=== PATIENT | male | born 1955 | race Caucasian/White ===

== ENCOUNTER 2018-12-04 01:06 | Inpatient (IN) | payer BC, MEDICARE, OTHER ==
[~2018-12-04] VITALS: Ht 180.3 cm; Wt 157.1 kg
[~2018-12-04 01:06] MED LIST: ASPI-587 PO; ATOR20TA66 PO; CEPH500C PO; CLIN-81 PO; GABA-488 PO; HYDR-3583 PO; HYDR-3714 PO; INSU100I14 SQ; INSU100I29 SQ; ISOS30TA3 PO; LEVE1U SQ; LIRA0.6P3 SQ; LISI10TA2 PO; LOVA10TA PO; METF-380 PO; METF-399 PO; METO-352 PO; MTP25TSR PO; NITR0.4T SL; NOVLOG SC; OMEG-160 PO; VITAMIN PACK PO; [UNRECOGNIZED DRUG - OTHER] PO
[2018-12-04 01:25] LABS: BASOPHILS % (AUTO) 0 % (0-10); EOSINOPHILS % (AUTO) 0 % (0-10); HEMATOCRIT 38 % (40-54); HEMOGLOBIN 12.8 G/DL (13.3-17.7); LYMPHOCYTES # (AUTO) 0.6 X 10^3 (1.0-4.0); LYMPHOCYTES % (AUTO) 3 % (12-44); MEAN CORPUSCULAR HEMOGLOBIN 30 PG (25-34); MEAN CORPUSCULAR HGB CONC 33 G/DL (32-36); MEAN CORPUSCULAR VOLUME 90 FL (80-99); MEAN PLATELET VOLUME 9.9 FL (7.4-10.4); MONOCYTES # (AUTO) 0.8 X 10^3 (0.0-1.0); MONOCYTES % (AUTO) 5 % (0-12); NEUTROPHILS # (AUTO) 15.8 X 10^3 (1.8-7.8); NEUTROPHILS % (AUTO) 92 % (42-75); PLATELET COUNT 222 10^3/uL (130-400); RED CELL DISTRIBUTION WIDTH 14.2 % (10.0-14.5); WHITE BLOOD COUNT 17.1 10^3/uL (4.3-11.0)
[2018-12-04] MEDS ORDERED: IBUPROFEN 800 MG (MOTRIN) TAB PO ONE (01:30)
[2018-12-04] MEDS ORDERED: ACETAMINOPHEN 500 MG TAB (TYLENOL) PO ONE (01:30)
[2018-12-04 01:34] LABS: INR 1.1 (0.8-1.4); PROTHROMBIN TIME PATIENT 14.9 SEC (12.2-14.7)
[2018-12-04 01:41] LABS: ALBUMIN 4.1 GM/DL (3.2-4.5); BILIRUBIN,TOTAL 0.6 MG/DL (0.1-1.0); CALCIUM 9.1 MG/DL (8.5-10.1); CREATININE SERUM 1.89 MG/DL (0.60-1.30); TOTAL PROTEIN 7.8 GM/DL (6.4-8.2)
[2018-12-04 01:52] LABS: BAND NEUTROPHILS 15 %; LYMPHOCYTES % (MANUAL) 5 %; MONOCYTES % (MANUAL) 7 %; NEUTROPHILS % (MANUAL) 72 %; RBC MORPH NORMAL; TOXIC GRANULATION/VACUOLAZATIO 1+
--- NOTE | 2018-12-04 02:07 | ED General ---
General Chief Complaint: Fever-Adult/Adol Stated Complaint: COUGH,FEVER Nursing Triage Note: fever, dry cough, intermittant abdominal/chest wall pain with coughing x2 weeks. left leg swelling x3 weeks Nursing Sepsis Screen: Possible Sepsis Risk Source of Information: Patient (LIMITED HISTORIAN), EMS History of Present Illness Date Seen by Provider: Dec 04, 2018 Time Seen by Provider: 01:05 Initial Comments PT ARRIVES VIA EMS EMS WAS CALLED BY PT'S . PT WAS IN THE CAR, AND WAS PICKING UP HIS FROM WORK, AND REPORTED TO EMS THAT HE WAS NOT ACTING LIKE HIMSELF EMS NOTED THAT PT HAD TEMP OF 102.9 AT THE SCENE--NO MEDICATIONS GIVEN FOR FEVER. PT WAS UNAWARE THAT HE HAD FEVER PT STATES HE HAS HAD AN NON-PRODUCTIVE COUGH FOR "A COUPLE OF WEEKS" STATES COUGHING MAKES HIS CHEST AND HIS ABDOMEN HURT. + NAUSEA, NO VOMITING IS SHORT OF BREATH WITH MINIMAL EXERTION, NOTED BY EMS. O2 SAT 90-91% ON ROOM AIR, UP TO 97-98% ON O2 AT 2L/NC, PER EMS ACCUCHECK 161 BY EMS PT HAS HAD LEFT LEG SWELLING AND REDNESS FOR 3 WEEKS ON ARRIVAL, PT IS NOT WEARING ANY PANTS OR UNDERWEAR--IS ONLY WEARING A SLEEVELESS T-SHIRT, AND SHOES/BOOTS AND SOCKS. 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 PT STATES HE SAW DR. ALEXIS 'A COUPLE OF WEEKS AGO" --FOR ROUTINE EXAM, AND MEDICATION REFILLS, BUT DID NOT ADDRESS PT'S CURRENT COMPLAINTS. PT STATES THAT HE DID HAVE A FEVER WHEN HE WAS IN THE OFFICE, BUT DOES NOT KNOW WHAT THE READING WAS. PT STATES HE HAS NOT CHECKED HIS TEMP AT HOME, AND HAS NOT TAKEN ANYTHING FOR SYMPTOMS PCP: DR. ALEXIS, [facility] Allergies and Home Medications Allergies Coded Allergies: JORGEANo Known Allergies (Verified Allergy, Unknown, 05/15/05) Home Medications Aspirin 81 Mg Tablet., 81 MG PO DAILY, (Reported) Gabapentin 300 Mg Capsule, 300 MG PO BID Prescribed by: ROME RAINEY on 08/18/15 0631 Insulin Aspart 300 Units/3 Ml Solution, 20 UNITS SQ AC, (Reported) WILL ADJUST BY 1 TO 2 UNITS BASED ON WHAT HE IS EATING Insulin Detemir 100 Unit/1 Ml Insuln.pen, 58 UNITS SQ HS, (Reported) Isosorbide Mononitrate 30 Mg Tab.er.24h, 30 MG PO DAILY, (Reported) Liraglutide 0.6 Mg/0.1 Ml Pen.injctr, 1.8 MG SQ HS, (Reported) Lisinopril 10 Mg Tablet, 10 MG PO HS, (Reported) Lovastatin 10 Mg Tablet, 10 MG PO DAILY, (Reported) Metformin HCl 1,000 Mg Tablet, 1,000 MG PO BID, (Reported) Metoprolol Succinate 50 Mg Tab.er.24h, 50 MG PO DAILY, (Reported) Nitroglycerin 0.4 Mg Tab.subl, 0.4 MG SL Q5M PRN for CHEST PAIN Prescribed by: JOHN MOHAN on 06/11/15 1147 [place]-3/Dha/Epa/Fish Oil 1 Each Capsule, 1,000 MG PO DAILY, (Reported) [Vitamin Pack] , 1 PACKET PO DAILY, (Reported) Patient Home Medication List Home Medication List Reviewed: Yes Review of Systems Review of Systems Constitutional: fever Respiratory: cough; No short of breath, No wheezing Cardiovascular: see HPI, chest pain Gastrointestinal: see HPI, abdominal pain, nausea; No vomiting Genitourinary: no symptoms reported Musculoskeletal: see HPI Skin: see HPI Psychiatric/Neurological: See HPI; Denies Headache, Denies Numbness, Denies Paresthesia Hematologic/Lymphatic: No Symptoms Reported Immunological/Allergic: no symptoms reported Past Dqzevwt-Qcpudo-Gdjbib Hx Past Med/Social Hx: Reviewed and Corrections made Patient Social History Alcohol Use: Occasionally Uses (HISTORY OF ABUSE--STATES HE USED TO DRINK 3 GALLONS OF WHISKEY / MONTH--OVER 20 YEARS AGO, CLAIMS NOW HE ONLY OCCASIONALLY DRINKS. ) Recreational Drug Use: No Smoking Status: Former Smoker (3 PPD, QUIT 2004 OR 2005) Former Smoker, Quit: Aug 15, 2005 Recent Foreign Travel: No Contact w/Someone Who Travel: No Recent Infectious Disease Expo: No Recent Hopitalizations: No Physical Abuse: No Sexual Abuse: No Mistreated: No Fear: No Immunizations Up To Date Tetanus Booster (TDap): More than 5yrs Seasonal Allergies Seasonal Allergies: No Past Medical History Surgeries: Yes (UMBILICAL/VENTRAL HERNIA REPAIR, THEN INCISIONAL HERNIA REPAIR; CARDIAC CATH--NO INTERVENTION) Abdominal, Cardiac Respiratory: No (FORMER SMOKER 3 PPD, QUIT 2004 OR 2005) Currently Using CPAP: No Currently Using BIPAP: No Cardiac: Yes (CARDIAC CATH--NO INTERVENTION) Chronic Edema/Swelling, High Cholesterol, Hypertension Neurological: Yes Neuropathy Reproductive Disorders: No Sexually Transmitted Disease: No Genitourinary: No Gastrointestinal: Yes Abdominal Hernia Musculoskeletal: No Endocrine: Yes (MORBID OBESITY) Diabetes, Insulin dep HEENT: No Loss of Vision: Denies Hearing Impairment: Denies Cancer: No Psychosocial: No Integumentary: No Blood Disorders: No Family Medical History Diabetes mellitus 19 FATHER G8 BROTHER Hypertension G8 BROTHER Myocardial infarction 19 FATHER, Onset:50's - 60 Physical Exam Vital Signs Vital Signs - First Documented 12/04/18 01:08 Temp 40.3 Pulse 124 Resp 22 B/P (MAP) 178/104 (128) Pulse Ox 97 O2 Delivery Nasal Cannula O2 Flow Rate 2.00 Capillary Refill : Less Than 3 Seconds Height, Weight, BMI Height: 5'11" Weight: 260lbs. 0.0oz. 117.787740zl; 36.00 BMI Method:Stated General Appearance: Mild Distress (MILDLY DYSPNEIC ON ARRIVAL), Obese (MORBID), Other (DIRTY, MALODOROUS) HEENT: PERRL/EOMI, Other (POOR DENTITION WITH EXTENSIVE DECAY TO FEW REMAINING TEETH. ) Neck: Normal Inspection Respiratory: Decreased Breath Sounds; No Rales; Respiratory Distress (MILD); No Rhonci, No Wheezing; Other (TACHYPNEIC, LUNG SOUNDS DIMINISHED IN BASES) Cardiovascular: Tachycardia (130'S) Gastrointestinal: Non Tender, Soft Extremity: Normal Capillary Refill, Other (4+ EDEMA ON LEFT LOWER LEG, WITH DIFFUSE ERYTHEMA AND WARMTH TO LEFT LOWER LEG. HAS MULTIPLE SUPERFICIAL SCRATCHES TO LOWER LEGS, BUT NO SPECIFIC WOUND APPEARS TO BE THE SOURCE OF INFECTION. NO DRAINAGE. NO STREAKS. NO AREAS OF FLUCTUANCE. RIGHT LEG WITH 3+ EDEMA. STRONG PEDAL PULSES BILATERALLY. MOTOR/SENSORY INTACT. ) Neurologic/Psychiatric: Alert, Oriented x3 (BUT SLIGHTLY SLOW MENTATION ?), No Motor/Sensory Deficits, Normal Mood/Affect, figure model II-XII Norm as Tested Skin: Normal Color, Warm/Dry, Other ( ABOVE) Focused Exam Sepsis Stage: Sepsis Possible Source: Pulmonary Lactate Level 12/04/18 01:12: Lactic Acid Level 1.46 Time of Focused Exam: 02:30 Respiratory: Normal Breath Sounds, No Accessory Muscle Use, No Respiratory Distress Cardiovascular: Regular Rate, Rhythm, No Murmur, Normal Peripheral Pulses Skin: normal color, warm/dry Lactic Acid Level Within 3hrs of presentation: Admin fluids, Admin ABX, Blood cultures prior to ABX's, Focus exam, Lactate level Progress/Results/Core Measures Suspected Sepsis Recent Fever Within 48 Hours: Yes Infection Criteria Present: Suspected New Infection New/Unexplained Altered Menta: No Sepsis Screen: Possible Sepsis Risk SIRS Temperature: Pulse: 123 Respiratory Rate: 22 Laboratory Tests 12/04/18 01:12: White Blood Count 17.1H 12/04/18 05:17: White Blood Count 17.4H Blood Pressure 168 /113 Mean: 131 12/04/18 01:12: Lactic Acid Level 1.46 Laboratory Tests 12/04/18 01:12: Creatinine 1.89H, INR Comment 1.1, Platelet Count 222, Total Bilirubin 0.6 12/04/18 05:17: Creatinine 1.93H, Platelet Count 203, Total Bilirubin 0.7 Results/Orders Lab Results Laboratory Tests Test 12/04/18 01:12 12/04/18 02:27 12/04/18 05:17 Range/Units White Blood Count 17.1 H 17.4 H 4.3-11.0 10^3/uL Red Blood Count 4.25 L 3.84 L 4.35-5.85 10^6/uL Hemoglobin 12.8 L 11.6 L 13.3-17.7 G/DL Hematocrit 38 L 35 L 40-54 % Mean Corpuscular Volume 90 91 80-99 FL Mean Corpuscular Hemoglobin 30 30 25-34 PG Mean Corpuscular Hemoglobin Concent 33 33 32-36 G/DL Red Cell Distribution Width 14.2 14.3 10.0-14.5 % Platelet Count 222 203 130-400 10^3/uL Mean Platelet Volume 9.9 10.1 7.4-10.4 FL Neutrophils (%) (Auto) 92 H 89 H 42-75 % Lymphocytes (%) (Auto) 3 L 4 L 12-44 % Monocytes (%) (Auto) 5 7 0-12 % Eosinophils (%) (Auto) 0 0 0-10 % Basophils (%) (Auto) 0 0 0-10 % Neutrophils # (Auto) 15.8 H 15.6 H 1.8-7.8 X 10^3 Lymphocytes # (Auto) 0.6 L 0.6 L 1.0-4.0 X 10^3 Monocytes # (Auto) 0.8 1.2 H 0.0-1.0 X 10^3 Eosinophils # (Auto) 0.0 0.0 0.0-0.3 10^3/uL Basophils # (Auto) 0.0 0.0 0.0-0.1 10^3/uL Neutrophils % (Manual) 72 % Lymphocytes % (Manual) 5 % Monocytes % (Manual) 7 % Band Neutrophils 15 % Toxic Granulation 1+ Blood Morphology Comment NORMAL Prothrombin Time 14.9 H 12.2-14.7 SEC INR Comment 1.1 0.8-1.4 Activated Partial Thromboplast Time 30 24-35 SEC Sodium Level 139 139 135-145 MMOL/L Potassium Level 5.0 4.6 3.6-5.0 MMOL/L Chloride Level 104 107 98-107 MMOL/L Carbon Dioxide Level 21 20 L 21-32 MMOL/L Anion Gap 14 12 5-14 MMOL/L Blood Urea Nitrogen 32 H 33 H 7-18 MG/DL Creatinine 1.89 H 1.93 H 0.60-1.30 MG/DL Estimat Glomerular Filtration Rate 36 35 BUN/Creatinine Ratio 17 17 Glucose Level 146 H 156 H 70-105 MG/DL Lactic Acid Level 1.46 0.50-2.00 MMOL/L Calcium Level 9.1 8.2 L 8.5-10.1 MG/DL Corrected Calcium 9.0 8.5 8.5-10.1 MG/DL Magnesium Level 1.8 1.6-2.4 MG/DL Total Bilirubin 0.6 0.7 0.1-1.0 MG/DL Aspartate Amino Transf (AST/SGOT) 22 17 5-34 U/L Alanine Aminotransferase (ALT/SGPT) 26 22 0-55 U/L Alkaline Phosphatase 61 51 40-136 U/L Troponin I < 0.028 <0.028 NG/ML B-Type Natriuretic Peptide 313.4 H <100.0 PG/ML Total Protein 7.8 6.6 6.4-8.2 GM/DL Albumin 4.1 3.6 3.2-4.5 GM/DL Amylase Level 44 25-125 U/L Lipase 16 8-78 U/L TSH [place] Testing 1.31 0.35-4.94 UIU/ML Urine Color YELLOW Urine Clarity CLEAR Urine pH 6 5-9 Urine Specific [place] 1.015 L 1.016-1.022 Urine Protein 4+ NEGATIVE Urine Glucose (UA) 4+ H NEGATIVE Urine Ketones 1+ H NEGATIVE Urine Nitrite NEGATIVE NEGATIVE Urine Bilirubin NEGATIVE NEGATIVE Urine Urobilinogen NORMAL NORMAL MG/DL Urine Leukocyte Esterase NEGATIVE NEGATIVE Urine RBC (Auto) 4+ H NEGATIVE Urine RBC 50-100 H /HPF Urine WBC RARE /HPF Urine Squamous Epithelial Cells 0-2 /HPF Urine Crystals NONE /LPF Urine Bacteria FEW H /HPF Urine Casts NONE /LPF Urine Mucus NEGATIVE /LPF Urine Culture Indicated CULTURE PENDING Micro Results Microbiology 12/04/18 Influenza Types A,B Antigen (TISHA) - Final, Complete My Orders Orders - HEAVENLY RIVERA DO Cbc With Automated Diff (12/04/18 01:07) Comprehensive Metabolic Panel (12/04/18 01:07) Blood Culture (12/04/18 01:07) Sputum Culture (12/04/18 01:07) Urinalysis (12/04/18 01:07) Urine Culture (12/04/18 01:07) Protime With Inr (12/04/18 01:07) Partial Thromboplastin Time (12/04/18 01:07) Chest 1 View, Ap/Pa Only (12/04/18 01:07) Ed Iv/Invasive Line Start (12/04/18 01:07) Ed Iv/Invasive Line Start (12/04/18 01:07) Vital Signs Adult Sepsis Patie Q15M (12/04/18 01:07) O2 (12/04/18 01:07) Remove Rings In Anticipation O (12/04/18 01:07) Lactic Acid Analyzer (12/04/18 01:07) Influenza A And B Antigens (12/04/18 01:07) Acetaminophen Tablet (Tylenol Tablet) (12/04/18 01:30) Ibuprofen Tablet (Motrin Tablet) (12/04/18 01:30) Manual Differential (12/04/18 01:12) BNP (12/04/18 02:15) Magnesium (12/04/18 02:15) Thyroid Analyzer (12/04/18 02:15) Ed Iv/Invasive Line Start (12/04/18 02:15) Ns Iv 1000 Ml (Sodium Chloride 0.9%) (12/04/18 02:15) Troponin I (12/04/18 02:18) Piperacillin Sodium/Tazobactam (Zosyn Vi (12/04/18 02:30) Vancomycin Injection (Vancomycin Injecti (12/04/18 02:30) Ns (Ivpb) (Sodium Chloride 0.9% Ivpb Bag (12/04/18 02:15) Piperacillin Sodium/Tazobactam (Zosyn Vi (12/04/18 02:15) Vancomycin Injection (Vancomycin Injecti (12/04/18 02:15) Ns (Ivpb) (Sodium Chloride 0.9%) (12/04/18 02:15) Amylase (12/04/18 02:26) Lipase (12/04/18 02:26) Enoxaparin Injection (Lovenox Injection) (12/04/18 02:45) Medications Given in ED Current Medications Medications Dose Ordered Sig/Mayra Route Start Time Stop Time Status Last Admin Dose Admin Acetaminophen 1,000 mg ONCE ONCE PO 12/04/18 01:30 12/04/18 01:31 DC 12/04/18 01:23 1,000 MG Enoxaparin Sodium 120 mg ONCE ONCE SC 12/04/18 02:45 12/04/18 02:46 DC 12/04/18 02:50 120 MG Ibuprofen 800 mg ONCE ONCE PO 12/04/18 01:30 12/04/18 01:31 DC 12/04/18 01:23 800 MG Piperacillin Sod/ Tazobactam Sod 4.5 gm/Sodium Chloride 100 ml @ 200 mls/hr ONCE ONCE IV 12/04/18 02:30 12/04/18 02:59 DC 12/04/18 02:31 200 MLS/HR Vancomycin HCl 1000 mg/Sodium Chloride 250 ml @ 250 mls/hr ONCE ONCE IV 12/04/18 02:30 12/04/18 03:29 DC 12/04/18 03:06 250 MLS/HR Vital Signs/I&O 12/04/18 12/04/18 12/04/18 12/04/18 01:08 01:20 01:23 01:23 Temp 40.3 40.3 40.3 Pulse 124 Resp 22 B/P (MAP) 178/104 (128) Pulse Ox 97 97 O2 Delivery Nasal Cannula Nasal Cannula O2 Flow Rate 2.00 2.00 12/04/18 12/04/18 12/04/18 12/04/18 01:41 02:55 04:05 05:12 Temp 40.3 39.2 37.5 37.5 Pulse 123 116 84 84 Resp 22 16 20 B/P (MAP) 168/113 144/77 (131) 127/69 Pulse Ox 95 95 95 95 O2 Delivery Nasal Cannula Nasal Cannula Nasal Cannula O2 Flow Rate 2.00 2.00 4.00 12/04/18 12/04/18 05:15 05:39 Pulse 78 Pulse Ox 95 O2 Delivery Nasal Cannula O2 Flow Rate 4.00 Capillary Refill : Less Than 3 Seconds Blood Pressure Mean: 131 Progress Note : Progress Note O2 SATS 90-91% ON ROOM AIR--UP TO 98% ON 2L/NC TEMP 104 ON ARRIVAL HEART RATE IN 130'S ON ARRIVAL BP 170'S / 110'S ON ARRIVAL RESPIRATORY RATE IN 30'S ON ARRIVAL NO DETERIORATION IN PT'S CONDITION DURING ER STAY TEMP DOWN, HEART RATE DOWN, RESPIRATORY RATE DOWN, AND BP DOWN AT TIME OF ADMIT-NOW CLOSER TO NORMAL RANGE. ECG Initial ECG Impression Date: Dec 04, 2018 Initial ECG Impression Time: 01:24 Initial ECG Rate: 120 Initial ECG Impression: Nonspecific Changes Comment JUNCTIONAL TACHYCARDIA Diagnostic Imaging Comments CXR--CARDIOMEGALY, BIBASILAR INFILTRATES/ATELECTASIS, MILD VASCULAR CONGESTION. PENDING RADIOLOGIST REVIEW Reviewed: Reviewed by Me Departure Communication (Admissions) [id number]--SPOKE WITH DR. BUI, HOSPITALIST SUPERINTENDENT [employer] FOR [facility] [place]. ACCEPTS PT FOR ADMIT. WOULD LIKE DR. SMITH AND DR. MILAN CONSULTED. Impression Primary Impression: Sepsis Additional Impressions: Cellulitis of left lower leg Pneumonia IDDM (insulin dependent diabetes mellitus) Chronic renal failure HTN (hypertension) Disposition: ADMITTED INPATIENT Condition: Stable Admissions Decision to Admit Reason: Admit from ER (General) Decision to Admit/Date: Dec 04, 2018 Time/Decision to Admit Time: 02:50 Departure-Patient Inst. Referrals: EB ALEXIS MD (PCP/Family) Primary Care Physician HEAVENLY RIVERA DO Dec 04, 2018 02:07
[2018-12-04] MEDS ORDERED: NS (IVPB) 100 ML ONE (02:15)
[2018-12-04] MEDS ORDERED: NS (IVPB) 250 ML ONE (02:15)
[2018-12-04] MEDS ORDERED: NS IV 1000 ML 1,000 ML IV SCH (02:15)
[2018-12-04] MEDS ORDERED: VANCOMYCIN 1000 MG/VIAL ONE (02:15)
[2018-12-04] MEDS ORDERED: PIPERACILLIN/TAZO 4.5 GM VIAL (ZOSYN) IV ONE (02:15)
[2018-12-04] MEDS ORDERED: PIPERACILLIN SODIUM/TAZOBACTAM 4.5 GM in NS (IVPB) 100 ML IV ONE (02:30)
[2018-12-04] MEDS ORDERED: VANCOMYCIN INJECTION 1,000 MG in NS (IVPB) 250 ML IV ONE (02:30)
[2018-12-04 02:33] LABS: MAGNESIUM 1.8 MG/DL (1.6-2.4)
[2018-12-04 02:38] LABS: BILIRUBIN,URINE NEGATIVE (NEGATIVE); CLARITY,URINE CLEAR; COLOR,URINE YELLOW; GLUCOSE, URINE (UA) 4+ (NEGATIVE); KETONES,URINE 1+ (NEGATIVE); LEUKOCYTE ESTERASE ,URINE NEGATIVE (NEGATIVE); NITRITE,URINE NEGATIVE (NEGATIVE); PH,URINE 6 (5-9); PROTEIN,URINE 4+ (NEGATIVE); UROBILINOGEN,URINE NORMAL (NORMAL)
[2018-12-04 02:44] LABS: AMYLASE 44 U/L (25-125); LIPASE 16 U/L (8-78)
[2018-12-04] MEDS ORDERED: ENOXAPARIN 60 MG/0.6 ML (LOVENOX) SYR SC ONE (02:45)
[2018-12-04 02:47] LABS: RBC,URINE 50-100 /HPF
[2018-12-04 02:48] LABS: BACTERIA,URINE FEW /HPF; SQUAMOUS EPITHELIAL CELL,UR 0-2 /HPF; WBC,URINE RARE /HPF
[2018-12-04 02:54] LABS: TSH (THYROID ANALYZER) 1.31 UIU/ML (0.35-4.94)
[2018-12-04 04:05] VITALS: BP 127/69
[2018-12-04] MEDS: NS IV 1000 ML 1,000 ML IV SCH ×4 (05:00→22:14)
[2018-12-04 05:12] VITALS: BP 127/69
[2018-12-04] MEDS ORDERED: RT-ALBUTEROL/IPRATROPIUM 3 ML (DUONEB) VIAL INH PRN (05:30)
[2018-12-04 06:00] LABS: BASOPHILS % (AUTO) 0 % (0-10); EOSINOPHILS % (AUTO) 0 % (0-10); HEMATOCRIT 35 % (40-54); HEMOGLOBIN 11.6 G/DL (13.3-17.7); LYMPHOCYTES # (AUTO) 0.6 X 10^3 (1.0-4.0); LYMPHOCYTES % (AUTO) 4 % (12-44); MEAN CORPUSCULAR HEMOGLOBIN 30 PG (25-34); MEAN CORPUSCULAR HGB CONC 33 G/DL (32-36); MEAN CORPUSCULAR VOLUME 91 FL (80-99); MEAN PLATELET VOLUME 10.1 FL (7.4-10.4); MONOCYTES # (AUTO) 1.2 X 10^3 (0.0-1.0); MONOCYTES % (AUTO) 7 % (0-12); NEUTROPHILS # (AUTO) 15.6 X 10^3 (1.8-7.8); NEUTROPHILS % (AUTO) 89 % (42-75); PLATELET COUNT 203 10^3/uL (130-400); RED CELL DISTRIBUTION WIDTH 14.3 % (10.0-14.5); WHITE BLOOD COUNT 17.4 10^3/uL (4.3-11.0)
[2018-12-04] MEDS ORDERED: IBUPROFEN 800 MG (MOTRIN) TAB PO PRN (06:00)
[2018-12-04 06:18] LABS: ALBUMIN 3.6 GM/DL (3.2-4.5); BILIRUBIN,TOTAL 0.7 MG/DL (0.1-1.0); CALCIUM 8.2 MG/DL (8.5-10.1); CREATININE SERUM 1.93 MG/DL (0.60-1.30); POTASSIUM 4.6 MMOL/L (3.6-5.0); TOTAL PROTEIN 6.6 GM/DL (6.4-8.2)
[2018-12-04] MEDS: inSUlin ASPART (NovoLOG) 1 UNIT/0.01 ML (CHARGE PER UNIT) SC SCH ×5 (06:58→21:14)
--- NOTE | 2018-12-04 07:30 | CONSULTATION REPORT ---
DATE OF SERVICE: 12/04/2018 ADMITTING PHYSICIAN: Dr. Villagomez. ATTENDING/PRIMARY CARE PHYSICIAN: Dr. Degroot. HISTORY OF PRESENT ILLNESS: The patient is a 63-year-old male who presented to the Emergency Department with a 2-week history of a cough and sputum production as well as fevers at home. His had noted that he was somewhat confused as well. He also did report increased shortness of breath as well. It was also noted to have swelling and redness of the left lower extremity; however, he states that this has been an issue for the past six months. Upon examination, there is redness, swelling and mild erythema consistent with a cellulitis. There is no fluctuance to indicate any abscess. He does have chronic venous insufficiency changes of bilateral lower extremities, which is considerably worse on the left side. Upon further evaluation, was found to have pneumonia as well. PAST MEDICAL HISTORY: Insulin-dependent diabetes, hypertension, hypercholesterolemia, chronic lower extremity venous insufficiency, neuropathy, morbid obesity. PAST SURGICAL HISTORY: Ventral abdominal hernia repair. ALLERGIES: No known drug allergies. MEDICATIONS: Aspirin 81 mg daily, gabapentin 300 mg b.i.d., insulin 20 units q.a.c, detemir insulin 60 units each day at bedtime, isosorbide mononitrate 30 mg daily, liraglutide 1.8 mg subcutaneous at bedtime, lisinopril 10 mg daily, lovastatin 10 mg daily, metformin 1000 mg b.i.d., metoprolol 50 mg daily, nitroglycerin p.r.n. SOCIAL HISTORY: Previous smoker, negative alcohol. FAMILY HISTORY: Father of myocardial infarction in his 50s. Father and brother, diabetes. Brother hypertension. VITAL SIGNS: Temperature 37.5, pulse 78, blood pressure 127/69, pulse oximetry 95% on 4 liters nasal cannula. REVIEW OF SYSTEMS: Well-nourished male currently in no acute distress. He is not experiencing any shortness of breath or difficulty breathing. No chest pain, palpitations, diaphoresis. No nausea or vomiting, no diarrhea or constipation. He has had a cough and sputum production as well as fevers at home. No recent inadvertent weight loss. All other review of systems negative. PHYSICAL EXAMINATION: CHEST: A few scattered rales and rhonchi bilaterally. HEART: Regular, no murmurs. EXTREMITIES: Bilateral lower extremity edema with the left worse than the right with signs of chronic venous insufficiency as well as lymphedema and cellulitis on the anterior evans with no abscess. HEENT: No scleral icterus. NECK: No cervical lymphadenopathy. ABDOMEN: Soft, nontender, nondistended. SKIN: Warm, dry. LABORATORY DATA: WBC 17.4, hemoglobin 11.6, hematocrit 35, platelets 203. BUN 33, creatinine 1.93. ASSESSMENT AND PLAN: A 63-year-old male with bilateral lower extremity edema and chronic venous insufficiency as well as cellulitis along the anterior left evans. We will recommend a conservative management with compression with a 4-inch Amari wrap from the mid foot to the upper evans and a 6-inch Amari wrap from the mid evans to the mid-thigh as well as elevation at all times. We will also continue with antibiotics. care home, he will need to have compression stockings on at all times. Job ID: [id number] DocumentID: [id number] Dictated Date: 12/04/2018 07:04:47 Spray Machine Tender Date: 12/04/2018 07:29:39 Dictated By: LOTTIE MILAN MD MTDD
[2018-12-04] MEDS: RT-ALBUTEROL/IPRATROPIUM 3 ML (DUONEB) VIAL INH SCH ×3 (07:42→20:34)
[2018-12-04 08:00] VITALS: BP 150/70
--- NOTE | 2018-12-04 08:13 | NUR ---
DR SMITH NOTIFIED OF CONSULT, DR MILAN HERE, LEFT LOWER LEG WRAPPED WITH BRANDEN WRAP ORDERED, LEG ELEVATED ON 2 PILLOWS, LEFT LOWER LEG 3+ EDEMA. CALL LIGHT WITHIN REACH
--- NOTE | 2018-12-04 08:21 | Diagnostic Imaging Report ---
EXAMINATION: Chest radiograph, portable AP view. DATE: December 04, 2018 at 0217 hours. INDICATION: 63-year-old male, cough. COMPARISON: August 16, 2015. FINDINGS: Stable overall appearance of the cardiomediastinal silhouette. There is no identified pneumothorax. There is some blunting of the left lateral costophrenic angle. Lung volumes are somewhat low. There is no clear interval focal airspace consolidation. There are technical limitations of the exam relating to patient body habitus and difficulties with exposure. IMPRESSION: 1. Blunting of the left lateral costophrenic angle which could relate to soft tissue overlap, atelectasis, infiltrate, and/or small effusion. 2. Without otherwise noted potential focal airspace consolidation. Dictated by: Dictated on workstation # [id number]
[2018-12-04] MEDS: PIPERACILLIN/TAZOBACTAM (BULK) 4.5 GM in NS (IVPB) 100 ML IV SCH ×3 (08:43→23:25)
--- NOTE | 2018-12-04 09:00 | NUR ---
UNABLE TO GET VENOUS ULTRASOUND OF LOWER LEG UNTIL THURSDAY, DOCTOR NOTIFIED
--- NOTE | 2018-12-04 09:04 | Pulmonary Consultation ---
History of Present Illness History of Present Illness Date of Consultation 12/04/18 09:01 Date of Admission Allergies and Home Medications Allergies Coded Allergies: JORGEANo Known Allergies (Verified Allergy, Unknown, 05/15/05) Home Medications Aspirin 81 Mg Tablet.dr, 81 MG PO DAILY, (Reported) Gabapentin 300 Mg Capsule, 300 MG PO BID Prescribed by: ROME RAINEY on 08/18/15 0631 Insulin Aspart 300 Units/3 Ml Solution, 20 UNITS SQ AC, (Reported) WILL ADJUST BY 1 TO 2 UNITS BASED ON WHAT HE IS EATING Insulin Detemir 100 Unit/1 Ml Insuln.pen, 58 UNITS SQ HS, (Reported) Isosorbide Mononitrate 30 Mg Tab.er.24h, 30 MG PO DAILY, (Reported) Liraglutide 0.6 Mg/0.1 Ml Pen.injctr, 1.8 MG SQ HS, (Reported) Lisinopril 10 Mg Tablet, 10 MG PO HS, (Reported) Lovastatin 10 Mg Tablet, 10 MG PO DAILY, (Reported) Metformin HCl 1,000 Mg Tablet, 1,000 MG PO BID, (Reported) Metoprolol Succinate 50 Mg Tab.er.24h, 50 MG PO DAILY, (Reported) Nitroglycerin 0.4 Mg Tab.subl, 0.4 MG SL Q5M PRN for CHEST PAIN Prescribed by: JOHN MOHAN on 06/11/15 1617 [place]-3/Dha/Epa/Fish Oil 1 Each Capsule, 1,000 MG PO DAILY, (Reported) [Vitamin Pack] , 1 PACKET PO DAILY, (Reported) Past Brjohgj-Kerrcb-Gcjmsm Hx Past Med/Social Hx: Reviewed and Corrections made Patient Social History Alcohol Use: Occasionally Uses (HISTORY OF ABUSE--STATES HE USED TO DRINK 3 GALLONS OF WHISKEY / MONTH--OVER 20 YEARS AGO, CLAIMS NOW HE ONLY OCCASIONALLY DRINKS. ) Recreational Drug Use: No Smoking Status: Former Smoker (3 PPD, QUIT 2004 OR 2005) Former Smoker, Quit: Aug 15, 2005 Recent Foreign Travel: No Contact w/Someone Who Travel: No Recent Infectious Disease Expo: No Recent Hopitalizations: No Physical Abuse: No Sexual Abuse: No Mistreated: No Fear: No Immunizations Up To Date Tetanus Booster (TDap): More than 5yrs Seasonal Allergies Seasonal Allergies: No Past Medical History Surgeries: Yes (UMBILICAL/VENTRAL HERNIA REPAIR, THEN INCISIONAL HERNIA REPAIR; CARDIAC CATH--NO INTERVENTION) Abdominal, Cardiac Respiratory: No (FORMER SMOKER 3 PPD, QUIT 2004 OR 2005) Currently Using CPAP: No Currently Using BIPAP: No Cardiac: Yes (CARDIAC CATH--NO INTERVENTION) Chronic Edema/Swelling, High Cholesterol, Hypertension Neurological: Yes Neuropathy Reproductive Disorders: No Sexually Transmitted Disease: No Genitourinary: No Gastrointestinal: Yes Abdominal Hernia Musculoskeletal: No Endocrine: Yes (MORBID OBESITY) Diabetes, Insulin dep HEENT: No Loss of Vision: Denies Hearing Impairment: Denies Cancer: No Psychosocial: No Integumentary: No Blood Disorders: No Family Medical History Diabetes mellitus 19 FATHER G8 BROTHER Hypertension G8 BROTHER Myocardial infarction 19 FATHER, Onset:50's - 60 Sepsis Event Evaluation Height, Weight, BMI Height: 5'11" Weight: 260lbs. 0.0oz. 117.252094ul; 48.32 BMI Method:Stated Exam Exam Vital Signs Date Time Temp Pulse Resp B/P (MAP) Pulse Ox O2 Delivery O2 Flow Rate FiO2 12/04/18 08:00 37.9 74 32 150/70 (96) 97 Room Air 12/04/18 07:45 95 Nasal Cannula 5.00 12/04/18 07:00 72 12/04/18 05:39 78 12/04/18 05:15 95 Nasal Cannula 4.00 12/04/18 05:12 37.5 84 95 12/04/18 04:05 37.5 84 20 127/69 95 Nasal Cannula 4.00 12/04/18 02:55 39.2 116 16 144/77 (131) 95 Nasal Cannula 2.00 12/04/18 01:41 40.3 123 22 168/113 95 Nasal Cannula 2.00 12/04/18 01:23 40.3 12/04/18 01:23 40.3 12/04/18 01:20 97 Nasal Cannula 2.00 12/04/18 01:08 40.3 124 22 178/104 (128) 97 Nasal Cannula 2.00 I & O 12/04/18 07:00 Intake Total 1600 ml Output Total 200 ml Balance 1400 ml Height & Weight Height: 5'11" Weight: 260lbs. 0.0oz. 117.876307iy; 48.32 BMI Method:Stated General Appearance: Mild Distress (MILDLY DYSPNEIC ON ARRIVAL), Obese (MORBID), Other (DIRTY, MALODOROUS) HEENT: PERRL/EOMI, Other (POOR DENTITION WITH EXTENSIVE DECAY TO FEW REMAINING TEETH. ) Neck: Normal Inspection Respiratory: Normal Breath Sounds, No Accessory Muscle Use, No Respiratory Distress Cardiovascular: Regular Rate, Rhythm, No Murmur, Normal Peripheral Pulses Capillary Refill: Less Than 3 Seconds Extremity: Normal Capillary Refill, Other (4+ EDEMA ON LEFT LOWER LEG, WITH DIFFUSE ERYTHEMA AND WARMTH TO LEFT LOWER LEG. HAS MULTIPLE SUPERFICIAL SCRATCHES TO LOWER LEGS, BUT NO SPECIFIC WOUND APPEARS TO BE THE SOURCE OF INFEC TION. NO DRAINAGE. NO STREAKS. NO AREAS OF FLUCTUANCE. RIGHT LEG WITH 3+ EDEMA. STRONG PEDAL PULSES BILATERALLY. MOTOR/SENSORY INTACT. 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
[2018-12-04] MEDS: ACETAMINOPHEN 500 MG TAB (TYLENOL) PO PRN ×2 (10:01→21:13)
[2018-12-04] MEDS: ENOXAPARIN 60 MG/0.6 ML (LOVENOX) SYR SC SCH ×2 (10:02→20:10)
--- NOTE | 2018-12-04 11:19 | History & Physical-Hospitalist ---
History of Present Illness HPI/Chief Complaint Chief complaint: Left leg cellulitis with pneumonia History of present illness: This is a 63-year-old white male chronically debilitated who presented to the ER with left leg cellulitis along with pneumonia and sepsis. He has a long-standing history of insulin-dependent diabetes along with CAD and patient was found to be in need of aggressive medical treatment supportive care to prevent decompensation. Dr. Florez has been consulted for the cellulitis. He has been placed on empiric antibiotics for the pneumonia and cellulitis. We'll restart home medications once reconciled. Source: patient, old records Exam Limitations: no limitations Date Seen 12/04/18 Time Seen by a Provider: 10:00 Attending Physician Sandra Bui DO PCP Neymar Degroot MD Referring Physician Date of Admission Dec 04, 2018 at 02:50 Home Medications & Allergies Home Medications Reviewed patient Home Medication Reconciliation performed by pharmacy medication reconciliations internetworking technician and/or nursing. Patients Allergies have been reviewed. Allergies Allergies Coded Allergies NKANo Known Allergies (Verified Allergy, Unknown, 05/15/05) Past [id number]-Oyawyz Hx Past Med/Social Hx: Reviewed Nursing Past Med/Soc Hx, Reviewed and Corrections made Patient Social History Marrital Status: Employed/Student: retired Alcohol Use: Occasionally Uses (HISTORY OF ABUSE--STATES HE USED TO DRINK 3 GALLONS OF WHISKEY / MONTH--OVER 20 YEARS AGO, CLAIMS NOW HE ONLY OCCASIONALLY DRINKS. ) Recreational Drug Use: No Smoking Status: Former Smoker (3 PPD, QUIT 2004 OR 2005) Former Smoker, Quit: Aug 15, 2005 Recent Foreign Travel: No Contact w/other who traveled: No Recent Hopitalizations: No Recent Infectious Disease Expo: No Immunizations Up To Date Tetanus Booster (TDap): More than 5yrs Seasonal Allergies Seasonal Allergies: No Past Medical History Surgeries: Abdominal, Cardiac Currently Using CPAP: No Currently Using BIPAP: No Cardiac: Chronic Edema/Swelling, High Cholesterol, Hypertension Neurological: Neuropathy Reproductive: No Sexually Transmitted Disease: No Gastrointestinal: Abdominal Hernia Endocrine: Diabetes, Insulin dep Loss of Vision: Denies Hearing Impairment: Denies History of Blood Disorders: No Family History Diabetes mellitus 19 FATHER G8 BROTHER Hypertension G8 BROTHER Myocardial infarction 19 FATHER, Onset:50's - 60 Review of Systems Constitutional: see HPI EENTM: no symptoms reported Respiratory: cough, dyspnea on exertion Cardiovascular: no symptoms reported Gastrointestinal: no symptoms reported Genitourinary: no symptoms reported Musculoskeletal: no symptoms reported Skin: see HPI Psychiatric/Neurological: No Symptoms Reported Physical Exam Physical Exam Vital Signs Vital Signs - First Documented 12/04/18 01:08 Temp 40.3 Pulse 124 Resp 22 B/P (MAP) 178/104 (128) Pulse Ox 97 O2 Delivery Nasal Cannula O2 Flow Rate 2.00 Capillary Refill : Less Than 3 Seconds Height, Weight, BMI Height: 5'11" Weight: 260lbs. 0.0oz. 117.099237nw; 48.32 BMI Method:Stated General Appearance: No Apparent Distress, WD/WN, Obese Eyes: Right Eye Normal Inspection, Right Eye PERRL HEENT: PERRL/EOMI, TMs Normal, Normal ENT Inspection, Pharynx Normal, Moist Mucous Membranes Neck: Full Range of Motion, Normal Inspection, Non Tender Respiratory: Chest Non Tender, No Accessory Muscle Use, No Respiratory Distress, Decreased Breath Sounds Cardiovascular: Regular Rate, Rhythm, No Edema, No Gallop, No JVD, No Murmur, Normal Peripheral Pulses Gastrointestinal: Normal Bowel Sounds, No Organomegaly, No Pulsatile Mass, Non Tender, Soft Back: Normal Inspection, No CVA Tenderness, No Vertebral Tenderness Extremity: Normal Capillary Refill, Normal Inspection, Normal Range of Motion, Non Tender, No Calf Tenderness, No Pedal Edema Neurologic/Psychiatric: Alert, Oriented x3, No Motor/Sensory Deficits, Normal Mood/Affect Skin: Normal Color, Warm/Dry, Other (left leg in evelina wrap) Lymphatic: No Adenopathy Results Results/Procedures Labs Laboratory Tests 12/04/18 01:12 12/04/18 05:17 Patient resulted labs reviewed. Assessment/Plan Admission Diagnosis Assessment: Left leg cellulitis Pneumonia CAD Diabetes mellitus insulin-dependent Morbid obesity BMI 48 Sepsis Plan: Home meds Dr. Gutiérrez consultation and Dr. Contreras consultation was appreciated along with Dr. Florez Monitor closely Admission Status: Inpatient Order (span 2 midnights) Reason for Inpatient Admission: Pneumonia and sepsis will require at least 3 days Diagnosis/Problems Diagnosis/Problems (1) Sepsis Status: Acute Qualifiers: Sepsis type: sepsis due to unspecified organism Sepsis acute organ dysfunction status: without acute organ dysfunction Qualified Codes: A41.9 - Sepsis, unspecified organism (2) Cellulitis of left lower leg Status: Acute (3) Pneumonia Status: Acute Qualifiers: Pneumonia type: due to unspecified organism Laterality: unspecified laterality Lung location: unspecified part of lung Qualified Codes: J18.9 - Pneumonia, unspecified organism (4) HTN (hypertension) Status: Acute Qualifiers: Hypertension type: essential hypertension Qualified Codes: I10 - Essential (primary) hypertension (5) Chronic renal failure Status: Chronic Qualifiers: Chronic kidney disease stage: stage 3 (moderate) Qualified Codes: N18.3 - Chronic kidney disease, stage 3 (moderate) (6) IDDM (insulin dependent diabetes mellitus) Status: Chronic (7) Hypoxia Status: Acute Clinical Quality Measures DVT/VTE Risk/Contraindication: Risk Factor Score Per Nursin RFS Level Per Nursing on Admit: 4+=Very High SANDRA BUI DO Dec 04, 2018 11:19
[2018-12-04 12:00] VITALS: BP 145/85
[2018-12-04] MEDS ORDERED: DICL75TA2 PO (12:59)
[2018-12-04] MEDS ORDERED: CANA100T PO (12:59)
[2018-12-04 15:50] VITALS: BP 116/65
[2018-12-04] MEDS: metFORMIN 500 MG (GLUCOPHAGE) TAB PO SCH (16:24)
[2018-12-04] MEDS: OMEGA 3 (FISH OIL) 1000 MG CAP PO SCH (20:08)
[2018-12-04] MEDS: SIMvastatin 10 MG (ZOCOR) TAB PO SCH (20:08)
[2018-12-04] MEDS: ETODOLAC 300 MG (LODINE) CAP PO SCH (20:08)
[2018-12-04 20:35] VITALS: BP 151/74
--- NOTE | 2018-12-04 21:55 | NUR ---
ADMIN 1000 MG TYLENOL FOR FEVER OF 38.8 C. RECHECKED AND STILL 38.1 C. WILL CONTINUE TO MONITOR.
[2018-12-05] VITALS (10 sets, daily range): BP systolic 108–177; BP diastolic 54–117
[2018-12-05] MEDS ORDERED: VANCOMYCIN 2000 MG/NS 500 ML IVPB IV SCH ×2 (02:00)
[2018-12-05 04:52] LABS: BASOPHILS % (AUTO) 0 % (0-10); EOSINOPHILS # (AUTO) 0.2 10^3/uL (0.0-0.3); EOSINOPHILS % (AUTO) 2 % (0-10); HEMATOCRIT 36 % (40-54); HEMOGLOBIN 11.3 G/DL (13.3-17.7); LYMPHOCYTES # (AUTO) 1.4 X 10^3 (1.0-4.0); LYMPHOCYTES % (AUTO) 13 % (12-44); MEAN CORPUSCULAR HEMOGLOBIN 30 PG (25-34); MEAN CORPUSCULAR HGB CONC 32 G/DL (32-36); MEAN CORPUSCULAR VOLUME 94 FL (80-99); MEAN PLATELET VOLUME 9.7 FL (7.4-10.4); MONOCYTES # (AUTO) 1.3 X 10^3 (0.0-1.0); MONOCYTES % (AUTO) 12 % (0-12); NEUTROPHILS # (AUTO) 8.1 X 10^3 (1.8-7.8); NEUTROPHILS % (AUTO) 73 % (42-75); PLATELET COUNT 183 10^3/uL (130-400); RED CELL DISTRIBUTION WIDTH 14.9 % (10.0-14.5); WHITE BLOOD COUNT 11.1 10^3/uL (4.3-11.0)
--- NOTE | 2018-12-05 05:00 | NUR ---
PT WOKE UP WITH A PANIC AND HAVING A DIFFICULT TIME BREATHING. RT CONTACTED AND THEY PROVIDED DUONEB TX. PT O2 SATS 92-95 ON 4 L. PT INSTRUCTED TO BREATHE THROUGH NOSE AND OUT THROUGH MOUTH. PT SITTING ON SIDE OF BED. HE STATES IT IS A LITTLE BETTER. DIMINISHED BLL CONTINUES. PT STATES THIS HAPPENS AT HOME TOO AND HAS TAKEN ALBUTEROL IN THE PAST.
[2018-12-05 05:20] LABS: ALBUMIN 3.4 GM/DL (3.2-4.5); BILIRUBIN,TOTAL 0.6 MG/DL (0.1-1.0); CALCIUM 8.2 MG/DL (8.5-10.1); CREATININE SERUM 1.9 MG/DL (0.60-1.30); POTASSIUM 4.5 MMOL/L (3.6-5.0); TOTAL PROTEIN 6.8 GM/DL (6.4-8.2)
[2018-12-05] MEDS: RT-ALBUTEROL/IPRATROPIUM 3 ML (DUONEB) VIAL INH SCH ×4 (05:20→19:16)
[2018-12-05] MEDS: inSUlin ASPART (NovoLOG) 1 UNIT/0.01 ML (CHARGE PER UNIT) SC SCH ×3 (05:40→16:47)
--- NOTE | 2018-12-05 07:00 | NUR ---
NOTIFIED DR. BUI AND DR. SMITH OF PT STATUS.
--- NOTE | 2018-12-05 07:35 | NUR ---
GOT DR SMITH'S ORDERS IN -- DR SMITH ON FLOOR AND SAW PT STOPPED IVFS -- AND WILL GIVE 40 ML OF LASIX AFTER LABS DRAWN -- PT REMAINS SOA AND UNABLE TO LAY DOWN IN BED --
[2018-12-05 07:36] LABS: ABG BASE EXCESS -3.4 MMOL/L (-2.5-2.5); ABG OXYGEN SATURATION 93 % (94-100); ABG PCO2 39 MMHG (35-45); ABG PH 7.35 (7.37-7.43); ABG PO2 68 MMHG (79-93); ABG TCO2 22.7 MMOL/L (21.0-31.0)
[2018-12-05 07:37] LABS: ALLENS TEST YES-POS
[2018-12-05 07:38] LABS: INSPIRED O2 5; PATIENT TEMP 35.7; VENTILATOR NO
--- NOTE | 2018-12-05 07:44 | Pulmonary Progress Note ---
Subjective Time Seen by a Provider: 07:43 Subjective/Events-last exam Complains of worsening SOB nonproductive cough Sepsis Event Evaluation Height, Weight, BMI Height: 5'11" Weight: 260lbs. 0.0oz. 117.815660xe; 48.32 BMI Method:Stated Focused Exam Lactate Level 12/04/18 01:12: Lactic Acid Level 1.46 Time of Focused Exam: 02:30 Exam Exam Vital Signs Date Time Temp Pulse Resp B/P (MAP) Pulse Ox O2 Delivery O2 Flow Rate FiO2 12/05/18 07:00 135 12/05/18 05:20 93 Nasal Cannula 4.50 12/05/18 04:06 36.8 72 18 156/66 (96) 99 Nasal Cannula 4.00 12/05/18 01:00 72 12/05/18 00:50 36.8 72 18 133/70 (91) 97 Nasal Cannula 4.00 12/04/18 21:53 38.1 12/04/18 21:13 38.8 12/04/18 20:55 38.8 12/04/18 20:35 38.5 86 20 151/74 (99) 94 Nasal Cannula 4.00 12/04/18 20:34 93 Nasal Cannula 4.50 12/04/18 20:00 Nasal Cannula 4.00 12/04/18 19:00 96 12/04/18 15:50 37.6 114 20 116/65 (82) 100 Nasal Cannula 4.00 12/04/18 14:41 97 Nasal Cannula 5.00 12/04/18 12:22 78 12/04/18 12:00 37.3 82 30 145/85 (105) 97 Room Air 12/04/18 08:00 Nasal Cannula 4.00 12/04/18 08:00 37.9 74 32 150/70 (96) 97 Room Air 12/04/18 07:45 95 Nasal Cannula 5.00 I & O 12/05/18 07:00 Intake Total 4200 ml Output Total 3250 ml Balance 950 ml Height & Weight Height: 5'11" Weight: 260lbs. 0.0oz. 117.878037um; 48.32 BMI Method:Stated General Appearance: WD/WN, Anxious, Mild Distress, Obese HEENT: PERRL/EOMI, TMs Normal, Normal ENT Inspection, Pharynx Normal, Moist Mucous Membranes Neck: Full Range of Motion, Normal Inspection, Non Tender Respiratory: Chest Non Tender, Crackles, Decreased Breath Sounds Cardiovascular: Regular Rate, Rhythm, Normal Peripheral Pulses Capillary Refill: Less Than 3 Seconds Extremity: Normal Capillary Refill, Normal Inspection, Normal Range of Motion, Non Tender, Pedal Edema Neurologic/Psychiatric: Alert, Oriented x3, No Motor/Sensory Deficits, Normal Mood/Affect Skin: Normal Color, Warm/Dry, Other (left leg in evelina wrap) Lymphatic: No Adenopathy Results Lab Laboratory Tests 12/04/18 01:12 12/04/18 05:17 12/05/18 04:30 Assessment/Plan Assessment/Plan Pneumonia with sepsis -Rojas culture -Abx - Vanco/Zosyn -repeat labs/CXR and ABG pending LLL cellulitis - IDDM Chronic anemia DEJA SMITH DO Dec 05, 2018 07:44
[2018-12-05 07:54] LABS: HEMOGLOBIN 11.4 G/DL (13.3-17.7); MEAN PLATELET VOLUME 9.3 FL (7.4-10.4); RED CELL DISTRIBUTION WIDTH 14.8 % (10.0-14.5); WHITE BLOOD COUNT 11.9 10^3/uL (4.3-11.0)
[2018-12-05] MEDS ORDERED: CATHETER FLUSH 10 ML SYR IV PRN (08:00)
[2018-12-05 08:13] LABS: BUN/CREATININE RATIO 17; CALCIUM 8.3 MG/DL (8.5-10.1); CARBON DIOXIDE 21 MMOL/L (21-32); CHLORIDE 106 MMOL/L (98-107); CREATININE SERUM 1.74 MG/DL (0.60-1.30); GFR ESTIMATED 40; GLUCOSE 184 MG/DL (70-105); PHOSPHORUS 2.9 MG/DL (2.3-4.7); POTASSIUM 4.6 MMOL/L (3.6-5.0); SODIUM 138 MMOL/L (135-145)
--- NOTE | 2018-12-05 08:38 | NUR ---
Vancomycin - Dosing and schedule adjusted to 1500mg every 12 hours. Trough scheduled for 12/06 @ 1300.
[2018-12-05] MEDS ORDERED: FUROSEMIDE 40 MG/4 ML INJ (LASIX) IVP ONE (08:45)
[2018-12-05] MEDS: metFORMIN 500 MG (GLUCOPHAGE) TAB PO SCH ×2 (08:50→16:47)
[2018-12-05] MEDS: PIPERACILLIN/TAZOBACTAM (BULK) 4.5 GM in NS (IVPB) 100 ML IV SCH ×2 (08:50→16:47)
[2018-12-05] MEDS: meTOproloL SUCCINATE 50 MG (TOPROL XL) TAB PO SCH (08:51)
[2018-12-05] MEDS: ETODOLAC 300 MG (LODINE) CAP PO SCH ×2 (08:51→22:51)
[2018-12-05] MEDS: OMEGA 3 (FISH OIL) 1000 MG CAP PO SCH ×2 (08:51→22:51)
[2018-12-05] MEDS: ASPIRIN 81 MG CHEW (CHILDREN'S ASA) PO SCH (08:51)
[2018-12-05] MEDS: ENOXAPARIN 60 MG/0.6 ML (LOVENOX) SYR SC SCH ×3 (08:59→23:03)
[2018-12-05] MEDS ORDERED: VITAMIN PACK PO SCH (09:00)
[2018-12-05] MEDS ORDERED: CANAGLIFLOZIN 100 MG PO SCH (09:00)
--- NOTE | 2018-12-05 10:14 | Consultation-Cardiology ---
HPI-Cardiology Cardiology Consultation Date of Consultation 12/05/18 Date of Admission Time Seen by Provider: 10:10 Indication: Coronary artery disease HPI 63 years old gentleman with history of coronary artery disease moderate disease, hypertension, hyperlipidemia, has been having increasing swelling in his lower extremities, admitted for cellulitis and pneumonia and being treated. He denied any chest pain, denied any palpitation, no syncope or near syncopal episodes. Home Medications & Allergies Allergies: Coded Allergies: NKANo Known Allergies (Verified Allergy, Unknown, 05/15/05) Home Medication List Reviewed: Yes [id number] Hx Patient Social History Marital Status: Employed/Student: retired Alcohol Use: Occasionally Uses (HISTORY OF ABUSE--STATES HE USED TO DRINK 3 GALLONS OF WHISKEY / MONTH--OVER 20 YEARS AGO, CLAIMS NOW HE ONLY OCCASIONALLY DRINKS. ) Recreational Drug Use: No Smoking Status: Former Smoker (3 PPD, QUIT 2004 OR 2005) Former smoker/When Quit: Mar 16, 2004 Recent Foreign Travel: No Recent Infectious Disease Expo: No Recent Hopitalizations: No Immunizations Up To Date Tetanus Booster (TDap): More than 5yrs Past Medical History Discussed below Family Medical History Family History: Diabetes mellitus 19 FATHER G8 BROTHER Hypertension G8 BROTHER Myocardial infarction 19 FATHER, Onset:50's - 60 Review of Systems-General Review of Systems Constitutional: see HPI, fever, malaise, weakness EENTM: no symptoms reported Respiratory: see HPI, cough, dyspnea on exertion Cardiovascular: see HPI; No chest pain; edema; No Hx of Intervention, No palpitations, No syncope, No vascular heart diseas, No other Gastrointestinal: no symptoms reported, see HPI Genitourinary: no symptoms reported, see HPI Musculoskeletal: no symptoms reported, see HPI Skin: see HPI Psychiatric/Neurological: No Symptoms Reported, See HPI Reviewed Test Results Reviewed Test Results Lab Laboratory Tests Test 12/04/18 11:18 12/04/18 15:51 12/04/18 20:39 12/05/18 04:30 Range/Units Glucometer 197 H 297 H 326 H 70-110 MG/DL White Blood Count 11.1 H 4.3-11.0 10^3/uL Red Blood Count 3.79 L 4.35-5.85 10^6/uL Hemoglobin 11.3 L 13.3-17.7 G/DL Hematocrit 36 L 40-54 % Mean Corpuscular Volume 94 80-99 FL Mean Corpuscular Hemoglobin 30 25-34 PG Mean Corpuscular Hemoglobin Concent 32 32-36 G/DL Red Cell Distribution Width 14.9 H 10.0-14.5 % Platelet Count 183 130-400 10^3/uL Mean Platelet Volume 9.7 7.4-10.4 FL Neutrophils (%) (Auto) 73 42-75 % Lymphocytes (%) (Auto) 13 12-44 % Monocytes (%) (Auto) 12 0-12 % Eosinophils (%) (Auto) 2 0-10 % Basophils (%) (Auto) 0 0-10 % Neutrophils # (Auto) 8.1 H 1.8-7.8 X 10^3 Lymphocytes # (Auto) 1.4 1.0-4.0 X 10^3 Monocytes # (Auto) 1.3 H 0.0-1.0 X 10^3 Eosinophils # (Auto) 0.2 0.0-0.3 10^3/uL Basophils # (Auto) 0.0 0.0-0.1 10^3/uL Sodium Level 140 135-145 MMOL/L Potassium Level 4.5 3.6-5.0 MMOL/L Chloride Level 107 98-107 MMOL/L Carbon Dioxide Level 23 21-32 MMOL/L Anion Gap 10 5-14 MMOL/L Blood Urea Nitrogen 29 H 7-18 MG/DL Creatinine 1.90 H 0.60-1.30 MG/DL Estimat Glomerular Filtration Rate 36 BUN/Creatinine Ratio 15 Glucose Level 151 H 70-105 MG/DL Calcium Level 8.2 L 8.5-10.1 MG/DL Corrected Calcium 8.7 8.5-10.1 MG/DL Total Bilirubin 0.6 0.1-1.0 MG/DL Aspartate Amino Transf (AST/SGOT) 20 5-34 U/L Alanine Aminotransferase (ALT/SGPT) 19 0-55 U/L Alkaline Phosphatase 52 40-136 U/L Total Protein 6.8 6.4-8.2 GM/DL Albumin 3.4 3.2-4.5 GM/DL Test 12/05/18 05:33 12/05/18 07:30 12/05/18 07:45 Range/Units Glucometer 164 H 70-110 MG/DL Blood Gas Puncture Site R RADIAL Blood Gas Patient Temperature 35.7 Arterial Blood pH 7.35 L 7.37-7.43 Arterial Blood Partial Pressure CO2 39 35-45 MMHG Arterial Blood Partial Pressure O2 68 L 79-93 MMHG Arterial Blood HCO3 22 L 23-27 MMOL/L Arterial Blood Total CO2 22.7 21.0-31.0 MMOL/L Arterial Blood Oxygen Saturation 93 L 94-100 % Arterial Blood Base Excess -3.4 L -2.5-2.5 MMOL/L Gurwinder Test YES-POS Blood Gas Ventilator Setting NO Blood Gas Inspired Oxygen 5 White Blood Count 11.9 H 4.3-11.0 10^3/uL Red Blood Count 3.82 L 4.35-5.85 10^6/uL Hemoglobin 11.4 L 13.3-17.7 G/DL Hematocrit 36 L 40-54 % Mean Corpuscular Volume 94 80-99 FL Mean Corpuscular Hemoglobin 30 25-34 PG Mean Corpuscular Hemoglobin Concent 32 32-36 G/DL Red Cell Distribution Width 14.8 H 10.0-14.5 % Platelet Count 196 130-400 10^3/uL Mean Platelet Volume 9.3 7.4-10.4 FL Sodium Level 138 135-145 MMOL/L Potassium Level 4.6 3.6-5.0 MMOL/L Chloride Level 106 98-107 MMOL/L Carbon Dioxide Level 21 21-32 MMOL/L Anion Gap 11 5-14 MMOL/L Blood Urea Nitrogen 29 H 7-18 MG/DL Creatinine 1.74 H 0.60-1.30 MG/DL Estimat Glomerular Filtration Rate 40 BUN/Creatinine Ratio 17 Glucose Level 184 H 70-105 MG/DL Lactic Acid Level 1.29 0.50-2.00 MMOL/L Calcium Level 8.3 L 8.5-10.1 MG/DL Phosphorus Level 2.9 2.3-4.7 MG/DL Magnesium Level 2.0 1.6-2.4 MG/DL Troponin I < 0.028 <0.028 NG/ML B-Type Natriuretic Peptide 648.5 H <100.0 PG/ML Physical Exam Physical Exam Vital Signs Vital Signs - First Documented 12/04/18 01:08 Temp 40.3 Pulse 124 Resp 22 B/P (MAP) 178/104 (128) Pulse Ox 97 O2 Delivery Nasal Cannula O2 Flow Rate 2.00 Capillary Refill : Less Than 3 Seconds Height, Weight, BMI Height: 5'11" Weight: 260lbs. 0.0oz. 117.084327fg; 48.32 BMI Method:Stated General Appearance: No Apparent Distress, WD/WN, Obese Eyes: Right Eye Normal Inspection, Right Eye PERRL HEENT: PERRL/EOMI, TMs Normal, Normal ENT Inspection, Pharynx Normal, Moist Mucous Membranes Neck: Full Range of Motion, Normal Inspection, Non Tender Respiratory: Chest Non Tender, No Accessory Muscle Use, No Respiratory Distress, Decreased Breath Sounds Cardiovascular: Regular Rate, Rhythm, No Edema, No Gallop, No JVD, No Murmur, Normal Peripheral Pulses Gastrointestinal: Normal Bowel Sounds, No Organomegaly, No Pulsatile Mass, Non Tender, Soft Back: Normal Inspection, No CVA Tenderness, No Vertebral Tenderness Extremity: Normal Capillary Refill, Normal Inspection, Normal Range of Motion, Non Tender, No Calf Tenderness, Pedal Edema (+2 right lower extremity edema, +3 left lower extremity edema) Neurologic/Psychiatric: Alert, Oriented x3, No Motor/Sensory Deficits, Normal Mood/Affect Skin: Normal Color, Warm/Dry, Other (left leg in evelina wrap) Lymphatic: No Adenopathy A/P-Cardiology Admission Diagnosis Pneumonia Sepsis Coronary artery disease Hypertension Assessment/Plan Pneumonia with sepsis, receiving antibiotics, managed by primary care team Cellulitis, managed by primary care team receiving antibiotics Peripheral edema, chronic, last workup was done in 2014, I'll repeat 2-D echocardiogram Coronary artery disease, history of cardiac catheterization done in 2015 showing coronary ectasia with slow flow, no significant obstructive disease. Conse rvative management Hypertension, restart medication monitor blood pressure Hyperlipidemia, monitor lipids Diabetes mellitus, followed and managed by primary care physician Morbid obesity, BMI 48. Clinical Quality Measures DVT/VTE Risk/Contraindication: Risk Factor Score Per Nursin RFS Level Per Nursing on Admit: 4+=Very High AMI SANTACRUZ MD Dec 05, 2018 10:14
--- NOTE | 2018-12-05 11:18 | Progress Note - Hospitalist ---
Subjective HPI/CC On Admission Date Seen by Provider: Dec 05, 2018 Time Seen by Provider: 10:00 Chief complaint: Left leg cellulitis with pneumonia History of present illness: This is a 63-year-old white male chronically debilitated who presented to the ER with left leg cellulitis along with pneumonia and sepsis. He has a long-standing history of insulin-dependent diabetes along with CAD and patient was found to be in need of aggressive medical treatment supportive care to prevent decompensation. Dr. Florez has been consulted for the cellulitis. He has been placed on empiric antibiotics for the pneumonia and cellulitis. We'll restart home medications once reconciled. Subjective/Events-last exam Had what appears to have been a panic attack earlier this morning White count 11.9 hemoglobin 11.[address] Florez service think the left leg cellulitis is improved and we are wrapping it with an Amari wrap Patient placed on telemetry and Dr. Dhaliwal and Dr. Contreras are both on board and consultations Patient feels a little better now Tolerating antibiotics Review of Systems General: Fatigue Pulmonary: Dyspnea Focused Exam Lactate Level 12/04/18 01:12: Lactic Acid Level 1.46 12/05/18 07:45: Lactic Acid Level 1.29 Time of Focused Exam: 02:30 Lactic Acid Level Objective Exam Vital Signs Vital Signs Date Time Temp Pulse Resp B/P (MAP) Pulse Ox O2 Delivery O2 Flow Rate FiO2 12/05/18 16:00 37.2 116 20 174/85 (114) 98 Nasal Cannula 3.00 Capillary Refill : Less Than 3 Seconds General Appearance: No Apparent Distress, WD/WN, Chronically ill, Obese Neck: Full Range of Motion, Normal Inspection, Non Tender, Supple, Carotid Bruit Respiratory: Chest Non Tender, Lungs Clear, Normal Breath Sounds, No Accessory Muscle Use, No Respiratory Distress Cardiovascular: Regular Rate, Rhythm, No Edema, No Gallop, No JVD, No Murmur, Normal Peripheral Pulses Neurologic/Psychiatric: Alert, Oriented x3, No Motor/Sensory Deficits, Normal Mood/Affect Results/Procedures Lab Laboratory Tests 12/05/18 04:30 12/05/18 07:45 Patient resulted labs reviewed. Assessment/Plan Assessment and Plan Assess & Plan/Chief Complaint Assessment: Left leg cellulitis Pneumonia CAD Diabetes mellitus insulin-dependent Morbid obesity BMI 48 Sepsis Panic attack? Plan: Home meds Dr. Gutiérrez consultation and Dr. Contreras consultation was appreciated along with Dr. Florez Monitor closely Diagnosis/Problems Diagnosis/Problems (1) Sepsis Status: Acute Qualifiers: Sepsis type: sepsis due to unspecified organism Sepsis acute organ dysfunction status: without acute organ dysfunction Qualified Codes: A41.9 - Sepsis, unspecified organism (2) Cellulitis of left lower leg Status: Acute (3) Pneumonia Status: Acute Qualifiers: Pneumonia type: due to unspecified organism Laterality: unspecified laterality Lung location: unspecified part of lung Qualified Codes: J18.9 - Pneumonia, unspecified organism (4) HTN (hypertension) Status: Acute Qualifiers: Hypertension type: essential hypertension Qualified Codes: I10 - Essential (primary) hypertension (5) Chronic renal failure Status: Chronic Qualifiers: Chronic kidney disease stage: stage 3 (moderate) Qualified Codes: N18.3 - Chronic kidney disease, stage 3 (moderate) (6) IDDM (insulin dependent diabetes mellitus) Status: Chronic (7) Hypoxia Status: Acute Clinical Quality Measures DVT/VTE Risk/Contraindication: Risk Factor Score Per Nursin RFS Level Per Nursing on Admit: 4+=Very High YARIEL BUI DO Dec 05, 2018 11:18
--- NOTE | 2018-12-05 11:25 | Progress Note ---
Subjective Date Seen by a Provider: Dec 05, 2018 Time Seen by a Provider: 10:45 Subjective/Events-last exam Patient seen with Dr. Florez. Patient reports doing well. Having some left leg discomfort but is improving. No fever/chills. No N/V. Tolerating diet and ambulating. Patient reports that the left lower leg redness is improving. Focused Exam Lactate Level 12/04/18 01:12: Lactic Acid Level 1.46 12/05/18 07:45: Lactic Acid Level 1.29 Time of Focused Exam: 02:30 Lactic Acid Level Laboratory Tests Test 12/05/18 07:45 Lactic Acid Level 1.29 MMOL/L (0.50-2.00) Objective Exam Vital Signs Date Time Temp Pulse Resp B/P (MAP) Pulse Ox O2 Delivery O2 Flow Rate FiO2 12/05/18 09:23 95 Nasal Cannula 5.00 12/05/18 09:15 37.2 12/05/18 09:15 37.2 12/05/18 08:00 37.2 148 24 174/94 (120) 94 Nasal Cannula 4.00 12/05/18 08:00 Nasal Cannula 4.00 12/05/18 07:00 135 12/05/18 05:20 93 Nasal Cannula 4.50 12/05/18 04:06 36.8 72 18 156/66 (96) 99 Nasal Cannula 4.00 12/05/18 01:00 72 12/05/18 00:50 36.8 72 18 133/70 (91) 97 Nasal Cannula 4.00 12/04/18 21:53 38.1 12/04/18 21:13 38.8 12/04/18 20:55 38.8 12/04/18 20:35 38.5 86 20 151/74 (99) 94 Nasal Cannula 4.00 12/04/18 20:34 93 Nasal Cannula 4.50 12/04/18 20:00 Nasal Cannula 4.00 12/04/18 19:00 96 12/04/18 15:50 37.6 114 20 116/65 (82) 100 Nasal Cannula 4.00 12/04/18 14:41 97 Nasal Cannula 5.00 12/04/18 12:22 78 12/04/18 12:00 37.3 82 30 145/85 (105) 97 Room Air I & O 12/05/18 07:00 Intake Total 4200 ml Output Total 3250 ml Balance 950 ml Capillary Refill : Less Than 3 Seconds General Appearance: No Apparent Distress, WD/WN Neck: Normal Inspection, Supple Respiratory: Normal Breath Sounds, No Accessory Muscle Use, No Respiratory Distress Cardiovascular: Regular Rate, Rhythm, No Murmur Gastrointestinal: normal bowel sounds, non tender, soft Extremity: Normal Capillary Refill, Normal Range of Motion, Swelling Neurologic/Psychiatric: Alert, Oriented x3 Skin: Warm/Dry, Other (mild redness of the left lower extremity.) Results Lab Laboratory Tests 12/04/18 15:51: Glucometer 297H 12/04/18 20:39: Glucometer 326H 12/05/18 04:30: White Blood Count 11.1H, Red Blood Count 3.79L, Hemoglobin 11.3L, Hematocrit 36L , Mean Corpuscular Volume 94, Mean Corpuscular Hemoglobin 30, Mean Corpuscular Hemoglobin Concent 32, Red Cell Distribution Width 14.9H, Platelet Count 183, Mean Platelet Volume 9.7, Neutrophils (%) (Auto) 73, Lymphocytes (%) (Auto) 13, Monocytes (%) (Auto) 12, Eosinophils (%) (Auto) 2, Basophils (%) (Auto) 0, Neutrophils # (Auto) 8.1H, Lymphocytes # (Auto) 1.4, Monocytes # (Auto) 1.3H, Eosinophils # (Auto) 0.2, Basophils # (Auto) 0.0, Sodium Level 140, Potassium Level 4.5, Chloride Level 107, Carbon Dioxide Level 23, Anion Gap 10, Blood Urea Nitrogen 29H, Creatinine 1.90H, Estimat Glomerular Filtration Rate 36, BUN/Creatinine Ratio 15, Glucose Level 151H, Calcium Level 8.2L, Corrected Calcium 8.7, Total Bilirubin 0.6, Aspartate Amino Transf (AST/SGOT) 20, Alanine Aminotransferase (ALT/SGPT) 19, Alkaline Phosphatase 52, Total Protein 6.8, Albumin 3.4 12/05/18 05:33: Glucometer 164H 12/05/18 07:30: Blood Gas Puncture Site R RADIAL, Blood Gas Patient Temperature 35.7, Arterial Blood pH 7.35L, Arterial Blood Partial Pressure CO2 39, Arterial Blood Partial Pressure O2 68L, Arterial Blood HCO3 22L, Arterial Blood Total CO2 22.7, Arterial Blood Oxygen Saturation 93L, Arterial Blood Base Excess -3.4L, Gurwinder Test YES-POS, Blood Gas Ventilator Setting NO, Blood Gas Inspired Oxygen 5 12/05/18 07:45: White Blood Count 11.9H, Red Blood Count 3.82L, Hemoglobin 11.4L, Hematocrit 36L , Mean Corpuscular Volume 94, Mean Corpuscular Hemoglobin 30, Mean Corpuscular Hemoglobin Concent 32, Red Cell Distribution Width 14.8H, Platelet Count 196, Mean Platelet Volume 9.3, Sodium Level 138, Potassium Level 4.6, Chloride Level 106, Carbon Dioxide Level 21, Anion Gap 11, Blood Urea Nitrogen 29H, Creatinine 1.74H, Estimat Glomerular Filtration Rate 40, BUN/Creatinine Ratio 17, Glucose Level 184H, Lactic Acid Level 1.29, Calcium Level 8.3L, Phosphorus Level 2.9, Magnesium Level 2.0, Troponin I < 0.028, B-Type Natriuretic Peptide 648.5H 12/05/18 10:30: Glucometer 275H Microbiology 12/04/18 Blood Culture - Preliminary, Resulted Strep, Beta Hemolytic Group B 12/04/18 Influenza Types A,B Antigen (TISHA) - Final, Complete 12/04/18 Urine Culture - Final, Complete 3 or more isolates Assessment/Plan Assessment/Plan Assess & Plan/Chief Complaint A 63-year-old male with bilateral lower extremity edema and chronic venous insufficiency as well as cellulitis along the anterior left evans. WBC improving. Continue with Abx and conservative management with Amari wrap and elevation. Clinical Quality Measures DVT/VTE Risk/Contraindication: Risk Factor Score Per Nursin RFS Level Per Nursing on Admit: 4+=Very High JW MOREJON DIETETIC AIDE Dec 05, 2018 11:25
--- NOTE | 2018-12-05 12:47 | Diagnostic Imaging Report ---
INDICATION: Shortness of air. TECHNIQUE: Two view chest 09:38 a.m. CORRELATION STUDY: 12/04/2018. FINDINGS: There is a bibasilar infiltrate or atelectasis, left greater than right along with small effusions. Findings are likely relatively stable given difference in technique. Heart size is enlarged. Vascular is slightly prominent. Accentuated degenerative change about the thoracic spine. IMPRESSION: 1. Bibasilar infiltrates and/or atelectasis along with small effusions, left greater than right, persisting, stable to approximately minimally increased. Vascular also appears to be slightly increased. Dictated by: Dictated on workstation # [id number]
[2018-12-05] MEDS: VANCOMYCIN 1500 MG/NS 500 ML IVPB IV SCH ×2 (15:09)
[2018-12-05] MEDS: CATHETER FLUSH 10 ML SYR IV SCH ×2 (15:10→22:37)
--- NOTE | 2018-12-05 20:00 | NUR ---
THIS NURSE RECEIVED CALL FROM ICU HSPT TUTOR AROUND 194, AND WAS TOLD PTS HEART RATE SUSTAINING AT 140S-160S SINCE THIS MORNING, WITH A NEW CHANGE IN HEART RHYTHM. THIS NURSE ASSESSED PT, PCT OBTAINED PT VITALS. B/P 173/108, TEMP 101.8. PATIENT REPORTS 4/10 CHEST PAIN AT THIS TIME, HE REPORTS IT STARTED AROUND 1700 AFTER HIS SHOWER AND HAS GOTTEN WORSE SINCE. PT APPEARS DIAPHORETIC, BREATHING FAST AND SHALLOW. EKG WAS PERFORMED BY PCT, AFIB NOTED ON EKG. DR. SANTACRUZ CALLED AT 1950 REGARDING PT CONDITION, ORDERED TO TRANSFER PT TO ICU.
[2018-12-05] MEDS ORDERED: NS (IVPB) 100 ML ONE (20:10)
[2018-12-05] MEDS ORDERED: DILTIAZEM 25 MG/5 ML INJ (CARDIZEM) VIAL ONE (20:10)
[2018-12-05] MEDS ORDERED: DILTIAZEM 125 MG/25 ML IV (CARDIZEM) IV ONE (20:11)
[2018-12-05] MEDS: ACETAMINOPHEN 500 MG TAB (TYLENOL) PO PRN (20:29)
[2018-12-05] MEDS ORDERED: DILTIAZEM 25 MG/5 ML INJ (CARDIZEM) VIAL IVP ONE (20:30)
[2018-12-05] MEDS: DILTIAZEM IV FOR DRIP 125 MG in NS (IVPB) 100 ML IV SCH (20:31)
--- NOTE | 2018-12-05 21:44 | NUR ---
Inquired about pt's Drinking history. Pt stated that he drinks 2-3 16o beers a week. He stated "I used to drink that much over 20years ago." Notified [facility] of the patient's new drinking habits, and that patient does not drink 3 gallons of whiskey a month at this time. Addendum: 12/06/18 at 0306 by KIRAN BLACKWOOD RN [facility] called back to report that the doctor approved the AL protocol. No further orders.
[2018-12-05] MEDS ORDERED: D5 1/2 NS W/KCL 20 MEQ/L 1,000 ML IV SCH (22:28)
[2018-12-05] MEDS ORDERED: 1/2 NS IV SOLUTION 1,000 ML IV PRN (22:28)
[2018-12-05] MEDS ORDERED: ONDANSETRON 4 MG/2 ML (SDV) Z0FRAN IV PRN (22:30)
[2018-12-05] MEDS ORDERED: ONDANSETRON 4 MG (ZOFRAN) ORAL DISSOLVE TAB SL PRN (22:30)
[2018-12-05] MEDS ORDERED: LORazepam INJ 2 MG/ML (ATIVAN) VIAL IM/IV PRN (22:30)
[2018-12-05] MEDS ORDERED: D5 1/2 NS 1000 ML IV SOLUTION 1,000 ML IV PRN (22:30)
[2018-12-05] MEDS ORDERED: LORazepam INJ 2 MG/ML (ATIVAN) VIAL IV PRN (22:30)
[2018-12-05] MEDS ORDERED: ANTACID SUSP 30 ML UDC (MYLANTA) PO PRN (22:30)
[2018-12-05] MEDS ORDERED: SENNA W/DOCUSATE (SENOKOT S) TABLET PO PRN (22:30)
[2018-12-05] MEDS ORDERED: LORazepam 1 MG (ATIVAN) TAB PO PRN (22:30)
[2018-12-05] MEDS: SIMvastatin 10 MG (ZOCOR) TAB PO SCH (22:47)
[2018-12-05] MEDS: inSUlin ASPART (NovoLOG) 1 UNIT/0.01 ML (CHARGE PER UNIT) SQ SCH (22:50)
[2018-12-06] VITALS (24 sets, daily range): BP systolic 103–172; BP diastolic 41–113
[2018-12-06] MEDS: PIPERACILLIN/TAZOBACTAM (BULK) 4.5 GM in NS (IVPB) 100 ML IV SCH ×3 (01:03→16:57)
[2018-12-06] MEDS: VANCOMYCIN 1500 MG/NS 500 ML IVPB IV SCH ×2 (01:03)
[2018-12-06] MEDS: inSUlin ASPART (NovoLOG) 1 UNIT/0.01 ML (CHARGE PER UNIT) SQ SCH ×4 (01:20→18:44)
--- NOTE | 2018-12-06 02:16 | NUR ---
1999: Pt arrived at the unit. Temp: 101.6 HR in the 170s-180s. Notified Dr. Gutiérrez that patient was in the unit, Updated with vitals and notified DR. Gutiérrez that patient's temp was 101.6 and pt was still having chest pain and symptomatic. See Order history. 2038: Called EICU to let them know about pt's temperature that was still elevated, HR elevated after Cardizem bolus, pt symptomatic and worried about a new infection forming. Inquired about lactic or troponin could be drawn. EICU stated they would relay that information to the doctor. The EICU RN stated "Have you checked his Blood Sugar? Since he is diaphoretic and symptomatic, that could mean his blood sugar is too low." This RN stated "the last blood glucose check was before his supper and it was 260." EICU RN stated "Well check his blood sugar levels to see if anything has changed. And I will forward this information to the MD." This RN stated understanding.
[2018-12-06] MEDS: RT-ALBUTEROL/IPRATROPIUM 3 ML (DUONEB) VIAL INH SCH ×3 (03:21→20:37)
[2018-12-06 03:28] LABS: BASOPHILS % (AUTO) 0 % (0-10); EOSINOPHILS # (AUTO) 0.3 10^3/uL (0.0-0.3); EOSINOPHILS % (AUTO) 3 % (0-10); HEMATOCRIT 33 % (40-54); HEMOGLOBIN 10.6 G/DL (13.3-17.7); LYMPHOCYTES # (AUTO) 1.6 X 10^3 (1.0-4.0); LYMPHOCYTES % (AUTO) 17 % (12-44); MEAN CORPUSCULAR HEMOGLOBIN 30 PG (25-34); MEAN CORPUSCULAR HGB CONC 32 G/DL (32-36); MEAN CORPUSCULAR VOLUME 93 FL (80-99); MEAN PLATELET VOLUME 9.8 FL (7.4-10.4); MONOCYTES # (AUTO) 1.4 X 10^3 (0.0-1.0); MONOCYTES % (AUTO) 15 % (0-12); NEUTROPHILS # (AUTO) 5.9 X 10^3 (1.8-7.8); NEUTROPHILS % (AUTO) 65 % (42-75); PLATELET COUNT 173 10^3/uL (130-400); RED CELL DISTRIBUTION WIDTH 14.3 % (10.0-14.5); WHITE BLOOD COUNT 9.2 10^3/uL (4.3-11.0)
[2018-12-06 03:54] LABS: CALCIUM 8.3 MG/DL (8.5-10.1); CREATININE SERUM 1.78 MG/DL (0.60-1.30); MAGNESIUM 2.2 MG/DL (1.6-2.4); PHOSPHORUS 3.4 MG/DL (2.3-4.7); POTASSIUM 4.1 MMOL/L (3.6-5.0)
--- NOTE | 2018-12-06 05:17 | Pulmonary Progress Note ---
Subjective Time Seen by a Provider: 07:13 Subjective/Events-last exam Pt transferred to ICU secondary to Afib RVR last night. Sepsis Event Evaluation Height, Weight, BMI Height: 5'11" Weight: 260lbs. 0.0oz. 117.782763td; 48.32 BMI Method:Stated Focused Exam Lactate Level 12/04/18 01:12: Lactic Acid Level 1.46 12/05/18 07:45: Lactic Acid Level 1.29 12/06/18 03:10: Lactic Acid Level 0.69 Time of Focused Exam: 02:30 Lactic Acid Level Laboratory Tests Test 12/06/18 03:10 Lactic Acid Level 0.69 MMOL/L (0.50-2.00) Exam Exam Vital Signs Date Time Temp Pulse Resp B/P (MAP) Pulse Ox O2 Delivery O2 Flow Rate FiO2 12/06/18 05:00 76 16 153/83 (106) 96 Nasal Cannula 3.00 12/06/18 04:21 36.0 12/06/18 04:00 88 22 139/79 (99) 90 Nasal Cannula 3.00 12/06/18 03:00 76 24 103/61 (75) 98 Nasal Cannula 3.00 12/06/18 02:00 80 27 113/61 (78) 94 Nasal Cannula 3.00 12/06/18 01:00 87 12/06/18 01:00 87 24 135/86 (102) 95 Nasal Cannula 3.00 12/06/18 00:00 87 25 111/68 (82) 95 Nasal Cannula 3.00 12/06/18 00:00 Nasal Cannula 3.00 12/05/18 23:00 95 23 116/54 (74) 93 Nasal Cannula 3.00 12/05/18 22:00 128 13 177/87 (117) 94 Nasal Cannula 3.00 12/05/18 21:04 130 25 126/75 (92) 95 Nasal Cannula 3.00 12/05/18 20:31 38.80053 154 18 130/117 94 Nasal Cannula 3.00 12/05/18 20:29 38.6 12/05/18 20:10 38.6 154 18 130/117 (121) 94 Nasal Cannula 3.00 12/05/18 20:06 160 12/05/18 20:00 38.8 134 22 173/108 (129) 96 Nasal Cannula 3.00 12/05/18 19:40 Nasal Cannula 3.00 12/05/18 19:16 94 Nasal Cannula 3.00 12/05/18 19:00 142 12/05/18 16:00 37.2 116 20 174/85 (114) 98 Nasal Cannula 3.00 12/05/18 15:02 97 Nasal Cannula 5.00 12/05/18 12:25 146 12/05/18 12:00 36.6 125 22 108/77 (87) 99 Nasal Cannula 4.00 12/05/18 09:23 95 Nasal Cannula 5.00 12/05/18 09:15 37.2 12/05/18 09:15 37.2 12/05/18 08:00 37.2 148 24 174/94 (120) 94 Nasal Cannula 4.00 12/05/18 08:00 Nasal Cannula 4.00 12/05/18 07:00 135 12/05/18 05:20 93 Nasal Cannula 4.50 I & O 12/06/18 07:00 Intake Total 4360 ml Output Total 2125 ml Balance 2235 ml Height & Weight Height: 5'11" Weight: 260lbs. 0.0oz. 117.944634bb; 48.32 BMI Method:Stated General Appearance: WD/WN, Anxious, Chronically ill, Mild Distress, Obese HEENT: PERRL/EOMI, TMs Normal, Normal ENT Inspection, Pharynx Normal, Moist Mucous Membranes Neck: Full Range of Motion, Normal Inspection, Non Tender, Supple, Carotid Bruit Respiratory: Chest Non Tender, Crackles, Decreased Breath Sounds Cardiovascular: Regular Rate, Rhythm, No Edema, No Gallop, No JVD, No Murmur, Normal Peripheral Pulses Capillary Refill: Less Than 3 Seconds Gastrointestinal: normal bowel sounds, non tender, soft Extremity: Normal Capillary Refill, Normal Range of Motion, Pedal Edema, Swelling Neurologic/Psychiatric: Alert, Oriented x3, No Motor/Sensory Deficits, Normal Mood/Affect Skin: Warm/Dry, Other (mild redness of the left lower extremity.) Lymphatic: No Adenopathy Results Lab Laboratory Tests 12/05/18 04:30 12/05/18 07:45 12/06/18 03:10 Assessment/Plan Assessment/Plan Pneumonia with sepsis -Rojas culture -Abx - Vanco/Zosyn Afib RVR -Cardiology following -cardizem gtt LLL cellulitis - IDDM Chronic anemia DEJA SMITH DO Dec 06, 2018 05:17
[2018-12-06] MEDS: CATHETER FLUSH 10 ML SYR IV SCH ×3 (06:00→22:21)
[2018-12-06] MEDS ORDERED: THIAMINE 100 MG (VITAMIN B-1) TAB PO SCH (07:00)
[2018-12-06] MEDS ORDERED: MULTIVIT W/MINERALS TAB (THERAGRAN M) PO SCH (07:00)
--- NOTE | 2018-12-06 08:09 | Diagnostic Imaging Report ---
INDICATION: Sepsis, atrial fibrillation. FINDINGS: Heart is enlarged. There is questionable developing infiltrate in the left lung base. The right lung clear. IMPRESSION: Cardiomegaly with suspicion for infiltrate versus atelectasis developing in the left lung base. Dictated by: Dictated on workstation # [id number]
[2018-12-06] MEDS: DILTIAZEM IV FOR DRIP 125 MG in NS (IVPB) 100 ML IV SCH ×2 (08:37→22:48)
--- NOTE | 2018-12-06 08:51 | Cardiology Progress Note ---
Subjective Date Seen by Provider: Dec 06, 2018 Time Seen by Provider: 08:48 Subjective/Events-last exam Patient is laying down in bed, had new-onset atrial fibrillation yesterday and I transferred him to ICU. Heart rate is still borderline tachycardic, having shortness of breath and cough Review of Systems General: No Chills, No Night Sweats; Fatigue; No Malaise, No Appetite, No Other HEENT: No Head Aches, No Visual Changes, No Eye Pain, No Ear Pain, No Dysphasia , No Sinus Congestion, No Post Nasal Drip, No Sore Throat, No Other Pulmonary: Dyspnea, Cough; No Pleuritic Chest Pain, No Other Cardiovascular: Edema; No: Chest Pain, Palpitations, Orthopnea, Paroxysmal Noc. Dyspnea, Lt Headedness, Other Focused Exam Lactate Level 12/04/18 01:12: Lactic Acid Level 1.46 12/05/18 07:45: Lactic Acid Level 1.29 12/06/18 03:10: Lactic Acid Level 0.69 Time of Focused Exam: 02:30 Objective-Cardiology Exam Last Set of Vital Signs Vital Signs 12/06/18 12/06/18 12/06/18 12/06/18 06:45 07:00 07:55 08:37 Temp 37.1 Pulse 103 Resp 33 B/P (MAP) 145/86 Pulse Ox 96 O2 Delivery Nasal Cannula O2 Flow Rate 3.00 Capillary Refill : Less Than 3 Seconds I&O Intake and Output 12/06/18 00:00 Intake Total 4960 ml Output Total 3725 ml Balance 1235 ml Intake Oral 2700 ml IV Total 2260 ml Output Urine Total 3725 ml # Bowel Movements 1 General: Alert, Oriented X3, Cooperative HEENT: Atraumatic, PERRLA Neck: Supple, No JVD, No Thyromegaly Lungs: Normal Air Movement, Other (bilateral rhonchi) Heart: Normal S1, Normal S2, No Murmurs, Other (atrial fibrillation) Abdomen: Normal Bowel Sounds, Soft, No Tenderness, No Hepatosplenomegaly, No Masses Extremities: No Clubbing, No Cyanosis, Normal Pulses, Other (peripheral edema) Skin: No Rashes, No Breakdown, Other (and cellulitis) Neuro: Normal Speech, Normal Tone, Sensation Intact Psych/Mental Status: Mental Status NL, Mood NL Results Lab Laboratory Tests 12/06/18 03:10 A/P-Cardiology Admission Diagnosis Pneumonia Sepsis Coronary artery disease Hypertension Assessment/Plan Pneumonia with sepsis, receiving antibiotics, managed by primary care team Cellulitis, managed by primary care team receiving antibiotics New-onset atrial fibrillation, tachycardia, started on Cardizem drip, continue on Lovenox and will initiate amiodarone and evaluate tolerance and response Morbid obesity, obesity hypoventilation syndrome and acute respiratory failure. Managed by Dr. Contreras Peripheral edema, chronic, last workup was done in 2014, I'll repeat 2-D echocardiogram Coronary artery disease, history of cardiac catheterization done in 2014 showing coronary ectasia with slow flow, no significant obstructive disease. Conservative management Hypertension, monitor blood pressure while on Cardizem Hyperlipidemia, monitor lipids Diabetes mellitus, followed and managed by primary care physician Clinical Quality Measures DVT/VTE Risk/Contraindication: Risk Factor Score Per Nursin RFS Level Per Nursing on Admit: 4+=Very High AMI SANTACRUZ MD Dec 06, 2018 08:51
[2018-12-06] MEDS ORDERED: AMIODARONE FOR BOLUS 150 MG in D5W 100 ML IVPB 100 ML IV NR (09:00)
[2018-12-06] MEDS ORDERED: THIAMINE INJECTION 100 MG, FOLIC ACID INJECTION 1 MG, MAGNESIUM SULFATE 2 GM, VITAMIN M... IV SCH ×5 (09:00)
[2018-12-06] MEDS ORDERED: FOLIC ACID 1 MG TAB PO SCH (09:00)
[2018-12-06] MEDS: OMEGA 3 (FISH OIL) 1000 MG CAP PO SCH ×2 (09:28→20:06)
[2018-12-06] MEDS: metFORMIN 500 MG (GLUCOPHAGE) TAB PO SCH ×2 (09:28→18:43)
[2018-12-06] MEDS: meTOproloL SUCCINATE 50 MG (TOPROL XL) TAB PO SCH (09:28)
[2018-12-06] MEDS: ASPIRIN 81 MG CHEW (CHILDREN'S ASA) PO SCH (09:28)
[2018-12-06] MEDS: ETODOLAC 300 MG (LODINE) CAP PO SCH ×2 (09:39→20:07)
[2018-12-06] MEDS: AMIODARONE INJECTION 450 MG in D5W IV SOLUTION (EXCEL) 250 ML IV SCH ×2 (09:46→18:51)
--- NOTE | 2018-12-06 10:01 | Progress Note - Hospitalist ---
Subjective HPI/CC On Admission Date Seen by Provider: Dec 06, 2018 Time Seen by Provider: 09:00 Chief complaint: Left leg cellulitis with pneumonia History of present illness: This is a 63-year-old white male chronically debilitated who presented to the ER with left leg cellulitis along with pneumonia and sepsis. He has a long-standing history of insulin-dependent diabetes along with CAD and patient was found to be in need of aggressive medical treatment supportive care to prevent decompensation. Dr. Florez has been consulted for the cellulitis. He has been placed on empiric antibiotics for the pneumonia and cellulitis. We'll restart home medications once reconciled. Subjective/Events-last exam Pt required transfer to the ICU due to AF with RVR This transfer occurred about 430 am Reports feeling a little bit better but heart rate is still 120 Tolerating antibiotics Monitoring closely Focused Exam Lactate Level 12/04/18 01:12: Lactic Acid Level 1.46 12/05/18 07:45: Lactic Acid Level 1.29 12/06/18 03:10: Lactic Acid Level 0.69 Time of Focused Exam: 02:30 Objective Exam Vital Signs Vital Signs Date Time Temp Pulse Resp B/P (MAP) Pulse Ox O2 Delivery O2 Flow Rate FiO2 12/06/18 19:00 36.7 113 18 172/95 (120) 93 Nasal Cannula 3.00 Capillary Refill : Less Than 3 Seconds General Appearance: No Apparent Distress, WD/WN, Chronically ill, Obese Respiratory: No Accessory Muscle Use, No Respiratory Distress, Crackles, Decreased Breath Sounds Cardiovascular: No Edema, No Gallop, No JVD, No Murmur, Normal Peripheral Pulses, Irregularly Irregular, Tachycardia Extremity: Pedal Edema (left leg) Neurologic/Psychiatric: Alert, Oriented x3, No Motor/Sensory Deficits, Normal Mood/Affect Results/Procedures Lab Laboratory Tests 12/06/18 03:10 Patient resulted labs reviewed. Assessment/Plan Assessment and Plan Assess & Plan/Chief Complaint Assessment: AF w/RVR new onset Cardiology managing Left leg cellulitis Pneumonia CAD Diabetes mellitus insulin-dependent Morbid obesity BMI 48 Sepsis Panic attack? Plan: Home meds Dr. Gutiérrez consultation and Dr. Contreras consultation was appreciated along with Dr. Florez Monitor closely OAC Rate control Diagnosis/Problems Diagnosis/Problems (1) Atrial fibrillation with rapid ventricular response Status: Acute (2) Sepsis Status: Acute Qualifiers: Sepsis type: sepsis due to unspecified organism Sepsis acute organ dysfunction status: without acute organ dysfunction Qualified Codes: A41.9 - Sepsis, unspecified organism (3) Cellulitis of left lower leg Status: Acute (4) Pneumonia Status: Acute Qualifiers: Pneumonia type: due to unspecified organism Laterality: unspecified laterality Lung location: unspecified part of lung Qualified Codes: J18.9 - Pneumonia, unspecified organism (5) HTN (hypertension) Status: Acute Qualifiers: Hypertension type: essential hypertension Qualified Codes: I10 - Essential (primary) hypertension (6) Chronic renal failure Status: Chronic Qualifiers: Chronic kidney disease stage: stage 3 (moderate) Qualified Codes: N18.3 - Chronic kidney disease, stage 3 (moderate) (7) IDDM (insulin dependent diabetes mellitus) Status: Chronic (8) Hypoxia Status: Acute Clinical Quality Measures DVT/VTE Risk/Contraindication: Risk Factor Score Per Nursin RFS Level Per Nursing on Admit: 4+=Very High YARIEL BUI DO Dec 06, 2018 10:01
[2018-12-06] MEDS: ENOXAPARIN 300 MG/3 ML (LOVENOX) MULTI-DOSE VIAL SQ SCH ×2 (10:42→22:25)
[2018-12-06] MEDS ORDERED: ASPI-983 PO (10:49)
[2018-12-06] MEDS ORDERED: ATOR80TA76 PO (10:49)
--- NOTE | 2018-12-06 10:51 | NUR ---
SPOKE WITH THE PATIENT ABOUT HIS MEDICATIONS. I CALLED [facility] FOR A LIST OF RECENTLY FILLED MEDS AND WENT OVER IT WITH THE PATIENT. [facility] FILLED: 11-10-18 METFORMIN 1000MG BID #180 11-10-18 METOPROLOL ER 50MG DAILY #30 11-10-18 INVOKANA 100MG DAILY #30 11-08-18 DICLOFENAC ER 75MG BID #60 11-01-18 LIPITOR 80MG DAILY #30 PALS: 05-19-18 VICOTZA #4 (REPORTS HE USES 1.8 AT BEDTIME) 05-19-18 NOVOLOG PEN #15 (REPORTS HE USES 60 UNITS ONCE DAILY AT NOON) 05-19-18 LEVEMIR FLEXTOUCH#12 (REPORTS HE USES 80 UNITS BID) (PHARMACY WAS NOT SURE IF THIS WAS # OF PENS OR BOXES BUT ASSUMED # OF BOXES- THEY CAN NOT SEE DIRECTIONS EITHER) OTC MEDS: ASPIRIN 81MG DAILY FISH OIL 2 DAILY VITAMIN PACK DAILY
--- NOTE | 2018-12-06 11:35 | NUR ---
Pastoral care visit.
[2018-12-06] MEDS ORDERED: TROUGH ORDER-PHARMACY XX NR (13:00)
[2018-12-06] MEDS: SIMvastatin 10 MG (ZOCOR) TAB PO SCH (20:07)
[2018-12-06] MEDS ORDERED: DILTIAZEM 125 MG/25 ML IV (CARDIZEM) IV ONE (22:36)
[2018-12-06] MEDS ORDERED: NS (IVPB) 100 ML ONE (22:36)
[2018-12-07] VITALS (22 sets, daily range): BP systolic 122–159; BP diastolic 69–102
[2018-12-07] MEDS: inSUlin ASPART (NovoLOG) 1 UNIT/0.01 ML (CHARGE PER UNIT) SQ SCH ×5 (00:33→23:10)
[2018-12-07] MEDS: PIPERACILLIN/TAZOBACTAM (BULK) 4.5 GM in NS (IVPB) 100 ML IV SCH ×3 (00:33→16:42)
[2018-12-07] MEDS: RT-ALBUTEROL/IPRATROPIUM 3 ML (DUONEB) VIAL INH SCH ×5 (03:16→22:23)
[2018-12-07 03:50] LABS: BASOPHILS % (AUTO) 0 % (0-10); EOSINOPHILS # (AUTO) 0.5 10^3/uL (0.0-0.3); EOSINOPHILS % (AUTO) 5 % (0-10); HEMATOCRIT 34 % (40-54); HEMOGLOBIN 10.6 G/DL (13.3-17.7); LYMPHOCYTES # (AUTO) 1.8 X 10^3 (1.0-4.0); LYMPHOCYTES % (AUTO) 20 % (12-44); MEAN CORPUSCULAR HEMOGLOBIN 29 PG (25-34); MEAN CORPUSCULAR HGB CONC 32 G/DL (32-36); MEAN CORPUSCULAR VOLUME 93 FL (80-99); MONOCYTES # (AUTO) 1.3 X 10^3 (0.0-1.0); MONOCYTES % (AUTO) 14 % (0-12); NEUTROPHILS # (AUTO) 5.5 X 10^3 (1.8-7.8); NEUTROPHILS % (AUTO) 60 % (42-75); PLATELET COUNT 205 10^3/uL (130-400); RED CELL DISTRIBUTION WIDTH 14.1 % (10.0-14.5); WHITE BLOOD COUNT 9.1 10^3/uL (4.3-11.0)
[2018-12-07 04:00] LABS: CALCIUM 8.9 MG/DL (8.5-10.1); CREATININE SERUM 1.74 MG/DL (0.60-1.30); MAGNESIUM 2.3 MG/DL (1.6-2.4); PHOSPHORUS 3.2 MG/DL (2.3-4.7); POTASSIUM 4.4 MMOL/L (3.6-5.0)
[2018-12-07] MEDS: KCL 20 MEQ TAB (K-DUR) PO SCH (04:29)
[2018-12-07] MEDS: POTASSIUM CL 10MEQ/50ML IVPB 50 ML IV SCH (04:29)
[2018-12-07] MEDS: MAGNESIUM 1 GM/100 ML IVPB 100 ML IV SCH (04:29)
[2018-12-07] MEDS: CATHETER FLUSH 10 ML SYR IV SCH ×3 (04:47→21:08)
--- NOTE | 2018-12-07 05:32 | Pulmonary Progress Note ---
Subjective Time Seen by a Provider: 09:16 Subjective/Events-last exam Pt appears to be doing better. Sepsis Event Evaluation Height, Weight, BMI Height: 5'11" Weight: 260lbs. 0.0oz. 117.006320gb; 48.32 BMI Method:Stated Focused Exam Lactate Level 12/05/18 07:45: Lactic Acid Level 1.29 12/06/18 03:10: Lactic Acid Level 0.69 Time of Focused Exam: 02:30 Exam Exam Vital Signs Date Time Temp Pulse Resp B/P (MAP) Pulse Ox O2 Delivery O2 Flow Rate FiO2 12/07/18 05:00 75 136/102 (113) 95 Nasal Cannula 3.00 12/07/18 04:00 78 128/83 (98) 98 Nasal Cannula 3.00 12/07/18 04:00 36.3 12/07/18 03:39 Nasal Cannula 3.00 12/07/18 03:16 96 Nasal Cannula 3.00 12/07/18 03:00 73 122/78 (93) 97 Nasal Cannula 3.00 12/07/18 02:00 83 125/79 (94) 96 Nasal Cannula 3.00 12/07/18 01:00 91 135/77 (96) 94 Nasal Cannula 3.00 12/07/18 01:00 91 12/07/18 00:10 103 153/78 (103) 94 Nasal Cannula 3.00 12/07/18 00:00 Nasal Cannula 3.00 12/07/18 00:00 35.7 12/06/18 23:10 90 158/78 (104) 95 Nasal Cannula 3.00 12/06/18 22:48 141/96 12/06/18 22:10 88 141/75 (97) 96 Nasal Cannula 3.00 12/06/18 21:25 92 150/85 (106) 93 Nasal Cannula 3.00 12/06/18 20:37 94 Nasal Cannula 3.00 12/06/18 20:10 105 139/95 (110) 93 Nasal Cannula 3.00 12/06/18 20:00 Nasal Cannula 3.00 12/06/18 19:00 121 12/06/18 19:00 36.7 113 18 172/95 (120) 93 Nasal Cannula 3.00 12/06/18 17:00 105 40 128/113 (118) 91 Nasal Cannula 3.00 12/06/18 16:00 106 29 149/80 (103) 90 Nasal Cannula 3.00 12/06/18 15:00 102 147/87 (107) 94 Nasal Cannula 3.00 12/06/18 14:00 98 36 146/70 (95) 95 Nasal Cannula 3.00 12/06/18 13:00 101 32 135/74 (94) 95 Nasal Cannula 3.00 12/06/18 13:00 94 12/06/18 12:00 97 32 118/66 (83) 94 Nasal Cannula 3.00 12/06/18 11:00 111 12 126/80 (95) 95 Nasal Cannula 3.00 12/06/18 10:00 112 9 146/95 (112) 96 Nasal Cannula 3.00 12/06/18 10:00 95 Nasal Cannula 3.00 12/06/18 09:00 121 14 145/83 (103) 94 Nasal Cannula 3.00 12/06/18 08:37 103 145/86 12/06/18 08:00 120 40 134/41 (72) 95 Nasal Cannula 3.00 12/06/18 07:55 Nasal Cannula 3.00 12/06/18 07:00 37.1 12/06/18 07:00 80 12/06/18 07:00 93 29 148/73 (98) 94 Nasal Cannula 3.00 12/06/18 06:45 96 33 134/79 (97) 96 Nasal Cannula 3.00 12/06/18 06:00 86 28 143/101 (115) 93 Nasal Cannula 3.00 I & O 12/07/18 07:00 Intake Total 2327 ml Output Total 2350 ml Balance -23 ml Height & Weight Height: 5'11" Weight: 260lbs. 0.0oz. 117.242912or; 48.32 BMI Method:Stated General Appearance: No Apparent Distress, WD/WN, Chronically ill, Obese HEENT: PERRL/EOMI, TMs Normal, Normal ENT Inspection, Pharynx Normal, Moist Mucous Membranes Neck: Full Range of Motion, Normal Inspection, Non Tender Respiratory: No Accessory Muscle Use, No Respiratory Distress, Crackles, Decreased Breath Sounds Cardiovascular: No Edema, No Gallop, No JVD, No Murmur, Normal Peripheral Pulses, Irregularly Irregular, Tachycardia Capillary Refill: Less Than 3 Seconds Gastrointestinal: normal bowel sounds, non tender, soft Extremity: Pedal Edema (left leg) Neurologic/Psychiatric: Alert, Oriented x3, No Motor/Sensory Deficits, Normal Mood/Affect Skin: Normal Color, Warm/Dry, Other (left leg in evelina wrap) Lymphatic: No Adenopathy Results Lab Laboratory Tests 12/05/18 07:45 12/06/18 03:10 12/07/18 03:35 Assessment/Plan Assessment/Plan Pneumonia with sepsis -Rojas culture -Abx - Vanco/Zosyn Afib RVR -Cardiology following -cardizem gtt LLL cellulitis - IDDM Chronic anemia DEJA SMITH DO Dec 07, 2018 05:32
[2018-12-07] MEDS: NS IV 1000 ML 1,000 ML IV SCH ×2 (06:38→16:42)
--- NOTE | 2018-12-07 07:40 | Cardiology Progress Note ---
Subjective Date Seen by Provider: Dec 07, 2018 Time Seen by Provider: 07:38 Subjective/Events-last exam Patient is sitting in a chair, feeling better, still in atrial fibrillation with controlled rate. Still short of breath Review of Systems General: No Chills, No Night Sweats; Fatigue, Malaise; No Appetite, No Other HEENT: No Head Aches, No Visual Changes, No Eye Pain, No Ear Pain, No Dysphasia, No Sinus Congestion, No Post Nasal Drip, No Sore Throat, No Other Pulmonary: Dyspnea, Cough; No Pleuritic Chest Pain, No Other Cardiovascular: Edema; No: Chest Pain, Palpitations, Orthopnea, Paroxysmal Noc. Dyspnea, Lt Headedness, Other Focused Exam Lactate Level 12/05/18 07:45: Lactic Acid Level 1.29 12/06/18 03:10: Lactic Acid Level 0.69 Time of Focused Exam: 02:30 Objective-Cardiology Exam Last Set of Vital Signs Vital Signs 12/06/18 12/07/18 12/07/18 12/07/18 19:00 06:00 06:45 07:35 Temp 37.5 Pulse 89 Resp 18 B/P (MAP) 139/90 (106) Pulse Ox 97 O2 Delivery Nasal Cannula O2 Flow Rate 3.00 Capillary Refill : Less Than 3 Seconds I&O Intake and Output 12/07/18 00:00 Intake Total 3012 ml Output Total 2050 ml Balance 962 ml Intake Oral 1290 ml IV Total 1722 ml Output Urine Total 2050 ml General: Alert, Oriented X3, Cooperative HEENT: Atraumatic, PERRLA Neck: Supple, No JVD, No Thyromegaly Lungs: Normal Air Movement, Other (bilateral rhonchi) Heart: Normal S1, Normal S2, No Murmurs, Other (atrial fibrillation) Abdomen: Normal Bowel Sounds, Soft, No Tenderness, No Hepatosplenomegaly, No Masses Extremities: No Clubbing, No Cyanosis, Normal Pulses, Other (peripheral edema) Skin: No Rashes, No Breakdown, Other (and cellulitis) Neuro: Normal Speech, Normal Tone, Sensation Intact Psych/Mental Status: Mental Status NL, Mood NL Results Lab Laboratory Tests 12/07/18 03:35 A/P-Cardiology Admission Diagnosis Pneumonia Sepsis Coronary artery disease Hypertension Assessment/Plan Pneumonia with sepsis, receiving antibiotics, managed by primary care team Cellulitis, managed by primary care team receiving antibiotics New-onset atrial fibrillation, tachycardia, currently on Cardizem and amiodarone in addition to Lovenox. Continue on current medication, planning to do TYSON with electrical cardioversion when his respiratory status is more stable. Morbid obesity, obesity hypoventilation syndrome and acute respiratory failure. Managed by Dr. Contreras Peripheral edema, chronic, echocardiogram showed normal left ventricular size and function with ejection fraction 55-60 percent, left atrial dilatation measuring 6.1 cm, mild mitral regurgitation, pulmonary hypertension with PA pressure 40-50 mmHg. Continue to monitor Coronary artery disease, history of cardiac catheterization done in 2014 showing coronary ectasia with slow flow, no significant obstructive disease. Conservative management Hypertension, monitor blood pressure while on Cardizem Hyperlipidemia, monitor lipids Diabetes mellitus, followed and managed by primary care physician Clinical Quality Measures DVT/VTE Risk/Contraindication: Risk Factor Score Per Nursin RFS Level Per Nursing on Admit: 4+=Very High AMI SANTACRUZ MD Dec 07, 2018 07:40
[2018-12-07] MEDS: meTOproloL SUCCINATE 50 MG (TOPROL XL) TAB PO SCH (08:07)
[2018-12-07] MEDS: OMEGA 3 (FISH OIL) 1000 MG CAP PO SCH ×2 (08:07→21:03)
[2018-12-07] MEDS: ASPIRIN 81 MG CHEW (CHILDREN'S ASA) PO SCH (08:07)
[2018-12-07] MEDS: metFORMIN 500 MG (GLUCOPHAGE) TAB PO SCH ×2 (08:07→16:49)
[2018-12-07] MEDS: AMIODARONE 200 MG (CORDARONE) TAB PO SCH ×2 (08:07→21:04)
[2018-12-07] MEDS: ETODOLAC 300 MG (LODINE) CAP PO SCH ×2 (08:07→21:07)
[2018-12-07] MEDS: ENOXAPARIN 300 MG/3 ML (LOVENOX) MULTI-DOSE VIAL SQ SCH ×2 (08:07→21:08)
--- NOTE | 2018-12-07 09:04 | Diagnostic Imaging Report ---
INDICATION: Sepsis. Comparison made with prior examination 12/06/2018. FINDINGS: There is cardiomegaly. There is mild venous congestion. There is no pleural effusion or pneumothorax. Mediastinum is unremarkable. IMPRESSION: Cardiomegaly and mild central pulmonary venous congestion. Dictated by: Dictated on workstation # [id number]
--- NOTE | 2018-12-07 09:59 | Progress Note - Hospitalist ---
Subjective HPI/CC On Admission Date Seen by Provider: Dec 07, 2018 Time Seen by Provider: 09:00 Chief complaint: Left leg cellulitis with pneumonia History of present illness: This is a 63-year-old white male chronically debilitated who presented to the ER with left leg cellulitis along with pneumonia and sepsis. He has a long-standing history of insulin-dependent diabetes along with CAD and patient was found to be in need of aggressive medical treatment supportive care to prevent decompensation. Dr. Florez has been consulted for the cellulitis. He has been placed on empiric antibiotics for the pneumonia and cellulitis. We'll restart home medications once reconciled. Subjective/Events-last exam Pt sleeping in the chair soundly. Atrial fibrillation remains but rate controlled of 84. Will monitor closely due to the significant comorbidities. No pain is reported. Conferred with the RN. Review of Systems General: Fatigue Pulmonary: Dyspnea Focused Exam Lactate Level 12/05/18 07:45: Lactic Acid Level 1.29 12/06/18 03:10: Lactic Acid Level 0.69 Time of Focused Exam: 02:30 Objective Exam Vital Signs Vital Signs Date Time Temp Pulse Resp B/P (MAP) Pulse Ox O2 Delivery O2 Flow Rate FiO2 12/07/18 20:02 36.8 70 24 155/75 (101) 96 Nasal Cannula 3.00 12/07/18 15:34 32 Capillary Refill : Less Than 3 Seconds General Appearance: No Apparent Distress, WD/WN, Chronically ill, Obese Respiratory: Chest Non Tender, Lungs Clear, Normal Breath Sounds, No Accessory Muscle Use, No Respiratory Distress Cardiovascular: No Edema, No Gallop, No JVD, No Murmur, Normal Peripheral Pulses, Irregularly Irregular Results/Procedures Lab Laboratory Tests 12/07/18 03:35 Patient resulted labs reviewed. Assessment/Plan Assessment and Plan Assess & Plan/Chief Complaint Assessment: AF w/RVR new onset Cardiology managing Left leg cellulitis Pneumonia CAD Diabetes mellitus insulin-dependent Morbid obesity BMI 48 Sepsis Panic attack? Plan: Home meds Dr. Gutiérrez consultation and Dr. Contreras consultation was appreciated along with Dr. Florez Monitor closely OAC Rate control Diagnosis/Problems Diagnosis/Problems (1) Atrial fibrillation with rapid ventricular response Status: Acute (2) Sepsis Status: Acute Qualifiers: Sepsis type: sepsis due to unspecified organism Sepsis acute organ dysfunction status: without acute organ dysfunction Qualified Codes: A41.9 - Sepsis, unspecified organism (3) Cellulitis of left lower leg Status: Acute (4) Pneumonia Status: Acute Qualifiers: Pneumonia type: due to unspecified organism Laterality: unspecified laterality Lung location: unspecified part of lung Qualified Codes: J18.9 - Pneumonia, unspecified organism (5) HTN (hypertension) Status: Acute Qualifiers: Hypertension type: essential hypertension Qualified Codes: I10 - Essential (primary) hypertension (6) Chronic renal failure Status: Chronic Qualifiers: Chronic kidney disease stage: stage 3 (moderate) Qualified Codes: N18.3 - Chronic kidney disease, stage 3 (moderate) (7) IDDM (insulin dependent diabetes mellitus) Status: Chronic (8) Hypoxia Status: Acute Clinical Quality Measures DVT/VTE Risk/Contraindication: Risk Factor Score Per Nursin RFS Level Per Nursing on Admit: 4+=Very High YARIEL BUI DO Dec 07, 2018 09:59
--- NOTE | 2018-12-07 12:03 | Diagnostic Imaging Report ---
PROCEDURE: US Venous Lower Ext Aashish. TECHNIQUE: Multiple real-time grayscale images were obtained over the lower extremities in various projections, bilaterally. Additional duplex Doppler and color Doppler images were also obtained. INDICATION: Bilateral lower extremity edema. There is no evidence of right or left lower extremity DVT. Both lower extremity deep venous systems demonstrate normal compressibility with normal response to augmentation and Valsalva. No fluid collection or mass is seen. IMPRESSION: No evidence of right or left lower extremity DVT. Dictated by: Dictated on workstation # [id number]
[2018-12-07] MEDS: DILTIAZEM 60 MG (CARDIZEM) TAB PO SCH ×2 (13:03→16:49)
--- NOTE | 2018-12-07 17:40 | NUR ---
Pt to room 423. Report received from KORY Sin.
[2018-12-07] MEDS: SIMvastatin 10 MG (ZOCOR) TAB PO SCH (21:04)
[2018-12-08] MEDS: DILTIAZEM 60 MG (CARDIZEM) TAB PO SCH ×5 (00:18→23:59)
[2018-12-08] MEDS: PIPERACILLIN/TAZOBACTAM (BULK) 4.5 GM in NS (IVPB) 100 ML IV SCH ×4 (00:20→23:59)
[2018-12-08] MEDS: NS IV 1000 ML 1,000 ML IV SCH ×2 (01:04→09:11)
[2018-12-08] MEDS: RT-ALBUTEROL/IPRATROPIUM 3 ML (DUONEB) VIAL INH SCH ×6 (01:54→22:26)
[2018-12-08 04:15] VITALS: BP 145/77
[2018-12-08] MEDS: CATHETER FLUSH 10 ML SYR IV SCH ×3 (06:26→22:00)
[2018-12-08] MEDS: metFORMIN 500 MG (GLUCOPHAGE) TAB PO SCH (06:34)
[2018-12-08] MEDS: inSUlin ASPART (NovoLOG) 1 UNIT/0.01 ML (CHARGE PER UNIT) SQ SCH ×4 (06:35→22:30)
[2018-12-08 06:53] LABS: BASOPHILS # (AUTO) 0.1 10^3/uL (0.0-0.1); BASOPHILS % (AUTO) 1 % (0-10); EOSINOPHILS # (AUTO) 0.6 10^3/uL (0.0-0.3); EOSINOPHILS % (AUTO) 7 % (0-10); HEMATOCRIT 30 % (40-54); HEMOGLOBIN 9.7 G/DL (13.3-17.7); LYMPHOCYTES # (AUTO) 1.4 X 10^3 (1.0-4.0); LYMPHOCYTES % (AUTO) 17 % (12-44); MEAN CORPUSCULAR HEMOGLOBIN 30 PG (25-34); MEAN CORPUSCULAR HGB CONC 32 G/DL (32-36); MEAN CORPUSCULAR VOLUME 94 FL (80-99); MEAN PLATELET VOLUME 10.5 FL (7.4-10.4); MONOCYTES # (AUTO) 1.1 X 10^3 (0.0-1.0); MONOCYTES % (AUTO) 14 % (0-12); NEUTROPHILS # (AUTO) 4.8 X 10^3 (1.8-7.8); NEUTROPHILS % (AUTO) 61 % (42-75); PLATELET COUNT 200 10^3/uL (130-400); RED CELL DISTRIBUTION WIDTH 14.1 % (10.0-14.5); WHITE BLOOD COUNT 7.8 10^3/uL (4.3-11.0)
[2018-12-08 07:18] LABS: CALCIUM 8.4 MG/DL (8.5-10.1); CREATININE SERUM 1.94 MG/DL (0.60-1.30); MAGNESIUM 2.3 MG/DL (1.6-2.4); PHOSPHORUS 4.1 MG/DL (2.3-4.7); POTASSIUM 4.4 MMOL/L (3.6-5.0)
[2018-12-08] MEDS: MAGNESIUM 1 GM/100 ML IVPB 100 ML IV SCH (07:29)
[2018-12-08] MEDS: POTASSIUM CL 10MEQ/50ML IVPB 50 ML IV SCH (07:29)
[2018-12-08] MEDS: KCL 20 MEQ TAB (K-DUR) PO SCH (07:30)
--- NOTE | 2018-12-08 07:59 | Diagnostic Imaging Report ---
INDICATION: Atrial fib. Sepsis. Comparison with 12/07/2018. FINDINGS: There are no infiltrates. There is cardiomegaly. There is no pulmonary edema. No pneumothorax or pleural effusion. IMPRESSION: Cardiomegaly without acute change. Dictated by: Dictated on workstation # [id number]
[2018-12-08 08:00] VITALS: BP 151/77
[2018-12-08] MEDS: meTOproloL SUCCINATE 50 MG (TOPROL XL) TAB PO SCH (09:07)
[2018-12-08] MEDS: ETODOLAC 300 MG (LODINE) CAP PO SCH ×2 (09:07→20:29)
[2018-12-08] MEDS: ASPIRIN 81 MG CHEW (CHILDREN'S ASA) PO SCH (09:07)
[2018-12-08] MEDS: AMIODARONE 200 MG (CORDARONE) TAB PO SCH ×2 (09:07→20:30)
[2018-12-08] MEDS: OMEGA 3 (FISH OIL) 1000 MG CAP PO SCH ×2 (09:07→20:29)
[2018-12-08] MEDS: ENOXAPARIN 300 MG/3 ML (LOVENOX) MULTI-DOSE VIAL SQ SCH ×2 (09:10→22:30)
--- NOTE | 2018-12-08 09:18 | Pulmonary Progress Note ---
Subjective Time Seen by a Provider: 09:18 Sepsis Event Evaluation Height, Weight, BMI Height: 5'11" Weight: 260lbs. 0.0oz. [id number]; 48.32 BMI Method:Stated Focused Exam Lactate Level 12/06/18 03:10: Lactic Acid Level 0.69 Time of Focused Exam: 02:30 Exam Exam Vital Signs Date Time Temp Pulse Resp B/P (MAP) Pulse Ox O2 Delivery O2 Flow Rate FiO2 12/08/18 08:00 Nasal Cannula 2.00 12/08/18 08:00 37.0 75 18 151/77 (101) 93 Nasal Cannula 2.00 12/08/18 07:30 72 12/08/18 06:10 91 Nasal Cannula 2.00 12/08/18 04:15 37.0 72 21 145/77 (99) 93 Nasal Cannula 2.00 12/08/18 01:54 93 Nasal Cannula 2.00 12/08/18 01:00 83 12/07/18 23:00 37.7 77 23 143/69 (93) 92 Nasal Cannula 2.00 12/07/18 22:24 96 Nasal Cannula 3.00 12/07/18 20:02 36.8 70 24 155/75 (101) 96 Nasal Cannula 3.00 12/07/18 20:00 Nasal Cannula 2.00 12/07/18 19:00 72 12/07/18 18:55 97 Nasal Cannula 3.00 12/07/18 18:00 Nasal Cannula 2.00 12/07/18 16:00 68 143/70 (94) 94 Nasal Cannula 3.00 12/07/18 15:34 37.5 65 97 32 12/07/18 15:30 97 Nasal Cannula 3.00 12/07/18 15:00 65 141/85 (103) 99 Nasal Cannula 3.00 12/07/18 14:00 66 130/80 (97) 97 Nasal Cannula 3.00 12/07/18 13:00 64 133/70 (91) 96 Nasal Cannula 3.00 12/07/18 13:00 64 12/07/18 12:00 99 139/101 (114) 87 Nasal Cannula 3.00 12/07/18 12:00 Nasal Cannula 3.00 12/07/18 11:00 86 127/76 (93) 95 Nasal Cannula 3.00 12/07/18 10:00 73 147/85 (105) 95 Nasal Cannula 3.00 12/07/18 09:59 96 Nasal Cannula 3.00 I & O 12/08/18 07:00 Intake Total 1520 ml Output Total 750 ml Balance 770 ml Height & Weight Height: 5'11" Weight: 260lbs. 0.0oz. [id number]; 48.32 BMI Method:Stated General Appearance: No Apparent Distress, WD/WN, Chronically ill, Obese HEENT: PERRL/EOMI, TMs Normal, Normal ENT Inspection, Pharynx Normal, Moist Mucous Membranes Neck: Full Range of Motion, Normal Inspection, Non Tender Respiratory: No Accessory Muscle Use, No Respiratory Distress, Crackles, Decreased Breath Sounds Cardiovascular: No Edema, No Gallop, No JVD, No Murmur, Normal Peripheral Pulses, Irregularly Irregular, Tachycardia Capillary Refill: Less Than 3 Seconds Gastrointestinal: normal bowel sounds, non tender, soft Extremity: Pedal Edema (left leg) Neurologic/Psychiatric: Alert, Oriented x3, No Motor/Sensory Deficits, Normal Mood/Affect Skin: Normal Color, Warm/Dry, Other (left leg in evelina wrap) Lymphatic: No Adenopathy Results Lab Laboratory Tests 12/07/18 03:35 12/08/18 05:35 Assessment/Plan Assessment/Plan Pneumonia with sepsis -Rojas culture -Zosyn Bacteremia with strep -Zosyn Afib RVR -Cardiology following LLL cellulitis - IDDM Chronic anemia DEJA SMITH DO Dec 08, 2018 09:18
--- NOTE | 2018-12-08 10:17 | Progress Note - Hospitalist ---
Subjective HPI/CC On Admission Date Seen by Provider: Dec 08, 2018 Time Seen by Provider: 09:30 Chief complaint: Left leg cellulitis with pneumonia History of present illness: This is a 63-year-old white male chronically debilitated who presented to the ER with left leg cellulitis along with pneumonia and sepsis. He has a long-standing history of insulin-dependent diabetes along with CAD and patient was found to be in need of aggressive medical treatment supportive care to prevent decompensation. Dr. Florez has been consulted for the cellulitis. He has been placed on empiric antibiotics for the pneumonia and cellulitis. We'll restart home medications once reconciled. Subjective/Events-last exam Creatine stable at 1.94 PT and OT will evaluate him Pt seems to be a good candidate for inpatient rehab due to the multiple changes of status since he has been in the hospital including the new onset of AF and continued dyspnea on exertion and overall complexity due to comorbidities Bowels are moving Pt is eating and drinking well Review of Systems General: Fatigue Pulmonary: Dyspnea Focused Exam Lactate Level 12/06/18 03:10: Lactic Acid Level 0.69 Time of Focused Exam: 02:30 Objective Exam Vital Signs Vital Signs Date Time Temp Pulse Resp B/P (MAP) Pulse Ox O2 Delivery O2 Flow Rate FiO2 12/08/18 20:00 36.8 72 24 164/77 (106) 91 Nasal Cannula 2.00 12/07/18 15:34 32 Capillary Refill : Less Than 3 Seconds General Appearance: No Apparent Distress, WD/WN, Chronically ill Respiratory: Chest Non Tender, Lungs Clear, Normal Breath Sounds, No Accessory Muscle Use, No Respiratory Distress Cardiovascular: Regular Rate, Rhythm, No Edema, No Gallop, No JVD, No Murmur, Normal Peripheral Pulses Neurologic/Psychiatric: Alert, Oriented x3, No Motor/Sensory Deficits, Normal Mood/Affect Results/Procedures Lab Laboratory Tests 12/08/18 05:35 Patient resulted labs reviewed. Assessment/Plan Assessment and Plan Assess & Plan/Chief Complaint Assessment: AF w/RVR new onset Cardiology managing Left leg cellulitis Pneumonia CAD Diabetes mellitus insulin-dependent Morbid obesity BMI 48 Sepsis Panic attack Plan: Home meds Dr. Gutiérrez consultation and Dr. Contreras consultation was appreciated along with Dr. Florez Monitor closely OAC Rate control PT/OT IRF? Diagnosis/Problems Diagnosis/Problems (1) Atrial fibrillation with rapid ventricular response Status: Acute (2) Sepsis Status: Acute Qualifiers: Sepsis type: sepsis due to unspecified organism Sepsis acute organ dysfunction status: without acute organ dysfunction Qualified Codes: A41.9 - Sepsis, unspecified organism (3) Cellulitis of left lower leg Status: Acute (4) Pneumonia Status: Acute Qualifiers: Pneumonia type: due to unspecified organism Laterality: unspecified laterality Lung location: unspecified part of lung Qualified Codes: J18.9 - Pneumonia, unspecified organism (5) HTN (hypertension) Status: Acute Qualifiers: Hypertension type: essential hypertension Qualified Codes: I10 - Essential (primary) hypertension (6) Chronic renal failure Status: Chronic Qualifiers: Chronic kidney disease stage: stage 3 (moderate) Qualified Codes: N18.3 - Chronic kidney disease, stage 3 (moderate) (7) IDDM (insulin dependent diabetes mellitus) Status: Chronic (8) Hypoxia Status: Acute Clinical Quality Measures DVT/VTE Risk/Contraindication: Risk Factor Score Per Nursin RFS Level Per Nursing on Admit: 4+=Very High YARIEL BUI DO Dec 08, 2018 10:17
--- NOTE | 2018-12-08 10:35 | Cardiology Progress Note ---
Subjective Date Seen by Provider: Dec 08, 2018 Time Seen by Provider: 10:00 Subjective/Events-last exam Patient in bed, no new complaints. Denies any chest pain or palpitations. Focused Exam Lactate Level 12/06/18 03:10: Lactic Acid Level 0.69 Time of Focused Exam: 02:30 Objective-Cardiology Exam Last Set of Vital Signs Vital Signs 12/07/18 12/08/18 12/08/18 15:34 08:00 11:25 Pulse 75 Resp 18 B/P (MAP) 151/77 (101) Pulse Ox 91 O2 Delivery Nasal Cannula O2 Flow Rate 2.00 FiO2 32 Capillary Refill : Less Than 3 Seconds I&O Intake and Output 12/08/18 00:00 Intake Total 1400 ml Output Total 1050 ml Balance 350 ml Intake Oral 1300 ml IV Total 100 ml Output Urine Total 1050 ml # Voids 1 # Bowel Movements 1 General: Alert, Oriented X3, Cooperative HEENT: Atraumatic, PERRLA Neck: Supple, No JVD, No Thyromegaly Lungs: Normal Air Movement, Other (bilateral rhonchi) Heart: Regular Rate, Normal S1, Normal S2, No Murmurs Abdomen: Normal Bowel Sounds, Soft, No Tenderness, No Hepatosplenomegaly, No Masses Extremities: No Clubbing, No Cyanosis, Normal Pulses, Other (peripheral edema) Skin: No Rashes, No Breakdown, Other (and cellulitis) Neuro: Normal Speech, Normal Tone, Sensation Intact Psych/Mental Status: Mental Status NL, Mood NL Results Lab Laboratory Tests 12/08/18 05:35 A/P-Cardiology Admission Diagnosis Pneumonia Sepsis Coronary artery disease Hypertension Assessment/Plan Pneumonia with sepsis, receiving antibiotics, managed by primary care team Cellulitis, managed by primary care team receiving antibiotics next Acute on chronic renal failure, worsening renal function, stop metformin for now, we'll discuss with primary care physician New-onset atrial fibrillation, tachycardia, currently on Cardizem, Toprol XL and amiodarone in addition to Lovenox. Continue on current medication. Telemetry reveals SR this morning. Continue to monitor. Morbid obesity, obesity hypoventilation syndrome and acute respiratory failure. Managed by Dr. Contreras Peripheral edema, chronic, echocardiogram showed normal left ventricular size and function with ejection fraction 55-60 percent, left atrial dilatation measuring 6.1 cm, mild mitral regurgitation, pulmonary hypertension with PA pressure 40-50 mmHg. Continue to monitor Coronary artery disease, history of cardiac catheterization done in 2014 showing coronary ectasia with slow flow, no significant obstructive disease. Conservative management Hypertension, monitor blood pressure while on Cardizem Hyperlipidemia, monitor lipids Diabetes mellitus, followed and managed by primary care physician Patient was seen and evaluated with Charu, he is sitting in a chair, feeling better, breathing better, currently in sinus rhythm, heart is regular rate and rhythm. Patient has worsening renal function, I held his metformin at this time, we discussed with primary care physician regarding adjusting his diabetic medications. Monitor blood pressure Clinical Quality Measures DVT/VTE Risk/Contraindication: Risk Factor Score Per Nursin RFS Level Per Nursing on Admit: 4+=Very High Supervisory-Addendum Brief Supervisory Addendum Participated in pt care: history, MDM, physical Personally performed: exam, history, MDM Care discussed with: CHARU COOK Dec 08, 2018 10:35 AMI SANTACRUZ MD Dec 08, 2018 12:30
[2018-12-08 12:00] VITALS: BP 158/77
--- NOTE | 2018-12-08 12:55 | Occupational Therapy Eval ---
OT Evaluation-General/PLF Medical Diagnosis Admission Date Dec 04, 2018 at 02:50 Medical Diagnosis: L leg cellulitis, pneumonia, sepsis Onset Date: Dec 08, 2018 Therapy Diagnosis Therapy Diagnosis: weakness/ SOB, decreased functional mobility, decreased ADL abilties Height/Weight Height (Feet): 5 Height (Inches): 11 Weight (Pounds): 260 Weight (Ounces): 0.0 Precautions Precautions/Isolations: Standard Precautions Safety Interventions: None Weight Bear Status Weight Bearing Restriction: Weight Bearing/Tolerated Referral Physician: Dr Sandra Villagomez Referral Reason: Activity Tolerance, Self Care, Evaluation/Treatment, Strengthening/ROM Medical History Pertinent Medical History: CAD, DM, HTN, Neuropathy Current History Per H&P: "History of present illness: This is a 63-year-old white male chronically debilitated who presented to the ER with left leg cellulitis along with pneumonia and sepsis. He has a long-standing history of insulin-dependent diabetes along with CAD and patient was found to be in need of aggressive medical treatment supportive care to prevent decompensation. Dr. Florez has been consulted for the cellulitis. He has been placed on empiric antibiotics for the pneumonia and cellulitis. We'll restart home medications once reconciled." Reviewed History: Yes Social History Home: Single Level Current Living Status: Spouse Entry Into Home: Stairs With Railing Steps Into Home: 3 Steps Inside Home: 0 ADL-Prior Level of Function Therapy Code Descriptions/Definitions Functional [place] Measure: 0=Not Assessed/NA 4=Minimal Assistance 1=Total Assistance 5=Supervision or Setup 2=Maximal Assistance 6=Modified [place] 3=Moderate Assistance 7=Complete [place] Therapy Quality Codes: 6 Independent with activity with or without an assistive device 5 Patient requires set up or clean up by helper. Patient completes activity by themselves 4 Supervision or touching assist (CGA). [place] provide cues , steadying assist 3 The helper provides less than half the effort to complete the activity 2 The helper provides more than half the effort to complete the activity 1 Dependent. The helper does all the effort to complete an activity 7 Patient refused to complete or attempt activity 9 The patient did not perform the activity before the current illness or injury 88 Not attempted due to Medical conditions or safety concerns Functional Abilities and Goals: Independent: Patient completed the activities by him/herself, with or without an assistive device, with no assistance from a helper. Needed Some Help: Patient needed partial assistance from another person to complete activities. Dependent: A helper completed the activities for the patient. Unknown: Not Applicable: Self Care: Independent Functional Cognition: Independent DME/Equipment Comments Pt was IND without use of AE Drive Self: Yes OT Current Status Subjective Pt alert in recliner chair, states he has been SOB when ambulating. Pt states no desire to get out of chair as he just went to the bathroom. Pt states 0/10 pain. Mental Status/Objective Patient Orientation: Person, Place, Time, Situation, Normal For Age Attachments: IV, Oxygen (2 L) Current Glasses/Contacts: Yes Hearing Aids: No Dentures/Partials: No Hand Dominance: Right Upper Extremity ROM WFL Upper Extremity Coordination WFL Upper Extremity Sensation WFL UE Pt reports neuropathy in Bilateral feet. Pt states no falls due to neuropathy Upper Extremity Strength WFL 4+/5 BUE Edema: Nonpitting L LE, redness noted, LE wrapped ADL-Treatment Therapy Code Descriptions/Definitions Functional [place] Measure: 0=Not Assessed/NA 4=Minimal Assistance 1=Total Assistance 5=Supervision or Setup 2=Maximal Assistance 6=Modified [place] 3=Moderate Assistance 7=Complete [place] Therapy Quality Codes: 6 Independent with activity with or without an assistive device 5 Patient requires set up or clean up by helper. Patient completes activity by themselves 4 Supervision or touching assist (CGA). [place] provide cues , steadying assist 3 The helper provides less than half the effort to complete the activity 2 The helper provides more than half the effort to complete the activity 1 Dependent. The helper does all the effort to complete an activity 7 Patient refused to complete or attempt activity 9 The patient did not perform the activity before the current illness or injury 88 Not attempted due to Medical conditions or safety concerns Eating (FIM): 7 Grooming (FIM): 6 (Seated in chair.) Lower Body Dressing (FIM): 3 (Mod assist with socks) Other Treatments Pt good historian, states recent SOB experiences while standing/ performing functional mobility. Pt educated of acute OT role. Pt states his has walker and cane at home if needed; pt does not use 02 at home. Pt left with call light in reach, all needs met. Education OT Patient Education: Modified ADL techniques, Purpose of tx/functional activities, Rehab process, Safety issues Teaching Recipient: Patient Teaching Methods: Demonstration, Discussion Response to Teaching: Verbalize Understanding, Return Demonstration OT Short Term Goals Short Term Goals Upper Body Dressing(FIM): 6 Lower Body Dressing(FIM): 6 Transfers (B,C,W/C) (FIM): 6 1=Demonstrate adherence to instructed precautions during ADL tasks. 2=Patient will verbalize/demonstrate understanding of assistive devices/modifications for ADL. 3=Patient will improve strength/tolerance for activity to enable patient to perform ADL's. OT Hand Sole Sewer Goals Nursing Home Goals Eating (FIM): 7 Grooming(FIM): 6 Bathing(FIM): 6 Upper Body Dressing(FIM): 7 Lower Body Dressing(FIM): 6 Toileting(FIM): 6 Transfers (B,C,W/C) (FIM): 6 Toilet/Commode Transfer(FIM): 6 Tub Transfer(FIM): 6 Shower Transfer(FIM): 6 Additional Goals: 1-Demonstrate ADL Tasks, 2-Verbalize Understanding, 3- ImproveStrength/Johanna 1=Demonstrate adherence to instructed precautions during ADL tasks. 2=Patient will verbalize/demonstrate understanding of assistive devices/modif ications for ADL. 3=Patient will improve strength/tolerance for activity to enable patient to perform ADL's. OT Education/Plan Problem List/Assessment Assessment: Decreased Activ Tolerance, Edema, Impaired I ADL's, Impaired Self- Care Skills Discharge Recommendations Plan/Recommendations: Continue POC Patient/Family Goals Pt wishes to decrease SOB during tasks and increase endurance. Treatment Plan/Plan of Care Treatment,Training & Education: Yes Patient would benefit from OT for education, treatment and training to promote independence in ADL's, mobility, safety and/or upper extremity function for ADL's. Frequency: 5 times per week Estimated Hrs Per Day: .25 hour per day Agreement: Yes Rehab Potential: Fair Time/GCodes Start Time: 10:25 Stop Time: 10:36 Total Time Billed (hr/min): 11 Billed Treatment Time 1 EVM 11 CHRIS DELGADILLO OTR Dec 08, 2018 12:55
--- NOTE | 2018-12-08 13:20 | NUR ---
RD ASSESSMENT Pt was awake and pleasant during nutrition assessment. Pt states current appetite is pretty good and has been for the past several weeks. Pt states no issues with n/v/d/c at this time, and states last BM was this AM. Pt states unsure of recent wt changes. Note unable to determine recent wt hx, per chart review. Pt states current DM management is "pretty good." Note unable to determine recent HbA1c, per chart review. Note altered blood glucose level of 237 this AM. Abnormal Lab Values: BUN 30 (H); cr 1.94 (H); glu 237 (H); Hgb 9.7 (L); Hct 30 (L) Ht: 180 cm; Wt: 157.1 kg; BMI 48.3 Est. kcal needs: 1703-4574 kcal (15-18 kcal/kg) Est. Pro needs: 125-150 g Pro (0.8-1.0 g Pro/kg) PES Statement Altered nutrition-related lab values related to poor DM control as evidenced by blood glucose level of 237 mg/dL INTERVENTION: Continue with current diet order of CHO60g/m 3snack. Offered education and reinforcement of DM education, pt declined. Will attempt again before discharge. MONITOR/EVALUATE: PO Intake Weight Status Hydration Status Lab Values, including HbA1c Carmel Pizarro, , RD
--- NOTE | 2018-12-08 14:39 | Physical Therapy Evaluation ---
PT Evaluation-General Medical Diagnosis Admission Date Dec 04, 2018 at 02:50 Medical Diagnosis: L leg cellulitis, pneumonia, sepsis Onset Date: Dec 08, 2018 Therapy Diagnosis Therapy Diagnosis: impaired mobility, strength, endurance Height/Weight Height (Feet): 5 Height (Inches): 11 Weight (Pounds): 260 Weight (Ounces): 0.0 Precautions Precautions/Isolations: Standard Precautions Referral Physician: Dr Sandra Villagomez Reason for Referral: Evaluation/Treatment Medical History Pertinent Medical History: CAD, DM, HTN, Neuropathy Additional Medical History Past Medical History Surgeries: Abdominal, Cardiac Currently Using CPAP: No Currently Using BIPAP: No Cardiac: Chronic Edema/Swelling, High Cholesterol, Hypertension Neurological: Neuropathy Reproductive: No Sexually Transmitted Disease: No Gastrointestinal: Abdominal Hernia Endocrine: Diabetes, Insulin dep Loss of Vision: Denies Hearing Impairment: Denies History of Blood Disorders: No Reviewed History: Yes Social History Home: Single Level Current Living Status: Spouse Entry Into Home: Stairs With Railing PT Steps Into Home: 3 PT Steps Inside Home: 0 Prior/Core FIM Prior Level of Function Therapy Code Descriptions/Definitions Functional [place] Measure: 0=Not Assessed/NA 4=Minimal Assistance 1=Total Assistance 5=Supervision or Setup 2=Maximal Assistance 6=Modified [place] 3=Moderate Assistance 7=Complete [place] Therapy Quality Codes: 6 Independent with activity with or without an assistive device 5 Patient requires set up or clean up by helper. Patient completes activity by themselves 4 Supervision or touching assist (CGA). [place] provide cues , steadying assist 3 The helper provides less than half the effort to complete the activity 2 The helper provides more than half the effort to complete the activity 1 Dependent. The helper does all the effort to complete an activity 7 Patient refused to complete or attempt activity 9 The patient did not perform the activity before the current illness or inj ury 88 Not attempted due to Medical conditions or safety concerns Functional Abilities and Goals: Independent: Patient completed the activities by him/herself, with or without an assistive device, with no assistance from a helper. Needed Some Help: Patient needed partial assistance from another person to complete activities. Dependent: A helper completed the activities for the patient. Unknown: Not Applicable: Bed Mobility: 7 Transfers (B,C,W/C) (FIM): 7 Gait: 7 Stairs: 7 Indoor Mobility (Ambulation): Independent Stairs: Independent PT Evaluation-Current Subjective Patient in recliner pre tx, agrees to PT, has no complaints of pain. Pt/Family Goals to improve his shortness of breath Objective Patient Orientation: Person, Place, Situation Attachments: Oxygen, IV ROM/Strength Strength Lower Extremities 4+/5 gross BLE, LLE only tested hip flexion due to cellulitis Sensory Vision: Wears Glasses Hearing: Functional Hand Dominance: Right Sensation Right Lower Extremit: Impaired Sensation Left Lower Extremity: Impaired Transfers Therapy Code Descriptions/Definitions Functional [place] Measure: 0=Not Assessed/NA 4=Minimal Assistance 1=Total Assistance 5=Supervision or Setup 2=Maximal Assistance 6=Modified [place] 3=Moderate Assistance 7=Complete [place] Transfers (B, C, W/C) (FIM): 6 Sit to/from Stand: 6 Gait Mode of Locomotion: Walk Anticipated Mode of Locomotion: Walk Gait (FIM): 2 Distance: 40' Gait Level of Assist: 5 Gait Persons Needed: 1 Gait Assistive Device: None Comments/Gait Description slow but steady ambulation, patient SOB after ambulation Balance Sitting Static: Normal Sitting Dynamic: Normal Standing Static: Good Standing Dynamic: Good Treatment BLE seated exercises x15 (AP, LAQ, hip flexion) Assessment/Needs Patient has impaired mobility, strength, endurance. Patient gets SOB with activity. Rehab Potential: Fair PT Short Term Goals Short Term Goals Time Frame: Dec 15, 2018 Transfers (B,C,W/C) (FIM): 7 Gait (FIM): 7 Gait Distance Comment: 150' Gait Level of Assist: 7 Gait Assistive Device: None PT Plan Problem List Problem List: Activity Tolerance, Functional Strength, Safety, Balance, Gait, Transfer Treatment/Plan Treatment Plan: Continue Plan of Care Treatment Plan: Education, Functional Activity Johanna, Functional Strength, Gait, Safety, Therapeutic Exercise, Transfers Treatment Duration: Dec 15, 2018 Frequency: 6 times per week Estimated Hrs Per Day: .25 hour per day Patient and/or Family Agrees t: Yes Safety Risks/Education Patient Education: Gait Training, Transfer Techniques, Correct Positioning, Safety Issues Teaching Recipient: Patient Teaching Methods: Demonstration, Discussion Response to Teaching: Reinforcement Needed Discharge Recommendations Plan Patient will perform bed mobility and transfer training, balance and endurance training, functional strengthening, stair training, gait training, and education, to improve functional mobility and independence at home. Therapy Discharge Recommendati: Other, See Comments (home with family) Time/GCodes Time In: 1421 Time Out: 1434 Total Billed Treatment Time: 13 Total Billed Treatment 1 visit EVL 13' MARINO VEGA PT Dec 08, 2018 14:39
[2018-12-08 16:00] VITALS: BP 153/72
[2018-12-08 20:00] VITALS: BP 164/77
[2018-12-08] MEDS: SIMvastatin 10 MG (ZOCOR) TAB PO SCH (20:30)
[2018-12-09] VITALS: BP 177/77
--- NOTE | 2018-12-09 02:52 | NUR ---
PT BP TRENDING UPWARD, DR BUI NOTIFIED, NO NEW ORDERS AT THIS TIME
[2018-12-09] MEDS: RT-ALBUTEROL/IPRATROPIUM 3 ML (DUONEB) VIAL INH SCH ×3 (02:56→08:59)
[2018-12-09] MEDS: NS IV 1000 ML 1,000 ML IV SCH ×2 (03:09→10:55)
[2018-12-09 04:00] VITALS: BP 155/76
[2018-12-09 06:40] LABS: BASOPHILS % (AUTO) 0 % (0-10); EOSINOPHILS # (AUTO) 0.6 10^3/uL (0.0-0.3); EOSINOPHILS % (AUTO) 6 % (0-10); HEMATOCRIT 31 % (40-54); HEMOGLOBIN 9.9 G/DL (13.3-17.7); LYMPHOCYTES # (AUTO) 1.6 X 10^3 (1.0-4.0); LYMPHOCYTES % (AUTO) 17 % (12-44); MEAN CORPUSCULAR HGB CONC 32 G/DL (32-36); MEAN CORPUSCULAR VOLUME 93 FL (80-99); MONOCYTES # (AUTO) 0.9 X 10^3 (0.0-1.0); MONOCYTES % (AUTO) 10 % (0-12); NEUTROPHILS # (AUTO) 6.2 X 10^3 (1.8-7.8); NEUTROPHILS % (AUTO) 67 % (42-75); PLATELET COUNT 238 10^3/uL (130-400); RED CELL DISTRIBUTION WIDTH 14.1 % (10.0-14.5); WHITE BLOOD COUNT 9.4 10^3/uL (4.3-11.0)
[2018-12-09] MEDS: DILTIAZEM 60 MG (CARDIZEM) TAB PO SCH ×2 (06:41→09:08)
[2018-12-09] MEDS: inSUlin ASPART (NovoLOG) 1 UNIT/0.01 ML (CHARGE PER UNIT) SQ SCH ×2 (06:41→10:54)
[2018-12-09 06:42] LABS: MEAN CORPUSCULAR HEMOGLOBIN 29 PG (25-34)
[2018-12-09] MEDS: CATHETER FLUSH 10 ML SYR IV SCH (06:43)
[2018-12-09 07:03] LABS: CALCIUM 8.4 MG/DL (8.5-10.1); CREATININE SERUM 1.86 MG/DL (0.60-1.30); MAGNESIUM 2.3 MG/DL (1.6-2.4); PHOSPHORUS 3.7 MG/DL (2.3-4.7); POTASSIUM 4.7 MMOL/L (3.6-5.0)
--- NOTE | 2018-12-09 07:27 | Diagnostic Imaging Report ---
Indication: Sepsis. Portable chest 4:24 AM There is cardiomegaly with pulmonary vascular congestion. Lungs are clear. Impression: Cardiomegaly with pulmonary venous hypertension. No change from previous day. Dictated by: Dictated on workstation # [id number]
[2018-12-09] MEDS: MAGNESIUM 1 GM/100 ML IVPB 100 ML IV SCH (07:32)
[2018-12-09] MEDS: KCL 20 MEQ TAB (K-DUR) PO SCH (07:32)
[2018-12-09] MEDS: POTASSIUM CL 10MEQ/50ML IVPB 50 ML IV SCH (07:32)
[2018-12-09 08:00] VITALS: BP 166/78
--- NOTE | 2018-12-09 08:51 | Pulmonary Progress Note ---
Sepsis Event Evaluation Height, Weight, BMI Height: 5'11" Weight: 260lbs. 0.0oz. 117.893882dq; 48.32 BMI Method:Stated Focused Exam Time of Focused Exam: 02:30 Exam Exam Vital Signs Date Time Temp Pulse Resp B/P (MAP) Pulse Ox O2 Delivery O2 Flow Rate FiO2 12/09/18 07:00 75 12/09/18 06:44 95 Nasal Cannula 3.00 12/09/18 04:00 36.5 66 21 155/76 (102) 94 Nasal Cannula 2.00 12/09/18 01:32 76 12/09/18 00:00 36.9 75 22 177/77 (110) 95 Nasal Cannula 2.00 12/08/18 22:27 94 Nasal Cannula 2.00 12/08/18 20:30 Nasal Cannula 2.00 12/08/18 20:00 36.8 72 24 164/77 (106) 91 Nasal Cannula 2.00 12/08/18 19:00 71 12/08/18 18:02 91 Nasal Cannula 2.00 12/08/18 16:00 36.6 65 24 153/72 (99) 93 Nasal Cannula 2.00 12/08/18 14:00 90 Nasal Cannula 2.00 12/08/18 13:00 66 12/08/18 12:00 38.0 74 20 158/77 (104) 92 Nasal Cannula 2.00 12/08/18 11:25 91 Nasal Cannula 2.00 12/08/18 09:40 37.0 12/08/18 09:40 37.0 I & O 12/09/18 07:00 Intake Total 5570 ml Balance 5570 ml Height & Weight Height: 5'11" Weight: 260lbs. 0.0oz. 117.698622hs; 48.32 BMI Method:Stated General Appearance: No Apparent Distress, WD/WN, Chronically ill HEENT: PERRL/EOMI, TMs Normal, Normal ENT Inspection, Pharynx Normal, Moist Mucous Membranes Neck: Full Range of Motion, Normal Inspection, Non Tender Respiratory: Chest Non Tender, Lungs Clear, Normal Breath Sounds, No Accessory Muscle Use, No Respiratory Distress Cardiovascular: Regular Rate, Rhythm, No Edema, No Gallop, No JVD, No Murmur, Normal Peripheral Pulses Capillary Refill: Less Than 3 Seconds Gastrointestinal: normal bowel sounds, non tender, soft Extremity: Pedal Edema (left leg) Neurologic/Psychiatric: Alert, Oriented x3, No Motor/Sensory Deficits, Normal Mood/Affect Skin: Normal Color, Warm/Dry, Other (left leg in evelina wrap) Lymphatic: No Adenopathy Results Lab Laboratory Tests 12/08/18 05:35 12/09/18 05:47 Assessment/Plan Assessment/Plan Pneumonia with sepsis -Rojas culture -Zosyn Bacteremia with strep -Zosyn Afib RVR -Cardiology following LLL cellulitis - IDDM Chronic anemia DEJA SMITH DO Dec 09, 2018 08:51
[2018-12-09] MEDS ORDERED: APIXABAN 5 MG (ELIQUIS) TABLET PO SCH (09:00)
[2018-12-09] MEDS: meTOproloL SUCCINATE 50 MG (TOPROL XL) TAB PO SCH (09:08)
[2018-12-09] MEDS: OMEGA 3 (FISH OIL) 1000 MG CAP PO SCH (09:08)
[2018-12-09] MEDS: PIPERACILLIN/TAZOBACTAM (BULK) 4.5 GM in NS (IVPB) 100 ML IV SCH (09:08)
[2018-12-09] MEDS: ASPIRIN 81 MG CHEW (CHILDREN'S ASA) PO SCH (09:08)
[2018-12-09] MEDS: AMIODARONE 200 MG (CORDARONE) TAB PO SCH (09:13)
[2018-12-09] MEDS: ETODOLAC 300 MG (LODINE) CAP PO SCH (09:14)
--- NOTE | 2018-12-09 10:12 | Cardiology Progress Note ---
Subjective Date Seen by Provider: Dec 09, 2018 Time Seen by Provider: 10:11 Subjective/Events-last exam patient is laying down in bed, having some increasing dyspnea today. Denied any chest pain. No palpitation. Review of Systems General: No Chills, No Night Sweats, No Fatigue, No Malaise, No Appetite, No Other HEENT: No Head Aches, No Visual Changes, No Eye Pain, No Ear Pain, No Dysphasia, No Sinus Congestion, No Post Nasal Drip, No Sore Throat, No Other Pulmonary: Dyspnea; No Cough, No Pleuritic Chest Pain, No Other Cardiovascular: No: Chest Pain, Palpitations, Orthopnea, Paroxysmal Noc. Dyspnea, Edema, Lt Headedness, Other Focused Exam Time of Focused Exam: 02:30 Objective-Cardiology Exam Last Set of Vital Signs Vital Signs 12/07/18 12/09/18 12/09/18 15:34 08:00 09:00 Temp 36.6 Pulse 74 Resp 18 B/P (MAP) 166/78 (107) Pulse Ox 91 O2 Delivery Nasal Cannula O2 Flow Rate 3.00 FiO2 32 Capillary Refill : Less Than 3 Seconds I&O Intake and Output 12/09/18 00:00 Intake Total 4570 ml Balance 4570 ml Intake Oral 3450 ml IV Total 1120 ml # Voids 5 # Bowel Movements 3 General: Alert, Oriented X3, Cooperative HEENT: Atraumatic, PERRLA Neck: Supple, No JVD, No Thyromegaly Lungs: Normal Air Movement, Other (bilateral rhonchi) Heart: Regular Rate, Normal S1, Normal S2, No Murmurs Abdomen: Normal Bowel Sounds, Soft, No Tenderness, No Hepatosplenomegaly, No Masses Extremities: No Clubbing, No Cyanosis, Normal Pulses, Other (peripheral edema) Skin: No Rashes, No Breakdown, Other (and cellulitis) Neuro: Normal Speech, Normal Tone, Sensation Intact Psych/Mental Status: Mental Status NL, Mood NL Results Lab Laboratory Tests 12/09/18 05:47 A/P-Cardiology Admission Diagnosis Pneumonia Sepsis Coronary artery disease Hypertension Assessment/Plan Pneumonia with sepsis, improving, maintained on antibiotic and managed by primary care team Cellulitis, and improving, receiving antibiotic and managed by primary care team Acute on chronic renal failure, slightly better renal function today. Continue to monitor Shortness of breath, worsening today. Will give additional bronchodilator treatment. New-onset atrial fibrillation, back to sinus rhythm, continue on Toprol and amiodarone start Eliquis Morbid obesity, obesity hypoventilation syndrome and acute respiratory failure. Managed by Dr. Contreras Peripheral edema, chronic, echocardiogram showed normal left ventricular size and function with ejection fraction 55-60 percent, left atrial dilatation nanci uring 6.1 cm, mild mitral regurgitation, pulmonary hypertension with PA pressure 40-50 mmHg. Continue to monitor Coronary artery disease, history of cardiac catheterization done in 2014 showing coronary ectasia with slow flow, no significant obstructive disease. Conservative management Hypertension, monitor blood pressure while on Cardizem Hyperlipidemia, monitor lipids Diabetes mellitus, followed and managed by primary care physician Clinical Quality Measures DVT/VTE Risk/Contraindication: Risk Factor Score Per Nursin RFS Level Per Nursing on Admit: 4+=Very High AMI SANTACRUZ MD Dec 09, 2018 10:12
--- NOTE | 2018-12-09 10:33 | Discharge Summary ---
Discharge Summary Hospital Course Problems/Dx: (1) Atrial fibrillation with rapid ventricular response Status: Acute (2) Sepsis Status: Acute Qualifiers: Qualified Codes: A41.9 - Sepsis, unspecified organism (3) Cellulitis of left lower leg Status: Acute (4) Pneumonia Status: Acute Qualifiers: Qualified Codes: J18.9 - Pneumonia, unspecified organism (5) HTN (hypertension) Status: Acute Qualifiers: Qualified Codes: I10 - Essential (primary) hypertension (6) Chronic renal failure Status: Chronic Qualifiers: Qualified Codes: N18.3 - Chronic kidney disease, stage 3 (moderate) (7) IDDM (insulin dependent diabetes mellitus) Status: Chronic (8) Hypoxia Status: Acute Hospital Course Date of Admission: Dec 04, 2018 at 02:50 Admission Diagnosis : Family Physician/Provider: Neymar Degroot MD Date of Discharge: 12/09/18 Discharge Diagnosis: PNA, Left leg cellulitis, New onset AF w/RVR Hospital Course: Hospital course: Pt had a complicated hospital course for six days when he was admitted for pneumonia and left leg cellulitis, placed on empiric antibiotics and supportive care and treatment of sepsis with Dr. Contreras consultation and cardiology management. He did have new onset AF with RVR prompting ICU admission and antiarrhythmics for rate control, placed on oral anti-coagulation and pt was transferred back to fourth floor. He still continued to have issues with SOB and weakness and unable to be safe to go home so he was admitted to inpatient rehab for further evaluation and strengthening prior to going home to be successful and to decrease the chance of readmission.He was transferred to inpatient rehab without event. Labs and Pending Lab Test: Laboratory Tests 12/08/18 11:13: Glucometer 255H 12/08/18 16:09: Glucometer 299H 12/08/18 21:02: Glucometer 298H 12/09/18 05:47: White Blood Count 9.4, Red Blood Count 3.36L, Hemoglobin 9.9L, Hematocrit 31L, Mean Corpuscular Volume 93, Mean Corpuscular Hemoglobin 29, Mean Corpuscular Hemoglobin Concent 32, Red Cell Distribution Width 14.1, Platelet Count 238, Mean Platelet Volume 10.0, Neutrophils (%) (Auto) 67, Lymphocytes (%) (Auto) 17, Monocytes (%) (Auto) 10, Eosinophils (%) (Auto) 6, Basophils (%) (Auto) 0, Neutrophils # (Auto) 6.2, Lymphocytes # (Auto) 1.6, Monocytes # (Auto) 0.9, Eosinophils # (Auto) 0.6H, Basophils # (Auto) 0.0, Sodium Level 138, Potassium Level 4.7, Chloride Level 107, Carbon Dioxide Level 23, Anion Gap 8, Blood Urea Nitrogen 26H, Creatinine 1.86H, Estimat Glomerular Filtration Rate 37, BUN/Creatinine Ratio 14, Glucose Level 204H, Calcium Level 8.4L, Phosphorus Level 3.7, Magnesium Level 2.3 12/09/18 06:27: Glucometer 188H Microbiology 12/04/18 Blood Culture - Final, Complete Strep agalactiae Group B 12/06/18 MRSA Screen - Final, Complete MRSA not isolated 12/04/18 Urine Culture - Final, Complete 3 or more isolates Home Meds Active Reported Atorvastatin Calcium 80 Mg Tablet 80 Mg PO DAILY Aspirin EC (Aspirin) 81 Mg Tablet.dr 81 Mg PO DAILY Invokana (Canagliflozin) 100 Mg Tablet 100 Mg PO DAILY Diclofenac Sodium 75 Mg Tablet.dr 75 Mg PO BID Metformin HCl 1,000 Mg Tablet 1,000 Mg PO BID Toprol Xl (Metoprolol Succinate) 50 Mg Tab.er.24h 50 Mg PO DAILY Fish Oil 1,000 mg Softgel (Ruth-3/Dha/Epa/Fish Oil) 1 Each Capsule 2,000 Mg PO DAILY [Vitamin Pack] 1 Packet PO DAILY Levemir Flextouch (Insulin Detemir) 100 Unit/1 Ml Insuln.pen 80 Units SQ BID Victoza 3-Jason (Liraglutide) 0.6 Mg/0.1 Ml Pen.injctr 1.8 Mg SQ HS Novolog Flexpen (Insulin Aspart) 300 Units/3 Ml Solution 60 Units SQ 1200 Assessment/Pt Instructions IRF Discharge Planning: <30 minutes discharge planning Discharge Instructions Discharge Diet: ADA Diet, Cardiac Diet Activity as Tolerated: Yes Discharge Physical Examination Vital Signs Vital Signs Date Time Temp Pulse Resp B/P (MAP) Pulse Ox O2 Delivery O2 Flow Rate FiO2 12/09/18 09:00 91 Nasal Cannula 3.00 12/09/18 08:00 36.6 74 18 166/78 (107) 12/07/18 15:34 32 General Appearance: No Apparent Distress, WD/WN Respiratory: Chest Non Tender, Lungs Clear, Normal Breath Sounds, No Accessory Muscle Use, No Respiratory Distress Cardiovascular: Regular Rate, Rhythm, No Edema, No Gallop, No JVD, No Murmur, Normal Peripheral Pulses Neurologic/Psychiatric: Alert, Oriented x3, No Motor/Sensory Deficits, Normal Mood/Affect Allergies: Coded Allergies: NKANo Known Allergies (Verified Allergy, Unknown, 05/15/05) Discharge Summary Date of Admission Dec 04, 2018 at 02:50 Date of Discharge Discharge Date: Dec 09, 2018 Admission Diagnosis Assessment: Left leg cellulitis Pneumonia CAD Diabetes mellitus insulin-dependent Morbid obesity BMI 48 Sepsis Plan: Home meds Dr. Gutiérrez consultation and Dr. Contreras consultation was appreciated along with Dr. Vikki Huang closely Discharge Diagnosis Assessment: AF w/RVR new onset Cardiology managing Left leg cellulitis Pneumonia CAD Diabetes mellitus insulin-dependent Morbid obesity BMI 48 Sepsis Panic attack Plan: Home meds Dr. Gutiérrez consultation and Dr. Contreras consultation was appreciated along with Dr. Vikki Huang closely OAC Rate control PT/OT IRF? (1) Atrial fibrillation with rapid ventricular response Status: Acute (2) Sepsis Status: Acute Qualifiers: Qualified Codes: A41.9 - Sepsis, unspecified organism (3) Cellulitis of left lower leg Status: Acute (4) Pneumonia Status: Acute Qualifiers: Qualified Codes: J18.9 - Pneumonia, unspecified organism (5) HTN (hypertension) Status: Acute Qualifiers: Qualified Codes: I10 - Essential (primary) hypertension (6) Chronic renal failure Status: Chronic Qualifiers: Qualified Codes: N18.3 - Chronic kidney disease, stage 3 (moderate) (7) IDDM (insulin dependent diabetes mellitus) Status: Chronic (8) Hypoxia Status: Acute Clinical Quality Measures DVT/VTE Risk/Contraindication: Risk Factor Score Per Nursin RFS Level Per Nursing on Admit: 4+=Very High YARIEL BUI DO Dec 09, 2018 10:33
[2018-12-09 11:05] VITALS: BP 166/78
--- NOTE | 2018-12-09 11:05 | NUR ---
PATIENT TO GO TO INHOUSE REHAB. REPORT WAS CALLED TO KORY BARRY ON THAT FLOOR. PATIENT WAS TAKEN BY WHEELCHAIR WITH PORTABLE OXYGEN BY REHAB PERSONNEL.
== END 2018-12-09 11:05 | DRG 871 ==
LOC: EDUNIT# 01:06 → ER 01:08 → 4TH 02:50 → ICU 12-05 20:00 → 4TH 12-07 17:39
PROVIDERS: ADMIT Internal Medicine; ATTEND Internal Medicine
DX: A41.9 Sepsis, unspecified organism (principal); J18.9 Pneumonia, unspecified organism; L03.116 Cellulitis of left lower limb; R09.02 Hypoxemia; N17.9 Acute kidney failure, unspecified; I12.9 Hypertensive chronic kidney disease with stage 1 through stage 4 chronic kidney disease, or unspecified chronic kidney disease; N18.9 Chronic kidney disease, unspecified; E11.40 Type 2 diabetes mellitus with diabetic neuropathy, unspecified; Z68.42 Body mass index [BMI] 45.0-49.9, adult; E66.01 Morbid (severe) obesity due to excess calories; I48.91 Unspecified atrial fibrillation; I87.2 Venous insufficiency (chronic) (peripheral); I25.10 Atherosclerotic heart disease of native coronary artery without angina pectoris; F41.0 Panic disorder [episodic paroxysmal anxiety]; E78.5 Hyperlipidemia, unspecified; Z79.84 Long term (current) use of oral hypoglycemic drugs; Z87.891 Personal history of nicotine dependence
CPT/HCPCS: 36415; 36600; 71045; 71046; 80048; 80053; 80061; 80202; 81000; 82150; 82805; 82962; 83605; 83690; 83735; 83880; 84100; 84443; 84484; 85007; 85025; 85027; 85610; 85730; 87040; 87081; 87088; 87804; 93005; 93306; 93970; 94640; 94760; 96365; 96372; 96375

== ENCOUNTER 2018-12-09 09:48 | Inpatient (IN) | payer MEDICARE ==
[~2018-12-09] VITALS: Ht 213 cm; Wt 157.1 kg
[~2018-12-09 09:48] MED LIST changes: +ASPI-983 PO; +ATOR80TA76 PO; +CANA100T PO; +DICL75TA2 PO
--- NOTE | 2018-12-09 10:54 | NUR ---
REVIEWED MED REC IT WAS REPORTED UPON ADMISSION TO ICU. NO CHANGES WERE MADE WHEN THE PATIENT DISCHARGED TO REHAB.
--- NOTE | 2018-12-09 11:10 | NUR ---
FUAD CARSON admitted to room 228-1, with an admitting diagnosis of pneumonia, on 12/09/18 from via wheelchair, accompanied by staff.FUAD CARSON introduced to surroundings, call light, bed controls, phone, TV, temperature control, lights, meal times, smoking policy, visitor policy, side rail policy, bathrooms and showers. Patient Rights given to patient in the handbook. FUAD CARSON verbalizes understanding that [facility] is not responsible for the loss or damage to any personal effects or valuables that are kept in the patients posession during their hospitalization. The following Patient Care Plans were discussed with the pt: Discharge Planning. FUAD CARSON verbalizes understanding of Interdisciplinary Patient Education. Patient and/or family were informed about the Rapid Response Team and its purpose.
--- NOTE | 2018-12-09 11:39 | Physical Therapy Evaluation ---
PT Evaluation-General Medical Diagnosis Admission Date Dec 09, 2018 at 11:00 Medical Diagnosis: L leg cellulitis, pneumonia, sepsis Onset Date: Dec 04, 2018 Therapy Diagnosis Therapy Diagnosis: impaired mobility, strength, endurance Height/Weight Height (Feet): 5 Height (Inches): 11 Weight (Pounds): 260 Weight (Ounces): 0.0 Referral Physician: Sandra Villagomez DO Reason for Referral: Evaluation/Treatment Medical History Pertinent Medical History: CAD, DM, HTN, Neuropathy Additional Medical History Past Medical History Surgeries: Abdominal, Cardiac Currently Using CPAP: No Currently Using BIPAP: No Cardiac: Chronic Edema/Swelling, High Cholesterol, Hypertension Neurological: Neuropathy Reproductive: No Sexually Transmitted Disease: No Gastrointestinal: Abdominal Hernia Endocrine: Diabetes, Insulin dep Loss of Vision: Denies Hearing Impairment: Denies History of Blood Disorders: No Reviewed History: Yes Reviewed History: Yes Social History Home: Single Level Current Living Status: Spouse Entry Into Home: Stairs With Railing PT Steps Into Home: 3 Prior/Core FIM Prior Level of Function Therapy Code Descriptions/Definitions Functional [place] Measure: 0=Not Assessed/NA 4=Minimal Assistance 1=Total Assistance 5=Supervision or Setup 2=Maximal Assistance 6=Modified [place] 3=Moderate Assistance 7=Complete [place] Therapy Quality Codes: 6 Independent with activity with or without an assistive device 5 Patient requires set up or clean up by helper. Patient completes activity by themselves 4 Supervision or touching assist (CGA). [place] provide cues , steadying assist 3 The helper provides less than half the effort to complete the activity 2 The helper provides more than half the effort to complete the activity 1 Dependent. The helper does all the effort to complete an activity 7 Patient refused to complete or attempt activity 9 The patient did not perform the activity before the current illness or injury 88 Not attempted due to Medical conditions or safety concerns Functional Abilities and Goals: Independent: Patient completed the activities by him/herself, with or without an assistive device, with no assistance from a helper. Needed Some Help: Patient needed partial assistance from another person to complete activities. Dependent: A helper completed the activities for the patient. Unknown: Not Applicable: Bed Mobility: 7 Transfers (B,C,W/C) (FIM): 7 Gait: 7 Stairs: 7 Indoor Mobility (Ambulation): Independent Stairs: Independent PT Evaluation-Current Subjective Patient in recliner pre tx, agrees to PT, has no complaints of pain. Patient states that he is walking good he just cant' go very far because he gets SOB. Pt/Family Goals "to be able to breathe better" Objective Patient Orientation: Person, Place, Situation Attachments: Oxygen, IV ROM/Strength ROM Lower Extremities limited due to obesity and LE edema Strenght Lower Extremities 4+/5 gross BLE, LLE only tested hip flexion due to cellulitis Sensory Vision: Wears Glasses Hearing: Functional Sensation Right Lower Extremit: Impaired Sensation Left Lower Extremity: Impaired Transfers Therapy Code Descriptions/Definitions Functional [place] Measure: 0=Not Assessed/NA 4=Minimal Assistance 1=Total Assistance 5=Supervision or Setup 2=Maximal Assistance 6=Modified [place] 3=Moderate Assistance 7=Complete [place] Therapy Quality Codes: 6 Independent with activity with or without an assistive device 5 Patient requires set up or clean up by helper. Patient completes activity by themselves 4 Supervision or touching assist (CGA). [place] provide cues , steadying assist 3 The helper provides less than half the effort to complete the activity 2 The helper provides more than half the effort to complete the activity 1 Dependent. The helper does all the effort to complete an activity 7 Patient refused to complete or attempt activity 9 The patient did not perform the activity before the current illness or injury 88 Not attempted due to Medical conditions or safety concerns Transfers (B, C, W/C) (FIM): 6 Scootin Rollin Roll Left to Right (QC): 6 Supine to/from Sit: 6 Sit to/from Stand: 6 Sit to Lying (QC): 6 Lying to Sitting/Side of Bed(Q: 6 Sit to Stand (QC): 6 Chair/Xeb-ev-Mdbtw Xfer(QC): 6 Car Transfer (QC): 6 Patient performs bed mobility with mod I, supine <-> sit mod I, sit <-> stand mod I, transfers mod I, car transfer mod I. Gait Does the Patient Walk?: Yes Mode of Locomotion: Walk Anticipated Mode of Locomotion: Walk Gait (FIM): 5 (household exception) Walk 10 feet (QC): 4 Walk 50 ft with 2 Turns(QC): 4 Walking 10ft/uneven surface-QC: 4 Distance: 70'x4 Gait Level of Assist: 5 Gait Persons Needed: 1 Gait Assistive Device: None Comments/Gait Description Patient can ambulate 70' without an assistive device with SBA (including 50' with at least 2 turns of 90 degrees and 10' over an uneven surface). Patient had no LOB but gets very SOB with activity. Stairs Stairs (FIM): 2 #of Steps: 4 Level of Assist: 5 1 Step (curb) (QC): 4 4 Steps (QC): 4 Patient can go up and down 4 steps using 2 handrails with SBA. Balance Sitting Static: Normal Sitting Dynamic: Normal Standing Static: Normal Standing Dynamic: Good Treatment seated BLE exercises x20 (AP, LAQ, hip flexion) Assessment/Needs Patient has impaired mobility, strength, endurance. He gets very SOB with activity and can only ambulate short distances at this time because of that. Rehab Potential: Fair PT Short Term Goals Short Term Goals Time Frame: Dec 16, 2018 Transfers (B,C,W/C) (FIM): 6 Gait (FIM): 2 Gait Distance Comment: 100' Gait Level of Assist: 5 Gait Assistive Device: None PT Correctional Officer Goals Halfway Goals PT Halfway Goals Time Frame: Dec 30, 2018 Transfers (B,C,W/C) (FIM): 7 Sit to Lying (QC): 6 Lying-Sitting on Side/Bed(QC): 6 Sit to Stand (QC): 6 Rollin Roll Left to Right (QC): 6 Chair/Hyr-ny-Bhvlt Xfer(QC): 6 Car Transfer (QC): 6 Gait (FIM): 7 Distance: 150' Walk 10 feet (QC): 6 Walk 10ft-Uneven Surface(QC): 6 Walk 50ft with 2 Turns (QC): 6 Walk 150 ft (QC): 6 Gait Level of Assist: 7 Gait Assistive Device: None Stairs (FIM): 2 # of Steps: 4 1 Step (curb) (QC): 6 4 Steps (QC): 6 12 Steps (QC): 6 Stairs Level Of Assist: 6 PT Plan Problem List Problem List: Activity Tolerance, Functional Strength, Safety, Balance, Gait, Transfer, Bed Mobility Treatment/Plan Treatment Plan: Continue Plan of Care Treatment Plan: Bed Mobility, Education, Functional Activity Johanna, Functional Strength, Group Therapy, Gait, Safety, Therapeutic Exercise, Transfers Treatment Duration: Dec 30, 2018 Frequency: At least 5 of 7 days/Wk (IRF) Estimated Hrs Per Day: 1.5 hours per day Patient and/or Family Agrees t: Yes Safety Risks/Education Patient Education: Gait Training, Transfer Techniques, Steps, Correct Positioning, Safety Issues Teaching Recipient: Patient Teaching Methods: Demonstration, Discussion Response to Teaching: Reinforcement Needed Discharge Recommendations Plan Patient will perform bed mobility and transfer training, balance and endurance training, functional strengthening, stair training, gait training, and education, to improve functional mobility and independence at home. Therapy Discharge Recommendati: Other, See Comments (home with family) Time/GCodes Time In: 1040 Time Out: 1130 Total Billed Treatment Time: 50 Total Billed Treatment 1 visit EVM 30' FA 20' MARINO VEGA PT Dec 09, 2018 11:39
[2018-12-09] MEDS ORDERED: ACETAMINOPHEN 500 MG TAB (TYLENOL) PO PRN (11:45)
[2018-12-09 11:47] VITALS: BP 153/95
--- NOTE | 2018-12-09 12:05 | Occupational Therapy Eval ---
OT Evaluation-General/PLF Medical Diagnosis Admission Date Dec 09, 2018 at 11:00 Medical Diagnosis: L leg cellulitis, pneumonia, sepsis Onset Date: Dec 04, 2018 Therapy Diagnosis Therapy Diagnosis: decreased ADL and functional mobility Height/Weight Height (Feet): 5 Height (Inches): 11 Weight (Pounds): 260 Weight (Ounces): 0.0 Precautions Precautions/Isolations: Standard Precautions Safety Interventions: None Weight Bear Status Weight Bearing Restriction: Weight Bearing/Tolerated Referral Physician: Sandra Villagomez DO Referral Reason: Activity Tolerance, Self Care, Evaluation/Treatment, Strengthening/ROM Medical History Pertinent Medical History: CAD, DM, HTN, Neuropathy Additional Medical History CAD, DM, HTN, neuropathy BLE Current History Pt transferred from acute to [facility] on 12/09/18 due to weakness and SOB during activities. Reviewed History: Yes Social History Home: Single Level Current Living Status: Spouse Entry Into Home: Stairs With Railing Steps Into Home: 3 Steps Inside Home: 0 Pt states works outside the home 5 days a week. Pt states has one child who is local, 3 of his own children around the [facility]. ADL-Prior Level of Function Therapy Code Descriptions/Definitions Functional [place] Measure: 0=Not Assessed/NA 4=Minimal Assistance 1=Total Assistance 5=Supervision or Setup 2=Maximal Assistance 6=Modified [place] 3=Moderate Assistance 7=Complete [place] Therapy Quality Codes: 6 Independent with activity with or without an assistive device 5 Patient requires set up or clean up by helper. Patient completes activity by themselves 4 Supervision or touching assist (CGA). [place] provide cues , steadying assist 3 The helper provides less than half the effort to complete the activity 2 The helper provides more than half the effort to complete the activity 1 Dependent. The helper does all the effort to complete an activity 7 Patient refused to complete or attempt activity 9 The patient did not perform the activity before the current illness or injury 88 Not attempted due to Medical conditions or safety concerns Functional Abilities and Goals: Independent: Patient completed the activities by him/herself, with or without an assistive device, with no assistance from a helper. Needed Some Help: Patient needed partial assistance from another person to complete activities. Dependent: A helper completed the activities for the patient. Unknown: Not Applicable: Self Care: Independent Functional Cognition: Independent DME/Equipment: Bath Chair, Grab Bars DME/Equipment Comments Pt utilizes built in shower chair, grab bars on outside and one inside walk in shower, grab bars near toilet, utilizes commode for arm rest support. Pt states IND within I/ADLs without use of AE. Occupation: disabled Drive Self: Yes Leisure Interests: "playing with my dogs" OT Current Status Subjective Pt seen in recliner chair, no pain noted, stated, "Just been short of breath." Pt agreeable to OT evaluation. Pain Numeric Pain Scale: 0-No Pain Appearance L LE wrapped, swelling noted. Mental Status/Objective Patient Orientation: Person, Place, Time, Situation, Normal For Age Attachments: IV, Oxygen (2 L) Current Glasses/Contacts: Yes Hearing Aids: No Dentures/Partials: No Hand Dominance: Right Upper Extremity ROM WFL BUE Upper Extremity Coordination WFL BUE Upper Extremity Sensation WFL BUE neuropathy/ impairment BLE Upper Extremity Strength WFL BUE Edema: L LE, non pitting ADL-Treatment Grooming (FIM): 6 (Seated in chair.) Other Treatments Pt seen in recliner chair. Pt states he does not think he will have difficulty completing ADLs but has difficulty with functional mobility and endurance activities. Pt stands for 3 minutes, no SOB noted but states would like to sit. Pt educated on rehab process, pt given commode chair and shower chair for safety and home simulation. No questions noted. Pt left with call light in reach, all needs met. Education OT Patient Education: Progress toward Goal/Update tx plan, Purpose of tx/functional activities, Rehab process Teaching Recipient: Patient Teaching Methods: Demonstration, Discussion Response to Teaching: Verbalize Understanding, Return Demonstration OT Short Term Goals Short Term Goals Bathing(FIM): 5 Upper Body Dressing(FIM): 5 Lower Body Dressing(FIM): 5 Transfers (B,C,W/C) (FIM): 6 Toilet/Commode Transfer(FIM): 5 Additional Short Term Goals: 1-Demonstrate ADL Tasks, 2-Verbalize Understanding, 3-ImproveStrength/Johanna 1=Demonstrate adherence to instructed precautions during ADL tasks. 2=Patient will verbalize/demonstrate understanding of assistive devices/modifications for ADL. 3=Patient will improve strength/tolerance for activity to enable patient to perform ADL's. OT Director Of Event Management Goals Nursing Home Goals Eating (FIM): 7 Eating (QC): 6 Groomin Oral Hygiene (QC): 7 Bathing(FIM): 6 Shower/Bathe Self (QC): 6 Upper Body Dressing(FIM): 7 Upper Body Dressing (QC): 6 Lower Body Dressing(FIM): 6 Lower Body Dressing (QC): 6 On/Off Footwear (QC): 6 Toileting(FIM): 6 Toileting Hygiene (QC): 7 Transfers (B,C,W/C) (FIM): 7 Toilet/Commode Transfer(FIM): 7 Toilet/Commode Transfer (QC): 6 Tub Transfer(FIM): 6 Shower Transfer(FIM): 6 Additional Goals: 1-Demonstrate ADL Tasks, 2-Verbalize Understanding, 3-Imp roveStrength/Johanna 1=Demonstrate adherence to instructed precautions during ADL tasks. 2=Patient will verbalize/demonstrate understanding of assistive devices/modifications for ADL. 3=Patient will improve strength/tolerance for activity to enable patient to perform ADL's. OT Education/Plan Problem List/Assessment Assessment: Decreased Activ Tolerance, Edema, Impaired I ADL's, Impaired Self- Care Skills Discharge Recommendations Plan/Recommendations: Continue POC Therapy Discharge Recommendati: Other, See Comments (Home with family support) Comment TBD Patient/Family Goals Complete activities with greater energy/ less SOB Treatment Plan/Plan of Care Treatment,Training & Education: Yes Patient would benefit from OT for education, treatment and training to promote independence in ADL's, mobility, safety and/or upper extremity function for ADL's. Treatment Duration: Dec 23, 2018 Frequency: 5 times per week Estimated Hrs Per Day: 1 hour per day Agreement: Yes Rehab Potential: Fair Time/GCodes Start Time: 11:30 Stop Time: 11:55 Total Time Billed (hr/min): 25 Billed Treatment Time 1 KYLAH (25) CHRIS DELGADILLO OTR Dec 09, 2018 12:05
[2018-12-09] MEDS: DILTIAZEM 60 MG (CARDIZEM) TAB PO SCH ×2 (12:28→17:27)
[2018-12-09] MEDS: CATHETER FLUSH 10 ML SYR IV SCH ×2 (13:54→20:20)
--- NOTE | 2018-12-09 14:15 | Occupational Ther Daily Note ---
OT Current Status-Daily Note Subjective Pt alert, sitting in recliner. Pt agrees to therapy. No c/o pain. SOA noted during therapy with pt taking multiple recovery breaks. Mental Status/Objective Patient Orientation: Person, Place, Time, Situation Therapy Code Descriptions/Definitions Functional [place] Measure: 0=Not Assessed/NA 4=Minimal Assistance 1=Total Assistance 5=Supervision or Setup 2=Maximal Assistance 6=Modified [place] 3=Moderate Assistance 7=Complete [place] Attachments: IV, Oxygen (2L) ADL-Treatment Pt stated that he had just used the toilet right before BATES came into room by self. Pt is up ad rhonda in room without any AE, is able to manipulate O2 tubing and IV (when attached). Pt ambulated to the bathroom and transferred into shower using grabbars with supervision. Pt completed bathing, rinsing and drying self with supervision. Pt completed grooming sitting in shower. Pt stood to dry feet using wall and grabbar for stability, no LOB noted. After set up, pt able to complete donning clothing by self. Assist to doff socks. Pt able to don socks sitting EOB and pulling feet up onto bed. AE for lower body dressing was introduced to pt for energy conservation techniques. Pt demonstrated understanding of sock aide. Pt took increased time to complete ADL tasks due to decreased activity tolerance requiring multiple recovery breaks. Multiple cracks at proximal crease of toes of B feet noted and one dark spot on L bottom ball of foot, nrsg notified. L lower leg wrapped with 3 wraps to decreased edema. After therapy, pt sitting in recliner with call light/phone in reach. All needs met in room. Therapy Code Descriptions/Definitions Functional [place] Measure: 0=Not Assessed/NA 4=Minimal Assistance 1=Total Assistance 5=Supervision or Setup 2=Maximal Assistance 6=Modified [place] 3=Moderate Assistance 7=Complete [place] Therapy Quality Codes: 6 Independent with activity with or without an assistive device 5 Patient requires set up or clean up by helper. Patient completes activity by themselves 4 Supervision or touching assist (CGA). [place] provide cues , steadying assist 3 The helper provides less than half the effort to complete the activity 2 The helper provides more than half the effort to complete the activity 1 Dependent. The helper does all the effort to complete an activity 7 Patient refused to complete or attempt activity 9 The patient did not perform the activity before the current illness or injury 88 Not attempted due to Medical conditions or safety concerns Grooming (FIM): 6 Oral Hygiene (QC): 6 Bathing (FIM): 5 Bathing Location: L Arm, R Arm, L Upper Leg, R Upper Leg, L Lower Leg (including foot), R Lower Leg (including foot), Chest, Abdomen, Buttocks, Perineal Area Shower/Bathe Self (QC): 4 Upper Body (FIM): 5 Upper Body Dressing (QC): 5 Lower Body Dressing (FIM): 4 Lower Body Dressing (QC): 3 On/Off Footwear (QC): 3 Toileting (FIM): 6 (grabbars and BSC) Toileting Hygiene (QC): 6 Transfers (B, C, W/C) (FIM): 7 Toilet/Commode Transfer (FIM): 6 (grabbars and BSC) Toilet Transfer (QC): 6 Shower Transfer(FIM): 5 Pt stated that he has walk-in shower with seat, bench in kitchen to rest on when cooking. OT Short Term Goals Short Term Goals Bathing(FIM): 5 Upper Body Dressing(FIM): 5 Lower Body Dressing(FIM): 4 Transfers (B,C,W/C) (FIM): 6 Toilet/Commode Transfer(FIM): 5 Additional Short Term Goals: 1-Demonstrate ADL Tasks, 2-Verbalize Understanding, 3-ImproveStrength/Johanna 1=Demonstrate adherence to instructed precautions during ADL tasks. 2=Patient will verbalize/demonstrate understanding of assistive devices/mo difications for ADL. 3=Patient will improve strength/tolerance for activity to enable patient to perform ADL's. OT Dredge Mechanic Goals Jail Goals Eating (FIM): 7 Eating (QC): 6 Groomin Oral Hygiene (QC): 6 Bathing(FIM): 6 Shower/Bathe Self (QC): 6 Upper Body Dressing(FIM): 6 Upper Body Dressing (QC): 6 Lower Body Dressing(FIM): 6 Lower Body Dressing (QC): 6 On/Off Footwear (QC): 6 Toileting(FIM): 6 Toileting Hygiene (QC): 6 Transfers (B,C,W/C) (FIM): 7 Toilet/Commode Transfer(FIM): 6 Toilet/Commode Transfer (QC): 6 Tub Transfer(FIM): 6 Shower Transfer(FIM): 6 Additional Goals: 1-Demonstrate ADL Tasks, 2-Verbalize Understanding, 3- ImproveStrength/Johanna 1=Demonstrate adherence to instructed precautions during ADL tasks. 2=Patient will verbalize/demonstrate understanding of assistive devices/modifications for ADL. 3=Patient will improve strength/tolerance for activity to enable patient to perform ADL's. OT Education/Plan Problem List/Assessment Assessment: Decreased Activ Tolerance, Impaired Self-Care Skills Discharge Recommendations Plan/Recommendations: Continue POC Treatment Plan/Plan of Care Patient would benefit from OT for education, treatment and training to promote independence in ADL's, mobility, safety and/or upper extremity function for ADL's. Treatment Duration: Dec 23, 2018 Frequency: 5 times per week Estimated Hrs Per Day: 1 hour per day Agreement: Yes Rehab Potential: Fair Time/GCodes Start Time: 12:50 Stop Time: 13:55 Total Time Billed (hr/min): 65 Billed Treatment Time 1 visit-ADL 4 (65 min) TERRA SHAW Dec 09, 2018 14:15
[2018-12-09] MEDS: RT-ALBUTEROL/IPRATROPIUM 3 ML (DUONEB) VIAL INH SCH ×3 (14:44→21:40)
--- NOTE | 2018-12-09 15:04 | Physical Therapy Daily Note ---
PT Daily Note-Current Subjective Agrees to PT. Reports his primary limitation is SOA and feeling like his air does not go past his head. Reports increased discomfort on the Nu step and unable to ride it. Transfers Therapy Code Descriptions/Definitions Functional [place] Measure: 0=Not Assessed/NA 4=Minimal Assistance 1=Total Assistance 5=Supervision or Setup 2=Maximal Assistance 6=Modified [place] 3=Moderate Assistance 7=Complete [place] Therapy Quality Codes: 6 Independent with activity with or without an assistive device 5 Patient requires set up or clean up by helper. Patient completes activity by themselves 4 Supervision or touching assist (CGA). English provide cues , steadying assist 3 The helper provides less than half the effort to complete the activity 2 The helper provides more than half the effort to complete the activity 1 Dependent. The helper does all the effort to complete an activity 7 Patient refused to complete or attempt activity 9 The patient did not perform the activity before the current illness or injury 88 Not attempted due to Medical conditions or safety concerns Treatments Pt walked 125 ft x 3 reps with FWW with SBA. Attempted Nu Step but the position placed too much pressure on his abdomen and limited his abiolity to breathe. Up/down 4 steps x 2. Pt requires frequent rest breaks due to SOA. Education on breathing techniques provided. Assessment Pt's strength and balance are functional; limited by SoA and decreased functional activity tolerance. PT Short Term Goals Short Term Goals Time Frame: Dec 16, 2018 Transfers (B,C,W/C) (FIM): 6 Gait (FIM): 2 Gait Distance Comment: 100' Gait Level of Assist: 5 Gait Assistive Device: None PT Edge Worker Goals Mcfp Goals PT Mcfp Goals Time Frame: Dec 30, 2018 Transfers (B,C,W/C) (FIM): 7 Sit to Lying (QC): 6 Lying-Sitting on Side/Bed(QC): 6 Sit to Stand (QC): 6 Rollin Roll Left to Right (QC): 6 Chair/Tck-hj-Xmmmu Xfer(QC): 6 Car Transfer (QC): 6 Gait (FIM): 7 Distance: 150' Walk 10 feet (QC): 6 Walk 10ft-Uneven Surface(QC): 6 Walk 50ft with 2 Turns (QC): 6 Walk 150 ft (QC): 6 Gait Level of Assist: 7 Gait Assistive Device: None Stairs (FIM): 2 # of Steps: 4 1 Step (curb) (QC): 6 4 Steps (QC): 6 12 Steps (QC): 6 Stairs Level Of Assist: 6 PT Plan Problem List Problem List: Activity Tolerance, Functional Strength, Safety Treatment/Plan Treatment Plan: Continue Plan of Care Treatment Plan: Bed Mobility, Education, Functional Activity Johanna, Functional Strength, Group Therapy, Gait, Safety, Therapeutic Exercise, Transfers Treatment Duration: Dec 30, 2018 Frequency: At least 5 of 7 days/Wk (IRF) Estimated Hrs Per Day: 1.5 hours per day Patient and/or Family Agrees t: Yes Time/GCodes Time In: 1400 Time Out: 1440 Total Billed Treatment Time: 40 Total Billed Treatment visit FA 40 TERRA IWTT PT Dec 09, 2018 15:04
[2018-12-09 17:03] VITALS: BP 173/69
[2018-12-09] MEDS: OMEGA 3 (FISH OIL) 1000 MG CAP PO SCH (17:27)
[2018-12-09] MEDS: inSUlin ASPART (NovoLOG) 1 UNIT/0.01 ML (CHARGE PER UNIT) SQ SCH ×2 (17:28→20:17)
[2018-12-09] MEDS: APIXABAN 5 MG (ELIQUIS) TABLET PO SCH (20:16)
[2018-12-09] MEDS: ETODOLAC 300 MG (LODINE) CAP PO SCH (20:16)
[2018-12-09] MEDS: AMIODARONE 200 MG (CORDARONE) TAB PO SCH (20:17)
[2018-12-09] MEDS ORDERED: SIMvastatin 10 MG (ZOCOR) TAB PO SCH (21:00)
[2018-12-10] MEDS: DILTIAZEM 60 MG (CARDIZEM) TAB PO SCH ×2 (00:55→05:50)
[2018-12-10 02:10] VITALS: BP 228/108
--- NOTE | 2018-12-10 02:10 | NUR ---
BP in right arm 228/108, BP left arm 213/123. Dr. Villagomez notified and no new orders as of yet. Cont to monitor.
[2018-12-10] MEDS ORDERED: meTOproloL SUCCINATE 50 MG (TOPROL XL) TAB PO ONE (02:28)
[2018-12-10 02:32] VITALS: BP 213/123
--- NOTE | 2018-12-10 02:32 | NUR ---
BP 223/91. AM Toprol XL 50mg PO given. Dr. Villagomez notified.
[2018-12-10] MEDS: RT-ALBUTEROL/IPRATROPIUM 3 ML (DUONEB) VIAL INH SCH ×3 (02:36→10:03)
--- NOTE | 2018-12-10 03:23 | NUR ---
BP 183/77 HR 73. Cont to monitor
[2018-12-10 03:26] VITALS: BP 183/77
[2018-12-10] MEDS ORDERED: cloNIDine 0.1 MG (CATAPRES) TAB PO PRN (04:15)
[2018-12-10 04:20] VITALS: BP 219/74
[2018-12-10 05:25] VITALS: BP 195/79
[2018-12-10] MEDS: OMEGA 3 (FISH OIL) 1000 MG CAP PO SCH (05:50)
[2018-12-10] MEDS: inSUlin ASPART (NovoLOG) 1 UNIT/0.01 ML (CHARGE PER UNIT) SQ SCH (05:50)
[2018-12-10] MEDS: CATHETER FLUSH 10 ML SYR IV SCH (05:50)
[2018-12-10] MEDS ORDERED: MULTIVIT W/MINERALS TAB (THERAGRAN M) PO SCH (07:00)
--- NOTE | 2018-12-10 08:03 | PM&R H&P / Post Admit Assess ---
History of Present Illness HPI/Chief Complaint Chief complaint: Debility from myopathy HPI: This is a 63yoWM that had a long hospital course for seven days on acute med-surg, that included an atrial fibrillation new onset with rapid ventricular response requiring ICU admission, in addition to cardiology and pulmonology management, along with general surgery for the left leg cellulitis. Pt completed antibiotics but had severe weakness and high risk for re-admission so was placed in inpatient rehab to regain strength to finalize medications to complete all the treatment plan from cardiology and pulmonology while being closely monitored on telemetry. His prior level of functioning was independent at home with his . Last night he had very elevated blood pressure and clonidine was given when necessary. Lower extremity edema continues to be a problem so we'll place wide Amari wraps. Patient still complaining of dyspnea which she's never had a sleep study and never had any lung or heart problems that he knew was before admitted. Patient appears to be very very debilitated and decompensated although stable. Source: patient, RN/MD, old records Exam Limitations: no limitations Date Seen 12/10/18 Time Seen by a Provider: 08:30 Attending Physician Sandra Villagomez DO PCP Neymar Degroot MD Referring Physician Date of Admission Dec 09, 2018 at 11:00 Home Medications & Allergies Home Medications Reviewed patient Home Medication Reconciliation performed by pharmacy medication reconciliations graphics edit technician and/or nursing. Patients Allergies have been reviewed. Allergies Allergies Coded Allergies NKANo Known Allergies (Verified Allergy, Unknown, 05/15/05) Past Dfyyxfz-Wpqril-Hsmeyr Hx Past Med/Social Hx: Reviewed Nursing Past Med/Soc Hx, Reviewed and Corrections made Patient Social History Marrital Status: Employed/Student: unemployed Alcohol Use: Denies Use Recreational Drug Use: No Smoking Status: Former Smoker Former Smoker, Quit: Aug 15, 2005 Physical Abuse Screen: No Sexual Abuse: No Recent Foreign Travel: No Contact w/other who traveled: No Recent Hopitalizations: No Recent Infectious Disease Expo: No Immunizations Up To Date Tetanus Booster (TDap): More than 5yrs Seasonal Allergies Seasonal Allergies: No Past Medical History Surgeries: Abdominal, Cardiac Respiratory: Pneumonia Currently Using CPAP: No Currently Using BIPAP: No Cardiac: Atrial Fibrillation (12/02), Chronic Edema/Swelling, High Cholesterol, Hypertension Neurological: Neuropathy Reproductive: No Sexually Transmitted Disease: No Gastrointestinal: Abdominal Hernia Endocrine: Diabetes, Insulin dep Loss of Vision: Denies Hearing Impairment: Denies History of Blood Disorders: No Family History Diabetes mellitus 19 FATHER G8 BROTHER Hypertension G8 BROTHER Myocardial infarction 19 FATHER, Onset:50's - 60 Review of Systems Constitutional: see HPI, malaise, weakness EENTM: no symptoms reported Respiratory: dyspnea on exertion Cardiovascular: edema, palpitations Gastrointestinal: no symptoms reported Genitourinary: no symptoms reported Musculoskeletal: see HPI Skin: see HPI Psychiatric/Neurological: Anxiety, Depressed All Other Systems Reviewed Negative Unless Noted: Yes Physical Exam Exam Vital Signs Vital Signs Date Time Temp Pulse Resp B/P (MAP) Pulse Ox O2 Delivery O2 Flow Rate FiO2 12/10/18 08:25 67 167/79 (108) 12/10/18 06:32 85 Nasal Cannula 4.00 12/10/18 03:26 36.2 21 12/09/18 14:55 92 Capillary Refill : General Appearance: No Apparent Distress, WD/WN, Anxious, Chronically ill, Obese HEENT: PERRL/EOMI, Normal ENT Inspection, Pharynx Normal, Moist Mucous Membranes Neck: Full Range of Motion, Normal Inspection, Non Tender, Supple Respiratory: Chest Non Tender, Lungs Clear, No Accessory Muscle Use, No Respiratory Distress, Decreased Breath Sounds Cardiovascular: Regular Rate, Rhythm, No Gallop, No JVD, No Murmur Gastrointestinal: Normal Bowel Sounds, No Organomegaly, No Pulsatile Mass, Non Tender, Soft Back: Normal Inspection, No CVA Tenderness, No Vertebral Tenderness Extremity: Normal Capillary Refill, Normal Inspection, Normal Range of Motion, Non Tender, No Calf Tenderness, Pedal Edema Neurologic/Psychiatric: Alert, Oriented x3, No Motor/Sensory Deficits, Normal Mood/Affect, Motor Weakness (generalized weakness all extremities) Skin: Normal Color, Warm/Dry Lymphatic: No Adenopathy Results Results/Procedures Labs Laboratory Tests 12/10/18 08:55 Patient resulted labs reviewed. Assessment/Plan Assessment and Plan Assess & Plan/Chief Complaint Assessment: Acute on chronic dyspnea with debility for myopathy New onset atrial fibrillation with rapid ventricular response appreciate c ardiology consultation Suspicion for obesity hypoventilation syndrome consult and Dr. Contreras Lower extremity edema applying Amari wraps Plan: Wide Amari wraps Check ABG Monitor pain (1) Myopathy (2) Diabetes mellitus with hyperglycemia Status: Acute (3) Cellulitis of left lower extremity Status: Acute (4) Dehydration Status: Acute (5) Hyperkalemia Status: Acute (6) Acute renal failure Status: Acute (7) Back pain Status: Acute (8) Abdominal pain Status: Acute (9) Chest pain Status: Acute (10) Diabetes (11) Hypoxia Status: Acute (12) Atrial fibrillation with rapid ventricular response Status: Acute Post Admission Physician Asses Date seen by provider: Dec 10, 2018 Time seen by provider: 08:30 Admisison Dx: (1) Myopathy The preadmission screen agrees with the post admission assessment that the patient is a good candidate for inpatient rehabilitation. The patient will have a comprehensive program of inpatient rehabilitation with a goal of maximizing level of functional independence prior to discharge home with family. The patient will have PT/OT ninety minutes per day, each discipline, five days a week for gait, strengthening, conditioning, balance, ADLs, any p atient/family/caregiver training as necessary. Speech therapy to do cognitive assessment and treat as indicated. Rehabilitation nursing to assist with bowel, bladder, skin, wound care, medication administration, pain management. Monitor And Storage Bin Tender to assist with discharge planning, community reentry. SCD's for DVT prophylaxis. He appears to be well motivated to participate in three hours of therapy a day. He should be able to tolerate three hours of therapy a day from a medical standpoint. He should benefit from the three hours of therapy a day. He has a reasonable discharge plan, reasonable discharge rehabilitation goals and a supportive family. He has various comorbidities that need to be closely monitored with medications and treatments adjusted on a daily basis as needed. These include: see list Barriers to discharge for this patient who had been independent prior to this are for him to be modified independent to supervision for ADLs and mobility skills prior to discharge home with family, so as to lessen the burden of the caregivers. Risks for this patient include: 1. Fall 2. Fracture 3. DVT 4. Pulmonary embolism 5. Wound infection 6. Skin breakdown 7. Contractures 8. Poorly controlled pain 9. Urinary retention 10. UTI 11. Respiratory infection 12. Aspiration Estimated Length of Stay: 10 days Prognosis: Rehab prognosis appears good for goal of discharge home with family modified independent to supervision for ADLs and mobility skills. SANDRA VILLAGOMEZ DO Dec 10, 2018 08:03
[2018-12-10 08:25] VITALS: BP 167/79
[2018-12-10] MEDS: APIXABAN 5 MG (ELIQUIS) TABLET PO SCH (08:26)
[2018-12-10] MEDS: ETODOLAC 300 MG (LODINE) CAP PO SCH (08:26)
[2018-12-10] MEDS: AMIODARONE 200 MG (CORDARONE) TAB PO SCH (08:26)
--- NOTE | 2018-12-10 08:43 | Pulmonary Progress Note ---
Sepsis Event Evaluation Height, Weight, BMI Height: 5'11" Weight: 260lbs. 0.0oz. [id number]; 34.62 BMI Method:Stated Exam Exam Vital Signs Date Time Temp Pulse Resp B/P (MAP) Pulse Ox O2 Delivery O2 Flow Rate FiO2 12/10/18 08:25 67 167/79 (108) 12/10/18 07:00 66 12/10/18 06:32 85 Nasal Cannula 4.00 12/10/18 05:25 72 195/79 (117) 12/10/18 04:20 74 219/74 (122) 12/10/18 03:26 36.2 73 21 183/77 (112) 91 Nasal Cannula 3.00 12/10/18 02:32 77 213/123 (153) 12/10/18 02:10 77 228/108 (148) 12/10/18 00:58 73 12/09/18 21:40 94 Nasal Cannula 4.00 12/09/18 20:23 Nasal Cannula 3.00 12/09/18 19:00 68 12/09/18 18:59 91 Nasal Cannula 3.00 12/09/18 17:03 36.0 65 16 173/69 (103) 92 Nasal Cannula 3.00 12/09/18 14:55 Nasal Cannula 3.00 92 12/09/18 14:44 89 Nasal Cannula 2.00 12/09/18 12:27 65 12/09/18 11:47 37.4 69 20 153/95 90 Nasal Cannula 2.00 I & O 12/10/18 07:00 Intake Total 1190 ml Balance 1190 ml Height & Weight Height: 5'11" Weight: 260lbs. 0.0oz. 117.706004oy; 34.62 BMI Method:Stated Assessment/Plan Assessment/Plan Worsening SOB with hypoxia -Check labs -Check CXR -SVN -start prednisone 40mg daily s/p Pneumonia with sepsis Bacteremia with strep -s/p Zosyn Afib LLL cellulitis - IDDM Chronic anemia DEJA SMITH DO Dec 10, 2018 08:43
--- NOTE | 2018-12-10 08:54 | ST Cognitive Linguistic Eval ---
Speech Evaluation-General Medical Diagnosis L leg cellulitis, pneumonia, sepsis Onset Date: Dec 04, 2018 Therapy Diagnosis Therapy Diagnosis: Cognitive-communication Precautions Precautions: Fall Precautions/Isolations: Standard Precautions Referral Referring Physician: Dr. Villagomez Reason for Referral: Evaluation/Treatment Medical History Pertinent Medical History: CAD, DM, HTN, Neuropathy CAD, DM, HTN, Neuropathy Current History L leg cellulitis, pneumonia, sepsis Reviewed History: Yes Social History Home: Single Level Current Living Status: Spouse Speech PLF-Current Status Prior Level of Function Patient lived in the home with his . He was independent for most of his daily needs. Subjective Patient was pleasant and cooperative with the cognitive assessment. Language Eval: Auditory Comprehends Simple Yes/No Ques: Functional Indent/Objects Multiple [place]: Functional Ident/Pics in Multiple [place]: Functional Follows 1-Step Commands: Functional Follows Complex Directions: Functional Follows General Conversations: Functional Language Eval: Verbal Language Completes Spontaneous Greeting: Functional Produces Auto, Serial Info: Functional Imitates Simple Words/Phrases: Functional Word Finding: Functional Requests Basic Needs: Functional States Basic Personal Info: Functional Expresses Complex Ideas: Functional Objective Cognitive Domain Attention: WNL Memory: Mild Problem Solving: Functional Executive Functions: WNL Visuospatial Skills: WNL Composite Severity Rating: WNL Clock Drawing Severity Rating: WNL Objective Formal/Standardized Tests [facility] Mental Status ([facility]) Results 27/30 which is within normal range of function Oral Motor/Speech Production Within Functional Limits Impression Patient is a pleasant 63 year old man who was admitted to the ARU for strengthening prior to returning home. He was given the SLUMS with a score of 27/30. His score is within the normal range. At this time he does not require skilled ST services. Communication/Social Cognition Comprehension: 7 Expression: 7 Social Interaction: 7 Problem Solvin Memory: 6 Speech Patient Assess Expression of Ideas/Wants: Expression (4) Understanding Verbal Content: Understands (4) Brief Interview-Mental Status: Yes Repetition of Three Words: Three (3) Temporal Orientation: Year: Correct (3) Temporal Orientation: Month: Accurate within 5 days(2) Temporal Orientation: Day: Correct (1) Recall : Wear to say "Sock": Yes, no cue required (2) Recall : Color: Yes, after cueing (1) Recall : Bed: No, could not recall (0) Memory/Recall Ability: Current season, Location of own room, That he or she is in a hsp/hsp unit Speech-Plan Patient/Family Goals Patient/Family Goals: Patient plans on returning home post rehab. Treatment Plan Speech Therapy Treatment Plan: Discontinue ST Patient does not require skilled ST at this time. Treatment Duration: Dec 10, 2018 Frequency: 1 time per week Estimated Hrs Per Day: .25 hour per day Rehab Potential: Fair Barriers to Learning: None identified Pt/Family Agrees to Plan: Yes Safety Risks/Education Teaching Recipient: Patient Teaching Methods: Discussion Response to Teaching: Verbalize Understanding Education Topics Provided: Safety within his room Time Speech Therapy Time In: 08:30 Speech Therapy Time Out: 08:45 Total Billed Time: 15 Billed Treatment Time 1, GEOVANNY Le Dec 10, 2018 08:54
[2018-12-10] MEDS ORDERED: FUROSEMIDE 40 MG/4 ML INJ (LASIX) IVP ONE (09:00)
[2018-12-10] MEDS ORDERED: meTOproloL SUCCINATE 50 MG (TOPROL XL) TAB PO SCH (09:00)
[2018-12-10] MEDS ORDERED: CANAGLIFLOZIN 100 MG PO SCH (09:00)
[2018-12-10] MEDS ORDERED: ASPIRIN 81 MG CHEW (CHILDREN'S ASA) PO SCH (09:00)
--- NOTE | 2018-12-10 09:03 | Diagnostic Imaging Report ---
Indication: Shortness of air. Time of exam: 8:51 AM Correlation is made with prior chest from one day earlier. The heart is enlarged. Central congestive changes persist. There is no effusion or pneumothorax identified. Impression: No change in congestive changes when compared to examination one day earlier. Dictated by: Dictated on workstation # [id number]
[2018-12-10 09:04] LABS: BASOPHILS # (AUTO) 0.1 10^3/uL (0.0-0.1); BASOPHILS % (AUTO) 0 % (0-10); EOSINOPHILS # (AUTO) 0.3 10^3/uL (0.0-0.3); EOSINOPHILS % (AUTO) 3 % (0-10); HEMATOCRIT 32 % (40-54); HEMOGLOBIN 10.2 G/DL (13.3-17.7); LYMPHOCYTES # (AUTO) 0.9 X 10^3 (1.0-4.0); LYMPHOCYTES % (AUTO) 8 % (12-44); MEAN CORPUSCULAR HEMOGLOBIN 30 PG (25-34); MEAN CORPUSCULAR HGB CONC 32 G/DL (32-36); MEAN CORPUSCULAR VOLUME 94 FL (80-99); MONOCYTES % (AUTO) 8 % (0-12); NEUTROPHILS # (AUTO) 9.4 X 10^3 (1.8-7.8); NEUTROPHILS % (AUTO) 81 % (42-75); PLATELET COUNT 252 10^3/uL (130-400); RED CELL DISTRIBUTION WIDTH 14.2 % (10.0-14.5); WHITE BLOOD COUNT 11.5 10^3/uL (4.3-11.0)
[2018-12-10 09:24] LABS: ALBUMIN 3.5 GM/DL (3.2-4.5); BILIRUBIN,TOTAL 0.4 MG/DL (0.1-1.0); CALCIUM 8.7 MG/DL (8.5-10.1); CREATININE SERUM 1.64 MG/DL (0.60-1.30); MAGNESIUM 2.4 MG/DL (1.6-2.4); PHOSPHORUS 3.9 MG/DL (2.3-4.7); POTASSIUM 5.5 MMOL/L (3.6-5.0); TOTAL PROTEIN 7.2 GM/DL (6.4-8.2)
--- NOTE | 2018-12-10 09:55 | Physical Therapy Daily Note ---
PT Daily Note-Current Subjective Patient in recliner pre tx, agrees to PT reluctantly, no complaints of pain. Patient states that he is very tired because he had trouble sleeping last night. Appearance Patient in recliner post tx with nurse call, phone, tray, all needs met. Mental Status Patient Orientation: Person, Place, Situation Attachments: Oxygen Transfers Therapy Code Descriptions/Definitions Functional White Measure: 0=Not Assessed/NA 4=Minimal Assistance 1=Total Assistance 5=Supervision or Setup 2=Maximal Assistance 6=Modified [place] 3=Moderate Assistance 7=Complete [place] Therapy Quality Codes: 6 Independent with activity with or without an assistive device 5 Patient requires set up or clean up by helper. Patient completes activity by themselves 4 Supervision or touching assist (CGA). [place] provide cues , steadying assist 3 The helper provides less than half the effort to complete the activity 2 The helper provides more than half the effort to complete the activity 1 Dependent. The helper does all the effort to complete an activity 7 Patient refused to complete or attempt activity 9 The patient did not perform the activity before the current illness or injury 88 Not attempted due to Medical conditions or safety concerns Transfers (B, C, W/C) (FIM): 6 Sit to/from Stand: 6 Bed to/from Chair: 6 Gait Training Gait (FIM): 5 Distance: 75'x4 Gait Level of Assist: 5 Gait Persons Needed: 1 Gait Assistive Device: None slow but steady ambulation, fatigues quickly, SOB Exercises Seated Therapy Exercises: Ankle pumps, Hip flexion Seated Reps: 20 Standing: Hamstring curls, Heel/toe raises, 3 way Ex=Flex, Abd, Ext (not extension), Marching, Mini squats Standing Reps: 15 LAQ alternating for 5 min Treatments LE exercise, patient was toileted once with SBA, ambulation, transfers Assessment Current Status: Poor Progress No change in mobility, patient fatigues very easily and gets SOB, needs frequ ent, significant rest breaks. PT Short Term Goals Short Term Goals Time Frame: Dec 16, 2018 Transfers (B,C,W/C) (FIM): 6 Gait (FIM): 2 Gait Distance Comment: 100' Gait Level of Assist: 5 Gait Assistive Device: None PT Casing Grader Goals Intermediate Goals PT Casing Grader Goals Time Frame: Dec 30, 2018 Transfers (B,C,W/C) (FIM): 7 Sit to Lying (QC): 6 Lying-Sitting on Side/Bed(QC): 6 Sit to Stand (QC): 6 Rollin Roll Left to Right (QC): 6 Chair/Icc-iy-Ismhj Xfer(QC): 6 Car Transfer (QC): 6 Gait (FIM): 7 Distance: 150' Walk 10 feet (QC): 6 Walk 10ft-Uneven Surface(QC): 6 Walk 50ft with 2 Turns (QC): 6 Walk 150 ft (QC): 6 Gait Level of Assist: 7 Gait Assistive Device: None Stairs (FIM): 2 # of Steps: 4 1 Step (curb) (QC): 6 4 Steps (QC): 6 12 Steps (QC): 6 Stairs Level Of Assist: 6 PT Plan Problem List Problem List: Activity Tolerance, Functional Strength, Safety, Balance, Gait, Transfer, Bed Mobility Treatment/Plan Treatment Plan: Continue Plan of Care Treatment Plan: Bed Mobility, Education, Functional Activity Johanna, Functional Strength, Group Therapy, Gait, Safety, Therapeutic Exercise, Transfers Treatment Duration: Dec 30, 2018 Frequency: At least 5 of 7 days/Wk (IRF) Estimated Hrs Per Day: 1.5 hours per day Patient and/or Family Agrees t: Yes Safety Risks/Education Patient Education: Gait Training, Transfer Techniques, Correct Positioning, Safety Issues Teaching Recipient: Patient Teaching Methods: Demonstration, Discussion Response to Teaching: Reinforcement Needed Time/GCodes Time In: 0900 Time Out: 1000 Total Billed Treatment Time: 60 Total Billed Treatment 1 visit EX 30' GT 20' FA 10' MARINO VEGA PT Dec 10, 2018 09:55
[2018-12-10 10:11] LABS: ABG BASE EXCESS -0.1 MMOL/L (-2.5-2.5); ABG OXYGEN SATURATION 93 % (94-100); ABG PCO2 68 MMHG (35-45); ABG PO2 71 MMHG (79-93); ABG TCO2 28.9 MMOL/L (21.0-31.0)
[2018-12-10 10:12] LABS: ALLENS TEST YES-POS
[2018-12-10 10:13] LABS: INSPIRED O2 5L; PATIENT TEMP 37.1; VENTILATOR NO
[2018-12-10 10:14] LABS: ABG PH 7.22 (7.37-7.43)
[2018-12-10] MEDS ORDERED: methylPREDNISolone 40 MG/ML (Solu-MEDROL) VIAL IV SCH (10:30)
--- NOTE | 2018-12-10 10:38 | Cardiology Progress Note ---
Subjective Date Seen by Provider: Dec 10, 2018 Time Seen by Provider: 10:35 Subjective/Events-last exam Patient is sitting in a chair, being fitted for C Pap, and respiratory failure, having dyspnea Review of Systems General: No Chills, No Night Sweats; Fatigue, Malaise; No Appetite, No Other HEENT: No Head Aches, No Visual Changes, No Eye Pain, No Ear Pain, No Dysp hasia, No Sinus Congestion, No Post Nasal Drip, No Sore Throat, No Other Pulmonary: Dyspnea; No Cough, No Pleuritic Chest Pain, No Other Cardiovascular: Paroxysmal Noc. Dyspnea; No: Chest Pain, Palpitations, Orthopnea, Edema, Lt Headedness, Other Objective-Cardiology Exam Last Set of Vital Signs Vital Signs 12/09/18 12/10/18 12/10/18 12/10/18 14:55 03:26 08:25 10:03 Temp 36.2 Pulse 67 Resp 21 B/P (MAP) 167/79 (108) Pulse Ox 92 O2 Delivery Nasal Cannula O2 Flow Rate 5.00 FiO2 92 Capillary Refill : I&O Intake and Output 12/10/18 00:00 Intake Total 440 ml Balance 440 ml Intake Oral 440 ml # Voids 2 Daily Weight Change No General: Alert, Oriented X3 HEENT: Atraumatic Neck: Supple Lungs: Other (bilateral rhonchi) Heart: Normal S1, Normal S2 Abdomen: Normal Bowel Sounds Extremities: No Clubbing Neuro: Normal Speech Results Lab Laboratory Tests 12/10/18 08:55 A/P-Cardiology Assessment/Plan Acute respiratory failure, acute exacerbation of COPD, managed by Dr. Contreras, currently on Cipro Pneumonia recovering, managed by primary care team Cellulitis, receiving antibiotics. Acute on chronic renal failure, continue to monitor renal function New-onset atrial fibrillation, back to sinus rhythm, change Cardizem to long- acting and monitor tolerance and response Morbid obesity, obesity hypoventilation syndrome and acute respiratory failure. Managed by Dr. Contreras Peripheral edema, chronic, echocardiogram showed normal left ventricular size and function with ejection fraction 55-60 percent, left atrial dilatation measuring 6.1 cm, mild mitral regurgitation, pulmonary hypertension with PA pressure 40-50 mmHg. Continue to monitor Coronary artery disease, history of cardiac catheterization done in 2014 showing coronary ectasia with slow flow, no significant obstructive disease. Conservative management Hypertension, elevated blood pressure, currently in respiratory failure, continue to monitor blood pressure Hyperlipidemia, monitor lipids Diabetes mellitus, followed and managed by primary care physician Clinical Quality Measures DVT/VTE Risk/Contraindication: Risk Factor Score Per Nursin RFS Level Per Nursing on Admit: 4+=Very High AMI SANTACRUZ MD Dec 10, 2018 10:38 am
[2018-12-10] MEDS ORDERED: DILTIAZEM 240 MG (CARDIZEM CD) CAP PO SCH (10:45)
--- NOTE | 2018-12-10 11:00 | Individualized Plan of Care ---
Individualized Plan of Care Rehab Nursing IPOC Order Admission Date Dec 09, 2018 at 11:00 Current Orders Orders Admission Order(Inpt,Obs,Sdc) (12/09/18 10:34) Vital Signs: Per Unit Policy ( 08,16,00 (12/09/18 10:34) Resource Technician-Inpt Rehab Con (12/09/18 10:34) Rehab Nursing Orders-Ipoc (12/09/18 10:34) Physical Therapy Rehab Orders (12/09/18 10:34) Occupational Therapy Rehab Ord (12/09/18 10:34) Speech Therapy Rehab Orders (12/09/18 10:34) Intake & Output 06,14,22 (12/09/18 10:34) Precautions (Aru) (12/09/18 10:34) Weekly Weight WEEK (12/09/18 10:34) Rehab-Intensity Of Therapy (12/09/18 10:34) Initiate Admission Nursing Pro .admission (12/09/18 10:34) Initiate Admission Nursing Pro .admission (12/09/18 10:34) Heart Healthy (12/09/18 Lunch) Code/Resuscitation (12/09/18 11:33) Oxygen-Administer (12/09/18 11:33) Telemetry (12/09/18 11:33) Therapeutic Multivitamin Tab (Vitamins, (12/10/18 07:00) Acetaminophen Tablet (Tylenol Tablet) (12/09/18 11:45) Albuterol/Ipra Inhalation Soln (Duoneb I (12/09/18 14:00) Amiodarone Tablet (Cordarone Tablet) (12/09/18 21:00) Apixaban Tablet (Eliquis Tablet) (12/09/18 21:00) Aspirin Chewable Tablet (Baby Aspirin Ch (12/10/18 09:00) Canagliflozin (Non-Formulary) (Invokana (12/10/18 09:00) Diltiazem Tablet (Cardizem Tablet) (12/09/18 12:00) Etodolac Capsule/Tablet (Lodine Capsule/ (12/09/18 21:00) Raymond 3 Capsule (Fish Oil Capsule) (12/09/18 17:00) Simvastatin Tablet (Zocor Tablet) (12/09/18 21:00) Sodium Chloride Flush (Catheter Flush Sy (12/09/18 14:00) Insulin Determir (Per Unit) (Levemir (Pe (12/09/18 21:00) Metoprolol Succinate (Xl) Tab (Toprol Xl (12/10/18 09:00) Consult Cardiology (12/09/18 11:33) Consult Physician (12/09/18 11:33) Mat Initiate Protocol (12/09/18 11:33) Oxygen Delivery Set Up (12/09/18 11:33) Svn Small Volume Nebulizer (12/09/18 11:33) Insulin Aspart (Novolog) (Novolog (Charg (12/09/18 16:00) Telemetry Nursing Assessment ( (12/09/18 11:33) Svn Small Volume Nebulizer (12/09/18 11:33) Cho 60g/M 3snack (16-2000 Bob) (12/09/18 Lunch) Patient Visit (12/09/18 ) Pt Eval Moderate Complexity (12/09/18 ) Functional Activities, Ea 15 (12/09/18 ) Ambulate 08,12,20 (12/09/18 12:14) Sequential Compression Device Q4H (12/09/18 12:14) Dvt/Vte Risk - Notifiy Physici Q4H (12/09/18 12:14) Patient Visit (12/09/18 ) Functional Activities, Ea 15 (12/09/18 ) Metoprolol Succinate (Xl) Tab (Toprol Xl (12/10/18 02:28) Clonidine Tablet (Catapres Tablet) (12/10/18 04:15) Chest 1 View, Ap/Pa Only (12/10/18 08:38) BNP (12/10/18 08:38) Comprehensive Metabolic Panel (12/10/18 08:38) Cbc With Automated Diff (12/10/18 08:38) Cbc With Automated Diff (12/11/18 05:00) Magnesium (12/10/18 08:38) Phosphorus (12/10/18 08:38) Prednisone Tablet (Deltasone Tablet) (12/11/18 07:00) Furosemide Injection (Lasix Injection) (12/10/18 09:00) Arterial Blood Gas (12/10/18 10:02) Arterial Blood Draw (12/10/18 ) Arterial Blood Gas (12/10/18 15:00) Lactic Acid Analyzer (12/11/18 06:00) Methylprednisolone Sod Succ (Solu-Medrol (12/10/18 10:30) Bipap (Bilevel) Set Up (12/10/18 10:35) Diltiazem Cd 24 Hr Capsule (Cardizem Cd (12/10/18 10:45) Consult Wound Care Physician (12/10/18 11:04) Patient Visit (12/10/18 ) Speech Sound Lang Comp (12/10/18 ) Transfer To Intensive Care Uni (12/10/18 11:19) Patient Visit (12/10/18 ) Exercise Therap, Ea 15 Min (12/10/18 ) Gait Training, Ea 15 Min (12/10/18 ) Functional Activities, Ea 15 (12/10/18 ) Rehab Nursing Orders: Ongoing Assess. of Function Status Intensity of Therapy to be met Patient to be seen: Min.3h per day/5 of 7d PT IPOC Problem List: Activity Tolerance, Functional Strength, Safety, Balance, Gait, Transfer, Bed Mobility Bed Mobility, Education, Functional Activity Johanna, Functional Strength, Group Therapy, Gait, Safety, Therapeutic Exercise, Transfers Treatment Duration: Dec 30, 2018 Frequency: At least 5 of 7 days/Wk (IRF) Estimated Hrs Per Day: 1.5 hours per day OT IPOC Problems: Decreased Activ Tolerance, Impaired Self-Care Skills OT Treatment, Training and Edu: Yes Treatment Duration: Dec 23, 2018 Frequency: 5 times per week Estimated Hrs Per Day: [address] IPOC Speech Therapy Treatment Plan: Discontinue ST Treatment Duration: Dec 10, 2018 Frequency: 1 time per week Estimated Hrs Per Day: .25 hour per day Resource Technician/Case Mgmt Resource Technician/Case Managemen: Discharge Planning Dietitian/Community Health Advisor Dietitian/Community Health Advisor to monitor nutritional status and make changes and/or recommendations as needed and work with speech pathology on dietary upgrades as the occur. Physician IPOC Medical Issues being managed closely and that require the 24 hour availability of a physician: Brief Synthesis of Preadmission Screen, Post-Admission Evaluation, and Therapy Evaluations: YARIEL BUI DO Dec 10, 2018 11:00
--- NOTE | 2018-12-10 11:30 | NUR ---
Transferred patient to ICU for respiratory distress per Physician orders. Patient had a critical pH of 7.22, which was reported to Dr. Simon. New orders obtained, including order for BiPap. Patient tolerated BiPap well. Report called to KORY Paredes and patient transferred with aide of Respitory Therapy, Landscape Drafter, and student nurse.
--- NOTE | 2018-12-10 12:02 | Occupational Ther Daily Note ---
OT Current Status-Daily Note Subjective Pt seen in recliner chair, RT present. Pt states no pain on this date, states "Short of breath." Pt agreeable to OT tx session. Pt placed on BiPAP at start of session, pt to complete therapeutic activities while in room. Mental Status/Objective Patient Orientation: Person, Place, Time, Situation, Normal For Age Therapy Code Descriptions/Definitions Functional [place] Measure: 0=Not Assessed/NA 4=Minimal Assistance 1=Total Assistance 5=Supervision or Setup 2=Maximal Assistance 6=Modified [place] 3=Moderate Assistance 7=Complete [place] Attachments: Oxygen (5L) ADL-Treatment Therapy Code Descriptions/Definitions Functional [place] Measure: 0=Not Assessed/NA 4=Minimal Assistance 1=Total Assistance 5=Supervision or Setup 2=Maximal Assistance 6=Modified [place] 3=Moderate Assistance 7=Complete [place] Therapy Quality Codes: 6 Independent with activity with or without an assistive device 5 Patient requires set up or clean up by helper. Patient completes activity by themselves 4 Supervision or touching assist (CGA). [place] provide cues , steadying assist 3 The helper provides less than half the effort to complete the activity 2 The helper provides more than half the effort to complete the activity 1 Dependent. The helper does all the effort to complete an activity 7 Patient refused to complete or attempt activity 9 The patient did not perform the activity before the current illness or injury 88 Not attempted due to Medical conditions or safety concerns Eating (FIM): 7 (Pt completes eating prior to BiPAP, pt able to complete all feeding activities with IND.) Eating (QC): 6 Grooming (FIM): 6 (Pt wipes face in chair.) Lower Body Dressing (FIM): 6 (Pt utilizes sock aide for bilateral sock donning with increased time for in-hand manipulation. ) Lower Body Dressing (QC): 6 On/Off Footwear (QC): 6 (Use of sock aide.) Transfers (B, C, W/C) (FIM): 5 (SBA during sit to stand. ) Other Treatment Pt seen in room. Pt completes ADL tasks in chair. Pt not able to wear glasses during activities due to BiPAP mask. Pt completes cognitive task while seated, has difficulty with color discrimination due to not wearing glasses, pt moves black metal checker piece onto separate black pieces. Self-corrects upon sensation of other piece. Pt completes standing activity for 8 minutes before request for break. Pt educated on pursed lip breathing, as pt seen breathing through mouth continuously with short breaths. Pt cognitively asserts pursed lip breathing, unable to maintain when reinitiating checkers game. Pt requests to sit after 8 minutes, pt stands an additional 10 minutes to complete game. Pt demonstrates good fine motor and cognitive abilities. Pt does not complain of SOB during activities. Pt's nurse states moving to ICU to medically monitor. Pt agreeable, no signs of anxiety, denies need to call . Pt sits in recliner chair, call light in reach, all needs met. Education OT Patient Education: Correct positioning, Exercise program, Modified ADL techniques, Purpose of tx/functional activities, Reviewed precautions, Rehab process, Safety issues, Use of adapted equipment Teaching Recipient: Patient Teaching Methods: Demonstration, Discussion Response to Teaching: Verbalize Understanding, Return Demonstration OT Short Term Goals Short Term Goals Bathing(FIM): 5 Upper Body Dressing(FIM): 5 Lower Body Dressing(FIM): 5 Transfers (B,C,W/C) (FIM): 6 Toilet/Commode Transfer(FIM): 5 Additional Short Term Goals: 1-Demonstrate ADL Tasks, 2-Verbalize Understanding, 3-ImproveStrength/Johanna 1=Demonstrate adherence to instructed precautions during ADL tasks. 2=Patient will verbalize/demonstrate understanding of assistive devices/ modifications for ADL. 3=Patient will improve strength/tolerance for activity to enable patient to perform ADL's. OT Orchard Worker Goals Orchard Worker Goals Eating (FIM): 7 Eating (QC): 6 Groomin Oral Hygiene (QC): 7 Bathing(FIM): 6 Shower/Bathe Self (QC): 6 Upper Body Dressing(FIM): 7 Upper Body Dressing (QC): 6 Lower Body Dressing(FIM): 6 Lower Body Dressing (QC): 6 On/Off Footwear (QC): 6 Toileting(FIM): 6 Toileting Hygiene (QC): 7 Transfers (B,C,W/C) (FIM): 7 Toilet/Commode Transfer(FIM): 7 Toilet/Commode Transfer (QC): 6 Tub Transfer(FIM): 6 Shower Transfer(FIM): 6 Additional Goals: 1-Demonstrate ADL Tasks, 2-Verbalize Understanding, 3- ImproveStrength/Johanna 1=Demonstrate adherence to instructed precautions during ADL tasks. 2=Patient will verbalize/demonstrate understanding of assistive devices/modifications for ADL. 3=Patient will improve strength/tolerance for activity to enable patient to perform ADL's. OT Education/Plan Problem List/Assessment Assessment: Decreased Activ Tolerance, Edema, Impaired I ADL's, Impaired Self- Care Skills Discharge Recommendations Plan/Recommendations: Continue POC Treatment Plan/Plan of Care Treatment,Training & Education: Yes Patient would benefit from OT for education, treatment and training to promote independence in ADL's, mobility, safety and/or upper extremity function for ADL's. Treatment Duration: Dec 23, 2018 Frequency: 5 times per week Estimated Hrs Per Day: 1 hour per day Agreement: Yes Rehab Potential: Fair Time/GCodes Start Time: 10:20 Stop Time: 11:15 Total Time Billed (hr/min): 55 Billed Treatment Time 1 FAx4 (55) CHRIS DELGADILLO OTR Dec 10, 2018 12:02
--- NOTE | 2018-12-10 13:26 | NUR ---
Attempted to meet with patient to complete initial assessment; however, this was impossible as patient was transferred to ICU for respiratory distress. Will attempt to re-assess, as appropriate.
[2018-12-11 02:50] LABS: BASOPHILS % (AUTO) 0 % (0-10); EOSINOPHILS % (AUTO) 0 % (0-10); HEMATOCRIT 30 % (40-54); HEMOGLOBIN 9.6 G/DL (13.3-17.7); LYMPHOCYTES # (AUTO) 0.6 X 10^3 (1.0-4.0); LYMPHOCYTES % (AUTO) 7 % (12-44); MEAN CORPUSCULAR HEMOGLOBIN 30 PG (25-34); MEAN CORPUSCULAR HGB CONC 32 G/DL (32-36); MEAN CORPUSCULAR VOLUME 93 FL (80-99); MEAN PLATELET VOLUME 9.5 FL (7.4-10.4); MONOCYTES # (AUTO) 0.6 X 10^3 (0.0-1.0); MONOCYTES % (AUTO) 6 % (0-12); NEUTROPHILS # (AUTO) 7.7 X 10^3 (1.8-7.8); NEUTROPHILS % (AUTO) 87 % (42-75); PLATELET COUNT 282 10^3/uL (130-400); WHITE BLOOD COUNT 8.9 10^3/uL (4.3-11.0)
[2018-12-11] MEDS ORDERED: predniSONE 20 MG TAB PO SCH (07:00)
--- NOTE | 2018-12-13 10:07 | Discharge Summary ---
Diagnosis/Chief Complaint Date of Admission Dec 09, 2018 at 11:00 Date of Discharge 12/10/18 Discharge Diagnosis Assessment: Acute on chronic dyspnea with debility for myopathy New onset atrial fibrillation with rapid ventricular response appreciate cardiology consultation Suspicion for obesity hypoventilation syndrome consult and Dr. Contreras Lower extremity edema applying Amari wraps Plan: Wide Amari wraps Check ABG Monitor pain (1) Myopathy (2) Diabetes mellitus with hyperglycemia Status: Acute (3) Cellulitis of left lower extremity Status: Acute (4) Dehydration Status: Acute (5) Hyperkalemia Status: Acute (6) Acute renal failure Status: Acute (7) Back pain Status: Acute (8) Abdominal pain Status: Acute (9) Chest pain Status: Acute (10) Diabetes (11) Hypoxia Status: Acute (12) Atrial fibrillation with rapid ventricular response Status: Acute Discharge Summary Discharge Physical Examination Allergies: Coded Allergies: NKANo Known Allergies (Verified Allergy, Unknown, 05/15/05) Vitals & I&Os Vital Signs Date Time Temp Pulse Resp B/P (MAP) Pulse Ox O2 Delivery O2 Flow Rate FiO2 12/10/18 10:33 69 38 98 50.00 12/10/18 10:03 Nasal Cannula 12/10/18 08:25 167/79 (108) 12/10/18 03:26 36.2 12/09/18 14:55 92 Hospital Course Was the Problem List Reviewed?: Yes Hospital course: Patient had a brief hospital course after he was moved from inpatient rehabilitation after 1 day due to respiratory insufficiency and hypercapnia. Patient was placed in the ICU maintained on BiPAP with close monitoring from cardiology and pulmonology. Dr. Miner continue to monitor lymphedema. Patient dramatically improved with the use of BiPAP and Vapotherm and then nasal cannula and did very well at night on the BiPAP. Overall he did well was able to go back to inpatient rehabilitation for final stabilization of his medical problems along with his breathing machinery in preparation of discharge. Labs (last 24 hrs) Laboratory Tests 12/09/18 16:33: Glucometer 204H 12/09/18 20:05: Glucometer 285H 12/10/18 05:22: Glucometer 201H 12/10/18 08:55: White Blood Count 11.5H, Red Blood Count 3.42L, Hemoglobin 10.2L, Hematocrit 32L , Mean Corpuscular Volume 94, Mean Corpuscular Hemoglobin 30, Mean Corpuscular Hemoglobin Concent 32, Red Cell Distribution Width 14.2, Platelet Count 252, Mean Platelet Volume 9.0, Neutrophils (%) (Auto) 81H, Lymphocytes (%) (Auto) 8L, Monocytes (%) (Auto) 8, Eosinophils (%) (Auto) 3, Basophils (%) (Auto) 0, Neutrophils # (Auto) 9.4H, Lymphocytes # (Auto) 0.9L, Monocytes # (Auto) 1.0, Eosinophils # (Auto) 0.3, Basophils # (Auto) 0.1, Sodium Level 139, Potassium Level 5.5H, Chloride Level 106, Carbon Dioxide Level 27, Anion Gap 6, Blood Urea Nitrogen 27H, Creatinine 1.64H, Estimat Glomerular Filtration Rate 43, BUN/Creatinine Ratio 16, Glucose Level 182H, Calcium Level 8.7, Corrected Calcium 9.1, Phosphorus Level 3.9, Magnesium Level 2.4, Total Bilirubin 0.4, Aspartate Amino Transf (AST/SGOT) 26, Alanine Aminotransferase (ALT/SGPT) 56H, Alkaline Phosphatase 60, B-Type Natriuretic Peptide 228.9H, Total Protein 7.2, Albumin 3.5 12/10/18 10:02: Blood Gas Puncture Site L RAD, Blood Gas Patient Temperature 37.1, Arterial Blood pH 7.22*L, Arterial Blood Partial Pressure CO2 68H, Arterial Blood Partial Pressure O2 71L, Arterial Blood HCO3 27, Arterial Blood Total CO2 28.9, Arterial Blood Oxygen Saturation 93L, Arterial Blood Base Excess -0.1, Gurwinder Test YES- POS, Blood Gas Ventilator Setting NO, Blood Gas Inspired Oxygen 5L 12/10/18 16:50: Glucometer 257H 12/11/18 02:43: White Blood Count 8.9, Red Blood Count 3.22L, Hemoglobin 9.6L, Hematocrit 30L, Mean Corpuscular Volume 93, Mean Corpuscular Hemoglobin 30, Mean Corpuscular Hemoglobin Concent 32, Red Cell Distribution Width 14.0, Platelet Count 282, Mean Platelet Volume 9.5, Neutrophils (%) (Auto) 87H, Lymphocytes (%) (Auto) 7L, Monocytes (%) (Auto) 6, Eosinophils (%) (Auto) 0, Basophils (%) (Auto) 0, Neutrophils # (Auto) 7.7, Lymphocytes # (Auto) 0.6L, Monocytes # (Auto) 0.6, Eosinophils # (Auto) 0.0, Basophils # (Auto) 0.0, Lactic Acid Level 0.76 Pending Labs Laboratory Tests 12/09/18 16:33: Glucometer 204 12/09/18 20:05: Glucometer 285 12/10/18 05:22: Glucometer 201 12/10/18 08:55: White Blood Count 11.5, Red Blood Count 3.42, Hemoglobin 10.2, Hematocrit 32, Mean Corpuscular Volume 94, Mean Corpuscular Hemoglobin 30, Mean Corpuscular Hemoglobin Concent 32, Red Cell Distribution Width 14.2, Platelet Count 252, Mean Platelet Volume 9.0, Neutrophils (%) (Auto) 81, Lymphocytes (%) (Auto) 8, Monocytes (%) (Auto) 8, Eosinophils (%) (Auto) 3, Basophils (%) (Auto) 0, Neutrophils # (Auto) 9.4, Lymphocytes # (Auto) 0.9, Monocytes # (Auto) 1.0, Eosinophils # (Auto) 0.3, Basophils # (Auto) 0.1, Sodium Level 139, Potassium Level 5.5, Chloride Level 106, Carbon Dioxide Level 27, Anion Gap 6, Blood Urea Nitrogen 27, Creatinine 1.64, Estimat Glomerular Filtration Rate 43, BUN/Creatinine Ratio 16, Glucose Level 182, Calcium Level 8.7, Corrected Calcium 9.1, Phosphorus Level 3.9, Magnesium Level 2.4, Total Bilirubin 0.4, Aspartate Amino Transf (AST/SGOT) 26, Alanine Aminotransferase (ALT/SGPT) 56, Alkaline Phosphatase 60, B-Type Natriuretic Peptide 228.9, Total Protein 7.2, Albumin 3.5 12/10/18 10:02: Blood Gas Puncture Site L RAD, Blood Gas Patient Temperature 37.1, Arterial Blood pH 7.22, Arterial Blood Partial Pressure CO2 68, Arterial Blood Partial Pressure O2 71, Arterial Blood HCO3 27, Arterial Blood Total CO2 28.9, Arterial Blood Oxygen Saturation 93, Arterial Blood Base Excess -0.1, Gurwinder Test YES-POS, Blood Gas Ventilator Setting NO, Blood Gas Inspired Oxygen 5L 12/10/18 16:50: Glucometer 257 12/11/18 02:43: White Blood Count 8.9, Red Blood Count 3.22, Hemoglobin 9.6, Hematocrit 30, Mean Corpuscular Volume 93, Mean Corpuscular Hemoglobin 30, Mean Corpuscular Hemoglobin Concent 32, Red Cell Distribution Width 14.0, Platelet Count 282, Mean Platelet Volume 9.5, Neutrophils (%) (Auto) 87, Lymphocytes (%) (Auto) 7, Monocytes (%) (Auto) 6, Eosinophils (%) (Auto) 0, Basophils (%) (Auto) 0, Neutrophils # (Auto) 7.7, Lymphocytes # (Auto) 0.6, Monocytes # (Auto) 0.6, Eosinophils # (Auto) 0.0, Basophils # (Auto) 0.0, Lactic Acid Level 0.76 Discharge Home Medications: Active Scripts Active Reported Atorvastatin Calcium 80 Mg Tablet 80 Mg PO DAILY Aspirin EC (Aspirin) 81 Mg Tablet.dr 81 Mg PO DAILY Invokana (Canagliflozin) 100 Mg Tablet 100 Mg PO DAILY Diclofenac Sodium 75 Mg Tablet.dr 75 Mg PO BID Metformin HCl 1,000 Mg Tablet 1,000 Mg PO BID Toprol Xl (Metoprolol Succinate) 50 Mg Tab.er.24h 50 Mg PO DAILY Fish Oil 1,000 mg Softgel (Lindsay-3/Dha/Epa/Fish Oil) 1 Each Capsule 2,000 Mg PO DAILY [Vitamin Pack] 1 Packet PO DAILY Levemir Flextouch (Insulin Detemir) 100 Unit/1 Ml Insuln.pen 80 Units SQ BID Victoza 3-Jason (Liraglutide) 0.6 Mg/0.1 Ml Pen.injctr 1.8 Mg SQ HS Novolog Flexpen (Insulin Aspart) 300 Units/3 Ml Solution 60 Units SQ 1200 Instructions to patient/family Please see electronic discharge instructions given to patient. Diagnosis/Problems Diagnosis/Problems (1) Myopathy Status: Acute Clinical Quality Measures DVT/VTE Risk/Contraindication: Risk Factor Score Per Nursin RFS Level Per Nursing on Admit: 4+=Very High YARIEL BUI DO Dec 13, 2018 10:07
--- NOTE | 2018-12-13 11:05 | Therapy Team Discharge Summary ---
Therapy Discharge Summary Discharge Recommendations Date of Discharge Dec 10, 2018 at 11:30 Physical Therapy this patient was admitted to ARU post acute hospital stay due to respiratory complications. Prior to his hospital stay, he was indep with all mobility and self care, living with his . Upon admit to ARU, he was mod indep with transfers and sBA with gait, able to go up/down a step with SBA. Treatment had focused on functional strength and mobility; however, his mobility remained unchanged due to short stay and transfer back to ICU> No goals met. DC PT due to transferred off the unit due to medical complications. Occupational Therapy Decreased Activ Tolerance, Edema, Impaired I ADL's, Impaired Self-Care Skills PT Skilled Nursing Goals Cutter Brake Lining Goals PT Cutter Brake Lining Goals Time Frame: Dec 30, 2018 Transfers (B,C,W/C) (FIM): 7 Roll Left to Right (QC): 6 Sit to Lying (QC): 6 Lying-Sitting on Side/Bed(QC): 6 Sit to Stand (QC): 6 Chair/Sgz-dg-Owuaz Xfer(QC): 6 Car Transfer (QC): 6 Gait (FIM): 7 Distance: 150' Walk 10 feet (QC): 6 Walk 10ft-Uneven Surface(QC): 6 Walk 50ft with 2 Turns (QC): 6 Walk 150 ft (QC): 6 Gait Level of Assist: 7 Gait Assistive Device: None Stairs (FIM): 2 # of Steps: 4 1 Step (curb) (QC): 6 4 Steps (QC): 6 12 Steps (QC): 6 Stairs Level Of Assist: 6 no goals met at this time; pt transferred to ICU due to change in medical status OT Cutter Brake Lining Goals Cutter Brake Lining Goals Eating (FIM): 7 Eating (QC): 6 Oral Hygiene (QC): 7 Grooming(FIM): 7 Bathing(FIM): 6 Shower/Bathe Self (QC): 6 Upper Body Dressing(FIM): 7 Upper Body Dressing (QC): 6 Lower Body Dressing(FIM): 6 Lower Body Dressing (QC): 6 On/Off Footwear (QC): 6 Toileting(FIM): 6 Toileting Hygiene (QC): 7 Transfers (B,C,W/C) (FIM): 7 Toilet/Commode Transfer(FIM): 7 Toilet/Commode Transfer (QC): 6 Tub Transfer(FIM): 6 Shower Transfer(FIM): 6 Additional Goals: 1-Demonstrate ADL Tasks, 2-Verbalize Understanding, 3- ImproveStrength/Johanna 1=Demonstrate adherence to instructed precautions during ADL tasks. 2=Patient will verbalize/demonstrate understanding of assistive devices/modifications for ADL. 3=Patient will improve strength/tolerance for activity to enable patient to perform ADL's. TERRA WITT PT Dec 13, 2018 11:05
--- NOTE | 2018-12-13 15:50 | Therapy Team Discharge Summary ---
Therapy Discharge Summary Discharge Recommendations Date of Discharge Dec 10, 2018 at 11:30 Occupational Therapy Pt was admitted to ARU post acute hospital stay due to SOB exasperations. Prior to hospital admission, pt IND with all ADL/ IADLs with use of grab bars in shower, shower chair, and commode. Pt admit FIMs: grooming 6, bathing 5, UB dress 5, LB dress 4, Toileting 6, Transfers 7, Toilet transfers 6, Shower transfer 5. Pt's plan of treatment focused on I/ADL activities, strengthening and endurance of UE, and functional mobility. Pt present in ARU 1 treatment day and increased LB dressing to FIM 6 with use of sock aide. Pt transferred to ICU due to medical complications. D/c OT services. Decreased Activ Tolerance, Edema, Impaired I ADL's, Impaired Self-Care Skills PT Manager [place] Goals Fpc Goals PT Fpc Goals Time Frame: Dec 30, 2018 Transfers (B,C,W/C) (FIM): 7 Roll Left to Right (QC): 6 Sit to Lying (QC): 6 Lying-Sitting on Side/Bed(QC): 6 Sit to Stand (QC): 6 Chair/Ymm-sb-Uyexq Xfer(QC): 6 Car Transfer (QC): 6 Gait (FIM): 7 Distance: 150' Walk 10 feet (QC): 6 Walk 10ft-Uneven Surface(QC): 6 Walk 50ft with 2 Turns (QC): 6 Walk 150 ft (QC): 6 Gait Level of Assist: 7 Gait Assistive Device: None Stairs (FIM): 2 # of Steps: 4 1 Step (curb) (QC): 6 4 Steps (QC): 6 12 Steps (QC): 6 Stairs Level Of Assist: 6 OT Manager [place] Goals Manager [place] Goals Eating (FIM): 7 Eating (QC): 6 Oral Hygiene (QC): 7 Grooming(FIM): 7 Bathing(FIM): 6 Shower/Bathe Self (QC): 6 Upper Body Dressing(FIM): 7 Upper Body Dressing (QC): 6 Lower Body Dressing(FIM): 6 Lower Body Dressing (QC): 6 On/Off Footwear (QC): 6 Toileting(FIM): 6 Toileting Hygiene (QC): 7 Transfers (B,C,W/C) (FIM): 7 Toilet/Commode Transfer(FIM): 7 Toilet/Commode Transfer (QC): 6 Tub Transfer(FIM): 6 Shower Transfer(FIM): 6 Additional Goals: 1-Demonstrate ADL Tasks, 2-Verbalize Understanding, 3- ImproveStrength/Johanna 1=Demonstrate adherence to instructed precautions during ADL tasks. 2=Patient will verbalize/demonstrate understanding of assistive devices/modifications for ADL. 3=Patient will improve strength/tolerance for activity to enable patient to perform ADL's. CHRIS DELGADILLO OTR Dec 13, 2018 15:50
== END 2018-12-10 11:30 | disposition short-term general hospital (02) | DRG 91 ==
LOC: UNDOLOA 12-10 11:30
PROVIDERS: ADMIT Internal Medicine; ATTEND Internal Medicine
DX: G72.9 Myopathy, unspecified (principal); J96.02 Acute respiratory failure with hypercapnia; J44.1 Chronic obstructive pulmonary disease with (acute) exacerbation; I48.91 Unspecified atrial fibrillation; R60.0 Localized edema; I12.9 Hypertensive chronic kidney disease with stage 1 through stage 4 chronic kidney disease, or unspecified chronic kidney disease; N18.9 Chronic kidney disease, unspecified; E66.2 Morbid (severe) obesity with alveolar hypoventilation; E11.65 Type 2 diabetes mellitus with hyperglycemia; E11.40 Type 2 diabetes mellitus with diabetic neuropathy, unspecified; I27.20 Pulmonary hypertension, unspecified; I25.10 Atherosclerotic heart disease of native coronary artery without angina pectoris; E78.5 Hyperlipidemia, unspecified; D64.9 Anemia, unspecified; I34.0 Nonrheumatic mitral (valve) insufficiency; Z68.34 Body mass index [BMI] 34.0-34.9, adult; Z79.4 Long term (current) use of insulin
CPT/HCPCS: 36415; 36600; 71045; 80053; 82805; 82962; 83605; 83735; 83880; 84100; 85025; 94640; 94660; 94760

== ENCOUNTER 2018-12-10 11:14 | Inpatient (IN) | payer MEDICARE ==
[2018-12-10] VITALS (13 sets, daily range): BP systolic 98–164; BP diastolic 45–98
[~2018-12-10] VITALS: Ht 213 cm; Wt 157.1 kg
[2018-12-10] MEDS ORDERED: PIPERACILLIN/TAZOBACTAM (BULK) 4.5 GM in NS (IVPB) 100 ML IV SCH (12:00)
[2018-12-10] MEDS ORDERED: ACETAMINOPHEN 500 MG TAB (TYLENOL) PO PRN (12:00)
[2018-12-10] MEDS ORDERED: CATHETER FLUSH 10 ML SYR IV PRN (12:30)
[2018-12-10] MEDS: DILTIAZEM 60 MG (CARDIZEM) TAB PO SCH ×2 (14:06→17:05)
[2018-12-10] MEDS: CATHETER FLUSH 10 ML SYR IV SCH ×2 (14:06→22:30)
[2018-12-10] MEDS: RT-ALBUTEROL/IPRATROPIUM 3 ML (DUONEB) VIAL INH SCH ×3 (14:09→21:53)
--- NOTE | 2018-12-10 14:34 | Occupational Therapy Eval ---
OT Evaluation-General/PLF Medical Diagnosis Admission Date Dec 10, 2018 at 11:14 Medical Diagnosis: L leg cellulitis, pneumonia, sepsis Onset Date: Dec 10, 2018 Therapy Diagnosis Therapy Diagnosis: decreased functional mobility, decreased ADL function Height/Weight Height (Feet): 5 Height (Inches): 11 Weight (Pounds): 260 Weight (Ounces): 0.0 Precautions Precautions/Isolations: Standard Precautions Safety Interventions: None Weight Bear Status Weight Bearing Restriction: Weight Bearing/Tolerated Referral Physician: Sandra Villagomez DO Referral Reason: Activity Tolerance, Self Care, Evaluation/Treatment, Strengthening/ROM Medical History Pertinent Medical History: CAD, DM, HTN, Neuropathy Additional Medical History CAD, DM, HTN, Neuropathy Current History Pt transferred to ICU from ARU. Per H&P during acute visit: "History of present illness: This is a 63-year-old white male chronically debilitated who presented to the ER with left leg cellulitis along with pneumonia and sepsis. He has a long-standing history of insulin-dependent diabetes along with CAD and patient was found to be in need of aggressive medical treatment supportive care to prevent decompensation. Dr. Florez has been consulted for the cellulitis. He has been placed on empiric antibiotics for the pneumonia and cellulitis. We'll restart home medications once reconciled." Reviewed History: Yes Social History Home: Single Level Current Living Status: Spouse Entry Into Home: Stairs With Railing Steps Into Home: 3 Steps Inside Home: 0 ADL-Prior Level of Function Therapy Code Descriptions/Definitions Functional [place] Measure: 0=Not Assessed/NA 4=Minimal Assistance 1=Total Assistance 5=Supervision or Setup 2=Maximal Assistance 6=Modified [place] 3=Moderate Assistance 7=Complete [place] Therapy Quality Codes: 6 Independent with activity with or without an assistive device 5 Patient requires set up or clean up by helper. Patient completes activity by themselves 4 Supervision or touching assist (CGA). [place] provide cues , steadying assist 3 The helper provides less than half the effort to complete the activity 2 The helper provides more than half the effort to complete the activity 1 Dependent. The helper does all the effort to complete an activity 7 Patient refused to complete or attempt activity 9 The patient did not perform the activity before the current illness or injury 88 Not attempted due to Medical conditions or safety concerns Functional Abilities and Goals: Independent: Patient completed the activities by him/herself, with or without an assistive device, with no assistance from a helper. Needed Some Help: Patient needed partial assistance from another person to complete activities. Dependent: A helper completed the activities for the patient. Unknown: Not Applicable: Self Care: Independent Functional Cognition: Independent DME/Equipment: Tall Toilet DME/Equipment Comments Pt IND without use of AE. Pt has commode placed over toilet, used for grab bars bilaterally. pt's states she can place commode in walk-in shower if needed. Grab bars within walk in shower. Occupation: retired. Drive Self: Yes OT Current Status Subjective Pt seen in recliner chair, pt on BiPAP machine. Pt states no pain. Pt's present, agreeable to OT evaluation. Pain Numeric Pain Scale: 0-No Pain Mental Status/Objective Patient Orientation: Person, Place, Time, Normal For Age Attachments: Other-See Comments (BiPAP) Current Glasses/Contacts: Yes Hearing Aids: No Dentures/Partials: No Hand Dominance: Right Upper Extremity ROM WFL all planes Upper Extremity Coordination WFL Upper Extremity Sensation UE WFL neuropathy BLE Upper Extremity Strength BUE WFL Edema: swelling noted in LE ADL-Treatment Therapy Code Descriptions/Definitions Functional [place] Measure: 0=Not Assessed/NA 4=Minimal Assistance 1=Total Assistance 5=Supervision or Setup 2=Maximal Assistance 6=Modified [place] 3=Moderate Assistance 7=Complete [place] Therapy Quality Codes: 6 Independent with activity with or without an assistive device 5 Patient requires set up or clean up by helper. Patient completes activity by themselves 4 Supervision or touching assist (CGA). [place] provide cues , steadying assi st 3 The helper provides less than half the effort to complete the activity 2 The helper provides more than half the effort to complete the activity 1 Dependent. The helper does all the effort to complete an activity 7 Patient refused to complete or attempt activity 9 The patient did not perform the activity before the current illness or injury 88 Not attempted due to Medical conditions or safety concerns Grooming (FIM): 6 (Pt able to wipe face while seated) Other Treatments Pt's present, concerned with ICU placement. Pt's educated of therapy process within ICU unit. 02 Sats at 100%, HR at 60 BPM. Pt educated on diaphoramic breathing techniques with visual- paper placed on stomach, pt able to move paper up/ down with fair accuracy. Pt demonstrated back pursed lip breathing, completes during activity, returns to mouth/shallow breathing during other activities. Pt states goals are to return home and reduce SOB. Pt left with all needs met, call light in reach, present. Education OT Patient Education: Correct positioning, Exercise program, Home exercise program, Instructions to caregiver, Purpose of tx/functional activities, Rehab process, Safety issues Teaching Recipient: Patient, Family Teaching Methods: Demonstration, Discussion Response to Teaching: Verbalize Understanding, Return Demonstration OT Short Term Goals Short Term Goals Eating(FIM): 7 Grooming(FIM): 6 Transfers (B,C,W/C) (FIM): 6 Toilet/Commode Transfer(FIM): 6 1=Demonstrate adherence to instructed precautions during ADL tasks. 2=Patient will verbalize/demonstrate understanding of assistive devices/modifications for ADL. 3=Patient will improve strength/tolerance for activity to enable patient to perform ADL's. OT [employer] Cleaner Goals [employer] Cleaner Goals Eating (FIM): 7 Grooming(FIM): 7 Bathing(FIM): 6 Upper Body Dressing(FIM): 6 Lower Body Dressing(FIM): 6 Toileting(FIM): 6 Transfers (B,C,W/C) (FIM): 7 Toilet/Commode Transfer(FIM): 6 Tub Transfer(FIM): 6 Shower Transfer(FIM): 6 Additional Goals: 1-Demonstrate ADL Tasks, 2-Verbalize Understanding, 3- ImproveStrength/Johanna 1=Demonstrate adherence to instructed precautions during ADL tasks. 2=Patient will verbalize/demonstrate understanding of assistive devices/modifications for ADL. 3=Patient will improve strength/tolerance for activity to enable patient to perform ADL's. OT Education/Plan Problem List/Assessment Assessment: Decreased Activ Tolerance, Edema, Impaired I ADL's, Impaired Self- Care Skills Discharge Recommendations Plan/Recommendations: Continue POC Treatment Plan/Plan of Care Treatment,Training & Education: Yes Patient would benefit from OT for education, treatment and training to promote independence in ADL's, mobility, safety and/or upper extremity function for ADL's. Plan of Care: ADL Retraining, Caregiver Training, Functional Mobility, UE Funct Exercise/Act Treatment Duration: Dec 17, 2018 Frequency: 5 times per week Estimated Hrs Per Day: .25 hour per day Agreement: Yes Rehab Potential: Fair Time/GCodes Start Time: 13:52 Stop Time: 14:02 Total Time Billed (hr/min): 10 Billed Treatment Time 1 EVM (10) CHRIS DELGADILLO OTR Dec 10, 2018 14:34
--- NOTE | 2018-12-10 14:38 | Physical Therapy Evaluation ---
PT Evaluation-General Medical Diagnosis Admission Date Dec 10, 2018 at 11:14 Medical Diagnosis: respiratory failure/sepsis/pneumonia/left LE cellulitis Onset Date: Dec 10, 2018 Therapy Diagnosis Therapy Diagnosis: debility/decreased pulmonary function Height/Weight Height (Feet): 5 Height (Inches): 11 Weight (Pounds): 260 Weight (Ounces): 0.0 Precautions Precautions/Isolations: Standard Precautions Referral Physician: Hernando Reason for Referral: Evaluation/Treatment Medical History Pertinent Medical History: CAD, DM, HTN, Neuropathy Current History Transfer to ICU from ARU Reviewed History: Yes Prior/Core FIM Prior Level of Function Therapy Code Descriptions/Definitions Functional [place] Measure: 0=Not Assessed/NA 4=Minimal Assistance 1=Total Assistance 5=Supervision or Setup 2=Maximal Assistance 6=Modified [place] 3=Moderate Assistance 7=Complete [place] Therapy Quality Codes: 6 Independent with activity with or without an assistive device 5 Patient requires set up or clean up by helper. Patient completes activity by themselves 4 Supervision or touching assist (CGA). [place] provide cues , steadying assist 3 The helper provides less than half the effort to complete the activity 2 The helper provides more than half the effort to complete the activity 1 Dependent. The helper does all the effort to complete an activity 7 Patient refused to complete or attempt activity 9 The patient did not perform the activity before the current illness or injury 88 Not attempted due to Medical conditions or safety concerns Functional Abilities and Goals: Independent: Patient completed the activities by him/herself, with or without an assistive device, with no assistance from a helper. Needed Some Help: Patient needed partial assistance from another person to complete activities. Dependent: A helper completed the activities for the patient. Unknown: Not Applicable: Bed Mobility: 7 Transfers (B,C,W/C) (FIM): 7 Gait: 7 Stairs: 7 Indoor Mobility (Ambulation): Independent Stairs: Independent Prior Devices Use: None PT Evaluation-Current Subjective Patient agrees to PT. No c/o. Objective Patient Orientation: Normal For Age Problem Solving: Good Attachments: Oxygen (Bipap) ROM/Strength ROM Lower Extremities bilateral LE limited due to edema Strength Lower Extremities 4/5 grossly bilateral LE Integumentary/Posture Integumentary refer to nursing notes Bowel Incontinence: No Bladder Incontinence: No Posture WFL Neuromuscular (Tone, Coordination, Reflexes) grossly intact Sensory Vision: Functional Hearing: Functional Sensation Right Lower Extremit: Impaired Sensation Left Lower Extremity: Impaired Transfers Therapy Code Descriptions/Definitions Functional [place] Measure: 0=Not Assessed/NA 4=Minimal Assistance 1=Total Assistance 5=Supervision or Setup 2=Maximal Assistance 6=Modified [place] 3=Moderate Assistance 7=Complete [place] Transfers (B, C, W/C) (FIM): 6 Scootin Sit to/from Stand: 6 Gait Mode of Locomotion: Walk Anticipated Mode of Locomotion: Walk Gait (FIM): 1 Distance (FIM): 1=up to 49 ft Distance: 10' Gait Level of Assist: 6 Gait Assistive Device: FWW Comments/Gait Description functional gait sequence (limited by Bipap and decrease in SAO2 with activity to 85%) Balance Sitting Static: Normal Sitting Dynamic: Normal Standing Static: Normal Assessment/Needs Patient limited by decreased pulmonary function with activity. Patient is modified independent with transfers and bed mobility. He transferred to ICU from ARU due to respiratory distress. Rehab Potential: Poor PT Short Term Goals Short Term Goals Time Frame: Dec 15, 2018 Transfers (B,C,W/C) (FIM): 6 Gait (FIM): 6 Distance (FIM): 3=150 ft Gait Distance Comment: 150' Gait Level of Assist: 6 Gait Assistive Device: FWW PT Plan Problem List Problem List: Activity Tolerance Treatment/Plan Treatment Plan: Continue Plan of Care Treatment Plan: Education, Functional Activity Johanna, Functional Strength, Gait, Safety, Therapeutic Exercise Treatment Duration: Dec 15, 2018 Frequency: 6 times per week Estimated Hrs Per Day: .25 hour per day Patient and/or Family Agrees t: Yes Time/GCodes Time In: 1400 Time Out: 1416 Total Billed Treatment Time: 16 Total Billed Treatment 1 visit EVLowC 16 min DANIELLE CONTRERAS PT Dec 10, 2018 14:38
--- NOTE | 2018-12-10 14:54 | Wound Care Assessment ---
Wound Care Assessment Date Seen by Provider: Dec 10, 2018 Time Seen by Provider: 14:20 Chief Complaint Bilateral foot ulcers. HPI The patient is a 63 year old male diabetic, former smoker, readmitted for respiratory failure, noted to have bilateral foot ulcers and bilateral calf swelling. The webspace ulcers are consistent with tinea pedis, and are treated with Nystatin and silver alginate. Exam Vital Signs Date Time Temp Pulse Resp B/P (MAP) Pulse Ox O2 Delivery O2 Flow Rate FiO2 12/10/18 14:40 NIV Bilevel 40 12/10/18 14:10 87 30 97 40.00 12/10/18 14:00 136/98 (111) Capillary Refill : DAVID AYOUB MD Dec 10, 2018 14:54
[2018-12-10 15:44] LABS: ABG BASE EXCESS -0.8 MMOL/L (-2.5-2.5); ABG OXYGEN SATURATION 96 % (94-100); ABG PCO2 56 MMHG (35-45); ABG PO2 85 MMHG (79-93); ABG TCO2 27.1 MMOL/L (21.0-31.0)
[2018-12-10 15:45] LABS: ALLENS TEST YES-POS; INSPIRED O2 40%; PATIENT TEMP 36.5; VENTILATOR NO
[2018-12-10 15:46] LABS: ABG PH 7.27 (7.37-7.43)
[2018-12-10] MEDS: metFORMIN 500 MG (GLUCOPHAGE) TAB PO SCH (17:04)
[2018-12-10] MEDS: ETODOLAC 300 MG (LODINE) CAP PO SCH (17:05)
[2018-12-10] MEDS: inSUlin ASPART (NovoLOG) 1 UNIT/0.01 ML (CHARGE PER UNIT) SQ SCH ×2 (17:05→22:56)
[2018-12-10 18:33] LABS: ABG BASE EXCESS -1.2 MMOL/L (-2.5-2.5); ABG OXYGEN SATURATION 99 % (94-100); ABG PCO2 48 MMHG (35-45); ABG PO2 150 MMHG (79-93); ABG TCO2 25.6 MMOL/L (21.0-31.0)
[2018-12-10 18:34] LABS: ALLENS TEST YES-POS; INSPIRED O2 40%; VENTILATOR NO
[2018-12-10 18:35] LABS: ABG PH 7.32 (7.37-7.43); PATIENT TEMP 36.5
[2018-12-10] MEDS: AMIODARONE 200 MG (CORDARONE) TAB PO SCH (20:34)
[2018-12-10] MEDS: OMEGA 3 (FISH OIL) 1000 MG CAP PO SCH (20:34)
[2018-12-10] MEDS: APIXABAN 5 MG (ELIQUIS) TABLET PO SCH (20:34)
[2018-12-10] MEDS: SIMvastatin 10 MG (ZOCOR) TAB PO SCH (20:35)
--- NOTE | 2018-12-10 21:59 | Progress Note ---
Progress Note Chief complaint: Respiratory insufficiency with hypercapnia HPI: This is a 63yoWM who presented with respiratory insufficiency and hypercapnia due altered mental status requiring BiPAP while in inpatient rehab but needed close monitoring from cardiology and pulmonology standpoint after he was moved down to rehab yesterday. He has never had a sleep study and doesn't wear oxygen at night so he definitely has obesity hypoventilation syndrome from ABG findings consistent with approval for vent mask at discharge and will aggressively treat him and go back to inpatient rehab when able. YARIEL BUI DO Dec 10, 2018 21:59
[2018-12-11] VITALS (16 sets, daily range): BP systolic 112–162; BP diastolic 52–82
[2018-12-11] MEDS: DILTIAZEM 60 MG (CARDIZEM) TAB PO SCH ×4 (00:38→18:06)
[2018-12-11] MEDS: RT-ALBUTEROL/IPRATROPIUM 3 ML (DUONEB) VIAL INH SCH ×6 (01:54→22:34)
[2018-12-11 03:07] LABS: CALCIUM 8.5 MG/DL (8.5-10.1); CREATININE SERUM 1.8 MG/DL (0.60-1.30); MAGNESIUM 2.3 MG/DL (1.6-2.4); PHOSPHORUS 4.1 MG/DL (2.3-4.7); POTASSIUM 5.5 MMOL/L (3.6-5.0)
[2018-12-11 04:38] LABS: ABG BASE EXCESS -0.6 MMOL/L (-2.5-2.5); ABG OXYGEN SATURATION 98 % (94-100); ABG PCO2 48 MMHG (35-45); ABG PO2 99 MMHG (79-93); ABG TCO2 26.4 MMOL/L (21.0-31.0)
[2018-12-11 04:41] LABS: ALLENS TEST positive; PATIENT TEMP 35.9; VENTILATOR NO
[2018-12-11 04:53] LABS: ABG PH 7.33 (7.37-7.43)
[2018-12-11] MEDS ORDERED: POTASSIUM CL 10MEQ/50ML IVPB 50 ML IV SCH (06:00)
[2018-12-11] MEDS ORDERED: MAGNESIUM 1 GM/100 ML IVPB 100 ML IV SCH (06:00)
[2018-12-11] MEDS: POTASSIUM CL 10MEQ/50ML IVPB 50 ML IV SCH (07:21)
[2018-12-11] MEDS: KCL 20 MEQ TAB (K-DUR) PO SCH ×2 (07:22)
[2018-12-11] MEDS: MAGNESIUM 1 GM/100 ML IVPB 100 ML IV SCH (07:23)
[2018-12-11] MEDS: inSUlin ASPART (NovoLOG) 1 UNIT/0.01 ML (CHARGE PER UNIT) SQ SCH ×4 (08:01→21:19)
[2018-12-11] MEDS: ETODOLAC 300 MG (LODINE) CAP PO SCH ×2 (08:01→18:06)
[2018-12-11] MEDS: metFORMIN 500 MG (GLUCOPHAGE) TAB PO SCH ×2 (08:01→18:06)
[2018-12-11] MEDS: MULTIVIT W/MINERALS TAB (THERAGRAN M) PO SCH (08:01)
[2018-12-11] MEDS: CATHETER FLUSH 10 ML SYR IV SCH ×3 (08:06→21:20)
--- NOTE | 2018-12-11 08:11 | Diagnostic Imaging Report ---
Clinical indication: Patient with acute respiratory distress. Exam: Portable chest x-ray upright view. Comparisons: Chest x-ray dated 12/10/2018. Findings: There is interval improved aeration of the right lung field with residual right basilar atelectasis versus infiltrate. There is a right pleural effusion again noted. There is left basilar atelectasis versus infiltrate remaining. There is stable cardiomegaly with interval slight decreased pulmonary vascular congestion. The remainder of this exam shows no significant interval change compared to the prior study of comparison. Impression: 1: There is interval improved aeration of the right lung with continued bibasilar atelectasis versus infiltrate. 2: Right pleural effusion is again seen. 3: There is stable cardiomegaly with interval slight decreased pulmonary vascular congestion. Dictated by: Dictated on workstation # [id number]
--- NOTE | 2018-12-11 08:21 | Pulmonary Progress Note ---
Subjective Time Seen by a Provider: 08:25 Subjective/Events-last exam Pt is still requiring highflow oxygen. ABG still shows acute respiratory ac idosis. Sepsis Event Evaluation Height, Weight, BMI Height: 5'11" Weight: 260lbs. 0.0oz. [id number]; 34.62 BMI Method:Stated Exam Exam Vital Signs Date Time Temp Pulse Resp B/P (MAP) Pulse Ox O2 Delivery O2 Flow Rate FiO2 12/11/18 06:00 52 19 116/62 (80) 97 NIV Bilevel 40.00 12/11/18 05:00 55 18 117/61 (79) 98 NIV Bilevel 40.00 12/11/18 04:58 NIV Bilevel 35 12/11/18 04:00 55 22 112/52 (72) 97 NIV Bilevel 40.00 12/11/18 03:00 56 25 141/66 (91) 96 NIV Bilevel 40.00 12/11/18 02:00 56 18 123/60 (81) 97 NIV Bilevel 40.00 12/11/18 01:54 55 26 97 35.00 12/11/18 01:06 57 12/11/18 01:00 55 23 139/70 (93) 98 NIV Bilevel 40.00 12/11/18 00:36 NIV Bilevel 40 12/11/18 00:20 36.0 12/11/18 00:00 56 13 130/62 (84) 95 NIV Bilevel 40.00 12/10/18 23:00 59 22 143/68 (93) 98 NIV Bilevel 40.00 12/10/18 22:00 62 18 134/88 (103) 98 NIV Bilevel 40.00 12/10/18 21:50 62 22 98 35.00 12/10/18 21:00 70 18 154/82 (106) 97 NIV Bilevel 40.00 12/10/18 20:35 NIV Bilevel 40 12/10/18 20:20 35.9 12/10/18 20:00 66 23 164/85 (111) 97 NIV Bilevel 40.00 12/10/18 20:00 36.6 12/10/18 19:52 92 Vapotherm 40.00 50 12/10/18 19:00 61 12/10/18 18:03 65 32 97 35.00 12/10/18 18:00 63 16 96 NIV Bilevel 40.00 12/10/18 17:00 83 22 114/58 (76) 97 NIV Bilevel 40.00 12/10/18 16:05 66 18 98 35.00 12/10/18 16:05 36.2 66 98 40 12/10/18 16:00 36.2 12/10/18 16:00 66 31 98 NIV Bilevel 40.00 12/10/18 16:00 NIV Bilevel 40 12/10/18 15:00 63 25 97 NIV Bilevel 40.00 12/10/18 14:40 NIV Bilevel 40 12/10/18 14:10 87 30 97 40.00 12/10/18 14:00 66 14 136/98 (111) 97 NIV Bilevel 12/10/18 13:02 57 12/10/18 13:00 55 25 118/63 (81) 97 NIV Bilevel 12/10/18 12:00 57 26 98/45 (62) 97 NIV Bilevel 12/10/18 11:45 64 36 121/63 (82) 97 NIV Bilevel 12/10/18 11:32 NIV Bilevel 40 I & O 12/11/18 07:00 Intake Total 900 ml Output Total 1225 ml Balance -325 ml Height & Weight Height: 5'11" Weight: 260lbs. 0.0oz. [id number]; 34.62 BMI Method:Stated General Appearance: Anxious, Chronically ill, Mild Distress, Obese HEENT: PERRL/EOMI, Pharynx Normal Neck: Full Range of Motion, Non Tender, Supple Respiratory: Chest Non Tender, Accessory Muscle Use, Crackles, Decreased Breath Sounds Cardiovascular: Regular Rate, Rhythm Capillary Refill: Less Than 3 Seconds Gastrointestinal: normal bowel sounds, non tender, soft Extremity: Normal Capillary Refill, Normal Inspection, Pedal Edema Neurologic/Psychiatric: Alert, Oriented x3 Skin: Normal Color, Warm/Dry Lymphatic: No Adenopathy Results Lab Laboratory Tests 12/11/18 02:43 Assessment/Plan Assessment/Plan Acute respiratory failure with hypoxia -Pt used vent to mask through the night. He is currently on Vapotherm -Titrate Fi02 for Sp02 90-94% -Repeat labs pending -SVN - prednisone 40mg daily Pneumonia with sepsis -Repeat cultures and restart Zosy S/p Bacteremia with strep -s/p Zosyn -Repeat cultures Afib LLL cellulitis - IDDM Chronic anemia DEJA SMITH DO Dec 11, 2018 08:21
[2018-12-11] MEDS ORDERED: PIPERACILLIN/TAZOBACTAM (BULK) 4.5 GM in NS (IVPB) 100 ML IV NR (08:45)
[2018-12-11] MEDS ORDERED: PIPERACILLIN/TAZOBACTAM (BULK) 4.5 GM in NS (IVPB) 100 ML IV SCH (08:45)
[2018-12-11] MEDS ORDERED: CANAGLIFLOZIN 100 MG PO SCH (09:00)
[2018-12-11] MEDS ORDERED: VITAMIN PACK PO SCH (09:00)
[2018-12-11 09:24] LABS: BASOPHILS % (AUTO) 0 % (0-10); EOSINOPHILS # (AUTO) 0.1 10^3/uL (0.0-0.3); EOSINOPHILS % (AUTO) 1 % (0-10); HEMATOCRIT 31 % (40-54); HEMOGLOBIN 9.9 G/DL (13.3-17.7); LYMPHOCYTES # (AUTO) 0.9 X 10^3 (1.0-4.0); LYMPHOCYTES % (AUTO) 8 % (12-44); MEAN CORPUSCULAR HEMOGLOBIN 29 PG (25-34); MEAN CORPUSCULAR HGB CONC 32 G/DL (32-36); MEAN CORPUSCULAR VOLUME 92 FL (80-99); MEAN PLATELET VOLUME 9.6 FL (7.4-10.4); MONOCYTES % (AUTO) 9 % (0-12); NEUTROPHILS # (AUTO) 8.9 X 10^3 (1.8-7.8); NEUTROPHILS % (AUTO) 82 % (42-75); PLATELET COUNT 322 10^3/uL (130-400); WHITE BLOOD COUNT 10.8 10^3/uL (4.3-11.0)
[2018-12-11] MEDS: OMEGA 3 (FISH OIL) 1000 MG CAP PO SCH ×2 (09:56→21:17)
[2018-12-11] MEDS: APIXABAN 5 MG (ELIQUIS) TABLET PO SCH ×2 (09:56→21:17)
[2018-12-11] MEDS: AMIODARONE 200 MG (CORDARONE) TAB PO SCH ×2 (09:56→21:18)
[2018-12-11] MEDS: ASPIRIN 81 MG CHEW (CHILDREN'S ASA) PO SCH (09:56)
[2018-12-11] MEDS: meTOproloL SUCCINATE 50 MG (TOPROL XL) TAB PO SCH (09:56)
[2018-12-11] MEDS: MICONAZOLE 2% POWDER (DESENEX AF) 90 GM TOP SCH (09:57)
--- NOTE | 2018-12-11 10:58 | Physical Therapy Progress Note ---
Therapy Progress Note Pt. refused PT x2 this date. Initially patient wanted to wait until he had breakfast, and on second attempt he declined ambulation due to SOB and CPAP in place. Nursing notified of refusals, will return 12/13. 1020 DAMON BAKER PT Dec 11, 2018 10:58
--- NOTE | 2018-12-11 13:21 | Progress Note - Hospitalist ---
Subjective HPI/CC On Admission Date Seen by Provider: Dec 11, 2018 Time Seen by Provider: 12:15 Subjective/Events-last exam Patient doing better Changing back and forth from Vapotherm to BiPAP Very severe lung function Transferring to floor today Denies any pain Bowels not moved for 2 days but he is eating and drinking well Checked meds and labs Hopefully good down to rehabilitation when he stable Review of Systems General: Fatigue Pulmonary: Dyspnea Objective Exam Vital Signs Vital Signs Date Time Temp Pulse Resp B/P (MAP) Pulse Ox O2 Delivery O2 Flow Rate FiO2 12/11/18 12:00 36.4 12/11/18 12:00 57 25 144/65 (91) 98 Vapotherm 35.00 35.00 12/11/18 08:00 35 Capillary Refill : Less Than 3 Seconds General Appearance: No Apparent Distress, WD/WN, Anxious, Chronically ill, Obese Respiratory: Chest Non Tender, Lungs Clear, Normal Breath Sounds, No Accessory Muscle Use, No Respiratory Distress, Decreased Breath Sounds Cardiovascular: Regular Rate, Rhythm, No Edema, No Gallop, No JVD, No Murmur, Normal Peripheral Pulses Neurologic/Psychiatric: Alert, Oriented x3, No Motor/Sensory Deficits, Normal Mood/Affect Results/Procedures Lab Laboratory Tests 12/11/18 02:43 12/11/18 08:57 Patient resulted labs reviewed. Assessment/Plan Assessment and Plan Assess & Plan/Chief Complaint Assessment: Hypercapnic and hypoxic respiratory failure Severe untreated sleep apnea with obesity hypoventilation syndrome Recent new onset atrial fibrillation with rapid ventricular response On oral anticoagulation Frequent left lower leg cellulitis Recent pneumonia COPD Chronic renal insufficiency Plan: Transfer to floor lung function BiPAP along with Vapotherm Monitor creatinine Diagnosis/Problems Diagnosis/Problems (1) Hypercapnia (2) Hypoxia Status: Acute (3) Atrial fibrillation with rapid ventricular response Status: Acute (4) Diabetes mellitus with hyperglycemia Status: Acute (5) Cellulitis of left lower extremity Status: Acute (6) Myopathy (7) Diabetes Clinical Quality Measures DVT/VTE Risk/Contraindication: Risk Factor Score Per Nursin RFS Level Per Nursing on Admit: 4+=Very High YARIEL BUI DO Dec 11, 2018 13:21
--- NOTE | 2018-12-11 13:21 | Cardiology Progress Note ---
Cardiology SOAP Progress Note Subjective: BiPAP machine, short of breath. Objective: I&O/Vital Signs 12/11/18 12/11/18 12/11/18 12/11/18 01:54 02:00 03:00 04:00 Pulse 55 56 56 55 Resp 26 18 25 22 B/P (MAP) 123/60 (81) 141/66 (91) 112/52 (72) Pulse Ox 97 97 96 97 O2 Delivery NIV Bilevel NIV Bilevel NIV Bilevel O2 Flow Rate 35.00 40.00 40.00 40.00 12/11/18 12/11/18 12/11/18 12/11/18 04:58 05:00 06:00 07:00 Pulse 55 52 58 Resp 18 19 B/P (MAP) 117/61 (79) 116/62 (80) Pulse Ox 98 97 O2 Delivery NIV Bilevel NIV Bilevel NIV Bilevel O2 Flow Rate 40.00 40.00 FiO2 35 12/11/18 12/11/18 12/11/18 12/11/18 07:00 08:00 08:00 08:15 Temp 36.6 Pulse 56 Resp 17 B/P (MAP) 141/71 (94) Pulse Ox 96 O2 Delivery NIV Bilevel NIV Bilevel NIV Bilevel Vapotherm O2 Flow Rate 40.00 35.00 35.00 35.00 FiO2 35 12/11/18 12/11/18 12/11/18 12/11/18 09:00 10:00 11:00 12:00 Pulse 65 64 76 57 Resp 26 35 16 25 B/P (MAP) 143/68 (93) 113/82 (92) 144/65 (91) Pulse Ox 94 96 100 98 O2 Delivery Vapotherm Vapotherm Vapotherm Vapotherm O2 Flow Rate 35.00 35.00 35.00 35.00 35.00 35.00 35.00 35.00 12/11/18 12:00 Temp 36.4 12/11/18 00:00 Intake Total 600 ml Output Total 875 ml Balance -275 ml Weight (Pounds): 260 Weight (Ounces): 0.0 Weight (Calculated Kilograms): 117.097985 Constitutional: AAO x 3, apparent distress Respiratory: accessory muscle use, respiratory distress, chest is bilaterally symmetric Cardiovascular: regular rate-rhythm, S1 and S2 Gastrointestional: soft, audible bowel sounds Extremities: normal range of motion, non-tender, normal inspection, no lower extremity edema bilateral Neurologic/Psychiatric: no motor/sensory deficits, alert, normal mood/affect, oriented x 3 Skin: normal color Results/Procedures: Labs Laboratory Tests 12/10/18 15:34: Blood Gas Puncture Site L RAD, Blood Gas Patient Temperature 36.5, Arterial Blood pH 7.27*L, Arterial Blood Partial Pressure CO2 56H, Arterial Blood Partial Pressure O2 85, Arterial Blood HCO3 25, Arterial Blood Total CO2 27.1, Arterial Blood Oxygen Saturation 96, Arterial Blood Base Excess -0.8, Gurwinder Test YES-POS, Blood Gas Ventilator Setting NO, Blood Gas Inspired Oxygen 40% 12/10/18 18:25: Blood Gas Puncture Site R RAD, Blood Gas Patient Temperature 36.5, Arterial Blood pH 7.32*L, Arterial Blood Partial Pressure CO2 48H, Arterial Blood Partial Pressure O2 150H, Arterial Blood HCO3 24, Arterial Blood Total CO2 25.6, Arterial Blood Oxygen Saturation 99, Arterial Blood Base Excess -1.2, Gurwinder Test YES-POS, Blood Gas Ventilator Setting NO, Blood Gas Inspired Oxygen 40% 12/10/18 22:48: Glucometer 316H 12/11/18 02:43: Sodium Level 137, Potassium Level 5.5H, Chloride Level 105, Carbon Dioxide Level 22, Anion Gap 10, Blood Urea Nitrogen 38H, Creatinine 1.80H, Estimat Glomerular Filtration Rate 38, BUN/Creatinine Ratio 21, Glucose Level 276H, Calcium Level 8.5, Phosphorus Level 4.1, Magnesium Level 2.3 12/11/18 04:30: Blood Gas Puncture Site left radial artline, Blood Gas Patient Temperature 35.9, Arterial Blood pH 7.33*L, Arterial Blood Partial Pressure CO2 48H, Arterial Blood Partial Pressure O2 99H, Arterial Blood HCO3 25, Arterial Blood Total CO2 26.4, Arterial Blood Oxygen Saturation 98, Arterial Blood Base Excess -0.6, Gurwinder Test positive, Blood Gas Ventilator Setting NO, Blood Gas Inspired Oxygen 35% bipap 12/11/18 08:57: White Blood Count 10.8, Red Blood Count 3.39L, Hemoglobin 9.9L, Hematocrit 31L, Mean Corpuscular Volume 92, Mean Corpuscular Hemoglobin 29, Mean Corpuscular Hemoglobin Concent 32, Red Cell Distribution Width 14.0, Platelet Count 322, Mean Platelet Volume 9.6, Neutrophils (%) (Auto) 82H, Lymphocytes (%) (Auto) 8L, Monocytes (%) (Auto) 9, Eosinophils (%) (Auto) 1, Basophils (%) (Auto) 0, Neutrophils # (Auto) 8.9H, Lymphocytes # (Auto) 0.9L, Monocytes # (Auto) 1.0, Eosinophils # (Auto) 0.1, Basophils # (Auto) 0.0, B-Type Natriuretic Peptide 275.8H 12/11/18 11:19: Glucometer 328H A/P: Assessment/Dx: Acute respiratory failure, pneumonia, sepsis, COPD exacerbation, Cellulitis, Acute on chronic renal failure, Atrial fibrillation, currently in sinus rhythm, Peripheral edema, Plan: Acute respiratory failure, acute exacerbation of COPD, managed by Dr. Contreras, currently on Cipro Pneumonia recovering, managed by primary care team Cellulitis, receiving antibiotics. Acute on chronic renal failure, continue to monitor renal function New-onset atrial fibrillation, back to sinus rhythm, change Cardizem to long- acting and monitor tolerance and response Morbid obesity, obesity hypoventilation syndrome and acute respiratory failure. Managed by Dr. Contreras Peripheral edema, chronic, echocardiogram showed normal left ventricular size and function with ejection fraction 55-60 percent, left atrial dilatation measuring 6.1 cm, mild mitral regurgitation, pulmonary hypertension with PA pressure 40-50 mmHg. Continue to monitor Coronary artery disease, history of cardiac catheterization done in 2014 showing coronary ectasia with slow flow, no significant obstructive disease. Conservative management Hypertension, elevated blood pressure, currently in respiratory failure, continue to monitor blood pressure Hyperlipidemia, monitor lipids Diabetes mellitus, followed and managed by primary care physician Thank you for your consultation. Please call me if you have any questions. Harish Colon MD, FACP, FACC, FSCAI, FHRS, CCDS Interventional Cardiology Cardiac Electrophysiology Vascular Medicine and Endovascular Interventions Renetta COLON MD Dec 11, 2018 13:21
--- NOTE | 2018-12-11 14:13 | History & Physical-Hospitalist ---
History of Present Illness HPI/Chief Complaint Chief complaint: Respiratory insufficiency with hypercapnia HPI: This is a 63yoWM who presented with respiratory insufficiency and hypercapnia due altered mental status requiring BiPAP while in inpatient rehab but needed close monitoring from cardiology and pulmonology standpoint after he was moved down to rehab yesterday. He has never had a sleep study and doesn't wear oxygen at night so he definitely has obesity hypoventilation syndrome from ABG findings consistent with approval for vent mask at discharge and will aggressively treat him and go back to inpatient rehab when able. Date Seen 12/11/18 Time Seen by a Provider: 12:00 Attending Physician Sandra Villagomez DO PCP Neymar Degroot MD Referring Physician Date of Admission Dec 10, 2018 at 11:14 Home Medications & Allergies Home Medications Reviewed patient Home Medication Reconciliation performed by pharmacy medication reconciliations identification technician and/or nursing. Patients Allergies have been reviewed. Allergies Allergies Coded Allergies NKANo Known Allergies (Verified Allergy, Unknown, 05/15/05) Past Ixjuyvt-[id number]-Rspote Hx Past Med/Social Hx: Reviewed Nursing Past Med/Soc Hx, Reviewed and Corrections made Patient Social History Marrital Status: Employed/Student: retired Smoking Status: Former Smoker Former Smoker, Quit: Aug 15, 2005 Recent Hopitalizations: No Immunizations Up To Date Tetanus Booster (TDap): More than 5yrs Seasonal Allergies Seasonal Allergies: No Past Medical History Surgeries: Abdominal, Cardiac Respiratory: COPD, Pneumonia Currently Using CPAP: No Currently Using BIPAP: No Cardiac: Atrial Fibrillation, Chronic Edema/Swelling, High Cholesterol, Hypertension Neurological: Neuropathy Reproductive: No Sexually Transmitted Disease: No Genitourinary: Renal Failure Gastrointestinal: Abdominal Hernia Endocrine: Diabetes, Insulin dep Loss of Vision: Denies Hearing Impairment: Denies History of Blood Disorders: No Family History Diabetes mellitus 19 FATHER G8 BROTHER Hypertension G8 BROTHER Myocardial infarction 19 FATHER, Onset:50's - 60 Review of Systems Constitutional: see HPI Respiratory: dyspnea on exertion Physical Exam Physical Exam Vital Signs Vital Signs - First Documented 12/10/18 12/10/18 12/10/18 12/10/18 11:32 11:45 14:10 16:00 Temp 36.2 Pulse 64 Resp 36 B/P (MAP) 121/63 (82) Pulse Ox 97 O2 Delivery NIV Bilevel O2 Flow Rate 40.00 FiO2 40 Capillary Refill : Less Than 3 Seconds Height, Weight, BMI Height: 5'11" Weight: 260lbs. 0.0oz. 117.298679pc; 34.62 BMI Method:Stated General Appearance: No Apparent Distress, WD/WN, Chronically ill, Obese Eyes: Right Eye Normal Inspection, Right Eye PERRL HEENT: PERRL/EOMI, Normal ENT Inspection, Pharynx Normal, Moist Mucous Membranes Neck: Full Range of Motion, Normal Inspection, Non Tender Respiratory: Chest Non Tender, Lungs Clear, Normal Breath Sounds, No Accessory Muscle Use, No Respiratory Distress, Decreased Breath Sounds Cardiovascular: Regular Rate, Rhythm, No Edema, No Gallop, No JVD, No Murmur, Normal Peripheral Pulses Gastrointestinal: Normal Bowel Sounds, No Organomegaly, No Pulsatile Mass, Non Tender, Soft Back: Normal Inspection, No CVA Tenderness, No Vertebral Tenderness Extremity: Normal Capillary Refill, Normal Inspection, Normal Range of Motion, Non Tender, No Calf Tenderness, No Pedal Edema Neurologic/Psychiatric: Alert, Oriented x3, No Motor/Sensory Deficits, Normal Mood/Affect Skin: Normal Color, Warm/Dry Lymphatic: No Adenopathy Results Results/Procedures Labs Laboratory Tests 12/11/18 02:43 12/11/18 08:57 Patient resulted labs reviewed. Assessment/Plan Admission Diagnosis Assessment: Hypercapnic and hypoxic respiratory failure requiring transfer to the ICU from rehabilitation Severe untreated sleep apnea with obesity hypoventilation syndrome Recent new onset atrial fibrillation with rapid ventricular response On oral anticoagulation Frequent left lower leg cellulitis Recent pneumonia COPD Chronic renal insufficiency Plan: Transfer to floor lung function BiPAP along with Vapotherm Monitor creatinine Admission Status: Inpatient Order (span 2 midnights) Reason for Inpatient Admission: Respiratory failure will require 4 days Assessment and Plan Assessment: Hypercapnic and hypoxic respiratory failure Severe untreated sleep apnea with obesity hypoventilation syndrome Recent new onset atrial fibrillation with rapid ventricular response On oral anticoagulation Frequent left lower leg cellulitis Recent pneumonia COPD Chronic renal insufficiency Plan: Transfer to floor lung function BiPAP along with Vapotherm Monitor creatinine Diagnosis/Problems Diagnosis/Problems (1) Hypercapnia Status: Acute (2) Hypoxia Status: Acute (3) Atrial fibrillation with rapid ventricular response Status: Acute (4) Diabetes mellitus with hyperglycemia Status: Chronic Qualifiers: Diabetes mellitus type: type 2 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 Qualified Codes: E11.65 - Type 2 diabetes mellitus with hyperglycemia; Z79.4 - terminal carman (current) use of insulin (5) Cellulitis of left lower extremity Status: Chronic (6) Myopathy Status: Acute (7) Diabetes Status: Chronic Qualifiers: Diabetes mellitus type: type 2 Diabetes mellitus residential insulin use: with residential use Diabetes mellitus complication status: with other specified complication Qualified Codes: E11.69 - Type 2 diabetes mellitus with other specified complication; Z79.4 - terminal carman (current) use of insulin Clinical Quality Measures DVT/VTE Risk/Contraindication: Risk Factor Score Per Nursin RFS Level Per Nursing on Admit: 4+=Very High SANDRA VILLAGOMEZ DO Dec 11, 2018 14:13
[2018-12-11 16:12] LABS: BILIRUBIN,URINE 1+ (NEGATIVE); CLARITY,URINE CLEAR; COLOR,URINE YELLOW; GLUCOSE, URINE (UA) 3+ (NEGATIVE); KETONES,URINE NEGATIVE (NEGATIVE); LEUKOCYTE ESTERASE ,URINE NEGATIVE (NEGATIVE); NITRITE,URINE NEGATIVE (NEGATIVE); PH,URINE 5 (5-9); PROTEIN,URINE 3+ (NEGATIVE); UROBILINOGEN,URINE NORMAL (NORMAL)
[2018-12-11 16:20] LABS: BACTERIA,URINE NEGATIVE /HPF; RBC,URINE RARE /HPF; WBC,URINE 0-2 /HPF
--- NOTE | 2018-12-11 16:34 | NUR ---
Report received from Harriet HORN. Patient sitting in recliner in room, call light within reach. Will assume care at this time.
[2018-12-11] MEDS: PIPERACILLIN/TAZOBACTAM (BULK) 4.5 GM in NS (IVPB) 100 ML IV SCH (16:51)
[2018-12-11] MEDS: SIMvastatin 10 MG (ZOCOR) TAB PO SCH (21:18)
[2018-12-12] VITALS (8 sets, daily range): BP systolic 150–191; BP diastolic 59–79
[2018-12-12] MEDS: PIPERACILLIN/TAZOBACTAM (BULK) 4.5 GM in NS (IVPB) 100 ML IV SCH ×3 (00:48→15:51)
[2018-12-12] MEDS: DILTIAZEM 60 MG (CARDIZEM) TAB PO SCH ×4 (00:48→17:16)
[2018-12-12] MEDS: RT-ALBUTEROL/IPRATROPIUM 3 ML (DUONEB) VIAL INH SCH ×7 (01:31→22:11)
[2018-12-12 05:33] LABS: BASOPHILS # (AUTO) 0.1 10^3/uL (0.0-0.1); BASOPHILS % (AUTO) 1 % (0-10); EOSINOPHILS # (AUTO) 0.5 10^3/uL (0.0-0.3); EOSINOPHILS % (AUTO) 6 % (0-10); HEMATOCRIT 29 % (40-54); HEMOGLOBIN 9.3 G/DL (13.3-17.7); LYMPHOCYTES # (AUTO) 1.4 X 10^3 (1.0-4.0); LYMPHOCYTES % (AUTO) 18 % (12-44); MEAN CORPUSCULAR HEMOGLOBIN 29 PG (25-34); MEAN CORPUSCULAR HGB CONC 32 G/DL (32-36); MEAN CORPUSCULAR VOLUME 93 FL (80-99); MEAN PLATELET VOLUME 9.7 FL (7.4-10.4); MONOCYTES # (AUTO) 0.8 X 10^3 (0.0-1.0); MONOCYTES % (AUTO) 10 % (0-12); NEUTROPHILS # (AUTO) 5.1 X 10^3 (1.8-7.8); NEUTROPHILS % (AUTO) 65 % (42-75); PLATELET COUNT 317 10^3/uL (130-400); WHITE BLOOD COUNT 7.9 10^3/uL (4.3-11.0)
--- NOTE | 2018-12-12 05:43 | Diagnostic Imaging Report ---
Clinical indication: Patient with acute respiratory distress. Exam: Portable chest x-ray upright view. Comparisons: Portable chest x-ray dated 12/11/2018. Findings: There is stable cardiomegaly with stable mild pulmonary vascular congestion. Again seen right pleural effusion. There is stable bibasilar atelectasis versus infiltrate. The remainder of this exam shows no significant interval change compared to the prior study of comparison. Impression: 1: Stable chest x-ray exam with cardiomegaly and mild pulmonary vascular congestion. 2: Bibasilar atelectasis versus infiltrate and right pleural effusion. Dictated by: Dictated on workstation # [id number]
[2018-12-12 06:04] LABS: ABG BASE EXCESS 1.7 MMOL/L (-2.5-2.5); ABG PCO2 53 MMHG (35-45); ABG PO2 109 MMHG (79-93); ABG TCO2 28.9 MMOL/L (21.0-31.0)
[2018-12-12 06:05] LABS: ABG OXYGEN SATURATION 97 % (94-100)
[2018-12-12 06:11] LABS: CALCIUM 8.5 MG/DL (8.5-10.1); CREATININE SERUM 1.83 MG/DL (0.60-1.30); MAGNESIUM 2.3 MG/DL (1.6-2.4); POTASSIUM 4.4 MMOL/L (3.6-5.0)
[2018-12-12 06:27] LABS: ABG PH 7.33 (7.37-7.43); ALLENS TEST POSITIVE; INSPIRED O2 35% BIPAP; PATIENT TEMP 36.4; VENTILATOR NO
[2018-12-12] MEDS: KCL 20 MEQ TAB (K-DUR) PO SCH ×2 (06:37→06:38)
[2018-12-12] MEDS: POTASSIUM CL 10MEQ/50ML IVPB 50 ML IV SCH (06:37)
[2018-12-12] MEDS: MAGNESIUM 1 GM/100 ML IVPB 100 ML IV SCH (06:37)
[2018-12-12] MEDS: MULTIVIT W/MINERALS TAB (THERAGRAN M) PO SCH (06:49)
[2018-12-12] MEDS: metFORMIN 500 MG (GLUCOPHAGE) TAB PO SCH ×2 (06:49→17:16)
[2018-12-12] MEDS: ETODOLAC 300 MG (LODINE) CAP PO SCH ×2 (06:50→17:16)
[2018-12-12] MEDS: inSUlin ASPART (NovoLOG) 1 UNIT/0.01 ML (CHARGE PER UNIT) SQ SCH ×4 (06:50→22:03)
[2018-12-12] MEDS: CATHETER FLUSH 10 ML SYR IV SCH ×3 (06:54→20:35)
--- NOTE | 2018-12-12 07:03 | NUR ---
UNABLE TO OBTAIN DAILY WEIGHT PT WILL NOT LAY IN THE BED
--- NOTE | 2018-12-12 07:56 | Pulmonary Progress Note ---
Subjective Time Seen by a Provider: 07:35 Subjective/Events-last exam Pt is doing much better. He is using BiPAP [facility] Sepsis Event Evaluation Height, Weight, BMI Height: 5'11" Weight: 260lbs. 0.0oz. 117.522776js; 34.62 BMI Method:Stated Exam Exam Vital Signs Date Time Temp Pulse Resp B/P (MAP) Pulse Ox O2 Delivery O2 Flow Rate FiO2 12/12/18 06:34 94 Vapotherm 30.00 35 12/12/18 03:47 36.9 56 26 155/76 (102) 98 NIV Bilevel 35.00 12/12/18 01:32 59 25 97 35.00 12/12/18 00:20 36.4 58 23 155/59 (91) 99 NIV Bilevel 35.00 12/12/18 00:20 36.4 58 23 155/59 (91) 99 NIV Bilevel 35.00 12/11/18 22:34 58 22 95 35.00 12/11/18 21:00 Vapotherm 35.00 35 12/11/18 20:00 37.6 63 20 162/78 (106) 97 12/11/18 18:19 57 15 98 35.00 12/11/18 16:00 36.4 12/11/18 16:00 62 32 156/78 (104) 95 Vapotherm 35.00 35.00 12/11/18 15:00 61 28 Vapotherm 35.00 35.00 12/11/18 14:00 63 22 138/53 (81) 96 Vapotherm 35.00 35.00 12/11/18 13:00 61 22 148/78 (101) 92 Vapotherm 35.00 35.00 12/11/18 13:00 61 12/11/18 12:00 NIV Bilevel 35 12/11/18 12:00 36.4 12/11/18 12:00 57 25 144/65 (91) 98 Vapotherm 35.00 35.00 12/11/18 11:00 76 16 113/82 (92) 100 Vapotherm 35.00 35.00 12/11/18 10:00 64 35 143/68 (93) 96 Vapotherm 35.00 35.00 12/11/18 09:00 65 26 94 Vapotherm 35.00 35.00 12/11/18 08:15 Vapotherm 35.00 35.00 12/11/18 08:00 NIV Bilevel 35 12/11/18 08:00 36.6 NIV Bilevel 35.00 I & O 12/12/18 07:00 Intake Total 1860 ml Output Total 1800 ml Balance 60 ml Height & Weight Height: 5'11" Weight: 260lbs. 0.0oz. 117.370437ew; 34.62 BMI Method:Stated General Appearance: No Apparent Distress, WD/WN, Chronically ill, Obese HEENT: PERRL/EOMI, Normal ENT Inspection, Pharynx Normal, Moist Mucous Membranes Neck: Full Range of Motion, Normal Inspection, Non Tender Respiratory: Chest Non Tender, Lungs Clear, Normal Breath Sounds, No Accessory Muscle Use, No Respiratory Distress, Decreased Breath Sounds Cardiovascular: Regular Rate, Rhythm, No Edema, No Gallop, No JVD, No Murmur, Normal Peripheral Pulses Capillary Refill: Less Than 3 Seconds Gastrointestinal: normal bowel sounds, non tender, soft Extremity: Normal Capillary Refill, Normal Inspection, Normal Range of Motion, Non Tender, No Calf Tenderness, No Pedal Edema Neurologic/Psychiatric: Alert, Oriented x3, No Motor/Sensory Deficits, Normal Mood/Affect Skin: Normal Color, Warm/Dry Lymphatic: No Adenopathy Results Lab Laboratory Tests 12/11/18 02:43 12/11/18 08:57 12/12/18 04:55 12/12/18 05:05 Assessment/Plan Assessment/Plan Acute respiratory failure with hypoxia -Pt used vent to mask through the night. He is currently on Vapotherm -Titrate Fi02 for Sp02 90-94% -SVN Pneumonia with sepsis -Repeat cultures and restart Zosy S/p Bacteremia with strep -s/p Zosyn -Repeat cultures Afib LLL cellulitis - IDDM Chronic anemia DEJA SMITH DO Dec 12, 2018 07:56
--- NOTE | 2018-12-12 08:03 | NUR ---
REMOVED VAPOTHERM AND PLACED PATIENT ON 4 L NC; WILL CONTINUE TO TITRATE O2
[2018-12-12] MEDS: APIXABAN 5 MG (ELIQUIS) TABLET PO SCH ×2 (08:28→20:34)
[2018-12-12] MEDS: OMEGA 3 (FISH OIL) 1000 MG CAP PO SCH ×2 (08:28→20:34)
[2018-12-12] MEDS: ASPIRIN 81 MG CHEW (CHILDREN'S ASA) PO SCH (08:28)
[2018-12-12] MEDS: AMIODARONE 200 MG (CORDARONE) TAB PO SCH ×2 (08:28→20:34)
[2018-12-12] MEDS: meTOproloL SUCCINATE 50 MG (TOPROL XL) TAB PO SCH (08:28)
[2018-12-12] MEDS: MICONAZOLE 2% POWDER (DESENEX AF) 90 GM TOP SCH (08:29)
--- NOTE | 2018-12-12 09:33 | Progress Note - Hospitalist ---
Subjective HPI/CC On Admission Date Seen by Provider: Dec 12, 2018 Time Seen by Provider: 09:00 Chief complaint: Respiratory insufficiency with hypercapnia HPI: This is a 63yoWM who presented with respiratory insufficiency and hypercapnia due altered mental status requiring BiPAP while in inpatient rehab but needed close monitoring from cardiology and pulmonology standpoint after he was moved down to rehab yesterday. He has never had a sleep study and doesn't wear oxygen at night so he definitely has obesity hypoventilation syndrome from ABG findings consistent with approval for vent mask at discharge and will aggressively treat him and go back to inpatient rehab when able. Subjective/Events-last exam Patient doing much better He used his BiPAP last night On nasal cannula today and actually doing pretty well Taking a shower currently Denies any pain Bowels are moving well now Eating and drinking well Reviewed meds and labs Review of Systems Pulmonary: Dyspnea Objective Exam Vital Signs Vital Signs Date Time Temp Pulse Resp B/P (MAP) Pulse Ox O2 Delivery O2 Flow Rate FiO2 12/12/18 14:25 92 Nasal Cannula 2.00 12/12/18 11:13 36.6 61 20 157/76 (103) 12/12/18 08:00 30 Capillary Refill : Less Than 3 Seconds General Appearance: No Apparent Distress, WD/WN Respiratory: Chest Non Tender, Lungs Clear, Normal Breath Sounds, No Accessory Muscle Use, No Respiratory Distress Cardiovascular: Regular Rate, Rhythm, No Edema, No Gallop, No JVD, No Murmur, Normal Peripheral Pulses Neurologic/Psychiatric: Alert, Oriented x3, No Motor/Sensory Deficits, Normal Mood/Affect Results/Procedures Lab Laboratory Tests 12/12/18 04:55 12/12/18 05:05 Patient resulted labs reviewed. Assessment/Plan Assessment and Plan Assess & Plan/Chief Complaint Assessment: Hypercapnic and hypoxic respiratory failure Severe untreated sleep apnea with obesity hypoventilation syndrome Recent new onset atrial fibrillation with rapid ventricular response On oral anticoagulation Frequent left lower leg cellulitis Recent pneumonia COPD Chronic renal insufficiency Plan: Transfer to floor Monitor closely BiPAP along with Vapotherm when neede Monitor creatinine IRF back tomorrow? 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 insulin (5) Cellulitis of left lower extremity Status: Chronic (6) Myopathy Status: Acute (7) Diabetes Status: Chronic Qualifiers: Diabetes mellitus type: type 2 Diabetes mellitus usp insulin use: with long term acute care registered nurse use Diabetes mellitus complication status: with other specified complication Qualified Codes: E11.69 - Type 2 diabetes mellitus with other specified complication; Z79.4 - termite treater (current) use of insulin Clinical Quality Measures DVT/VTE Risk/Contraindication: Risk Factor Score Per Nursin RFS Level Per Nursing on Admit: 4+=Very High YARIEL BUI DO Dec 12, 2018 09:33
--- NOTE | 2018-12-12 10:46 | NUR ---
patient was doing good on NC so RT decreased O2 from 4 L to 2 L NC, will continue to titrate throughout the day if we can
--- NOTE | 2018-12-12 14:30 | NUR ---
at the end of Day's RT Shift patient was on 2 L NC and doing well at this time
--- NOTE | 2018-12-12 15:58 | Cardiology Progress Note ---
Cardiology SOAP Progress Note Subjective: Improved shortness of breath. Objective: I&O/Vital Signs 12/12/18 12/12/18 12/12/18 12/12/18 06:34 07:54 08:00 08:02 Temp 36.6 Pulse 62 Resp 22 B/P (MAP) 164/79 (107) Pulse Ox 94 94 97 O2 Delivery Vapotherm Nasal Cannula Vapotherm Nasal Cannula O2 Flow Rate 30.00 4.00 20.00 4.00 FiO2 35 30 12/12/18 12/12/18 12/12/18 12/12/18 10:40 10:40 11:13 11:13 Temp 36.6 Pulse 61 Resp 20 B/P (MAP) 157/76 (103) Pulse Ox 96 95 O2 Delivery Nasal Cannula Nasal Cannula Nasal Cannula Nasal Cannula O2 Flow Rate 4.00 2.00 3.00 2.00 12/12/18 14:25 Pulse Ox 92 O2 Delivery Nasal Cannula O2 Flow Rate 2.00 12/12/18 00:00 Intake Total 1080 ml Output Total 1100 ml Balance -20 ml Weight (Pounds): 260 Weight (Ounces): 0.0 Weight (Calculated Kilograms): 117.534228 Constitutional: AAO x 3, apparent distress Respiratory: accessory muscle use, respiratory distress, chest is bilaterally symmetric Cardiovascular: regular rate-rhythm, S1 and S2 Gastrointestional: soft, audible bowel sounds Extremities: normal range of motion, non-tender, normal inspection, no lower extremity edema bilateral Neurologic/Psychiatric: no motor/sensory deficits, alert, normal mood/affect, oriented x 3 Skin: normal color Results/Procedures: Labs Laboratory Tests 12/11/18 16:00: Urine Color YELLOW, Urine Clarity CLEAR, Urine pH 5, Urine Specific [place] 1.0 20, Urine Protein 3+H, Urine Glucose (UA) 3+H, Urine Ketones NEGATIVE, Urine Nitrite NEGATIVE, Urine Bilirubin 1+H, Urine Urobilinogen NORMAL, Urine Leukocyte Esterase NEGATIVE, Urine RBC (Auto) 3+H, Urine RBC RARE, Urine WBC 0- 2, Urine Squamous Epithelial Cells 5-10, Urine Crystals NONE, Urine Bacteria NEGATIVE, Urine Casts NONE, Urine Mucus NEGATIVE, Urine Culture Indicated NO 12/11/18 16:55: Glucometer 211H 12/11/18 20:11: Glucometer 200H 12/12/18 04:55: Sodium Level 138, Potassium Level 4.4, Chloride Level 106, Carbon Dioxide Level 26, Anion Gap 6, Blood Urea Nitrogen 44H, Creatinine 1.83H, Estimat Glomerular Filtration Rate 38, BUN/Creatinine Ratio 24, Glucose Level 230H, Calcium Level 8.5, Phosphorus Level 3.0, Magnesium Level 2.3 12/12/18 05:05: White Blood Count 7.9, Red Blood Count 3.16L, Hemoglobin 9.3L, Hematocrit 29L, Mean Corpuscular Volume 93, Mean Corpuscular Hemoglobin 29, Mean Corpuscular Hemoglobin Concent 32, Red Cell Distribution Width 14.0, Platelet Count 317, Mean Platelet Volume 9.7, Neutrophils (%) (Auto) 65, Lymphocytes (%) (Auto) 18, Monocytes (%) (Auto) 10, Eosinophils (%) (Auto) 6, Basophils (%) (Auto) 1, Neutrophils # (Auto) 5.1, Lymphocytes # (Auto) 1.4, Monocytes # (Auto) 0.8, Eosinophils # (Auto) 0.5H, Basophils # (Auto) 0.1 12/12/18 05:20: Glucometer 231H 12/12/18 05:50: Blood Gas Puncture Site LEFT RADIAL, Blood Gas Patient Temperature 36.4, Arterial Blood pH 7.33*L, Arterial Blood Partial Pressure CO2 53H, Arterial Blood Partial Pressure O2 109H, Arterial Blood HCO3 27, Arterial Blood Total CO2 28.9, Arterial Blood Oxygen Saturation 97, Arterial Blood Base Excess 1.7, Gurwinder Test POSITIVE, Blood Gas Ventilator Setting NO, Blood Gas Inspired Oxygen 35% BIPAP 12/12/18 11:10: Glucometer 185H Microbiology 12/11/18 Blood Culture - Preliminary, Resulted No growth 12/10/18 MRSA Screen - Final, Complete MRSA not isolated A/P: Assessment/Dx: Acute respiratory failure, pneumonia, sepsis, COPD exacerbation, Cellulitis, Acute on chronic renal failure, Atrial fibrillation, currently in sinus rhythm, Peripheral edema, Plan: Acute respiratory failure, acute exacerbation of COPD, managed by Dr. Contreras, currently on Cipro Pneumonia recovering, managed by primary care team Cellulitis, receiving antibiotics. Acute on chronic renal failure, continue to monitor renal function New-onset atrial fibrillation, back to sinus rhythm, change Cardizem to long- acting and monitor tolerance and response Morbid obesity, obesity hypoventilation syndrome and acute respiratory failure. Managed by Dr. Contreras Peripheral edema, chronic, echocardiogram showed normal left ventricular size and function with ejection fraction 55-60 percent, left atrial dilatation measuring 6.1 cm, mild mitral regurgitation, pulmonary hypertension with PA pressure 40-50 mmHg. Continue to monitor Coronary artery disease, history of cardiac catheterization done in 2014 showing coronary ectasia with slow flow, no significant obstructive disease. Conserv ative management Hypertension, elevated blood pressure, currently in respiratory failure, continue to monitor blood pressure Hyperlipidemia, monitor lipids Diabetes mellitus, followed and managed by primary care physician Thank you for your consultation. Please call me if you have any questions. Harish Colon MD, FACP, FACC, FSCAI, FHRS, CCDS Interventional Cardiology Cardiac Electrophysiology Vascular Medicine and Endovascular Interventions Renetta COLON MD Dec 12, 2018 15:58
[2018-12-12] MEDS ORDERED: RT-ALBUTEROL/IPRATROPIUM 3 ML (DUONEB) VIAL INH PRN (20:30)
[2018-12-12] MEDS: SIMvastatin 10 MG (ZOCOR) TAB PO SCH (20:34)
[2018-12-13] MEDS: DILTIAZEM 60 MG (CARDIZEM) TAB PO SCH ×2 (01:00→05:56)
[2018-12-13] MEDS: PIPERACILLIN/TAZOBACTAM (BULK) 4.5 GM in NS (IVPB) 100 ML IV SCH ×2 (01:10→08:48)
[2018-12-13] MEDS: RT-ALBUTEROL/IPRATROPIUM 3 ML (DUONEB) VIAL INH SCH ×2 (02:22→06:34)
[2018-12-13 04:00] VITALS: BP 176/82
[2018-12-13] MEDS: MULTIVIT W/MINERALS TAB (THERAGRAN M) PO SCH (05:56)
[2018-12-13] MEDS: ETODOLAC 300 MG (LODINE) CAP PO SCH (05:56)
[2018-12-13] MEDS: inSUlin ASPART (NovoLOG) 1 UNIT/0.01 ML (CHARGE PER UNIT) SQ SCH (05:56)
[2018-12-13] MEDS: metFORMIN 500 MG (GLUCOPHAGE) TAB PO SCH (05:56)
[2018-12-13] MEDS: CATHETER FLUSH 10 ML SYR IV SCH (05:58)
[2018-12-13 06:02] LABS: BASOPHILS % (AUTO) 0 % (0-10); EOSINOPHILS # (AUTO) 0.5 10^3/uL (0.0-0.3); EOSINOPHILS % (AUTO) 7 % (0-10); HEMATOCRIT 30 % (40-54); HEMOGLOBIN 9.7 G/DL (13.3-17.7); LYMPHOCYTES # (AUTO) 1.3 X 10^3 (1.0-4.0); LYMPHOCYTES % (AUTO) 17 % (12-44); MEAN CORPUSCULAR HEMOGLOBIN 30 PG (25-34); MEAN CORPUSCULAR HGB CONC 32 G/DL (32-36); MEAN CORPUSCULAR VOLUME 93 FL (80-99); MEAN PLATELET VOLUME 9.2 FL (7.4-10.4); MONOCYTES # (AUTO) 0.8 X 10^3 (0.0-1.0); MONOCYTES % (AUTO) 11 % (0-12); NEUTROPHILS # (AUTO) 4.9 X 10^3 (1.8-7.8); NEUTROPHILS % (AUTO) 65 % (42-75); PLATELET COUNT 347 10^3/uL (130-400); RED CELL DISTRIBUTION WIDTH 14.4 % (10.0-14.5); WHITE BLOOD COUNT 7.5 10^3/uL (4.3-11.0)
[2018-12-13 06:34] LABS: CALCIUM 8.7 MG/DL (8.5-10.1); CREATININE SERUM 1.63 MG/DL (0.60-1.30); MAGNESIUM 2.1 MG/DL (1.6-2.4); PHOSPHORUS 3.9 MG/DL (2.3-4.7); POTASSIUM 4.3 MMOL/L (3.6-5.0)
[2018-12-13] MEDS: POTASSIUM CL 10MEQ/50ML IVPB 50 ML IV SCH (06:44)
[2018-12-13] MEDS: MAGNESIUM 1 GM/100 ML IVPB 100 ML IV SCH (06:45)
[2018-12-13] MEDS: KCL 20 MEQ TAB (K-DUR) PO SCH ×2 (06:45)
--- NOTE | 2018-12-13 06:46 | NUR ---
magnesium & potassium not administered per protocol r/t bun & creatine.
--- NOTE | 2018-12-13 07:42 | Pulmonary Progress Note ---
Subjective Time Seen by a Provider: 08:29 Subjective/Events-last exam PT appears to be doing better. Sepsis Event Evaluation Height, Weight, BMI Height: 5'11" Weight: 260lbs. 0.0oz. [id number]; 34.62 BMI Method:Stated Exam Exam Vital Signs Date Time Temp Pulse Resp B/P (MAP) Pulse Ox O2 Delivery O2 Flow Rate FiO2 12/13/18 06:36 95 Nasal Cannula 2.00 12/13/18 04:00 36.0 62 24 176/82 (113) 96 Nasal Cannula 4.00 12/13/18 02:22 61 24 97 35.00 12/13/18 01:00 55 12/12/18 23:45 36.7 64 20 169/73 (105) 98 Nasal Cannula 4.00 12/12/18 23:32 61 24 97 35.00 12/12/18 22:11 96 Nasal Cannula 2.00 12/12/18 21:00 Nasal Cannula 2.00 12/12/18 20:00 36.7 69 22 152/69 (96) 94 Nasal Cannula 4.00 12/12/18 19:54 93 Nasal Cannula 2.00 12/12/18 18:28 93 Nasal Cannula 2.00 12/12/18 17:47 62 150/78 (102) 97 Nasal Cannula 2.00 12/12/18 16:00 36.8 63 20 191/76 (114) 96 Nasal Cannula 4.00 12/12/18 14:25 92 Nasal Cannula 2.00 12/12/18 11:13 Nasal Cannula 2.00 12/12/18 11:13 36.6 61 20 157/76 (103) 95 Nasal Cannula 3.00 12/12/18 10:40 Nasal Cannula 2.00 12/12/18 10:40 96 Nasal Cannula 4.00 12/12/18 08:02 36.6 62 22 164/79 (107) 97 Nasal Cannula 4.00 12/12/18 08:00 Vapotherm 20.00 30 12/12/18 07:54 94 Nasal Cannula 4.00 I & O 12/13/18 07:00 Intake Total 1760 ml Output Total 2650 ml Balance -890 ml Height & Weight Height: 5'11" Weight: 260lbs. 0.0oz. 117.644534ll; 34.62 BMI Method:Stated General Appearance: WD/WN, Chronically ill, Obese HEENT: PERRL/EOMI, Normal ENT Inspection, Pharynx Normal, Moist Mucous Membranes Neck: Full Range of Motion, Normal Inspection, Non Tender Respiratory: Chest Non Tender, Lungs Clear, Normal Breath Sounds, No Accessory Muscle Use, No Respiratory Distress, Decreased Breath Sounds Cardiovascular: Regular Rate, Rhythm, No Edema, No Gallop, No JVD, No Murmur, Normal Peripheral Pulses Capillary Refill: Less Than 3 Seconds Gastrointestinal: normal bowel sounds, non tender, soft Extremity: Normal Capillary Refill, Normal Inspection, Normal Range of Motion, Non Tender, No Calf Tenderness, No Pedal Edema Neurologic/Psychiatric: Alert, Oriented x3, No Motor/Sensory Deficits, Normal Mood/Affect Skin: Normal Color, Warm/Dry Lymphatic: No Adenopathy Results Lab Laboratory Tests 12/11/18 08:57 12/12/18 04:55 12/12/18 05:05 12/13/18 05:34 Assessment/Plan Assessment/Plan Acute on chronic respiratory failure with hypoxia -Pt used vent to mask through the night. He is currently on Vapotherm -PT states he uses his 's oxygen at home -C02 on admission 56 -PT will benefit from vent to mask. He is already doing better using vent to mask at night. -Will attempt to get pt a home vent to mask -Titrate Fi02 for Sp02 90-94% -SVN Pneumonia with sepsis - Zosyn -Check CT of chest S/p Bacteremia with strep -Repeat cultures - neg thus far Afib LLL cellulitis - IDDM Chronic anemia DEJA SMITH DO Dec 13, 2018 07:42
--- NOTE | 2018-12-13 07:54 | Diagnostic Imaging Report ---
INDICATION: Acute respiratory distress. Upright portable AP view of the chest is obtained with comparison made study of one day earlier. FINDINGS: There is continued cardiomegaly and pulmonary venous congestion. Basilar atelectasis and/or pneumonitis is again noted, greater on the right. There is blunting of the costophrenic sulci, greater on the right. IMPRESSION: Basilar atelectasis and/or pneumonitis with associated pleural fluid and/or thickening is greater on the right without significant change from previous study. Dictated by: Dictated on workstation # [id number]
[2018-12-13] MEDS: APIXABAN 5 MG (ELIQUIS) TABLET PO SCH (08:48)
[2018-12-13] MEDS: OMEGA 3 (FISH OIL) 1000 MG CAP PO SCH (08:48)
[2018-12-13] MEDS: meTOproloL SUCCINATE 50 MG (TOPROL XL) TAB PO SCH (08:48)
[2018-12-13] MEDS: AMIODARONE 200 MG (CORDARONE) TAB PO SCH (08:48)
[2018-12-13] MEDS: ASPIRIN 81 MG CHEW (CHILDREN'S ASA) PO SCH (08:49)
[2018-12-13] MEDS: MICONAZOLE 2% POWDER (DESENEX AF) 90 GM TOP SCH (08:50)
--- NOTE | 2018-12-13 08:55 | Discharge Summary ---
Diagnosis/Chief Complaint Date of Admission Dec 10, 2018 at 11:14 Date of Discharge Discharge Date: Dec 13, 2018 Discharge Diagnosis Assessment: Hypercapnic and hypoxic respiratory failure Severe untreated sleep apnea with obesity hypoventilation syndrome Recent new onset atrial fibrillation with rapid ventricular response On oral anticoagulation Frequent left lower leg cellulitis Recent pneumonia COPD Chronic renal insufficiency Plan: Transfer to floor Monitor closely BiPAP along with Vapotherm when neede Monitor creatinine IRF back tomorrow? Diagnosis/Problems Diagnosis/Problems (1) Hypercapnia Status: Acute (2) Hypoxia Status: Acute (3) Atrial fibrillation with rapid ventricular response Status: Acute (4) Diabetes mellitus with hyperglycemia Status: Chronic Qualifiers: Diabetes mellitus type: type 2 Diabetes mellitus extermination supervisor insulin use: with senior care use Qualified Codes: E11.65 - Type 2 diabetes mellitus with hyperglycemia; Z79.4 - keno terminal operator (current) use of insulin (5) Cellulitis of left lower extremity Status: Chronic (6) Myopathy Status: Acute (7) Diabetes Status: Chronic Qualifiers: Diabetes mellitus type: type 2 Diabetes mellitus extermination supervisor insulin use: with senior care use Diabetes mellitus complication status: with other specified complication Qualified Codes: E11.69 - Type 2 diabetes mellitus with other specified complication; Z79.4 - keno terminal operator (current) use of insulin Discharge Summary Discharge Physical Examination Allergies: Coded Allergies: NKANo Known Allergies (Verified Allergy, Unknown, 05/15/05) Vitals & I&Os Vital Signs Date Time Temp Pulse Resp B/P (MAP) Pulse Ox O2 Delivery O2 Flow Rate FiO2 12/13/18 06:36 95 Nasal Cannula 2.00 12/13/18 04:00 36.0 62 24 176/82 (113) 12/12/18 08:00 30 General Appearance: Alert, Oriented X3, Cooperative Respiratory: Clear to Auscultation Extremities: Other (edema) Hospital Course Was the Problem List Reviewed?: Yes Hospital course: Patient had a brief hospital course after he was moved from inpatient rehabilitation after 1 day due to respiratory insufficiency and hypercapnia. Patient was placed in the ICU maintained on BiPAP with close monitoring from cardiology and pulmonology. Dr. Miner continue to monitor lymphedema. Patient dramatically improved with the use of BiPAP and Vapotherm and then nasal cannula and did very well at night on the BiPAP. Overall he did well was able to go back to inpatient rehabilitation for final stabilization of his medical problems along with his breathing machinery in preparation of discharge. Labs (last 24 hrs) Laboratory Tests 12/10/18 15:34: Blood Gas Puncture Site L RAD, Blood Gas Patient Temperature 36.5, Arterial Blood pH 7.27*L, Arterial Blood Partial Pressure CO2 56H, Arterial Blood Partial Pressure O2 85, Arterial Blood HCO3 25, Arterial Blood Total CO2 27.1, Arterial Blood Oxygen Saturation 96, Arterial Blood Base Excess -0.8, Gurwinder Test YES-POS, Blood Gas Ventilator Setting NO, Blood Gas Inspired Oxygen 40% 12/10/18 18:25: Blood Gas Puncture Site R RAD, Blood Gas Patient Temperature 36.5, Arterial Blood pH 7.32*L, Arterial Blood Partial Pressure CO2 48H, Arterial Blood Partial Pressure O2 150H, Arterial Blood HCO3 24, Arterial Blood Total CO2 25.6, Arterial Blood Oxygen Saturation 99, Arterial Blood Base Excess -1.2, Gurwinder Test YES-POS, Blood Gas Ventilator Setting NO, Blood Gas Inspired Oxygen 40% 12/10/18 22:48: Glucometer 316H 12/11/18 02:43: Sodium Level 137, Potassium Level 5.5H, Chloride Level 105, Carbon Dioxide Level 22, Anion Gap 10, Blood Urea Nitrogen 38H, Creatinine 1.80H, Estimat Glomerular Filtration Rate 38, BUN/Creatinine Ratio 21, Glucose Level 276H, Calcium Level 8.5, Phosphorus Level 4.1, Magnesium Level 2.3 12/11/18 04:30: Blood Gas Puncture Site left radial artline, Blood Gas Patient Temperature 35.9, Arterial Blood pH 7.33*L, Arterial Blood Partial Pressure CO2 48H, Arterial Blood Partial Pressure O2 99H, Arterial Blood HCO3 25, Arterial Blood Total CO2 26.4, Arterial Blood Oxygen Saturation 98, Arterial Blood Base Excess -0.6, Gurwinder Test positive, Blood Gas Ventilator Setting NO, Blood Gas Inspired Oxygen 35% bipap 12/11/18 08:57: White Blood Count 10.8, Red Blood Count 3.39L, Hemoglobin 9.9L, Hematocrit 31L, Mean Corpuscular Volume 92, Mean Corpuscular Hemoglobin 29, Mean Corpuscular Hemoglobin Concent 32, Red Cell Distribution Width 14.0, Platelet Count 322, Mean Platelet Volume 9.6, Neutrophils (%) (Auto) 82H, Lymphocytes (%) (Auto) 8L, Monocytes (%) (Auto) 9, Eosinophils (%) (Auto) 1, Basophils (%) (Auto) 0, Neutrophils # (Auto) 8.9H, Lymphocytes # (Auto) 0.9L, Monocytes # (Auto) 1.0, Eosinophils # (Auto) 0.1, Basophils # (Auto) 0.0, B-Type Natriuretic Peptide 275.8H 12/11/18 11:19: Glucometer 328H 12/11/18 16:00: Urine Color YELLOW, Urine Clarity CLEAR, Urine pH 5, Urine Specific [place] 1.020, Urine Protein 3+H, Urine Glucose (UA) 3+H, Urine Ketones NEGATIVE, Urine Nitrite NEGATIVE, Urine Bilirubin 1+H, Urine Urobilinogen NORMAL, Urine Leukocyte Esterase NEGATIVE, Urine RBC (Auto) 3+H, Urine RBC RARE, Urine WBC 0- 2, Urine Squamous Epithelial Cells 5-10, Urine Crystals NONE, Urine Bacteria NEGATIVE, Urine Casts NONE, Urine Mucus NEGATIVE, Urine Culture Indicated NO 12/11/18 16:55: Glucometer 211H 12/11/18 20:11: Glucometer 200H 12/12/18 04:55: Sodium Level 138, Potassium Level 4.4, Chloride Level 106, Carbon Dioxide Level 26, Anion Gap 6, Blood Urea Nitrogen 44H, Creatinine 1.83H, Estimat Glomerular Filtration Rate 38, BUN/Creatinine Ratio 24, Glucose Level 230H, Calcium Level 8.5, Phosphorus Level 3.0, Magnesium Level 2.3 12/12/18 05:05: White Blood Count 7.9, Red Blood Count 3.16L, Hemoglobin 9.3L, Hematocrit 29L, Mean Corpuscular Volume 93, Mean Corpuscular Hemoglobin 29, Mean Corpuscular Hemoglobin Concent 32, Red Cell Distribution Width 14.0, Platelet Count 317, Mean Platelet Volume 9.7, Neutrophils (%) (Auto) 65, Lymphocytes (%) (Auto) 18, Monocytes (%) (Auto) 10, Eosinophils (%) (Auto) 6, Basophils (%) (Auto) 1, Neutrophils # (Auto) 5.1, Lymphocytes # (Auto) 1.4, Monocytes # (Auto) 0.8, Eos inophils # (Auto) 0.5H, Basophils # (Auto) 0.1 12/12/18 05:20: Glucometer 231H 12/12/18 05:50: Blood Gas Puncture Site LEFT RADIAL, Blood Gas Patient Temperature 36.4, Arterial Blood pH 7.33*L, Arterial Blood Partial Pressure CO2 53H, Arterial Blood Partial Pressure O2 109H, Arterial Blood HCO3 27, Arterial Blood Total CO2 28.9, Arterial Blood Oxygen Saturation 97, Arterial Blood Base Excess 1.7, Gurwinder Test POSITIVE, Blood Gas Ventilator Setting NO, Blood Gas Inspired Oxygen 35% BIPAP 12/12/18 11:10: Glucometer 185H 12/12/18 16:10: Glucometer 248H 12/12/18 21:12: Glucometer 313H 12/13/18 05:25: Glucometer 210H 12/13/18 05:34: White Blood Count 7.5, Red Blood Count 3.24L, Hemoglobin 9.7L, Hematocrit 30L, Mean Corpuscular Volume 93, Mean Corpuscular Hemoglobin 30, Mean Corpuscular Hemoglobin Concent 32, Red Cell Distribution Width 14.4, Platelet Count 347, Mean Platelet Volume 9.2, Neutrophils (%) (Auto) 65, Lymphocytes (%) (Auto) 17, Monocytes (%) (Auto) 11, Eosinophils (%) (Auto) 7, Basophils (%) (Auto) 0, Neutrophils # (Auto) 4.9, Lymphocytes # (Auto) 1.3, Monocytes # (Auto) 0.8, Eosinophils # (Auto) 0.5H, Basophils # (Auto) 0.0, Sodium Level 143, Potassium Level 4.3, Chloride Level 107, Carbon Dioxide Level 26, Anion Gap 10, Blood Urea Nitrogen 39H, Creatinine 1.63H, Estimat Glomerular Filtration Rate 43, BUN/Creatinine Ratio 24, Glucose Level 198H, Calcium Level 8.7, Phosphorus Level 3.9, Magnesium Level 2.1 Microbiology 12/11/18 Blood Culture - Preliminary, Resulted No growth 12/10/18 MRSA Screen - Final, Complete MRSA not isolated Pending Labs Microbiology Date/Time Source Procedure Growth Status 12/11/18 09:13 Peripheral Left Forearm Blood Culture - Preliminary No growth Resulted 12/11/18 09:05 Peripheral Rt Ac Blood Culture - Preliminary No growth Resulted 12/11/18 08:57 Peripheral Lt Ac Blood Culture - Preliminary No growth Resulted 12/10/18 12:35 Nasal MRSA Screen - Final MRSA not isolated Complete Laboratory Tests 12/10/18 15:34: Blood Gas Puncture Site L RAD, Blood Gas Patient Temperature 36.5, Arterial Blood pH 7.27, Arterial Blood Partial Pressure CO2 56, Arterial Blood Partial Pressure O2 85, Arterial Blood HCO3 25, Arterial Blood Total CO2 27.1, Arterial Blood Oxygen Saturation 96, Arterial Blood Base Excess -0.8, Gurwinder Test YES-POS, Blood Gas Ventilator Setting NO, Blood Gas Inspired Oxygen 40% 12/10/18 18:25: Blood Gas Puncture Site R RAD, Blood Gas Patient Temperature 36.5, Arterial Blood pH 7.32, Arterial Blood Partial Pressure CO2 48, Arterial Blood Partial Pressure O2 150, Arterial Blood HCO3 24, Arterial Blood Total CO2 25.6, Arterial Blood Oxygen Saturation 99, Arterial Blood Base Excess -1.2, Gurwinder Test YES-POS, Blood Gas Ventilator Setting NO, Blood Gas Inspired Oxygen 40% 12/10/18 22:48: Glucometer 316 12/11/18 02:43: Sodium Level 137, Potassium Level 5.5, Chloride Level 105, Carbon Dioxide Level 22, Anion Gap 10, Blood Urea Nitrogen 38, Creatinine 1.80, Estimat Glomerular Filtration Rate 38, BUN/Creatinine Ratio 21, Glucose Level 276, Calcium Level 8.5, Phosphorus Level 4.1, Magnesium Level 2.3 12/11/18 04:30: Blood Gas Puncture Site left radial artline, Blood Gas Patient Temperature 35.9, Arterial Blood pH 7.33, Arterial Blood Partial Pressure CO2 48, Arterial Blood P artial Pressure O2 99, Arterial Blood HCO3 25, Arterial Blood Total CO2 26.4, Arterial Blood Oxygen Saturation 98, Arterial Blood Base Excess -0.6, Gurwinder Test positive, Blood Gas Ventilator Setting NO, Blood Gas Inspired Oxygen 35% bipap 12/11/18 08:57: White Blood Count 10.8, Red Blood Count 3.39, Hemoglobin 9.9, Hematocrit 31, Mean Corpuscular Volume 92, Mean Corpuscular Hemoglobin 29, Mean Corpuscular Hemoglobin Concent 32, Red Cell Distribution Width 14.0, Platelet Count 322, Mean Platelet Volume 9.6, Neutrophils (%) (Auto) 82, Lymphocytes (%) (Auto) 8, Monocytes (%) (Auto) 9, Eosinophils (%) (Auto) 1, Basophils (%) (Auto) 0, Neutrophils # (Auto) 8.9, Lymphocytes # (Auto) 0.9, Monocytes # (Auto) 1.0, Eosinophils # (Auto) 0.1, Basophils # (Auto) 0.0, B-Type Natriuretic Peptide 275.8 12/11/18 11:19: Glucometer 328 12/11/18 16:00: Urine Color YELLOW, Urine Clarity CLEAR, Urine pH 5, Urine Specific [place] 1.020, Urine Protein 3+, Urine Glucose (UA) 3+, Urine Ketones NEGATIVE, Urine Nitrite NEGATIVE, Urine Bilirubin 1+, Urine Urobilinogen NORMAL, Urine Leukocyte Esterase NEGATIVE, Urine RBC (Auto) 3+, Urine RBC RARE, Urine WBC 0-2, Urine Squamous Epithelial Cells 5-10, Urine Crystals NONE, Urine Bacteria NEGATIVE, Urine Casts NONE, Urine Mucus NEGATIVE, Urine Culture Indicated NO 12/11/18 16:55: Glucometer 211 12/11/18 20:11: Glucometer 200 12/12/18 04:55: Sodium Level 138, Potassium Level 4.4, Chloride Level 106, Carbon Dioxide Level 26, Anion Gap 6, Blood Urea Nitrogen 44, Creatinine 1.83, Estimat Glomerular Filtration Rate 38, BUN/Creatinine Ratio 24, Glucose Level 230, Calcium Level 8.5, Phosphorus Level 3.0, Magnesium Level 2.3 12/12/18 05:05: White Blood Count 7.9, Red Blood Count 3.16, Hemoglobin 9.3, Hematocrit 29, Mean Corpuscular Volume 93, Mean Corpuscular Hemoglobin 29, Mean Corpuscular Hemoglobin Concent 32, Red Cell Distribution Width 14.0, Platelet Count 317, Mean Platelet Volume 9.7, Neutrophils (%) (Auto) 65, Lymphocytes (%) (Auto) 18, Monocytes (%) (Auto) 10, Eosinophils (%) (Auto) 6, Basophils (%) (Auto) 1, Neutrophils # (Auto) 5.1, Lymphocytes # (Auto) 1.4, Monocytes # (Auto) 0.8, Eosinophils # (Auto) 0.5, Basophils # (Auto) 0.1 12/12/18 05:20: Glucometer 231 12/12/18 05:50: Blood Gas Puncture Site LEFT RADIAL, Blood Gas Patient Temperature 36.4, Arterial Blood pH 7.33, Arterial Blood Partial Pressure CO2 53, Arterial Blood Partial Pressure O2 109, Arterial Blood HCO3 27, Arterial Blood Total CO2 28.9, Arterial Blood Oxygen Saturation 97, Arterial Blood Base Excess 1.7, Gurwinder Test POSITIVE, Blood Gas Ventilator Setting NO, Blood Gas Inspired Oxygen 35% BIPAP 12/12/18 11:10: Glucometer 185 12/12/18 16:10: Glucometer 248 12/12/18 21:12: Glucometer 313 12/13/18 05:25: Glucometer 210 12/13/18 05:34: White Blood Count 7.5, Red Blood Count 3.24, Hemoglobin 9.7, Hematocrit 30, Mean Corpuscular Volume 93, Mean Corpuscular Hemoglobin 30, Mean Corpuscular Hemoglobin Concent 32, Red Cell Distribution Width 14.4, Platelet Count 347, Mean Platelet Volume 9.2, Neutrophils (%) (Auto) 65, Lymphocytes (%) (Auto) 17, Monocytes (%) (Auto) 11, Eosinophils (%) (Auto) 7, Basophils (%) (Auto) 0, Neutrophils # (Auto) 4.9, Lymphocytes # (Auto) 1.3, Monocytes # (Auto) 0.8, Eosinophils # (Auto) 0.5, Basophils # (Auto) 0.0, Sodium Level 143, Potassium Level 4.3, Chloride Level 107, Carbon Dioxide Level 26, Anion Gap 10, Blood Urea Nitrogen 39, Creatinine 1.63, Estimat Glomerular Filtration Rate 43, BUN/Creatinine Ratio 24, Glucose Level 198, Calcium Level 8.7, Phosphorus Level 3.9, Magnesium Level 2.1 Discharge Home Medications: Active Scripts Active Reported Atorvastatin Calcium 80 Mg Tablet 80 Mg PO DAILY Aspirin EC (Aspirin) 81 Mg Tablet.dr 81 Mg PO DAILY Invokana (Canagliflozin) 100 Mg Tablet 100 Mg PO DAILY Diclofenac Sodium 75 Mg Tablet.dr 75 Mg PO BID Metformin HCl 1,000 Mg Tablet 1,000 Mg PO BID Toprol Xl (Metoprolol Succinate) 50 Mg Tab.er.24h 50 Mg PO DAILY Fish Oil 1,000 mg Softgel ([place]-3/Dha/Epa/Fish Oil) 1 Each Capsule 2,000 Mg PO DAILY [Vitamin Pack] 1 Packet PO DAILY Levemir Flextouch (Insulin Detemir) 100 Unit/1 Ml Insuln.pen 80 Units SQ BID Victoza 3-Jason (Liraglutide) 0.6 Mg/0.1 Ml Pen.injctr 1.8 Mg SQ HS Novolog Flexpen (Insulin Aspart) 300 Units/3 Ml Solution 60 Units SQ 1200 Instructions to patient/family Please see electronic discharge instructions given to patient. Diagnosis/Problems Diagnosis/Problems (1) Hypercapnia Status: Acute (2) Hypoxia Status: Acute (3) Atrial fibrillation with rapid ventricular response Status: Acute (4) Diabetes mellitus with hyperglycemia Status: Chronic Qualifiers: Qualified Codes: E11.65 - Type 2 diabetes mellitus with hyperglycemia; Z79.4 - keno terminal operator (current) use of insulin (5) Cellulitis of left lower extremity Status: Chronic (6) Myopathy Status: Acute (7) Diabetes Status: Chronic Qualifiers: Qualified Codes: E11.69 - Type 2 diabetes mellitus with other specified complication; Z79.4 - keno terminal operator (current) use of insulin Clinical Quality Measures DVT/VTE Risk/Contraindication: Risk Factor Score Per Nursin RFS Level Per Nursing on Admit: 4+=Very High YARIEL BUI DO Dec 13, 2018 08:55
--- NOTE | 2018-12-13 09:16 | Wound Care Assessment ---
Wound Care Assessment Date Seen by Provider: Dec 13, 2018 Time Seen by Provider: 08:15 Chief Complaint Bilateral foot ulcers. HPI The patient is a 63 year old male diabetic, former smoker, readmitted for respiratory failure, noted to have bilateral foot ulcers and bilateral calf swelling. The webspace ulcers are consistent with tinea pedis, and are treated with Nystatin and silver alginate. 12/13/18 Interval Note: The areas of injury are essentially resolved. Continue present regimen. He is recommended to follow-up in a Lymphedema Clinic. Will sign off. Smoking Status: Former Smoker Review of Systems Pulmonary: No Dyspnea Cardiovascular: No: Chest Pain Exam Vital Signs Date Time Temp Pulse Resp B/P (MAP) Pulse Ox O2 Delivery O2 Flow Rate FiO2 12/13/18 06:36 95 Nasal Cannula 2.00 12/13/18 04:00 36.0 62 24 176/82 (113) 12/12/18 08:00 30 Capillary Refill : Less Than 3 Seconds General Appearance: no apparent distress HEENT: normal ENT inspection Neck: normal inspection Cardiovascular: regular rate, rhythm Respiratory: normal breath sounds Gastrointestinal: normal bowel sounds, non tender Results Laboratory Tests 12/12/18 11:10: Glucometer 185H 12/12/18 16:10: Glucometer 248H 12/12/18 21:12: Glucometer 313H 12/13/18 05:25: Glucometer 210H 12/13/18 05:34: White Blood Count 7.5, Red Blood Count 3.24L, Hemoglobin 9.7L, Hematocrit 30L, Mean Corpuscular Volume 93, Mean Corpuscular Hemoglobin 30, Mean Corpuscular Hemoglobin Concent 32, Red Cell Distribution Width 14.4, Platelet Count 347, Mean Platelet Volume 9.2, Neutrophils (%) (Auto) 65, Lymphocytes (%) (Auto) 17, Monocytes (%) (Auto) 11, Eosinophils (%) (Auto) 7, Basophils (%) (Auto) 0, Neutrophils # (Auto) 4.9, Lymphocytes # (Auto) 1.3, Monocytes # (Auto) 0.8, Eosinophils # (Auto) 0.5H, Basophils # (Auto) 0.0, Sodium Level 143, Potassium Level 4.3, Chloride Level 107, Carbon Dioxide Level 26, Anion Gap 10, Blood Urea Nitrogen 39H, Creatinine 1.63H, Estimat Glomerular Filtration Rate 43, BUN/Creatinine Ratio 24, Glucose Level 198H, Calcium Level 8.7, Phosphorus Level 3.9, Magnesium Level 2.1 Microbiology 12/11/18 Blood Culture - Preliminary, Resulted No growth 12/10/18 MRSA Screen - Final, Complete MRSA not isolated Microbiology 12/11/18 Blood Culture - Preliminary, Resulted No growth Assessment/Plan/Dx 1. Tinea pedis. 2. Diabetes with foot ulcer. DAVID AYOUB MD Dec 13, 2018 09:16
--- NOTE | 2018-12-13 09:53 | Cardiology Progress Note ---
Subjective Date Seen by Provider: Dec 13, 2018 Time Seen by Provider: 09:50 Subjective/Events-last exam Patient is sitting in a chair, feeling better. No new complaint, breathing better Review of Systems General: No Chills, No Night Sweats, No Fatigue, No Malaise, No Appetite, No Other HEENT: No Head Aches, No Visual Changes, No Eye Pain, No Ear Pain, No Dysphasia, No Sinus Congestion, No Post Nasal Drip, No Sore Throat, No Other Pulmonary: No Dyspnea, No Cough, No Pleuritic Chest Pain, No Other Cardiovascular: No: Chest Pain, Palpitations, Orthopnea, Paroxysmal Noc. Dyspnea, Edema, Lt Headedness, Other Objective-Cardiology Exam Last Set of Vital Signs Vital Signs 12/12/18 12/13/18 12/13/18 08:00 04:00 06:36 Temp 36.0 Pulse 62 Resp 24 B/P (MAP) 176/82 (113) Pulse Ox 95 O2 Delivery Nasal Cannula O2 Flow Rate 2.00 FiO2 30 Capillary Refill : Less Than 3 Seconds I&O Intake and Output 12/13/18 00:00 Intake Total 1820 ml Output Total 2650 ml Balance -830 ml Intake Oral 1580 ml IV Total 240 ml Output Urine Total 2650 ml # Bowel Movements 2 General: Alert, Oriented X3, Cooperative Lungs: Clear to Auscultation Extremities: Other (edema) Results Lab Laboratory Tests 12/13/18 05:34 A/P-Cardiology Assessment/Plan Status post respiratory failure, acute exacerbation of COPD, tolerating BiPAP b cedrick, managed by primary care team. Pneumonia, improving, managed by primary care team Cellulitis, receiving antibiotics. Acute on chronic renal failure, continue to monitor renal function New-onset atrial fibrillation, back to sinus rhythm, change Cardizem to long- acting and monitor tolerance and response Morbid obesity, obesity hypoventilation syndrome and acute respiratory failure. Managed by Dr. Contreras Peripheral edema, chronic, echocardiogram showed normal left ventricular size and function with ejection fraction 55-60 percent, left atrial dilatation measuring 6.1 cm, mild mitral regurgitation, pulmonary hypertension with PA pressure 40-50 mmHg. Continue to monitor Coronary artery disease, history of cardiac catheterization done in 2014 showing coronary ectasia with slow flow, no significant obstructive disease. Conservative management Hypertension, elevated blood pressure, currently in respiratory failure, continue to monitor blood pressure Hyperlipidemia, monitor lipids Diabetes mellitus, followed and managed by primary care physician Clinical Quality Measures DVT/VTE Risk/Contraindication: Risk Factor Score Per Nursin RFS Level Per Nursing on Admit: 4+=Very High AMI SANTACRUZ MD Dec 13, 2018 09:53
--- NOTE | 2018-12-13 09:59 | NUR ---
CALLED DR. SMITH TO LET HIM KNOW PT REFUSED CT.
[2018-12-13 10:01] VITALS: BP 176/82
--- NOTE | 2018-12-13 10:15 | NUR ---
REHAB PERSONNEL CAME TO TRANSPORT PATIENT BY WHEELCHAIR
--- NOTE | 2018-12-13 10:15 | NUR ---
REPORT GIVEN TO REJI IN REHAB. WOUND DRESSING ORDERS GIVEN PER ORDERS AND PT REFUSAL OF CT WAS RELAYED.
[2018-12-13 10:30] VITALS: BP 176/82
[2018-12-13] MEDS ORDERED: RT-ALBUTEROL/IPRATROPIUM 3 ML (DUONEB) VIAL INH SCH (15:00)
== END 2018-12-13 10:20 | DRG 189 ==
LOC: ICU 11:14 → 4TH 12-11 16:44
PROVIDERS: ADMIT Internal Medicine; ATTEND Family Medicine
DX: J96.21 Acute and chronic respiratory failure with hypoxia (principal); J96.22 Acute and chronic respiratory failure with hypercapnia; L03.116 Cellulitis of left lower limb; E66.2 Morbid (severe) obesity with alveolar hypoventilation; N17.9 Acute kidney failure, unspecified; J44.1 Chronic obstructive pulmonary disease with (acute) exacerbation; E11.621 Type 2 diabetes mellitus with foot ulcer; L97.519 Non-pressure chronic ulcer of other part of right foot with unspecified severity; L97.529 Non-pressure chronic ulcer of other part of left foot with unspecified severity; I12.9 Hypertensive chronic kidney disease with stage 1 through stage 4 chronic kidney disease, or unspecified chronic kidney disease; N18.9 Chronic kidney disease, unspecified; I48.91 Unspecified atrial fibrillation; E11.65 Type 2 diabetes mellitus with hyperglycemia; D64.9 Anemia, unspecified; G72.9 Myopathy, unspecified; I89.0 Lymphedema, not elsewhere classified; R60.9 Edema, unspecified; I25.10 Atherosclerotic heart disease of native coronary artery without angina pectoris; E78.5 Hyperlipidemia, unspecified; E78.00 Pure hypercholesterolemia, unspecified; E11.40 Type 2 diabetes mellitus with diabetic neuropathy, unspecified; I27.20 Pulmonary hypertension, unspecified; B35.3 Tinea pedis; Z79.4 Long term (current) use of insulin; Z79.01 Long term (current) use of anticoagulants; Z87.891 Personal history of nicotine dependence; Z68.34 Body mass index [BMI] 34.0-34.9, adult
CPT/HCPCS: 36415; 36600; 71045; 80048; 81000; 82805; 82962; 83735; 83880; 84100; 85025; 87040; 87081; 94640; 94660; 94760

== ENCOUNTER 2018-12-13 10:05 | Inpatient (IN) | payer MEDICARE ==
[~2018-12-13] VITALS: Ht 180.3 cm; Wt 165.9 kg
[2018-12-13] VITALS (8 sets, daily range): BP systolic 175–205; BP diastolic 79–91
--- NOTE | 2018-12-13 10:25 | NUR ---
Pastoral care visit.
--- NOTE | 2018-12-13 10:30 | NUR ---
FUAD CARSON admitted to room 228-1, with an admitting diagnosis of debility, on 12/13/18 from med/surg floor via , accompanied by staff.FUAD CARSON introduced to surroundings, call light, bed controls, phone, TV, temperature control, lights, meal times, smoking policy, visitor policy, side rail policy, bathrooms and showers. Patient Rights given to patient in the handbook. FUAD CARSON verbalizes understanding that [facility] is not responsible for the loss or damage to any personal effects or valuables that are kept in the patients possessions during their hospitalization. The Patient's Care Plans were discussed with the patient as well as Discharge Planning. FUAD CARSON verbalizes understanding of Interdisciplinary Patient Education. Patient and/or family were informed about the Rapid Response Team and its purpose.
--- NOTE | 2018-12-13 11:23 | Physical Therapy Evaluation ---
PT Evaluation-General Medical Diagnosis Admission Date Dec 13, 2018 at 10:20 Medical Diagnosis: respiratory failure/sepsis/pneumonia/left LE cellulitis Onset Date: Dec 04, 2018 Therapy Diagnosis Therapy Diagnosis: impaired mobility, strength, endurance Height/Weight Height (Feet): 5 Height (Inches): 11 Weight (Pounds): 260 Weight (Ounces): 0.0 Referral Physician: Sandra Villagomez DO Medical History Pertinent Medical History: CAD, DM, HTN, Neuropathy Social History Home: Single Level Current Living Status: Spouse Entry Into Home: Stairs With Railing PT Steps Into Home: 3 Prior/Core FIM Prior Level of Function Therapy Code Descriptions/Definitions Functional Adams Measure: 0=Not Assessed/NA 4=Minimal Assistance 1=Total Assistance 5=Supervision or Setup 2=Maximal Assistance 6=Modified Adams 3=Moderate Assistance 7=Complete Adams Therapy Quality Codes: 6 Independent with activity with or without an assistive device 5 Patient requires set up or clean up by helper. Patient completes activity by themselves 4 Supervision or touching assist (CGA). [place] provide cues , steadying assist 3 The helper provides less than half the effort to complete the activity 2 The helper provides more than half the effort to complete the activity 1 Dependent. The helper does all the effort to complete an activity 7 Patient refused to complete or attempt activity 9 The patient did not perform the activity before the current illness or injury 88 Not attempted due to Medical conditions or safety concerns Functional Abilities and Goals: Independent: Patient completed the activities by him/herself, with or without an assistive device, with no assistance from a helper. Needed Some Help: Patient needed partial assistance from another person to complete activities. Dependent: A helper completed the activities for the patient. Unknown: Not Applicable: Bed Mobility: 7 Transfers (B,C,W/C) (FIM): 7 Gait: 7 Stairs: 7 Indoor Mobility (Ambulation): Independent Stairs: Independent PT Evaluation-Current Subjective Patient in chair pre tx, agrees to PT, no complaints of pain. Pt/Family Goals to be independent at home, increased endurance Objective Patient Orientation: Person, Place, Situation Attachments: Oxygen, IV ROM/Strength ROM Lower Extremities BLE limited generally due to obesity and LE edema Strenght Lower Extremities 4+/5 gross BLE Sensory Vision: Wears Glasses Hearing: Functional Sensation Right Lower Extremit: Impaired Sensation Left Lower Extremity: Impaired Transfers Therapy Code Descriptions/Definitions Functional Adams Measure: 0=Not Assessed/NA 4=Minimal Assistance 1=Total Assistance 5=Supervision or Setup 2=Maximal Assistance 6=Modified Adams 3=Moderate Assistance 7=Complete Adams Therapy Quality Codes: 6 Independent with activity with or without an assistive device 5 Patient requires set up or clean up by helper. Patient completes activity by themselves 4 Supervision or touching assist (CGA). [place] provide cues , steadying assist 3 The helper provides less than half the effort to complete the activity 2 The helper provides more than half the effort to complete the activity 1 Dependent. The helper does all the effort to complete an activity 7 Patient refused to complete or attempt activity 9 The patient did not perform the activity before the current illness or injury 88 Not attempted due to Medical conditions or safety concerns Transfers (B, C, W/C) (FIM): 5 Scootin Rollin Roll Left to Right (QC): 7 Supine to/from Sit: 0 Sit to/from Stand: 5 Sit to Lying (QC): 7 Lying to Sitting/Side of Bed(Q: 7 Sit to Stand (QC): 4 Chair/Swy-nz-Zcjjt Xfer(QC): 4 Car Transfer (QC): 4 No bed mobility performed, patient refused because he cannot breathe laying down. Patient performs sit <-> stand with SBA, transfers with SBA, car transfer SBA. Gait Does the Patient Walk?: Yes Mode of Locomotion: Walk Anticipated Mode of Locomotion: Walk Gait (FIM): 5 (household exception) Walk 10 feet (QC): 4 Walk 50 ft with 2 Turns(QC): 4 Walking 10ft/uneven surface-QC: 4 Distance: 120', 60'x2 Gait Level of Assist: 5 Gait Persons Needed: 1 Gait Assistive Device: FWW Comments/Gait Description Patient can ambulate 120' with a rolling walker with SBA (including 50' with at least 2 turns of 90 degrees and 10' over an uneven surface). Patient has slow but steady ambulation, gets SOB. Wheelchair Training Does the Pt Use a Wheelchair?: No Stairs Stairs (FIM): 1 #of Steps: 1 Level of Assist: 5 1 Step (curb) (QC): 4 Assistive Device: Walker Patient can go up and down 1 step using a rolling walker with SBA. Balance Sitting Static: Normal Sitting Dynamic: Normal Standing Static: Normal Standing Dynamic: Normal Treatment Parallel bars exercises BLE x15 (heel raises, mini-squats, marching, hip flex/abd, hamstring curls), LAQ alternating for 5 min Assessment/Needs Patient has impaired mobility, strength, endurance. He gets SOB with activity and needs frequent rest breaks to recover. Patient in recliner post tx with nurse call, phone, tray, all needs met. Rehab Potential: Fair PT Short Term Goals Short Term Goals Time Frame: Dec 20, 2018 Transfers (B,C,W/C) (FIM): 6 Gait (FIM): 5 Gait Distance Comment: 150' Gait Level of Assist: 5 Gait Assistive Device: FWW PT Prison Goals Prison Goals PT Weather Forecaster Goals Time Frame: Jan 03, 2019 Transfers (B,C,W/C) (FIM): 6 Sit to Lying (QC): 6 Lying-Sitting on Side/Bed(QC): 6 Sit to Stand (QC): 6 Rollin Roll Left to Right (QC): 6 Chair/Cfc-od-Ysovg Xfer(QC): 6 Car Transfer (QC): 6 Gait (FIM): 6 Distance: 200' Walk 10 feet (QC): 6 Walk 10ft-Uneven Surface(QC): 6 Walk 50ft with 2 Turns (QC): 6 Walk 150 ft (QC): 6 Gait Level of Assist: 6 Gait Assistive Device: FWW Stairs (FIM): 2 # of Steps: 4 1 Step (curb) (QC): 4 4 Steps (QC): 4 Stairs Level Of Assist: 5 PT Plan Problem List Problem List: Activity Tolerance, Functional Strength, Safety, Balance, Gait, Transfer, Bed Mobility, ROM Treatment/Plan Treatment Plan: Continue Plan of Care Treatment Plan: Bed Mobility, Education, Functional Activity Johanna, Functional Strength, Group Therapy, Gait, Safety, Therapeutic Exercise, Transfers Treatment Duration: Jan 03, 2019 Frequency: At least 5 of 7 days/Wk (IRF) Estimated Hrs Per Day: 1.5 hours per day Patient and/or Family Agrees t: Yes Safety Risks/Education Patient Education: Gait Training, Transfer Techniques, Steps, Correct Positioning, Safety Issues Teaching Recipient: Patient Teaching Methods: Demonstration, Discussion Response to Teaching: Reinforcement Needed Discharge Recommendations Plan Patient will perform bed mobility and transfer training, balance and endurance training, functional strengthening, stair training, gait training, and education, to improve functional mobility and independence at home. Therapy Discharge Recommendati: Other, See Comments (home with family) Time/GCodes Time In: 1030 Time Out: 1130 Total Billed Treatment Time: 60 Total Billed Treatment 1 visit EVM 30' EX 15' GT 15' MARINO VEGA PT Dec 13, 2018 11:23
--- NOTE | 2018-12-13 11:39 | NUR ---
Notified med tech of pt admission/transfer from .
--- NOTE | 2018-12-13 12:09 | Occupational Therapy Eval ---
OT Evaluation-General/PLF Medical Diagnosis Admission Date Dec 13, 2018 at 10:20 Medical Diagnosis: respiratory failure/sepsis/pneumonia/left LE cellulitis Onset Date: Dec 04, 2018 Therapy Diagnosis Therapy Diagnosis: decreased functional mobility and ADL function Height/Weight Height (Feet): 5 Height (Inches): 11 Weight (Pounds): 260 Weight (Ounces): 0.0 Precautions Precautions/Isolations: Standard Precautions Weight Bear Status Weight Bearing Restriction: Weight Bearing/Tolerated Referral Physician: Sandra Villagomez DO Referral Reason: Activity Tolerance, Self Care, Evaluation/Treatment, Strengthening/ROM Medical History Pertinent Medical History: CAD, DM, HTN, Neuropathy Current History Pt transferred from acute to ARU on 12/13/18 Reviewed History: Yes Social History Home: Single Level Current Living Status: Spouse Entry Into Home: Stairs With Railing Steps Into Home: 3 Steps Inside Home: 0 Pt's works outside the home 5 days a week. 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 Pt's has one child who is local, 3 of his own children around the [facility]. ADL-Prior Level of Function Therapy Code Descriptions/Definitions Functional [place] Measure: 0=Not Assessed/NA 4=Minimal Assistance 1=Total Assistance 5=Supervision or Setup 2=Maximal Assistance 6=Modified [place] 3=Moderate Assistance 7=Complete [place] Therapy Quality Codes: 6 Independent with activity with or without an assistive device 5 Patient requires set up or clean up by helper. Patient completes activity by themselves 4 Supervision or touching assist (CGA). [place] provide cues , steadying assist 3 The helper provides less than half the effort to complete the activity 2 The helper provides more than half the effort to complete the activity 1 Dependent. The helper does all the effort to complete an activity 7 Patient refused to complete or attempt activity 9 The patient did not perform the activity before the current illness or injury 88 Not attempted due to Medical conditions or safety concerns Functional Abilities and Goals: Independent: Patient completed the activities by him/herself, with or without an assistive device, with no assistance from a helper. Needed Some Help: Patient needed partial assistance from another person to complete activities. Dependent: A helper completed the activities for the patient. Unknown: Not Applicable: Self Care: Independent Functional Cognition: Independent DME/Equipment: Bath Chair, Grab Bars DME/Equipment Comments Pt utilizes built-in shower chair, one grab bar outside of shower, one grab bar inside shower, walk-in shower, grab bars near toilet, utilizes commode for arm rest support. Pt states IND within I/ADLs without use of AE. Occupation: disabled Drive Self: Yes OT Current Status Subjective Pt states no pain, states some difficulty breathing on this date but feeling "better." Pt states he has been taken from 4 to 2L of 02. Pt agreeable to OT evaluation. Pain Numeric Pain Scale: 0-No Pain Mental Status/Objective Patient Orientation: Person, Place, Time, Situation, Normal For Age Attachments: Oxygen (2L) Current Glasses/Contacts: Yes Hearing Aids: No Dentures/Partials: Yes Hand Dominance: Right Upper Extremity ROM WFL BUE Upper Extremity Coordination WFL BUE finger opposition Upper Extremity Sensation WFL BUE Neuropathy BLE Upper Extremity Strength WFL BUE (4+/5) ADL-Treatment Eating (FIM): 7 (Pt completes drinking with IND.) Eating (QC): 6 Grooming (FIM): 6 (Pt completes hair brushing within chair.) ADL FIMs to follow Other Treatments Pt alert and oriented; pt completes OT evaluation without noted SOB while talking, states he has been completing pursed lip breathing. Pt states he would like to complete ADL tasks such as showering within the afternoon period/ after lunch. Pt has no complaints and no questions. Pt educated of OT rehab role. Pt left in recliner, call light in reach, all needs met. Education OT Patient Education: Correct positioning, Purpose of tx/functional activities, Rehab process, Safety issues Teaching Recipient: Patient Teaching Methods: Demonstration, Discussion Response to Teaching: Verbalize Understanding, Return Demonstration OT Short Term Goals Short Term Goals Upper Body Dressing(FIM): 6 Lower Body Dressing(FIM): 5 Transfers (B,C,W/C) (FIM): 6 Additional Short Term Goals: 1-Demonstrate ADL Tasks, 2-Verbalize Understa nding, 3-ImproveStrength/Johanna 1=Demonstrate adherence to instructed precautions during ADL tasks. 2=Patient will verbalize/demonstrate understanding of assistive devices/modifications for ADL. 3=Patient will improve strength/tolerance for activity to enable patient to perform ADL's. OT Tornado Chaser Goals Senior Living Goals Eating (FIM): 7 Eating (QC): 6 Groomin Oral Hygiene (QC): 7 Bathing(FIM): 6 Shower/Bathe Self (QC): 6 Upper Body Dressing(FIM): 6 Upper Body Dressing (QC): 6 Lower Body Dressing(FIM): 6 Lower Body Dressing (QC): 6 On/Off Footwear (QC): 6 Toileting(FIM): 6 Toileting Hygiene (QC): 6 Transfers (B,C,W/C) (FIM): 7 Toilet/Commode Transfer(FIM): 6 Toilet/Commode Transfer (QC): 6 Tub Transfer(FIM): 6 Shower Transfer(FIM): 6 Additional Goals: 1-Demonstrate ADL Tasks, 2-Verbalize Understanding, 3- ImproveStrength/Johanna 1=Demonstrate adherence to instructed precautions during ADL tasks. 2=Patient will verbalize/demonstrate understanding of assistive devices/modifications for ADL. 3=Patient will improve strength/tolerance for activity to enable patient to perform ADL's. OT Education/Plan Problem List/Assessment Assessment: Decreased Activ Tolerance, Impaired I ADL's, Impaired Self-Care Skills Discharge Recommendations Plan/Recommendations: Continue POC Patient/Family Goals "get better" Treatment Plan/Plan of Care Treatment,Training & Education: Yes Patient would benefit from OT for education, treatment and training to promote independence in ADL's, mobility, safety and/or upper extremity function for ADL's. Plan of Care: ADL Retraining, Caregiver Training, Functional Mobility, Group Exercise/Act as Ind, UE Funct Exercise/Act Treatment Duration: Nov 28, 2019 Frequency: At least 5 of 7 days/Wk (IRF) Estimated Hrs Per Day: 1.5 hours per day Agreement: Yes Rehab Potential: Fair Time/GCodes Start Time: 11:32 Stop Time: 11:40 Total Time Billed (hr/min): 8 Billed Treatment Time 1 EVL, (8) CHRIS DELGADILLO OTAshley Dec 13, 2018 12:09
[2018-12-13] MEDS ORDERED: ACETAMINOPHEN 500 MG TAB (TYLENOL) PO PRN (13:00)
--- NOTE | 2018-12-13 13:28 | PM&R H&P / Post Admit Assess ---
History of Present Illness HPI/Chief Complaint CC: Respiratory insufficiency with weakness 12/10/18 admit CC/HPI: Chief complaint: Respiratory insufficiency with hypercapnia HPI: This is a 63yoWM who presented with respiratory insufficiency and hypercapnia due altered mental status requiring BiPAP while in inpatient rehab but needed close monitoring from cardiology and pulmonology standpoint after he was moved down to rehab yesterday. He has never had a sleep study and doesn't wear oxygen at night so he definitely has obesity hypoventilation syndrome from ABG findings consistent with approval for vent mask at discharge and will aggressively treat him and go back to inpatient rehab when able. 12/13/18 DC summary from med-surg: Hospital course: Patient had a brief hospital course after he was moved from inpatient rehabilitation after 1 day due to respiratory insufficiency and hypercapnia. Patient was placed in the ICU maintained on BiPAP with close monitoring from cardiology and pulmonology. Dr. Miner continue to monitor lymphedema. Patient dramatically improved with the use of BiPAP and Vapotherm and then nasal cannula and did very well at night on the BiPAP. Overall he did well was able to go back to inpatient rehabilitation for final stabilization of his medical problems along with his breathing machinery in preparation of discharge. HPI: Patient is ready to admit to rehab today. Patient now sleeps with biPAP and wears O2 NC during the day. Eating and drinking well and BM+. Patient is very weak and dyspneic on exertion so we will need to work on breathing with activity and have biPAP and O2 in place for DC once he is ready. Source: patient, RN/MD, old records Exam Limitations: no limitations Date Seen 12/13/18 Time Seen by a Provider: 13:00 Attending Physician Sandra Bui DO PCP Neymar Degroot MD Referring Physician Date of Admission Dec 13, 2018 at 10:20 Home Medications & Allergies Home Medications Reviewed patient Home Medication Reconciliation performed by pharmacy medication reconciliations special effects technician and/or nursing. Patients Allergies have been reviewed. Allergies Allergies Coded Allergies NKANo Known Allergies (Verified Allergy, Unknown, 05/15/05) Past Twhmulx-Tkqoym-Utbfwp Hx Past Med/Social Hx: Reviewed Nursing Past Med/Soc Hx, Reviewed and Corrections made Patient Social History Marrital Status: Employed/Student: unemployed Alcohol Use: Rarely Uses Number of Drinks Today: 0 Alcohol Beverage of Choice: Beer Recreational Drug Use: No Smoking Status: Former Smoker Former Smoker, Quit: Aug 15, 2005 Physical Abuse Screen: No Sexual Abuse: No Recent Foreign Travel: No Contact w/other who traveled: No Recent Hopitalizations: Yes Recent Infectious Disease Expo: No Immunizations Up To Date Tetanus Booster (TDap): More than 5yrs Seasonal Allergies Seasonal Allergies: No Past Medical History Surgeries: Abdominal, Cardiac Respiratory: COPD, Pneumonia Currently Using CPAP: No Currently Using BIPAP: Yes ([facility]) Cardiac: Atrial Fibrillation, Chronic Edema/Swelling, High Cholesterol, Hypertension Neurological: Neuropathy Reproductive: No Sexually Transmitted Disease: No Genitourinary: Renal Failure Gastrointestinal: Abdominal Hernia Musculoskeletal: Arthritis Endocrine: Diabetes, Insulin dep Are Your Blood Sugars Over 250: Yes (225-285) HEENT: Cataract Loss of Vision: Denies Hearing Impairment: Denies Psychosocial: Sleep Difficulties History of Blood Disorders: No Family History Diabetes mellitus 19 FATHER G8 BROTHER Hypertension G8 BROTHER Myocardial infarction 19 FATHER, Onset:50's - 60 Review of Systems Constitutional: see HPI, weakness Respiratory: dyspnea on exertion Cardiovascular: edema Physical Exam Exam Vital Signs Capillary Refill : General Appearance: No Apparent Distress, WD/WN, Chronically ill, Obese HEENT: PERRL/EOMI, Normal ENT Inspection, Pharynx Normal, Moist Mucous Membranes Neck: Full Range of Motion, Normal Inspection, Non Tender, Supple Respiratory: Chest Non Tender, Lungs Clear, No Accessory Muscle Use, No Respiratory Distress, Decreased Breath Sounds Cardiovascular: Regular Rate, Rhythm, No Gallop, No JVD, No Murmur Gastrointestinal: Normal Bowel Sounds, No Organomegaly, No Pulsatile Mass, Non Tender, Soft Back: Normal Inspection, No CVA Tenderness, No Vertebral Tenderness Extremity: Normal Capillary Refill, Normal Inspection, Normal Range of Motion, Non Tender, No Calf Tenderness, Pedal Edema Neurologic/Psychiatric: Alert, Oriented x3, No Motor/Sensory Deficits, Normal Mood/Affect, technology consultant II-XII Norm as Tested, Motor Weakness (generalized weakness lower legs) Skin: Normal Color, Warm/Dry Lymphatic: No Adenopathy Results Results/Procedures Labs Patient resulted labs reviewed. Assessment/Plan Assessment and Plan Assess & Plan/Chief Complaint Assessment: OHS now doing very well with biPAP and NC O2 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 CRI HTN New onset AF Plan: Wrap legs Monitor cellulitis Appreciate Cardiology, Pulmonology, Wound care (1) Respiratory insufficiency (2) Cellulitis of left lower extremity Status: Acute (3) Dehydration Status: Acute (4) Hyperkalemia Status: Acute (5) Acute renal failure Status: Acute (6) Back pain Status: Acute (7) Abdominal pain Status: Acute (8) Chest pain Status: Acute (9) Hypoxia Status: Acute (10) Atrial fibrillation with rapid ventricular response Status: Acute (11) Diabetes Status: Chronic (12) Hypercapnia Status: Acute (13) Myopathy Status: Acute (14) Cellulitis of left lower extremity Status: Chronic (15) Diabetes mellitus with hyperglycemia Status: Chronic (16) Chronic renal failure Status: Chronic (17) Obesity hypoventilation syndrome (18) Lymphedema Post Admission Physician Asses Date seen by provider: Dec 13, 2018 Time seen by provider: 13:00 Admisison Dx: (1) Myopathy Status: Acute (2) Respiratory insufficiency The preadmission screen agrees with the post admission assessment that the patient is a good candidate for inpatient rehabilitation. The patient will have a comprehensive program of inpatient rehabilitation with a goal of maximizing level of functional independence prior to discharge home with family. The patient will have PT/OT ninety minutes per day, each discipline, five days a week for gait, strengthening, conditioning, balance, ADLs, any patient/family/caregiver training as necessary. Speech therapy to do cognitive assessment and treat as indicated. Rehabilitation nursing to assist with bowel, bladder, skin, wound care, medication administration, pain management. Associate Store Manager to assist with discharge planning, community reentry. SCD's for DVT prophylaxis. He appears to be well motivated to participate in three hours of therapy a day. He should be able to tolerate three hours of therapy a day from a medical standpoint. He should benefit from the three hours of therapy a day. He has a reasonable discharge plan, reasonable discharge rehabilitation goals and a supportive family. He has various comorbidities that need to be closely monitored with medications and treatments adjusted on a daily basis as needed. These include: see list Barriers to discharge for this patient who had been independent prior to this are for him to be modified independent to supervision for ADLs and mobility skills prior to discharge home with family, so as to lessen the burden of the caregivers. Risks for this patient include: 1. Fall 2. Fracture 3. DVT 4. Pulmonary embolism 5. Wound infection 6. Skin breakdown 7. Contractures 8. Poorly controlled pain 9. Urinary retention 10. UTI 11. Respiratory infection 12. Aspiration Estimated Length of Stay: 7 days Prognosis: Rehab prognosis appears good for goal of discharge home with family modified independent to supervision for ADLs and mobility skills. SANDRA BUI DO Dec 13, 2018 13:28
[2018-12-13] MEDS ORDERED: DILTIAZEM 60 MG (CARDIZEM) TAB PO NR (13:30)
[2018-12-13] MEDS ORDERED: DILTIAZEM 60 MG (CARDIZEM) TAB ONE (13:36)
[2018-12-13] MEDS: RT-ALBUTEROL/IPRATROPIUM 3 ML (DUONEB) VIAL INH SCH ×2 (14:56→20:18)
--- NOTE | 2018-12-13 15:01 | Occupational Ther Daily Note ---
OT Current Status-Daily Note Subjective Pt seen in recliner, nursing present. Pt states no pain, but states his BP is high and he "doesn't think he should shower just yet." Pt agreeable to modified OT treatment session. Mental Status/Objective Patient Orientation: Normal For Age Therapy Code Descriptions/Definitions Functional [place] Measure: 0=Not Assessed/NA 4=Minimal Assistance 1=Total Assistance 5=Supervision or Setup 2=Maximal Assistance 6=Modified [place] 3=Moderate Assistance 7=Complete [place] Attachments: Oxygen (4L (increased)) ADL-Treatment Therapy Code Descriptions/Definitions Functional [place] Measure: 0=Not Assessed/NA 4=Minimal Assistance 1=Total Assistance 5=Supervision or Setup 2=Maximal Assistance 6=Modified [place] 3=Moderate Assistance 7=Complete [place] Therapy Quality Codes: 6 Independent with activity with or without an assistive device 5 Patient requires set up or clean up by helper. Patient completes activity by themselves 4 Supervision or touching assist (CGA). [place] provide cues , steadying assist 3 The helper provides less than half the effort to complete the activity 2 The helper provides more than half the effort to complete the activity 1 Dependent. The helper does all the effort to complete an activity 7 Patient refused to complete or attempt activity 9 The patient did not perform the activity before the current illness or injury 88 Not attempted due to Medical conditions or safety concerns Eating (FIM): 7 Eating (QC): 6 Upper Body (FIM): 6 (completes shirt doff/donning in chair, rest break needed after donning.) Upper Body Dressing (QC): 6 Toileting (FIM): 6 (Pt completes urination in urinal at recliner) Transfers (B, C, W/C) (FIM): 4 (Sit to stand CGA to SBA) Other Treatment Pt's BP at 197/85 at start of session. Pt stated hesitancy of activity. Pt's treatment session modified due to increased BP levels. Pt given breathing exercise HEP, pt and therapist practice step by step, pt requires cues for positioning and duration of breath. Pt completes diaphoramic breathing with c ounting from clinician. Pt completes 5 deep breaths and states, " I have to stop, I'm light headed." Pt rests and returns to shallow breathing, completes deep breathing 1x to return demonstrate competency with good abilities. Pt given energy conservation worksheet to read/ review. Pt states no questions regarding worksheet, stating there are good ideas. Pt's BP at 175/81 after seated ~15 minutes. COT/PT co-treat from [id number], 2 skilled therapists needed to work on higher level functional skills while monitoring vitals. OT worked on activity tolerance while standing, functional reach and UE movements; PT addressed functional kady ce and activity tolerance. Pt completed standing/ reaching activity, able to complete 5+ rings, reaching in multiple planes, requires rest break after ~30 seconds. Pt completes activity 4x, able to complete with rest breaks due to SOB. Pt stands to encourage standing endurance, stands 60 seconds without UE reaching activity, requires rest break after statement of one minute ernestine. Pt's vitals assessed: BP 193/86, 91% 02, and 68 BPM after standing. Pt agrees to modified sponge bath, able to pick out clothing items from bag. BP taken at 1440: 192/80. Pt completes partial sponge bath while seated. Pt able to wring wash cloth and wash UE, requiring assist reaching back/ drying all UE due to fatigue and SOB. Pt states he doesn't think he can complete LB washing at this time, stating too SOB. Pt wishes to return to BiPAP machine due to SOB, stating he doesn't "want to use it as a crutch," but also believes he did much better on the machine. Pt denies need to change LB dressing, left with call light in reach, all needs met. Nursing notified of pt's request of BiPAP. Education OT Patient Education: Correct positioning, Energy conservation, Modified ADL techniques, Purpose of tx/functional activities, Rehab process, Safety issues Teaching Recipient: Patient Teaching Methods: Demonstration, Handout, Discussion Response to Teaching: Verbalize Understanding, Return Demonstration OT Short Term Goals Short Term Goals Upper Body Dressing(FIM): 6 Lower Body Dressing(FIM): 5 Transfers (B,C,W/C) (FIM): 6 Additional Short Term Goals: 1-Demonstrate ADL Tasks, 2-Verbalize Un derstanding, 3-ImproveStrength/Johanna 1=Demonstrate adherence to instructed precautions during ADL tasks. 2=Patient will verbalize/demonstrate understanding of assistive devices/modifications for ADL. 3=Patient will improve strength/tolerance for activity to enable patient to perform ADL's. OT News Writer Goals News Writer Goals Eating (FIM): 7 Eating (QC): 6 Groomin Oral Hygiene (QC): 7 Bathing(FIM): 6 Shower/Bathe Self (QC): 6 Upper Body Dressing(FIM): 6 Upper Body Dressing (QC): 6 Lower Body Dressing(FIM): 6 Lower Body Dressing (QC): 6 On/Off Footwear (QC): 6 Toileting(FIM): 6 Toileting Hygiene (QC): 6 Transfers (B,C,W/C) (FIM): 7 Toilet/Commode Transfer(FIM): 6 Toilet/Commode Transfer (QC): 6 Tub Transfer(FIM): 6 Shower Transfer(FIM): 6 Additional Goals: 1-Demonstrate ADL Tasks, 2-Verbalize Understanding, 3-ImproveStrength/Johanna 1=Demonstrate adherence to instructed precautions during ADL tasks. 2=Patient will verbalize/demonstrate understanding of assistive devices/modifications for ADL. 3=Patient will improve strength/tolerance for activity to enable patient to perform ADL's. OT Education/Plan Problem List/Assessment Assessment: Decreased Activ Tolerance, Impaired I ADL's, Impaired Self-Care Skills Discharge Recommendations Plan/Recommendations: Continue POC Treatment Plan/Plan of Care Treatment,Training & Education: Yes Patient would benefit from OT for education, treatment and training to promote independence in ADL's, mobility, safety and/or upper extremity function for ADL's. Plan of Care: ADL Retraining, Caregiver Training, Functional Mobility, Group Exercise/Act as Ind, UE Funct Exercise/Act Treatment Duration: Nov 28, 2019 Frequency: At least 5 of 7 days/Wk (IRF) Estimated Hrs Per Day: 1.5 hours per day Agreement: Yes Rehab Potential: Fair Time/GCodes Start Time: 13:30 Stop Time: 14:50 Total Time Billed (hr/min): 80 Billed Treatment Time 1 FA (30), EX (30), ADL (20) OT/PT co-treat from [id number] CHRIS DELGADILLO OTR Dec 13, 2018 15:01
[2018-12-13] MEDS: PIPERACILLIN/TAZOBACTAM (BULK) 4.5 GM in NS (IVPB) 100 ML IV SCH ×2 (15:19→23:31)
[2018-12-13] MEDS: CATHETER FLUSH 10 ML SYR IV PRN (15:21)
--- NOTE | 2018-12-13 15:27 | Physical Therapy Daily Note ---
PT Daily Note-Current Subjective Pt reports he is feeling SOA. Reports he is having a hard time catching his breath and wonders if his oxygen can be turned up. Transfers Therapy Code Descriptions/Definitions Functional [place] Measure: 0=Not Assessed/NA 4=Minimal Assistance 1=Total Assistance 5=Supervision or Setup 2=Maximal Assistance 6=Modified [place] 3=Moderate Assistance 7=Complete [place] Therapy Quality Codes: 6 Independent with activity with or without an assistive device 5 Patient requires set up or clean up by helper. Patient completes activity by themselves 4 Supervision or touching assist (CGA). [place] provide cues , steadying assist 3 The helper provides less than half the effort to complete the activity 2 The helper provides more than half the effort to complete the activity 1 Dependent. The helper does all the effort to complete an activity 7 Patient refused to complete or attempt activity 9 The patient did not perform the activity before the current illness or injury 88 Not attempted due to Medical conditions or safety concerns Treatments Monitored oxygen saturations. Pt's sats were 91-93%, varied. Instructed pt in deep breathing technique. Nursing instructed to turn oxygen up to 4 l/min. Will plan to return later for further treatment Assessment SOA limits participation this visit. PT Short Term Goals Short Term Goals Time Frame: Dec 20, 2018 Transfers (B,C,W/C) (FIM): 6 Gait (FIM): 5 Gait Distance Comment: 150' Gait Level of Assist: 5 Gait Assistive Device: FWW PT Autistic Teacher Goals Chcf Goals PT Chcf Goals Time Frame: Jan 03, 2019 Transfers (B,C,W/C) (FIM): 6 Sit to Lying (QC): 6 Lying-Sitting on Side/Bed(QC): 6 Sit to Stand (QC): 6 Rollin Roll Left to Right (QC): 6 Chair/Pxd-hl-Oncvg Xfer(QC): 6 Car Transfer (QC): 6 Gait (FIM): 6 Distance: 200' Walk 10 feet (QC): 6 Walk 10ft-Uneven Surface(QC): 6 Walk 50ft with 2 Turns (QC): 6 Walk 150 ft (QC): 6 Gait Level of Assist: 6 Gait Assistive Device: FWW Stairs (FIM): 2 # of Steps: 4 1 Step (curb) (QC): 4 4 Steps (QC): 4 Stairs Level Of Assist: 5 PT Plan Problem List Problem List: Activity Tolerance, Functional Strength, Safety Treatment/Plan Treatment Plan: Continue Plan of Care Treatment Plan: Bed Mobility, Education, Functional Activity Johanna, Functional Strength, Group Therapy, Gait, Safety, Therapeutic Exercise, Transfers Treatment Duration: Jan 03, 2019 Frequency: At least 5 of 7 days/Wk (IRF) Estimated Hrs Per Day: 1.5 hours per day Patient and/or Family Agrees t: Yes Safety Risks/Education Education on deep breathing Discharge Recommendations Plan Return later to attempt further mobility Time/GCodes Time In: 1230 Time Out: 1240 Total Billed Treatment Time: 10 Total Billed Treatment visit FA 10 TERRA WITT PT Dec 13, 2018 15:27
--- NOTE | 2018-12-13 15:33 | Physical Therapy Daily Note ---
PT Daily Note-Current Subjective Pt continues to report feeling SOA and notes tightness around his abdomen area. Transfers Therapy Code Descriptions/Definitions Functional [place] Measure: 0=Not Assessed/NA 4=Minimal Assistance 1=Total Assistance 5=Supervision or Setup 2=Maximal Assistance 6=Modified [place] 3=Moderate Assistance 7=Complete [place] Therapy Quality Codes: 6 Independent with activity with or without an assistive device 5 Patient requires set up or clean up by helper. Patient completes activity by themselves 4 Supervision or touching assist (CGA). [place] provide cues , steadying assist 3 The helper provides less than half the effort to complete the activity 2 The helper provides more than half the effort to complete the activity 1 Dependent. The helper does all the effort to complete an activity 7 Patient refused to complete or attempt activity 9 The patient did not perform the activity before the current illness or injury 88 Not attempted due to Medical conditions or safety concerns Treatments Nursing present to hear patient complaints. Co treat with OT. Need for skill of 2 clinicians indicated as pt feeling SOA and need for 2 clinicians to address the task and monitor his tolerance. Upon starting treatment, O2 sats at 91% BP 175/81. Mid treatment, sats 91% and BP 193/86. Treatment consisted of static and dynamic standing balance activities with education on posture and energy use; as pt stood, OT addressed use of UE for functional tasks. Monitored pt tolerance and vitals. Pt required CGA for balance in standing as he worked his UE. Pt required frequent rest breaks. In standing with UE use, he was able to tolerate standing 25-30 seconds at a time; in static stance, he was able to stand x 1 minute. Reviewed safety and energy conservation with patient. Assessment Current Status: Fair Progress Continues to be limited by complaints of SOA. PT Short Term Goals Short Term Goals Time Frame: Dec 20, 2018 Transfers (B,C,W/C) (FIM): 6 Gait (FIM): 5 Gait Distance Comment: 150' Gait Level of Assist: 5 Gait Assistive Device: FWW PT Administrative Office Specialist Goals Administrative Office Specialist Goals PT Administrative Office Specialist Goals Time Frame: Jan 03, 2019 Transfers (B,C,W/C) (FIM): 6 Sit to Lying (QC): 6 Lying-Sitting on Side/Bed(QC): 6 Sit to Stand (QC): 6 Rollin Roll Left to Right (QC): 6 Chair/Uhd-kb-Xnewk Xfer(QC): 6 Car Transfer (QC): 6 Gait (FIM): 6 Distance: 200' Walk 10 feet (QC): 6 Walk 10ft-Uneven Surface(QC): 6 Walk 50ft with 2 Turns (QC): 6 Walk 150 ft (QC): 6 Gait Level of Assist: 6 Gait Assistive Device: FWW Stairs (FIM): 2 # of Steps: 4 1 Step (curb) (QC): 4 4 Steps (QC): 4 Stairs Level Of Assist: 5 PT Plan Problem List Problem List: Activity Tolerance, Functional Strength, Safety Treatment/Plan Treatment Plan: Bed Mobility, Education, Functional Activity Johanna, Functional Strength, Group Therapy, Gait, Safety, Therapeutic Exercise, Transfers Treatment Duration: Jan 03, 2019 Frequency: At least 5 of 7 days/Wk (IRF) Estimated Hrs Per Day: 1.5 hours per day Patient and/or Family Agrees t: Yes Time/GCodes Time In: 1400 Time Out: 1430 Total Billed Treatment Time: 30 Total Billed Treatment visit NM 30 TERRA WITT PT Dec 13, 2018 15:33
--- NOTE | 2018-12-13 15:37 | ST Cognitive Linguistic Eval ---
Speech Evaluation-General Medical Diagnosis respiratory failure/sepsis/pneumonia/left LE cellulitis Onset Date: Dec 04, 2018 Therapy Diagnosis Therapy Diagnosis: Cognitive-communication Precautions Precautions: Fall Precautions/Isolations: Standard Precautions Referral Referring Physician: Dr. Villagomez Reason for Referral: Evaluation/Treatment Medical History Pertinent Medical History: CAD, DM, HTN, Neuropathy CAD, DM, HTN, Neuropathy Current History Respiratory failure, sepsis, pneumonia, left LE celluitisi Reviewed History: Yes Social History Home: Single Level Current Living Status: Spouse Speech PLF-Current Status Prior Level of Function Patient lives at home with his where he was independent for much of his daily needs. Subjective Patient was pleasant and cooperative with the cognitive assessment. Language Eval: Auditory Comprehends Simple Yes/No Ques: Functional Indent/Objects Multiple [place]: Functional Ident/Pics in Multiple [place]: Functional Follows 1-Step Commands: Functional Follows Complex Directions: Functional Follows General Conversations: Functional Language Eval: Verbal Language Completes Spontaneous Greeting: Functional Produces Auto, Serial Info: Functional Imitates Simple Words/Phrases: Functional Word Finding: Functional Requests Basic Needs: Functional States Basic Personal Info: Functional Expresses Complex Ideas: Functional Objective Cognitive Domain Attention: WNL Memory: Mild Problem Solving: Functional Executive Functions: WNL Visuospatial Skills: WNL Composite Severity Rating: WNL Clock Drawing Severity Rating: WNL Objective Formal/Standardized Tests [facility] Mental Status ([facility]) Results Patient scored 28/30, within normal range Oral Motor/Speech Production Within Functional Limits Impression The patient is a pleasant 63 year old man who was admitted to the ARU s/p respiratory failure. The patient had spent one day on the ARU, however he was discharged to the acute side due to decline in respiratory function. He has returned with placement on a BIPAP. He is doing much better. He was given the SLUMS with a score of 28/30 which falls within the normal range. He will not be receiving skilled cognitive therapy at this time. Communication/Social Cognition Comprehension: 7 Expression: 7 Social Interaction: 7 Problem Solvin Memory: 7 Speech Patient Assess Expression of Ideas/Wants: Expression (4) Understanding Verbal Content: Understands (4) Brief Interview-Mental Status: Yes Repetition of Three Words: Three (3) Temporal Orientation: Year: Correct (3) Temporal Orientation: Month: Accurate within 5 days(2) Temporal Orientation: Day: Correct (1) Recall : Wear to say "Sock": Yes, no cue required (2) Recall : Color: Yes, no cue required (2) Recall : Bed: Yes,after cueing (1) Memory/Recall Ability: Current season, Location of own room, That he or she is in a hsp/hsp unit Speech-Plan Patient/Family Goals Patient/Family Goals: The patient plans on returning to his home post rehab. Treatment Plan Speech Therapy Treatment Plan: Discontinue ST Patient does not require skilled ST at this time. Treatment Duration: Dec 13, 2018 Frequency: 1 time per week Estimated Hrs Per Day: .25 hour per day Rehab Potential: Fair Barriers to Learning: None identified Pt/Family Agrees to Plan: Yes Safety Risks/Education Teaching Recipient: Patient Teaching Methods: Discussion Response to Teaching: Verbalize Understanding Education Topics Provided: Safety within his room. Time Speech Therapy Time In: 15:15 Speech Therapy Time Out: 15:30 Total Billed Time: 15 Billed Treatment Time 1, SPSNDCHITRAP GEOVANNY Penn Dec 13, 2018 15:37
[2018-12-13] MEDS ORDERED: LOSARTAN 100 MG (COZAAR) TABLET PO ONE (17:15)
[2018-12-13] MEDS ORDERED: LOSARTAN 100 MG (COZAAR) TABLET ONE (17:20)
[2018-12-13] MEDS: DILTIAZEM 60 MG (CARDIZEM) TAB PO SCH ×2 (17:28→23:30)
[2018-12-13] MEDS: ETODOLAC 300 MG (LODINE) CAP PO SCH (17:29)
[2018-12-13] MEDS: inSUlin ASPART (NovoLOG) 1 UNIT/0.01 ML (CHARGE PER UNIT) SQ SCH ×2 (17:39→20:45)
[2018-12-13] MEDS ORDERED: FLU QUADRIvalent (5+ YOA) 2019-2020 (AFLURIA) 0.5 ML IM ONE (20:00)
[2018-12-13] MEDS: OMEGA 3 (FISH OIL) 1000 MG CAP PO SCH (20:45)
[2018-12-13] MEDS: AMIODARONE 200 MG (CORDARONE) TAB PO SCH (20:45)
[2018-12-13] MEDS: SIMvastatin 10 MG (ZOCOR) TAB PO SCH (20:48)
[2018-12-13] MEDS: APIXABAN 5 MG (ELIQUIS) TABLET PO SCH (20:48)
[2018-12-14] MEDS: RT-ALBUTEROL/IPRATROPIUM 3 ML (DUONEB) VIAL INH SCH ×3 (02:57→22:24)
[2018-12-14 05:21] VITALS: BP 142/75
[2018-12-14] MEDS: DILTIAZEM 60 MG (CARDIZEM) TAB PO SCH (05:46)
[2018-12-14] MEDS: ETODOLAC 300 MG (LODINE) CAP PO SCH ×2 (05:46→16:29)
[2018-12-14] MEDS: MULTIVIT W/MINERALS TAB (THERAGRAN M) PO SCH (05:47)
[2018-12-14] MEDS: inSUlin ASPART (NovoLOG) 1 UNIT/0.01 ML (CHARGE PER UNIT) SQ SCH ×4 (05:47→22:08)
[2018-12-14] MEDS: PIPERACILLIN/TAZOBACTAM (BULK) 4.5 GM in NS (IVPB) 100 ML IV SCH ×3 (06:56→22:05)
--- NOTE | 2018-12-14 08:14 | Cardiology Progress Note ---
Subjective Date Seen by Provider: Dec 14, 2018 Time Seen by Provider: 08:12 Subjective/Events-last exam patient is sitting in a chair, using BiPAP, feeling better Review of Systems General: No Chills, No Night Sweats, No Fatigue, No Malaise, No Appetite, No Other HEENT: No Head Aches, No Visual Changes, No Eye Pain, No Ear Pain, No Dysphasia, No Sinus Congestion, No Post Nasal Drip, No Sore Throat, No Other Pulmonary: Dyspnea; No Cough, No Pleuritic Chest Pain, No Other Cardiovascular: Edema; No: Chest Pain, Palpitations, Orthopnea, Paroxysmal Noc. Dyspnea, Lt Headedness, Other Objective-Cardiology Exam Last Set of Vital Signs Vital Signs 12/13/18 12/14/18 12/14/18 21:00 05:21 07:21 Temp 36.8 Pulse 90 Resp 17 B/P (MAP) 142/75 (97) Pulse Ox 95 O2 Delivery NIV Bilevel O2 Flow Rate 35.00 FiO2 35 Capillary Refill : I&O Intake and Output 12/14/18 00:00 Intake Total 500 ml Output Total 1000 ml Balance -500 ml Intake Oral 500 ml Output Urine Total 1000 ml # Bowel Movements 1 Daily Weight Change No General: Alert, Oriented X3, Cooperative HEENT: Atraumatic, PERRLA Neck: Supple, No JVD, No Thyromegaly Lungs: Clear to Auscultation, Normal Air Movement Heart: Regular Rate, Normal S1, Normal S2, No Murmurs Abdomen: Normal Bowel Sounds, Soft, No Tenderness, No Hepatosplenomegaly, No Masses Extremities: No Clubbing, No Cyanosis, No Edema, Normal Pulses, No Tenderness/Swelling Skin: No Rashes, No Breakdown, No Significant Lesion Neuro: Normal Gait, Normal Speech, Strength at 5/5 X4 Ext, Normal Tone, Sensation Intact Psych/Mental Status: Mental Status NL, Mood NL A/P-Cardiology Admission Diagnosis Acute exacerbation of COPD Acute respiratory failure Hypertension Acute atrial fibrillation Assessment/Plan COPD, acute exacerbation, using BiPAP, managed by primary care team Hypertension, difficult to control, started on losartan yesterday, I'll change Cardizem to CD 240 daily and will evaluate tolerance and response. Pneumonia, improving, managed by primary care team Cellulitis, receiving antibiotics. Acute on chronic renal failure, continue to monitor renal function New-onset atrial fibrillation, back to sinus rhythm, change Cardizem to long- acting and monitor tolerance and response Morbid obesity, obesity hypoventilation syndrome and acute respiratory failure. Managed by Dr. Contreras Peripheral edema, chronic, echocardiogram showed normal left ventricular size and function with ejection fraction 55-60 percent, left atrial dilatation measuring 6.1 cm, mild mitral regurgitation, pulmonary hypertension with PA pressure 40-50 mmHg. Continue to monitor Coronary artery disease, history of cardiac catheterization done in 2014 showing coronary ectasia with slow flow, no significant obstructive disease. Conservative management Hyperlipidemia, monitor lipids Diabetes mellitus, followed and managed by primary care physician Clinical Quality Measures DVT/VTE Risk/Contraindication: Risk Factor Score Per Nursin RFS Level Per Nursing on Admit: 4+=Very High AMI SANTACRUZ MD Dec 14, 2018 08:14
[2018-12-14 08:46] VITALS: BP 160/76
[2018-12-14] MEDS: meTOproloL SUCCINATE 50 MG (TOPROL XL) TAB PO SCH (08:47)
[2018-12-14] MEDS: ASPIRIN 81 MG CHEW (CHILDREN'S ASA) PO SCH (08:48)
[2018-12-14] MEDS: OMEGA 3 (FISH OIL) 1000 MG CAP PO SCH ×2 (08:48→20:56)
[2018-12-14] MEDS: APIXABAN 5 MG (ELIQUIS) TABLET PO SCH ×2 (08:48→20:56)
[2018-12-14] MEDS: AMIODARONE 200 MG (CORDARONE) TAB PO SCH ×2 (08:48→20:56)
[2018-12-14] MEDS: LOSARTAN 100 MG (COZAAR) TABLET PO SCH (08:49)
[2018-12-14] MEDS: DILTIAZEM 240 MG (CARDIZEM CD) CAP PO SCH (09:21)
[2018-12-14] MEDS: MICONAZOLE 2% POWDER (DESENEX AF) 90 GM TOP SCH (09:45)
--- NOTE | 2018-12-14 10:21 | PM&R Progress Note ---
Subjective HPI/CC On Admission Date Seen by Provider: Dec 14, 2018 Time Seen by Provider: 09:00 CC: Respiratory insufficiency with weakness 12/10/18 admit CC/HPI: Chief complaint: Respiratory insufficiency with hypercapnia HPI: This is a 63yoWM who presented with respiratory insufficiency and hypercapnia due altered mental status requiring BiPAP while in inpatient rehab but needed close monitoring from cardiology and pulmonology standpoint after he was moved down to rehab yesterday. He has never had a sleep study and doesn't wear oxygen at night so he definitely has obesity hypoventilation syndrome from ABG findings consistent with approval for vent mask at discharge and will aggressively treat him and go back to inpatient rehab when able. 12/13/18 DC summary from med-surg: Hospital course: Patient had a brief hospital course after he was moved from inpatient rehabilitation after 1 day due to respiratory insufficiency and hypercapnia. Patient was placed in the ICU maintained on BiPAP with close monitoring from cardiology and pulmonology. Dr. Miner continue to monitor lymphedema. Patient dramatically improved with the use of BiPAP and Vapotherm and then nasal cannula and did very well at night on the BiPAP. Overall he did well was able to go back to inpatient rehabilitation for final stabilization of his medical problems along with his breathing machinery in preparation of discharge. HPI: Patient is ready to admit to rehab today. Patient now sleeps with biPAP and wears O2 NC during the day. Eating and drinking well and BM+. Patient is very weak and dyspneic on exertion so we will need to work on breathing with activity and have biPAP and O2 in place for DC once he is ready. Subjective/Events-last exam BP remains elevated at 205/91. Dr. Gutiérrez ordered Losartan 100 mg daily first dose now. Cardizem was changed from 60mg Q6 to 240 Mg CD daily. Bowel movement yesterday. Telemetry will be decided to be continued by Dr. Gutiérrez. Requiring BiPAP a lot when he exerts himself. Dr. Contreras is appreciated in consultation as is Dr. Gutiérrez. Conferred with RN Reviewed therapy notes Checked meds and labs Review of Systems General: Fatigue Pulmonary: Dyspnea Objective Exam Vital Signs Vital Signs Date Time Temp Pulse Resp B/P (MAP) Pulse Ox O2 Delivery O2 Flow Rate FiO2 12/14/18 18:27 174/80 (111) 12/14/18 16:56 36.4 63 22 96 Nasal Cannula 3.50 12/13/18 21:00 35 Capillary Refill : General Appearance: No Apparent Distress, WD/WN, Chronically ill, Obese HEENT: PERRL/EOMI, Normal ENT Inspection, Pharynx Normal, Moist Mucous Membranes Neck: Full Range of Motion, Normal Inspection, Non Tender, Supple Respiratory: Chest Non Tender, Lungs Clear, No Accessory Muscle Use, No Respiratory Distress, Decreased Breath Sounds Cardiovascular: Regular Rate, Rhythm, No Gallop, No JVD, No Murmur Gastrointestinal: Normal Bowel Sounds, No Organomegaly, No Pulsatile Mass, Non Tender, Soft Back: Normal Inspection, No CVA Tenderness, No Vertebral Tenderness Extremity: Normal Capillary Refill, Normal Inspection, Normal Range of Motion, Non Tender, No Calf Tenderness, Pedal Edema Neurologic/Psychiatric: Alert, Oriented x3, No Motor/Sensory Deficits, Normal Mood/Affect, 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 FIM Transfers Therapy Code Descriptions/Definitions Functional [place] Measure: 0=Not Assessed/NA 4=Minimal Assistance 1=Total Assistance 5=Supervision or Setup 2=Maximal Assistance 6=Modified [place] 3=Moderate Assistance 7=Complete [place] Therapy Quality Codes: 6 Independent with activity with or without an assistive device 5 Patient requires set up or clean up by helper. Patient completes activity by themselves 4 Supervision or touching assist (CGA). [place] provide cues , steadying assist 3 The helper provides less than half the effort to complete the activity 2 The helper provides more than half the effort to complete the activity 1 Dependent. The helper does all the effort to complete an activity 7 Patient refused to complete or attempt activity 9 The patient did not perform the activity before the current illness or injury 88 Not attempted due to Medical conditions or safety concerns Transfers (B, C, W/C) (FIM): 4 (Sit to stand CGA to SBA) Scootin Rollin Roll Left to Right (QC): 7 Supine to/from Sit: 0 Sit to/from Stand: 5 Sit to Lying (QC): 7 Sit to Stand (QC): 4 Chair/Qik-pb-Hxhzw Xfer(QC): 4 Car Transfer (QC): 4 Gait Training Does the Patient Walk?: Yes Gait (FIM): 5 (household exception) Walk 10 feet (QC): 4 Walk 50 ft with 2 Turns(QC): 4 Walking 10ft/uneven surface-QC: 4 Gait Level of Assist: 5 Gait Persons Needed: 1 Gait Assistive Device: FWW Wheelchair Training Does the Pt Use a Wheelchair?: No Stair Training Stairs (FIM): 1 #of Steps: 1 1 Step (curb) (QC): 4 Level of Assist: 5 Mental Status/Objective Comprehension: 7 Expression: 7 Social Interaction: 7 Problem Solvin Memory: 7 ADL-Treatment Feedin Eating (QC): 6 Groomin (Pt completes hair brushing within chair.) Upper Extremity Dressin (completes shirt doff/donning in chair, rest break needed after donning.) Upper Body Dressing (QC): 6 Toiletin (Pt completes urination in urinal at recliner) Assessment/Plan Assessment and Plan Assess & Plan/Chief Complaint Assessment: OHS now doing very well with biPAP and NC O2 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 CRI HTN New onset AF DM Lymphedema Plan: Wrap legs Monitor cellulitis Appreciate Cardiology, Pulmonology, Wound care Lymphedema treatment BiPAP, O2 (1) Myopathy Status: Acute (2) Respiratory insufficiency (3) Dehydration Status: Acute (4) Hyperkalemia Status: Acute (5) Acute renal failure Status: Acute (6) Back pain Status: Acute (7) Diabetes Status: Chronic (8) Hypercapnia Status: Acute (9) Hypoxia Status: Acute (10) Abdominal pain Status: Acute (11) Chest pain Status: Acute (12) Atrial fibrillation with rapid ventricular response Status: Acute (13) Cellulitis of left lower extremity Status: Acute (14) Cellulitis of left lower extremity Status: Chronic (15) Diabetes mellitus with hyperglycemia Status: Chronic (16) Lymphedema (17) Obesity hypoventilation syndrome (18) Chronic renal failure Status: Chronic YARIEL BUI DO Dec 14, 2018 10:21
--- NOTE | 2018-12-14 10:25 | Occupational Ther Daily Note ---
OT Current Status-Daily Note Subjective Pt sitting in chair with Bi-pap in place. He is agreeable to treatment, but states he is not able to tolerate nasal cannula, so will need to stay on bi-pap. Pt denies pain at this time. RN reports pt is able to participate as tolerated. Mental Status/Objective Therapy Code Descriptions/Definitions Functional [place] Measure: 0=Not Assessed/NA 4=Minimal Assistance 1=Total Assistance 5=Supervision or Setup 2=Maximal Assistance 6=Modified [place] 3=Moderate Assistance 7=Complete [place] Attachments: IV, Oxygen (bi-pap) ADL-Treatment Reviewed use of adaptive equipment for LE ADLs and energy conservation for task completion. Pt states understanding. Pt is able to doff socks without AE. Donned bilateral socks with increased time using sock aid while seated in chair. Therapy Code Descriptions/Definitions Functional [place] Measure: 0=Not Assessed/NA 4=Minimal Assistance 1=Total Assistance 5=Supervision or Setup 2=Maximal Assistance 6=Modified [place] 3=Moderate Assistance 7=Complete [place] Therapy Quality Codes: 6 Independent with activity with or without an assistive device 5 Patient requires set up or clean up by helper. Patient completes activity by themselves 4 Supervision or touching assist (CGA). [place] provide cues , steadying assist 3 The helper provides less than half the effort to complete the activity 2 The helper provides more than half the effort to complete the activity 1 Dependent. The helper does all the effort to complete an activity 7 Patient refused to complete or attempt activity 9 The patient did not perform the activity before the current illness or injury 88 Not attempted due to Medical conditions or safety concerns On/Off Footwear (QC): 5 Other Treatment Pt completed bilateral UE activity to increase strength and activity tolerance needed for functional task completion. Pt performed putty activity with bilateral hands to increase solar energy technician strength and coordination/manipulation skills. Pt able to remove small beads from medium(green) resistance putty. Pt performed 5 bilateral UE exercises x10 reps, 2 sets with dowel evangelina focusing on shoulder, elbow, and wrist movements. Rest breaks taken between all exercises. Pt completed graded clothespin activity with bilateral hands to promote reaching and increased solar energy technician/pinch strength. Pt able to complete task within reasonable amount of time. Pt takes rest breaks throughout treatment, but states he does not feel short of breath with Bi-pap in place. Pt sitting in chair with needs met and RN present after session. Education OT Patient Education: Modified ADL techniques Teaching Recipient: Patient Teaching Methods: Discussion Response to Teaching: Verbalize Understanding, Return Demonstration OT Short Term Goals Short Term Goals Upper Body Dressing(FIM): 6 Lower Body Dressing(FIM): 5 Transfers (B,C,W/C) (FIM): 6 Additional Short Term Goals: 1-Demonstrate ADL Tasks, 2-Verbalize Understanding, 3-ImproveStrength/Johanna 1=Demonstrate adherence to instructed precautions during ADL tasks. 2=Patient will verbalize/demonstrate understanding of assistive devices/modifications for ADL. 3=Patient will improve strength/tolerance for activity to enable patient to perform ADL's. OT Long-Term Goals Long-Term Goals Eating (FIM): 7 Eating (QC): 6 Groomin Oral Hygiene (QC): 7 Bathing(FIM): 6 Shower/Bathe Self (QC): 6 Upper Body Dressing(FIM): 6 Upper Body Dressing (QC): 6 Lower Body Dressing(FIM): 6 Lower Body Dressing (QC): 6 On/Off Footwear (QC): 6 Toileting(FIM): 6 Toileting Hygiene (QC): 6 Transfers (B,C,W/C) (FIM): 7 Toilet/Commode Transfer(FIM): 6 Toilet/Commode Transfer (QC): 6 Tub Transfer(FIM): 6 Shower Transfer(FIM): 6 Additional Goals: 1-Demonstrate ADL Tasks, 2-Verbalize Understanding, 3- ImproveStrength/Johanna 1=Demonstrate adherence to instructed precautions during ADL tasks. 2=Patient will verbalize/demonstrate understanding of assistive devices/modifications for ADL. 3=Patient will improve strength/tolerance for activity to enable patient to perform ADL's. OT Education/Plan Discharge Recommendations Plan/Recommendations: Continue POC Treatment Plan/Plan of Care Patient would benefit from OT for education, treatment and training to promote independence in ADL's, mobility, safety and/or upper extremity function for ADL's. Plan of Care: ADL Retraining, Caregiver Training, Functional Mobility, Group Ex ercise/Act as Ind, UE Funct Exercise/Act Treatment Duration: Nov 28, 2019 Frequency: At least 5 of 7 days/Wk (IRF) Estimated Hrs Per Day: 1.5 hours per day Agreement: Yes Rehab Potential: Fair Time/GCodes Start Time: 08:05 Stop Time: 08:50 Total Time Billed (hr/min): 45 Billed Treatment Time 1 visit, ADL(10minutes), EXx2(35minutes) KIRAN YOUNG OT Dec 14, 2018 10:25
--- NOTE | 2018-12-14 10:47 | Physical Therapy Daily Note ---
PT Daily Note-Current Subjective Patient in recliner pre tx, agrees to PT, no complaints of pain. Patient is on Bipap and will not be able to ambulate out of his room this morning but can perform seated exercises. Patient states he has had a lot of trouble breathing. Appearance Patient in recliner post tx with nurse call, phone, tray, all needs met. Mental Status Patient Orientation: Normal For Age Bipap Transfers Therapy Code Descriptions/Definitions Functional [place] Measure: 0=Not Assessed/NA 4=Minimal Assistance 1=Total Assistance 5=Supervision or Setup 2=Maximal Assistance 6=Modified [place] 3=Moderate Assistance 7=Complete [place] Therapy Quality Codes: 6 Independent with activity with or without an assistive device 5 Patient requires set up or clean up by helper. Patient completes activity by themselves 4 Supervision or touching assist (CGA). [place] provide cues , steadying miguel angel t 3 The helper provides less than half the effort to complete the activity 2 The helper provides more than half the effort to complete the activity 1 Dependent. The helper does all the effort to complete an activity 7 Patient refused to complete or attempt activity 9 The patient did not perform the activity before the current illness or injury 88 Not attempted due to Medical conditions or safety concerns Exercises Seated Therapy Exercises: Ankle pumps, Hip flexion, Hip abd/add (adduction with pillow) Seated Reps: 20 (2 sets) LAQ alternating for 5 min (2 sets), chair pushups and sit to stands x10 (2 sets) Treatments LE exercise Assessment Current Status: Poor Progress patient needed frequent rest breaks due to SOB and takes significant time to recover PT Short Term Goals Short Term Goals Time Frame: Dec 20, 2018 Transfers (B,C,W/C) (FIM): 6 Gait (FIM): 5 Gait Distance Comment: 150' Gait Level of Assist: 5 Gait Assistive Device: FWW PT Intermediate Goals Intermediate Goals PT Intermediate Goals Time Frame: Jan 03, 2019 Transfers (B,C,W/C) (FIM): 6 Sit to Lying (QC): 6 Lying-Sitting on Side/Bed(QC): 6 Sit to Stand (QC): 6 Rollin Roll Left to Right (QC): 6 Chair/Cvq-nb-Brnbm Xfer(QC): 6 Car Transfer (QC): 6 Gait (FIM): 6 Distance: 200' Walk 10 feet (QC): 6 Walk 10ft-Uneven Surface(QC): 6 Walk 50ft with 2 Turns (QC): 6 Walk 150 ft (QC): 6 Gait Level of Assist: 6 Gait Assistive Device: FWW Stairs (FIM): 2 # of Steps: 4 1 Step (curb) (QC): 4 4 Steps (QC): 4 Stairs Level Of Assist: 5 PT Plan Problem List Problem List: Activity Tolerance, Functional Strength, Safety, Balance, Gait, Transfer, Bed Mobility, ROM Treatment/Plan Treatment Plan: Continue Plan of Care Treatment Plan: Bed Mobility, Education, Functional Activity Johanna, Functional Strength, Group Therapy, Gait, Safety, Therapeutic Exercise, Transfers Treatment Duration: Jan 03, 2019 Frequency: At least 5 of 7 days/Wk (IRF) Estimated Hrs Per Day: 1.5 hours per day Patient and/or Family Agrees t: Yes Safety Risks/Education Patient Education: Correct Positioning, Safety Issues Teaching Recipient: Patient Teaching Methods: Demonstration, Discussion Response to Teaching: Reinforcement Needed Time/GCodes Time In: 1000 Time Out: 1100 Total Billed Treatment Time: 60 Total Billed Treatment 1 visit EX 60' MARINO VEGA PT Dec 14, 2018 10:47
[2018-12-14 11:10] VITALS: BP 154/76
--- NOTE | 2018-12-14 11:59 | Occupational Ther Daily Note ---
OT Current Status-Daily Note Subjective Pt agreeable to therapy. No c/o pain. Pt on Bi-pap, states he is feeling okay. Mental Status/Objective Therapy Code Descriptions/Definitions Functional [place] Measure: 0=Not Assessed/NA 4=Minimal Assistance 1=Total Assistance 5=Supervision or Setup 2=Maximal Assistance 6=Modified [place] 3=Moderate Assistance 7=Complete [place] ADL-Treatment Therapy Code Descriptions/Definitions Functional [place] Measure: 0=Not Assessed/NA 4=Minimal Assistance 1=Total Assistance 5=Supervision or Setup 2=Maximal Assistance 6=Modified [place] 3=Moderate Assistance 7=Complete [place] Therapy Quality Codes: 6 Independent with activity with or without an assistive device 5 Patient requires set up or clean up by helper. Patient completes activity by themselves 4 Supervision or touching assist (CGA). [place] provide cues , steadying assist 3 The helper provides less than half the effort to complete the activity 2 The helper provides more than half the effort to complete the activity 1 Dependent. The helper does all the effort to complete an activity 7 Patient refused to complete or attempt activity 9 The patient did not perform the activity before the current illness or injury 88 Not attempted due to Medical conditions or safety concerns Other Treatment Pt performed sit to stand with supervision. Pt completed pond bag toss with bilateral UE while standing to increase balance, activity tolerance, and UE activity. Pt able to perform task with good balance and one seated rest break. Pt denies feeling short of breath and O2 sats are >95%. Education provided regarding energy conservation and functional task completion. Pt practiced picking items up off floor with hemodialysis charge nurse to increase safety and conserve energy. Pt able to complete task with good balance. Pt sitting in chair with needs met after session. Education OT Patient Education: Energy conservation Teaching Recipient: Patient Teaching Methods: Demonstration, Discussion Response to Teaching: Verbalize Understanding OT Short Term Goals Short Term Goals Upper Body Dressing(FIM): 6 Lower Body Dressing(FIM): 5 Transfers (B,C,W/C) (FIM): 6 Additional Short Term Goals: 1-Demonstrate ADL Tasks, 2-Verbalize Understanding, 3-ImproveStrength/Johanna 1=Demonstrate adherence to instructed precautions during ADL tasks. 2=Patient will verbalize/demonstrate understanding of assistive devices/modifications for ADL. 3=Patient will improve strength/tolerance for activity to enable patient to perform ADL's. OT [facility] Goals Supervisor [employer] Goals Eating (FIM): 7 Eating (QC): 6 Groomin Oral Hygiene (QC): 7 Bathing(FIM): 6 Shower/Bathe Self (QC): 6 Upper Body Dressing(FIM): 6 Upper Body Dressing (QC): 6 Lower Body Dressing(FIM): 6 Lower Body Dressing (QC): 6 On/Off Footwear (QC): 6 Toileting(FIM): 6 Toileting Hygiene (QC): 6 Transfers (B,C,W/C) (FIM): 7 Toilet/Commode Transfer(FIM): 6 Toilet/Commode Transfer (QC): 6 Tub Transfer(FIM): 6 Shower Transfer(FIM): 6 Additional Goals: 1-Demonstrate ADL Tasks, 2-Verbalize Understanding, 3- ImproveStrength/Johanna 1=Demonstrate adherence to instructed precautions during ADL tasks. 2=Patient will verbalize/demonstrate understanding of assistive devices/modifications for ADL. 3=Patient will improve strength/tolerance for activity to enable patient to perform ADL's. OT Education/Plan Discharge Recommendations Plan/Recommendations: Continue POC Treatment Plan/Plan of Care Patient would benefit from OT for education, treatment and training to promote independence in ADL's, mobility, safety and/or upper extremity function for ADL's. Plan of Care: ADL Retraining, Caregiver Training, Functional Mobility, Group Exercise/Act as Ind, UE Funct Exercise/Act Treatment Duration: Nov 28, 2019 Frequency: At least 5 of 7 days/Wk (IRF) Estimated Hrs Per Day: 1.5 hours per day Agreement: Yes Rehab Potential: Fair Time/GCodes Start Time: 09:45 Stop Time: 10:00 Total Time Billed (hr/min): 15 Billed Treatment Time 1 visit, FA(15minutes) KIRAN YOUNG OT Dec 14, 2018 11:59
--- NOTE | 2018-12-14 12:19 | NUR ---
Met with patient to complete initial assessment. Patient admitted to ARU with PNA/Sepsis. Prior to hospitalization the patient was living with his spouse in [place], [place]. He was reportedly independent with ADLs and functionally mobile without an AD. Patient states he has a bath chair and grab bars. Patient states he has not utilized home health care services in the past but his has. Patient is agreeable to home health services, at dismissal, if recommended. Patient identifies his PCP as Dr. Degroot. Patient confirmed his insurance provider is [facility], with no supplemental coverage. He states his preferred pharmacy is [facility] [employer]. Patient states he has become accustomed to the CPAP and anticipates he will return home on oxygen. Reassured patient that oxygen supplies/services will be arranged prior to dismissal, if needed. The purpose of Weekly Team Conference was discussed, and patient displayed understanding with no concerns. Will continue to follow for discharge planning.
--- NOTE | 2018-12-14 12:31 | Progress Note ---
MARIELLE VARGAS MED STUDENT 12/14/18 1231: Progress Note Barriers to return home/discharge: * Requires BiPap at night, O2 during day. Was using CPAP when visited today. Reports working with Dr. Contreras on getting portable O2 and CPap for return home. * Still weak, some CADENA, but doing well in PT/OT. Reports that the only thing he struggles with his cleaning his feet and drying them with showering. Reports he is able to do other ADLs like dressing, and has a place to sit at home so he can do things like cook without getting too short of breath. Lives at home with his . * HTN difficult to control, still 150+ systolic on both readings today. * Last had palpitations two days ago due to new onset afib, reports no recurrence. * Lymphedema monitored by Dr. Miner * PT/OT recommends continued therapy for ADL training and increasing functional strength and mobility SANDRA BUI DO 12/14/18 1954: Supervisory-Addendum Brief Verification & Attestation Participated in pt care: history, MDM, physical Personally performed: exam, history, MDM, supervision of care Care discussed with: Medical Student Procedures: n/a Results interpretation: Verified all documentation Verification and Attestation of Medical Student E/M Service A medical student performed and documented this service in my presence. I reviewed and verified all information documented by the medical student and made modifications to such information, when appropriate. I personally performed the physical exam and medical decision making. Sandra Bui, Dec 14, 2018,19:54 MARIELLE VARGAS MED STUDENT Dec 14, 2018 12:31 SANDRA BUI DO Dec 14, 2018 19:54
--- NOTE | 2018-12-14 13:40 | NUR ---
RD ASSESSMENT PMHx: T2DM, HTN, COPD, afib, Neuropathy PT INTERACTION: Pt was awake and pleasant during nutrition assessment. Pt states current appetite is pretty good. Pt states no issues with n/v/d/c at this time. Note last BM recorded on 12/13. When discussing current DM management, pt states glucose levels range between 185-289. Pt states recent wt gain of 30# x6mon. Note unable to determine recent wt hx, per chart review. ABNORMAL NUTRITION-RELATED LAB VALUES: BUN 39 (H); cr 1.63 (H); glu 198 (H); Hgb 9.7 (L); Hct 30 (L) Est. kcal needs: 7894-7895 kcal (15-18 kcal/kg) Est. Pro needs: 120-150 g Pro (0.8-1.0 g Pro/kg) PES STATEMENT: Food- and nutrition-related knowledge deficit related to lack of prior nutrition-related education as evidenced by Pt interview | Pt: "glucose levels between 185-289" INTERVENTION: Continue with current diet order of CHO 60g/m 3 snack. Will follow-up prior to discharge with DM education on simple CHO counting and handouts. MONITOR/EVALUATE: Weight Status PO Intake Hydration Status Lab Values Carmel Pizarro, MS, RD [phone]
--- NOTE | 2018-12-14 13:57 | Physical Therapy Daily Note ---
PT Daily Note-Current Subjective Patient in recliner pre tx, agrees to PT, has no complaints of pain, patient states he just had a breathing treatment and feels a lot better. Appearance Patient in recliner post tx with nurse call, phone, tray, all needs met. Mental Status Patient Orientation: Normal For Age Attachments: Oxygen Transfers Therapy Code Descriptions/Definitions Functional [place] Measure: 0=Not Assessed/NA 4=Minimal Assistance 1=Total Assistance 5=Supervision or Setup 2=Maximal Assistance 6=Modified [place] 3=Moderate Assistance 7=Complete [place] Therapy Quality Codes: 6 Independent with activity with or without an assistive device 5 Patient requires set up or clean up by helper. Patient completes activity by themselves 4 Supervision or touching assist (CGA). [place] provide cues , steadying assist 3 The helper provides less than half the effort to complete the activity 2 The helper provides more than half the effort to complete the activity 1 Dependent. The helper does all the effort to complete an activity 7 Patient refused to complete or attempt activity 9 The patient did not perform the activity before the current illness or injury 88 Not attempted due to Medical conditions or safety concerns Sit to Stand (QC): 4 Chair/Rue-sf-Vrwaw Xfer(QC): 4 SBA with sit to stand and transfers Gait Training Distance: 150'x2 Walk 10 feet (QC): 4 Walk 50 ft with 2 Turns(QC): 4 Walk 150 ft (QC): 4 Gait Persons Needed: 1 Gait Assistive Device: FWW Patient ambulated 150'x2 with SBA. He ambulates slow but steady. Patient needed a significant rest break between ambulating. Treatments transfers, ambulation Assessment Current Status: Fair Progress improved distance of ambulation but patient needed a significant rest break to recover after ambulating PT Short Term Goals Short Term Goals Time Frame: Dec 20, 2018 Transfers (B,C,W/C) (FIM): 6 Gait (FIM): 5 Gait Distance Comment: 150' Gait Level of Assist: 5 Gait Assistive Device: FWW PT Site Head Goals Site Head Goals PT Usp Goals Time Frame: Jan 03, 2019 Transfers (B,C,W/C) (FIM): 6 Sit to Lying (QC): 6 Lying-Sitting on Side/Bed(QC): 6 Sit to Stand (QC): 6 Rollin Roll Left to Right (QC): 6 Chair/Stb-wm-[place] Xfer(QC): 6 Car Transfer (QC): 6 Gait (FIM): 6 Distance: 200' Walk 10 feet (QC): 6 Walk 10ft-Uneven Surface(QC): 6 Walk 50ft with 2 Turns (QC): 6 Walk 150 ft (QC): 6 Gait Level of Assist: 6 Gait Assistive Device: FWW Stairs (FIM): 2 # of Steps: 4 1 Step (curb) (QC): 4 4 Steps (QC): 4 Stairs Level Of Assist: 5 PT Plan Problem List Problem List: Activity Tolerance, Functional Strength, Safety, Balance, Gait, Transfer, Bed Mobility, ROM Treatment/Plan Treatment Plan: Continue Plan of Care Treatment Plan: Bed Mobility, Education, Functional Activity Johanna, Functional Strength, Group Therapy, Gait, Safety, Therapeutic Exercise, Transfers Treatment Duration: Jan 03, 2019 Frequency: At least 5 of 7 days/Wk (IRF) Estimated Hrs Per Day: 1.5 hours per day Patient and/or Family Agrees t: Yes Safety Risks/Education Patient Education: Gait Training, Transfer Techniques, Correct Positioning, Safety Issues Teaching Recipient: Patient Teaching Methods: Demonstration, Discussion Response to Teaching: Reinforcement Needed Time/GCodes Time In: 1330 Time Out: 1400 Total Billed Treatment Time: 30 Total Billed Treatment 1 visit GT 30' MARINO VEGA PT Dec 14, 2018 13:57
[2018-12-14] MEDS: CATHETER FLUSH 10 ML SYR IV PRN (15:18)
--- NOTE | 2018-12-14 15:32 | Occupational Ther Daily Note ---
OT Current Status-Daily Note Subjective Pt sitting in chair with nasal cannula in place, states he got a breathing treatment and feels much better. No c/o pain. Mental Status/Objective Therapy Code Descriptions/Definitions Functional [place] Measure: 0=Not Assessed/NA 4=Minimal Assistance 1=Total Assistance 5=Supervision or Setup 2=Maximal Assistance 6=Modified [place] 3=Moderate Assistance 7=Complete [place] Attachments: Oxygen (4L) ADL-Treatment Pt requesting shower this afternoon. Sit to stand with supervision. Gait to restroom with FWW. Pt sat on chair and doffed clothing with SBA. Transfer to walk in shower with supervision. Pt completed bathing with SBA using long handled sponge to wash lower legs and feet. Don pullover shirt with set up. Pt donned underwear with min assist to thread left LE. Donned shorts with SBA. Stood with supervision for balance during standing for pant hike. Don bilateral socks with set up using sock aid. Pt combed hair with set up. Pt declined to complete oral care at this time. Pt transferred back to recliner chair with needs met and spouse present after session. O2 sats were monitored during session. Sats decreased briefly to 88% after ambulating to restroom, but were >92% throughout remainder of session when spot checked. Discussed with RN. Therapy Code Descriptions/Definitions Functional [place] Measure: 0=Not Assessed/NA 4=Minimal Assistance 1=Total Assistance 5=Supervision or Setup 2=Maximal Assistance 6=Modified [place] 3=Moderate Assistance 7=Complete [place] Therapy Quality Codes: 6 Independent with activity with or without an assistive device 5 Patient requires set up or clean up by helper. Patient completes activity by themselves 4 Supervision or touching assist (CGA). [place] provide cues , steadying assist 3 The helper provides less than half the effort to complete the activity 2 The helper provides more than half the effort to complete the activity 1 Dependent. The helper does all the effort to complete an activity 7 Patient refused to complete or attempt activity 9 The patient did not perform the activity before the current illness or injury 88 Not attempted due to Medical conditions or safety concerns Grooming (FIM): 5 Oral Hygiene (QC): 7 Bathing (FIM): 5 Shower/Bathe Self (QC): 4 Upper Body (FIM): 5 Upper Body Dressing (QC): 5 Lower Body Dressing (FIM): 4 Lower Body Dressing (QC): 3 On/Off Footwear (QC): 5 (sock aid) Toilet Transfer (QC): 4 Shower Transfer(FIM): 5 OT Short Term Goals Short Term Goals Upper Body Dressing(FIM): 6 Lower Body Dressing(FIM): 5 Transfers (B,C,W/C) (FIM): 6 Additional Short Term Goals: 1-Demonstrate ADL Tasks, 2-Verbalize Understanding, 3-ImproveStrength/Johanna 1=Demonstrate adherence to instructed precautions during ADL tasks. 2=Patient will verbalize/demonstrate understanding of assistive devices/modifications for ADL. 3=Patient will improve strength/tolerance for activity to enable patient to perform ADL's. OT Skilled Nursing Goals Skilled Nursing Goals Eating (FIM): 7 Eating (QC): 6 Groomin Oral Hygiene (QC): 7 Bathing(FIM): 6 Shower/Bathe Self (QC): 6 Upper Body Dressing(FIM): 6 Upper Body Dressing (QC): 6 Lower Body Dressing(FIM): 6 Lower Body Dressing (QC): 6 On/Off Footwear (QC): 6 Toileting(FIM): 6 Toileting Hygiene (QC): 6 Transfers (B,C,W/C) (FIM): 7 Toilet/Commode Transfer(FIM): 6 Toilet/Commode Transfer (QC): 6 Tub Transfer(FIM): 6 Shower Transfer(FIM): 6 Additional Goals: 1-Demonstrate ADL Tasks, 2-Verbalize Understanding, 3- ImproveStrength/Johanna 1=Demonstrate adherence to instructed precautions during ADL tasks. 2=Patient will verbalize/demonstrate understanding of assistive devices/modifications for ADL. 3=Patient will improve strength/tolerance for activity to enable patient to perform ADL's. OT Education/Plan Discharge Recommendations Plan/Recommendations: Continue POC Treatment Plan/Plan of Care Patient would benefit from OT for education, treatment and training to promote independence in ADL's, mobility, safety and/or upper extremity function for ADL's. Plan of Care: ADL Retraining, Caregiver Training, Functional Mobility, Group Exercise/Act as Ind, UE Funct Exercise/Act Treatment Duration: Nov 28, 2019 Frequency: At least 5 of 7 days/Wk (IRF) Estimated Hrs Per Day: 1.5 hours per day Agreement: Yes Rehab Potential: Fair Time/GCodes Start Time: 14:30 Stop Time: 15:05 Total Time Billed (hr/min): 35 Billed Treatment Time 1 visit, ADLx2(35minutes) KIRAN YOUNG OT Dec 14, 2018 15:32
[2018-12-14 16:56] VITALS: BP 185/86
[2018-12-14 18:27] VITALS: BP 174/80
--- NOTE | 2018-12-14 18:28 | NUR ---
Rec'd order from Dr. Gutiérrez to d/c telemetry.
--- NOTE | 2018-12-14 18:30 | NUR ---
Pt states now that he doesn't want the flu shot, that he only wants the pneumonia shot.
[2018-12-14] MEDS: SIMvastatin 10 MG (ZOCOR) TAB PO SCH (20:56)
[2018-12-15] MEDS: RT-ALBUTEROL/IPRATROPIUM 3 ML (DUONEB) VIAL INH SCH ×4 (02:38→20:50)
[2018-12-15 05:05] VITALS: BP 146/70
[2018-12-15] MEDS: ETODOLAC 300 MG (LODINE) CAP PO SCH ×2 (06:02→17:21)
[2018-12-15] MEDS: PIPERACILLIN/TAZOBACTAM (BULK) 4.5 GM in NS (IVPB) 100 ML IV SCH ×3 (06:02→22:33)
[2018-12-15] MEDS: MULTIVIT W/MINERALS TAB (THERAGRAN M) PO SCH (06:02)
[2018-12-15] MEDS: inSUlin ASPART (NovoLOG) 1 UNIT/0.01 ML (CHARGE PER UNIT) SQ SCH ×4 (06:47→21:15)
--- NOTE | 2018-12-15 08:22 | Cardiology Progress Note ---
Subjective Date Seen by Provider: Dec 15, 2018 Time Seen by Provider: 08:21 Subjective/Events-last exam Patient is sitting up in chair, states dyspnea continues to improve. Denies any chest pain, dizziness or lightheadedness. Review of Systems General: No Chills, No Night Sweats, No Fatigue, No Malaise, No Appetite, No Other HEENT: No Head Aches, No Visual Changes, No Eye Pain, No Ear Pain, No Dysphasia, No Sinus Congestion, No Post Nasal Drip, No Sore Throat, No Other Pulmonary: No Dyspnea, No Cough, No Pleuritic Chest Pain, No Other Cardiovascular: No: Chest Pain, Palpitations, Orthopnea, Paroxysmal Noc. Dyspnea, Edema, Lt Headedness, Other Objective-Cardiology Exam Last Set of Vital Signs Vital Signs 12/13/18 12/15/18 12/15/18 21:00 05:05 06:30 Temp 36.4 Pulse 57 Resp 20 B/P (MAP) 146/70 (95) Pulse Ox 95 O2 Delivery Nasal Cannula O2 Flow Rate 4.00 FiO2 35 Capillary Refill : I&O Intake and Output 12/15/18 00:00 Intake Total 2550 ml Output Total 2750 ml Balance -200 ml Intake Oral 2450 ml IV Total 100 ml Output Urine Total 2750 ml # Bowel Movements 1 General: Alert, Oriented X3, Cooperative HEENT: Atraumatic, PERRLA Neck: Supple, No JVD, No Thyromegaly Lungs: Clear to Auscultation, Normal Air Movement Heart: Regular Rate, Normal S1, Normal S2, No Murmurs Abdomen: Normal Bowel Sounds, Soft, No Tenderness, No Hepatosplenomegaly, No Masses Extremities: No Clubbing, No Cyanosis, No Edema, Normal Pulses, No Tenderness/Swelling Skin: No Rashes, No Breakdown, No Significant Lesion Neuro: Normal Gait, Normal Speech, Strength at 5/5 X4 Ext, Normal Tone, Sensation Intact Psych/Mental Status: Mental Status NL, Mood NL Results Lab Laboratory Tests 12/15/18 08:53 A/P-Cardiology Admission Diagnosis Acute exacerbation of COPD Acute respiratory failure Hypertension Acute atrial fibrillation Assessment/Plan COPD, acute exacerbation, improving, managed by primary care team Hypertension, difficult to control, Cardizem CD increased to 240mg yesterday, better controlled this morning, continue to monitor. Pneumonia, improving, managed by primary care team Cellulitis, receiving antibiotics. Acute on chronic renal failure, continue to monitor renal function New-onset atrial fibrillation, back to sinus rhythm, change Cardizem to long- acting and monitor tolerance and response Morbid obesity, obesity hypoventilation syndrome and acute respiratory failure. Managed by Dr. Contreras Peripheral edema, chronic, echocardiogram showed normal left ventricular size and function with ejection fraction 55-60 percent, left atrial dilatation measuring 6.1 cm, mild mitral regurgitation, pulmonary hypertension with PA pressure 40-50 mmHg. Continue to monitor Coronary artery disease, history of cardiac catheterization done in 2014 showing coronary ectasia with slow flow, no significant obstructive disease. C onservative management Hyperlipidemia, monitor lipids Diabetes mellitus, followed and managed by primary care physician Clinical Quality Measures DVT/VTE Risk/Contraindication: Risk Factor Score Per Nursin RFS Level Per Nursing on Admit: 4+=Very High Supervisory-Addendum Brief Supervisory Addendum Participated in pt care: history, MDM, physical Personally performed: exam, history, MDM Care discussed with: BENNIE Notes: Patient was seen and evaluated with Cyndie, he was feeling better Blood pressure is better controlled Breathing is better Continue on current medication continue to monitor CYNDIE SHELDON Dec 15, 2018 08:22 AMI SANTACRUZ MD Dec 15, 2018 10:49
--- NOTE | 2018-12-15 08:34 | PM&R Progress Note ---
Subjective HPI/CC On Admission Date Seen by Provider: Dec 15, 2018 Time Seen by Provider: 07:00 CC: Respiratory insufficiency with weakness 12/10/18 admit CC/HPI: Chief complaint: Respiratory insufficiency with hypercapnia HPI: This is a 63yoWM who presented with respiratory insufficiency and hypercapnia due altered mental status requiring BiPAP while in inpatient rehab but needed close monitoring from cardiology and pulmonology standpoint after he was moved down to rehab yesterday. He has never had a sleep study and doesn't wear oxygen at night so he definitely has obesity hypoventilation syndrome from ABG findings consistent with approval for vent mask at discharge and will aggressively treat him and go back to inpatient rehab when able. 12/13/18 DC summary from med-surg: Hospital course: Patient had a brief hospital course after he was moved from inpatient rehabilitation after 1 day due to respiratory insufficiency and hypercapnia. Patient was placed in the ICU maintained on BiPAP with close monitoring from cardiology and pulmonology. Dr. Miner continue to monitor lymphedema. Patient dramatically improved with the use of BiPAP and Vapotherm and then nasal cannula and did very well at night on the BiPAP. Overall he did well was able to go back to inpatient rehabilitation for final stabilization of his medical problems along with his breathing machinery in preparation of discharge. HPI: Patient is ready to admit to rehab today. Patient now sleeps with biPAP and wears O2 NC during the day. Eating and drinking well and BM+. Patient is very weak and dyspneic on exertion so we will need to work on breathing with activity and have biPAP and O2 in place for DC once he is ready. Subjective/Events-last exam Pt on O2 and was able to sleep for about 9.5 hrs Stayed off of CPAP this morning Overall feeling much better with the dyspnea on exertion No pain is reported Bowels are moving Eating and drinking well Dr. Contreras is appreciated in consultation as is Dr. Gutiérrez. Conferred with RN Reviewed therapy notes Checked meds and labs Review of Systems General: Fatigue Pulmonary: Dyspnea Objective Exam Vital Signs Vital Signs Date Time Temp Pulse Resp B/P (MAP) Pulse Ox O2 Delivery O2 Flow Rate FiO2 12/15/18 17:13 36.6 62 20 171/74 (106) 96 Nasal Cannula 4.00 12/13/18 21:00 35 Capillary Refill : General Appearance: No Apparent Distress, WD/WN, Chronically ill, Obese HEENT: PERRL/EOMI, Normal ENT Inspection, Pharynx Normal, Moist Mucous Membranes Neck: Full Range of Motion, Normal Inspection, Non Tender, Supple Respiratory: Chest Non Tender, Lungs Clear, No Accessory Muscle Use, No Respiratory Distress, Decreased Breath Sounds Cardiovascular: Regular Rate, Rhythm, No Gallop, No JVD, No Murmur Gastrointestinal: Normal Bowel Sounds, No Organomegaly, No Pulsatile Mass, Non Tender, Soft Back: Normal Inspection, No CVA Tenderness, No Vertebral Tenderness Extremity: Normal Capillary Refill, Normal Inspection, Normal Range of Motion, Non Tender, No Calf Tenderness, Pedal Edema Neurologic/Psychiatric: Alert, Oriented x3, No Motor/Sensory Deficits, Normal Mood/Affect, [employer]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 FIM Transfers Therapy Code Descriptions/Definitions Functional [place] Measure: 0=Not Assessed/NA 4=Minimal Assistance 1=Total Assistance 5=Supervision or Setup 2=Maximal Assistance 6=Modified [place] 3=Moderate Assistance 7=Complete [place] Therapy Quality Codes: 6 Independent with activity with or without an assistive device 5 Patient requires set up or clean up by helper. Patient completes activity by themselves 4 Supervision or touching assist (CGA). [place] provide cues , steadying ass ist 3 The helper provides less than half the effort to complete the activity 2 The helper provides more than half the effort to complete the activity 1 Dependent. The helper does all the effort to complete an activity 7 Patient refused to complete or attempt activity 9 The patient did not perform the activity before the current illness or injury 88 Not attempted due to Medical conditions or safety concerns Transfers (B, C, W/C) (FIM): 4 (Sit to stand CGA to SBA) Scootin Rollin Roll Left to Right (QC): 7 Supine to/from Sit: 0 Sit to/from Stand: 5 Sit to Lying (QC): 7 Sit to Stand (QC): 4 Chair/Kmj-wd-Sblyr Xfer(QC): 4 Car Transfer (QC): 4 Gait Training Does the Patient Walk?: Yes Gait (FIM): 5 (household exception) Distance: 150'x2 Walk 10 feet (QC): 4 Walk 50 ft with 2 Turns(QC): 4 Walk 150 ft (QC): 4 Walking 10ft/uneven surface-QC: 4 Gait Level of Assist: 5 Gait Persons Needed: 1 Gait Assistive Device: FWW Wheelchair Training Does the Pt Use a Wheelchair?: No Stair Training Stairs (FIM): 1 #of Steps: 1 1 Step (curb) (QC): 4 Level of Assist: 5 Mental Status/Objective Comprehension: 7 Expression: 7 Social Interaction: 7 Problem Solvin Memory: 7 ADL-Treatment Feedin Eating (QC): 6 Groomin Oral Hygiene (QC): 7 Bathin Shower/Bathe Self (QC): 4 Upper Extremity Dressin Upper Body Dressing (QC): 5 Lower Extremity Dressin Lower Body Dressing (QC): 3 On/Off Footwear (QC): 5 (sock aid) Toiletin (Pt completes urination in urinal at recliner) Toilet Transfer (QC): 4 Shower: 5 Assessment/Plan Assessment and Plan Assess & Plan/Chief Complaint Assessment: OHS now doing very well with biPAP and NC O2 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 CRI HTN New onset AF DM Lymphedema Plan: Wrap legs Monitor cellulitis Appreciate Cardiology, Pulmonology, Wound care Lymphedema treatment BiPAP, O2 DC in future once DME set up and patient feels confident (1) Myopathy Status: Acute (2) Respiratory insufficiency (3) Dehydration Status: Acute (4) Hyperkalemia Status: Acute (5) Acute renal failure Status: Acute (6) Back pain Status: Acute (7) Diabetes Status: Chronic (8) Hypercapnia Status: Acute (9) Hypoxia Status: Acute (10) Abdominal pain Status: Acute (11) Chest pain Status: Acute (12) Atrial fibrillation with rapid ventricular response Status: Acute (13) Cellulitis of left lower extremity Status: Acute (14) Cellulitis of left lower extremity Status: Chronic (15) Diabetes mellitus with hyperglycemia Status: Chronic (16) Lymphedema (17) Obesity hypoventilation syndrome (18) Chronic renal failure Status: Chronic YARIEL BUI DO Dec 15, 2018 08:34
[2018-12-15] MEDS: APIXABAN 5 MG (ELIQUIS) TABLET PO SCH ×2 (08:56→21:15)
[2018-12-15] MEDS: DILTIAZEM 240 MG (CARDIZEM CD) CAP PO SCH (08:56)
[2018-12-15] MEDS: meTOproloL SUCCINATE 50 MG (TOPROL XL) TAB PO SCH (08:56)
[2018-12-15] MEDS: OMEGA 3 (FISH OIL) 1000 MG CAP PO SCH ×2 (08:56→21:15)
[2018-12-15] MEDS: ASPIRIN 81 MG CHEW (CHILDREN'S ASA) PO SCH (08:56)
[2018-12-15] MEDS: AMIODARONE 200 MG (CORDARONE) TAB PO SCH ×2 (08:57→21:15)
[2018-12-15] MEDS: LOSARTAN 100 MG (COZAAR) TABLET PO SCH (08:57)
[2018-12-15] MEDS: MICONAZOLE 2% POWDER (DESENEX AF) 90 GM TOP SCH (08:58)
[2018-12-15 09:23] LABS: CREATININE SERUM 1.59 MG/DL (0.60-1.30); POTASSIUM 4.5 MMOL/L (3.6-5.0)
--- NOTE | 2018-12-15 09:30 | Occupational Ther Daily Note ---
OT Current Status-Daily Note Subjective Pt sitting in chair, states he is feeling better today. Agrees to therapy. No c/o pain. Mental Status/Objective Therapy Code Descriptions/Definitions Functional [place] Measure: 0=Not Assessed/NA 4=Minimal Assistance 1=Total Assistance 5=Supervision or Setup 2=Maximal Assistance 6=Modified [place] 3=Moderate Assistance 7=Complete [place] Attachments: Oxygen (4L) ADL-Treatment Pt sit to stand with modified independence. Gait to restroom with FWW. Pt able to manage O2 tubing, but requires assist for IV push. Pt stood at sink to complete grooming tasks. Pt brushed teeth, combed hair, and washed face with modified independence. Pt returned to chair with FWW. After ambulation and standing at sink O2 Sats decreased to 87%, but increased to 93% with rest and cues for breathing. Discussed energy conservation during ADLs and possibly sitting while completing grooming tasks. Pt states understanding of education, but would like to continue completing grooming while standing if possible. Therapy Code Descriptions/Definitions Functional [place] Measure: 0=Not Assessed/NA 4=Minimal Assistance 1=Total Assistance 5=Supervision or Setup 2=Maximal Assistance 6=Modified [place] 3=Moderate Assistance 7=Complete [place] Therapy Quality Codes: 6 Independent with activity with or without an assistive device 5 Patient requires set up or clean up by helper. Patient completes activity by themselves 4 Supervision or touching assist (CGA). [place] provide cues , steadying assist 3 The helper provides less than half the effort to complete the activity 2 The helper provides more than half the effort to complete the activity 1 Dependent. The helper does all the effort to complete an activity 7 Patient refused to complete or attempt activity 9 The patient did not perform the activity before the current illness or injury 88 Not attempted due to Medical conditions or safety concerns Oral Hygiene (QC): 6 Other Treatment Pt completed bilateral UE exercises to increase strength and activity tolerance needed for functional tasks. Pt performed shoulder flexion, abduction, biceps curls, and triceps extension exercises x10 reps, 2 sets with medium resistance (red) theraband. Rest breaks between exercises. Occasional cues for correct exercise technique. Increased time for exercises. O2 sats 93-95% during seated exercise. Pt completed putty activity with bilateral UE while standing to increase activity tolerance and balance. Pt performed task with good balance. O2 sats >91% during task. Pt sitting in chair with needs met after session. Education OT Patient Education: Energy conservation Teaching Recipient: Patient Teaching Methods: Discussion Response to Teaching: Verbalize Understanding OT Short Term Goals Short Term Goals Upper Body Dressing(FIM): 6 Lower Body Dressing(FIM): 5 Transfers (B,C,W/C) (FIM): 6 Additional Short Term Goals: 1-Demonstrate ADL Tasks, 2-Verbalize Understanding, 3-ImproveStrength/Johanna 1=Demonstrate adherence to instructed precautions during ADL tasks. 2=Patient will verbalize/demonstrate understanding of assistive devices/modific ations for ADL. 3=Patient will improve strength/tolerance for activity to enable patient to perform ADL's. OT Halfway Goals Halfway Goals Eating (FIM): 7 Eating (QC): 6 Groomin Oral Hygiene (QC): 7 Bathing(FIM): 6 Shower/Bathe Self (QC): 6 Upper Body Dressing(FIM): 6 Upper Body Dressing (QC): 6 Lower Body Dressing(FIM): 6 Lower Body Dressing (QC): 6 On/Off Footwear (QC): 6 Toileting(FIM): 6 Toileting Hygiene (QC): 6 Transfers (B,C,W/C) (FIM): 7 Toilet/Commode Transfer(FIM): 6 Toilet/Commode Transfer (QC): 6 Tub Transfer(FIM): 6 Shower Transfer(FIM): 6 Additional Goals: 1-Demonstrate ADL Tasks, 2-Verbalize Understanding, 3- ImproveStrength/Johanna 1=Demonstrate adherence to instructed precautions during ADL tasks. 2=Patient will verbalize/demonstrate understanding of assistive devices/modifications for ADL. 3=Patient will improve strength/tolerance for activity to enable patient to perform ADL's. OT Education/Plan Discharge Recommendations Plan/Recommendations: Continue POC Treatment Plan/Plan of Care Patient would benefit from OT for education, treatment and training to promote independence in ADL's, mobility, safety and/or upper extremity function for ADL's. Plan of Care: ADL Retraining, Caregiver Training, Functional Mobility, Group Exercise/Act as Ind, UE Funct Exercise/Act Treatment Duration: Nov 28, 2019 Frequency: At least 5 of 7 days/Wk (IRF) Estimated Hrs Per Day: 1.5 hours per day Agreement: Yes Rehab Potential: Fair Time/GCodes Start Time: 08:00 Stop Time: 09:00 Total Time Billed (hr/min): 60 Billed Treatment Time 1 visit, ADL(15minutes), EXx2(35minutes), FA(10minutes) KIRAN YOUNG OT Dec 15, 2018 09:30
--- NOTE | 2018-12-15 10:10 | Progress Note ---
MARIELLE VARGAS MED STUDENT 12/15/18 1010: Subjective Date Seen by a Provider: Dec 15, 2018 Subjective/Events-last exam Since I last saw him, cardiology reports better HTN control, and that his dys pnea has improved. OT reports that he can go from sitting to standing with modified independence, and noted that his O2 sats fell to 87% after ambulation and standing at the sink, and increased to 93% with rest and breathing cues. They discussed energy conservation during ADLs with him, and possibly sitting during grooming tasks. He is being set up to have CPAP and home oxygen for discharge. When I spoke to him today he reiterated what I had read in the notes. He said he felt 85-90% ready to go home, and that what was holding him back was his breathing. He feels capable of doing all his daily tasks at home, he just needs to be aware of when he is fatigued and take rests. Objective Exam Last Set of Vital Signs Vital Signs Date Time Temp Pulse Resp B/P (MAP) Pulse Ox O2 Delivery O2 Flow Rate FiO2 12/15/18 06:30 95 Nasal Cannula 4.00 12/15/18 05:05 36.4 57 20 146/70 (95) 12/13/18 21:00 35 Capillary Refill : I&O Intake and Output 12/15/18 00:00 Intake Total 2550 ml Output Total 2750 ml Balance -200 ml Intake Oral 2450 ml IV Total 100 ml Output Urine Total 2750 ml # Bowel Movements 1 Results Lab Laboratory Tests 12/14/18 11:05: Glucometer 235H 12/14/18 16:54: Glucometer 177H 12/14/18 22:03: Glucometer 248H 12/15/18 06:30: Glucometer 189H 12/15/18 08:53: Sodium Level 142, Potassium Level 4.5, Chloride Level 105, Carbon Dioxide Level 29, Anion Gap 8, Blood Urea Nitrogen 26H, Creatinine 1.59H, Estimat Glomerular Filtration Rate 44, BUN/Creatinine Ratio 16, Glucose Level 279H, Calcium Level 9.0 Clinical Quality Measures DVT/VTE Risk/Contraindication: Risk Factor Score Per Nursin RFS Level Per Nursing on Admit: 4+=Very High SANDRA BUI DO 12/15/182037: Subjective Time Seen by a Provider: 09:00 Assessment/Plan Assessment/Plan Assess & Plan/Chief Complaint Hypoxia Supervisory-Addendum Brief Verification & Attestation Participated in pt care: history, MDM, physical Personally performed: exam, history, MDM, supervision of care Care discussed with: Medical Student Procedures: n/a Results interpretation: Verified all documentation Verification and Attestation of Medical Student E/M Service A medical student performed and documented this service in my presence. I reviewed and verified all information documented by the medical student and made modifications to such information, when appropriate. I personally performed the physical exam and medical decision making. Sandra Bui, Dec 15, 2018,20:37 MARIELLE VARGAS MED STUDENT Dec 15, 2018 10:10 SANDRA BUI DO Dec 15, 2018 20:38
--- NOTE | 2018-12-15 10:45 | Occupational Ther Daily Note ---
OT Current Status-Daily Note Subjective Pt agreeable to treatment, no pain. States he continues to feel he is breathing better today. Mental Status/Objective Therapy Code Descriptions/Definitions Functional [place] Measure: 0=Not Assessed/NA 4=Minimal Assistance 1=Total Assistance 5=Supervision or Setup 2=Maximal Assistance 6=Modified [place] 3=Moderate Assistance 7=Complete [place] Attachments: IV, Oxygen (4L) ADL-Treatment Therapy Code Descriptions/Definitions Functional [place] Measure: 0=Not Assessed/NA 4=Minimal Assistance 1=Total Assistance 5=Supervision or Setup 2=Maximal Assistance 6=Modified [place] 3=Moderate Assistance 7=Complete [place] Therapy Quality Codes: 6 Independent with activity with or without an assistive device 5 Patient requires set up or clean up by helper. Patient completes activity by themselves 4 Supervision or touching assist (CGA). [place] provide cues , steadying assist 3 The helper provides less than half the effort to complete the activity 2 The helper provides more than half the effort to complete the activity 1 Dependent. The helper does all the effort to complete an activity 7 Patient refused to complete or attempt activity 9 The patient did not perform the activity before the current illness or injury 88 Not attempted due to Medical conditions or safety concerns Other Treatment Pt completed fine motor task with nuts and bolts using bilateral UE with 1# weights in place to increase strength, coordination, and activity tolerance. Pt able to complete task with increased time and rest breaks as needed. Pt performed arm arc activity with bilateral UE while standing to increase activity tolerance and balance. Pt completed task without LOB. One seated rest break during standing activity, O2 sats remained >92% during task. Pt sitting in chair with needs met after session. OT Short Term Goals Short Term Goals Upper Body Dressing(FIM): 6 Lower Body Dressing(FIM): 5 Transfers (B,C,W/C) (FIM): 6 Additional Short Term Goals: 1-Demonstrate ADL Tasks, 2-Verbalize Understanding, 3-ImproveStrength/Johanna 1=Demonstrate adherence to instructed precautions during ADL tasks. 2=Patient will verbalize/demonstrate understanding of assistive devices/modifications for ADL. 3=Patient will improve strength/tolerance for activity to enable patient to perform ADL's. OT Longterm Goals Longterm Goals Eating (FIM): 7 Eating (QC): 6 Groomin Oral Hygiene (QC): 7 Bathing(FIM): 6 Shower/Bathe Self (QC): 6 Upper Body Dressing(FIM): 6 Upper Body Dressing (QC): 6 Lower Body Dressing(FIM): 6 Lower Body Dressing (QC): 6 On/Off Footwear (QC): 6 Toileting(FIM): 6 Toileting Hygiene (QC): 6 Transfers (B,C,W/C) (FIM): 7 Toilet/Commode Transfer(FIM): 6 Toilet/Commode Transfer (QC): 6 Tub Transfer(FIM): 6 Shower Transfer(FIM): 6 Additional Goals: 1-Demonstrate ADL Tasks, 2-Verbalize Understanding, 3- ImproveStrength/Johanna 1=Demonstrate adherence to instructed precautions during ADL tasks. 2=Patient will verbalize/demonstrate understanding of assistive devices/modifications for ADL. 3=Patient will improve strength/tolerance for activity to enable patient to perform ADL's. OT Education/Plan Discharge Recommendations Plan/Recommendations: Continue POC Treatment Plan/Plan of Care Patient would benefit from OT for education, treatment and training to promote independence in ADL's, mobility, safety and/or upper extremity function for ADL's. Plan of Care: ADL Retraining, Caregiver Training, Functional Mobility, Group Exercise/Act as Ind, UE Funct Exercise/Act Treatment Duration: Nov 28, 2019 Frequency: At least 5 of 7 days/Wk (IRF) Estimated Hrs Per Day: 1.5 hours per day Agreement: Yes Rehab Potential: Fair Time/GCodes Start Time: 09:30 Stop Time: 10:00 Total Time Billed (hr/min): 30 Billed Treatment Time 1 visit, EX(15minutes), FA(15minutes) KIRAN YOUNG OT Dec 15, 2018 10:45
--- NOTE | 2018-12-15 11:03 | Physical Therapy Daily Note ---
PT Daily Note-Current Subjective Pt. states he feels he is doing so much better and has no qualms about how he will manage at home. States firmly that he will not attempt to lay down here and doesnt at home . Pain Location: No Pain Reported Mental Status Patient Orientation: Normal For Age Attachments: Oxygen (4L) Transfers Therapy Quality Codes: 6 Independent with activity with or without an assistive device 5 Patient requires set up or clean up by helper. Patient completes activity by themselves 4 Supervision or touching assist (CGA). [place] provide cues , steadying assist 3 The helper provides less than half the effort to complete the activity 2 The helper provides more than half the effort to complete the activity 1 Dependent. The helper does all the effort to complete an activity 7 Patient refused to complete or attempt activity 9 The patient did not perform the activity before the current illness or injury 88 Not attempted due to Medical conditions or safety concerns Transfers (B, C, W/C): 6 Sit to Stand (QC): 6 Chair/Leb-tk-Zmisz Xfer(QC): 6 sit to stands only as pt. does not lay down anywhere ever ,as he cannot breathe and also has very dizzy response in sup Gait Training Does the Patient Walk?: Yes Gait: 5 Walk 10 feet (QC): 5 Walk 50 ft with 2 Turns(QC): 5 Walk 150 ft (QC): 5 Gait Persons Needed: 1 Gait Assistive Device: FWW needs assist for portable O2 only, no LOB, manages FWW well Exercises Seated Therapy Exercises: Ankle pumps, Sit to stand, Long arc quads, Hip flexion, Hip abd/add Seated Reps: 20 Standing: Hip Abduction, Heel/toe raises, Marching, Mini squats, Sit to Stand, Side steps Standing Reps: 15 Treatments needs breathing rest breaks between each exercise Assessment Current Status: Good Progress PT Short Term Goals Short Term Goals Time Frame: Dec 20, 2018 Gait Distance Comment: 150' Gait Assistive Device: FWW PT Upper Doubler Goals Intermediate Goals PT Intermediate Goals Time Frame: Jan 03, 2019 Sit to Lying (QC): 6 Lying-Sitting on Side/Bed(QC): 6 Sit to Stand (QC): 6 Roll Left to Right (QC): 6 Chair/Ntk-at-Zcqew Xfer(QC): 6 Car Transfer (QC): 6 Distance: 200' Walk 10 feet (QC): 6 Walk 10ft-Uneven Surface(QC): 6 Walk 50ft with 2 Turns (QC): 6 Walk 150 ft (QC): 6 Gait Level of Assist: 6 Gait Assistive Device: FWW # of Steps: 4 1 Step (curb) (QC): 4 4 Steps (QC): 4 Stairs Level Of Assist: 5 PT Plan Treatment/Plan Treatment Plan: Continue Plan of Care Treatment Plan: Bed Mobility, Education, Functional Activity Johanna, Functional Strength, Group Therapy, Gait, Safety, Therapeutic Exercise, Transfers Treatment Duration: Jan 03, 2019 Frequency: At least 5 of 7 days/Wk (IRF) Estimated Hrs Per Day: 1.5 hours per day Patient and/or Family Agrees t: Yes Safety Risks/Education Patient Education: Gait Training, Transfer Techniques, Correct Positioning, Disease Process, Safety Issues Teaching Recipient: Patient Teaching Methods: Demonstration, Discussion Response to Teaching: Verbalize Understanding, Return Demonstration, Reinforcement Needed Time/GCodes Time In: 1015 Time Out: 1115 Total Billed Treatment Time: 60 Total Billed Treatment 1,FA20m,GT25m,EX15m KIM MA HAND CUTTER Dec 15, 2018 11:02
--- NOTE | 2018-12-15 14:04 | Physical Therapy Daily Note ---
PT Daily Note-Current Subjective Pt. states he feels ready to go home and feels with extended tube O2 at home he will function great. Pain Location: No Pain Reported Appearance some SOB noted after gait 150-160 ft requiring sitting rest break Mental Status Patient Orientation: Person, Place, Time, Situation, Normal For Age Attachments: Oxygen (4L) Transfers Therapy Quality Codes: 6 Independent with activity with or without an assistive device 5 Patient requires set up or clean up by helper. Patient completes activity by themselves 4 Supervision or touching assist (CGA). [place] provide cues , steadying assist 3 The helper provides less than half the effort to complete the activity 2 The helper provides more than half the effort to complete the activity 1 Dependent. The helper does all the effort to complete an activity 7 Patient refused to complete or attempt activity 9 The patient did not perform the activity before the current illness or injury 88 Not attempted due to Medical conditions or safety concerns mod I for all sit to stand, pt. refuses sit to sup Gait Training Does the Patient Walk?: Yes Gait: 5 Gait Assistive Device: FWW short dist in room with extended tubing O2 with safe routine and good management Stair Training Stair Training: Handrails/: 2 handrails #of Steps: 4 4 Steps (QC): 5 Level of Assist: 5 safe management on steps, assist only for holding O2 tube Assessment Current Status: Good Progress PT Short Term Goals Short Term Goals Time Frame: Dec 20, 2018 Gait Distance Comment: 150' Gait Assistive Device: FWW PT [facility] Goals [facility] Goals PT [facility] Goals Time Frame: Jan 03, 2019 Sit to Lying (QC): 6 Lying-Sitting on Side/Bed(QC): 6 Sit to Stand (QC): 6 Roll Left to Right (QC): 6 Chair/Nbv-tg-Cflch Xfer(QC): 6 Car Transfer (QC): 6 Distance: 200' Walk 10 feet (QC): 6 Walk 10ft-Uneven Surface(QC): 6 Walk 50ft with 2 Turns (QC): 6 Walk 150 ft (QC): 6 Gait Level of Assist: 6 Gait Assistive Device: FWW # of Steps: 4 1 Step (curb) (QC): 4 4 Steps (QC): 4 Stairs Level Of Assist: 5 PT Plan Treatment/Plan Treatment Plan: Continue Plan of Care Treatment Plan: Bed Mobility, Education, Functional Activity Johanna, Functional Strength, Group Therapy, Gait, Safety, Therapeutic Exercise, Transfers Treatment Duration: Jan 03, 2019 Frequency: At least 5 of 7 days/Wk (IRF) Estimated Hrs Per Day: 1.5 hours per day Patient and/or Family Agrees t: Yes Safety Risks/Education Patient Education: Gait Training, Steps, Correct Positioning, Disease Process, Safety Issues Teaching Recipient: Patient Teaching Methods: Demonstration, Discussion Response to Teaching: Verbalize Understanding, Return Demonstration, Reinforcement Needed Time/GCodes Time In: 1330 Time Out: 1400 Total Billed Treatment Time: 30 Total Billed Treatment 1,FA15m,GT15m KIM MA ENTRY SPECIALIST Dec 15, 2018 14:04
[2018-12-15 17:13] VITALS: BP 171/74
--- NOTE | 2018-12-15 20:35 | Individualized Plan of Care ---
Individualized Plan of Care Rehab Nursing IPOC Order Admission Date Dec 13, 2018 at 10:20 Current Orders Orders Admission Order(Inpt,Obs,Sdc) (12/13/18 10:07) Vital Signs: Per Unit Policy ( 08,16,00 (12/13/18 10:07) Rand Maker-Inpt Rehab Con (12/13/18 10:07) Rehab Nursing Orders-Ipoc (12/13/18 10:07) Physical Therapy Rehab Orders (12/13/18 10:07) Occupational Therapy Rehab Ord (12/13/18 10:07) Speech Therapy Rehab Orders (12/13/18 10:07) Precautions (Aru) (12/13/18 10:07) Weekly Weight WEEK (12/13/18 10:07) Rehab-Intensity Of Therapy (12/13/18 10:07) Initiate Admission Nursing Pro .admission (12/13/18 10:07) Initiate Admission Nursing Pro .admission (12/13/18 10:07) Admission Arrival Bed Request (12/13/18 10:20) General/Regular (12/13/18 Lunch) Code/Resuscitation (12/13/18 13:00) Activity (12/13/18 13:00) Ambulate 08,12,20 (12/13/18 13:00) Dressing Order (Intervention) DAILY (12/13/18 13:00) Nursing Communication (Order) (12/13/18 13:00) Sequential Compression Device Q4H (12/13/18 13:00) Cho 60g/M 3snack (16-2000 Bob) (12/13/18 Dinner) Acetaminophen Tablet (Tylenol Tablet) (12/13/18 13:00) Albuterol/Ipra Inhalation Soln (Duoneb I (12/13/18 15:00) Amiodarone Tablet (Cordarone Tablet) (12/13/18 21:00) Apixaban Tablet (Eliquis Tablet) (12/13/18 21:00) Aspirin Chewable Tablet (Baby Aspirin Ch (12/14/18 09:00) Diltiazem Tablet (Cardizem Tablet) (12/13/18 18:00) Etodolac Capsule/Tablet ([place] Capsule/ (12/13/18 17:00) Miconazole 2% Powder (Desenex Af 2% Powd (12/14/18 09:00) [place] 3 Capsule (Fish Oil Capsule) (12/13/18 21:00) Piperacillin/Tazobactam (Bulk) (Zosyn In (12/13/18 15:00) Simvastatin Tablet (Zocor Tablet) (12/13/18 21:00) Sodium Chloride Flush (Catheter Flush Sy (12/13/18 13:15) Therapeutic Multivitamin Tab (Vitamins, (12/14/18 07:00) Insulin Aspart (Novolog) (Novolog (Charg (12/13/18 16:00) Insulin Determir (Per Unit) (Levemir (Pe (12/13/18 21:00) Metoprolol Succinate (Xl) Tab (Toprol Xl (12/14/18 09:00) Bipap (Bilevel) Set Up (12/13/18 13:00) Consult Cardiology (12/13/18 13:00) Consult Physician (12/13/18 13:00) Consult Wound Care Physician (12/13/18 13:00) Mat Initiate Protocol (12/13/18 13:00) Svn Small Volume Nebulizer (12/13/18 13:00) Svn Small Volume Nebulizer (12/13/18 13:00) Ambulate 08,12,20 (12/13/18 13:08) Dvt/Vte Risk - Notifiy Physici Q4H (12/13/18 13:08) Diltiazem Tablet (Cardizem Tablet) (12/13/18 13:30) Diltiazem Tablet (Cardizem Tablet) (12/13/18 13:36) Patient Visit (12/13/18 ) Pt Eval Moderate Complexity (12/13/18 ) Exercise Therap, Ea 15 Min (12/13/18 ) Gait Training, Ea 15 Min (12/13/18 ) Patient Visit (12/13/18 ) Functional Activities, Ea 15 (12/13/18 ) Ex Neuromuscular, Ea 15 Min (12/13/18 ) Patient Visit (12/13/18 ) Speech Sound Lang Comp (12/13/18 ) Losartan Tablet (Cozaar Tablet) (12/13/18 17:15) Losartan Tablet (Cozaar Tablet) (12/14/18 09:00) Losartan Tablet (Cozaar Tablet) (12/13/18 17:20) Influenza Quad (5+Yoa) 2018- (Afluria (12/13/18 20:00) Diltiazem Cd 24 Hr Capsule (Cardizem Cd (12/14/18 09:00) Patient Visit (12/14/18 ) Exercise Therap, Ea 15 Min (12/14/18 ) Patient Visit (12/14/18 ) Gait Training, Ea 15 Min (12/14/18 ) Basic Metabolic Panel (12/15/18 08:40) Patient Visit (12/15/18 ) Functional Activities, Ea 15 (12/15/18 ) Gait Training, Ea 15 Min (12/15/18 ) Exercise Therap, Ea 15 Min (12/15/18 ) Consult Pulmonology (12/15/18 19:53) Diabetes Education (12/15/18 19:53) Rehab Nursing Orders: Ongoing Assess. of Cognitive Status, Ongoing Assess. of Function Status, Bladder Management, Bladder Training, Disease Management & Educaiton, DVT Prophylaxis, Fluid/Electrolyte/Nutrition Mgmt, Medication Management & Education, Nutrition Management, Pain Management Intensity of Therapy to be met Patient to be seen: Min.3h per day/5 of 7d PT IPOC Problem List: Activity Tolerance, Functional Strength, Safety, Balance, Gait, Transfer, Bed Mobility, ROM Treatment Plan: Continue Plan of Care Bed Mobility, Education, Functional Activity Johanna, Functional Strength, Group Therapy, Gait, Safety, Therapeutic Exercise, Transfers Treatment Duration: Jan 03, 2019 Frequency: At least 5 of 7 days/Wk (IRF) Estimated Hrs Per Day: 1.5 hours per day OT IPOC Problems: Decreased Activ Tolerance, Impaired I ADL's, Impaired Self-Care Skills OT Treatment, Training and Edu: Yes Plan of Care: ADL Retraining, Caregiver Training, Functional Mobility, Group Exercise/Act as Ind, UE Funct Exercise/Act Treatment Duration: Nov 28, 2019 Frequency: At least 5 of 7 days/Wk (IRF) Estimated Hrs Per Day: 1.[address] IPOC Speech Therapy Treatment Plan: Discontinue ST Treatment Duration: Dec 13, 2018 Frequency: 1 time per week Estimated Hrs Per Day: .25 hour per day Rand Maker/Case Mgmt Rand Maker/Case Managemen: Discharge Planning Dietitian/Batter Mixer Dietitian/Batter Mixer to monitor nutritional status and make changes and/or recommendations as needed and work with speech pathology on dietary upgrades as the occur. Physician IPOC Medical Issues being managed closely and that require the 24 hour availability of a physician: Recent ICU stay x 2 for resp failure then AF will need close monitoring of cardiology and pulmonology issues Medical Issues: Bowel/Bladder Function, DVT Prophylaxis, Falls Precautions, Fluid/Electrolyte/Nutrition Balance, Pain Management Brief Synthesis of Preadmission Screen, Post-Admission Evaluation, and Therapy Evaluations: PT will help regain ambulatory ability along with respiratory stamina OT will help regain independent ADL's Medical Prognosis: Good Anticipated Length of Stay: 5-7 days YARIEL BUI DO Dec 15, 2018 20:35
[2018-12-15] MEDS: SIMvastatin 10 MG (ZOCOR) TAB PO SCH (21:15)
[2018-12-16] MEDS: RT-ALBUTEROL/IPRATROPIUM 3 ML (DUONEB) VIAL INH SCH ×4 (03:21→20:33)
[2018-12-16 05:18] VITALS: BP 154/74
[2018-12-16] MEDS: MULTIVIT W/MINERALS TAB (THERAGRAN M) PO SCH (05:53)
[2018-12-16] MEDS: ETODOLAC 300 MG (LODINE) CAP PO SCH ×2 (05:53→16:44)
[2018-12-16] MEDS: PIPERACILLIN/TAZOBACTAM (BULK) 4.5 GM in NS (IVPB) 100 ML IV SCH (05:54)
[2018-12-16] MEDS: inSUlin ASPART (NovoLOG) 1 UNIT/0.01 ML (CHARGE PER UNIT) SQ SCH ×4 (06:00→20:24)
--- NOTE | 2018-12-16 08:13 | NUR ---
patients o2 sat was at 96% on 4 L Hifl NC so RT decreased O2 to 2 L NC at this time
[2018-12-16 08:15] VITALS: BP 154/74
--- NOTE | 2018-12-16 08:17 | Cardiology Progress Note ---
Subjective Date Seen by Provider: Dec 16, 2018 Time Seen by Provider: 08:16 Subjective/Events-last exam Patient sitting up in chair, dyspnea improving. Denies any chest pain. Review of Systems General: No Chills, No Night Sweats, No Fatigue, No Malaise, No Appetite, No Other HEENT: No Head Aches, No Visual Changes, No Eye Pain, No Ear Pain, No Dysphasia, No Sinus Congestion, No Post Nasal Drip, No Sore Throat, No Other Pulmonary: Dyspnea, Cough; No Pleuritic Chest Pain, No Other Cardiovascular: No: Chest Pain, Palpitations, Orthopnea, Paroxysmal Noc. Dyspnea, Edema, Lt Headedness, Other Objective-Cardiology Exam Last Set of Vital Signs Vital Signs 12/16/18 12/16/18 12/16/18 05:18 08:15 09:00 Temp 36.6 Pulse 62 Resp 20 B/P (MAP) 154/74 (100) Pulse Ox 96 O2 Delivery High Flow N/C O2 Flow Rate 4.00 FiO2 36 Capillary Refill : I&O Intake and Output 12/16/18 00:00 Intake Total 1500 ml Output Total 1900 ml Balance -400 ml Intake Oral 1260 ml IV Total 240 ml Output Urine Total 1900 ml # Voids 1 # Bowel Movements 2 General: Alert, Oriented X3, Cooperative HEENT: Atraumatic, PERRLA Neck: Supple, No JVD, No Thyromegaly Lungs: Clear to Auscultation, Normal Air Movement Heart: Regular Rate, Normal S1, Normal S2, No Murmurs Abdomen: Normal Bowel Sounds, Soft, No Tenderness, No Hepatosplenomegaly, No Masses Extremities: No Clubbing, No Cyanosis, No Edema, Normal Pulses, No Tenderness/Swelling Skin: No Rashes, No Breakdown, No Significant Lesion Neuro: Normal Gait, Normal Speech, Strength at 5/5 X4 Ext, Normal Tone, Sensation Intact Psych/Mental Status: Mental Status NL, Mood NL Results Lab A/P-Cardiology Admission Diagnosis Acute exacerbation of COPD Acute respiratory failure Hypertension Acute atrial fibrillation Assessment/Plan COPD, acute exacerbation, improving, managed by primary care team Hypertension, difficult to control, Cardizem CD increased to 240mg yesterday, continue to monitor. Pneumonia, improving, managed by primary care team Cellulitis, receiving antibiotics. Acute on chronic renal failure, continue to monitor renal function New-onset atrial fibrillation, back to sinus rhythm, change Cardizem to long- acting and monitor tolerance and response Morbid obesity, obesity hypoventilation syndrome and acute respiratory failure. Managed by Dr. Contreras Peripheral edema, chronic, echocardiogram showed normal left ventricular size and function with ejection fraction 55-60 percent, left atrial dilatation measuring 6.1 cm, mild mitral regurgitation, pulmonary hypertension with PA pres sure 40-50 mmHg. Continue to monitor Coronary artery disease, history of cardiac catheterization done in 2014 showing coronary ectasia with slow flow, no significant obstructive disease. Conservative management Hyperlipidemia, maintained on simvastatin, I will change to Lipitor secondary to interaction with Amiodarone. Diabetes mellitus, followed and managed by primary care physician Clinical Quality Measures DVT/VTE Risk/Contraindication: Risk Factor Score Per Nursin RFS Level Per Nursing on Admit: 4+=Very High Supervisory-Addendum Brief Supervisory Addendum Participated in pt care: history, MDM, physical Personally performed: exam, history, MDM Care discussed with: BENNIE Notes: Patient is sitting in a chair, feeling better Breathing better Blood pressure is better controlled Continue on current medication and monitor blood pressure CYNDIE SHELDON Dec 16, 2018 8:17 am AMI SANTACRUZ MD Dec 16, 2018 4:14 pm
--- NOTE | 2018-12-16 08:52 | PM&R Progress Note ---
Subjective HPI/CC On Admission Date Seen by Provider: Dec 16, 2018 Time Seen by Provider: 08:30 CC: Respiratory insufficiency with weakness 12/10/18 admit CC/HPI: Chief complaint: Respiratory insufficiency with hypercapnia HPI: This is a 63yoWM who presented with respiratory insufficiency and hypercapnia due altered mental status requiring BiPAP while in inpatient rehab but needed close monitoring from cardiology and pulmonology standpoint after he was moved down to rehab yesterday. He has never had a sleep study and doesn't wear oxygen at night so he definitely has obesity hypoventilation syndrome from ABG findings consistent with approval for vent mask at discharge and will aggressively treat him and go back to inpatient rehab when able. 12/13/18 DC summary from med-surg: Hospital course: Patient had a brief hospital course after he was moved from inpatient rehabilitation after 1 day due to respiratory insufficiency and hypercapnia. Patient was placed in the ICU maintained on BiPAP with close monitoring from cardiology and pulmonology. Dr. Miner continue to monitor lymphedema. Patient dramatically improved with the use of BiPAP and Vapotherm and then nasal cannula and did very well at night on the BiPAP. Overall he did well was able to go back to inpatient rehabilitation for final stabilization of his medical problems along with his breathing machinery in preparation of discharge. HPI: Patient is ready to admit to rehab today. Patient now sleeps with biPAP and wears O2 NC during the day. Eating and drinking well and BM+. Patient is very weak and dyspneic on exertion so we will need to work on breathing with activity and have biPAP and O2 in place for DC once he is ready. Subjective/Events-last exam Discharge planned on Thursday. Only used BiPAP last night. Oxygen requirements were between 2 and 3 and feels really good about that. Discontinued antibiotics today for cellulitis and pneumonia and sepsis. Overall feels much better and feels like he is improving immensely. Conferred with RN Reviewed therapy notes Checked meds and labs Review of Systems General: Fatigue Pulmonary: Dyspnea Objective Exam Vital Signs Vital Signs Date Time Temp Pulse Resp B/P (MAP) Pulse Ox O2 Delivery O2 Flow Rate FiO2 12/17/18 07:13 93 Nasal Cannula 2.00 12/17/18 05:14 36.8 77 20 168/83 (111) 12/16/18 08:15 36 Capillary Refill : General Appearance: No Apparent Distress, WD/WN, Chronically ill, Obese HEENT: PERRL/EOMI, Normal ENT Inspection, Pharynx Normal, Moist Mucous Membranes Neck: Full Range of Motion, Normal Inspection, Non Tender, Supple Respiratory: Chest Non Tender, Lungs Clear, No Accessory Muscle Use, No Respiratory Distress, Decreased Breath Sounds Cardiovascular: Regular Rate, Rhythm, No Gallop, No JVD, No Murmur Gastrointestinal: Normal Bowel Sounds, No Organomegaly, No Pulsatile Mass, Non Tender, Soft Back: Normal Inspection, No CVA Tenderness, No Vertebral Tenderness Extremity: Normal Capillary Refill, Normal Inspection, Normal Range of Motion, Non Tender, No Calf Tenderness, Pedal Edema Neurologic/Psychiatric: Alert, Oriented x3, No Motor/Sensory Deficits, Normal Mood/Affect, foam gun operator II-XII Norm as Tested, Motor Weakness (generalized weakness lower legs) Skin: Normal Color, Warm/Dry Lymphatic: No Adenopathy Results/Procedures Lab Laboratory Tests 12/17/18 05:12 Patient resulted labs reviewed. FIM Transfers Therapy Code Descriptions/Definitions Functional [place] Measure: 0=Not Assessed/NA 4=Minimal Assistance 1=Total Assistance 5=Supervision or Setup 2=Maximal Assistance 6=Modified [place] 3=Moderate Assistance 7=Complete [place] Therapy Quality Codes: 6 Independent with activity with or without an assistive device 5 Patient requires set up or clean up by helper. Patient completes activity by themselves 4 Supervision or touching assist (CGA). [place] provide cues , steadying assist 3 The helper provides less than half the effort to complete the activity 2 The helper provides more than half the effort to complete the activity 1 Dependent. The helper does all the effort to complete an activity 7 Patient refused to complete or attempt activity 9 The patient did not perform the activity before the current illness or injury 88 Not attempted due to Medical conditions or safety concerns Transfers (B, C, W/C) (FIM): 6 Scootin Rollin Roll Left to Right (QC): 7 Supine to/from Sit: 0 Sit to/from Stand: 5 Sit to Lying (QC): 7 Sit to Stand (QC): 6 Chair/Rfr-kc-Krlfd Xfer(QC): 6 Car Transfer (QC): 4 Gait Training Does the Patient Walk?: Yes Gait (FIM): 5 Distance: 150'x2 Walk 10 feet (QC): 5 Walk 50 ft with 2 Turns(QC): 5 Walk 150 ft (QC): 5 Walking 10ft/uneven surface-QC: 4 Gait Level of Assist: 5 Gait Persons Needed: 1 Gait Assistive Device: FWW Wheelchair Training Does the Pt Use a Wheelchair?: No Stair Training Stair Training: Handrails/: 2 handrails Stairs (FIM): 1 #of Steps: 4 1 Step (curb) (QC): 4 4 Steps (QC): 5 Level of Assist: 5 Mental Status/Objective Comprehension: 7 Expression: 7 Social Interaction: 7 Problem Solvin Memory: 7 ADL-Treatment Feedin Eating (QC): 6 Groomin Oral Hygiene (QC): 6 Bathin Shower/Bathe Self (QC): 4 Upper Extremity Dressin Upper Body Dressing (QC): 5 Lower Extremity Dressin Lower Body Dressing (QC): 3 On/Off Footwear (QC): 5 (sock aid) Toiletin (Pt completes urination in urinal at recliner) Toilet Transfer (QC): 4 Shower: 5 Assessment/Plan Assessment and Plan Assess & Plan/Chief Complaint Assessment: OHS now doing very well with biPAP and NC O2 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 CRI HTN New onset AF DM Lymphedema Plan: Wrap legs Monitor cellulitis Appreciate Cardiology, Pulmonology, Wound care Lymphedema treatment BiPAP, O2 DC in future once DME set up and patient feels confident and that should be Mo nday (1) Myopathy Status: Acute (2) Respiratory insufficiency (3) Dehydration Status: Acute (4) Hyperkalemia Status: Acute (5) Acute renal failure Status: Acute (6) Back pain Status: Acute (7) Diabetes Status: Chronic (8) Hypercapnia Status: Acute (9) Hypoxia Status: Acute (10) Abdominal pain Status: Acute (11) Chest pain Status: Acute (12) Atrial fibrillation with rapid ventricular response Status: Acute (13) Cellulitis of left lower extremity Status: Acute (14) Cellulitis of left lower extremity Status: Chronic (15) Diabetes mellitus with hyperglycemia Status: Chronic (16) Lymphedema (17) Obesity hypoventilation syndrome (18) Chronic renal failure Status: Chronic YARIEL BUI DO Dec 16, 2018 08:52
[2018-12-16] MEDS: LOSARTAN 100 MG (COZAAR) TABLET PO SCH (09:13)
[2018-12-16] MEDS: ASPIRIN 81 MG CHEW (CHILDREN'S ASA) PO SCH (09:14)
[2018-12-16] MEDS: APIXABAN 5 MG (ELIQUIS) TABLET PO SCH ×2 (09:14→20:18)
[2018-12-16] MEDS: DILTIAZEM 240 MG (CARDIZEM CD) CAP PO SCH (09:14)
[2018-12-16] MEDS: AMIODARONE 200 MG (CORDARONE) TAB PO SCH ×2 (09:14→20:19)
[2018-12-16] MEDS: OMEGA 3 (FISH OIL) 1000 MG CAP PO SCH ×2 (09:14→20:18)
[2018-12-16] MEDS: MICONAZOLE 2% POWDER (DESENEX AF) 90 GM TOP SCH (09:24)
[2018-12-16] MEDS: meTOproloL SUCCINATE 50 MG (TOPROL XL) TAB PO SCH (09:24)
--- NOTE | 2018-12-16 10:57 | Physical Therapy Daily Note ---
PT Daily Note-Current Subjective Patient in recliner pre tx, agrees to PT, has no complaints of pain. Patient is now on 2L of O2 nasal canula. Appearance Patient in recliner post tx with nurse call, phone, tray, all needs met. Mental Status Patient Orientation: Normal For Age Attachments: Oxygen Transfers Therapy Quality Codes: 6 Independent with activity with or without an assistive device 5 Patient requires set up or clean up by helper. Patient completes activity by themselves 4 Supervision or touching assist (CGA). [place] provide cues , steadying assist 3 The helper provides less than half the effort to complete the activity 2 The helper provides more than half the effort to complete the activity 1 Dependent. The helper does all the effort to complete an activity 7 Patient refused to complete or attempt activity 9 The patient did not perform the activity before the current illness or injury 88 Not attempted due to Medical conditions or safety concerns Sit to Stand (QC): 6 Chair/Sxg-oh-Zgsha Xfer(QC): 6 Gait Training Gait: 5 Distance: 200'x5, 150' Walk 10 feet (QC): 4 Walk 50 ft with 2 Turns(QC): 4 Walk 150 ft (QC): 4 Gait Persons Needed: 1 Gait Assistive Device: FWW steady ambulation, slightly SOB after ambulation, needs rest breaks between bouts of ambulation to recover Treatments transfers, ambulation Assessment Current Status: Fair Progress improving endurance, less SOB PT Short Term Goals Short Term Goals Time Frame: Dec 20, 2018 Gait Distance Comment: 150' Gait Assistive Device: FWW PT Senior Product Manager Goals Senior Product Manager Goals PT Long-Term Goals Time Frame: Jan 03, 2019 Sit to Lying (QC): 6 Lying-Sitting on Side/Bed(QC): 6 Sit to Stand (QC): 6 Roll Left to Right (QC): 6 Chair/Zdy-nz-Kijzb Xfer(QC): 6 Car Transfer (QC): 6 Distance: 200' Walk 10 feet (QC): 6 Walk 10ft-Uneven Surface(QC): 6 Walk 50ft with 2 Turns (QC): 6 Walk 150 ft (QC): 6 Gait Level of Assist: 6 Gait Assistive Device: FWW # of Steps: 4 1 Step (curb) (QC): 4 4 Steps (QC): 4 Stairs Level Of Assist: 5 PT Plan Problem List Problem List: Activity Tolerance, Functional Strength, Safety, Balance, Gait, Transfer Treatment/Plan Treatment Plan: Continue Plan of Care Treatment Plan: Bed Mobility, Education, Functional Activity Johanna, Functional Strength, Group Therapy, Gait, Safety, Therapeutic Exercise, Transfers Treatment Duration: Jan 03, 2019 Frequency: At least 5 of 7 days/Wk (IRF) Estimated Hrs Per Day: 1.5 hours per day Patient and/or Family Agrees t: Yes Safety Risks/Education Patient Education: Gait Training, Transfer Techniques, Correct Positioning, Safety Issues Teaching Recipient: Patient Teaching Methods: Demonstration, Discussion Response to Teaching: Reinforcement Needed Time/GCodes Time In: 1000 Time Out: 1100 Total Billed Treatment Time: 60 Total Billed Treatment 1 visit GT 60' MARINO VEGA PT Dec 16, 2018 10:57
--- NOTE | 2018-12-16 11:00 | Occupational Ther Daily Note ---
OT Current Status-Daily Note Subjective No pain reported. Appearance Pt. up in chair. Pt. has IV going and would rather not shower with IV in. OT assures him that it can be covered, but pt. declines. Agrees to work with OT otherwise. Mental Status/Objective Patient Orientation: Person, Place, Time, Situation Therapy Code Descriptions/Definitions Functional [place] Measure: 0=Not Assessed/NA 4=Minimal Assistance 1=Total Assistance 5=Supervision or Setup 2=Maximal Assistance 6=Modified [place] 3=Moderate Assistance 7=Complete [place] ADL-Treatment Therapy Code Descriptions/Definitions Functional [place] Measure: 0=Not Assessed/NA 4=Minimal Assistance 1=Total Assistance 5=Supervision or Setup 2=Maximal Assistance 6=Modified [place] 3=Moderate Assistance 7=Complete [place] Therapy Quality Codes: 6 Independent with activity with or without an assistive device 5 Patient requires set up or clean up by helper. Patient completes activity by themselves 4 Supervision or touching assist (CGA). [place] provide cues , steadying assist 3 The helper provides less than half the effort to complete the activity 2 The helper provides more than half the effort to complete the activity 1 Dependent. The helper does all the effort to complete an activity 7 Patient refused to complete or attempt activity 9 The patient did not perform the activity before the current illness or injury 88 Not attempted due to Medical conditions or safety concerns Pt. is already dressed. Ambulates with SBA to therapy gym. Pt. states that he was on 4 L of 02, but was turned down this a.m. No shortness of breath noted. Pt. ambulated to therapy gym. OT took sats and sats at 86%. Pt. encouraged to breath deep and sats slowly recovers to 89%. Pt. turned to 3 L and pt. returned to 93%. Started series of endurance intervals on arm bike. Pt. completed 3 minute intervals, starting at 3 L 02 and min resistance. After first interval, pt. at 93%. Rested and completed another interval. Pt. at 92% but came up to 94% with rest. Resistance increased on arm bike to mod resistance, and pt. completed another 3 minutes. Pt. at 90% with quick increase to 93%. Oxygen turned to 2 L and he completed 2 more 3 minute intervals. Sats at 90-91%, but would increase to 93%. Pt. completed 5 interval total with rest breaks in between. Pt. ambulated back to room with SBA and on 2L 02. Sats at 85%. Slowly returned to 93%. OT and pt. talked in depth regarding home set up, and what equipment he might need for home. Pt. verbalizes that he has a shower chair, and will not need a new one. Does have many questions regarding home oxygen, if he should need it at home. Pt. educated that these were good questions for physician and RT. Pt. states that he is feeling stronger and more capable. All needs met in room and pt. made comfortable. Education OT Patient Education: Correct positioning, Exercise program, Modified ADL techniques, Progress toward Goal/Update tx plan, Purpose of tx/functional activities, Reviewed precautions, Rehab process, Transfer techniques Teaching Recipient: Patient Teaching Methods: Demonstration, Discussion Response to Teaching: Verbalize Understanding, Return Demonstration OT Short Term Goals Short Term Goals Upper Body Dressing(FIM): 6 Lower Body Dressing(FIM): 5 Transfers (B,C,W/C) (FIM): 6 Additional Short Term Goals: 1-Demonstrate ADL Tasks, 2-Verbalize Un derstanding, 3-ImproveStrength/Johanna 1=Demonstrate adherence to instructed precautions during ADL tasks. 2=Patient will verbalize/demonstrate understanding of assistive devices/modifications for ADL. 3=Patient will improve strength/tolerance for activity to enable patient to perform ADL's. OT Half-Way Goals Half-Way Goals Eating (QC): 6 Oral Hygiene (QC): 7 Shower/Bathe Self (QC): 6 Upper Body Dressing (QC): 6 Lower Body Dressing (QC): 6 On/Off Footwear (QC): 6 Toileting Hygiene (QC): 6 Toilet/Commode Transfer (QC): 6 Additional Goals: 1-Demonstrate ADL Tasks, 2-Verbalize Understanding, 3- ImproveStrength/Johanna 1=Demonstrate adherence to instructed precautions during ADL tasks. 2=Patient will verbalize/demonstrate understanding of assistive devices/modifications for ADL. 3=Patient will improve strength/tolerance for activity to enable patient to perform ADL's. OT Education/Plan Problem List/Assessment Assessment: Decreased Activ Tolerance, Impaired I ADL's Discharge Recommendations Plan/Recommendations: Continue POC Treatment Plan/Plan of Care Treatment,Training & Education: Yes Patient would benefit from OT for education, treatment and training to promote independence in ADL's, mobility, safety and/or upper extremity function for ADL's. Plan of Care: ADL Retraining, Caregiver Training, Functional Mobility, Group Exercise/Act as Ind, UE Funct Exercise/Act Treatment Duration: Nov 28, 2019 Frequency: At least 5 of 7 days/Wk (IRF) Estimated Hrs Per Day: 1.5 hours per day Agreement: Yes Rehab Potential: Good Time/GCodes Start Time: 08:15 Stop Time: 09:15 Total Time Billed (hr/min): 60 Billed Treatment Time 1, Ex x 45minutes, ADL x 15minutes DAPHNE HUFF OT Dec 16, 2018 11:00
--- NOTE | 2018-12-16 11:18 | Progress Note ---
MARIELLE VARGAS MED STUDENT 12/16/18 1118: Subjective Date Seen by a Provider: Dec 16, 2018 Time Seen by a Provider: 11:18 Subjective/Events-last exam Since I last saw him, Mr. Garvey continues to make progress in PT and OT. He continues to have low O2 sats after ambulation, OT reporting that it dropped to 86% today after ambulating to gym, raising to 89% with some rest, and then to 93% with 3L O2. Yesterday his O2 was lowered to 2L. Overall PT and OT note improved endurance and less SOB. Ot reports he does not want to shower with his IV in. Yesterday he reported to PT that he never lies down on his back because he gets SOB and dizzy. BP 154/74 today, cardiology notes it is difficult to control and they continue to monitor. When I saw him today he seemed well, optimistic about his capabilities. He felt capable of taking care of himself and going about all his daily activities, including cooking and laundry. His only concern was about his home oxygen, which he felt he needed, and would be able to manage. He reports his LE edema is getting better, but is still present. Review of Systems General: No Chills; Fatigue (after exercise) Pulmonary: No Dyspnea Cardiovascular: Edema; No: Chest Pain, Palpitations Neurological: No: Numbness Objective Exam Last Set of Vital Signs Vital Signs Date Time Temp Pulse Resp B/P (MAP) Pulse Ox O2 Delivery O2 Flow Rate FiO2 12/16/18 08:03 96 High Flow N/C 4.00 12/16/18 05:18 36.6 53 20 154/74 (100) 12/13/18 21:00 35 Capillary Refill : I&O Intake and Output 12/16/18 00:00 Intake Total 1500 ml Output Total 1900 ml Balance -400 ml Intake Oral 1260 ml IV Total 240 ml Output Urine Total 1900 ml # Voids 1 # Bowel Movements 2 General: Alert, Oriented X3, Cooperative Lungs: Clear to Auscultation (distant sounds) Heart: Regular Rate, Normal S1, Normal S2, No Murmurs Extremities: No Clubbing, Normal Pulses Neuro: Normal Speech Other physical findings Mild bilateral LE edema Results Lab Laboratory Tests 12/15/18 15:24: Glucometer 204H 12/15/18 20:23: Glucometer 206H 12/16/18 05:56: Glucometer 173H 12/16/18 10:57: Glucometer 298H Assessment/Plan Assessment/Plan Assess & Plan/Chief Complaint Assessment: OHS now doing very well with biPAP and NC O2 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 CRI HTN New onset AF DM Lymphedema Plan: Continue PT/OT Wrap legs Monitor cellulitis Lymphedema treatment BiPAP, O2 DC in future once DME set up and patient feels confident Clinical Quality Measures DVT/VTE Risk/Contraindication: Risk Factor Score Per Nursin RFS Level Per Nursing on Admit: 4+=Very High SANDRA BUI DO 12/17/18 0811: Supervisory-Addendum Brief Verification & Attestation Participated in pt care: history, MDM, physical Personally performed: exam, history, MDM, supervision of care Care discussed with: Medical Student Procedures: n/a Results interpretation: Verified all documentation Verification and Attestation of Medical Student E/M Service A medical student performed and documented this service in my presence. I reviewed and verified all information documented by the medical student and made modifications to such information, when appropriate. I personally performed the physical exam and medical decision making. Sandra Bui, Dec 17, 2018,08:11 MARIELLE VARGAS MED STUDENT Dec 16, 2018 11:18 SANDRA BUI DO Dec 17, 2018 08:11
--- NOTE | 2018-12-16 14:41 | Therapy Group Daily Note ---
Therapy Daily Group Note Patient Education Topic Exercises Exercises LE Seated Exercise, UE Exercise Session Ratio (pt:therapist): 5:2 Goal of Session: Education on ARU Expectations, UE/LE Strengthing Goal Met for this Session: Yes Pt Benefit of Group: Contributions to Others, Increased Functional Strength, Improved Cognition, Recognition of Peers, Socialization Other/Notes Pt ambulated to OT/PT group at [facility]. Group consisted of introductions (name, place living, favorite season and activity), socialization, UE/LE seated exercises, benefits of exercise, ARU description/expectations and memory activity. Pt introduced self appropriately and actively listened to peers. Pt demonstrated understanding of educational topics with gestures and verbally. Contributed to discussions and gave personal strategies and exercises that was appropriate to topics. Pt was able to complete UE/LE seated exercises, tolerated well. After therapy, pt lying in bed with call light/phone in reach. All needs met in room. Start Time: 13:00 Stop Time: 14:00 Total Billed Treatment Time: 60 Total Billed Treatment 1-[facility] Dec 16, 2018 14:41
--- NOTE | 2018-12-16 15:22 | NUR ---
Reviewed Team Conference Summary with patient and spouse, and neither had any concerns with information discussed. Patient agreeable to discharge date of 12/20/18, as well as agreeable to recommendation of home PT/RN. Patient states his spouse has used [facility] and he prefer to receive their services. Referral to be made. Requested the presence of RN, to aide in answering patient's questions related to home oxygen. RN did confirm a consultation has been placed for Dr. Contreras, and depending on what his recommendations are, will determine how to proceed with oxygen support. Patient states he wishes to return home on CPAP. Patient did request to utilize [facility], for oxygen equipment. Will continue to follow for discharge planning.
[2018-12-16 18:07] VITALS: BP 196/87
[2018-12-16 18:08] VITALS: BP 170/80
--- NOTE | 2018-12-16 18:23 | NUR ---
PATIENT DID NOT GET 1500 SVN BT DUE TO RT WAS WITH AN EMERGENT PATIENT IN THE NURSERY
[2018-12-17] MEDS: RT-ALBUTEROL/IPRATROPIUM 3 ML (DUONEB) VIAL INH SCH ×4 (02:58→22:20)
[2018-12-17] MEDS: inSUlin ASPART (NovoLOG) 1 UNIT/0.01 ML (CHARGE PER UNIT) SQ SCH ×4 (05:11→21:30)
[2018-12-17 05:14] VITALS: BP 168/83
[2018-12-17] MEDS: MULTIVIT W/MINERALS TAB (THERAGRAN M) PO SCH (06:18)
[2018-12-17] MEDS: ETODOLAC 300 MG (LODINE) CAP PO SCH ×2 (06:18→17:41)
[2018-12-17 06:35] LABS: HEMOGLOBIN 9.9 G/DL (13.3-17.7); MEAN PLATELET VOLUME 9.3 FL (7.4-10.4); RED CELL DISTRIBUTION WIDTH 14.2 % (10.0-14.5); WHITE BLOOD COUNT 10.4 10^3/uL (4.3-11.0)
[2018-12-17 06:49] LABS: ALBUMIN 3.3 GM/DL (3.2-4.5); BILIRUBIN,TOTAL 0.6 MG/DL (0.1-1.0); CALCIUM 9.2 MG/DL (8.5-10.1); CREATININE SERUM 1.41 MG/DL (0.60-1.30); POTASSIUM 4.3 MMOL/L (3.6-5.0); TOTAL PROTEIN 6.6 GM/DL (6.4-8.2)
--- NOTE | 2018-12-17 08:23 | Progress Note ---
[facility] 12/17/18 0823: Subjective Date Seen by a Provider: Dec 17, 2018 Time Seen by a Provider: 07:35 Subjective/Events-last exam Pt reported having a nightmare list night and when he woke up he felt as if the CPAP mask was smothering him. He switch to his nasal canula oxygen for and hour then went back to his CPAP. He reports that he has been able to stay at 2L of oxygen most of the day yesterday, except at the very beginning of his exercise in the morning he went up to 3L for about 10min. He reports a little SOA with walking short distances, but it goes away after he rests for a few minutes. He reports the swelling in his feet has gone down a little and he can see his toes look more normal. He reports have some difficulty adjusting to the oxygen nasal cannula while he is laying back or reclining in the chair. Review of Systems HEENT: No Head Aches, No Visual Changes Pulmonary: Dyspnea, Cough Cardiovascular: Edema; No: Lt Headedness Gastrointestinal: No: Nausea, Vomiting, Diarrhea Neurological: No: Numbness, Confusion Focused Exam Respiratory: Chest Non Tender, Lungs Clear, Normal Breath Sounds, No Respiratory Distress Cardiovascular: Regular Rate, Rhythm, No Gallop, No Murmur, Normal Peripheral Pulses, Other (Bilateral lower extremity edema) Peripheral Pulses: 2+ Dorsalis Pedis (R), 2+ Left Dors-Pedis (L), 2+ Radial Pulses (R), 2+ Radial Pulses (L) Skin: normal color Objective Exam Last Set of Vital Signs Vital Signs Date Time Temp Pulse Resp B/P (MAP) Pulse Ox O2 Delivery O2 Flow Rate FiO2 12/17/18 07:13 93 Nasal Cannula 2.00 12/17/18 05:14 36.8 77 20 168/83 (111) 12/16/18 08:15 36 Capillary Refill : I&O Intake and Output 12/17/18 00:00 Intake Total 2490 ml Output Total 1950 ml Balance 540 ml Intake Oral 2250 ml IV Total 240 ml Output Urine Total 1950 ml # Bowel Movements 1 General: Alert, Oriented X3, Cooperative, No Acute Distress Heart: Regular Rate, No Murmurs Neuro: Normal Speech, Normal Tone Results Lab Laboratory Tests 12/16/18 10:57: Glucometer 298H 12/16/18 16:04: Glucometer 223H 12/16/18 20:21: Glucometer 190H 12/17/18 05:10: Glucometer 152H 12/17/18 05:12: White Blood Count 10.4, Red Blood Count 3.39L, Hemoglobin 9.9L, Hematocrit 31L, Mean Corpuscular Volume 92, Mean Corpuscular Hemoglobin 29, Mean Corpuscular Hemoglobin Concent 32, Red Cell Distribution Width 14.2, Platelet Count 308, Mean Platelet Volume 9.3, Sodium Level 140, Potassium Level 4.3, Chloride Level 102, Carbon Dioxide Level 27, Anion Gap 11, Blood Urea Nitrogen 22H, Creatinine 1.41H, Estimat Glomerular Filtration Rate 51, BUN/Creatinine Ratio 16, Glucose Level 147H, Calcium Level 9.2, Corrected Calcium 9.8, Total Bilirubin 0.6, Aspartate Amino Transf (AST/SGOT) 15, Alanine Aminotransferase (ALT/SGPT) 27, Alkaline Phosphatase 50, Total Protein 6.6, Albumin 3.3 Assessment/Plan Assessment/Plan Assess & Plan/Chief Complaint Assessment: 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 CRI HTN New onset AF DM Lymphedema Plan: Continue PT/OT Wrap legs Monitor cellulitis Monitor glucose Lymphedema treatment, continue medications BiPAP, O2 Clinical Quality Measures DVT/VTE Risk/Contraindication: Risk Factor Score Per Nursin RFS Level Per Nursing on Admit: 4+=Very High SANRDA BUI DO 12/17/18 1201: Supervisory-Addendum Brief Verification & Attestation Participated in pt care: history, MDM, physical Personally performed: exam, history, MDM, supervision of care Care discussed with: Medical Student Procedures: n/a Results interpretation: Verified all documentation Verification and Attestation of Medical Student E/M Service A medical student performed and documented this service in my presence. I reviewed and verified all information documented by the medical student and made modifications to such information, when appropriate. I personally performed the physical exam and medical decision making. Sandra Bui, Dec 17, 2018,12:00 [facility] Dec 17, 2018 08:23 SANDRA BUI DO Dec 17, 2018 12:01
[2018-12-17] MEDS: ASPIRIN 81 MG CHEW (CHILDREN'S ASA) PO SCH (09:01)
[2018-12-17] MEDS: AMIODARONE 200 MG (CORDARONE) TAB PO SCH ×2 (09:01→20:46)
[2018-12-17] MEDS: DILTIAZEM 240 MG (CARDIZEM CD) CAP PO SCH (09:01)
[2018-12-17] MEDS: APIXABAN 5 MG (ELIQUIS) TABLET PO SCH ×2 (09:01→20:46)
[2018-12-17] MEDS: OMEGA 3 (FISH OIL) 1000 MG CAP PO SCH ×2 (09:01→20:46)
[2018-12-17] MEDS: LOSARTAN 100 MG (COZAAR) TABLET PO SCH (09:02)
[2018-12-17] MEDS: meTOproloL SUCCINATE 50 MG (TOPROL XL) TAB PO SCH (09:02)
[2018-12-17] MEDS: MICONAZOLE 2% POWDER (DESENEX AF) 90 GM TOP SCH (09:03)
--- NOTE | 2018-12-17 10:38 | Occupational Ther Daily Note ---
OT Current Status-Daily Note Subjective Pt sitting in chair, agrees to treatment. Has no c/o pain. Mental Status/Objective Therapy Code Descriptions/Definitions Functional [place] Measure: 0=Not Assessed/NA 4=Minimal Assistance 1=Total Assistance 5=Supervision or Setup 2=Maximal Assistance 6=Modified [place] 3=Moderate Assistance 7=Complete [place] Attachments: Oxygen ADL-Treatment Pt would like to shower this morning. Sit to stand without assist. Pt ambulated to closet and stood with good balance to retrieve clothing. Pt ambulated back to chair for rest break. Pt on 2L O2. At rest sats are 95%. After retrieving clothing sats decreased to mid 80's. RN states she has called RT for breathing treatment and increased oxygen to 4L for shower. RT came and provided breathing treatment with pt seated in chair. Gait to restroom with FWW, no LOB noted. Pt doffed shirt and shorts without assist. Used certifier to doff socks to conserve energy. Transfer to walk in shower using grab bar for safety. Pt completed bathing tasks independently. Uses long handled to sponge to wash lower legs and feet for energy conservation. Pt performed most of shower while seated, but had no LOB while standing. After shower O2 sats were 90% and increased to 94% with rest. Don pullover shirt without assist. Pt able to thread bilateral LE into shorts and stood with good balance during pant hike. Combed hair independently while seated. Pt requires occasional rest breaks throughout ADLs secondary to decreased activity tolerance. Increased time required for ADL tasks. Pt returned to recliner chair. O2 sats increased to 97% with rest while seated. Pt sitting in chair with needs met after session. Therapy Code Descriptions/Definitions Functional [place] Measure: 0=Not Assessed/NA 4=Minimal Assistance 1=Total Assistance 5=Supervision or Setup 2=Maximal Assistance 6=Modified [place] 3=Moderate Assistance 7=Complete [place] Therapy Quality Codes: 6 Independent with activity with or without an assistive device 5 Patient requires set up or clean up by helper. Patient completes activity by themselves 4 Supervision or touching assist (CGA). [place] provide cues , steadying assist 3 The helper provides less than half the effort to complete the activity 2 The helper provides more than half the effort to complete the activity 1 Dependent. The helper does all the effort to complete an activity 7 Patient refused to complete or attempt activity 9 The patient did not perform the activity before the current illness or injury 88 Not attempted due to Medical conditions or safety concerns Shower/Bathe Self (QC): 6 Upper Body Dressing (QC): 6 Lower Body Dressing (QC): 6 Education OT Patient Education: Energy conservation Teaching Recipient: Patient Teaching Methods: Discussion Response to Teaching: Verbalize Understanding OT Short Term Goals Short Term Goals Upper Body Dressing(FIM): 6 Lower Body Dressing(FIM): 5 Transfers (B,C,W/C) (FIM): 6 Additional Short Term Goals: 1-Demonstrate ADL Tasks, 2-Verbalize Understanding, 3-ImproveStrength/Johanna 1=Demonstrate adherence to instructed precautions during ADL tasks. 2=Patient will verbalize/demonstrate understanding of assistive devices/modifications for ADL. 3=Patient will improve strength/tolerance for activity to enable patient to perform ADL's. OT Diagnostic Sales Specialist Goals Diagnostic Sales Specialist Goals Eating (QC): 6 Oral Hygiene (QC): 7 Shower/Bathe Self (QC): 6 Upper Body Dressing (QC): 6 Lower Body Dressing (QC): 6 On/Off Footwear (QC): 6 Toileting Hygiene (QC): 6 Toilet/Commode Transfer (QC): 6 Additional Goals: 1-Demonstrate ADL Tasks, 2-Verbalize Understanding, 3- ImproveStrength/Johanna 1=Demonstrate adherence to instructed precautions during ADL tasks. 2=Patient will verbalize/demonstrate understanding of assistive device s/modifications for ADL. 3=Patient will improve strength/tolerance for activity to enable patient to perform ADL's. OT Education/Plan Discharge Recommendations Plan/Recommendations: Continue POC Treatment Plan/Plan of Care Patient would benefit from OT for education, treatment and training to promote independence in ADL's, mobility, safety and/or upper extremity function for ADL's. Plan of Care: ADL Retraining, Caregiver Training, Functional Mobility, Group Exercise/Act as Ind, UE Funct Exercise/Act Treatment Duration: Nov 28, 2019 Frequency: At least 5 of 7 days/Wk (IRF) Estimated Hrs Per Day: 1.5 hours per day Agreement: Yes Rehab Potential: Good Time/GCodes Start Time: 09:20 Stop Time: 10:25 Total Time Billed (hr/min): 60 Billed Treatment Time 1 visit, ADLx4(60minutes) KIRAN YOUNG OT Dec 17, 2018 10:38
--- NOTE | 2018-12-17 11:13 | PM&R Progress Note ---
Subjective HPI/CC On Admission Date Seen by Provider: Dec 17, 2018 Time Seen by Provider: 09:00 CC: Respiratory insufficiency with weakness 12/10/18 admit CC/HPI: Chief complaint: Respiratory insufficiency with hypercapnia HPI: This is a 63yoWM who presented with respiratory insufficiency and hypercapnia due altered mental status requiring BiPAP while in inpatient rehab but needed close monitoring from cardiology and pulmonology standpoint after he was moved down to rehab yesterday. He has never had a sleep study and doesn't wear oxygen at night so he definitely has obesity hypoventilation syndrome from ABG findings consistent with approval for vent mask at discharge and will aggressively treat him and go back to inpatient rehab when able. 12/13/18 DC summary from med-surg: Hospital course: Patient had a brief hospital course after he was moved from inpatient rehabilitation after 1 day due to respiratory insufficiency and hypercapnia. Patient was placed in the ICU maintained on BiPAP with close monitoring from cardiology and pulmonology. Dr. Miner continue to monitor lymphedema. Patient dramatically improved with the use of BiPAP and Vapotherm and then nasal cannula and did very well at night on the BiPAP. Overall he did well was able to go back to inpatient rehabilitation for final stabilization of his medical problems along with his breathing machinery in preparation of discharge. HPI: Patient is ready to admit to rehab today. Patient now sleeps with biPAP and wears O2 NC during the day. Eating and drinking well and BM+. Patient is very weak and dyspneic on exertion so we will need to work on breathing with activity and have biPAP and O2 in place for DC once he is ready. Subjective/Events-last exam Discharge planned on Thursday. Only used BiPAP last night that seems to be diminished in breath sounds today. We'll recheck to Dr. Contreras for recommendations Oxygen requirements are now at 2 L Discontinued antibiotics yesterday for cellulitis and pneumonia and sepsis. Dr. Gutiérrez is managing elevated blood pressure Edema is still being managed with Amari wraps Overall feels much better and feels like he is improving immensely. Conferred with RN Reviewed therapy notes Checked meds and labs Review of Systems Pulmonary: Dyspnea Objective Exam Vital Signs Vital Signs Date Time Temp Pulse Resp B/P (MAP) Pulse Ox O2 Delivery O2 Flow Rate FiO2 12/17/18 09:51 91 Nasal Cannula 4.00 12/17/18 05:14 36.8 77 20 168/83 (111) 12/16/18 08:15 36 Capillary Refill : General Appearance: No Apparent Distress, WD/WN, Chronically ill, Obese HEENT: PERRL/EOMI, Normal ENT Inspection, Pharynx Normal, Moist Mucous Membran es Neck: Full Range of Motion, Normal Inspection, Non Tender, Supple Respiratory: Chest Non Tender, Lungs Clear, Normal Breath Sounds, No Respiratory Distress Cardiovascular: Regular Rate, Rhythm, No Gallop, No Murmur, Normal Peripheral Pulses, Other (Bilateral lower extremity edema) Gastrointestinal: Normal Bowel Sounds, No Organomegaly, No Pulsatile Mass, Non Tender, Soft Back: Normal Inspection, No CVA Tenderness, No Vertebral Tenderness Extremity: Normal Capillary Refill, Normal Inspection, Normal Range of Motion, Non Tender, No Calf Tenderness, Pedal Edema Neurologic/Psychiatric: Alert, Oriented x3, No Motor/Sensory Deficits, Normal Mood/Affect, cloth colorer II-XII Norm as Tested, Motor Weakness (generalized weakness lower legs) Skin: Normal Color, Warm/Dry Lymphatic: No Adenopathy Results/Procedures Lab Laboratory Tests 12/17/18 05:12 Patient resulted labs reviewed. FIM Transfers Therapy Code Descriptions/Definitions Functional Miller Measure: 0=Not Assessed/NA 4=Minimal Assistance 1=Total Assistance 5=Supervision or Setup 2=Maximal Assistance 6=Modified Miller 3=Moderate Assistance 7=Complete Miller Therapy Quality Codes: 6 Independent with activity with or without an assistive device 5 Patient requires set up or clean up by helper. Patient completes activity by themselves 4 Supervision or touching assist (CGA). [place] provide cues , steadying assist 3 The helper provides less than half the effort to complete the activity 2 The helper provides more than half the effort to complete the activity 1 Dependent. The helper does all the effort to complete an activity 7 Patient refused to complete or attempt activity 9 The patient did not perform the activity before the current illness or injury 88 Not attempted due to Medical conditions or safety concerns Transfers (B, C, W/C) (FIM): 6 Scootin Rollin Roll Left to Right (QC): 7 Supine to/from Sit: 0 Sit to/from Stand: 5 Sit to Lying (QC): 7 Sit to Stand (QC): 6 Chair/Iuz-ov-Jkkky Xfer(QC): 6 Car Transfer (QC): 4 Gait Training Does the Patient Walk?: Yes Gait (FIM): 5 Distance: 200'x5, 150' Walk 10 feet (QC): 4 Walk 50 ft with 2 Turns(QC): 4 Walk 150 ft (QC): 4 Walking 10ft/uneven surface-QC: 4 Gait Level of Assist: 5 Gait Persons Needed: 1 Gait Assistive Device: FWW Wheelchair Training Does the Pt Use a Wheelchair?: No Stair Training Stair Training: Handrails/: 2 handrails Stairs (FIM): 1 #of Steps: 4 1 Step (curb) (QC): 4 4 Steps (QC): 5 Level of Assist: 5 Mental Status/Objective Comprehension: 7 Expression: 7 Social Interaction: 7 Problem Solvin Memory: 7 ADL-Treatment Feedin Eating (QC): 6 Groomin Oral Hygiene (QC): 6 Bathin Shower/Bathe Self (QC): 6 Upper Extremity Dressin Upper Body Dressing (QC): 6 Lower Extremity Dressin Lower Body Dressing (QC): 6 On/Off Footwear (QC): 5 (sock aid) Toiletin (Pt completes urination in urinal at recliner) Toilet Transfer (QC): 4 Shower: 5 Assessment/Plan Assessment and Plan Assess & Plan/Chief Complaint Assessment: OHS now doing very well with biPAP and NC O2 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 CRI HTN New onset AF DM Lymphedema Plan: Wrap legs Appreciate Cardiology, Pulmonology, Wound care Lymphedema treatment BiPAP, O2 DC in future once DME set up and patient feels confident and that should be Thursday (1) Myopathy Status: Acute (2) Respiratory insufficiency (3) Dehydration Status: Acute (4) Hyperkalemia Status: Acute (5) Acute renal failure Status: Acute (6) Back pain Status: Acute (7) Diabetes Status: Chronic (8) Hypercapnia Status: Acute (9) Hypoxia Status: Acute (10) Abdominal pain Status: Acute (11) Chest pain Status: Acute (12) Atrial fibrillation with rapid ventricular response Status: Acute (13) Cellulitis of left lower extremity Status: Acute (14) Cellulitis of left lower extremity Status: Chronic (15) Diabetes mellitus with hyperglycemia Status: Chronic (16) Lymphedema (17) Obesity hypoventilation syndrome (18) Chronic renal failure Status: Chronic YARIEL BUI DO Dec 17, 2018 11:13
--- NOTE | 2018-12-17 11:52 | Pulmonary Progress Note ---
Standard Progress Note Progress Notes Date Seen by Provider: Dec 17, 2018 Time Seen by Provider: 11:10 PT is sitting up in chair and has oxygen on 4L w/ no c/o tightness at this time. He reports much improved since they increased the oxygen from 2-4L today. Last night he starting feeling like he was having a harder time breathing and then this morning woke up with feeling like his shirt was too tight and was more short of breath on 2L. He reports he does cough up clear phlegm. He denies wearing oxygen at home. He denies smoking and states his last smoke was 1974. Assessment & Plan Acute on chronic respiratory failure with hypoxia; and hypercapnia -Has Vent to Mask at bedside he is wearing nightly and plan to get vent to mask for home. -C02 on admission 56 -pt is at risk for multiple hospitalizations and would benefit with vent to mask. -Titrate Fi02 for Sp02 90-94% has had to increase -SVN- increase from 3 to 4; pt had missed a tx yesterday d/t RT staffing -will give prednisone 40mg IV x 1 and then 40mg for 5 days will need to watch blood sugars -Lungs CTA but diminished Pneumonia with sepsis - Zosyn finished -will order cxr; labs reviewed and WBC 10 -Check CT of chest on out pt S/p Bacteremia with strep -cultures - neg thus far Afib LLL cellulitis - IDDM Chronic anemia Admission notes, pulmonary progress notes, labs, images, and meds were reviewed to help with continue care. SAL HOFFMAN APRN Dec 17, 2018 11:52
--- NOTE | 2018-12-17 11:55 | Physical Therapy Daily Note ---
PT Daily Note-Current Subjective Pt agreeable to PT session. Pt states he is not able to use stepper in gym due to it compresses his stomach too much. Spoke with pt's nurse, nurse requesting to leave pt on 4L O2/nc during therapy session today. Pain Numeric Pain Scale: 0-No Pain Comment: report min brief pain in knee and ankle during some standing ex's Appearance Upon arrival, pt sitting up in chair with nsg present. At end of session, pt sitting up in chair on phone ordering lunch Mental Status Patient Orientation: Person, Place, Time, Eyes Open, Situation, Normal For Age Attachments: Oxygen Transfers Therapy Quality Codes: 6 Independent with activity with or without an assistive device 5 Patient requires set up or clean up by helper. Patient completes activity by themselves 4 Supervision or touching assist (CGA). [place] provide cues , steadying assist 3 The helper provides less than half the effort to complete the activity 2 The helper provides more than half the effort to complete the activity 1 Dependent. The helper does all the effort to complete an activity 7 Patient refused to complete or attempt activity 9 The patient did not perform the activity before the current illness or injury 88 Not attempted due to Medical conditions or safety concerns Transfers (B, C, W/C): 6 Sit to Stand (QC): 6 pt demonstrating safe and good technique with hand placement during transitions Gait Training Does the Patient Walk?: Yes Distance: 150 x2 Walk 10 feet (QC): 5 Walk 50 ft with 2 Turns(QC): 5 Walk 150 ft (QC): 5 Gait Persons Needed: 1 Gait Assistive Device: FWW pt able to follow skilled verb inst to improve gait quality and safe proper use of FWW. SPO2 sats 97% to begin, during gait decreased to 89%, sit to rest <1 min increased to 96% Wheelchair Training Does the Pt Use a Wheelchair?: No Stair Training Stair Training: Handrails/: 2 handrails #of Steps: 12 12 Steps (QC): 5 Stairs: Pattern: Step to Level of Assist: 5 (Pt provided with skilled verb inst for technique) SPO2 96% at rest, 94% on stairs, 85% upon sitting to rest with increase to 95% within 1-2 min Exercises Seated Therapy Exercises: Ankle pumps, Long arc quads Seated Reps: 10 (Pt able to follow skilled inst for slow controlled motions to improve quality and technique) Standing: Hamstring curls, Heel/toe raises, 3 way Ex=Flex, Abd, Ext (lunges), Marching, Mini squats, Sit to Stand, Unilateral stance ((+) tandem stance) Standing Reps: 10 (pt requiring sitting rest breaks after every 1-2 exercises performed due to fatigue and SOA. x2 episodes due to c/o knee and ankle strain. ) SPO2 sats mid to low 90's during standing ex's, drops to 89% upon immediate sit to rest and recovers to 95% after 1-2 min sit rest Treatments SPO2 monitoring, gait, transfers, safety, balance, strength, functional mobility, education, activity tolerance, stairs Assessment Current Status: Good Progress SPO2 sats decrease upon initial sitting after activity and improve within 1-2 min sitting rests, pt only able to complete 1-2 standing ex's at a time before having to sit and rest due to c/o SOA and lightheadedness and decreasing SPO2. PT Short Term Goals Short Term Goals Time Frame: Dec 20, 2018 Gait Distance Comment: 150' Gait Assistive Device: FWW PT Retirement Goals Insemination Worker Goals PT Retirement Goals Time Frame: Jan 03, 2019 Sit to Lying (QC): 6 Lying-Sitting on Side/Bed(QC): 6 Sit to Stand (QC): 6 Roll Left to Right (QC): 6 Chair/Bzp-vq-Tdogd Xfer(QC): 6 Car Transfer (QC): 6 Distance: 200' Walk 10 feet (QC): 6 Walk 10ft-Uneven Surface(QC): 6 Walk 50ft with 2 Turns (QC): 6 Walk 150 ft (QC): 6 Gait Level of Assist: 6 Gait Assistive Device: FWW # of Steps: 4 1 Step (curb) (QC): 4 4 Steps (QC): 4 Stairs Level Of Assist: 5 PT Plan Treatment/Plan Treatment Plan: Continue Plan of Care Treatment Plan: Bed Mobility, Education, Functional Activity Johanna, Functional Strength, Group Therapy, Gait, Safety, Therapeutic Exercise, Transfers Treatment Duration: Jan 03, 2019 Frequency: At least 5 of 7 days/Wk (IRF) Estimated Hrs Per Day: 1.5 hours per day Patient and/or Family Agrees t: Yes Safety Risks/Education Patient Education: Gait Training, Transfer Techniques, Reviewed Precautions, Safety Issues Teaching Recipient: Patient Teaching Methods: Demonstration, Discussion Response to Teaching: Verbalize Understanding, Return Demonstration Time/GCodes Time In: 1100 Time Out: 1200 Total Billed Treatment Time: 60 Total Billed Treatment 1 visit, GT x20, EX x40 ERIKA FARRAR DIGITIZER OPERATOR Dec 17, 2018 11:55
[2018-12-17] MEDS ORDERED: methylPREDNISolone 40 MG/ML (Solu-MEDROL) VIAL IV NR (12:00)
--- NOTE | 2018-12-17 14:38 | Therapy Group Daily Note ---
Therapy Daily Group Note Patient Education Topic Other List Below (memory) Exercises LE Seated Exercise, Fine Motor Session Ratio (pt:therapist): 4:1 Goal of Session: Memory Strategies, UE/LE Strengthing Goal Met for this Session: Yes Pt Benefit of Group: Contributions to Others, Increased Functional Strength, Improved Cognition, Recognition of Peers, Socialization Other/Notes Pt ambulated using FWW OT group at [facility]. Group consisted introductions (name, place born, favorite food), socialization, memory strategies, memory activity, memory education and seated LE/UE exercises. Pt introduced self appropriately and actively listened to peers. Pt acknowledged understanding of educational topics with gestures and verbally. Contributed to conversations and interacted with peers throughout group. Pt able to complete UE/LE seated ex ercises then remembered one exercise to lead group. Pt did have difficulty with memory activity. After group, pt sitting in recliner with call light/phone in reach. All needs met in room. Start Time: 13:00 Stop Time: 14:10 Total Billed Treatment Time: 70 Total Billed Treatment 1-GRP TERRA SHAW Dec 17, 2018 14:38
--- NOTE | 2018-12-17 15:08 | Cardiology Progress Note ---
Subjective Date Seen by Provider: Dec 17, 2018 Time Seen by Provider: 15:07 Subjective/Events-last exam Patient is in bed, feeling better, still having dyspnea Review of Systems General: No Chills, No Night Sweats, No Fatigue, No Malaise, No Appetite, No Other HEENT: No Head Aches, No Visual Changes, No Eye Pain, No Ear Pain, No Dysphasia, No Sinus Congestion, No Post Nasal Drip, No Sore Throat, No Other Pulmonary: Dyspnea; No Cough, No Pleuritic Chest Pain, No Other Cardiovascular: No: Chest Pain, Palpitations, Orthopnea, Paroxysmal Noc. Dyspnea, Edema, Lt Headedness, Other Objective-Cardiology Exam Last Set of Vital Signs Vital Signs 12/16/18 12/17/18 12/17/18 08:15 05:14 09:51 Temp 36.8 Pulse 77 Resp 20 B/P (MAP) 168/83 (111) Pulse Ox 91 O2 Delivery Nasal Cannula O2 Flow Rate 4.00 FiO2 36 Capillary Refill : I&O Intake and Output 12/17/18 00:00 Intake Total 2490 ml Output Total 1950 ml Balance 540 ml Intake Oral 2250 ml IV Total 240 ml Output Urine Total 1950 ml # Bowel Movements 1 General: Alert, Oriented X3, Cooperative, No Acute Distress HEENT: Atraumatic, PERRLA Neck: Supple, No JVD, No Thyromegaly Lungs: Clear to Auscultation (distant sounds) Heart: Regular Rate, Normal S1, Normal S2, No Murmurs Abdomen: Normal Bowel Sounds, Soft, No Tenderness, No Hepatosplenomegaly, No Masses Extremities: No Clubbing, Normal Pulses Skin: No Rashes, No Breakdown, No Significant Lesion Neuro: Normal Speech, Normal Tone Psych/Mental Status: Mental Status NL, Mood NL Results Lab Laboratory Tests 12/17/18 05:12 A/P-Cardiology Admission Diagnosis Acute exacerbation of COPD Acute respiratory failure Hypertension Acute atrial fibrillation Assessment/Plan COPD, acute exacerbation, improving, managed by primary care team Hypertension, difficult to control, add HCTZ and monitor tolerance and response Pneumonia, improving, managed by primary care team Cellulitis, receiving antibiotics. Acute on chronic renal failure, continue to monitor renal function New-onset atrial fibrillation, back to sinus rhythm, change Cardizem to long- acting and monitor tolerance and response Morbid obesity, obesity hypoventilation syndrome and acute respiratory failure. Managed by Dr. Contreras Peripheral edema, chronic, echocardiogram showed normal left ventricular size and function with ejection fraction 55-60 percent, left atrial dilatation measuring 6.1 cm, mild mitral regurgitation, pulmonary hypertension with PA pre ssure 40-50 mmHg. Continue to monitor Coronary artery disease, history of cardiac catheterization done in 2014 showing coronary ectasia with slow flow, no significant obstructive disease. Conservat kellie management Hyperlipidemia, maintained on simvastatin, I will change to Lipitor secondary to interaction with Amiodarone. Diabetes mellitus, followed and managed by primary care physician Clinical Quality Measures DVT/VTE Risk/Contraindication: Risk Factor Score Per Nursin RFS Level Per Nursing on Admit: 4+=Very High AMI SANTACRUZ MD Dec 17, 2018 15:08
[2018-12-17] MEDS: HYDROCHLOROTHIAZIDE 25 MG (HCTZ) TAB PO SCH (15:39)
[2018-12-17 17:14] VITALS: BP 203/97
[2018-12-17] MEDS ORDERED: cloNIDine 0.1 MG (CATAPRES) TAB PO NR (17:15)
--- NOTE | 2018-12-17 17:28 | Diagnostic Imaging Report ---
INDICATION: Shortness of air, labile blood pressure. COMPARISON: 12/13/2018. FINDINGS: The heart is enlarged. There is vascular congestion. There are small pleural effusions, greater right having increased, and there are findings of pulmonary edema. IMPRESSION: New or worsened failure pattern with increased pleural fluid as well as pulmonary edema, cardiomegaly, and venous hypertension. Dictated by: Dictated on workstation # [id number]
--- NOTE | 2018-12-17 18:48 | NUR ---
X-ray results received, Dr. Simon notified. No new orders at this time.
--- NOTE | 2018-12-17 19:10 | NUR ---
bedside report received from SOLITARIO HORN, assume care of pt
--- NOTE | 2018-12-17 19:12 | NUR ---
called back left orders for LASIX 40mg IV & Solumedrol 125 IV x1 & make sure NEBS are Q4HRS & have RT come & give extra DUONEB NOW THEN Q 4HRS
[2018-12-17] MEDS: RT-ALBUTEROL/IPRATROPIUM 3 ML (DUONEB) VIAL INH PRN (19:30)
[2018-12-17] MEDS ORDERED: FUROSEMIDE 40 MG/4 ML INJ (LASIX) IVP NR (19:30)
[2018-12-17] MEDS ORDERED: methylPREDNISolone 125 MG (Solu-MEDROL) VIAL IVP NR (19:30)
[2018-12-17] MEDS: CATHETER FLUSH 10 ML SYR IV PRN (19:58)
--- NOTE | 2018-12-17 20:08 | NUR ---
tried to give lasix 40mg iv but when flushing IV site site was leaking tried to make sure all connections were tight & they were but IV site still leaking, iv site discontinued tried x1 to start new one but unable to get new site called cargo supervisor
--- NOTE | 2018-12-17 20:38 | NUR ---
meds given pt ate supper at 1900 will wait to check glucose until 2hrs after dinner
[2018-12-17 20:40] VITALS: BP 169/75
--- NOTE | 2018-12-17 20:45 | NUR ---
synthetic department supervisor maki tried x2 to start new IV site but unsuccessful, was going to see if anyone had time to try
--- NOTE | 2018-12-17 21:21 | NUR ---
notified of no IV site to give lasix & Solumedrol, orders received for lasix 40mg po & prednisone 40mg po
--- NOTE | 2018-12-17 21:30 | NUR ---
fsbs 331 but pt ordered sugar free jello but paper from kitchen does not say sugar free NovoLog 10 units given
[2018-12-17] MEDS ORDERED: FUROSEMIDE 40 MG (LASIX) TAB ONE (21:43)
[2018-12-17] MEDS ORDERED: predniSONE 20 MG TAB ONE (21:44)
[2018-12-17] MEDS ORDERED: FUROSEMIDE 40 MG (LASIX) TAB PO ONE (21:45)
[2018-12-17] MEDS ORDERED: predniSONE 20 MG TAB PO ONE (21:45)
--- NOTE | 2018-12-17 23:18 | NUR ---
ambulated with 02, walker & this nurse around ARU unit tolerated well, back to chair with 02 4/l/m per nc
[2018-12-18] MEDS: RT-ALBUTEROL/IPRATROPIUM 3 ML (DUONEB) VIAL INH SCH ×3 (02:45→15:00)
[2018-12-18 05:43] VITALS: BP 172/68
[2018-12-18] MEDS: predniSONE 20 MG TAB PO SCH (06:12)
[2018-12-18] MEDS: MULTIVIT W/MINERALS TAB (THERAGRAN M) PO SCH (06:12)
[2018-12-18] MEDS: inSUlin ASPART (NovoLOG) 1 UNIT/0.01 ML (CHARGE PER UNIT) SQ SCH ×4 (06:12→20:47)
[2018-12-18] MEDS: ETODOLAC 300 MG (LODINE) CAP PO SCH ×2 (06:13→16:50)
--- NOTE | 2018-12-18 07:12 | NUR ---
bedside report given to EL HORN
--- NOTE | 2018-12-18 07:46 | Pulmonary Progress Note ---
Subjective Time Seen by a Provider: 06:29 Subjective/Events-last exam Pt feels improved. Sepsis Event Evaluation Height, Weight, BMI Height: 5'11" Weight: 260lbs. 0.0oz. 117.251524kp; 14.24 BMI Method:Stated Exam Exam Vital Signs Date Time Temp Pulse Resp B/P (MAP) Pulse Ox O2 Delivery O2 Flow Rate FiO2 12/18/18 06:22 90 Nasal Cannula 4.00 12/18/18 05:43 36.4 64 20 172/68 (102) 94 Nasal Cannula 4.00 12/18/18 02:46 62 22 95 35.00 12/17/18 22:20 94 Nasal Cannula 4.00 12/17/18 20:50 96 High Flow N/C 4.00 12/17/18 20:40 66 18 169/75 (106) 96 Nasal Cannula 4.00 12/17/18 19:30 94 Nasal Cannula 4.00 12/17/18 17:14 36.6 69 20 203/97 (132) 94 Nasal Cannula 4.00 12/17/18 09:51 91 Nasal Cannula 4.00 12/17/18 09:00 96 High Flow N/C 4.00 I & O 12/18/18 07:00 Intake Total 1500 ml Output Total 2450 ml Balance -950 ml Height & Weight Height: 5'11" Weight: 260lbs. 0.0oz. [id number]; 14.24 BMI Method:Stated General Appearance: No Apparent Distress, WD/WN, Chronically ill, Obese HEENT: PERRL/EOMI, Normal ENT Inspection, Pharynx Normal, Moist Mucous Membranes Neck: Full Range of Motion, Normal Inspection, Non Tender, Supple Respiratory: Chest Non Tender, Lungs Clear, Normal Breath Sounds, No Respiratory Distress Cardiovascular: Regular Rate, Rhythm, No Gallop, No Murmur, Normal Peripheral Pulses, Other (Bilateral lower extremity edema) Peripheral Pulses: 2+ Dorsalis Pedis (R), 2+ Left Dors-Pedis (L), 2+ Radial Pulses (R), 2+ Radial Pulses (L) Extremity: Normal Capillary Refill, Normal Inspection, Normal Range of Motion, Non Tender, No Calf Tenderness, Pedal Edema Neurologic/Psychiatric: Alert, Oriented x3, No Motor/Sensory Deficits, Normal Mood/Affect, pharmacoepidemiologist II-XII Norm as Tested, Motor Weakness (generalized weakness lower legs) Skin: Normal Color, Warm/Dry Lymphatic: No Adenopathy Results Lab Laboratory Tests 12/17/18 05:12 Assessment/Plan Assessment/Plan Acute on chronic respiratory failure with hypoxia; and hypercapnia -Has Vent to Mask at bedside -C02 on admission 56 -pt is at risk for multiple hospitalizations and would benefit with vent to mask. -Titrate Fi02 for Sp02 90-94% has had to increase -SVN- increase from 3 to 4; pt had missed a tx yesterday d/t RT staffing - prednisone 40mg for 5 days -Repeat labs -Give lasix 80mg x 1 today then 40mg daily- secondary to CXR showing increased pulmoary edema Pneumonia with sepsis - Zosyn finished -will order cxr; labs reviewed and WBC 10 -Check CT of chest on out pt S/p Bacteremia with strep -cultures - neg thus far Afib LLL cellulitis - IDDM Chronic anemia DEJA SMITH DO Dec 18, 2018 07:46
[2018-12-18] MEDS ORDERED: FUROSEMIDE 40 MG (LASIX) TAB PO NR (07:47)
[2018-12-18] MEDS: APIXABAN 5 MG (ELIQUIS) TABLET PO SCH ×2 (08:06→20:42)
[2018-12-18] MEDS: LOSARTAN 100 MG (COZAAR) TABLET PO SCH (08:06)
[2018-12-18] MEDS: ASPIRIN 81 MG CHEW (CHILDREN'S ASA) PO SCH (08:06)
[2018-12-18] MEDS: OMEGA 3 (FISH OIL) 1000 MG CAP PO SCH ×2 (08:06→20:42)
[2018-12-18] MEDS: meTOproloL SUCCINATE 50 MG (TOPROL XL) TAB PO SCH (08:06)
[2018-12-18] MEDS: DILTIAZEM 240 MG (CARDIZEM CD) CAP PO SCH (08:06)
[2018-12-18] MEDS: HYDROCHLOROTHIAZIDE 25 MG (HCTZ) TAB PO SCH (08:06)
[2018-12-18] MEDS: AMIODARONE 200 MG (CORDARONE) TAB PO SCH ×2 (08:06→20:42)
[2018-12-18 08:44] LABS: BASOPHILS % (AUTO) 0 % (0-10); EOSINOPHILS % (AUTO) 0 % (0-10); HEMATOCRIT 31 % (40-54); HEMOGLOBIN 9.9 G/DL (13.3-17.7); LYMPHOCYTES # (AUTO) 0.4 X 10^3 (1.0-4.0); LYMPHOCYTES % (AUTO) 4 % (12-44); MEAN CORPUSCULAR HEMOGLOBIN 30 PG (25-34); MEAN CORPUSCULAR HGB CONC 33 G/DL (32-36); MEAN CORPUSCULAR VOLUME 91 FL (80-99); MEAN PLATELET VOLUME 9.5 FL (7.4-10.4); MONOCYTES # (AUTO) 0.2 X 10^3 (0.0-1.0); MONOCYTES % (AUTO) 3 % (0-12); NEUTROPHILS # (AUTO) 9.1 X 10^3 (1.8-7.8); NEUTROPHILS % (AUTO) 93 % (42-75); PLATELET COUNT 289 10^3/uL (130-400); RED CELL DISTRIBUTION WIDTH 13.8 % (10.0-14.5); WHITE BLOOD COUNT 9.7 10^3/uL (4.3-11.0)
[2018-12-18] MEDS ORDERED: KCL 20 MEQ TAB (K-DUR) PO SCH (09:00)
[2018-12-18 09:07] LABS: ALBUMIN 3.5 GM/DL (3.2-4.5); BILIRUBIN,TOTAL 0.5 MG/DL (0.1-1.0); CALCIUM 8.9 MG/DL (8.5-10.1); CREATININE SERUM 1.67 MG/DL (0.60-1.30); MAGNESIUM 1.9 MG/DL (1.6-2.4); PHOSPHORUS 4.7 MG/DL (2.3-4.7); POTASSIUM 5.1 MMOL/L (3.6-5.0)
--- NOTE | 2018-12-18 09:32 | NUR ---
Yuan is a 63 yo male present on inpatient patient rehab d/t respiratory failure/debility. He is A&O X 4 and denies pain. Patient is currently a SBA with all transfers, therapy has requested patient up Ad TFIFANIE in room. This nurse will discuss with Dr. Villagomez. Dr. Contreras rounded this morning and ordered 80mg of Lasix to be administered, along with oral potassium supplement. Patient reports his feels "like he can breath easier than last night" after first lasix dose. Lower extremities currently have BRANDEN wraps in place d/t edema. No further issues noted. This nurse will continue to monitor patient throughout shift.
--- NOTE | 2018-12-18 09:57 | Diagnostic Imaging Report ---
EXAMINATION: Chest radiograph, portable AP view. DATE: 12/18/2018 9:51 AM hours. INDICATION: 63-year-old male, shortness of breath. COMPARISON: December 17, 2018. FINDINGS: Stable overall appearance of the cardiomediastinal silhouette. There is no identified pneumothorax. There is obscuration of visualization of both hemidiaphragms with blunting of the bilateral lateral costophrenic angles. There is additional nonspecific bibasilar airspace consolidation. There are mildly prominent bilateral interstitial opacities. IMPRESSION: 1. Probable bilateral pleural effusions with nonspecific bibasilar airspace consolidation and mildly prominent bilateral interstitial opacities which may potentially reflect mild pulmonary interstitial edema. Dictated by: Dictated on workstation # [id number]
[2018-12-18 10:37] LABS: BAND NEUTROPHILS 2 %; LYMPHOCYTES % (MANUAL) 5 %; NEUTROPHILS % (MANUAL) 93 %; RBC MORPH NORMAL
--- NOTE | 2018-12-18 11:19 | Physical Therapy Daily Note ---
PT Daily Note-Current Subjective Pt agreeable to PT session. Pt states feeling very good today. States he went for a walk in hallway with nursing last night and felt pretty good about it and didn't feel that he had to take as many rest breaks Pain Numeric Pain Scale: 0-No Pain Appearance Pt sitting up in chair awake and alert upon arrival. At end of session, pt sitting up in chair with call light, phone and bedside table within reach Mental Status Patient Orientation: Person, Place, Time, Eyes Open, Situation, Normal For Age Attachments: Oxygen (4 L/NC) Transfers Therapy Quality Codes: 6 Independent with activity with or without an assistive device 5 Patient requires set up or clean up by helper. Patient completes activity by themselves 4 Supervision or touching assist (CGA). [place] provide cues , steadying assist 3 The helper provides less than half the effort to complete the activity 2 The helper provides more than half the effort to complete the activity 1 Dependent. The helper does all the effort to complete an activity 7 Patient refused to complete or attempt activity 9 The patient did not perform the activity before the current illness or injury 88 Not attempted due to Medical conditions or safety concerns Sit to Stand (QC): 6 Chair/Pwh-oh-Dqcvu Xfer(QC): 6 Pt demonstrating safe transitions with good technique. Gait Training Does the Patient Walk?: Yes Distance: 150 x2 Walk 10 feet (QC): 6 Walk 50 ft with 2 Turns(QC): 6 Walk 150 ft (QC): 4 Gait Persons Needed: 1 Gait Assistive Device: FWW several standing rest breaks required due to SOA after about 75' distance and fatigue, No LOB or unsteadiness. Pt requesting and discussed with nurse and physician to be up ad rhonda in room to and from bathroom. Exercises Standing: Heel/toe raises (on airex x20 min use of // bars), Marching (on airex x20 with min use of // bars), Unilateral stance ((+)tandem stance (+)NBOS stance on Airex x30 sec each LE) Pt continues to require sitting rest breaks after 1-2 exercises performed due to SOA and fatigue Treatments transfers, safety, gait, balance, strength, activity tolerance, functional mobility, education Assessment Current Status: Good Progress, Fair Progress Continues to require 2 or more minutes to recover from SOA, fatigue and decreased SPO2 PT Short Term Goals Short Term Goals Time Frame: Dec 20, 2018 Gait Distance Comment: 150' Gait Assistive Device: FWW PT Care Home Goals Potato Chip Fryer Goals PT Potato Chip Fryer Goals Time Frame: Jan 03, 2019 Sit to Lying (QC): 6 Lying-Sitting on Side/Bed(QC): 6 Sit to Stand (QC): 6 Roll Left to Right (QC): 6 Chair/Mbo-nx-Iktdl Xfer(QC): 6 Car Transfer (QC): 6 Distance: 200' Walk 10 feet (QC): 6 Walk 10ft-Uneven Surface(QC): 6 Walk 50ft with 2 Turns (QC): 6 Walk 150 ft (QC): 6 Gait Level of Assist: 6 Gait Assistive Device: FWW # of Steps: 4 1 Step (curb) (QC): 4 4 Steps (QC): 4 Stairs Level Of Assist: 5 PT Plan Treatment/Plan Treatment Plan: Continue Plan of Care Treatment Plan: Bed Mobility, Education, Functional Activity Johanna, Functional Strength, Group Therapy, Gait, Safety, Therapeutic Exercise, Transfers Treatment Duration: Jan 03, 2019 Frequency: At least 5 of 7 days/Wk (IRF) Estimated Hrs Per Day: 1.5 hours per day Patient and/or Family Agrees t: Yes Safety Risks/Education Patient Education: Gait Training, Transfer Techniques, Safety Issues Teaching Recipient: Patient Teaching Methods: Discussion Response to Teaching: Verbalize Understanding Time/GCodes Time In: 856 Time Out: 920 Total Billed Treatment Time: 24 Total Billed Treatment 1 visit, GT x13 min, EX x11 min ERIKA FARRAR PTA Dec 18, 2018 11:19
[2018-12-18] MEDS: MICONAZOLE 2% POWDER (DESENEX AF) 90 GM TOP SCH (11:25)
--- NOTE | 2018-12-18 11:38 | Cardiology Progress Note ---
Subjective Date Seen by Provider: Dec 18, 2018 Time Seen by Provider: 11:37 Subjective/Events-last exam patient is sitting in a chair, reporting improvement in his breathing, denied any chest pain Review of Systems General: No Chills, No Night Sweats, No Fatigue, No Malaise, No Appetite, No Other HEENT: No Head Aches, No Visual Changes, No Eye Pain, No Ear Pain, No D ysphasia, No Sinus Congestion, No Post Nasal Drip, No Sore Throat, No Other Pulmonary: Dyspnea; No Cough, No Pleuritic Chest Pain, No Other Cardiovascular: No: Chest Pain, Palpitations, Orthopnea, Paroxysmal Noc. Dyspnea, Edema, Lt Headedness, Other Objective-Cardiology Exam Last Set of Vital Signs Vital Signs 12/16/18 12/18/18 12/18/18 08:15 05:43 10:06 Temp 36.4 Pulse 64 Resp 20 B/P (MAP) 172/68 (102) Pulse Ox 94 O2 Delivery Nasal Cannula O2 Flow Rate 4.00 FiO2 36 Capillary Refill : I&O Intake and Output 12/18/18 00:00 Intake Total 1800 ml Output Total 3000 ml Balance -1200 ml Intake Oral 1800 ml Output Urine Total 3000 ml # Bowel Movements 2 General: Alert, Oriented X3, Cooperative, No Acute Distress HEENT: Atraumatic, PERRLA Neck: Supple, No JVD, No Thyromegaly Lungs: Clear to Auscultation (distant sounds) Heart: Regular Rate, Normal S1, Normal S2, No Murmurs Abdomen: Normal Bowel Sounds, Soft, No Tenderness, No Hepatosplenomegaly, No Masses Extremities: No Clubbing, Normal Pulses Skin: No Rashes, No Breakdown, No Significant Lesion Neuro: Normal Speech, Normal Tone Psych/Mental Status: Mental Status NL, Mood NL Results Lab Laboratory Tests 12/18/18 08:10 A/P-Cardiology Admission Diagnosis Acute exacerbation of COPD Acute respiratory failure Hypertension Acute atrial fibrillation Assessment/Plan COPD, acute exacerbation, improving, maintained on prednisone at this time and managed by primary care team Hypertension, difficult to control while on prednisone, patient is receiving multiple medication including Toprol 50 mg daily, Cardizem 240 mg daily, losartan 100 mg daily, hydrochlorothiazide 25 mg daily and Lasix, continue on c urrent medication monitor blood pressure Hyperkalemia, I'll decrease the daily potassium replacement to 20 mEq and continue on Lasix and continue to monitor Pneumonia, improving, managed by primary care team Cellulitis, managed by primary care team Acute on chronic renal failure, continue to monitor renal function New-onset atrial fibrillation, back to sinus rhythm, change Cardizem to long-ac ting and monitor tolerance and response Morbid obesity, obesity hypoventilation syndrome and acute respiratory failure. Managed by Dr. Contreras Peripheral edema, chronic, echocardiogram showed normal left ventricular size and function with ejection fraction 55-60 percent, left atrial dilatation kayleen suring 6.1 cm, mild mitral regurgitation, pulmonary hypertension with PA pressure 40-50 mmHg. Continue to monitor Coronary artery disease, history of cardiac catheterization done in 2014 showing coronary ectasia with slow flow, no significant obstructive disease. Conservative management Hyperlipidemia, maintained on simvastatin, I will change to Lipitor secondary to interaction with Amiodarone. Diabetes mellitus, followed and managed by primary care physician Clinical Quality Measures DVT/VTE Risk/Contraindication: Risk Factor Score Per Nursin RFS Level Per Nursing on Admit: 4+=Very High AMI SANTACRUZ MD Dec 18, 2018 11:38
--- NOTE | 2018-12-18 12:23 | PM&R Progress Note ---
Subjective HPI/CC On Admission Date Seen by Provider: Dec 18, 2018 Time Seen by Provider: 11:00 CC: Respiratory insufficiency with weakness 12/10/18 admit CC/HPI: Chief complaint: Respiratory insufficiency with hypercapnia HPI: This is a 63yoWM who presented with respiratory insufficiency and hypercapnia due altered mental status requiring BiPAP while in inpatient rehab but needed close monitoring from cardiology and pulmonology standpoint after he was moved down to rehab yesterday. He has never had a sleep study and doesn't wear oxygen at night so he definitely has obesity hypoventilation syndrome from ABG findings consistent with approval for vent mask at discharge and will aggressively treat him and go back to inpatient rehab when able. 12/13/18 DC summary from med-surg: Hospital course: Patient had a brief hospital course after he was moved from inpatient rehabilitation after 1 day due to respiratory insufficiency and hypercapnia. Patient was placed in the ICU maintained on BiPAP with close monitoring from cardiology and pulmonology. Dr. Miner continue to monitor lymphedema. Patient dramatically improved with the use of BiPAP and Vapotherm and then nasal cannula and did very well at night on the BiPAP. Overall he did well was able to go back to inpatient rehabilitation for final stabilization of his medical problems along with his breathing machinery in preparation of discharge. HPI: Patient is ready to admit to rehab today. Patient now sleeps with biPAP and wears O2 NC during the day. Eating and drinking well and BM+. Patient is very weak and dyspneic on exertion so we will need to work on breathing with activity and have biPAP and O2 in place for DC once he is ready. Subjective/Events-last exam Discharge planned on Thursday. Only used BiPAP last night that seems to be diminished in breath sounds so Dr Contreras ordered Lasix 40mg then 80mg with good output and improved status Oxygen requirements are now at 2 L most of the time Discontinued antibiotics for cellulitis and pneumonia and sepsis. Dr. Gutiérrez is managing elevated blood pressure which is chronic and I conferred with him Edema is still being managed with Amari wraps which is improving Overall feels much better and feels like he is improving immensely. Conferred with RN Reviewed therapy notes Checked meds and labs Review of Systems Pulmonary: Dyspnea Objective Exam Vital Signs Vital Signs Date Time Temp Pulse Resp B/P (MAP) Pulse Ox O2 Delivery O2 Flow Rate FiO2 10/5/19 19:30 95 Nasal Cannula 4.00 12/18/18 18:00 36.8 62 18 180/76 (110) 12/16/18 08:15 36 Capillary Refill : General Appearance: No Apparent Distress, WD/WN, Chronically ill, Obese HEENT: PERRL/EOMI, Normal ENT Inspection, Pharynx Normal, Moist Mucous Membran es Neck: Full Range of Motion, Normal Inspection, Non Tender, Supple Respiratory: Chest Non Tender, Lungs Clear, Normal Breath Sounds, No Respiratory Distress Cardiovascular: Regular Rate, Rhythm, No Gallop, No Murmur, Normal Peripheral Pulses, Other (Bilateral lower extremity edema) Gastrointestinal: Normal Bowel Sounds, No Organomegaly, No Pulsatile Mass, Non Tender, Soft Back: Normal Inspection, No CVA Tenderness, No Vertebral Tenderness Extremity: Normal Capillary Refill, Normal Inspection, Normal Range of Motion, Non Tender, No Calf Tenderness, Pedal Edema Neurologic/Psychiatric: Alert, Oriented x3, No Motor/Sensory Deficits, Normal Mood/Affect, optical effects layout person II-XII Norm as Tested, Motor Weakness (generalized weakness lower legs) Skin: Normal Color, Warm/Dry Lymphatic: No Adenopathy Results/Procedures Lab Laboratory Tests 12/18/18 08:10 12/18/18 16:41 Patient resulted labs reviewed. FIM Transfers Therapy Code Descriptions/Definitions Functional [place] Measure: 0=Not Assessed/NA 4=Minimal Assistance 1=Total Assistance 5=Supervision or Setup 2=Maximal Assistance 6=Modified [place] 3=Moderate Assistance 7=Complete [place] Therapy Quality Codes: 6 Independent with activity with or without an assistive device 5 Patient requires set up or clean up by helper. Patient completes activity by themselves 4 Supervision or touching assist (CGA). [place] provide cues , steadying assist 3 The helper provides less than half the effort to complete the activity 2 The helper provides more than half the effort to complete the activity 1 Dependent. The helper does all the effort to complete an activity 7 Patient refused to complete or attempt activity 9 The patient did not perform the activity before the current illness or injury 88 Not attempted due to Medical conditions or safety concerns Transfers (B, C, W/C) (FIM): 6 Scootin Rollin Roll Left to Right (QC): 7 Supine to/from Sit: 0 Sit to/from Stand: 5 Sit to Lying (QC): 7 Sit to Stand (QC): 6 Chair/Cxm-hf-Bhypg Xfer(QC): 6 Car Transfer (QC): 4 Gait Training Does the Patient Walk?: Yes Gait (FIM): 5 Distance: 150 x2 Walk 10 feet (QC): 6 Walk 50 ft with 2 Turns(QC): 6 Walk 150 ft (QC): 4 Walking 10ft/uneven surface-QC: 4 Gait Level of Assist: 5 Gait Persons Needed: 1 Gait Assistive Device: FWW Wheelchair Training Does the Pt Use a Wheelchair?: No Stair Training Stair Training: Handrails/: 2 handrails Stairs (FIM): 1 #of Steps: 12 1 Step (curb) (QC): 4 4 Steps (QC): 5 12 Steps (QC): 5 Stairs: Pattern: Step to Level of Assist: 5 Mental Status/Objective Comprehension: 7 Expression: 7 Social Interaction: 7 Problem Solvin Memory: 7 ADL-Treatment Feedin Eating (QC): 6 Groomin Oral Hygiene (QC): 6 Bathin Shower/Bathe Self (QC): 6 Upper Extremity Dressin Upper Body Dressing (QC): 6 Lower Extremity Dressin Lower Body Dressing (QC): 6 On/Off Footwear (QC): 5 (sock aid) Toiletin (Pt completes urination in urinal at recliner) Toilet Transfer (QC): 4 Shower: 5 Assessment/Plan Assessment and Plan Assess & Plan/Chief Complaint Assessment: OHS now doing very well with biPAP and NC O2 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 CRI HTN New onset AF DM Lymphedema Plan: Wrap legs Appreciate Cardiology, Pulmonology, Wound care Lymphedema treatment Lasix BiPAP, O2 DC in future once DME set up and patient feels confident and that should be Thursday (1) Myopathy Status: Acute (2) Respiratory insufficiency (3) Dehydration Status: Acute (4) Hyperkalemia Status: Acute (5) Acute renal failure Status: Acute (6) Back pain Status: Acute (7) Diabetes Status: Chronic (8) Hypercapnia Status: Acute (9) Hypoxia Status: Acute (10) Abdominal pain Status: Acute (11) Chest pain Status: Acute (12) Atrial fibrillation with rapid ventricular response Status: Acute (13) Cellulitis of left lower extremity Status: Acute (14) Cellulitis of left lower extremity Status: Chronic (15) Diabetes mellitus with hyperglycemia Status: Chronic (16) Lymphedema (17) Obesity hypoventilation syndrome (18) Chronic renal failure Status: Chronic YARIEL BUI DO Dec 18, 2018 12:23
[2018-12-18 16:48] LABS: BASOPHILS % (AUTO) 0 % (0-10); EOSINOPHILS % (AUTO) 0 % (0-10); HEMATOCRIT 31 % (40-54); HEMOGLOBIN 10.3 G/DL (13.3-17.7); LYMPHOCYTES # (AUTO) 0.5 X 10^3 (1.0-4.0); LYMPHOCYTES % (AUTO) 4 % (12-44); MEAN CORPUSCULAR HEMOGLOBIN 30 PG (25-34); MEAN CORPUSCULAR HGB CONC 34 G/DL (32-36); MEAN CORPUSCULAR VOLUME 90 FL (80-99); MEAN PLATELET VOLUME 8.9 FL (7.4-10.4); MONOCYTES # (AUTO) 0.6 X 10^3 (0.0-1.0); MONOCYTES % (AUTO) 5 % (0-12); NEUTROPHILS % (AUTO) 91 % (42-75); PLATELET COUNT 331 10^3/uL (130-400); RED CELL DISTRIBUTION WIDTH 14.1 % (10.0-14.5); WHITE BLOOD COUNT 12.2 10^3/uL (4.3-11.0)
[2018-12-18 17:08] LABS: CALCIUM 9.3 MG/DL (8.5-10.1); CREATININE SERUM 1.79 MG/DL (0.60-1.30); MAGNESIUM 2.1 MG/DL (1.6-2.4); PHOSPHORUS 3.8 MG/DL (2.3-4.7)
[2018-12-18 18:00] VITALS: BP 180/76
--- NOTE | 2018-12-18 18:53 | NUR ---
fsbs 402 but pt had already ate hs snack of ice cream, jello & milk, NovoLog 12 units given Addendum: 12/18/18 at 2132 by SUJATA FIGUEROA RN time should be 2052
--- NOTE | 2018-12-18 19:05 | NUR ---
bedside report received from JOHNNY HORN, ASSUME C[facility] OF PT
[2018-12-18] MEDS: RT-ALBUTEROL/IPRATROPIUM 3 ML (DUONEB) VIAL INH PRN ×2 (19:30→21:58)
--- NOTE | 2018-12-18 19:48 | NUR ---
contacted about pt lab potassium 5.0 & K-DUR 20meq ordered daily, orders received to hold todays dose
[2018-12-18 20:40] VITALS: BP 165/80
--- NOTE | 2018-12-18 20:53 | NUR ---
fsbs 402 but pt had already ate hs snack of ice cream, jello & milk advised pt to wait until nurse checks blood sugar to eat snack, verbalized understanding, NovoLog 12 units given
--- NOTE | 2018-12-18 22:20 | NUR ---
ambulated aound whole ARU with , waker & this nurse, tolerated well, back to chair
[2018-12-19 05:40] VITALS: BP 147/74
[2018-12-19] MEDS: inSUlin ASPART (NovoLOG) 1 UNIT/0.01 ML (CHARGE PER UNIT) SQ SCH ×4 (06:13→21:01)
[2018-12-19] MEDS: ETODOLAC 300 MG (LODINE) CAP PO SCH ×2 (06:14→16:21)
[2018-12-19] MEDS: predniSONE 20 MG TAB PO SCH (06:14)
[2018-12-19] MEDS: MULTIVIT W/MINERALS TAB (THERAGRAN M) PO SCH (06:14)
[2018-12-19] MEDS: KCL 20 MEQ TAB (K-DUR) PO SCH (06:15)
--- NOTE | 2018-12-19 06:31 | Pulmonary Progress Note ---
Subjective Time Seen by a Provider: 06:31 Sepsis Event Evaluation Height, Weight, BMI Height: 5'11" Weight: 260lbs. 0.0oz. 117.001103ck; 14.24 BMI Method:Stated Exam Exam Vital Signs Date Time Temp Pulse Resp B/P (MAP) Pulse Ox O2 Delivery O2 Flow Rate FiO2 12/19/18 05:40 36.3 66 18 147/74 (98) 97 NIV Bilevel 35.00 12/19/18 01:35 63 20 95 35.00 12/18/18 21:58 92 Nasal Cannula 4.00 12/18/18 20:45 96 High Flow N/C 4.00 12/18/18 20:40 66 20 165/80 (108) 96 Nasal Cannula 4.00 12/18/18 19:30 95 Nasal Cannula 4.00 12/18/18 18:00 36.8 62 18 180/76 (110) 96 Nasal Cannula 4.00 12/18/18 10:06 94 Nasal Cannula 4.00 12/18/18 08:20 96 High Flow N/C 4.00 I & O 12/19/18 07:00 Intake Total 2970 ml Output Total 2075 ml Balance 895 ml Height & Weight Height: 5'11" Weight: 260lbs. 0.0oz. 117.662201iw; 14.24 BMI Method:Stated General Appearance: No Apparent Distress, WD/WN, Chronically ill, Obese HEENT: PERRL/EOMI, Normal ENT Inspection, Pharynx Normal, Moist Mucous Membranes Neck: Full Range of Motion, Normal Inspection, Non Tender, Supple Respiratory: Chest Non Tender, Lungs Clear, Normal Breath Sounds, No Respiratory Distress Cardiovascular: Regular Rate, Rhythm, No Gallop, No Murmur, Normal Peripheral Pulses, Other (Bilateral lower extremity edema) Peripheral Pulses: 2+ Dorsalis Pedis (R), 2+ Left Dors-Pedis (L), 2+ Radial Pulses (R), 2+ Radial Pulses (L) Extremity: Normal Capillary Refill, Normal Inspection, Normal Range of Motion, Non Tender, No Calf Tenderness, Pedal Edema Neurologic/Psychiatric: Alert, Oriented x3, No Motor/Sensory Deficits, Normal Mood/Affect, regional manager II-XII Norm as Tested, Motor Weakness (generalized weakness lower legs) Skin: Normal Color, Warm/Dry Lymphatic: No Adenopathy Results Lab Laboratory Tests 10/5/19 08:10 12/18/18 16:41 Assessment/Plan Assessment/Plan Acute on chronic respiratory failure with hypoxia; and hypercapnia -Has Vent to Mask at bedside -C02 on admission 56 -pt is at risk for multiple hospitalizations and would benefit with vent to mask. -Titrate Fi02 for Sp02 90-94% has had to increase -SVN- increase from 3 to 4; pt had missed a tx yesterday d/t RT staffing - prednisone 40mg for 5 days -Repeat labs and CXR pending -Give lasix 40mg daily- Pneumonia with sepsis - Zosyn finished -will order cxr; labs reviewed and WBC 10 -Check CT of chest on out pt S/p Bacteremia with strep -cultures - neg thus far Afib LLL cellulitis - IDDM Chronic anemia DEJA SMITH DO Dec 19, 2018 06:31
[2018-12-19 06:33] LABS: BASOPHILS % (AUTO) 0 % (0-10); EOSINOPHILS # (AUTO) 0.1 10^3/uL (0.0-0.3); EOSINOPHILS % (AUTO) 1 % (0-10); HEMATOCRIT 31 % (40-54); LYMPHOCYTES # (AUTO) 1.1 X 10^3 (1.0-4.0); LYMPHOCYTES % (AUTO) 10 % (12-44); MEAN CORPUSCULAR HEMOGLOBIN 30 PG (25-34); MEAN CORPUSCULAR HGB CONC 33 G/DL (32-36); MEAN CORPUSCULAR VOLUME 91 FL (80-99); MONOCYTES # (AUTO) 1.1 X 10^3 (0.0-1.0); MONOCYTES % (AUTO) 10 % (0-12); NEUTROPHILS # (AUTO) 8.5 X 10^3 (1.8-7.8); NEUTROPHILS % (AUTO) 79 % (42-75); PLATELET COUNT 329 10^3/uL (130-400); RED CELL DISTRIBUTION WIDTH 14.4 % (10.0-14.5); WHITE BLOOD COUNT 10.8 10^3/uL (4.3-11.0)
[2018-12-19 06:53] LABS: CALCIUM 9.3 MG/DL (8.5-10.1); CREATININE SERUM 1.83 MG/DL (0.60-1.30); MAGNESIUM 2.1 MG/DL (1.6-2.4); POTASSIUM 4.6 MMOL/L (3.6-5.0)
--- NOTE | 2018-12-19 07:10 | NUR ---
bedside report given to BECKA HORN
[2018-12-19] MEDS: OMEGA 3 (FISH OIL) 1000 MG CAP PO SCH ×2 (08:41→20:56)
[2018-12-19] MEDS: ASPIRIN 81 MG CHEW (CHILDREN'S ASA) PO SCH (08:41)
[2018-12-19] MEDS: meTOproloL SUCCINATE 50 MG (TOPROL XL) TAB PO SCH (08:41)
[2018-12-19] MEDS: APIXABAN 5 MG (ELIQUIS) TABLET PO SCH ×2 (08:41→20:56)
[2018-12-19] MEDS: HYDROCHLOROTHIAZIDE 25 MG (HCTZ) TAB PO SCH (08:41)
[2018-12-19] MEDS: AMIODARONE 200 MG (CORDARONE) TAB PO SCH ×2 (08:41→20:56)
[2018-12-19] MEDS: DILTIAZEM 240 MG (CARDIZEM CD) CAP PO SCH (08:41)
[2018-12-19] MEDS: LOSARTAN 100 MG (COZAAR) TABLET PO SCH (08:41)
[2018-12-19] MEDS: FUROSEMIDE 40 MG (LASIX) TAB PO SCH (08:41)
[2018-12-19] MEDS: MICONAZOLE 2% POWDER (DESENEX AF) 90 GM TOP SCH (08:44)
--- NOTE | 2018-12-19 10:58 | NUR ---
PATIENT SAT DROPPED TO 81% AFTER BEING PLACED ON ROOM AIR. PATENT WAS PLACED BACK ON OXYGEN AT 4 L/M PATIENT COULD NOT WALK ANY FARTHER THAT ROOM DOOR BEFORE COMPLAINING OF S.O.A. AND COULD GO NO FARTHER Addendum: 12/19/18 at 1058 by ANANT EDGAR RT Amended: Links added.
--- NOTE | 2018-12-19 11:37 | NUR ---
Dr. Villagomez to floor with orders to increase Levemir to 20 units SQ BID.
--- NOTE | 2018-12-19 12:28 | Cardiology Progress Note ---
Subjective Date Seen by Provider: Dec 19, 2018 Time Seen by Provider: 12:27 Subjective/Events-last exam patient is laying down in bed, feeling better, denied any chest pain, breathing better Review of Systems General: No Chills, No Night Sweats, No Fatigue, No Malaise, No Appetite, No Other HEENT: No Head Aches, No Visual Changes, No Eye Pain, No Ear Pain, No Dysphas ia, No Sinus Congestion, No Post Nasal Drip, No Sore Throat, No Other Pulmonary: Dyspnea; No Cough, No Pleuritic Chest Pain, No Other Cardiovascular: No: Chest Pain, Palpitations, Orthopnea, Paroxysmal Noc. Dyspnea, Edema, Lt Headedness, Other Objective-Cardiology Exam Last Set of Vital Signs Vital Signs 12/16/18 12/19/18 12/19/18 12/19/18 08:15 05:40 10:52 10:54 Temp 36.3 Pulse 66 Resp 18 B/P (MAP) 147/74 (98) Pulse Ox 96 O2 Delivery Room Air O2 Flow Rate 4.00 FiO2 36 Capillary Refill : I&O Intake and Output 12/19/18 00:00 Intake Total 2490 ml Output Total 2450 ml Balance 40 ml Intake Oral 2490 ml Output Urine Total 2450 ml # Voids 1 General: Alert, Oriented X3, Cooperative, No Acute Distress HEENT: Atraumatic, PERRLA Neck: Supple, No JVD, No Thyromegaly Lungs: Clear to Auscultation (distant sounds) Heart: Regular Rate, Normal S1, Normal S2, No Murmurs Abdomen: Normal Bowel Sounds, Soft, No Tenderness, No Hepatosplenomegaly, No Masses Extremities: No Clubbing, Normal Pulses Skin: No Rashes, No Breakdown, No Significant Lesion Neuro: Normal Speech, Normal Tone Psych/Mental Status: Mental Status NL, Mood NL Results Lab Laboratory Tests 12/18/18 16:41 12/19/18 06:25 A/P-Cardiology Admission Diagnosis Acute exacerbation of COPD Acute respiratory failure Hypertension Acute atrial fibrillation Assessment/Plan COPD, acute exacerbation, improving, maintained on prednisone at this time and managed by primary care team Hypertension, difficult to control while on prednisone, patient is receiving multiple medication including Toprol 50 mg daily, Cardizem 240 mg daily, losartan 100 mg daily, hydrochlorothiazide 25 mg daily and Lasix, continue on current medication monitor blood pressure Hyperkalemia, potassium was decreased to 20 mEq daily. Continue to monitor Pneumonia, improving, managed by primary care team Cellulitis, managed by primary care team Acute on chronic renal failure, continue to monitor renal function New-onset atrial fibrillation, back to sinus rhythm, change Cardizem to long- acting and monitor tolerance and response Morbid obesity, obesity hypoventilation syndrome and acute respiratory failure. Managed by Dr. Contreras Peripheral edema, chronic, echocardiogram showed normal left ventricular size and function with ejection fraction 55-60 percent, left atrial dilatation measuring 6.1 cm, mild mitral regurgitation, pulmonary hypertension with PA pressure 40-50 mmHg. Continue to monitor Coronary artery disease, history of cardiac catheterization done in 2014 showing coronary ectasia with slow flow, no significant obstructive disease. Conservative management Hyperlipidemia, maintained on simvastatin, I will change to Lipitor secondary to interaction with Amiodarone. Diabetes mellitus, followed and managed by primary care physician Clinical Quality Measures DVT/VTE Risk/Contraindication: Risk Factor Score Per Nursin RFS Level Per Nursing on Admit: 4+=Very High AMI SANTACRUZ MD Dec 19, 2018 12:28
--- NOTE | 2018-12-19 12:37 | PM&R Progress Note ---
Subjective HPI/CC On Admission Date Seen by Provider: Dec 19, 2018 Time Seen by Provider: 11:30 CC: Respiratory insufficiency with weakness 12/10/18 admit CC/HPI: Chief complaint: Respiratory insufficiency with hypercapnia HPI: This is a 63yoWM who presented with respiratory insufficiency and hypercapnia due altered mental status requiring BiPAP while in inpatient rehab but needed close monitoring from cardiology and pulmonology standpoint after he was moved down to rehab yesterday. He has never had a sleep study and doesn't wear oxygen at night so he definitely has obesity hypoventilation syndrome from ABG findings consistent with approval for vent mask at discharge and will aggressively treat him and go back to inpatient rehab when able. 12/13/18 DC summary from med-surg: Hospital course: Patient had a brief hospital course after he was moved from inpatient rehabilitation after 1 day due to respiratory insufficiency and hypercapnia. Patient was placed in the ICU maintained on BiPAP with close monitoring from cardiology and pulmonology. Dr. Miner continue to monitor lymphedema. Patient dramatically improved with the use of BiPAP and Vapotherm and then nasal cannula and did very well at night on the BiPAP. Overall he did well was able to go back to inpatient rehabilitation for final stabilization of his medical problems along with his breathing machinery in preparation of discharge. HPI: Patient is ready to admit to rehab today. Patient now sleeps with biPAP and wears O2 NC during the day. Eating and drinking well and BM+. Patient is very weak and dyspneic on exertion so we will need to work on breathing with activity and have biPAP and O2 in place for DC once he is ready. Subjective/Events-last exam Discharge planned on Thursday. Resp status is improved overall Oxygen requirements are now at 4 L most of the time Discontinued antibiotics for cellulitis and pneumonia and sepsis. Dr. Gutiérrez is managing elevated blood pressure which is chronic and I conferred with him Edema is still being managed with Amari wraps which is improving Overall feels much better and feels like he is improving immensely. Conferred with RN Reviewed therapy notes Checked meds and labs Review of Systems Pulmonary: Dyspnea Objective Exam Vital Signs Vital Signs Date Time Temp Pulse Resp B/P (MAP) Pulse Ox O2 Delivery O2 Flow Rate FiO2 12/19/18 14:45 95 Room Air 12/19/18 10:54 4.00 12/19/18 05:40 36.3 66 18 147/74 (98) 12/16/18 08:15 36 Capillary Refill : General Appearance: No Apparent Distress, WD/WN, Chronically ill, Obese HEENT: PERRL/EOMI, Normal ENT Inspection, Pharynx Normal, Moist Mucous Membrane s Neck: Full Range of Motion, Normal Inspection, Non Tender, Supple Respiratory: Chest Non Tender, Lungs Clear, Normal Breath Sounds, No Respiratory Distress Cardiovascular: Regular Rate, Rhythm, No Gallop, No Murmur, Normal Peripheral Pulses, Other (Bilateral lower extremity edema) Gastrointestinal: Normal Bowel Sounds, No Organomegaly, No Pulsatile Mass, Non Tender, Soft Back: Normal Inspection, No CVA Tenderness, No Vertebral Tenderness Extremity: Normal Capillary Refill, Normal Inspection, Normal Range of Motion, Non Tender, No Calf Tenderness, Pedal Edema Neurologic/Psychiatric: Alert, Oriented x3, No Motor/Sensory Deficits, Normal M ood/Affect, memorial mason II-XII Norm as Tested, Motor Weakness (generalized weakness lower legs) Skin: Normal Color, Warm/Dry Lymphatic: No Adenopathy Results/Procedures Lab Laboratory Tests 12/19/18 06:25 Patient resulted labs reviewed. FIM Transfers Therapy Code Descriptions/Definitions Functional [place] Measure: 0=Not Assessed/NA 4=Minimal Assistance 1=Total Assistance 5=Supervision or Setup 2=Maximal Assistance 6=Modified [place] 3=Moderate Assistance 7=Complete [place] Therapy Quality Codes: 6 Independent with activity with or without an assistive device 5 Patient requires set up or clean up by helper. Patient completes activity by themselves 4 Supervision or touching assist (CGA). [place] provide cues , steadying assist 3 The helper provides less than half the effort to complete the activity 2 The helper provides more than half the effort to complete the activity 1 Dependent. The helper does all the effort to complete an activity 7 Patient refused to complete or attempt activity 9 The patient did not perform the activity before the current illness or injury 88 Not attempted due to Medical conditions or safety concerns Transfers (B, C, W/C) (FIM): 6 Scootin Rollin Roll Left to Right (QC): 7 Supine to/from Sit: 0 Sit to/from Stand: 5 Sit to Lying (QC): 7 Sit to Stand (QC): 6 Chair/Nos-yq-Ednho Xfer(QC): 6 Car Transfer (QC): 4 Gait Training Does the Patient Walk?: Yes Gait (FIM): 5 Distance: 150 x2 Walk 10 feet (QC): 6 Walk 50 ft with 2 Turns(QC): 6 Walk 150 ft (QC): 4 Walking 10ft/uneven surface-QC: 4 Gait Level of Assist: 5 Gait Persons Needed: 1 Gait Assistive Device: FWW Wheelchair Training Does the Pt Use a Wheelchair?: No Stair Training Stair Training: Handrails/: 2 handrails Stairs (FIM): 1 #of Steps: 12 1 Step (curb) (QC): 4 4 Steps (QC): 5 12 Steps (QC): 5 Stairs: Pattern: Step to Level of Assist: 5 Mental Status/Objective Comprehension: 7 Expression: 7 Social Interaction: 7 Problem Solvin Memory: 7 ADL-Treatment Feedin Eating (QC): 6 Groomin Oral Hygiene (QC): 6 Bathin Shower/Bathe Self (QC): 6 Upper Extremity Dressin Upper Body Dressing (QC): 6 Lower Extremity Dressin Lower Body Dressing (QC): 6 On/Off Footwear (QC): 5 (sock aid) Toiletin (Pt completes urination in urinal at recliner) Toilet Transfer (QC): 4 Shower: 5 Assessment/Plan Assessment and Plan Assess & Plan/Chief Complaint Assessment: OHS now doing very well with biPAP and NC O2 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 CRI HTN New onset AF DM Lymphedema Plan: Wrap legs Appreciate Cardiology, Pulmonology, Wound care Lymphedema treatment Lasix BiPAP, O2 DC in future once DME set up and patient feels confident and that should be Thursday (1) Myopathy Status: Acute (2) Respiratory insufficiency (3) Dehydration Status: Acute (4) Hyperkalemia Status: Acute (5) Acute renal failure Status: Acute (6) Back pain Status: Acute (7) Diabetes Status: Chronic (8) Hypercapnia Status: Acute (9) Hypoxia Status: Acute (10) Abdominal pain Status: Acute (11) Chest pain Status: Acute (12) Atrial fibrillation with rapid ventricular response Status: Acute (13) Cellulitis of left lower extremity Status: Acute (14) Cellulitis of left lower extremity Status: Chronic (15) Diabetes mellitus with hyperglycemia Status: Chronic (16) Lymphedema (17) Obesity hypoventilation syndrome (18) Chronic renal failure Status: Chronic YARIEL BUI DO Dec 19, 2018 12:37
--- NOTE | 2018-12-19 12:55 | Diagnostic Imaging Report ---
Portable erect AP chest at 746 hours. INDICATION: Shortness of breath. FINDINGS: When compared to the prior exam of 12/18/2018, there does not appear to have been any significant change. Both lung bases remain partially obscured by pneumonia/atelectasis and fluid, particularly the right lung base. The upper lungs are relatively clear. The heart is enlarged and the central pulmonary vascularity remains prominent. I do suspect that there is an element of pulmonary congestion present as well. The mediastinum is not widened. Osseous structures are intact. IMPRESSION: Stable chest. There has been no adverse change since the prior exam. A followup study would be recommended for continued evaluation. Dictated by: Dictated on workstation # [id number]
[2018-12-19] MEDS: RT-ALBUTEROL/IPRATROPIUM 3 ML (DUONEB) VIAL INH SCH ×3 (14:43→22:49)
--- NOTE | 2018-12-19 16:31 | NUR ---
FSBS 425. Dr. Villagomez notified with orders to give top dose of SS... [address]. Villagomez, no need to call with high results. "Just give top dose please and pass along".
[2018-12-19 17:13] VITALS: BP 156/73
--- NOTE | 2018-12-19 19:06 | NUR ---
bedside report received from BECKA harding, assume care of pt
[2018-12-19 20:55] VITALS: BP 182/84
--- NOTE | 2018-12-19 21:00 | NUR ---
fsbs 381 NovoLog 12 units scheduled Levemir 20 units given, pt up in chair, up ad rhonda with ladonna
--- NOTE | 2018-12-19 22:42 | NUR ---
ambulated all round ARU with 02 & walker, tolerated well
[2018-12-20] MEDS: RT-ALBUTEROL/IPRATROPIUM 3 ML (DUONEB) VIAL INH SCH ×3 (02:57→10:37)
[2018-12-20 05:37] VITALS: BP 126/68
[2018-12-20] MEDS: inSUlin ASPART (NovoLOG) 1 UNIT/0.01 ML (CHARGE PER UNIT) SQ SCH ×2 (06:16→12:16)
[2018-12-20] MEDS: KCL 20 MEQ TAB (K-DUR) PO SCH (06:16)
[2018-12-20] MEDS: predniSONE 20 MG TAB PO SCH (06:16)
[2018-12-20] MEDS: MULTIVIT W/MINERALS TAB (THERAGRAN M) PO SCH (06:16)
[2018-12-20] MEDS: ETODOLAC 300 MG (LODINE) CAP PO SCH (06:16)
[2018-12-20 06:26] LABS: BASOPHILS % (AUTO) 0 % (0-10); EOSINOPHILS # (AUTO) 0.3 10^3/uL (0.0-0.3); EOSINOPHILS % (AUTO) 2 % (0-10); HEMATOCRIT 32 % (40-54); HEMOGLOBIN 10.3 G/DL (13.3-17.7); LYMPHOCYTES # (AUTO) 1.5 X 10^3 (1.0-4.0); LYMPHOCYTES % (AUTO) 13 % (12-44); MEAN CORPUSCULAR HEMOGLOBIN 30 PG (25-34); MEAN CORPUSCULAR HGB CONC 32 G/DL (32-36); MEAN CORPUSCULAR VOLUME 91 FL (80-99); MEAN PLATELET VOLUME 9.8 FL (7.4-10.4); MONOCYTES # (AUTO) 1.3 X 10^3 (0.0-1.0); MONOCYTES % (AUTO) 11 % (0-12); NEUTROPHILS # (AUTO) 9.1 X 10^3 (1.8-7.8); NEUTROPHILS % (AUTO) 75 % (42-75); PLATELET COUNT 330 10^3/uL (130-400); RED CELL DISTRIBUTION WIDTH 14.2 % (10.0-14.5); WHITE BLOOD COUNT 12.2 10^3/uL (4.3-11.0)
[2018-12-20 06:48] LABS: ALBUMIN 3.8 GM/DL (3.2-4.5); BILIRUBIN,TOTAL 0.6 MG/DL (0.1-1.0); CALCIUM 9.4 MG/DL (8.5-10.1); CREATININE SERUM 1.79 MG/DL (0.60-1.30); MAGNESIUM 2.1 MG/DL (1.6-2.4); POTASSIUM 4.1 MMOL/L (3.6-5.0); TOTAL PROTEIN 7.2 GM/DL (6.4-8.2)
--- NOTE | 2018-12-20 07:06 | NUR ---
bedside report given to JOHNNY HORN
[2018-12-20] MEDS ORDERED: PRD20T PO (08:23)
[2018-12-20] MEDS ORDERED: IPRA3AMP31 INH (08:23)
[2018-12-20] MEDS ORDERED: POTA-51 PO (08:23)
[2018-12-20] MEDS ORDERED: ATOR10TA66 PO (08:23)
[2018-12-20] MEDS ORDERED: AMIO200T4 PO (08:23)
[2018-12-20] MEDS ORDERED: LOSA100T57 PO (08:23)
[2018-12-20] MEDS ORDERED: DILT240C97 PO (08:23)
[2018-12-20] MEDS ORDERED: APIX5TAB PO (08:23)
--- NOTE | 2018-12-20 08:26 | Discharge Summary ---
Discharge Summary Reconcile Patient Problems Problems Reviewed?: Yes Instructions for Patient [facility], Assessment/Instructions [facility] in [address] Contreras and Dr Gutiérrez in 2 weeks Physician to follow Patient: [facility] Discharge Diet for Home: ADA Diet, Cardiac Diet Hospital Course Date of Admission: Dec 13, 2018 at 10:20 Admission Diagnosis : Family Physician/Provider: Neymar Degroot MD Date of Discharge: 12/20/18 Discharge Diagnosis: Respiratory insufficiency, COPD, AF Labs and Pending Lab Test: Laboratory Tests 12/19/18 10:33: Glucometer 366H 12/19/18 16:10: Glucometer 425*H 12/19/18 20:52: Glucometer 381H 12/20/18 05:52: Glucometer 261H 12/20/18 05:53: White Blood Count 12.2H, Red Blood Count 3.48L, Hemoglobin 10.3L, Hematocrit 32L , Mean Corpuscular Volume 91, Mean Corpuscular Hemoglobin 30, Mean Corpuscular Hemoglobin Concent 32, Red Cell Distribution Width 14.2, Platelet Count 330, Mean Platelet Volume 9.8, Neutrophils (%) (Auto) 75, Lymphocytes (%) (Auto) 13, Monocytes (%) (Auto) 11, Eosinophils (%) (Auto) 2, Basophils (%) (Auto) 0, Neutrophils # (Auto) 9.1H, Lymphocytes # (Auto) 1.5, Monocytes # (Auto) 1.3H, Eosinophils # (Auto) 0.3, Basophils # (Auto) 0.0, Sodium Level 138, Potassium Level 4.1, Chloride Level 99, Carbon Dioxide Level 30, Anion Gap 9, Blood Urea Nitrogen 41H, Creatinine 1.79H, Estimat Glomerular Filtration Rate 39, BUN/Creatinine Ratio 23, Glucose Level 270H, Calcium Level 9.4, Corrected Calcium 9.6, Magnesium Level 2.1, Total Bilirubin 0.6, Aspartate Amino Transf (AST/SGOT) 13, Alanine Aminotransferase (ALT/SGPT) 27, Alkaline Phosphatase 60, Total Protein 7.2, Albumin 3.8 Home Meds Active Potassium Chloride 20 Meq Tablet.er 20 Meq PO DAILY Prednisone 20 Mg Tab 40 Mg PO DAILY@0700 Losartan Potassium 100 Mg Tablet 100 Mg PO DAILY Diltiazem 24Hr Cd (Diltiazem HCl) 240 Mg Cap.er.24h 240 Mg PO DAILY Atorvastatin Calcium 10 Mg Tablet 10 Mg PO HS Amiodarone HCl 200 Mg Tablet 200 Mg PO BID Eliquis (Apixaban) 5 Mg Tablet 5 Mg PO BID Iprat-Albut 0.5-3(2.5) mg/3 ml (Ipratropium/Albuterol Sulfate) 3 Ml Ampul.neb 3 Ml INH RTQ4HR Reported Atorvastatin Calcium 80 Mg Tablet 80 Mg PO DAILY Aspirin EC (Aspirin) 81 Mg Tablet.dr 81 Mg PO DAILY Invokana (Canagliflozin) 100 Mg Tablet 100 Mg PO DAILY Diclofenac Sodium 75 Mg Tablet.dr 75 Mg PO BID Metformin HCl 1,000 Mg Tablet 1,000 Mg PO BID Toprol Xl (Metoprolol Succinate) 50 Mg Tab.er.24h 50 Mg PO DAILY Fish Oil 1,000 mg Softgel ([place]-3/Dha/Epa/Fish Oil) 1 Each Capsule 2,000 Mg PO DAILY [Vitamin Pack] 1 Packet PO DAILY Levemir Flextouch (Insulin Detemir) 100 Unit/1 Ml Insuln.pen 80 Units SQ BID Victoza 3-Jason (Liraglutide) 0.6 Mg/0.1 Ml Pen.injctr 1.8 Mg SQ HS Novolog Flexpen (Insulin Aspart) 300 Units/3 Ml Solution 60 Units SQ 1200 Patient Allergies: Coded Allergies: NKANo Known Allergies (Verified Allergy, Unknown, 05/15/05) Height (Feet): 5 Height (Inches): 11 Weight (Pounds): 260 Weight (Ounces): 0.0 Home Health Need/Face to Face Date of Face to Face: Dec 20, 2018 Clinical Findings: Generalized weakness and fatigue, Muscle weakness, Shortness of breath, Unsteady gait I have seen Pt [id number]-[id number]: Yes Discharged To: Home Diagnosis/Conditions: Obesity Hypovent syndrome LUIGI copd AF Patient is Homebound due to: Annika fall risk due to instabilty, Muscle weakness, Shortness of breath/distress Homebound Status Due to the above stated illness, injury or surgical procedure (medical condition or diagnosis) and associated clinical findings, the patient is homebound because of his/her inability to leave home except with aid of a supportive device and/or person AND leaving the home requires a considerable and taxing effort or is medically contraindicated. Pt req the following assistanc: Walker Home Health Nursing Orders Home Health Services Order: Nursing Services, Route Salesperson-Evaluate & Treat, Physical Therapy-Evaluate & Treat Certify Stmt I certify that this patient is under my care and that I, a nurse practitioner or a physician; a refinery operator assistant working with me, had a face to face encounter that - meets the physician face to face encounter requirements with this patient as dated. YARIEL BUI DO Dec 20, 2018 08:26
--- NOTE | 2018-12-20 08:27 | Discharge Summary ---
Diagnosis/Chief Complaint Date of Admission Dec 13, 2018 at 10:20 Date of Discharge Discharge Date: Dec 20, 2018 Discharge Diagnosis Assessment: OHS now doing very well with biPAP and NC O2 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 CRI HTN New onset AF DM Lymphedema Plan: Wrap legs Appreciate Cardiology, Pulmonology, Wound care Lymphedema treatment Lasix BiPAP, O2 DC in future once DME set up and patient feels confident and that should be Thursday (1) Myopathy Status: Acute (2) Respiratory insufficiency (3) Dehydration Status: Acute (4) Hyperkalemia Status: Acute (5) Acute renal failure Status: Acute (6) Back pain Status: Acute (7) Diabetes Status: Chronic (8) Hypercapnia Status: Acute (9) Hypoxia Status: Acute (10) Abdominal pain Status: Acute (11) Chest pain Status: Acute (12) Atrial fibrillation with rapid ventricular response Status: Acute (13) Cellulitis of left lower extremity Status: Acute (14) Cellulitis of left lower extremity Status: Chronic (15) Diabetes mellitus with hyperglycemia Status: Chronic (16) Lymphedema (17) Obesity hypoventilation syndrome (18) Chronic renal failure Status: Chronic Discharge Summary Discharge Physical Examination Allergies: Coded Allergies: NKANo Known Allergies (Verified Allergy, Unknown, 05/15/05) Vitals & I&Os Vital Signs Date Time Temp Pulse Resp B/P (MAP) Pulse Ox O2 Delivery O2 Flow Rate FiO2 12/20/18 14:17 36.2 74 18 126/68 96 Nasal Cannula 4.00 12/16/18 08:15 36 General Appearance: Alert, Oriented X3, Cooperative Respiratory: Clear to Auscultation Cardiovascular: Regular Rate Neuro: Normal Gait, Normal Speech, Strength at 5/5 X4 Ext Psych/Mental Status: Mental Status NL, Mood NL Hospital Course Was the Problem List Reviewed?: Yes Pt had an uneventful hospital course for 7 days in inpatient rehab. Dr. Contreras was consulted. placed pt on diuresis regimen due to the acute on chronic respiratory failure and due to the hypercapnia CO2 narcosis episode. He did meet criteria for vent 2 mask that was arranged along with 4 liters of oxygen continuously along with nebulizer treatments and the addition of multiple cardiac meds at time of DC. He was found to be agreeable for going home able to participate in therapy, and home health will be initiated to help with new initiation of oxygen and vent to mask. Labs (last 24 hrs) Laboratory Tests 12/13/18 17:02: Glucometer 248H 12/13/18 20:08: Glucometer 293H 12/14/18 05:39: Glucometer 185H 12/14/18 11:05: Glucometer 235H 12/14/18 16:54: Glucometer 177H 12/14/18 22:03: Glucometer 248H 12/15/18 06:30: Glucometer 189H 12/15/18 08:53: Sodium Level 142, Potassium Level 4.5, Chloride Level 105, Carbon Dioxide Level 29, Anion Gap 8, Blood Urea Nitrogen 26H, Creatinine 1.59H, Estimat Glomerular Filtration Rate 44, BUN/Creatinine Ratio 16, Glucose Level 279H, Calcium Level 9.0 12/15/18 10:57: Glucometer 233H 12/15/18 15:24: Glucometer 204H 12/15/18 20:23: Glucometer 206H 12/16/18 05:56: Glucometer 173H 12/16/18 10:57: Glucometer 298H 12/16/18 16:04: Glucometer 223H 12/16/18 20:21: Glucometer 190H 12/17/18 05:10: Glucometer 152H 12/17/18 05:12: White Blood Count 10.4, Red Blood Count 3.39L, Hemoglobin 9.9L, Hematocrit 31L, Mean Corpuscular Volume 92, Mean Corpuscular Hemoglobin 29, Mean Corpuscular Hem oglobin Concent 32, Red Cell Distribution Width 14.2, Platelet Count 308, Mean Platelet Volume 9.3, Sodium Level 140, Potassium Level 4.3, Chloride Level 102, Carbon Dioxide Level 27, Anion Gap 11, Blood Urea Nitrogen 22H, Creatinine 1.41H , Estimat Glomerular Filtration Rate 51, BUN/Creatinine Ratio 16, Glucose Level 147H, Calcium Level 9.2, Corrected Calcium 9.8, Total Bilirubin 0.6, Aspartate Amino Transf (AST/SGOT) 15, Alanine Aminotransferase (ALT/SGPT) 27, Alkaline Phosphatase 50, Total Protein 6.6, Albumin 3.3 12/17/18 11:54: Glucometer 218H 12/17/18 17:06: Glucometer 223H 12/17/18 21:24: Glucometer 331H 12/18/18 06:05: Glucometer 271H 12/18/18 08:10: White Blood Count 9.7, Red Blood Count 3.35L, Hemoglobin 9.9L, Hematocrit 31L, Mean Corpuscular Volume 91, Mean Corpuscular Hemoglobin 30, Mean Corpuscular Hemoglobin Concent 33, Red Cell Distribution Width 13.8, Platelet Count 289, Mean Platelet Volume 9.5, Neutrophils (%) (Auto) 93H, Lymphocytes (%) (Auto) 4L, Monocytes (%) (Auto) 3, Eosinophils (%) (Auto) 0, Basophils (%) (Auto) 0, Neutrophils # (Auto) 9.1H, Lymphocytes # (Auto) 0.4L, Monocytes # (Auto) 0.2, Eosinophils # (Auto) 0.0, Basophils # (Auto) 0.0, Neutrophils % (Manual) 93, Lymphocytes % (Manual) 5, Band Neutrophils 2, Blood Morphology Comment NORMAL, Sodium Level 135, Potassium Level 5.1H, Chloride Level 98, Carbon Dioxide Level 26, Anion Gap 11, Blood Urea Nitrogen 30H, Creatinine 1.67H, Estimat Glomerular Filtration Rate 42, BUN/Creatinine Ratio 18, Glucose Level 375H, Calcium Level 8.9, Corrected Calcium 9.3, Phosphorus Level 4.7, Magnesium Level 1.9, Total Bilirubin 0.5, Aspartate Amino Transf (AST/SGOT) 14, Alanine Aminotransferase (ALT/SGPT) 25, Alkaline Phosphatase 64, B-Type Natriuretic Peptide 406.9H, Total Protein 7.0, Albumin 3.5 12/18/18 11:05: Glucometer 377H 12/18/18 15:53: Glucometer 389H 12/18/18 16:41: White Blood Count 12.2H, Red Blood Count 3.41L, Hemoglobin 10.3L, Hematocrit 31L , Mean Corpuscular Volume 90, Mean Corpuscular Hemoglobin 30, Mean Corpuscular Hemoglobin Concent 34, Red Cell Distribution Width 14.1, Platelet Count 331, Mean Platelet Volume 8.9, Neutrophils (%) (Auto) 91H, Lymphocytes (%) (Auto) 4L, Monocytes (%) (Auto) 5, Eosinophils (%) (Auto) 0, Basophils (%) (Auto) 0, Neutrophils # (Auto) 11.0H, Lymphocytes # (Auto) 0.5L, Monocytes # (Auto) 0.6, Eosinophils # (Auto) 0.0, Basophils # (Auto) 0.0, Sodium Level 135, Potassium Level 5.0, Chloride Level 97L, Carbon Dioxide Level 28, Anion Gap 10, Blood Urea Nitrogen 34H, Creatinine 1.79H, Estimat Glomerular Filtration Rate 39, BUN/Creatinine Ratio 19, Glucose Level 369H, Calcium Level 9.3, Phosphorus Level 3.8, Magnesium Level 2.1, B-Type Natriuretic Peptide 380.4H 12/18/18 20:32: Glucometer 402*H 12/19/18 05:27: Glucometer 332H 12/19/18 06:25: White Blood Count 10.8, Red Blood Count 3.37L, Hemoglobin 10.0L, Hematocrit 31L, Mean Corpuscular Volume 91, Mean Corpuscular Hemoglobin 30, Mean Corpuscular Hemoglobin Concent 33, Red Cell Distribution Width 14.4, Platelet Count 329, Mean Platelet Volume 9.0, Neutrophils (%) (Auto) 79H, Lymphocytes (%) (Auto) 10L , Monocytes (%) (Auto) 10, Eosinophils (%) (Auto) 1, Basophils (%) (Auto) 0, Neutrophils # (Auto) 8.5H, Lymphocytes # (Auto) 1.1, Monocytes # (Auto) 1.1H, Eosinophils # (Auto) 0.1, Basophils # (Auto) 0.0, Sodium Level 139, Potassium Level 4.6, Chloride Level 100, Carbon Dioxide Level 27, Anion Gap 12, Blood Urea Nitrogen 41H, Creatinine 1.83H, Estimat Glomerular Filtration Rate 38, BUN/Creatinine Ratio 22, Glucose Level 324H, Calcium Level 9.3, Phosphorus Level 4.2, Magnesium Level 2.1 12/19/18 10:33: Glucometer 366H 12/19/18 16:10: Glucometer 425*H 12/19/18 20:52: Glucometer 381H 12/20/18 05:52: Glucometer 261H 12/20/18 05:53: White Blood Count 12.2H, Red Blood Count 3.48L, Hemoglobin 10.3L, Hematocrit 32L , Mean Corpuscular Volume 91, Mean Corpuscular Hemoglobin 30, Mean Corpuscular Hemoglobin Concent 32, Red Cell Distribution Width 14.2, Platelet Count 330, Mean Platelet Volume 9.8, Neutrophils (%) (Auto) 75, Lymphocytes (%) (Auto) 13, Monocytes (%) (Auto) 11, Eosinophils (%) (Auto) 2, Basophils (%) (Auto) 0, Neutrophils # (Auto) 9.1H, Lymphocytes # (Auto) 1.5, Monocytes # (Auto) 1.3H, Eosinophils # (Auto) 0.3, Basophils # (Auto) 0.0, Sodium Level 138, Potassium Level 4.1, Chloride Level 99, Carbon Dioxide Level 30, Anion Gap 9, Blood Urea Nitrogen 41H, Creatinine 1.79H, Estimat Glomerular Filtration Rate 39, BUN/Creatinine Ratio 23, Glucose Level 270H, Calcium Level 9.4, Corrected Calcium 9.6, Magnesium Level 2.1, Total Bilirubin 0.6, Aspartate Amino Transf (AST/SGOT) 13, Alanine Aminotransferase (ALT/SGPT) 27, Alkaline Phosphatase 60, Total Protein 7.2, Albumin 3.8 12/20/18 11:21: Glucometer 325H Pending Labs Laboratory Tests 12/13/18 17:02: Glucometer 248 12/13/18 20:08: Glucometer 293 12/14/18 05:39: Glucometer 185 12/14/18 11:05: Glucometer 235 12/14/18 16:54: Glucometer 177 12/14/18 22:03: Glucometer 248 12/15/18 06:30: Glucometer 189 12/15/18 08:53: Sodium Level 142, Potassium Level 4.5, Chloride Level 105, Carbon Dioxide Level 29, Anion Gap 8, Blood Urea Nitrogen 26, Creatinine 1.59, Estimat Glomerular Filtration Rate 44, BUN/Creatinine Ratio 16, Glucose Level 279, Calcium Level 9.0 12/15/18 10:57: Glucometer 233 12/15/18 15:24: Glucometer 204 12/15/18 20:23: Glucometer 206 12/16/18 05:56: Glucometer 173 12/16/18 10:57: Glucometer 298 12/16/18 16:04: Glucometer 223 12/16/18 20:21: Glucometer 190 12/17/18 05:10: Glucometer 152 12/17/18 05:12: White Blood Count 10.4, Red Blood Count 3.39, Hemoglobin 9.9, Hematocrit 31, Mean Corpuscular Volume 92, Mean Corpuscular Hemoglobin 29, Mean Corpuscular Hemoglobin Concent 32, Red Cell Distribution Width 14.2, Platelet Count 308, Mean Platelet Volume 9.3, Sodium Level 140, Potassium Level 4.3, Chloride Level 102, Carbon Dioxide Level 27, Anion Gap 11, Blood Urea Nitrogen 22, Creatinine 1.41, Estimat Glomerular Filtration Rate 51, BUN/Creatinine Ratio 16, Glucose Level 147, Calcium Level 9.2, Corrected Calcium 9.8, Total Bilirubin 0.6, Asp artate Amino Transf (AST/SGOT) 15, Alanine Aminotransferase (ALT/SGPT) 27, Alkaline Phosphatase 50, Total Protein 6.6, Albumin 3.3 12/17/18 11:54: Glucometer 218 12/17/18 17:06: Glucometer 223 12/17/18 21:24: Glucometer 331 12/18/18 06:05: Glucometer 271 12/18/18 08:10: White Blood Count 9.7, Red Blood Count 3.35, Hemoglobin 9.9, Hematocrit 31, Mean Corpuscular Volume 91, Mean Corpuscular Hemoglobin 30, Mean Corpuscular Hemoglobin Concent 33, Red Cell Distribution Width 13.8, Platelet Count 289, Mean Platelet Volume 9.5, Neutrophils (%) (Auto) 93, Lymphocytes (%) (Auto) 4, Monocytes (%) (Auto) 3, Eosinophils (%) (Auto) 0, Basophils (%) (Auto) 0, Neutrophils # (Auto) 9.1, Lymphocytes # (Auto) 0.4, Monocytes # (Auto) 0.2, Eosinophils # (Auto) 0.0, Basophils # (Auto) 0.0, Neutrophils % (Manual) 93, Lymphocytes % (Manual) 5, Band Neutrophils 2, Blood Morphology Comment NORMAL, Sodium Level 135, Potassium Level 5.1, Chloride Level 98, Carbon Dioxide Level 26, Anion Gap 11, Blood Urea Nitrogen 30, Creatinine 1.67, Estimat Glomerular Filtration Rate 42, BUN/Creatinine Ratio 18, Glucose Level 375, Calcium Level 8.9, Corrected Calcium 9.3, Phosphorus Level 4.7, Magnesium Level 1.9, Total Bilirubin 0.5, Aspartate Amino Transf (AST/SGOT) 14, Alanine Aminotransferase (ALT/SGPT) 25, Alkaline Phosphatase 64, B-Type Natriuretic Peptide 406.9, Total Protein 7.0, Albumin 3.5 12/18/18 11:05: Glucometer 377 12/18/18 15:53: Glucometer 389 12/18/18 16:41: White Blood Count 12.2, Red Blood Count 3.41, Hemoglobin 10.3, Hematocrit 31, Mean Corpuscular Volume 90, Mean Corpuscular Hemoglobin 30, Mean Corpuscular Hemoglobin Concent 34, Red Cell Distribution Width 14.1, Platelet Count 331, Mean Platelet Volume 8.9, Neutrophils (%) (Auto) 91, Lymphocytes (%) (Auto) 4, Monocytes (%) (Auto) 5, Eosinophils (%) (Auto) 0, Basophils (%) (Auto) 0, Neutrophils # (Auto) 11.0, Lymphocytes # (Auto) 0.5, Monocytes # (Auto) 0.6, Eosinophils # (Auto) 0.0, Basophils # (Auto) 0.0, Sodium Level 135, Potassium Level 5.0, Chloride Level 97, Carbon Dioxide Level 28, Anion Gap 10, Blood Urea Nitrogen 34, Creatinine 1.79, Estimat Glomerular Filtration Rate 39, BUN/Creatinine Ratio 19, Glucose Level 369, Calcium Level 9.3, Phosphorus Level 3.8, Magnesium Level 2.1, B-Type Natriuretic Peptide 380.4 12/18/18 20:32: Glucometer 402 12/19/18 05:27: Glucometer 332 12/19/18 06:25: White Blood Count 10.8, Red Blood Count 3.37, Hemoglobin 10.0, Hematocrit 31, Mean Corpuscular Volume 91, Mean Corpuscular Hemoglobin 30, Mean Corpuscular Hemoglobin Concent 33, Red Cell Distribution Width 14.4, Platelet Count 329, Mean Platelet Volume 9.0, Neutrophils (%) (Auto) 79, Lymphocytes (%) (Auto) 10, Monocytes (%) (Auto) 10, Eosinophils (%) (Auto) 1, Basophils (%) (Auto) 0, Neutrophils # (Auto) 8.5, Lymphocytes # (Auto) 1.1, Monocytes # (Auto) 1.1, Eosinophils # (Auto) 0.1, Basophils # (Auto) 0.0, Sodium Level 139, Potassium Level 4.6, Chloride Level 100, Carbon Dioxide Level 27, Anion Gap 12, Blood Urea Nitrogen 41, Creatinine 1.83, Estimat Glomerular Filtration Rate 38, BUN/Creatinine Ratio 22, Glucose Level 324, Calcium Level 9.3, Phosphorus Level 4.2, Magnesium Level 2.1 12/19/18 10:33: Glucometer 366 12/19/18 16:10: Glucometer 425 12/19/18 20:52: Glucometer 381 12/20/18 05:52: Glucometer 261 12/20/18 05:53: White Blood Count 12.2, Red Blood Count 3.48, Hemoglobin 10.3, Hematocrit 32, Mean Corpuscular Volume 91, Mean Corpuscular Hemoglobin 30, Mean Corpuscular Hemoglobin Concent 32, Red Cell Distribution Width 14.2, Platelet Count 330, Mean Platelet Volume 9.8, Neutrophils (%) (Auto) 75, Lymphocytes (%) (Auto) 13, Monocytes (%) (Auto) 11, Eosinophils (%) (Auto) 2, Basophils (%) (Auto) 0, Neutrophils # (Auto) 9.1, Lymphocytes # (Auto) 1.5, Monocytes # (Auto) 1.3, Eosinophils # (Auto) 0.3, Basophils # (Auto) 0.0, Sodium Level 138, Potassium Level 4.1, Chloride Level 99, Carbon Dioxide Level 30, Anion Gap 9, Blood Urea Nitrogen 41, Creatinine 1.79, Estimat Glomerular Filtration Rate 39, BUN/Creatinine Ratio 23, Glucose Level 270, Calcium Level 9.4, Corrected Calcium 9.6, Magnesium Level 2.1, Total Bilirubin 0.6, Aspartate Amino Transf (AST/SGOT) 13, Alanine Aminotransferase (ALT/SGPT) 27, Alkaline Phosphatase 60, Total Protein 7.2, Albumin 3.8 12/20/18 11:21: Glucometer 325 Discharge Home Medications: Active Scripts Active Potassium Chloride 20 Meq Tablet.er 20 Meq PO DAILY Prednisone 20 Mg Tab 40 Mg PO DAILY@0700 Losartan Potassium 100 Mg Tablet 100 Mg PO DAILY Diltiazem 24Hr Cd (Diltiazem HCl) 240 Mg Cap.er.24h 240 Mg PO DAILY Atorvastatin Calcium 10 Mg Tablet 10 Mg PO HS Amiodarone HCl 200 Mg Tablet 200 Mg PO BID Eliquis (Apixaban) 5 Mg Tablet 5 Mg PO BID Iprat-Albut 0.5-3(2.5) mg/3 ml (Ipratropium/Albuterol Sulfate) 3 Ml Ampul.neb 3 Ml INH RTQ4HR Reported Aspirin EC (Aspirin) 81 Mg Tablet.dr 81 Mg PO DAILY Diclofenac Sodium 75 Mg Tablet.dr 75 Mg PO BID Toprol Xl (Metoprolol Succinate) 50 Mg Tab.er.24h 50 Mg PO DAILY Fish Oil 1,000 mg Softgel ([place]-3/Dha/Epa/Fish Oil) 1 Each Capsule 2,000 Mg PO DAILY [Vitamin Pack] 1 Packet PO DAILY Levemir Flextouch (Insulin Detemir) 100 Unit/1 Ml Insuln.pen 80 Units SQ BID Novolog Flexpen (Insulin Aspart) 300 Units/3 Ml Solution 60 Units SQ 1200 Instructions to patient/family Please see electronic discharge instructions given to patient. Diagnosis/Problems Diagnosis/Problems (1) Myopathy Status: Acute (2) Respiratory insufficiency (3) Dehydration Status: Acute (4) Hyperkalemia Status: Acute (5) Acute renal failure Status: Acute (6) Back pain Status: Acute (7) Diabetes Status: Chronic (8) Hypercapnia Status: Acute (9) Hypoxia Status: Acute (10) Abdominal pain Status: Acute (11) Chest pain Status: Acute (12) Atrial fibrillation with rapid ventricular response Status: Acute (13) Cellulitis of left lower extremity Status: Acute (14) Cellulitis of left lower extremity Status: Chronic (15) Diabetes mellitus with hyperglycemia Status: Chronic (16) Lymphedema (17) Obesity hypoventilation syndrome (18) Chronic renal failure Status: Chronic Clinical Quality Measures DVT/VTE Risk/Contraindication: Risk Factor Score Per Nursin RFS Level Per Nursing on Admit: 4+=Very High YARIEL BUI DO Dec 20, 2018 08:27
--- NOTE | 2018-12-20 08:34 | Cardiology Progress Note ---
Subjective Date Seen by Provider: Dec 20, 2018 Time Seen by Provider: 08:32 Subjective/Events-last exam Patient is with PT, reports dyspnea continues to improve. Denies any chest pain, dizziness or lightheadedness. Review of Systems General: No Chills, No Night Sweats, No Fatigue, No Malaise, No Appetite, No Other HEENT: No Head Aches, No Visual Changes, No Eye Pain, No Ear Pain, No Dysphasia, No Sinus Congestion, No Post Nasal Drip, No Sore Throat, No Other Pulmonary: Dyspnea, Cough; No Pleuritic Chest Pain, No Other Cardiovascular: No: Chest Pain, Palpitations, Orthopnea, Paroxysmal Noc. Dyspnea, Edema, Lt Headedness, Other Objective-Cardiology Exam Last Set of Vital Signs Vital Signs 12/16/18 12/20/18 12/20/18 08:15 05:37 06:37 Temp 36.2 Pulse 74 Resp 18 B/P (MAP) 126/68 (87) Pulse Ox 97 O2 Delivery Nasal Cannula O2 Flow Rate 4.00 FiO2 36 Capillary Refill : I&O Intake and Output 12/20/18 00:00 Intake Total 2155 ml Output Total 1725 ml Balance 430 ml Intake Oral 2155 ml Output Urine Total 1725 ml # Bowel Movements 2 General: Alert, Oriented X3, Cooperative, No Acute Distress HEENT: Atraumatic, PERRLA Neck: Supple, No JVD, No Thyromegaly Lungs: Clear to Auscultation (distant sounds) Heart: Regular Rate, Normal S1, Normal S2, No Murmurs Abdomen: Normal Bowel Sounds, Soft, No Tenderness, No Hepatosplenomegaly, No Masses Extremities: No Clubbing, Normal Pulses Skin: No Rashes, No Breakdown, No Significant Lesion Neuro: Normal Speech, Normal Tone Psych/Mental Status: Mental Status NL, Mood NL Results Lab Laboratory Tests 12/20/18 05:53 A/P-Cardiology Admission Diagnosis Acute exacerbation of COPD Acute respiratory failure Hypertension Acute atrial fibrillation Assessment/Plan COPD, acute exacerbation, improving, maintained on prednisone at this time and managed by primary care team Hypertension, difficult to control while on prednisone, patient is receiving multiple medication including Toprol 50 mg daily, Cardizem 240 mg daily, losartan 100 mg daily, hydrochlorothiazide 25 mg daily and Lasix, blood pressure is elevated while on prednisone. Continue on current medication monitor blood pressure Hyperkalemia, improved, potassium was decreased to 20 mEq daily. Continue to monitor Pneumonia, improving, managed by primary care team Cellulitis, managed by primary care team Acute on chronic renal failure, continue to monitor renal function New-onset atrial fibrillation, back to sinus rhythm, change Cardizem to long- acting and monitor tolerance and response Morbid obesity, obesity hypoventilation syndrome and acute respiratory failure. Managed by Dr. Contreras Peripheral edema, chronic, echocardiogram showed normal left ventricular size and function with ejection fraction 55-60 percent, left atrial dilatation measuring 6.1 cm, mild mitral regurgitation, pulmonary hypertension with PA pressure 40-50 mmHg. Continue to monitor Coronary artery disease, history of cardiac catheterization done in 2014 showing coronary ectasia with slow flow, no significant obstructive disease. Conservative management Hyperlipidemia, maintained on simvastatin, I will change to Lipitor secondary to interaction with Amiodarone. Diabetes mellitus, followed and managed by primary care physician Patient was seen and evaluated with Charu, examination performed, management plan was discussed, agree with the current scribed note, I made few changes to the note using Italic font Patient is receiving physical therapy, using oxygen, no significant dyspnea. Blood pressure is elevated. Continue to monitor no changes were recommended Clinical Quality Measures DVT/VTE Risk/Contraindication: Risk Factor Score Per Nursin RFS Level Per Nursing on Admit: 4+=Very High CHARU SHELDON Dec 20, 2018 8:34 am AMI SANTACRUZ MD Dec 20, 2018 9:25 am
--- NOTE | 2018-12-20 08:54 | Physical Therapy Daily Note ---
PT Daily Note-Current Subjective Patient in recliner pre tx, agrees to PT, has no complaints of pain. Appearance Patient in bedside chair post tx with nurse call, phone, tray, all needs met. Mental Status Patient Orientation: Normal For Age Transfers Therapy Quality Codes: 6 Independent with activity with or without an assistive device 5 Patient requires set up or clean up by helper. Patient completes activity by themselves 4 Supervision or touching assist (CGA). [place] provide cues , steadying assist 3 The helper provides less than half the effort to complete the activity 2 The helper provides more than half the effort to complete the activity 1 Dependent. The helper does all the effort to complete an activity 7 Patient refused to complete or attempt activity 9 The patient did not perform the activity before the current illness or injury 88 Not attempted due to Medical conditions or safety concerns Transfers (B, C, W/C): 6 Roll Left to Right (QC): 9 Sit to Lying (QC): 9 Sit to Stand (QC): 6 Chair/Uro-pa-Kpfgn Xfer(QC): 6 Car Transfer (QC): 6 Patient performs sit <-> stand with mod I, transfers with mod I, car transfer mod I. Patient did not want to perform bed mobility or supine <-> sit because it is very uncomfortable for him and he does not do it at home, states he sleeps in a chair. Gait Training Distance: 200'x4 Walk 10 feet (QC): 6 Walk 50 ft with 2 Turns(QC): 6 Walk 150 ft (QC): 6 Walking 10ft/uneven surface-QC: 6 Gait Assistive Device: FWW Patient can ambulate 200' with a rolling walker with mod I (including 50' with at least 2 turns of 90 degrees and 10' over an uneven surface). Patient is SOB after ambulation and needs rest break to recover. Wheelchair Training Does the Pt Use a Wheelchair?: No Stair Training Stair Training: Handrails/: 2 handrails #of Steps: 12 1 Step (curb) (QC): 6 4 Steps (QC): 6 12 Steps (QC): 6 Stairs: Pattern: Reciprocal Patient can go up and down 12 steps using 2 handrails with mod I. Good stability and foot placement. Balance Picking up an Object (QC): 6 Treatments ambulation, transfers, stairs Assessment Current Status: Fair Progress improved general mobility, mod I with ambulation and stairs and transfers PT Short Term Goals Short Term Goals Time Frame: Dec 20, 2018 Gait Distance Comment: 150' Gait Assistive Device: FWW PT Skilled Nursing Goals Skilled Nursing Goals PT President/[employer] Goals Time Frame: Jan 03, 2019 Sit to Lying (QC): 6 Lying-Sitting on Side/Bed(QC): 6 Sit to Stand (QC): 6 (met) Roll Left to Right (QC): 6 Chair/Bnp-mn-[id number] Xfer(QC): 6 (met) Car Transfer (QC): 6 (met) Distance: 200' Walk 10 feet (QC): 6 (met) Walk 10ft-Uneven Surface(QC): 6 (met) Walk 50ft with 2 Turns (QC): 6 (met) Walk 150 ft (QC): 6 (met) Gait Level of Assist: 6 (met) Gait Assistive Device: FWW # of Steps: 4 (met) 1 Step (curb) (QC): 4 (met) 4 Steps (QC): 4 (met) Stairs Level Of Assist: 5 (met) PT Plan Problem List Problem List: Activity Tolerance, Functional Strength, Safety, Balance, Gait Treatment/Plan Treatment Plan: Discontinue PT (patient discharging today) Treatment Plan: Bed Mobility, Education, Functional Activity Johanna, Functional Strength, Group Therapy, Gait, Safety, Therapeutic Exercise, Transfers Treatment Duration: Jan 03, 2019 Frequency: At least 5 of 7 days/Wk (IRF) Estimated Hrs Per Day: 1.5 hours per day Patient and/or Family Agrees t: Yes Safety Risks/Education Patient Education: Gait Training, Transfer Techniques, Steps, Correct Positioning, Safety Issues Teaching Recipient: Patient Teaching Methods: Demonstration, Discussion Response to Teaching: Reinforcement Needed Time/GCodes Time In: 0800 Time Out: 0900 Total Billed Treatment Time: 60 Total Billed Treatment 1 visit FA 30' GT 30' MARINO VEGA PT Dec 20, 2018 08:54
--- NOTE | 2018-12-20 09:20 | Therapy Team Discharge Summary ---
Therapy Discharge Summary Discharge Recommendations Date of Discharge Physical Therapy Patient came to rehab with respiratory failure/sepsis/pneumonia/left LE cellulitis. Upon evaluation patient performed sit <-> stand with SBA, transfers with SBA, car transfer SBA, no bed mobility due to patient refusal and because he doesn't do it at home, ambulated 120' with a rolling walker with SBA (including 50' with at least 2 turns of 90 degrees and 10' over an uneven surface), and went up and down 1 step using a rolling walker with SBA. Patient has been performing bed mobility and transfer training, balance and endurance training, functional strengthening, stair training, gait training, and education. Patient has made good progress and has met all of his mcfp goals except for bed mobility. Now, patient performs sit <-> stand with mod I, transfers with mod I, car transfer mod I, ambulates 200' with a rolling walker with mod I (including 50' with at least 2 turns of 90 degrees and 10' over an uneven surface), can go up and down 12 steps using 2 handrails with mod I, and can flower picker an object from the floor with independence. Patient is discharging from this facility today and will be discharged from PT at this time. Occupational Therapy Decreased Activ Tolerance, Impaired I ADL's PT Turfgrass Technician Goals Turfgrass Technician Goals PT Correction Goals Time Frame: Jan 03, 2019 Transfers (B,C,W/C) (FIM): 6 Roll Left to Right (QC): 6 Sit to Lying (QC): 6 Lying-Sitting on Side/Bed(QC): 6 Sit to Stand (QC): 6 (met) Chair/Jmi-ee-Hlpqc Xfer(QC): 6 (met) Car Transfer (QC): 6 (met) Gait (FIM): 6 Distance: 200' Walk 10 feet (QC): 6 (met) Walk 10ft-Uneven Surface(QC): 6 (met) Walk 50ft with 2 Turns (QC): 6 (met) Walk 150 ft (QC): 6 (met) Gait Level of Assist: 6 (met) Gait Assistive Device: FWW Stairs (FIM): 2 # of Steps: 4 (met) 1 Step (curb) (QC): 4 (met) 4 Steps (QC): 4 (met) Stairs Level Of Assist: 5 (met) OT Correction Goals Correction Goals Eating (FIM): 7 Eating (QC): 6 Oral Hygiene (QC): 7 Grooming(FIM): 7 Bathing(FIM): 6 Shower/Bathe Self (QC): 6 Upper Body Dressing(FIM): 6 Upper Body Dressing (QC): 6 Lower Body Dressing(FIM): 6 Lower Body Dressing (QC): 6 On/Off Footwear (QC): 6 Toileting(FIM): 6 Toileting Hygiene (QC): 6 Transfers (B,C,W/C) (FIM): 7 Toilet/Commode Transfer(FIM): 6 Toilet/Commode Transfer (QC): 6 Tub Transfer(FIM): 6 Shower Transfer(FIM): 6 Additional Goals: 1-Demonstrate ADL Tasks, 2-Verbalize Understanding, 3- ImproveStrength/Johanna 1=Demonstrate adherence to instructed precautions during ADL tasks. 2=Patient will verbalize/demonstrate understanding of assistive devices/modifications for ADL. 3=Patient will improve strength/tolerance for activity to enable patient to perform ADL's. MARINO VEGA PT Dec 20, 2018 09:20
[2018-12-20] MEDS: OMEGA 3 (FISH OIL) 1000 MG CAP PO SCH (10:03)
[2018-12-20] MEDS: HYDROCHLOROTHIAZIDE 25 MG (HCTZ) TAB PO SCH (10:04)
[2018-12-20] MEDS: APIXABAN 5 MG (ELIQUIS) TABLET PO SCH (10:04)
[2018-12-20] MEDS: LOSARTAN 100 MG (COZAAR) TABLET PO SCH (10:04)
[2018-12-20] MEDS: meTOproloL SUCCINATE 50 MG (TOPROL XL) TAB PO SCH (10:04)
[2018-12-20] MEDS: DILTIAZEM 240 MG (CARDIZEM CD) CAP PO SCH (10:04)
[2018-12-20] MEDS: FUROSEMIDE 40 MG (LASIX) TAB PO SCH (10:04)
[2018-12-20] MEDS: ASPIRIN 81 MG CHEW (CHILDREN'S ASA) PO SCH (10:04)
[2018-12-20] MEDS: AMIODARONE 200 MG (CORDARONE) TAB PO SCH (10:04)
[2018-12-20] MEDS: MICONAZOLE 2% POWDER (DESENEX AF) 90 GM TOP SCH (10:05)
--- NOTE | 2018-12-20 10:15 | NUR ---
IMM from Medicare discussed with patient. Patient states he is ready to discharge home Patient signed IMM from Medicare.
--- NOTE | 2018-12-20 10:43 | NUR ---
Confirmed with patient that [facility] has accepted him as a patient and will be out to see him tomorrow, 12/21/18. [facility] to contact patient to scheduled tomorrow's visit. KORY Roblero with [facility] aware of applying BRANDEN wraps to BLE, during appointments. [facility] has information specific to [id number] and will be out today to set up equipment. Patient with no concerns, at this time.
--- NOTE | 2018-12-20 14:15 | NUR ---
FUAD CARSON demonstrates understanding of discharge instructions and accurately returns instructions upon questioning. Copy of Post-Discharge Instructions given to pt. FUAD CARSON is not able to manage continuing needs after discharge andwill see outpt therapy and C. Patients belongings returned to . Patient discharged from 228-1 on 12-20-2018 at 1410. FUAD CARSON left floor via , accompanied by .
[2018-12-20 14:17] VITALS: BP 126/68
--- NOTE | 2018-12-20 15:12 | Occupational Ther Daily Note ---
OT Current Status-Daily Note Subjective No pain reported. Appearance Pt. up in room. Agrees to work with OT. Mental Status/Objective Patient Orientation: Person, Place, Time, Situation ADL-Treatment Therapy Code Descriptions/Definitions Functional [place] Measure: 0=Not Assessed/NA 4=Minimal Assistance 1=Total Assistance 5=Supervision or Setup 2=Maximal Assistance 6=Modified [place] 3=Moderate Assistance 7=Complete IndependenceSCALE: Activities may be completed with or without assistive devices. 2-Eceexqftji-pvphibv completes the activity by him/herself with no assistance from a helper. 5-Set-up or Clean-up Assistance-helper sets up or cleans up; patient completes activity. Burt assists only prior to or following the activity. 4-Supervision or Touching Assistance-helper provides verbal cues and/or touching/steadying and/or contact guard assistance as patient completes activity. Assistance may be provided throughout the activity or intermittently. 3-Partial/Moderate Assistance-helper does LESS THAN HALF the effort. Burt lifts, holds or supports trunk or limbs, but provides less than half the effort. 2-Substantial/Maximal Assistance-helper does MORE THAN HALF the effort. Burt lifts or holds trunk or limbs and provides more than half the effort. 9-Nfhvntaba-snxwtp does ALL the effort. Patient does none of the effort to complete the activity. Or, the assistance of 2 or more helpers is required for the patient to complete the activity. If activity was not attempted, code reason: 7-Patient Refused. 9-Not Applicable-not attempted and the patient did not perform the activity before the current illness, exacerbation or injury. 10-Not Attempted due to Environmental Limitations-(lack of equipment, weather restraints, etc.). 88-Not Attempted due to Medical Conditions or Safety Concerns. Eating (QC): 6 Oral Hygiene (QC): 6 Shower/Bathe Self (QC): 6 Upper Body Dressing (QC): 6 Lower Body Dressing (QC): 6 Toileting Hygiene (QC): 6 Toilet Transfer (QC): 6 Other Treatment Pt. agrees to treatment. Showers and dresses. Able to do so with Mod I. Pt. ambulated to therapy gym and completed arm bike, 5 minutes at mod resistance x 2 sets. Rest break in between. Pt. on 4 L 02. Ambulated back to room. All needs met. Education OT Patient Education: Correct positioning, Modified ADL techniques, Progress toward Goal/Update tx plan, Purpose of tx/functional activities, Reviewed precautions, Rehab process, Transfer techniques, Use of adapted equipment Teaching Recipient: Patient Teaching Methods: Demonstration, Discussion Response to Teaching: Verbalize Understanding, Return Demonstration OT Short Term Goals Short Term Goals Upper Body Dressing(FIM): 6 Lower Body Dressing(FIM): 5 Transfers (B,C,W/C) (FIM): 6 Additional Short Term Goals: 1-Demonstrate ADL Tasks, 2-Verbalize Understanding, 3-ImproveStrength/Johanna 1=Demonstrate adherence to instructed precautions during ADL tasks. 2=Patient will verbalize/demonstrate understanding of assistive devices/modifications for ADL. 3=Patient will improve strength/tolerance for activity to enable patient to perform ADL's. OT Spanner Operator Goals Half-Way Goals Eating (QC): 6 Oral Hygiene (QC): 7 Shower/Bathe Self (QC): 6 Upper Body Dressing (QC): 6 Lower Body Dressing (QC): 6 On/Off Footwear (QC): 6 Toileting Hygiene (QC): 6 Toilet/Commode Transfer (QC): 6 Additional Goals: 1-Demonstrate ADL Tasks, 2-Verbalize Understanding, 3- ImproveStrength/Johanna 1=Demonstrate adherence to instructed precautions during ADL tasks. 2=Patient will verbalize/demonstrate understanding of assistive devices/modifications for ADL. 3=Patient will improve strength/tolerance for activity to enable patient to perform ADL's. OT Education/Plan Problem List/Assessment Assessment: Decreased Activ Tolerance Discharge Recommendations Plan/Recommendations: Discharge/Goals Met Treatment Plan/Plan of Care Treatment,Training & Education: Yes Treatment Duration: Dec 20, 2018 Frequency: At least 5 of 7 days/Wk (IRF) Estimated Hrs Per Day: 1.5 hours per day Agreement: Yes Rehab Potential: Good Time/GCodes Start Time: 09:00 Stop Time: 10:00 Total Time Billed (hr/min): 60 Billed Treatment Time 1, ADL x 45minutes, Ex x 15minutes DAPHNE HUFF OT Dec 20, 2018 15:12
--- NOTE | 2018-12-20 15:16 | Therapy Team Discharge Summary ---
Therapy Discharge Summary Discharge Recommendations Date of Discharge 12-20-18 Therapy D/C Recommendations: Home w/ Family Support Occupational Therapy Pt. has been seen by occupational therapy to increase overall strength and independence with daily tasks. Pt. has met all goals. Pt. will discharge home with spouse support. Pt. has all needed equipment. Decreased Activ Tolerance PT Customer Service Voice Goals Customer Service Voice Goals PT Customer Service Voice Goals Time Frame: Jan 03, 2019 Transfers (B,C,W/C) (FIM): 6 Roll Left to Right (QC): 6 Sit to Lying (QC): 6 Lying-Sitting on Side/Bed(QC): 6 Sit to Stand (QC): 6 (met) Chair/Vzj-kd-Gpvxh Xfer(QC): 6 (met) Car Transfer (QC): 6 (met) Gait (FIM): 6 Distance: 200' Walk 10 feet (QC): 6 (met) Walk 10ft-Uneven Surface(QC): 6 (met) Walk 50ft with 2 Turns (QC): 6 (met) Walk 150 ft (QC): 6 (met) Gait Level of Assist: 6 (met) Gait Assistive Device: FWW Stairs (FIM): 2 # of Steps: 4 (met) 1 Step (curb) (QC): 4 (met) 4 Steps (QC): 4 (met) Stairs Level Of Assist: 5 (met) OT Customer Service Voice Goals Correction Goals Eating (FIM): 7 (met) Eating (QC): 6 (met) Oral Hygiene (QC): 7 (met) Grooming(FIM): 7 (not met) Bathing(FIM): 6 (met) Shower/Bathe Self (QC): 6 (met) Upper Body Dressing(FIM): 6 (met) Upper Body Dressing (QC): 6 (met) Lower Body Dressing(FIM): 6 (met) Lower Body Dressing (QC): 6 (met) On/Off Footwear (QC): 6 (met) Toileting(FIM): 6 (met) Toileting Hygiene (QC): 6 (met) Transfers (B,C,W/C) (FIM): 7 (met) Toilet/Commode Transfer(FIM): 6 (met) Toilet/Commode Transfer (QC): 6 (met) Tub Transfer(FIM): 6 (not met) Shower Transfer(FIM): 6 (met) Additional Goals: 1-Demonstrate ADL Tasks, 2-Verbalize Understanding, 3- ImproveStrength/Johanna 1=Demonstrate adherence to instructed precautions during ADL tasks. 2=Patient will verbalize/demonstrate understanding of assistive devices/modifications for ADL. 3=Patient will improve strength/tolerance for activity to enable patient to perform ADL's. DAPHNE HUFF OT Dec 20, 2018 15:16
--- NOTE | 2018-12-20 16:34 | NUR ---
Spoke with Dr Greene MIMEOGRAPH OPERATOR and she stated pt did not need to go home on lasix and to dc kcl. Message left on answering machine to discontinue the kcl. Pts called earlier to report that they could not afford the eliquis out of pocket. Instructed her to call Dr Gutiérrez's office as they had a oupon for pts. I did call at thi time to follow up with no answer. Message left and will call later.
== END 2018-12-20 16:32 | disposition home health service (06) | DRG 91 ==
PROVIDERS: ADMIT Internal Medicine; ATTEND Internal Medicine
DX: G72.89 Other specified myopathies (principal); R06.89 Other abnormalities of breathing; A41.9 Sepsis, unspecified organism; J18.9 Pneumonia, unspecified organism; E66.2 Morbid (severe) obesity with alveolar hypoventilation; J44.1 Chronic obstructive pulmonary disease with (acute) exacerbation; N17.9 Acute kidney failure, unspecified; L03.116 Cellulitis of left lower limb; I48.91 Unspecified atrial fibrillation; I12.9 Hypertensive chronic kidney disease with stage 1 through stage 4 chronic kidney disease, or unspecified chronic kidney disease; N18.9 Chronic kidney disease, unspecified; E78.5 Hyperlipidemia, unspecified; I89.0 Lymphedema, not elsewhere classified; E11.40 Type 2 diabetes mellitus with diabetic neuropathy, unspecified; E11.65 Type 2 diabetes mellitus with hyperglycemia; I34.0 Nonrheumatic mitral (valve) insufficiency; I27.20 Pulmonary hypertension, unspecified; I25.10 Atherosclerotic heart disease of native coronary artery without angina pectoris; D64.9 Anemia, unspecified; E87.5 Hyperkalemia; Z79.4 Long term (current) use of insulin
CPT/HCPCS: 36415; 71045; 71046; 80048; 80053; 82962; 83735; 83880; 84100; 85007; 85025; 85027; 94640; 94660; 94664; 94760; 94761

== ENCOUNTER 2018-12-24 15:33 | Emergency (ER) | payer MEDICARE ==
[~2018-12-24] VITALS: Ht 180 cm; Wt 166.0 kg
[~2018-12-24 15:33] MED LIST changes: +AMIO200T4 PO; +APIX5TAB PO; +ATOR10TA66 PO; +DILT240C97 PO; +IPRA3AMP31 INH; +LOSA100T57 PO; +POTA-51 PO; +PRD20T PO
[2018-12-24] MEDS ORDERED: methylPREDNISolone 125 MG (Solu-MEDROL) VIAL IVP ONE (15:45)
--- NOTE | 2018-12-24 15:49 | ED Dyspnea ---
General Stated Complaint: SOA Source of Information: Patient, EMS, Old Records History of Present Illness Date Seen by Provider: Dec 24, 2018 Time Seen by Provider: 15:33 Initial Comments PT ARRIVES VIA [facility] FROM HOME PT C/O SHORTNESS OF BREATH--ON EXERTION AND WITH LAYING FLAT NO CHEST PAIN NO FEVER OCCASIONAL NON-PRODUCTIVE COUGH LEGS ARE NOT SWOLLEN THEY HAVE BEEN PT WAS HOSPITALIZED FOR 14 DAYS FOR RESPIRATORY PROBLEMS/SEPSIS/LEG CELLULITIS/PNEUMONIA--ADMITTED 12/04/18 AND DISMISSED ON Thursday12/20/18 WAS SEEN BY HOME HEALTH EARLIER TODAY AND WAS TOLD TO GO TO THE CLINIC "OR GO TO ER" PT STATES HE WAS NOT ON ANY MEDICATIONS OTHER THAN INSULIN, PRIOR TO HIS RECENT ADMIT WAS DX WITH ATRIAL FIB WHILE IN HOSPITAL WELL. NOW IS ON MULTIPLE NEW MEDICATIONS, INCLUDING HOME O2 AND NEB TREATMENTS, AND IS CURRENTLY ON PREDNIS[facility] EMS GAVE NEB TREATMENT EN ROUTE PT HAS BIPAP AT HOME, THAT HE IS SUPPOSED TO USE, BUT STATES HE "DIDN'T THINK ABOUT USING IT" PT STATES HIS BLOOD SUGARS HAVE BEEN HIGH TODAY--325 THIS AM, UP TO 491 TODAY PCP: DR. ALEXIS, [facility] Allergies and Home Medications Allergies Coded Allergies: JORGEANo Known Allergies (Verified Allergy, Unknown, 05/15/05) Home Medications Amiodarone HCl 200 Mg Tablet, 200 MG PO BID Prescribed by: YARIEL BUI on 12/20/18822 Apixaban 5 Mg Tablet, 5 MG PO BID Prescribed by: YARIEL BUI on 12/20/18822 Aspirin 81 Mg Tablet., 81 MG PO DAILY, (Reported) Atorvastatin Calcium 10 Mg Tablet, 10 MG PO HS Prescribed by: YARIEL BUI on 12/20/18822 Diclofenac Sodium 75 Mg Tablet., 75 MG PO BID, (Reported) Diltiazem HCl 240 Mg Cap.er.24h, 240 MG PO DAILY Prescribed by: YARIEL BUI on 12/20/18822 Insulin Aspart 300 Units/3 Ml Solution, 60 UNITS SQ 1200, (Reported) Insulin Detemir 100 Unit/1 Ml Insuln.pen, 80 UNITS SQ BID, (Reported) Ipratropium/Albuterol Sulfate 3 Ml Ampul.neb, 3 ML INH RTQ4HR Prescribed by: YARIEL BUI on 12/20/18822 Losartan Potassium 100 Mg Tablet, 100 MG PO DAILY Prescribed by: YARIEL BUI on 12/20/18822 Metoprolol Succinate 50 Mg Tab.er.24h, 50 MG PO DAILY, (Reported) [place]-3/Dha/Epa/Fish Oil 1 Each Capsule, 2,000 MG PO DAILY, (Reported) Potassium Chloride 20 Meq Tablet.er, 20 MEQ PO DAILY Prescribed by: YARIEL BUI on 12/20/18822 Prednisone 20 Mg Tab, 40 MG PO DAILY@0700 Prescribed by: YARIEL BUI on 12/20/18822 [Vitamin Pack] , 1 PACKET PO DAILY, (Reported) Patient Home Medication List Home Medication List Reviewed: Yes Review of Systems Review of Systems Constitutional: no symptoms reported; No chills, No diaphoresis, No dizziness, No fever EENTM: no symptoms reported Respiratory: see HPI, cough, dyspnea on exertion, orthopnea, short of breath; No wheezing Cardiovascular: No chest pain; edema; No palpitations, No syncope Gastrointestinal: no symptoms reported Genitourinary: no symptoms reported Musculoskeletal: no symptoms reported Skin: no symptoms reported Psychiatric/Neurological: No Symptoms Reported Endocrine: See HPI Hematologic/Lymphatic: No Symptoms Reported Past Ajbsqwg-Taktlt-Bmqxus Hx Patient Social History Alcohol Use: Occasionally Uses (HISTORY OF ABUSE--STATES HE USED TO DRINK 3 GALLONS OF WHISKEY/MONTH, OVER 20 YEARS AGO, NOW ONLY OCCASIONALLY DRINKS) Alcohol Beverage of Choice: Beer Recreational Drug Use: No Smoking Status: Former Smoker (3 PPD, QUIT >10 YEARS AGO, PER PT ON 12/24/18) Type Used: Cigarettes (3 PPD, QUIT 2004 OR 2005) Recent Hopitalizations: Yes (12/04/18-12/20/18 FOR PNEUMONIA/COPD/AFIB/LEG CELLULITIS/SEPSIS) Immunizations Up To Date Tetanus Booster (TDap): More than 5yrs Seasonal Allergies Seasonal Allergies: No Past Medical History Surgeries: Yes (CARDIAC CATH-NO INTERVENTION; UMBILICAL/VENTRAL HERNIA REPAIR, THEN INCISIONALHERNIA REPAIR) Abdominal, Cardiac Respiratory: Yes (FORMER SMOKER 3 PPD, QUIT 2004 OR 2005; O2 DEPENDENT OF 12/20/18; OBESITY/HYPOVENTILATION SYNDROME) Pneumonia, COPD Currently Using CPAP: No Currently Using BIPAP: Yes (SINCE IN HOSPITAL) Cardiac: Yes (CARDIAC CATH--NO INTERVENTION) Atrial Fibrillation, Chronic Edema/Swelling, High Cholesterol, Hypertension Neurological: Yes Neuropathy Reproductive Disorders: No Sexually Transmitted Disease: No Genitourinary: Yes Renal Failure Gastrointestinal: Yes Abdominal Hernia 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) Arthritis Endocrine: Yes (OBESITY) Diabetes, Insulin dep HEENT: Yes (GLASSES) Cataract Loss of Vision: Denies Hearing Impairment: Denies Cancer: No Psychosocial: Yes Sleep Difficulties Integumentary: No Blood Disorders: No Family Medical History Diabetes mellitus 19 FATHER G8 BROTHER Hypertension G8 BROTHER Myocardial infarction 19 FATHER, Onset:50's - 60 Physical Exam Vital Signs Vital Signs - First Documented 12/24/18 15:33 Temp 36.1 Pulse 69 Resp 27 B/P (MAP) 176/73 (107) Pulse Ox 95 O2 Delivery Nasal Cannula O2 Flow Rate 4.00 Capillary Refill : Height, Weight, BMI Height: 5'11" Weight: 260lbs. 0.0oz. [id number]; 14.24 BMI Method:Stated General Appearance: Obese, Other (NO DYSPNEA AT REST, BUT HAS SOME MILD DYSPNEA WITH MINIMAL EXERTION, WITH SIMPLY TRANSFERRING FROM EMS CART TO ER CART. ) HEENT: PERRL/EOMI, Other (POOR DENTITION, WITH EXTENSIVE DECAY TO FEW REMAINING TEETH) Neck: Normal Inspection Respiratory: Normal Breath Sounds, No Accessory Muscle Use, Other ( ABOVE) Cardiovascular: Regular Rate, Rhythm, No Murmur Gastrointestinal: Non Tender, Soft, Other (MULTIPLE BRUISES TO ABDOMEN--DUE TO RECENT INJECTIONS WHILE IN HOSPITAL) Extremity: Pedal Edema (2+ EDEMA ON RIGHT, 3+ EDEMA ON LEFT), Other (STRONG PEDAL PULSES; CHRONIC VENOUS STASIS CHANGES TO BILATERAL LOWER LEGS, NO OVERT CELLULITIS AT THIS TIME. ) Neurologic/Psychiatric: Alert, Oriented x3, No Motor/Sensory Deficits, Normal Mood/Affect, outpatient pharmacy manager II-XII Norm as Tested Skin: Normal Color, Warm/Dry, Ecchymosis ( ABOVE) Focused Exam Lactate Level 12/24/18 15:45: Lactic Acid Level 1.00 Lactic Acid Level Laboratory Tests Test 12/24/18 15:45 Lactic Acid Level 1.00 MMOL/L (0.50-2.00) Progress/Results/Core Measures Results/Orders Lab Results Laboratory Tests Test 12/24/18 15:45 12/24/18 16:10 Range/Units White Blood Count 11.9 H 4.3-11.0 10^3/uL Red Blood Count 3.20 L 4.35-5.85 10^6/uL Hemoglobin 9.5 L 13.3-17.7 G/DL Hematocrit 30 L 40-54 % Mean Corpuscular Volume 95 80-99 FL Mean Corpuscular Hemoglobin 30 25-34 PG Mean Corpuscular Hemoglobin Concent 31 L 32-36 G/DL Red Cell Distribution Width 15.2 H 10.0-14.5 % Platelet Count 330 130-400 10^3/uL Mean Platelet Volume 9.7 7.4-10.4 FL Neutrophils (%) (Auto) 92 H 42-75 % Lymphocytes (%) (Auto) 4 L 12-44 % Monocytes (%) (Auto) 3 0-12 % Eosinophils (%) (Auto) 1 0-10 % Basophils (%) (Auto) 0 0-10 % Neutrophils # (Auto) 10.9 H 1.8-7.8 X 10^3 Lymphocytes # (Auto) 0.5 L 1.0-4.0 X 10^3 Monocytes # (Auto) 0.4 0.0-1.0 X 10^3 Eosinophils # (Auto) 0.1 0.0-0.3 10^3/uL Basophils # (Auto) 0.0 0.0-0.1 10^3/uL Neutrophils % (Manual) 85 % Lymphocytes % (Manual) 3 % Monocytes % (Manual) 5 % Band Neutrophils 7 % Blood Morphology Comment NORMAL Prothrombin Time 14.3 12.2-14.7 SEC INR Comment 1.1 0.8-1.4 Activated Partial Thromboplast Time 27 24-35 SEC Sodium Level 141 135-145 MMOL/L Potassium Level 5.5 H 3.6-5.0 MMOL/L Chloride Level 107 98-107 MMOL/L Carbon Dioxide Level 29 21-32 MMOL/L Anion Gap 5 5-14 MMOL/L Blood Urea Nitrogen 50 H 7-18 MG/DL Creatinine 1.64 H 0.60-1.30 MG/DL Estimat Glomerular Filtration Rate 43 BUN/Creatinine Ratio 30 Glucose Level 185 H 70-105 MG/DL Lactic Acid Level 1.00 0.50-2.00 MMOL/L Calcium Level 8.6 8.5-10.1 MG/DL Corrected Calcium 9.0 8.5-10.1 MG/DL Magnesium Level 2.3 1.6-2.4 MG/DL Total Bilirubin 0.3 0.1-1.0 MG/DL Aspartate Amino Transf (AST/SGOT) 16 5-34 U/L Alanine Aminotransferase (ALT/SGPT) 38 0-55 U/L Alkaline Phosphatase 56 40-136 U/L Total Creatine Kinase 48 30-200 U/L Creatine Kinase MB 2.1 <6.6 NG/ML Troponin I < 0.028 <0.028 NG/ML B-Type Natriuretic Peptide 128.9 H <100.0 PG/ML Total Protein 6.5 6.4-8.2 GM/DL Albumin 3.5 3.2-4.5 GM/DL Urine Color YELLOW Urine Clarity CLEAR Urine pH 5 5-9 Urine Specific [place] 1.015 L 1.016-1.022 Urine Protein 4+ NEGATIVE Urine Glucose (UA) 4+ H NEGATIVE Urine Ketones NEGATIVE NEGATIVE Urine Nitrite NEGATIVE NEGATIVE Urine Bilirubin NEGATIVE NEGATIVE Urine Urobilinogen NORMAL NORMAL MG/DL Urine Leukocyte Esterase NEGATIVE NEGATIVE Urine RBC (Auto) 2+ H NEGATIVE Urine RBC 0-2 /HPF Urine WBC RARE /HPF Urine Crystals NONE /LPF Urine Bacteria NEGATIVE /HPF Urine Casts PRESENT /LPF Urine Hyaline Casts 0-2 H /LPF Urine Mucus NEGATIVE /LPF Urine Culture Indicated NO Micro Results Microbiology 12/24/18 Influenza Types A,B Antigen (TISHA) - Final, Complete My Orders Orders - HEAVENLY RIVERA DO Accucheck Stat ONCE (12/24/18 15:40) Ed Iv/Invasive Line Start (12/24/18 15:40) Ekg Tracing (12/24/18 15:40) O2 (12/24/18 15:40) Monitor-Rhythm Ecg Trace Only (12/24/18 15:40) Chest 1 View, Ap/Pa Only (12/24/18 15:40) BNP (12/24/18 15:40) Cbc With Automated Diff (12/24/18 15:40) Comprehensive Metabolic Panel (12/24/18 15:40) Creatine Kinase (12/24/18 15:40) Creatine Kinase Mb (12/24/18 15:40) Lactic Acid Analyzer (12/24/18 15:40) Magnesium (12/24/18 15:40) Protime With Inr (12/24/18 15:40) Partial Thromboplastin Time (12/24/18 15:40) Ua Culture If Indicated (12/24/18 15:40) Blood Culture (12/24/18 15:40) Influenza A And B Antigens (12/24/18 15:40) Troponin I (12/24/18 15:40) Sputum Culture (12/24/18 15:40) Urine Culture (12/24/18 15:40) Ed Iv/Invasive Line Start (12/24/18 15:40) Ed Iv/Invasive Line Start (12/24/18 15:40) Vital Signs Adult Sepsis Patie Q15M (12/24/18 15:40) O2 (12/24/18 15:40) Remove Rings In Anticipation O (12/24/18 15:40) Methylprednisolone Sod Succ (Solu-Medrol (12/24/18 15:45) Manual Differential (12/24/18 15:45) Calcium Gluconate 10% Inj (Calcium Glu (12/24/18 16:30) Insulin (Regular) Human (Humulin R (Per (12/24/18 16:30) Sodium Polystyrene Sulfonate (Kayexalate (12/24/18 16:30) Furosemide Injection (Lasix Injection) (12/24/18 17:15) Medications Given in ED Current Medications Medications Dose Ordered Sig/Mayra Route Start Time Stop Time Status Last Admin Dose Admin Calcium Gluconate 4.65 meq ONCE ONCE IV 12/24/18 16:30 12/24/18 16:31 DC 12/24/18 16:33 4.65 MEQ Insulin Human Regular 10 unit ONCE ONCE IV 12/24/18 16:30 12/24/18 16:31 DC 12/24/18 16:32 10 UNIT Methylprednisolone Sodium Succinate 125 mg ONCE ONCE IVP 12/24/18 15:45 12/24/18 15:46 DC 12/24/18 16:11 125 MG Sodium Polystyrene Sulfonate 15 gm ONCE ONCE PO 12/24/18 16:30 12/24/18 16:31 DC 12/24/18 16:35 15 GM Vital Signs/I&O 12/24/18 12/24/18 12/24/18 15:33 15:33 17:43 Temp 36.1 Pulse 69 63 Resp 27 20 B/P (MAP) 176/73 (107) 163/81 Pulse Ox 95 95 99 O2 Delivery Nasal Cannula Nasal Cannula Nasal Cannula O2 Flow Rate 4.00 4.00 4.00 Progress Progress Note : Progress Note UNEVENTFUL ER STAY O2 SATS REMAINED IN UPPER 90'S DURING ENTIRE ER STAY BP DOWN WITHOUT TREATMENT HOME HEALTH WILL BE CHECKING ON PT TOMORROW. PT STATES HE WILL USE CPAP IF HIS BREATHING GETS WORSE, Initial ECG Impression Date: Dec 24, 2018 Initial ECG Impression Time: 15:51 Initial ECG Rate: 62 Initial ECG Rhythm: Normal Sinus Initial ECG Impression: Nonspecific Changes Initial ECG Comparisson: Changed (WAS IN ATRIAL FIBRILLATION, NOW NSR) Diagnostic Imaging Comments CXR--PER RADIOLOGIST REPORT AT 1638 FINDINGS: There is a minimal right pleural effusion. There is hazy opacity in the lung bases which may be due to overlying soft tissue or possibly infiltrate. There is cardiomegaly with central vascular congestion. No pneumothorax is seen. Overall aeration appears mildly improved compared to 12/19/2018. IMPRESSION: 1. Small right pleural effusion. Bibasilar haziness may be due to overlying soft tissue versus infiltrate. Overall aeration appears mildly improved since 12/19/2018. 2. Cardiomegaly with central vascular congestion. Reviewed: Reviewed by Me Departure Communication (Admissions) 1797--SPOKE WITH DR. BUI, PT DOES NOT REALLY MEET ADMIT CRITERIA AT THIS TIME, AND PT'S CURRENT SYMPTOMS ARE NO WORSE THAN WHEN HE WAS IN REHAB. IF PT'S SYMPTOMS WORSEN OVER WEEKEND, PT IS TO RETURN AND MAY NEED TO ADMIT AT THAT TIME, PT MAY EVENTUALLY NEED [facility] CARE. Impression Primary Impression: COPD (chronic obstructive pulmonary disease) Additional Impressions: CHF (congestive heart failure) Hyperkalemia HTN (hypertension) Obesity hypoventilation syndrome Anemia Chronic renal insufficiency IDDM (insulin dependent diabetes mellitus) CHRONIC LEG EDEMA Disposition: HOME, SELF-CARE Condition: Stable Departure-Patient Inst. Referrals: EB ALEXIS MD (PCP/Family) Primary Care Physician Patient Instructions: COPD Including Emphysema (DC), Heart Failure, Adult (DC), High Blood Pressure (DC) Add. Discharge Instructions: CUT YOUR POTASSIUM DOSE IN HALF THIS WEEKEND USE YOUR NEBULIZER AND BIPAP ADVISED TAKE YOUR OTHER MEDICATIONS PRESCRIBED FOLLOW UP WITH DR. ALEXIS ON THURSDAY ALSO FOLLOW UP WITH DR. SANTACRUZ AND DR. SMITH NEXT WEEK RETURN TO ER IF WORSE HAVE HOME HEALTH CHECK ON YOU TOMORROW HEAVENLY RIVERA DO Dec 24, 2018 15:49
[2018-12-24 16:03] LABS: BASOPHILS % (AUTO) 0 % (0-10); EOSINOPHILS # (AUTO) 0.1 10^3/uL (0.0-0.3); EOSINOPHILS % (AUTO) 1 % (0-10); HEMATOCRIT 30 % (40-54); HEMOGLOBIN 9.5 G/DL (13.3-17.7); LYMPHOCYTES # (AUTO) 0.5 X 10^3 (1.0-4.0); LYMPHOCYTES % (AUTO) 4 % (12-44); MEAN CORPUSCULAR HEMOGLOBIN 30 PG (25-34); MEAN CORPUSCULAR HGB CONC 31 G/DL (32-36); MEAN CORPUSCULAR VOLUME 95 FL (80-99); MEAN PLATELET VOLUME 9.7 FL (7.4-10.4); MONOCYTES # (AUTO) 0.4 X 10^3 (0.0-1.0); MONOCYTES % (AUTO) 3 % (0-12); NEUTROPHILS # (AUTO) 10.9 X 10^3 (1.8-7.8); NEUTROPHILS % (AUTO) 92 % (42-75); PLATELET COUNT 330 10^3/uL (130-400); RED CELL DISTRIBUTION WIDTH 15.2 % (10.0-14.5); WHITE BLOOD COUNT 11.9 10^3/uL (4.3-11.0)
--- NOTE | 2018-12-24 16:06 | NUR ---
PT HOME MEDS ON FILE
[2018-12-24 16:09] LABS: INR 1.1 (0.8-1.4); PROTHROMBIN TIME PATIENT 14.3 SEC (12.2-14.7)
[2018-12-24 16:19] LABS: ALANINE AMINOTRANSFERASE 38 U/L (0-55); ALBUMIN 3.5 GM/DL (3.2-4.5); ALKALINE PHOSPHATASE 56 U/L (40-136); BILIRUBIN,TOTAL 0.3 MG/DL (0.1-1.0); BUN/CREATININE RATIO 30; CALCIUM 8.6 MG/DL (8.5-10.1); CARBON DIOXIDE 29 MMOL/L (21-32); CHLORIDE 107 MMOL/L (98-107); CREATINE KINASE 48 U/L (30-200); CREATININE SERUM 1.64 MG/DL (0.60-1.30); GFR ESTIMATED 43; GLUCOSE 185 MG/DL (70-105); MAGNESIUM 2.3 MG/DL (1.6-2.4); POTASSIUM 5.5 MMOL/L (3.6-5.0); SODIUM 141 MMOL/L (135-145); TOTAL PROTEIN 6.5 GM/DL (6.4-8.2)
[2018-12-24 16:23] LABS: BILIRUBIN,URINE NEGATIVE (NEGATIVE); CLARITY,URINE CLEAR; COLOR,URINE YELLOW; GLUCOSE, URINE (UA) 4+ (NEGATIVE); KETONES,URINE NEGATIVE (NEGATIVE); LEUKOCYTE ESTERASE ,URINE NEGATIVE (NEGATIVE); NITRITE,URINE NEGATIVE (NEGATIVE); PH,URINE 5 (5-9); PROTEIN,URINE 4+ (NEGATIVE); UROBILINOGEN,URINE NORMAL (NORMAL)
[2018-12-24 16:26] LABS: CREATINE KINASE MB 2.1 NG/ML (<6.6)
[2018-12-24] MEDS ORDERED: SOD POLYSTERENE 15 GM/60 ML (KAYEXALATE) UNIT DOSE PO ONE (16:30)
[2018-12-24] MEDS ORDERED: CALCIUM GLUC. 10% 4.65 MEQ/10 ML VIAL IV ONE (16:30)
[2018-12-24] MEDS ORDERED: inSUlin (REGULAR) HUMAN 1 UNIT/0.01 ML (CHARGE PER UNIT) IV ONE (16:30)
--- NOTE | 2018-12-24 16:31 | Diagnostic Imaging Report ---
PATIENT HISTORY: Shortness of air. TECHNIQUE: Frontal view of the chest. COMPARISON: 12/19/2018 and priors. FINDINGS: There is a minimal right pleural effusion. There is hazy opacity in the lung bases which may be due to overlying soft tissue or possibly infiltrate. There is cardiomegaly with central vascular congestion. No pneumothorax is seen. Overall aeration appears mildly improved compared to 12/19/2018. IMPRESSION: 1. Small right pleural effusion. Bibasilar haziness may be due to overlying soft tissue versus infiltrate. Overall aeration appears mildly improved since 12/19/2018. 2. Cardiomegaly with central vascular congestion. Dictated by: Dictated on workstation # [id number]
[2018-12-24 16:48] LABS: BACTERIA,URINE NEGATIVE /HPF; HYALINE CASTS, URINE 0-2 /LPF; RBC,URINE 0-2 /HPF; WBC,URINE RARE /HPF
[2018-12-24] MEDS ORDERED: FUROSEMIDE 40 MG/4 ML INJ (LASIX) IVP ONE (17:15)
[2018-12-24 17:19] LABS: BAND NEUTROPHILS 7 %; LYMPHOCYTES % (MANUAL) 3 %; MONOCYTES % (MANUAL) 5 %; NEUTROPHILS % (MANUAL) 85 %
[2018-12-24 17:20] LABS: RBC MORPH NORMAL
[2018-12-24 17:43] VITALS: BP 163/81
== END 2018-12-24 18:30 | disposition home or self-care (01) ==
LOC: EDUNIT# 15:33 → ER 15:34
DX: J44.9 Chronic obstructive pulmonary disease, unspecified (principal); E11.22 Type 2 diabetes mellitus with diabetic chronic kidney disease; I13.0 Hypertensive heart and chronic kidney disease with heart failure and stage 1 through stage 4 chronic kidney disease, or unspecified chronic kidney disease; I50.9 Heart failure, unspecified; N18.9 Chronic kidney disease, unspecified; E11.40 Type 2 diabetes mellitus with diabetic neuropathy, unspecified; E87.5 Hyperkalemia; E66.2 Morbid (severe) obesity with alveolar hypoventilation; D64.9 Anemia, unspecified; R60.0 Localized edema; I10 Essential (primary) hypertension; I48.91 Unspecified atrial fibrillation; E78.00 Pure hypercholesterolemia, unspecified; Z95.9 Presence of cardiac and vascular implant and graft, unspecified; Z79.82 Long term (current) use of aspirin; Z79.4 Long term (current) use of insulin; Z87.891 Personal history of nicotine dependence; Z82.49 Family history of ischemic heart disease and other diseases of the circulatory system; Z68.43 Body mass index [BMI] 50.0-59.9, adult
CPT/HCPCS: 36415; 71045; 80053; 81000; 82550; 82553; 83605; 83735; 83880; 84484; 85007; 85027; 85610; 85730; 87040; 87088; 87804; 93005; 93041; 96374; 96375

== ENCOUNTER 2018-12-28 14:25 | Inpatient (IN) | payer MEDICARE ==
[~2018-12-28] VITALS: Ht 180 cm; Wt 166.2 kg
[2018-12-28] MEDS ORDERED: RT-ALBUTEROL/IPRATROPIUM 3 ML (DUONEB) VIAL INH ONE (14:30)
--- NOTE | 2018-12-28 14:35 | ED Cough/URI ---
General Stated Complaint: SOA Source: patient Exam Limitations: no limitations History of Present Illness Date Seen by Provider: Dec 28, 2018 Time Seen by Provider: 14:34 Initial Comments To ER per private vehicle from home with worsening of shortness of breath. This is been ongoing for 2 weeks, [facility] prescribed him several medications including prednisone amiodarone and diltiazem and apixaban for new onset A. fib on 12/20/18. He is taking all of these except for the apixaban. His prednisone dose is 20 mg daily. He wears oxygen at 4 L per nasal cannula [id number]. No fevers or chills. Does have a productive cough. History of COPD. Timing/Duration: getting worse Severity/Quality: productive cough Prior Episodes/Possible Cause: occasional episodes Associated Symptoms: cough, shortness of breath Allergies and Home Medications Allergies Coded Allergies: JORGEANo Known Allergies (Verified Allergy, Unknown, 05/15/05) Home Medications Amiodarone HCl 200 Mg Tablet, 200 MG PO BID Prescribed by: YARIEL BUI on 12/20/18822 Apixaban 5 Mg Tablet, 5 MG PO BID Prescribed by: YARIEL BUI on 12/20/18822 Aspirin 81 Mg Tablet.dr, 81 MG PO DAILY, (Reported) Atorvastatin Calcium 10 Mg Tablet, 10 MG PO HS Prescribed by: YARIEL BUI on 12/20/18822 Diclofenac Sodium 75 Mg Tablet.dr, 75 MG PO BID, (Reported) Diltiazem HCl 240 Mg Cap.er.24h, 240 MG PO DAILY Prescribed by: YARIEL BUI on 12/20/18822 Insulin Aspart 300 Units/3 Ml Solution, 60 UNITS SQ 1200, (Reported) Insulin Detemir 100 Unit/1 Ml Insuln.pen, 80 UNITS SQ BID, (Reported) Ipratropium/Albuterol Sulfate 3 Ml Ampul.neb, 3 ML INH RTQ4HR Prescribed by: YARIEL BUI on 12/20/18822 Losartan Potassium 100 Mg Tablet, 100 MG PO DAILY Prescribed by: YARIEL BUI on 12/20/18822 Metoprolol Succinate 50 Mg Tab.er.24h, 50 MG PO DAILY, (Reported) Freedom-3/Dha/Epa/Fish Oil 1 Each Capsule, 2,000 MG PO DAILY, (Reported) Potassium Chloride 20 Meq Tablet.er, 20 MEQ PO DAILY Prescribed by: YARIEL BUI on 12/20/18822 Prednisone 20 Mg Tab, 40 MG PO DAILY@0700 Prescribed by: YARIEL BUI on 12/20/18822 [Vitamin Pack] , 1 PACKET PO DAILY, (Reported) Patient Home Medication List Home Medication List Reviewed: Yes Review of Systems Review of Systems Constitutional: see HPI EENTM: see HPI Respiratory: see HPI, cough Cardiovascular: no symptoms reported Genitourinary: no symptoms reported Musculoskeletal: no symptoms reported Skin: no symptoms reported Psychiatric/Neurological: No Symptoms Reported Hematologic/Lymphatic: No Symptoms Reported Immunological/Allergic: no symptoms reported Past Sirhswr-Bntnzo-Inpnzr Hx Patient Social History Alcohol Beverage of Choice: Beer Type Used: Cigarettes Recent Hopitalizations: Yes (12/04/18-12/20/18 FOR PNEUMONIA/COPD/AFIB/LEG CELLULITIS/SEPSIS) Immunizations Up To Date Tetanus Booster (TDap): More than 5yrs Seasonal Allergies Seasonal Allergies: No Past Medical History Surgeries: Yes Abdominal, Cardiac Respiratory: Yes Pneumonia, COPD Currently Using CPAP: No Currently Using BIPAP: Yes ([facility]) Cardiac: Yes (CARDIAC CATH--NO INTERVENTION) Atrial Fibrillation, Chronic Edema/Swelling, High Cholesterol, Hypertension Neurological: Yes Neuropathy Reproductive Disorders: No Sexually Transmitted Disease: No Genitourinary: Yes Renal Failure Gastrointestinal: Yes Abdominal Hernia 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 0.0oz. 117.058054hq; 51.00 BMI Method:Stated General Appearance: WD/WN, mild distress, obese, other (, oxygen saturation 86% on his baseline 4 L) Eyes: Bilateral Eye EOMI HEENT: PERRL/EOMI, normal ENT inspection Neck: non-tender, full range of motion Respiratory: no accessory muscle use, decreased breath sounds (bilateral bases), accessory muscle use Cardiovascular: regular rate, rhythm, no murmur Gastrointestinal: normal bowel sounds, non tender, soft Extremities: normal range of motion Neurologic/Psychiatric: alert, normal mood/affect, oriented x 3 Skin: normal color, warm/dry Progress/Results/Core Measures Suspected Sepsis SIRS Temperature: Pulse: Respiratory Rate: Laboratory Tests 12/28/18 14:34: White Blood Count 10.4 Blood Pressure / Mean: Laboratory Tests 12/28/18 14:34: Creatinine 1.57H, Platelet Count 251, Total Bilirubin 0.6 Results/Orders Lab Results Laboratory Tests Test 12/28/18 14:34 12/28/18 14:56 Range/Units White Blood Count 10.4 4.3-11.0 10^3/uL Red Blood Count 3.27 L 4.35-5.85 10^6/uL Hemoglobin 9.7 L 13.3-17.7 G/DL Hematocrit 31 L 40-54 % Mean Corpuscular Volume 96 80-99 FL Mean Corpuscular Hemoglobin 30 25-34 PG Mean Corpuscular Hemoglobin Concent 31 L 32-36 G/DL Red Cell Distribution Width 16.0 H 10.0-14.5 % Platelet Count 251 130-400 10^3/uL Mean Platelet Volume 9.4 7.4-10.4 FL Neutrophils (%) (Auto) 90 H 42-75 % Lymphocytes (%) (Auto) 4 L 12-44 % Monocytes (%) (Auto) 5 0-12 % Eosinophils (%) (Auto) 1 0-10 % Basophils (%) (Auto) 0 0-10 % Neutrophils # (Auto) 9.3 H 1.8-7.8 X 10^3 Lymphocytes # (Auto) 0.4 L 1.0-4.0 X 10^3 Monocytes # (Auto) 0.5 0.0-1.0 X 10^3 Eosinophils # (Auto) 0.1 0.0-0.3 10^3/uL Basophils # (Auto) 0.0 0.0-0.1 10^3/uL Neutrophils % (Manual) 92 % Lymphocytes % (Manual) 3 % Monocytes % (Manual) 3 % Eosinophils % (Manual) 0 % Basophils % (Manual) 0 % Band Neutrophils 2 % Polychromasia SLIGHT Hypochromasia SLIGHT Poikilocytosis SLIGHT Anisocytosis SLIGHT Helmet Cells SLIGHT Sodium Level 143 135-145 MMOL/L Potassium Level 6.3 H 3.6-5.0 MMOL/L Chloride Level 108 H 98-107 MMOL/L Carbon Dioxide Level 31 21-32 MMOL/L Anion Gap 4 L 5-14 MMOL/L Blood Urea Nitrogen 59 H 7-18 MG/DL Creatinine 1.57 H 0.60-1.30 MG/DL Estimat Glomerular Filtration Rate 45 BUN/Creatinine Ratio 38 Glucose Level 121 H 70-105 MG/DL Calcium Level 8.5 8.5-10.1 MG/DL Corrected Calcium 8.8 8.5-10.1 MG/DL Total Bilirubin 0.6 0.1-1.0 MG/DL Aspartate Amino Transf (AST/SGOT) 21 5-34 U/L Alanine Aminotransferase (ALT/SGPT) 49 0-55 U/L Alkaline Phosphatase 50 40-136 U/L Troponin I < 0.028 <0.028 NG/ML B-Type Natriuretic Peptide 206.6 H <100.0 PG/ML Total Protein 6.5 6.4-8.2 GM/DL Albumin 3.6 3.2-4.5 GM/DL Blood Gas Puncture Site RT RAD Blood Gas Patient Temperature 36.7 Arterial Blood pH 7.36 L 7.37-7.43 Arterial Blood Partial Pressure CO2 54 H 35-45 MMHG Arterial Blood Partial Pressure O2 103 H 79-93 MMHG Arterial Blood HCO3 30 H 23-27 MMOL/L Arterial Blood Total CO2 31.9 H 21.0-31.0 MMOL/L Arterial Blood Oxygen Saturation 98 94-100 % Arterial Blood Base Excess 5.0 H -2.5-2.5 MMOL/L Gurwinder Test YES-POS Blood Gas Ventilator Setting NO Blood Gas Inspired Oxygen 6 L My Orders Orders - PRITI ANDERS CONSUMER RELATIONS SPECIALIST Cbc With Automated Diff (12/28/18 14:30) Comprehensive Metabolic Panel (12/28/18 14:30) Troponin I (12/28/18 14:30) BNP (12/28/18 14:30) Albuterol/Ipra Inhalation Soln (Duoneb I (12/28/18 14:30) Svn Small Volume Nebulizer (12/28/18 14:30) Ed Iv/Invasive Line Start (12/28/18 14:30) Chest 1 View, Ap/Pa Only (12/28/18 14:30) Methylprednisolone Sod Succ (Solu-Medrol (12/28/18 14:45) Manual Differential (12/28/18 14:34) Arterial Blood Gas (12/28/18 14:47) Ns Iv 1000 Ml (Sodium Chloride 0.9%) (12/28/18 15:15) Arterial Blood Draw (12/28/18 14:56) Insulin (Regular) Human (Humulin R (Per (12/28/18 15:30) D50w (Emergency) Syringe (Dextrose 50% 5 (12/28/18 15:30) Furosemide Injection (Lasix Injection) (12/28/18 16:30) Medications Given in ED Current Medications Medications Dose Ordered Sig/Mayra Route Start Time Stop Time Status Last Admin Dose Admin Albuterol/ Ipratropium 3 ml ONCE ONCE INH 12/28/18 14:30 12/28/18 14:33 DC 12/28/18 14:47 3 ML Methylprednisolone Sodium Succinate 125 mg ONCE ONCE IVP 12/28/18 14:45 12/28/18 14:46 DC 12/28/18 15:08 125 MG Vital Signs/I&O 12/28/18 12/28/18 14:27 14:59 Temp 37.3 Pulse 71 Resp 30 B/P (MAP) 154/72 (99) Pulse Ox 96 97 O2 Delivery Nasal Cannula Nasal Cannula O2 Flow Rate 6.00 6.00 Capillary Refill : Departure Impression Primary Impression: COPD exacerbation Additional Impressions: Right lower lobe pneumonia Qualified Codes: J18.1 - Lobar pneumonia, unspecified organism Obesity Disposition: 09 ADMITTED INPATIENT Condition: Stable Admissions Decision to Admit Reason: Admit from ER (General) Decision to Admit/Date: Dec 28, 2018 Time/Decision to Admit Time: 16:26 Departure-Patient Inst. Referrals: EB ALEXIS MD (PCP/Family) Primary Care Physician PRITI ANDERS APRN Dec 28, 2018 14:35
[2018-12-28] MEDS ORDERED: methylPREDNISolone 125 MG (Solu-MEDROL) VIAL IVP ONE (14:45)
[2018-12-28 14:48] LABS: BASOPHILS % (AUTO) 0 % (0-10); EOSINOPHILS # (AUTO) 0.1 10^3/uL (0.0-0.3); EOSINOPHILS % (AUTO) 1 % (0-10); HEMATOCRIT 31 % (40-54); HEMOGLOBIN 9.7 G/DL (13.3-17.7); LYMPHOCYTES # (AUTO) 0.4 X 10^3 (1.0-4.0); LYMPHOCYTES % (AUTO) 4 % (12-44); MEAN CORPUSCULAR HEMOGLOBIN 30 PG (25-34); MEAN CORPUSCULAR HGB CONC 31 G/DL (32-36); MEAN CORPUSCULAR VOLUME 96 FL (80-99); MEAN PLATELET VOLUME 9.4 FL (7.4-10.4); MONOCYTES # (AUTO) 0.5 X 10^3 (0.0-1.0); MONOCYTES % (AUTO) 5 % (0-12); NEUTROPHILS # (AUTO) 9.3 X 10^3 (1.8-7.8); NEUTROPHILS % (AUTO) 90 % (42-75); PLATELET COUNT 251 10^3/uL (130-400); WHITE BLOOD COUNT 10.4 10^3/uL (4.3-11.0)
[2018-12-28 15:04] LABS: ABG OXYGEN SATURATION 98 % (94-100); ABG PCO2 54 MMHG (35-45); ABG PH 7.36 (7.37-7.43); ABG PO2 103 MMHG (79-93); ABG TCO2 31.9 MMOL/L (21.0-31.0); ALLENS TEST YES-POS; INSPIRED O2 6 L; PATIENT TEMP 36.7; VENTILATOR NO
[2018-12-28 15:09] LABS: ALANINE AMINOTRANSFERASE 49 U/L (0-55); ALBUMIN 3.6 GM/DL (3.2-4.5); ALKALINE PHOSPHATASE 50 U/L (40-136); BILIRUBIN,TOTAL 0.6 MG/DL (0.1-1.0); BUN/CREATININE RATIO 38; CALCIUM 8.5 MG/DL (8.5-10.1); CARBON DIOXIDE 31 MMOL/L (21-32); CHLORIDE 108 MMOL/L (98-107); CREATININE SERUM 1.57 MG/DL (0.60-1.30); GFR ESTIMATED 45; GLUCOSE 121 MG/DL (70-105); SODIUM 143 MMOL/L (135-145); TOTAL PROTEIN 6.5 GM/DL (6.4-8.2)
[2018-12-28] MEDS ORDERED: NS IV 1000 ML 1,000 ML IV SCH (15:15)
[2018-12-28 15:16] LABS: POTASSIUM 6.3 MMOL/L (3.6-5.0)
[2018-12-28 15:20] LABS: BAND NEUTROPHILS 2 %; BASOPHILS % (MANUAL) 0 %; EOSINOPHILS % (MANUAL) 0 %; LYMPHOCYTES % (MANUAL) 3 %; MONOCYTES % (MANUAL) 3 %; NEUTROPHILS % (MANUAL) 92 %
[2018-12-28 15:21] LABS: ANISOCYTOSIS SLIGHT; HELMET/BITE CELLS SLIGHT; HYPOCHROMASIA SLIGHT; POIKILOCYTOSIS SLIGHT; POLYCHROMASIA SLIGHT
--- NOTE | 2018-12-28 15:21 | Diagnostic Imaging Report ---
INDICATION: Shortness of air. TIME OF EXAM: 3:02 p.m. COMPARISON: Correlation is made with prior chest from 12/24/2018. FINDINGS: The heart is enlarged. There is central congestion and prominent interstitial changes suggestive of CHF. Some greater density in the right base which may represent some airspace infiltrate. No effusion or pneumothorax is seen. IMPRESSION: Congestive changes in both lungs, as described. Dictated by: Dictated on workstation # [id number]
[2018-12-28] MEDS ORDERED: DEXTROSE 50% 50 ML (IMS) SYR IV ONE (15:30)
[2018-12-28] MEDS ORDERED: inSUlin (REGULAR) HUMAN 1 UNIT/0.01 ML (CHARGE PER UNIT) IV ONE (15:30)
[2018-12-28] MEDS ORDERED: FUROSEMIDE 40 MG/4 ML INJ (LASIX) IVP ONE (16:30)
[2018-12-28 17:15] VITALS: BP 171/75
[2018-12-28] MEDS ORDERED: FLU QUADRIvalent (5+ YOA) 2019-2020 (AFLURIA) 0.5 ML IM ONE (18:30)
[2018-12-28 18:50] LABS: BASOPHILS % (AUTO) 0 % (0-10); EOSINOPHILS % (AUTO) 0 % (0-10); HEMATOCRIT 31 % (40-54); HEMOGLOBIN 9.4 G/DL (13.3-17.7); LYMPHOCYTES # (AUTO) 0.3 X 10^3 (1.0-4.0); LYMPHOCYTES % (AUTO) 4 % (12-44); MEAN CORPUSCULAR HEMOGLOBIN 29 PG (25-34); MEAN CORPUSCULAR HGB CONC 31 G/DL (32-36); MEAN CORPUSCULAR VOLUME 95 FL (80-99); MEAN PLATELET VOLUME 9.7 FL (7.4-10.4); MONOCYTES # (AUTO) 0.3 X 10^3 (0.0-1.0); MONOCYTES % (AUTO) 3 % (0-12); NEUTROPHILS # (AUTO) 8.9 X 10^3 (1.8-7.8); NEUTROPHILS % (AUTO) 93 % (42-75); PLATELET COUNT 256 10^3/uL (130-400); RED CELL DISTRIBUTION WIDTH 15.9 % (10.0-14.5); WHITE BLOOD COUNT 9.5 10^3/uL (4.3-11.0)
--- NOTE | 2018-12-28 19:03 | Diagnostic Imaging Report ---
INDICATION: Shortness of air. TIME OF EXAM: 6:55 PM COMPARISON: Correlation is made with prior chest earlier same day. FINDINGS: The heart remains enlarged. Congestive changes are improved. There is some residual infiltrate in the right base. There is likely some residual pleural fluid bilaterally. No pneumothorax is seen. IMPRESSION: Improving congestive changes when compared with exam earlier the same day. Dictated by: Dictated on workstation # [id number]
[2018-12-28 19:05] LABS: CALCIUM 8.6 MG/DL (8.5-10.1); CREATININE SERUM 1.51 MG/DL (0.60-1.30); POTASSIUM 5.9 MMOL/L (3.6-5.0)
[2018-12-28] MEDS ORDERED: RT-ALBUTEROL/IPRATROPIUM 3 ML (DUONEB) VIAL ONE (19:23)
[2018-12-28] MEDS ORDERED: RT-ALBUTEROL/IPRATROPIUM 3 ML (DUONEB) VIAL INH PRN ×2 (19:30→22:15)
[2018-12-28] MEDS: SOD POLYSTERENE 15 GM/60 ML (KAYEXALATE) UNIT DOSE PO SCH (19:47)
[2018-12-28 20:00] VITALS: BP 170/68
[2018-12-28] MEDS ORDERED: PIPERACILLIN/TAZOBACTAM 4.5 GM in NS (IVPB) 100 ML IV NR (20:09)
[2018-12-28] MEDS ORDERED: AZITHROMYCIN 500 MG/NS 250 ML IVPB IV SCH ×2 (20:11)
--- NOTE | 2018-12-28 21:22 | NUR ---
CALLED DR. SHAFER AND INFORMED HER THAT PATIENT STATES THAT HE USES A BIPAP AT NIGHT BUT THAT HE DOES NOT HAVE IT HERE WITH HIM. RECEIVED ORDER FOR PATIENT TO USE HOSPITAL BIPAP AND FOR RT TO TITRATE AND TO ENCOURAGE PATIENT TO HAVE FAMILY BRING IN HOME BIPAP TOMORROW. PATIENT STATES THAT "IT WILL BE NO PROBLEM FOR THEM TO BRING IT IN".
[2018-12-28] MEDS ORDERED: RT-ALBUTEROL/IPRATROPIUM 3 ML (DUONEB) VIAL INH SCH (22:00)
[2018-12-28] MEDS ORDERED: NS (IVPB) 100 ML ONE (23:20)
[2018-12-28] MEDS ORDERED: PIPERACILLIN/TAZO 4.5 GM VIAL (ZOSYN) IV ONE (23:20)
[2018-12-28] MEDS: methylPREDNISolone 40 MG/ML (Solu-MEDROL) VIAL IV SCH (23:34)
[2018-12-29] VITALS: BP 174/78
[2018-12-29] MEDS: RT-ALBUTEROL/IPRATROPIUM 3 ML (DUONEB) VIAL INH SCH ×6 (01:14→22:23)
[2018-12-29] MEDS ORDERED: PIPERACILLIN/TAZO 4.5 GM VIAL (ZOSYN) IV ONE (02:36)
[2018-12-29] MEDS ORDERED: NS (IVPB) 100 ML ONE (02:37)
[2018-12-29] MEDS: SOD POLYSTERENE 15 GM/60 ML (KAYEXALATE) UNIT DOSE PO SCH ×2 (02:55→11:18)
[2018-12-29] MEDS: PIPERACILLIN/TAZO 4.5 GM/NS 100 ML IV SCH ×6 (02:56→17:35)
[2018-12-29 04:00] VITALS: BP 173/80
[2018-12-29] MEDS: FUROSEMIDE 40 MG/4 ML INJ (LASIX) IV SCH (07:28)
[2018-12-29] MEDS: methylPREDNISolone 40 MG/ML (Solu-MEDROL) VIAL IV SCH ×3 (07:28→22:07)
[2018-12-29 08:00] VITALS: BP 164/76
[2018-12-29] MEDS: inSUlin ASPART (NovoLOG) 1 UNIT/0.01 ML (CHARGE PER UNIT) SC SCH ×4 (08:21→21:22)
[2018-12-29] MEDS ORDERED: AMIO200T4 PO (10:11)
[2018-12-29] MEDS ORDERED: POTA-51 PO (10:11)
[2018-12-29] MEDS ORDERED: DILT240C53 PO (10:11)
[2018-12-29] MEDS ORDERED: LOSA50TA63 PO (10:11)
[2018-12-29] MEDS ORDERED: PRD20T PO (10:11)
[2018-12-29] MEDS ORDERED: ATOR10TA66 PO (10:11)
[2018-12-29] MEDS ORDERED: IPRA3AMP31 NEB (10:11)
--- NOTE | 2018-12-29 10:13 | NUR ---
SPOKE WITH THE PATIENT ABOUT HIS MEDICATIONS. HE STATES HE HAS BEEN FOLLOWING HIS DISCHARGE INSTRUCTIONS FROM REHAB FROM [facility] THIS MONTH EXACTLY EXCEPT FOR THE ELIQUIS. HE DID NOT FILLED THE ELIQUIS BECAUSE IT WAS TOO EXPENSIVE. HE STATES HE WAS TOLD BY DR. SANTACRUZ'S OFFICE IF HE CAME IN THEY WOULD GET SOME PAPERWORK SIGNED AND A VOUCHER FOR HIM BUT HE STATES HE HAD AN ANXIETY ATTACK AND COULD NOT MAKE IT IN TO THE OFFICE. I VERIFIED WITH DILLOOLESYA THE FOLLOWING MEDICATIONS WERE FILLED: 12-20-18 DUONEB Q4H PRN 12-20-18 LOSARTAN 50MG 2 DAILY #60 12-20-18 LIPITOR 10MG HS #30 12-20-18 AMIODARONE 200MG BID #60 12-20-18 PREDNISONE 20MG 2 DAILY #30 (HAS NOT FINISHED YET) 12-20-18 CARTIA XT 240MG DAILY #30 12-20-18 POTASSIUM 20MEQ DAILY #30 ELIQUIS (NOT PICKED UP) [facility] HAS NOT FILLED ANYTHING FOR HIM SINCE WHAT I REPORTED AT HIS PREVIOUS ADMISSION ON 11-10-18. HE HAS CONTINUED TO TAKE THE METOPROLOL AND DICLOFENAC, HE HAS NOT REFILLED THEM BUT STATES HE HAD A SUPPLY LEFT FROM WHEN HE WAS ADMITTED. HE STILL TAKES HIS ASPIRIN, FISH OIL, AND VITAMIN PACK DAILY OTC. METFORMIN, INVOKANA, AND VICTOZA WERE STOPPED AT HIS LAST DISCHARGE. AND HIS LIPITOR DOSE WAS DECREASED.
[2018-12-29 12:00] VITALS: BP 157/79
--- NOTE | 2018-12-29 15:43 | History & Physical ---
HPI History of Present Illness: 63 yo M that presents increasing shortness of breath that did not improve with multiple breathing treatments. When he arrived to ER he was satting upper 80s and was having increased work of breathing. Denies any recent diet changes. Has not noticed increase in swelling. Denies any fever or chills. Denies any sick contacts but was recently in the hospital with exacerbation. No med changes. Denies any chest pains. Source: patient Exam Limitations: no limitations Date seen by provider: Dec 29, 2018 Time Seen by Provider: 10:00 Attending Physician Moriah Cortez MD PCP Eb Alexis MD Consult Date of Admission Dec 28, 2018 at 16:21 Home Medications Home Medications Reviewed patient Home Medication Reconciliation performed by pharmacy medication reconciliations certified technician specialist and/or nursing. Patients Allergies have been reviewed. Allergies Coded Allergies: NKANo Known Allergies (Verified Allergy, Unknown, 05/15/05) TQA-Bolchs-Jjpnzl Hx Patient Social History Alcohol Use: Occasionally Uses Recreational Drug Use: No Smoking Status: Former Smoker Former smoker/When Quit: Mar 16, 2004 Type Used: Cigarettes Recent Foreign Travel: No Contact w/other who traveled: No Recent Hopitalizations: Yes (12/04/18-12/20/18 FOR PNEUMONIA/COPD/AFIB/LEG CELLULITIS/SEPSIS) Recent Infectious Disease Expo: No Immunizations Up To Date Tetanus Booster (TDap): More than 5yrs Past Medical History Past Medical History 1. DM- uncontrolled 2. Hypertension 3. Hyperlipidemia 4. CAD- with coronary ectasia and slow flow no obstructive coronary artery disease Dr. Lopez Cath 08/28 5. Obesity Past Surgical History 1. Incisional Hernia Repair with prior umbilical hernia repair. 2. Cardiac Cath 08/28 -[facility] Family Medical History Family History: Diabetes mellitus 19 FATHER G8 BROTHER Hypertension G8 BROTHER Myocardial infarction 19 FATHER, Onset:50's - 60 Review of Systems (CHC) Constitutional: No chills, No fever; malaise EENTM: no symptoms reported; No mouth pain, No mouth swelling, No nose congestion, No nose pain Respiratory: cough, dyspnea on exertion; No orthopnea; short of breath Cardiovascular: no symptoms reported; No chest pain, No edema, No palpitations Gastrointestinal: no symptoms reported; No abdominal pain, No constipation, No diarrhea, No loss of appetite, No nausea, No vomiting Genitourinary: no symptoms reported; No dysuria, No frequency, No hematuria Musculoskeletal: no symptoms reported; No back pain, No joint pain, No muscle pain Skin: no symptoms reported; No lesions, No rash Psychiatric/Neurological: No Symptoms Reported; Denies Headache, Denies Numbness, Denies Weakness Reviewed Test Results Reviewed Test Results Lab Laboratory Tests Test 12/28/18 18:35 12/29/18 15:35 Range/Units White Blood Count 9.5 4.3-11.0 10^3/uL Red Blood Count 3.23 L 4.35-5.85 10^6/uL Hemoglobin 9.4 L 13.3-17.7 G/DL Hematocrit 31 L 40-54 % Mean Corpuscular Volume 95 80-99 FL Mean Corpuscular Hemoglobin 29 25-34 PG Mean Corpuscular Hemoglobin Concent 31 L 32-36 G/DL Red Cell Distribution Width 15.9 H 10.0-14.5 % Platelet Count 256 130-400 10^3/uL Mean Platelet Volume 9.7 7.4-10.4 FL Neutrophils (%) (Auto) 93 H 42-75 % Lymphocytes (%) (Auto) 4 L 12-44 % Monocytes (%) (Auto) 3 0-12 % Eosinophils (%) (Auto) 0 0-10 % Basophils (%) (Auto) 0 0-10 % Neutrophils # (Auto) 8.9 H 1.8-7.8 X 10^3 Lymphocytes # (Auto) 0.3 L 1.0-4.0 X 10^3 Monocytes # (Auto) 0.3 0.0-1.0 X 10^3 Eosinophils # (Auto) 0.0 0.0-0.3 10^3/uL Basophils # (Auto) 0.0 0.0-0.1 10^3/uL Sodium Level 142 135-145 MMOL/L Potassium Level 5.9 H 3.6-5.0 MMOL/L Chloride Level 106 98-107 MMOL/L Carbon Dioxide Level 30 21-32 MMOL/L Anion Gap 6 5-14 MMOL/L Blood Urea Nitrogen 57 H 7-18 MG/DL Creatinine 1.51 H 0.60-1.30 MG/DL Estimat Glomerular Filtration Rate 47 BUN/Creatinine Ratio 38 Glucose Level 98 70-105 MG/DL Lactic Acid Level 0.57 0.50-2.00 MMOL/L Calcium Level 8.6 8.5-10.1 MG/DL Physical Exam-(CHC) Physical Exam Vital Signs VS - Last 72 Hours, by Label 12/28/18 12/28/18 12/28/18 12/28/18 14:27 14:59 16:58 17:15 Temp 37.3 36.7 Pulse 71 66 70 Resp 30 18 22 B/P (MAP) 154/72 (99) 157/79 171/75 (107) Pulse Ox 96 97 94 92 O2 Delivery Nasal Cannula Nasal Cannula Nasal Cannula Nasal Cannula O2 Flow Rate 6.00 6.00 3.00 4.00 12/28/18 12/28/18 12/28/18 12/28/18 19:15 19:28 20:00 20:00 Temp 36.4 Pulse 71 Resp 22 B/P (MAP) 170/68 (102) Pulse Ox 95 95 94 95 O2 Delivery Nasal Cannula Nasal Cannula Nasal Cannula O2 Flow Rate 4.00 4.00 4.00 12/28/18 12/28/18 12/29/18 12/29/18 21:00 22:17 00:00 00:00 Temp 36.6 Pulse 70 Resp 22 B/P (MAP) 174/78 (110) Pulse Ox 94 94 95 95 O2 Delivery Nasal Cannula Nasal Cannula Nasal Cannula Nasal Cannula O2 Flow Rate 4.00 4.00 4.00 4.00 12/29/18 12/29/18 12/29/18 12/29/18 01:14 01:22 04:00 04:00 Temp 36.3 Pulse 70 74 Resp 20 B/P (MAP) 173/80 (111) Pulse Ox 94 98 96 O2 Delivery Nasal Cannula NIV Bilevel Nasal Cannula O2 Flow Rate 4.00 4.00 4.00 FiO2 40 12/29/18 12/29/18 12/29/18 12/29/18 06:59 08:00 08:00 09:00 Temp 36.2 Pulse 76 Resp 20 B/P (MAP) 164/76 (105) Pulse Ox 96 98 94 O2 Delivery Nasal Cannula NIV Bilevel Nasal Cannula Nasal Cannula O2 Flow Rate 4.00 4.00 4.00 4.00 FiO2 40 12/29/18 12/29/18 12/29/18 12/29/18 10:22 12:00 12:00 15:15 Temp 36.6 Pulse 79 Resp 19 B/P (MAP) 157/79 (105) Pulse Ox 93 97 88 O2 Delivery Nasal Cannula Nasal Cannula NIV Bilevel Nasal Cannula O2 Flow Rate 4.00 4.00 4.00 4.00 FiO2 40 Capillary Refill : Greater Than 3 Seconds General Appearance: WD/WN, mild distress (with minimal activity) HEENT: PERRL/EOMI Neck: non-tender, full range of motion, supple Respiratory: lungs clear, no accessory muscle use, decreased breath sounds; No crackles, No rhonchi; wheezing Cardiovascular: normal peripheral pulses, regular rate, rhythm, no edema, no murmur Gastrointestinal: normal bowel sounds, non tender, soft, no organomegaly Back: no CVA tenderness, no vertebral tenderness Extremities: normal range of motion, non-tender, no calf tenderness, normal capillary refill, pedal edema (1+ bilateral) Neurologic/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: 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, no motor/sensory deficits, alert, normal mood/affect, oriented x 3, other (up walking without assistive devices) Skin: normal color, warm/dry Lymphatic: no adenopathy Assessment/Plan Assessment/Plan Admission Status: Inpatient Order (span 2 midnights) Reason for Inpatient Admission: Patient requiring increased oxygen and needs IV antibiotics (1) COPD exacerbation Status: Acute Assessment & Plan: - MAT protocol, steroids and IV antibiotics, encourage ambulation and IS, titrate oxygen as tolerated (2) CKD (chronic kidney disease) Status: Chronic Assessment & Plan: - At baseline, repeat BMP in AM Qualifiers: Qualified Codes: N18.3 - Chronic kidney disease, stage 3 (moderate) (3) Normocytic anemia Status: Chronic Assessment & Plan: - Seems to be at baseline, needs outpatient workup (4) LUIGI treated with BiPAP Status: Chronic (5) Diabetes mellitus with hyperglycemia Status: Chronic Assessment & Plan: - Blood sugars controlled, Accucheck AC/HS Qualifiers: Qualified Codes: E11.65 - Type 2 diabetes mellitus with hyperglycemia; 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
[2018-12-29 16:00] VITALS: BP 160/79
[2018-12-29 16:06] LABS: CALCIUM 8.2 MG/DL (8.5-10.1); CREATININE SERUM 1.74 MG/DL (0.60-1.30); POTASSIUM 5.1 MMOL/L (3.6-5.0)
[2018-12-29] MEDS: ENOXAPARIN 60 MG/0.6 ML (LOVENOX) SYR SC SCH (16:16)
[2018-12-29 20:00] VITALS: BP 164/75
[2018-12-29] MEDS: AZITHROMYCIN 250 MG TAB (ZITHROMAX) PO SCH (21:22)
[2018-12-29] MEDS: AMIODARONE 200 MG (CORDARONE) TAB PO SCH (21:22)
[2018-12-30] VITALS (7 sets, daily range): BP systolic 131–171; BP diastolic 73–90
[2018-12-30] MEDS: RT-ALBUTEROL/IPRATROPIUM 3 ML (DUONEB) VIAL INH SCH ×6 (02:15→22:07)
[2018-12-30] MEDS ORDERED: PIPERACILLIN/TAZO 4.5 GM VIAL (ZOSYN) IV ONE (02:37)
[2018-12-30] MEDS ORDERED: NS (IVPB) 100 ML ONE (02:38)
[2018-12-30] MEDS: PIPERACILLIN/TAZO 4.5 GM/NS 100 ML IV SCH ×6 (02:49→17:40)
[2018-12-30 03:42] LABS: BASOPHILS % (AUTO) 0 % (0-10); EOSINOPHILS % (AUTO) 0 % (0-10); HEMATOCRIT 29 % (40-54); HEMOGLOBIN 9.2 G/DL (13.3-17.7); LYMPHOCYTES # (AUTO) 0.3 X 10^3 (1.0-4.0); LYMPHOCYTES % (AUTO) 3 % (12-44); MEAN CORPUSCULAR HEMOGLOBIN 30 PG (25-34); MEAN CORPUSCULAR HGB CONC 31 G/DL (32-36); MEAN CORPUSCULAR VOLUME 94 FL (80-99); MEAN PLATELET VOLUME 10.1 FL (7.4-10.4); MONOCYTES # (AUTO) 0.5 X 10^3 (0.0-1.0); MONOCYTES % (AUTO) 4 % (0-12); NEUTROPHILS # (AUTO) 11.1 X 10^3 (1.8-7.8); NEUTROPHILS % (AUTO) 93 % (42-75); PLATELET COUNT 234 10^3/uL (130-400); RED CELL DISTRIBUTION WIDTH 15.4 % (10.0-14.5); WHITE BLOOD COUNT 11.9 10^3/uL (4.3-11.0)
[2018-12-30 04:11] LABS: ALBUMIN 3.3 GM/DL (3.2-4.5); BILIRUBIN,TOTAL 0.5 MG/DL (0.1-1.0); CREATININE SERUM 1.76 MG/DL (0.60-1.30); POTASSIUM 4.4 MMOL/L (3.6-5.0)
[2018-12-30] MEDS: methylPREDNISolone 40 MG/ML (Solu-MEDROL) VIAL IV SCH (06:05)
[2018-12-30] MEDS: FUROSEMIDE 40 MG/4 ML INJ (LASIX) IV SCH (06:05)
[2018-12-30] MEDS: inSUlin ASPART (NovoLOG) 1 UNIT/0.01 ML (CHARGE PER UNIT) SC SCH ×4 (06:05→21:25)
[2018-12-30] MEDS: ENOXAPARIN 60 MG/0.6 ML (LOVENOX) SYR SC SCH ×2 (06:05→16:26)
[2018-12-30] MEDS: AMIODARONE 200 MG (CORDARONE) TAB PO SCH ×2 (09:45→21:25)
[2018-12-30] MEDS: ASPIRIN E.C. 81 MG (ECOTRIN) TAB PO SCH (09:46)
[2018-12-30] MEDS: meTOproloL SUCCINATE 50 MG (TOPROL XL) TAB PO SCH (09:46)
[2018-12-30] MEDS: DILTIAZEM 240 MG (CARDIZEM CD) CAP PO SCH (09:46)
[2018-12-30] MEDS: LOSARTAN 100 MG (COZAAR) TABLET PO SCH (09:46)
--- NOTE | 2018-12-30 11:20 | NUR ---
Pastoral care visit.
[2018-12-30] MEDS ORDERED: inSUlin ASPART (NovoLOG) 1 UNIT/0.01 ML (CHARGE PER UNIT) SC NR (11:45)
[2018-12-30] MEDS ORDERED: inSUlin (REGULAR) HUMAN 1 UNIT/0.01 ML (CHARGE PER UNIT) SC ONE (11:45)
--- NOTE | 2018-12-30 16:32 | Progress Note ---
Subjective Subjective/Events-last exam Patient doing much better this AM. He is up walking around and is on 3 L. Patient's baseline is 4L. Still has some significant LE swelling. + BM. Tolerating PO diet. Review of Systems Pulmonary: Dyspnea (with ambulation) Cardiovascular: No: Chest Pain, Palpitations Gastrointestinal: No: Nausea, Vomiting, Abdominal Pain Neurological: Weakness Focused Exam Lactate Level 12/28/18 18:35: Lactic Acid Level 0.57 Objective Exam Last Set of Vital Signs Vital Signs Date Time Temp Pulse Resp B/P (MAP) Pulse Ox O2 Delivery O2 Flow Rate FiO2 12/30/18 16:00 Nasal Cannula 3.00 12/30/18 15:36 36.7 69 17 151/75 (100) 96 12/30/18 00:00 40 Capillary Refill : Greater Than 3 Seconds I&O Intake and Output 12/29/18 23:59 Intake Total 3020 ml Balance 3020 ml Intake Oral 2530 ml IV Total 490 ml # Voids 14 # Bowel Movements 5 General: Alert, Oriented X3, Cooperative, No Acute Distress Lungs: Clear to Auscultation, Normal Air Movement, Other (increased work of breathing with ambulation) Heart: Regular Rate, No Murmurs Abdomen: Normal Bowel Sounds, Soft, No Tenderness, No Masses Extremities: Other (3+ pitting edema bilaterally) Skin: No Rashes, No Breakdown Neuro: Cranial Nerves 3-12 NL Psych/Mental Status: Mental Status NL, Mood NL Results/Procedures Lab Laboratory Tests 12/30/18 03:25: Sodium Level 142, Potassium Level 4.4, Chloride Level 102, Carbon Dioxide Level 29, Anion Gap 11, Blood Urea Nitrogen 61H, Creatinine 1.76H, Estimat Glomerular Filtration Rate 39, BUN/Creatinine Ratio 35, Glucose Level 345H, Calcium Level 8.0L, Corrected Calcium 8.6, Total Bilirubin 0.5, Aspartate Amino Transf (AST/SGOT) 12, Alanine Aminotransferase (ALT/SGPT) 34, Alkaline Phosphatase 47, Total Protein 6.0L, Albumin 3.3 12/30/18 03:35: White Blood Count 11.9H, Red Blood Count 3.12L, Hemoglobin 9.2L, Hematocrit 29L, Mean Corpuscular Volume 94, Mean Corpuscular Hemoglobin 30, Mean Corpuscular Hemoglobin Concent 31L, Red Cell Distribution Width 15.4H, Platelet Count 234, Mean Platelet Volume 10.1, Neutrophils (%) (Auto) 93H, Lymphocytes (%) (Auto) 3L , Monocytes (%) (Auto) 4, Eosinophils (%) (Auto) 0, Basophils (%) (Auto) 0, Neutrophils # (Auto) 11.1H, Lymphocytes # (Auto) 0.3L, Monocytes # (Auto) 0.5, Eosinophils # (Auto) 0.0, Basophils # (Auto) 0.0 12/30/18 11:12: Glucometer 464*H 12/30/18 15:34: Glucometer 305H Microbiology 12/28/18 Blood Culture - Preliminary, Resulted No growth Assessment/Plan Assessment/Plan (1) COPD exacerbation Status: Acute Assessment & Plan: - MAT protocol, steroids and IV antibiotics, encourage ambulation and IS, titrate oxygen as tolerated 12/30: Switch steroids to PO, continue antibiotics, encouraged patient to continue pulm rehab as an outpatient (2) CKD (chronic kidney disease) Status: Chronic Assessment & Plan: - At baseline, repeat BMP in AM 12/30: Continues to be at baseline with diuresis Qualifiers: Qualified Codes: N18.3 - Chronic kidney disease, stage 3 (moderate) (3) Normocytic anemia Status: Chronic Assessment & Plan: - Seems to be at baseline, needs outpatient workup (4) LUIGI treated with BiPAP Status: Chronic (5) Diabetes mellitus with hyperglycemia Status: Chronic Assessment & Plan: - Blood sugars controlled, Accucheck AC/HS 12/30: Restarted levemir and novolog today Qualifiers: Qualified Codes: E11.65 - Type 2 diabetes mellitus with hyperglycemia; Z79.4 - alf (current) use of insulin (6) Hyperkalemia Status: Acute (7) Obesity hypoventilation syndrome (8) DVT prophylaxis Status: Acute Assessment & Plan: - Lovenox Clinical Quality Measures DVT/VTE Risk/Contraindication: Risk Factor Score Per Nursin RFS Level Per Nursing on Admit: 4+=Very High NANDA SHAFER MD Dec 30, 2018 16:31
[2018-12-30] MEDS: predniSONE 20 MG TAB PO SCH (17:22)
[2018-12-30] MEDS: predniSONE 10 MG TAB PO SCH (17:23)
--- NOTE | 2018-12-30 17:24 | NUR ---
REPORT FROM [facility] AT THIS TIME. Addendum: 12/30/18 at 1733 by BERNA BEACH RN SPELLING ERROR: THE WORD SHOULD BE FROM NOT [facility].
--- NOTE | 2018-12-30 17:32 | NUR ---
PATIENT TO FLOOR AT THIS TIME, ACCOMPANIED BY RT AND PCT FROM ICU.
[2018-12-30] MEDS: AZITHROMYCIN 250 MG TAB (ZITHROMAX) PO SCH (21:25)
[2018-12-31] VITALS: BP 185/87
[2018-12-31] MEDS: RT-ALBUTEROL/IPRATROPIUM 3 ML (DUONEB) VIAL INH SCH ×4 (01:24→14:25)
[2018-12-31] MEDS: PIPERACILLIN/TAZO 4.5 GM/NS 100 ML IV SCH ×2 (03:19)
[2018-12-31] MEDS: ENOXAPARIN 60 MG/0.6 ML (LOVENOX) SYR SC SCH (04:21)
[2018-12-31 04:49] VITALS: BP 162/77
[2018-12-31 05:33] LABS: BASOPHILS % (AUTO) 0 % (0-10); EOSINOPHILS % (AUTO) 0 % (0-10); HEMATOCRIT 29 % (40-54); HEMOGLOBIN 8.8 G/DL (13.3-17.7); LYMPHOCYTES # (AUTO) 0.4 X 10^3 (1.0-4.0); LYMPHOCYTES % (AUTO) 3 % (12-44); MEAN CORPUSCULAR HEMOGLOBIN 29 PG (25-34); MEAN CORPUSCULAR HGB CONC 31 G/DL (32-36); MEAN CORPUSCULAR VOLUME 94 FL (80-99); MEAN PLATELET VOLUME 9.1 FL (7.4-10.4); MONOCYTES % (AUTO) 8 % (0-12); NEUTROPHILS # (AUTO) 10.4 X 10^3 (1.8-7.8); NEUTROPHILS % (AUTO) 89 % (42-75); PLATELET COUNT 232 10^3/uL (130-400); RED CELL DISTRIBUTION WIDTH 15.6 % (10.0-14.5); WHITE BLOOD COUNT 11.7 10^3/uL (4.3-11.0)
[2018-12-31 05:52] LABS: ALBUMIN 3.2 GM/DL (3.2-4.5); BILIRUBIN,TOTAL 0.4 MG/DL (0.1-1.0); CREATININE SERUM 1.95 MG/DL (0.60-1.30); POTASSIUM 4.2 MMOL/L (3.6-5.0); TOTAL PROTEIN 5.9 GM/DL (6.4-8.2)
[2018-12-31] MEDS ORDERED: inSUlin ASPART (NovoLOG) 1 UNIT/0.01 ML (CHARGE PER UNIT) SC SCH (06:00)
[2018-12-31] MEDS: predniSONE 10 MG TAB PO SCH (06:15)
[2018-12-31] MEDS: FUROSEMIDE 40 MG/4 ML INJ (LASIX) IV SCH (06:15)
[2018-12-31] MEDS: inSUlin ASPART (NovoLOG) 1 UNIT/0.01 ML (CHARGE PER UNIT) SC SCH (06:15)
[2018-12-31] MEDS: predniSONE 20 MG TAB PO SCH (06:15)
[2018-12-31 08:00] VITALS: BP 161/73
[2018-12-31] MEDS: meTOproloL SUCCINATE 50 MG (TOPROL XL) TAB PO SCH (08:06)
[2018-12-31] MEDS: LOSARTAN 100 MG (COZAAR) TABLET PO SCH (08:06)
[2018-12-31] MEDS: AMIODARONE 200 MG (CORDARONE) TAB PO SCH (08:06)
[2018-12-31] MEDS: DILTIAZEM 240 MG (CARDIZEM CD) CAP PO SCH (08:06)
[2018-12-31] MEDS: ASPIRIN E.C. 81 MG (ECOTRIN) TAB PO SCH (08:07)
--- NOTE | 2018-12-31 11:58 | Discharge Summary ---
Diagnosis/Chief Complaint Date of Admission Dec 28, 2018 at 16:21 Date of Discharge Discharge Diagnosis Problems/Diagnosis: (1) COPD exacerbation Assessment & Plan: - MAT protocol, steroids and IV antibiotics, encourage ambulation and IS, titrate oxygen as tolerated 12/30: Switch steroids to PO, continue antibiotics, encouraged patient to continue pulm rehab as an outpatient Status: Acute (2) CKD (chronic kidney disease) Assessment & Plan: - At baseline, repeat BMP in AM 12/30: Continues to be at baseline with diuresis Qualifiers: Qualified Codes: N18.3 - Chronic kidney disease, stage 3 (moderate) Status: Chronic (3) Normocytic anemia Assessment & Plan: - Seems to be at baseline, needs outpatient workup Status: Chronic (4) LUIGI treated with BiPAP Status: Chronic (5) Diabetes mellitus with hyperglycemia Assessment & Plan: - Blood sugars controlled, Accucheck AC/HS 12/30: Restarted levemir and novolog today Qualifiers: Qualified Codes: E11.65 - Type 2 diabetes mellitus with hyperglycemia; Z79.4 - MCC (current) use of insulin Status: Chronic (6) Hyperkalemia Status: Acute (7) Obesity hypoventilation syndrome (8) DVT prophylaxis Assessment & Plan: - Lovenox Status: Acute Chief Complaint/HPI Chief Complaint/HPI 63 yo M that presents increasing shortness of breath that did not improve with multiple breathing treatments. When he arrived to ER he was satting upper 80s and was having increased work of breathing. Denies any recent diet changes. Has not noticed increase in swelling. Denies any fever or chills. Denies any sick contacts but was recently in the hospital with exacerbation. No med changes. Denies any chest pains. Discharge Summary-Simple/Stand Consultations Discharge Physical Examination Allergies: Coded Allergies: NKANo Known Allergies (Verified Allergy, Unknown, 05/15/05) Vitals & I&Os Vital Sign - Last 12Hours Date Time Temp Pulse Resp B/P (MAP) Pulse Ox O2 Delivery O2 Flow Rate FiO2 12/31/18 10:25 94 Nasal Cannula 3.00 12/31/18 08:00 36.3 64 18 161/73 (102) 12/30/18 00:00 40 Intake and Output 12/31/18 00:00 Intake Total 2670 ml Balance 2670 ml Hospital Course See final discharge diagnosis. Discharge Instructions to patient/family Please see electronic discharge instructions given to patient. Discharge Medications Reviewed and agree with Discharge Medication list on patient's Discharge Instruction sheet Clinical Quality Measures DVT/VTE Risk/Contraindication: Risk Factor Score Per Nursin RFS Level Per Nursing on Admit: 4+=Very High NANDA SHAFER MD Dec 31, 2018 11:58
[2018-12-31 12:00] VITALS: BP 122/79
[2018-12-31] MEDS ORDERED: AZIT250T12 PO (12:01)
[2018-12-31] MEDS ORDERED: CEFD300C3 PO (12:01)
--- NOTE | 2018-12-31 12:03 | Discharge Instructions ---
Discharge [facility] Reconcile Patient Problems Problems Reviewed?: Yes Discharge Medications New, Converted or Re-Newed RX: Transmitted to Pharmacy New Medications: Cefdinir (Cefdinir) 300 Mg Capsule 300 MG PO BID for 5 Days, #10 CAP Azithromycin (Azithromycin) 250 Mg Tablet 250 MG PO HS for 3 Days, #3 TAB Continued Medications: Amiodarone HCl (Amiodarone HCl) 200 Mg Tablet 200 MG PO BID, TAB Aspirin (Aspirin EC) 81 Mg Tablet.dr 81 MG PO DAILY, TAB Atorvastatin Calcium (Atorvastatin Calcium) 10 Mg Tablet 10 MG PO HS, TAB Diltiazem HCl (Cartia Xt) 240 Mg Cap.er.24h 240 MG PO DAILY, CAP Insulin Aspart (Novolog Flexpen) 300 Units/3 Ml Solution 60 UNITS SQ BIDAC, EA Insulin Detemir (Levemir Flextouch) 100 Unit/1 Ml Insuln.pen 80 UNITS SQ BID, EA Ipratropium/Albuterol Sulfate (Iprat-Albut 0.5-3(2.5) mg/3 ml) 3 Ml Ampul.neb 3 ML NEB Q4H PRN for SHORTNESS OF BREATH, EACH Losartan Potassium (Losartan Potassium) 50 Mg Tablet 100 MG PO DAILY, TAB TAKES 2 (50MG) TABLETS Metoprolol Succinate (Toprol Xl) 50 Mg Tab.er.24h 50 MG PO DAILY, TAB [place]-3/Dha/Epa/Fish Oil (Fish Oil 1,000 mg Softgel) 1 Each Capsule 2000 MG PO DAILY, CAP Potassium Chloride (Potassium Chloride) 20 Meq Tablet.er 20 MEQ PO DAILY, TAB Prednisone (Prednisone) 20 Mg Tab 40 MG PO DAILY, TAB FILLED #30 -7-19 TAKES 2 (20MG) TABLETS [Vitamin Pack] () 1 PACKET PO DAILY, EA Discontinued Medications: Diclofenac Sodium (Diclofenac Sodium) 75 Mg Tablet. 75 MG PO BID, TAB Patient Instructions Goal/Follow Up Appt: You have a hospital f.u appt with Dr Alexis on Jan 06 @ 10 AM Patient Instructions: - Make sure to complete your antibiotics -2L fluid restriction Activity & Diet Discharge Diet: ADA Diet, Cardiac Diet Activity as Tolerated: Yes Orders-Post D/C & Referrals Pneu Vac Indicated: Yes Copy Copies To 1: EB ALEXIS MD, HOLLY R MD Dec 31, 2018 12:03
--- NOTE | 2018-12-31 15:13 | NUR ---
CALLED [facility] AT THIS TIME, THEY DID RECEIVE THE NEW SCRIPT FOR ELIQUIS, THE PATIENT DOES NOT HAVE INSURANCE SO IT IS EXPENSIVE BUT THEY WERE ABLE TO GET IT AUTHORIZED THROUGH THE REPOSITORY AND IT SHOULD BE READY FOR THE PATIENT TO [employer]. I RELAYED THIS INFORMATION TO THE PATIENT AT THIS TIME WELL.
--- NOTE | 2019-01-03 23:23 | Physician Query Clarification ---
PQ-Uncertain Diagnosis Admission/Discharge Admission Date: Dec 28, 2018 at 16:21 Discharge Date: Dec 31, 2018 at 15:15 The medical record reflects the following clinical scenario: History/Risk Factors: History pneumonia Clinical Findings: cough, AECOPD Treatment: IV antibiotics, Oxygen Question: Is pneumonia a clinically valid diagnosis? Pneumonia was documented in the ED record with no further documentation in the medical record. Please document a response in Progress Note or Discharge Summary. 1. Yes, clinically valid, condition resolved. 2. No, condition ruled out. 3. Other, with explanation of clinical findings. 4. Undetermined, no explanation for clinical findings. PHYSICIAN RESPONSE Diagnosis clinically valid: No, conditon ruled out Please remember a lack of response to the above will prompt a phone page by CDI/Coding staff. In responding to this query, please exercise your independent professional judgment. The purpose of this communication is to more accurately reflect the complexity of your patients condition. The fact that a question is asked does not imply that any particular answer is desired or expected. Thank you for your timely response to this clarification. Requestors name: Gissel Rojas Phone # [phone] THIS PHYSICIAN QUERY FORM IS A PERMANENT PART OF THE MEDICAL RECORD GISSEL BROWER Jan 03, 2019 23:23 NANDA WINSTON MD Jan 10, 2019 21:22 POS
== END 2018-12-31 15:15 | disposition home or self-care (01) | DRG 191 ==
LOC: EDUNIT# 14:25 → ER 14:26 → CSD 16:21 → 4TH 12-30 15:31
PROVIDERS: ADMIT Family Medicine; ATTEND Family Medicine
DX: J44.1 Chronic obstructive pulmonary disease with (acute) exacerbation (principal); I12.9 Hypertensive chronic kidney disease with stage 1 through stage 4 chronic kidney disease, or unspecified chronic kidney disease; N18.3 Chronic kidney disease, stage 3 (moderate); E66.2 Morbid (severe) obesity with alveolar hypoventilation; Z68.43 Body mass index [BMI] 50.0-59.9, adult; E11.65 Type 2 diabetes mellitus with hyperglycemia; I25.10 Atherosclerotic heart disease of native coronary artery without angina pectoris; D64.9 Anemia, unspecified; G47.33 Obstructive sleep apnea (adult) (pediatric); E87.5 Hyperkalemia; I48.91 Unspecified atrial fibrillation; R60.9 Edema, unspecified; E78.00 Pure hypercholesterolemia, unspecified; E11.40 Type 2 diabetes mellitus with diabetic neuropathy, unspecified; M17.11 Unilateral primary osteoarthritis, right knee; M17.12 Unilateral primary osteoarthritis, left knee; Z87.891 Personal history of nicotine dependence; Z99.81 Dependence on supplemental oxygen; Z79.4 Long term (current) use of insulin
CPT/HCPCS: 36415; 36600; 71045; 80048; 80053; 82805; 82962; 83605; 83880; 84484; 85007; 85025; 85027; 87040; 93306; 94640; 94660; 94760; 96374; 96375

== ENCOUNTER 2019-01-11 11:04 | Inpatient (IN) | payer MEDICARE ==
[~2019-01-11] VITALS: Ht 180 cm; Wt 176.8 kg
[2019-01-11] VITALS (15 sets, daily range): BP systolic 105–199; BP diastolic 43–107
[~2019-01-11 11:04] MED LIST changes: +AZIT250T12 PO; +CEFD300C3 PO; +DILT240C53 PO; +IPRA3AMP31 NEB; +LOSA50TA63 PO
[2019-01-11] MEDS ORDERED: FUROSEMIDE 40 MG/4 ML INJ (LASIX) IV STA (11:17)
[2019-01-11] MEDS ORDERED: LORazepam INJ 2 MG/ML (ATIVAN) VIAL ONE (11:20)
[2019-01-11 11:27] LABS: BASOPHILS % (AUTO) 0 % (0-10); EOSINOPHILS # (AUTO) 0.1 10^3/uL (0.0-0.3); EOSINOPHILS % (AUTO) 1 % (0-10); HEMATOCRIT 31 % (40-54); HEMOGLOBIN 9.2 G/DL (13.3-17.7); LYMPHOCYTES # (AUTO) 1.1 X 10^3 (1.0-4.0); LYMPHOCYTES % (AUTO) 11 % (12-44); MEAN CORPUSCULAR HGB CONC 30 G/DL (32-36); MEAN CORPUSCULAR VOLUME 98 FL (80-99); MEAN PLATELET VOLUME 9.4 FL (7.4-10.4); MONOCYTES # (AUTO) 0.6 X 10^3 (0.0-1.0); MONOCYTES % (AUTO) 6 % (0-12); NEUTROPHILS % (AUTO) 82 % (42-75); PLATELET COUNT 190 10^3/uL (130-400); RED CELL DISTRIBUTION WIDTH 16.2 % (10.0-14.5); WHITE BLOOD COUNT 9.9 10^3/uL (4.3-11.0)
[2019-01-11 11:29] LABS: MEAN CORPUSCULAR HEMOGLOBIN 29 PG (25-34)
[2019-01-11 11:38] LABS: INR 1.2 (0.8-1.4); PROTHROMBIN TIME PATIENT 16.2 SEC (12.2-14.7)
[2019-01-11] MEDS: LORazepam INJ 2 MG/ML (ATIVAN) VIAL IVP ONE ×2 (11:41→11:56)
[2019-01-11 11:42] LABS: ALANINE AMINOTRANSFERASE 41 U/L (0-55); ALBUMIN 2.6 GM/DL (3.2-4.5); ALKALINE PHOSPHATASE 45 U/L (40-136); BILIRUBIN,TOTAL 0.4 MG/DL (0.1-1.0); BUN/CREATININE RATIO 26; CALCIUM 7.2 MG/DL (8.5-10.1); CARBON DIOXIDE 26 MMOL/L (21-32); CHLORIDE 108 MMOL/L (98-107); CREATININE SERUM 1.17 MG/DL (0.60-1.30); GFR ESTIMATED > 60; GLUCOSE 182 MG/DL (70-105); SODIUM 142 MMOL/L (135-145); TOTAL PROTEIN 4.8 GM/DL (6.4-8.2)
[2019-01-11 11:47] LABS: ABG BASE EXCESS 5.2 MMOL/L (-2.5-2.5); ABG OXYGEN SATURATION 99 % (94-100); ABG PO2 141 MMHG (79-93); ABG TCO2 34.1 MMOL/L (21.0-31.0); BILIRUBIN,URINE NEGATIVE (NEGATIVE); CLARITY,URINE SLIGHTLY CLOUDY; COLOR,URINE YELLOW; GLUCOSE, URINE (UA) 2+ (NEGATIVE); KETONES,URINE NEGATIVE (NEGATIVE); LEUKOCYTE ESTERASE ,URINE NEGATIVE (NEGATIVE); NITRITE,URINE NEGATIVE (NEGATIVE); PH,URINE 5 (5-9); PROTEIN,URINE 4+ (NEGATIVE)
[2019-01-11 11:48] LABS: ALLENS TEST POSITIVE
[2019-01-11 11:49] LABS: ABG PCO2 78 MMHG (35-45); ABG PH 7.25 (7.37-7.43); INSPIRED O2 65% BIPAP; PATIENT TEMP 38.3; VENTILATOR NO
[2019-01-11] MEDS ORDERED: DILTIAZEM IV FOR DRIP 125 MG in NS (IVPB) 100 ML IV SCH (12:00)
[2019-01-11] MEDS ORDERED: LORazepam INJ 2 MG/ML (ATIVAN) VIAL IVP ONE (12:00)
--- NOTE | 2019-01-11 12:00 | NUR ---
1200- PT ATTEMPTING TO SLIDE OFF FOOT OF BED, AT BEDISIDE ASKING FOR HELP. ER STAFF TO , DECISION MADE TO INTUBATE PT DUE TO CURRENT CONDITION. PTS O2 SATS DROPPED TO 50s AFTER TAKING OFF BIPAP WHILE TRYING TO GET OUT OF BED. BIPAP PLACED BACK ON PT. 1208- RT TO ROOM FOR INTUBATION. 1210- PT PREOXYGENATED WITH BVM 1211- ETOMIDATE 20MG ADMINISTERED 1212- 200 MG SUCCS ADMINISTERED 1214- FIRST ATTEMPT AT INTUBATION, SUCCESSFUL. 8.0 ETT PLACED 24 @ THE TEETH. POSITIVE COLOR CHANGE, LUNG SOUNDS AUSCULTATED BILATERALLY. 1215- 98% ON VENT, HR 124 1220- FENTANYL 100MCG, VERSED 5MG ADMINISTERED 1230- CENTRAL LINE PLACED BY DR WOODS IN RIGHT JUGULAR 1235- 40MG PROPROFOL IV PUSH ADMINISTERED BY DR WOODS 1237- PROPROFOL DRIP STARTED 40MCG/KG/MIN 1240- 16FR OG PLACED 1240- PROPROFOL INCREASED TO 80MCG/KG/MIN 1245- 40MG PROPROFOL IV PUSH ADMINISTERED BY DR WOODS
[2019-01-11 12:05] LABS: AMORPHOUS SEDIMENT,UR LARGE AMOR URATES /LPF; BACTERIA,URINE NEGATIVE /HPF; GRANULAR CASTS,URINE RARE /LPF; SQUAMOUS EPITHELIAL CELL,UR RARE /HPF
--- NOTE | 2019-01-11 12:20 | NUR ---
Pastoral care responded to ER page, provided support and prayer to as pt was treated and intubated.
--- NOTE | 2019-01-11 12:21 | Diagnostic Imaging Report ---
INDICATION: Shortness of air. COMPARISON: 12/28/2018 TECHNIQUE: Single frontal radiograph of the chest dated 01/11/2019. FINDINGS: The cardiac silhouette is enlarged, though stable. Central pulmonary vascular congestion is noted, increased from the prior examination. Significantly low lung volumes are noted, decreased since the prior examination. Probable small bilateral pleural effusions. No pneumothorax. No acute osseous abnormality. IMPRESSION: Constellation of findings likely relates to congestive heart failure with associated interstitial edema and small bibasilar pleural effusions. Dictated by: Dictated on workstation # [id number]
[2019-01-11] MEDS ORDERED: PROPOFOL DRIP (ICU) 100 ML IV ONE (12:31)
[2019-01-11] MEDS ORDERED: PROPOFOL DRIP (ICU) 100 ML IV SCH (12:45)
[2019-01-11] MEDS: DILTIAZEM 25 MG/5 ML INJ (CARDIZEM) VIAL IVP ONE ×2 (12:50→13:26)
--- NOTE | 2019-01-11 12:58 | ED General ---
General Chief Complaint: Respiratory Problems Stated Complaint: SOA Nursing Triage Note: PT BROUGHT IN BY [facility] FROM HOME WITH COMPLAINT OF SOA THAT STARTED YESTERDAY. PT HAS EDEMA TO LOWER EXTEMITIES AND ABD. Nursing Sepsis Screen: No Definite Risk Source of Information: Patient Exam Limitations: Physical Impairments History of Present Illness Date Seen by Provider: Jan 11, 2019 Time Seen by Provider: 11:05 Initial Comments Here by EMS with significant respiratory distress. Normal at 4 L via nasal cannula at home by EMS had him on higher flow O2 at 6-10 L. Patient confused and complaining of significant shortness of breath. He has swelling and weeping of both legs and swelling although it to the abdomen. Patient is poor historian. In talking to the , he has had increasing shortness of breath over the past 2 or 3 days. He has had multiple admissions over the past couple of months for heart failure and pneumonia. He follows with Dr. Contreras and Dr. Gutiérrez as well as [facility]. Does have history of atrial fibrillation and is on Eliquis. Apparently saw Dr. Alexis in the clinic last week and was supposedly started on something for swelling he thinks but is not sure. Fever on arrival. Otherwise unable to get good history due to underlying illness. Timing/Duration: 2-3 Days, Getting Worse Severity: Severe Modifying Factors: worse with Movement; improves with Rest Associated Systoms: No Cough; Fever/Chills, Shortness of Air, Weakness Allergies and Home Medications Allergies Coded Allergies: NKANo Known Allergies (Verified Allergy, Unknown, 05/15/05) Home Medications Amiodarone HCl 200 Mg Tablet, 200 MG PO BID, (Reported) Apixaban 5 Mg Tablet, 5 MG PO DAILY, (Reported) Aspirin 81 Mg Tablet.dr, 81 MG PO DAILY, (Reported) Atorvastatin Calcium 10 Mg Tablet, 10 MG PO HS, (Reported) Diltiazem HCl 240 Mg Cap.er.24h, 240 MG PO DAILY, (Reported) Insulin Aspart 300 Units/3 Ml Solution, 60 UNITS SQ BIDAC, (Reported) Insulin Detemir 100 Unit/1 Ml Insuln.pen, 80 UNITS SQ BID, (Reported) Ipratropium/Albuterol Sulfate 3 Ml Ampul.neb, 3 ML NEB Q4H PRN for SHORTNESS OF BREATH, (Reported) Losartan Potassium 50 Mg Tablet, 100 MG PO DAILY, (Reported) TAKES 2 (50MG) TABLETS Metoprolol Succinate 50 Mg Tab.er.24h, 50 MG PO DAILY, (Reported) LAST FILLED #30 8-28-19 [place]-3/Dha/Epa/Fish Oil 1 Each Capsule, 2,000 MG PO DAILY, (Reported) Potassium Chloride 20 Meq Tablet.er, 20 MEQ PO DAILY, (Reported) [Vitamin Pack] , 1 PACKET PO DAILY, (Reported) Patient Home Medication List Home Medication List Reviewed: Yes Review of Systems Review of Systems Constitutional: see HPI, fever, weakness Respiratory: orthopnea, short of breath Cardiovascular: see HPI, edema Gastrointestinal: no symptoms reported Unable to completely review of systems due to altered mental status. Past Ldtiimk-Gwbwrm-Ggfqgw Hx Past Med/Social Hx: Reviewed Nursing Past Med/Soc Hx Patient Social History Alcohol Use: Past History Number of Drinks Today: AA Alcohol Beverage of Choice: Beer Recreational Drug Use: No Smoking Status: Former Smoker Type Used: Cigarettes Former Smoker, Quit: Aug 15, 2005 Recent Foreign Travel: No Contact w/Someone Who Travel: No Recent Infectious Disease Expo: No Recent Hopitalizations: Yes (12/04/18-12/20/18 FOR PNEUMONIA/COPD/AFIB/LEG CELLULITIS/SEPSIS) Physical Abuse: No Sexual Abuse: No Mistreated: No Fear: No Immunizations Up To Date Tetanus Booster (TDap): More than 5yrs Seasonal Allergies Seasonal Allergies: No Past Medical History Surgeries: Yes Abdominal, Cardiac Respiratory: Yes Pneumonia, COPD Currently Using CPAP: No Currently Using BIPAP: Yes ([facility]) Cardiac: Yes (CARDIAC CATH--NO INTERVENTION) Atrial Fibrillation, Chronic Edema/Swelling, High Cholesterol, Hypertension Neurological: Yes Neuropathy Reproductive Disorders: No Sexually Transmitted Disease: No Genitourinary: Yes Renal Failure Gastrointestinal: Yes Abdominal Hernia 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) Arthritis Endocrine: Yes (OBESITY) Diabetes, Insulin dep HEENT: Yes (GLASSES) Cataract Loss of Vision: Denies Hearing Impairment: Denies Cancer: No Psychosocial: Yes Sleep Difficulties Integumentary: No Blood Disorders: No Family Medical History Reviewed Nursing Family Hx Diabetes mellitus 19 FATHER G8 BROTHER Hypertension G8 BROTHER Myocardial infarction 19 FATHER, Onset:50's - 60 Physical Exam-Suspected Sepsis Physical Exam Vital Signs Vital Signs - First Documented 01/11/19 01/11/19 11:05 14:30 Temp 38.3 Pulse 113 Resp 28 B/P (MAP) 199/107 (137) Pulse Ox 94 O2 Delivery OxyMask O2 Flow Rate 10.00 FiO2 50 Capillary Refill : Less Than 3 Seconds Blood Pressure Mean: 137 POS Height, Weight, BMI Height: 5'11" Weight: 260lbs. 0.0oz. 117.065912rp; 42.00 BMI Method:Stated General Appearance: Moderate Distress, Obese HEENT: PERRL/EOMI, Pharynx Normal Neck: Full Range of Motion, Normal Inspection, Non Tender, Supple Respiratory: Crackles (bilateral up to mid lung), Respiratory Distress Cardiovascular: No Murmur, Irregularly Irregular, Tachycardia Gastrointestinal: Distended, Other (edematous) Back: Normal Inspection, No CVA Tenderness, No Vertebral Tenderness Extremity: Pedal Edema (4+ to above the knees bilateral), Pelvis Stable Neurologic/Psychiatric: Alert, Disoriented Skin: other (warm with weeping legs bilateral secondary to significant edema no obvious infection but does have some erythema bilateral.) Focused Exam Lactate Level 01/11/19 11:10: Lactic Acid Level 1.47 Lactic Acid Level Procedures/Interventions Lumen: triple Central Line Procedure: betadine prep, sterile drapes applied, sterile dressing applied Position: internal jugular (R) Complications: none Post Position: sutured, good blood return, position confirmed w/ CXR Anterior cruciate ligament ultrasound guidance to the right IJ times one stick. Tolerated procedure well with no complications. Patient is on Eliquis and did ooze from the wound but was controlled with pressure. Date of ETT Placement: Jan 11, 2019 Time of ETT Placement: 12:14 Intubation Method: orotracheal Tube Size: 8 Medications: Etomidate, Succinylcholine Intubation Complications: no complications Post Intubation Xray: Yes good position Progress/Results/Core Measures Suspected Sepsis Recent Fever Within 48 Hours: No Infection Criteria Present: None New/Unexplained Altered Menta: No Sepsis Screen: No Definite Risk SIRS Temperature: Pulse: 131 Respiratory Rate: 43 Laboratory Tests 01/11/19 11:10: White Blood Count 9.9 Blood Pressure 167 /100 Mean: 137 01/11/19 11:10: Lactic Acid Level 1.47 Laboratory Tests 01/11/19 11:10: Creatinine 1.17, INR Comment 1.2, Platelet Count 190, Total Bilirubin 0.4 Results/Orders Lab Results Laboratory Tests Test 01/11/19 11:10 01/11/19 11:33 01/11/19 13:30 01/11/19 15:55 Range/Units White Blood Count 9.9 4.3-11.0 10^3/uL Red Blood Count 3.12 L 4.35-5.85 10^6/uL Hemoglobin 9.2 L 13.3-17.7 G/DL Hematocrit 31 L 40-54 % Mean Corpuscular Volume 98 80-99 FL Mean Corpuscular Hemoglobin 29 25-34 PG Mean Corpuscular Hemoglobin Concent 30 L 32-36 G/DL Red Cell Distribution Width 16.2 H 10.0-14.5 % Platelet Count 190 130-400 10^3/uL Mean Platelet Volume 9.4 7.4-10.4 FL Neutrophils (%) (Auto) 82 H 42-75 % Lymphocytes (%) (Auto) 11 L 12-44 % Monocytes (%) (Auto) 6 0-12 % Eosinophils (%) (Auto) 1 0-10 % Basophils (%) (Auto) 0 0-10 % Neutrophils # (Auto) 8.0 H 1.8-7.8 X 10^3 Lymphocytes # (Auto) 1.1 1.0-4.0 X 10^3 Monocytes # (Auto) 0.6 0.0-1.0 X 10^3 Eosinophils # (Auto) 0.1 0.0-0.3 10^3/uL Basophils # (Auto) 0.0 0.0-0.1 10^3/uL Prothrombin Time 16.2 H 12.2-14.7 SEC INR Comment 1.2 0.8-1.4 Activated Partial Thromboplast Time 27 24-35 SEC Sodium Level 142 135-145 MMOL/L Potassium Level 5.0 3.6-5.0 MMOL/L Chloride Level 108 H 98-107 MMOL/L Carbon Dioxide Level 26 21-32 MMOL/L Anion Gap 8 5-14 MMOL/L Blood Urea Nitrogen 30 H 7-18 MG/DL Creatinine 1.17 0.60-1.30 MG/DL Estimat Glomerular Filtration Rate > 60 BUN/Creatinine Ratio 26 Glucose Level 182 H 70-105 MG/DL Lactic Acid Level 1.47 0.50-2.00 MMOL/L Calcium Level 7.2 L 8.5-10.1 MG/DL Corrected Calcium 8.3 L 8.5-10.1 MG/DL Total Bilirubin 0.4 0.1-1.0 MG/DL Aspartate Amino Transf (AST/SGOT) 18 5-34 U/L Alanine Aminotransferase (ALT/SGPT) 41 0-55 U/L Alkaline Phosphatase 45 40-136 U/L Troponin I < 0.028 <0.028 NG/ML C-Reactive Protein High Sensitivity 1.76 H 0.00-0.50 MG/DL B-Type Natriuretic Peptide 285.9 H <100.0 PG/ML Total Protein 4.8 L 6.4-8.2 GM/DL Albumin 2.6 L 3.2-4.5 GM/DL Urine Color YELLOW Urine Clarity SLIGHTLY CLOUDY Urine pH 5 5-9 Urine Specific [place] 1.020 1.016-1.022 Urine Protein 4+ NEGATIVE Urine Glucose (UA) 2+ H NEGATIVE Urine Ketones NEGATIVE NEGATIVE Urine Nitrite NEGATIVE NEGATIVE Urine Bilirubin NEGATIVE NEGATIVE Urine Urobilinogen NORMAL NORMAL MG/DL Urine Leukocyte Esterase NEGATIVE NEGATIVE Urine RBC (Auto) 4+ H NEGATIVE Urine RBC 10-25 H /HPF Urine WBC NONE /HPF Urine Squamous Epithelial Cells RARE /HPF Urine Crystals PRESENT H /LPF Urine Amorphous Sediment LARGE CAYLA URATES H /LPF Urine Bacteria NEGATIVE /HPF Urine Casts PRESENT /LPF Urine Granular Casts RARE /LPF Urine Mucus NEGATIVE /LPF Urine Culture Indicated CULTURE PENDING Blood Gas Puncture Site RIGHT RADIAL RIGHT RADIAL RT RAD ARTLINE Blood Gas Patient Temperature 38.3 38.8 37.6 Arterial Blood pH 7.25 *L 7.21 *L 7.33 *L 7.37-7.43 Arterial Blood Partial Pressure CO2 78 *H 86 *H 62 H 35-45 MMHG Arterial Blood Partial Pressure O2 141 H 93 62 L 79-93 MMHG Arterial Blood HCO3 32 H 32 H 31 H 23-27 MMOL/L Arterial Blood Total CO2 34.1 H 34.9 H 33.1 H 21.0-31.0 MMOL/L Arterial Blood Oxygen Saturation 99 96 93 L 94-100 % Arterial Blood Base Excess 5.2 H 5.4 H 5.7 H -2.5-2.5 MMOL/L Gurwinder Test POSITIVE POSITIVE ART LINE Blood Gas Ventilator Setting NO YES YES Blood Gas Inspired Oxygen 65% BIPAP 65% 20 Test 01/11/19 16:02 01/11/19 18:09 Range/Units Phosphorus Level 4.3 2.3-4.7 MG/DL Magnesium Level 1.8 1.6-2.4 MG/DL Triglycerides Level 103 <150 MG/DL Glucometer 179 H 70-110 MG/DL Micro Results Microbiology 01/11/19 Influenza Types A,B Antigen (TISHA) - Final, Complete My Orders Orders - LIS WOODS MD Lorazepam Injection (Ativan Injection) (01/11/19 11:20) Cbc With Automated Diff (01/11/19 11:17) Comprehensive Metabolic Panel (01/11/19 11:17) Blood Culture (01/11/19 11:17) Sputum Culture (01/11/19 11:17) Urinalysis (01/11/19 11:17) Urine Culture (01/11/19 11:17) Protime With Inr (01/11/19 11:17) Partial Thromboplastin Time (01/11/19 11:17) Chest 1 View, Ap/Pa Only (01/11/19 11:17) Ed Iv/Invasive Line Start (01/11/19 11:17) Troponin I (01/11/19 11:17) Vital Signs Adult Sepsis Patie Q15M (01/11/19 11:17) O2 (01/11/19 11:17) Remove Rings In Anticipation O (01/11/19 11:17) Lactic Acid Analyzer (01/11/19 11:17) Influenza A And B Antigens (01/11/19 11:17) BNP (01/11/19 11:17) Hs C Reactive Protein (01/11/19 11:17) Furosemide Injection (Lasix Injection) (01/11/19 11:17) Catheter(Urinary) Insert & Ass 03,15 (01/11/19 11:17) Arterial Blood Gas (01/11/19 11:17) Lorazepam Injection (Ativan Injection) (01/11/19 11:45) Ns (Ivpb) (Sodium C... W/Diltiazem Iv Fo (01/11/19 12:00) Diltiazem Injection (Cardizem Injection) (01/11/19 12:00) Lorazepam Injection (Ativan Injection) (01/11/19 12:00) Propofol Drip (Icu) (Diprivan Drip (Icu) (01/11/19 12:31) Acetaminophen Oral Solution (Tylenol Ora (01/11/19 13:15) Norepinephrine (Levophed) (01/11/19 13:15) Piperacillin Sodium/Tazobactam (Zosyn Vi (01/11/19 13:15) Arterial Blood Gas (01/11/19 13:29) Ekg Tracing (01/11/19 12:00) Medications Given in ED Current Medications Medications Dose Ordered Sig/Mayra Route Start Time Stop Time Status Last Admin Dose Admin Acetaminophen 960 mg ONCE ONCE PO 01/11/19 13:15 01/11/19 13:16 DC 01/11/19 13:25 960 MG Diltiazem HCl 20 mg ONCE ONCE IVP 01/11/19 12:00 01/11/19 12:01 DC 01/11/19 12:50 20 MG Lorazepam 1.5 mg ONCE ONCE IVP 01/11/19 12:00 01/11/19 12:01 DC 01/11/19 11:45 1.5 MG Piperacillin Sod/ Tazobactam Sod 4.5 gm/Sodium Chloride 100 ml @ 200 mls/hr ONCE ONCE IV 01/11/19 13:15 01/11/19 13:44 DC 01/11/19 13:33 200 MLS/HR Vital Signs/I&O 01/11/19 01/11/19 01/11/19 01/11/19 11:05 11:05 11:39 12:37 Temp 38.3 38.52709 Pulse 113 131 120 Resp 28 43 20 B/P (MAP) 199/107 (137) 150/100 Pulse Ox 94 95 100 96 O2 Delivery OxyMask OxyMask O2 Flow Rate 10.00 10.00 65.00 01/11/19 01/11/19 01/11/19 01/11/19 12:53 14:13 14:30 14:30 Pulse 91 89 94 100 Resp 16 34 B/P (MAP) 91/56 101/61 131/78 (95) Pulse Ox 99 90 91 O2 Delivery Mechanical Ventilator Mechanical Ventilator O2 Flow Rate 40.00 FiO2 50 01/11/19 01/11/19 01/11/19 01/11/19 15:00 15:37 15:50 16:00 Temp 37.6 Pulse 83 86 95 Resp 19 20 20 B/P (MAP) 144/80 (101) 109/43 (65) Pulse Ox 100 97 90 O2 Delivery Mechanical Ventilator Mechanical Ventilator O2 Flow Rate 40.00 30.00 FiO2 30 01/11/19 01/11/19 01/11/19 01/11/19 16:16 16:24 16:58 17:00 Temp 38.3 Pulse 113 79 Resp 20 B/P (MAP) 158/62 (94) Pulse Ox 94 91 97 O2 Delivery Mechanical Ventilator Mechanical Ventilator Mechanical Ventilator O2 Flow Rate 40.00 40.00 FiO2 30 01/11/19 01/11/19 01/11/19 17:26 18:00 18:29 Pulse 72 79 Resp 20 20 B/P (MAP) 71/39 143/58 (86) Pulse Ox 96 98 O2 Delivery Mechanical Ventilator O2 Flow Rate 40.00 FiO2 40 Capillary Refill : Less Than 3 Seconds Blood Pressure Mean: 137 POS Progress Note : Progress Note Seen and evaluated on arrival by EMS. Placed on high flow O2. Patient is confused and agitated. Sepsis protocol initiated. Second IV initiated. Patient did have BiPAP ordered and this was started and Lasix 80 mg IV initiated due to significant bilateral lower extremity edema as well as chest x-ray concerning for significant bilateral pulmonary edema. ABG ordered and done and reviewed. Patient having a fair amount of anxiety related to BiPAP and current condition. Ativan 1.5 mg IV given. Monitor patient. 1205: Patient becoming increasingly confused and agitated. Pulling at lines and attempted to get out of bed. Respiratory distress increasing. Elected to intubate emergently and this was discussed with his who agreed. We will place central line afterwards. 1245: Patient intubated and central line placed. Post placement x-ray ordered. Patient has Molina catheter already and did get OG placement. Initiated on propofol drip. I did give propofol 40 mg IV bolus 2 and initiated drip at 40 mcg/kg/min. Also ordered Cardizem bolus and drip due to heart rate in the 110's to 130s. 1315: Zosyn 4.5 g IV ordered and Tylenol 960 mg per NG tube ordered. I have discussed the case with Dr. Contreras regarding ICU admission. Patient now is having hypotension. While there is concerns for sepsis and pneumonia, I believe hypotension is related to the medications used for treatment of his atrial fibrillation and for sedation with the Cardizem and propofol. 1335: Cardizem stopped at this point and propofol decreased to 60 mcg/kg/m from 80 mcg/kg/m. Levophed has been initiated. Blood pressures improved. Despite sepsis protocol recommending high-volume fluid resuscitation, I do not believe this is in the patient's best interest due to significant volume overload and the need to clear the lungs of pulmonary edema prior to initiating fluids. These can be considered later but at this juncture, I do believe it would be harmful to the patient. 1345: Rate increased to 16 and FiO2 decreased to 50 % for increasing PaCO2 on ABG. Orders written. 1355: I attest to focused exam at this time. Case discussed with Dr. Contreras at 1252 and 1312. Case discussed with Dr. Cortez at [address] Gutiérrez at 1332. ECG Initial ECG Impression Date: Jan 11, 2019 Initial ECG Impression Time: 13:26 Initial ECG Rate: 91 Initial ECG Rhythm: A Fib/Flutter Initial ECG Impression: Atrial Fibrillation Comment A. fib with left axis deviation. No evidence of ST elevation CT. Unchanged from previous of 12/24/18 which was sinus rhythm. Interpreted by me. This was the second attempt at EKG as first attempt had lead reversal but did note A. fib with rapid ventricular rate earlier. Diagnostic Imaging Diagonstic Imaging: Xray Plain Films/CT/US/NM/MRI: chest Comments [facility], [facility]. POS [place], [place] POS NAME: FUAD CARSON [facility] REC#: [id number] PT STATUS: REG ER : 1955 PHYSICIAN: LIS WOODS MD ADMIT DATE: 01/11/19/ER Draft POSDate of Exam:01/11/19 CHEST 1 VIEW, AP/PA ONLY INDICATION: Shortness of air. COMPARISON: 12/28/2018 TECHNIQUE: Single frontal radiograph of the chest dated 01/11/2019. FINDINGS: The cardiac silhouette is enlarged, though stable. Central pulmonary vascular congestion is noted, increased from the prior examination. Significantly low lung volumes are noted, decreased since the prior examination. Probable small bilateral pleural effusions. No pneumothorax. No acute osseous abnormality. IMPRESSION: Constellation of findings likely relates to congestive heart failure with associated interstitial edema and small bibasilar pleural effusions. Dictated on workstation # [id number] Dict: 01/11/19 1217 Trans: 01/11/19 1221 TS [id number] Interpreted by: GERMAN BILL MD Electronically signed by: Diagonstic Imaging: Xray Plain Films/CT/US/NM/MRI: chest Comments [facility]. POS [place], [place] POS NAME: FUAD CARSON [facility] REC#: [id number] PT STATUS: REG ER : 1955 PHYSICIAN: DEMOND ARZOLA ADMIT DATE: 01/11/19/ER Draft POSDate of Exam:01/11/19 CHEST 1 VIEW, AP/PA ONLY INDICATION: Intubation and central line placement. TIME OF EXAM: 1:03 p.m. COMPARISON: Correlation is made with prior chest from earlier the same day. FINDINGS: ET tube has tip in good position above the karthikeyan. NG tube passed below the diaphragm. Right IJ line has tip overlying the SVC. No pneumothorax is seen. There are central congestive changes. There are bilateral infiltrates and a small right effusion. IMPRESSION: Placement of various lines and catheters, as described. There are congestive changes with bilateral infiltrates and small right effusion. Dictated on workstation # [id number] Dict: 01/11/19 1323 Trans: 01/11/19 1326 [facility] [id number] Interpreted by: LILA JACOBSEN MD Electronically signed by: Critical Care Note Critical Care Start Time: 11:05 Stop Time: 13:55 Total Time (minutes) 60 Departure Communication (Admissions) Time/Spoke to Admitting Phy: 13:16 Time/Spoke to Consulting Phy: 12:52 Impression Primary Impression: Congestive heart failure, acute Qualified Codes: I50.9 - Heart failure, unspecified Additional Impressions: Acute respiratory failure with hypoxia and hypercarbia Bilateral pneumonia Qualified Codes: J18.9 - Pneumonia, unspecified organism Atrial fibrillation with rapid ventricular response Severe sepsis Disposition: ADMITTED INPATIENT Condition: Critical Admissions Decision to Admit Reason: Admit from ER (General) Decision to Admit/Date: Jan 11, 2019 Time/Decision to Admit Time: 12:00 Departure-Patient Inst. Referrals: EB ALEXIS MD (PCP/Family) Primary Care Physician LIS WOODS MD Jan 11, 2019 12:58 POS
[2019-01-11] MEDS ORDERED: NOREPINEPHRINE 4 MG/4 ML (LEVOPHED) AMP IV ONE ×2 (13:12→18:18)
[2019-01-11] MEDS ORDERED: NS (IVPB) 0 ML ONE (13:12)
[2019-01-11] MEDS ORDERED: APAP 325 MG/10.15 ML LIQ (TYLENOL) UDC ONE (13:15)
[2019-01-11] MEDS ORDERED: NOREPINEPHRINE 4 MG in NS (IVPB) 250 ML IV SCH (13:15)
[2019-01-11] MEDS ORDERED: PIPERACILLIN SODIUM/TAZOBACTAM 4.5 GM in NS (IVPB) 100 ML IV ONE (13:15)
[2019-01-11] MEDS ORDERED: APAP 325 MG/10.15 ML LIQ (TYLENOL) UDC PO ONE (13:15)
--- NOTE | 2019-01-11 13:26 | Diagnostic Imaging Report ---
INDICATION: Intubation and central line placement. TIME OF EXAM: 1:03 p.m. COMPARISON: Correlation is made with prior chest from earlier the same day. FINDINGS: ET tube has tip in good position above the karthikeyan. NG tube passed below the diaphragm. Right IJ line has tip overlying the SVC. No pneumothorax is seen. There are central congestive changes. There are bilateral infiltrates and a small right effusion. IMPRESSION: Placement of various lines and catheters, as described. There are congestive changes with bilateral infiltrates and small right effusion. Dictated by: Dictated on workstation # [id number]
[2019-01-11 13:38] LABS: ABG BASE EXCESS 5.4 MMOL/L (-2.5-2.5); ABG OXYGEN SATURATION 96 % (94-100); ABG PO2 93 MMHG (79-93); ABG TCO2 34.9 MMOL/L (21.0-31.0)
[2019-01-11 13:39] LABS: ABG PH 7.21 (7.37-7.43)
[2019-01-11 13:40] LABS: ABG PCO2 86 MMHG (35-45); ALLENS TEST POSITIVE; INSPIRED O2 65%; PATIENT TEMP 38.8; VENTILATOR YES
--- NOTE | 2019-01-11 13:40 | NUR ---
1340- VENT RATE INCREASED TO 16/MIN; OXYGEN DECREASED TO 50%
[2019-01-11] MEDS ORDERED: NS IV 1000 ML 1,000 ML ONE (14:45)
[2019-01-11] MEDS ORDERED: VANCOMYCIN 2000 MG/NS 500 ML IVPB IV NR ×2 (15:00)
[2019-01-11] MEDS ORDERED: NOREPINEPHRINE 4 MG/NS 250 ML DRIP IV SCH ×2 (15:00)
[2019-01-11] MEDS ORDERED: ETOMIDATE IV SOLN 20 MG/10 ML VIAL IV ONE (15:02)
[2019-01-11] MEDS ORDERED: fentaNYL INJECTION 100 MCG/2 ML AMP INJ ONE (15:02)
[2019-01-11] MEDS ORDERED: MIDAZOLAM 5 MG/5 ML (VERSED) VIAL INJ ONE (15:02)
[2019-01-11] MEDS ORDERED: SUCCINYLCHOLINE INJ 100 MG/5 ML SYR INJ ONE (15:02)
[2019-01-11] MEDS: DEXMEDETOMIDINE INJECTION 1,000 MCG in NS (IVPB) 240 ML IV SCH ×2 (15:14→20:31)
--- NOTE | 2019-01-11 15:24 | Pulmonary Consultation ---
History of Present Illness History of Present Illness Date of Consultation 01/11/19 15:19 Date of Admission Allergies and Home Medications Allergies Coded Allergies: NKANo Known Allergies (Verified Allergy, Unknown, 05/15/05) Home Medications Amiodarone HCl 200 Mg Tablet, 200 MG PO BID, (Reported) Aspirin 81 Mg Tablet.dr, 81 MG PO DAILY, (Reported) Atorvastatin Calcium 10 Mg Tablet, 10 MG PO HS, (Reported) Diltiazem HCl 240 Mg Cap.er.24h, 240 MG PO DAILY, (Reported) Insulin Aspart 300 Units/3 Ml Solution, 60 UNITS SQ BIDAC, (Reported) Insulin Detemir 100 Unit/1 Ml Insuln.pen, 80 UNITS SQ BID, (Reported) Ipratropium/Albuterol Sulfate 3 Ml Ampul.neb, 3 ML NEB Q4H PRN for SHORTNESS OF BREATH, (Reported) Losartan Potassium 50 Mg Tablet, 100 MG PO DAILY, (Reported) TAKES 2 (50MG) TABLETS Metoprolol Succinate 50 Mg Tab.er.24h, 50 MG PO DAILY, (Reported) [place]on-3/Dha/Epa/Fish Oil 1 Each Capsule, 2,000 MG PO DAILY, (Reported) Potassium Chloride 20 Meq Tablet.er, 20 MEQ PO DAILY, (Reported) Prednisone 20 Mg Tab, 40 MG PO DAILY, (Reported) FILLED #30 10-7-19 TAKES 2 (20MG) TABLETS [Vitamin Pack] , 1 PACKET PO DAILY, (Reported) Past Nllectr-Xlreia-Sxkdeg Hx Past Med/Social Hx: Reviewed Nursing Past Med/Soc Hx Patient Social History Alcohol Use: Past History Number of Drinks Today: AA Alcohol Beverage of Choice: Beer Recreational Drug Use: No Smoking Status: Former Smoker Type Used: Cigarettes Former Smoker, Quit: Aug 15, 2005 Recent Foreign Travel: No Contact w/Someone Who Travel: No Recent Infectious Disease Expo: No Recent Hopitalizations: Yes (12/04/18-12/20/18 FOR PNEUMONIA/COPD/AFIB/LEG CELLULITIS/SEPSIS) Physical Abuse: No Sexual Abuse: No Mistreated: No Fear: No Immunizations Up To Date Tetanus Booster (TDap): More than 5yrs Seasonal Allergies Seasonal Allergies: No Past Medical History Surgeries: Yes Abdominal, Cardiac Respiratory: Yes Pneumonia, COPD Currently Using CPAP: No Currently Using BIPAP: Yes ([facility]) Cardiac: Yes (CARDIAC CATH--NO INTERVENTION) Atrial Fibrillation, Chronic Edema/Swelling, High Cholesterol, Hypertension Neurological: Yes Neuropathy Reproductive Disorders: No Sexually Transmitted Disease: No Genitourinary: Yes Renal Failure Gastrointestinal: Yes Abdominal Hernia 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) Arthritis Endocrine: Yes (OBESITY) Diabetes, Insulin dep HEENT: Yes (GLASSES) Cataract Loss of Vision: Denies Hearing Impairment: Denies Cancer: No Psychosocial: Yes Sleep Difficulties Integumentary: No Blood Disorders: No Family Medical History Reviewed Nursing Family Hx Diabetes mellitus 19 FATHER G8 BROTHER Hypertension G8 BROTHER Myocardial infarction 19 FATHER, Onset:50's - 60 Sepsis Event Evaluation Height, Weight, BMI Height: 5'11" Weight: 260lbs. 0.0oz. 117.011257jd; 42.00 BMI Method:Stated Exam Exam Vital Signs Date Time Temp Pulse Resp B/P (MAP) Pulse Ox O2 Delivery O2 Flow Rate FiO2 01/11/19 14:30 100 91 50 01/11/19 14:13 89 16 101/61 99 Mechanical Ventilator 01/11/19 12:53 91 91/56 01/11/19 12:37 38.21404 120 20 150/100 96 01/11/19 11:39 131 43 100 65.00 01/11/19 11:05 38.3 113 28 199/107 (137) 95 OxyMask 10.00 01/11/19 11:05 94 OxyMask 10.00 Height & Weight Height: 5'11" Weight: 260lbs. 0.0oz. 117.685906ef; 42.00 BMI Method:Stated General Appearance: Moderate Distress, Obese HEENT: PERRL/EOMI, Pharynx Normal Neck: Full Range of Motion, Normal Inspection, Non Tender, Supple Respiratory: Crackles (bilateral up to mid lung), Respiratory Distress Cardiovascular: No Murmur, Irregularly Irregular, Tachycardia Capillary Refill: Less Than 3 Seconds Extremity: Pedal Edema (4+ to above the knees bilateral), Pelvis Stable Neurologic/Psychiatric: Alert, Disoriented Results Lab Laboratory Tests 01/11/19 11:10 Assessment/Plan Assessment/Plan Acute respiratory failure -Intubated in ED -repeat labs -repeat ABG Pulmonary edema with bilateral pleural effusions -Check echocardiogram Hypotension -Check echo Morbid obesity with OHS and LUIGI Multiple hospitalizations Anemia -Monitor DEJA SMITH DO Jan 11, 2019 15:24 POS
[2019-01-11] MEDS: RT-ALBUTEROL/IPRATROPIUM 3 ML (DUONEB) VIAL INH SCH ×3 (15:50→22:05)
[2019-01-11] MEDS ORDERED: APIX5TAB PO (15:50)
--- NOTE | 2019-01-11 15:51 | NUR ---
UNABLE TO SPEAK WITH THE PATIENT ABOUT HIS MEDICATIONS AT THIS TIME. I REVIEWED THE INFORMATION FROM HIS PREVIOUS VISITS. [facility] HAS NOT FILLED ANYTHING FOR HIM SINCE 12-20-18 PREVIOUSLY REPORTED. [facility] DID FILL THE ZPAK AND CEFDINIR THAT WAS PRESCRIBED AT HIS LAST DISCHARGE, IT WAS PICKED UP. OTHER THAN THAT THEY HAVE NOT FILLED ANYTHING SINCE OCTOBER LIKE PREVIOUSLY REPORTED EXCEPT FOR TODAY THE REFILLED THE METOPROLOL BUT IT HAS NOT BEEN PICKED UP YET. I CALLED AND SPOKE WITH A NURSE AT [facility] TO TRY TO VERIFY ANY MEDS GIVEN THROUGH THE REPOSITORY BUT AGAIN THEY WERE NOT ABLE TO GIVE ME SPECIFICS. AFTER MUCH DISCUSSION SHE STATES IT WAS NOTED THE ELIQUIS WAS LABELED FOR FAMILY SERVICE CENTER DIRECTOR AT THE OFFICE ON 12-31-18 BUT THERE IS NO DOCUMENTATION IF IT WAS ACTUALLY PICKED UP. IT WAS FOR ELIQUIS 5MG DAILY #60. I SPOKE WITH THE PATIENTS WHO IS NOT FAMILIAR WITH ALL THE NAMES OF HIS MEDICATIONS BUT STATES HE DID FINISHED THE PREDNISONE HE WAS ON LAST TIME HE WAS HERE. SHE STATES THEY DID FAMILY SERVICE CENTER DIRECTOR THE ELIQUIS FROM THE CLINIC AND SHE VERIFIED HE IS ONLY TAKING IT ONCE DAILY.
[2019-01-11] MEDS ORDERED: RT-ALBUTEROL/IPRATROPIUM 3 ML (DUONEB) VIAL INH PRN (16:00)
[2019-01-11 16:01] LABS: ABG BASE EXCESS 5.7 MMOL/L (-2.5-2.5); ABG OXYGEN SATURATION 93 % (94-100); ABG PCO2 62 MMHG (35-45); ABG PO2 62 MMHG (79-93); ABG TCO2 33.1 MMOL/L (21.0-31.0)
[2019-01-11 16:02] LABS: ABG PH 7.33 (7.37-7.43)
[2019-01-11 16:03] LABS: ALLENS TEST ART LINE; INSPIRED O2 20; PATIENT TEMP 37.6; VENTILATOR YES
[2019-01-11 16:27] LABS: MAGNESIUM 1.8 MG/DL (1.6-2.4); PHOSPHORUS 4.3 MG/DL (2.3-4.7)
[2019-01-11] MEDS ORDERED: FUROSEMIDE 40 MG/4 ML INJ (LASIX) IV SCH (17:00)
--- NOTE | 2019-01-11 17:03 | Consultation-Cardiology ---
HPI-Cardiology Cardiology Consultation Date of Consultation 01/11/19 Date of Admission Time Seen by Provider: 16:58 Indication: Acute respiratory failure HPI 63 years old gentleman with known severe COPD, oxygen dependent, had multiple hospitalization for recurrent pneumonia and heart failure recently. Has been having worsening of his symptoms over the past few days and had change in mental status and confusion, brought by ambulance to the emergency room and he was intubated. Currently he is intubated on a ventilator unable to provide any history, he is sedated and receiving multiple pressors. Had atrial fibrillation with rapid ventricular response and became hypotensive after bolus of Cardizem. Currently he has been off the drips at least since 2 o'clock and still with controlled heart rate. Blood pressure is better on multiple pressors Home Medications & Allergies Allergies: Coded Allergies: NKANo Known Allergies (Verified Allergy, Unknown, 05/15/05) Home Medication List Reviewed: Yes OWZ-Kolyrh-Kwaizq Hx Patient Social History Marital Status: Employed/Student: retired Alcohol Use: Past History Recreational Drug Use: No Smoking Status: Former Smoker Former smoker/When Quit: Mar 16, 2004 Type Used: Cigarettes Recent Foreign Travel: No Recent Infectious Disease Expo: No Recent Hopitalizations: Yes (12/04/18-12/20/18 FOR PNEUMONIA/COPD/AFIB/LEG CELLULITIS/SEPSIS) Immunizations Up To Date Tetanus Booster (TDap): More than 5yrs Past Medical History Discussed below Family Medical History Family History: Diabetes mellitus 19 FATHER G8 BROTHER Hypertension G8 BROTHER Myocardial infarction 19 FATHER, Onset:50's - 60 Review of Systems-General Review of Systems Constitutional: see HPI, fever, weakness, other (Sedated and intubated, unable to provide review of systems) Respiratory: orthopnea, short of breath Cardiovascular: see HPI, edema Gastrointestinal: no symptoms reported Psychiatric/Neurological: Other (Sedated and intubated) Reviewed Test Results Reviewed Test Results Lab Laboratory Tests Test 01/11/19 11:10 01/11/19 11:33 01/11/19 13:30 01/11/19 15:55 Range/Units White Blood Count 9.9 4.3-11.0 10^3/uL Red Blood Count 3.12 L 4.35-5.85 10^6/uL Hemoglobin 9.2 L 13.3-17.7 G/DL Hematocrit 31 L 40-54 % Mean Corpuscular Volume 98 80-99 FL Mean Corpuscular Hemoglobin 29 25-34 PG Mean Corpuscular Hemoglobin Concent 30 L 32-36 G/DL Red Cell Distribution Width 16.2 H 10.0-14.5 % Platelet Count 190 130-400 10^3/uL Mean Platelet Volume 9.4 7.4-10.4 FL Neutrophils (%) (Auto) 82 H 42-75 % Lymphocytes (%) (Auto) 11 L 12-44 % Monocytes (%) (Auto) 6 0-12 % Eosinophils (%) (Auto) 1 0-10 % Basophils (%) (Auto) 0 0-10 % Neutrophils # (Auto) 8.0 H 1.8-7.8 X 10^3 Lymphocytes # (Auto) 1.1 1.0-4.0 X 10^3 Monocytes # (Auto) 0.6 0.0-1.0 X 10^3 Eosinophils # (Auto) 0.1 0.0-0.3 10^3/uL Basophils # (Auto) 0.0 0.0-0.1 10^3/uL Prothrombin Time 16.2 H 12.2-14.7 SEC INR Comment 1.2 0.8-1.4 Activated Partial Thromboplast Time 27 24-35 SEC Sodium Level 142 135-145 MMOL/L Potassium Level 5.0 3.6-5.0 MMOL/L Chloride Level 108 H 98-107 MMOL/L Carbon Dioxide Level 26 21-32 MMOL/L Anion Gap 8 5-14 MMOL/L Blood Urea Nitrogen 30 H 7-18 MG/DL Creatinine 1.17 0.60-1.30 MG/DL Estimat Glomerular Filtration Rate > 60 BUN/Creatinine Ratio 26 Glucose Level 182 H 70-105 MG/DL Lactic Acid Level 1.47 0.50-2.00 MMOL/L Calcium Level 7.2 L 8.5-10.1 MG/DL Corrected Calcium 8.3 L 8.5-10.1 MG/DL Total Bilirubin 0.4 0.1-1.0 MG/DL Aspartate Amino Transf (AST/SGOT) 18 5-34 U/L Alanine Aminotransferase (ALT/SGPT) 41 0-55 U/L Alkaline Phosphatase 45 40-136 U/L Troponin I < 0.028 <0.028 NG/ML C-Reactive Protein High Sensitivity 1.76 H 0.00-0.50 MG/DL B-Type Natriuretic Peptide 285.9 H <100.0 PG/ML Total Protein 4.8 L 6.4-8.2 GM/DL Albumin 2.6 L 3.2-4.5 GM/DL Urine Color YELLOW Urine Clarity SLIGHTLY CLOUDY Urine pH 5 5-9 Urine Specific [place] 1.020 1.016-1.022 Urine Protein 4+ NEGATIVE Urine Glucose (UA) 2+ H NEGATIVE Urine Ketones NEGATIVE NEGATIVE Urine Nitrite NEGATIVE NEGATIVE Urine Bilirubin NEGATIVE NEGATIVE Urine Urobilinogen NORMAL NORMAL MG/DL Urine Leukocyte Esterase NEGATIVE NEGATIVE Urine RBC (Auto) 4+ H NEGATIVE Urine RBC 10-25 H /HPF Urine WBC NONE /HPF Urine Squamous Epithelial Cells RARE /HPF Urine Crystals PRESENT H /LPF Urine Amorphous Sediment LARGE CAYLA URATES H /LPF Urine Bacteria NEGATIVE /HPF Urine Casts PRESENT /LPF Urine Granular Casts RARE /LPF Urine Mucus NEGATIVE /LPF Urine Culture Indicated CULTURE PENDING Blood Gas Puncture Site RIGHT RADIAL RIGHT RADIAL RT RAD ARTLINE Blood Gas Patient Temperature 38.3 38.8 37.6 Arterial Blood pH 7.25 *L 7.21 *L 7.33 *L 7.37-7.43 Arterial Blood Partial Pressure CO2 78 *H 86 *H 62 H 35-45 MMHG Arterial Blood Partial Pressure O2 141 H 93 62 L 79-93 MMHG Arterial Blood HCO3 32 H 32 H 31 H 23-27 MMOL/L Arterial Blood Total CO2 34.1 H 34.9 H 33.1 H 21.0-31.0 MMOL/L Arterial Blood Oxygen Saturation 99 96 93 L 94-100 % Arterial Blood Base Excess 5.2 H 5.4 H 5.7 H -2.5-2.5 MMOL/L Gurwinder Test POSITIVE POSITIVE ART LINE Blood Gas Ventilator Setting NO YES YES Blood Gas Inspired Oxygen 65% BIPAP 65% 20 Test 01/11/19 16:02 Range/Units Phosphorus Level 4.3 2.3-4.7 MG/DL Magnesium Level 1.8 1.6-2.4 MG/DL Triglycerides Level 103 <150 MG/DL Physical Exam Physical Exam Vital Signs Vital Signs - First Documented 01/11/19 01/11/19 11:05 14:30 Temp 38.3 Pulse 113 Resp 28 B/P (MAP) 199/107 (137) Pulse Ox 94 O2 Delivery OxyMask O2 Flow Rate 10.00 FiO2 50 Capillary Refill : Less Than 3 Seconds Height, Weight, BMI Height: 5'11" Weight: 260lbs. 0.0oz. 117.613749le; 42.00 BMI Method:Stated General Appearance: Moderate Distress, Obese, Severe Distress, Other (Patient is sedated and intubated) HEENT: PERRL/EOMI, Pharynx Normal Neck: Full Range of Motion, Normal Inspection, Non Tender, Supple Respiratory: Crackles (bilateral up to mid lung), Respiratory Distress, Rhonci, Other (Bilateral rhonchi) Cardiovascular: No Murmur, Irregularly Irregular Gastrointestinal: Distended, Other (edematous) Back: Normal Inspection Extremity: Pedal Edema (4+ to above the knees bilateral), Pelvis Stable Neurologic/Psychiatric: Disoriented, Other (Sedated and intubated) A/P-Cardiology Admission Diagnosis Acute respiratory failure Pulmonary edema Pneumonia Congestive heart failure, acute on chronic left ventricular diastolic dysfunction Assessment/Plan Acute respiratory failure, ventilatory dependent, progressed quickly into respiratory failure. Receiving diuretics and antibiotic at this time Congestive heart failure, echocardiogram showed normal left ventricular size and function with ejection fraction 60 percent, left atrial dilatation with severe pulmonary hypertension with PA pressure 50-60 mmHg. BNP is elevated, probably acute on chronic left ventricular diastolic dysfunction. Receiving diuretics. Continue to monitor Acute exacerbation of COPD with pneumonia, receiving antibiotics. Managed by primary care team Paroxysmal atrial fibrillation, back in atrial fibrillation with controlled rate, given one dose of Cardizem bolus. Unable to tolerate the drip due to hypotension Hypotensive shock secondary to sepsis and pneumonia. Maintained on pressors at this time. Extensive peripheral edema, chronic edema. Cor pulmonale with severe pulmonary hypertension and venous stasis changes. Acute on chronic renal insufficiency, monitor renal function Cellulitis, treated on the previous admission earlier this month. Currently receiving antibiotics. COPD, acute exacerbation, improving, maintained on prednisone at this time and managed by primary care team Morbid obesity, obesity hypoventilation syndrome and acute respiratory failure. Managed by Dr. Contreras Coronary artery disease, history of cardiac catheterization done in 2014 showing coronary ectasia with slow flow, no significant obstructive disease. Conservative management Hyperlipidemia, monitor lipids Diabetes mellitus, followed and managed by primary care physician AMI SANTACRUZ MD Jan 11, 2019 17:03 POS
[2019-01-11] MEDS: PROPOFOL DRIP (ICU) 100 ML IV SCH ×2 (17:26→23:30)
[2019-01-11] MEDS ORDERED: NS (IVPB) 250 ML ONE (18:18)
[2019-01-11] MEDS: PIPERACILLIN/TAZO 4.5 GM/NS 100 ML IV SCH ×2 (18:27)
--- NOTE | 2019-01-11 21:16 | Anesthesia-Procedure Note ---
Procedures/Interventions Procedure Start/Stop/Diagnosis Date of Procedure: Jan 11, 2019 Start Time: 15:40 Referring Physician: Diego Preprocedural Diagnosis: Resp Failure Brief History Called to start A-line in ICU pt sedated on vent. Rt wrist prepped and draped. Chlorhexidine prep. #20g A-line started by A Gabo SRNA x1 attempt. Report to RN Stop Time: 15:50 Postprocedural Diagnosis: Resp Failure Arterial Line Arterial Line Catheter: 20G Type: Radial Location: Right Procedure: prepped, draped in sterile fashion, good wave-form was obtained, patient tolerated procedure well, no immediate complications, post procedure area cleaned, post procedure dressing applied FOREIGN GALDAMEZ CRNA Jan 11, 2019 21:16 POS
--- NOTE | 2019-01-11 22:09 | History & Physical ---
HPI History of Present Illness: Patient intubated and unable to get h/o Per ER Patient had been having increasing shortness of breath for the last week prior to admission. He recently had an admission for cellulitis and shortness of breath. Exam Limitations: clinical condition Date seen by provider: Jan 11, 2019 Time Seen by Provider: 21:30 Attending Physician Moriah Cortez MD PCP Eb Alexis MD Consult Date of Admission Jan 11, 2019 at 13:47 Home Medications Home Medications Reviewed patient Home Medication Reconciliation performed by pharmacy medication reconciliations crop and soil technician and/or nursing. Patients Allergies have been reviewed. Allergies Coded Allergies: NKANo Known Allergies (Verified Allergy, Unknown, 05/15/05) WRG-Olvjii-Dipttq Hx Patient Social History Marrital Status: Living Status: Lives with in home Employed/Student: retired Alcohol Use: Past History Recreational Drug Use: No Smoking Status: Former Smoker Former smoker/When Quit: Mar 16, 2004 Type Used: Cigarettes Recent Foreign Travel: No Contact w/other who traveled: No Recent Hopitalizations: Yes (12/04/18-12/20/18 FOR PNEUMONIA/COPD/AFIB/LEG CELLULITIS/SEPSIS) Recent Infectious Disease Expo: No Immunizations Up To Date Tetanus Booster (TDap): More than 5yrs Date of Pneumonia Vaccine: Jan 06, 2019 Date of Influenza Vaccine: Dec 28, 2018 Past Medical History Past Medical History 1. DM- uncontrolled 2. Hypertension 3. Hyperlipidemia 4. CAD- with coronary ectasia and slow flow no obstructive coronary artery disease Dr. Lopez Cath 08/28 5. Obesity Past Surgical History 1. Incisional Hernia Repair with prior umbilical hernia repair. 2. Cardiac Cath 08/28 -Marla Family Medical History Family History: Diabetes mellitus 19 FATHER G8 BROTHER Hypertension G8 BROTHER Myocardial infarction 19 FATHER, Onset:50's - 60 Review of Systems ([facility]) Constitutional: other (Unable to obtain due to intubation and sedation) Reviewed Test Results Reviewed Test Results Lab Laboratory Tests Test 01/11/19 11:10 01/11/19 11:33 01/11/19 13:30 01/11/19 15:55 Range/Units White Blood Count 9.9 4.3-11.0 10^3/uL Red Blood Count 3.12 L 4.35-5.85 10^6/uL Hemoglobin 9.2 L 13.3-17.7 G/DL Hematocrit 31 L 40-54 % Mean Corpuscular Volume 98 80-99 FL Mean Corpuscular Hemoglobin 29 25-34 PG Mean Corpuscular Hemoglobin Concent 30 L 32-36 G/DL Red Cell Distribution Width 16.2 H 10.0-14.5 % Platelet Count 190 130-400 10^3/uL Mean Platelet Volume 9.4 7.4-10.4 FL Neutrophils (%) (Auto) 82 H 42-75 % Lymphocytes (%) (Auto) 11 L 12-44 % Monocytes (%) (Auto) 6 0-12 % Eosinophils (%) (Auto) 1 0-10 % Basophils (%) (Auto) 0 0-10 % Neutrophils # (Auto) 8.0 H 1.8-7.8 X 10^3 Lymphocytes # (Auto) 1.1 1.0-4.0 X 10^3 Monocytes # (Auto) 0.6 0.0-1.0 X 10^3 Eosinophils # (Auto) 0.1 0.0-0.3 10^3/uL Basophils # (Auto) 0.0 0.0-0.1 10^3/uL Prothrombin Time 16.2 H 12.2-14.7 SEC INR Comment 1.2 0.8-1.4 Activated Partial Thromboplast Time 27 24-35 SEC Sodium Level 142 135-145 MMOL/L Potassium Level 5.0 3.6-5.0 MMOL/L Chloride Level 108 H 98-107 MMOL/L Carbon Dioxide Level 26 21-32 MMOL/L Anion Gap 8 5-14 MMOL/L Blood Urea Nitrogen 30 H 7-18 MG/DL Creatinine 1.17 0.60-1.30 MG/DL Estimat Glomerular Filtration Rate > 60 BUN/Creatinine Ratio 26 Glucose Level 182 H 70-105 MG/DL Lactic Acid Level 1.47 0.50-2.00 MMOL/L Calcium Level 7.2 L 8.5-10.1 MG/DL Corrected Calcium 8.3 L 8.5-10.1 MG/DL Total Bilirubin 0.4 0.1-1.0 MG/DL Aspartate Amino Transf (AST/SGOT) 18 5-34 U/L Alanine Aminotransferase (ALT/SGPT) 41 0-55 U/L Alkaline Phosphatase 45 40-136 U/L Troponin I < 0.028 <0.028 NG/ML C-Reactive Protein High Sensitivity 1.76 H 0.00-0.50 MG/DL B-Type Natriuretic Peptide 285.9 H <100.0 PG/ML Total Protein 4.8 L 6.4-8.2 GM/DL Albumin 2.6 L 3.2-4.5 GM/DL Urine Color YELLOW Urine Clarity SLIGHTLY CLOUDY Urine pH 5 5-9 Urine Specific [place] 1.020 1.016-1.022 Urine Protein 4+ NEGATIVE Urine Glucose (UA) 2+ H NEGATIVE Urine Ketones NEGATIVE NEGATIVE Urine Nitrite NEGATIVE NEGATIVE Urine Bilirubin NEGATIVE NEGATIVE Urine Urobilinogen NORMAL NORMAL MG/DL Urine Leukocyte Esterase NEGATIVE NEGATIVE Urine RBC (Auto) 4+ H NEGATIVE Urine RBC 10-25 H /HPF Urine WBC NONE /HPF Urine Squamous Epithelial Cells RARE /HPF Urine Crystals PRESENT H /LPF Urine Amorphous Sediment LARGE CAYLA URATES H /LPF Urine Bacteria NEGATIVE /HPF Urine Casts PRESENT /LPF Urine Granular Casts RARE /LPF Urine Mucus NEGATIVE /LPF Urine Culture Indicated CULTURE PENDING Blood Gas Puncture Site RIGHT RADIAL RIGHT RADIAL RT RAD ARTLINE Blood Gas Patient Temperature 38.3 38.8 37.6 Arterial Blood pH 7.25 *L 7.21 *L 7.33 *L 7.37-7.43 Arterial Blood Partial Pressure CO2 78 *H 86 *H 62 H 35-45 MMHG Arterial Blood Partial Pressure O2 141 H 93 62 L 79-93 MMHG Arterial Blood HCO3 32 H 32 H 31 H 23-27 MMOL/L Arterial Blood Total CO2 34.1 H 34.9 H 33.1 H 21.0-31.0 MMOL/L Arterial Blood Oxygen Saturation 99 96 93 L 94-100 % Arterial Blood Base Excess 5.2 H 5.4 H 5.7 H -2.5-2.5 MMOL/L Gurwinder Test POSITIVE POSITIVE ART LINE Blood Gas Ventilator Setting NO YES YES Blood Gas Inspired Oxygen 65% BIPAP 65% 20 Test 01/11/19 16:02 01/11/19 18:09 01/11/19 21:10 Range/Units Phosphorus Level 4.3 2.3-4.7 MG/DL Magnesium Level 1.8 1.6-2.4 MG/DL Triglycerides Level 103 <150 MG/DL Glucometer 179 H 179 H 70-110 MG/DL Physical Exam-(CHC) Physical Exam Vital Signs VS - Last 72 Hours, by Label POS 01/11/19 01/11/19 01/11/19 01/11/19 11:05 11:05 11:39 12:37 Temp 38.3 38.74128 Pulse 113 131 120 Resp 28 43 20 B/P (MAP) 199/107 (137) 150/100 Pulse Ox 94 95 100 96 O2 Delivery OxyMask OxyMask O2 Flow Rate 10.00 10.00 65.00 01/11/19 01/11/19 01/11/19 01/11/19 12:53 14:13 14:30 14:30 Pulse 91 89 94 100 Resp 16 34 B/P (MAP) 91/56 101/61 131/78 (95) Pulse Ox 99 90 91 O2 Delivery Mechanical Ventilator Mechanical Ventilator O2 Flow Rate 40.00 FiO2 50 01/11/19 01/11/19 01/11/19 01/11/19 15:00 15:37 15:50 16:00 Temp 37.6 Pulse 83 86 95 Resp 19 20 20 B/P (MAP) 144/80 (101) 109/43 (65) Pulse Ox 100 97 90 O2 Delivery Mechanical Ventilator Mechanical Ventilator O2 Flow Rate 40.00 30.00 FiO2 30 01/11/19 01/11/19 01/11/19 01/11/19 16:16 16:24 16:58 17:00 Temp 38.3 Pulse 113 79 Resp 20 B/P (MAP) 158/62 (94) Pulse Ox 94 91 97 O2 Delivery Mechanical Ventilator Mechanical Ventilator Mechanical Ventilator O2 Flow Rate 40.00 40.00 FiO2 30 01/11/19 01/11/19 01/11/19 01/11/19 17:26 18:00 18:29 19:53 Temp 37.9 Pulse 72 79 Resp 20 20 B/P (MAP) 71/39 143/58 (86) Pulse Ox 96 98 O2 Delivery Mechanical Ventilator O2 Flow Rate 40.00 FiO2 40 Capillary Refill : Less Than 3 Seconds General Appearance: obese, other (Sedated and intubated) Respiratory: crackles, wheezing Cardiovascular: regular rate, rhythm, no murmur Gastrointestinal: normal bowel sounds, soft, no organomegaly Extremities: pedal edema (4+ bilaterally with chronic venous statis changes and erythema) Neurologic/Psychiatric: disoriented x 3 Skin: rash Assessment/Plan Assessment/Plan Admission Status: Inpatient Order (span 2 midnights) Reason for Inpatient Admission: requiring intubation and IV antibiotics (1) Acute on chronic respiratory failure with hypoxia Status: Acute Assessment & Plan: - Patient intubated and sedated, Dr Contreras consult and managing (2) Pulmonary HTN Status: Chronic Assessment & Plan: - Echo showed normal EF with elevated arterial pressures, Dr Gutiérrez consulted and managing (3) Pulmonary edema Status: Acute Assessment & Plan: - Elevated BNP, daily CXRs with diuresis (4) Lower extremity cellulitis Status: Chronic Assessment & Plan: - Bilateral, continue antibiotics (5) CAD (coronary artery disease) Status: Chronic Qualifiers: Qualified Codes: I25.10 - Atherosclerotic heart disease of [place] coronary artery without angina pectoris (6) Obesity hypoventilation syndrome Status: Chronic Assessment & Plan: - Bipap at home (7) Normocytic anemia Status: Chronic Assessment & Plan: - Stable, no signs of acute bleeding (8) Diabetes mellitus with hyperglycemia Status: Chronic Assessment & Plan: - SSI Qualifiers: Qualified Codes: E11.65 - Type 2 diabetes mellitus with hyperglycemia; Z79.4 - detention (current) use of insulin (9) Atrial fibrillation with rapid ventricular response Status: Acute (10) Bilateral pneumonia Status: Acute Qualifiers: Qualified Codes: J18.9 - Pneumonia, unspecified organism (11) DVT prophylaxis Status: Acute Assessment & Plan: - Lovenox Clinical Quality Measures DVT/VTE Risk/Contraindication: Risk Factor Score Per Nursin RFS Level Per Nursing on Admit: 4+=Very High Contraindications-Mechi: Other *list below* Other: Per no lovenox due to patient being on eliquis Copy Copies To 1: EB ALEXIS MD, HOLLY R MD Jan 11, 2019 22:09 POS
[2019-01-11] MEDS ORDERED: ENOXAPARIN 40 MG/0.4 ML (LOVENOX) SYR SQ SCH (22:15)
[2019-01-12] VITALS (30 sets, daily range): BP systolic 86–157; BP diastolic 41–67
[2019-01-12] MEDS: inSUlin ASPART (NovoLOG) 1 UNIT/0.01 ML (CHARGE PER UNIT) SQ SCH ×4 (00:14→18:27)
[2019-01-12] MEDS ORDERED: NS (IVPB) 0 ML ONE (01:27)
[2019-01-12] MEDS: DEXMEDETOMIDINE INJECTION 1,000 MCG in NS (IVPB) 240 ML IV SCH ×6 (01:32→20:58)
[2019-01-12] MEDS: RT-ALBUTEROL/IPRATROPIUM 3 ML (DUONEB) VIAL INH SCH ×6 (01:42→21:27)
--- NOTE | 2019-01-12 02:14 | NUR ---
PRECEDEX THAT WAS HUNG AT 0132 WAS A KIT PULLED FROM THE Plibber AND WAS NOT THE 1000 MCG IN 250 MLS, INSTEAD IT WAS 200 MCG IN 50 MLS. WHEN I SCANNED THE 200 MCG VIAL THAT CAME WITH THE NURSE-PREPARED KIT IT AUTOMATICALLY ASSOCIATED IT WITH THE 1000 MCGS IN 250 MLS.
--- NOTE | 2019-01-12 02:24 | NUR ---
PT DOES NOT TOLERATE TURNS VERY WELL
[2019-01-12] MEDS ORDERED: NS (IVPB) 50 ML ONE (02:35)
[2019-01-12] MEDS ORDERED: NS (IVPB) 250 ML ONE (02:38)
[2019-01-12] MEDS: PIPERACILLIN/TAZO 4.5 GM/NS 100 ML IV SCH ×6 (03:03→18:34)
[2019-01-12] MEDS: VANCOMYCIN 1500 MG/NS 500 ML IVPB IV SCH ×4 (03:03→15:37)
[2019-01-12 03:33] LABS: BASOPHILS % (AUTO) 0 % (0-10); EOSINOPHILS # (AUTO) 0.1 10^3/uL (0.0-0.3); EOSINOPHILS % (AUTO) 2 % (0-10); HEMATOCRIT 26 % (40-54); LYMPHOCYTES # (AUTO) 1.4 X 10^3 (1.0-4.0); LYMPHOCYTES % (AUTO) 23 % (12-44); MEAN CORPUSCULAR HEMOGLOBIN 30 PG (25-34); MEAN CORPUSCULAR HGB CONC 31 G/DL (32-36); MEAN CORPUSCULAR VOLUME 96 FL (80-99); MEAN PLATELET VOLUME 9.2 FL (7.4-10.4); MONOCYTES # (AUTO) 0.4 X 10^3 (0.0-1.0); MONOCYTES % (AUTO) 6 % (0-12); NEUTROPHILS # (AUTO) 4.3 X 10^3 (1.8-7.8); NEUTROPHILS % (AUTO) 69 % (42-75); PLATELET COUNT 159 10^3/uL (130-400); WHITE BLOOD COUNT 6.2 10^3/uL (4.3-11.0)
[2019-01-12 03:34] LABS: ABG BASE EXCESS 5.6 MMOL/L (-2.5-2.5); ABG OXYGEN SATURATION 95 % (94-100); ABG PCO2 49 MMHG (35-45); ABG PO2 59 MMHG (79-93); ABG TCO2 31.8 MMOL/L (21.0-31.0)
[2019-01-12 03:39] LABS: ALLENS TEST ARTLINE
[2019-01-12 03:40] LABS: INSPIRED O2 30%; PATIENT TEMP 36.9; VENTILATOR YES
--- NOTE | 2019-01-12 03:49 | NUR ---
IV PUMP ONLY HAS A SETTING FOR PRECEDEX SMALL BAG (200 mcg's IN 50 ML BAG). LAST HUNG WAS A NURSE-PREPARED 250 ML BAG WITH 1000 mcg's PRECEDEX ADDED IN. PT IS REQUIRING SUCH A HIGH RATE OF PRECEDEX (1.[address] SMITH) THAT THE BIG BAG WAS NEEDED. SEE IV SPREADSHEET FOR DOSE AND RATE.
[2019-01-12 03:50] LABS: ALBUMIN 2.6 GM/DL (3.2-4.5); BILIRUBIN,TOTAL 0.5 MG/DL (0.1-1.0); CALCIUM 8.2 MG/DL (8.5-10.1); CREATININE SERUM 1.82 MG/DL (0.60-1.30); MAGNESIUM 1.8 MG/DL (1.6-2.4); PHOSPHORUS 3.9 MG/DL (2.3-4.7); POTASSIUM 5.8 MMOL/L (3.6-5.0); TOTAL PROTEIN 5.1 GM/DL (6.4-8.2)
[2019-01-12] MEDS: MAGNESIUM 1 GM/100 ML IVPB 100 ML IV SCH (04:05)
--- NOTE | 2019-01-12 05:11 | Pulmonary Progress Note ---
Subjective Time Seen by a Provider: 10:47 Subjective/Events-last exam sed on vent Sepsis Event Evaluation Height, Weight, BMI Height: 5'11" Weight: 260lbs. 0.0oz. 117.697428nc; 54.10 BMI Method:Stated Focused Exam Lactate Level 01/11/19 11:10: Lactic Acid Level 1.47 Exam Exam Vital Signs Date Time Temp Pulse Resp B/P (MAP) Pulse Ox O2 Delivery O2 Flow Rate FiO2 01/12/19 04:24 105 29 157/67 (97) 95 Mechanical Ventilator 25.00 01/12/19 04:00 Mechanical Ventilator 30 01/12/19 04:00 92 26 124/53 (76) 93 Mechanical Ventilator 30.00 01/12/19 03:00 98 23 115/56 (75) 93 Mechanical Ventilator 30.00 01/12/19 02:00 90 21 100/51 (67) 92 Mechanical Ventilator 30.00 01/12/19 01:42 91 25 92 30 01/12/19 01:00 90 21 135/58 (83) 98 Mechanical Ventilator 30.00 01/12/19 01:00 90 01/12/19 00:00 86 25 96/43 (60) 94 Mechanical Ventilator 40.00 01/12/19 00:00 Mechanical Ventilator 40 01/11/19 23:30 Mechanical Ventilator 01/11/19 23:00 95 21 121/52 (75) 95 Mechanical Ventilator 40.00 01/11/19 22:05 76 20 96 40 01/11/19 22:00 80 20 118/54 (75) 96 Mechanical Ventilator 40.00 01/11/19 21:00 85 20 128/56 (80) 96 Mechanical Ventilator 40.00 01/11/19 20:00 78 20 124/60 (81) 95 Mechanical Ventilator 40.00 01/11/19 20:00 Mechanical Ventilator 40 01/11/19 19:53 37.9 01/11/19 19:00 91 01/11/19 19:00 91 19 105/54 (71) 95 Mechanical Ventilator 40.00 01/11/19 18:29 79 20 98 40 01/11/19 18:00 72 20 143/58 (86) 96 Mechanical Ventilator 40.00 01/11/19 17:26 71/39 01/11/19 17:00 79 20 158/62 (94) 97 Mechanical Ventilator 40.00 01/11/19 16:58 Mechanical Ventilator 40.00 01/11/19 16:24 91 Mechanical Ventilator 30 01/11/19 16:16 38.3 113 94 01/11/19 16:00 95 20 109/43 (65) 90 Mechanical Ventilator 30.00 01/11/19 15:50 37.6 01/11/19 15:37 86 20 97 30 01/11/19 15:00 83 19 144/80 (101) 100 Mechanical Ventilator 40.00 01/11/19 14:30 100 91 50 01/11/19 14:30 94 34 131/78 (95) 90 Mechanical Ventilator 40.00 01/11/19 14:13 89 16 101/61 99 Mechanical Ventilator 01/11/19 12:53 91 91/56 01/11/19 12:37 38.09640 120 20 150/100 96 01/11/19 11:39 131 43 100 65.00 01/11/19 11:05 38.3 113 28 199/107 (137) 95 OxyMask 10.00 01/11/19 11:05 94 OxyMask 10.00 I & O 01/12/19 07:00 Intake Total 1574 ml Output Total 2500 ml Balance -926 ml Height & Weight Height: 5'11" Weight: 260lbs. 0.0oz. 117.929502yq; 54.10 BMI Method:Stated General Appearance: Moderate Distress, Obese HEENT: PERRL/EOMI, Pharynx Normal Neck: Full Range of Motion, Normal Inspection, Non Tender, Supple Respiratory: Crackles (bilateral up to mid lung), Respiratory Distress Cardiovascular: No Murmur, Irregularly Irregular, Tachycardia Capillary Refill: Less Than 3 Seconds Gastrointestinal: normal bowel sounds, soft, no organomegaly Extremity: Pedal Edema (4+ to above the knees bilateral), Pelvis Stable Neurologic/Psychiatric: Disoriented Skin: Normal Color, Warm/Dry Lymphatic: No Adenopathy Results Lab Laboratory Tests 01/11/19 11:10 01/12/19 03:20 Assessment/Plan Assessment/Plan Acute respiratory failure -Intubated in ED -repeat labs -repeat ABG Pulmonary edema with bilateral pleural effusions -Check echocardiogram Hypotension -Check echo Morbid obesity with OHS and LUIGI Multiple hospitalizations Anemia -Monitor DEJA SMITH DO Jan 12, 2019 05:11 POS
[2019-01-12] MEDS ORDERED: ALBUMIN 25% 25 GM/100 ML 100 ML IV ONE ×2 (05:15→05:22)
[2019-01-12] MEDS ORDERED: inSUlin (REGULAR) HUMAN 1 UNIT/0.01 ML (CHARGE PER UNIT) IV ONE (05:15)
[2019-01-12] MEDS ORDERED: NS IV 1000 ML 1,000 ML IV SCH (05:15)
[2019-01-12] MEDS ORDERED: MAGNESIUM 1 GM/100 ML IVPB 100 ML IV ONE (05:15)
[2019-01-12] MEDS ORDERED: NS IV 1000 ML 1,000 ML ONE (05:20)
[2019-01-12] MEDS ORDERED: NS IV 500 ML 500 ML ONE (05:20)
[2019-01-12] MEDS: NS IV 500 ML 500 ML IV SCH ×2 (05:30→06:15)
[2019-01-12] MEDS ORDERED: inSUlin (REGULAR) HUMAN 1 UNIT/0.01 ML (CHARGE PER UNIT) ONE (05:31)
[2019-01-12] MEDS ORDERED: KCL 20 MEQ TAB (K-DUR) PO SCH (06:00)
[2019-01-12] MEDS ORDERED: POTASSIUM CL 10MEQ/50ML IVPB 50 ML IV SCH (06:00)
[2019-01-12] MEDS: PROPOFOL DRIP (ICU) 100 ML IV SCH ×5 (06:13→21:45)
[2019-01-12] MEDS: NS IV 1000 ML 1,000 ML IV SCH ×2 (06:44→15:43)
--- NOTE | 2019-01-12 07:19 | Diagnostic Imaging Report ---
INDICATION: Shortness of breath intubated. COMPARISON: 01/11/2019 FINDINGS: Single view of the chest demonstrates well-positioned support lines. Infiltrates persist but have decreased in the right hemithorax. Infiltrates on the left are unchanged. There are stable bilateral pleural effusions. There is no pneumothorax. IMPRESSION: 1. Stable support lines. 2. Improved aeration of right hemithorax. 3. Unchanged infiltrates left hemithorax. 4. Stable bilateral pleural effusions. Dictated by: Dictated on workstation # [id number]
[2019-01-12] MEDS: PANTOPRAZOLE 40 MG (PROTONIX) VIAL IV SCH ×2 (07:55→21:20)
--- NOTE | 2019-01-12 08:39 | Physical Therapy Progress Note ---
Therapy Progress Note PT eval orders received and chart reviewed. Patient is currently intubated and sedated, will monitor patient and attempt PT when he is able to participate. MARINO VEGA PT Jan 12, 2019 08:38 POS
--- NOTE | 2019-01-12 08:45 | Cardiology Progress Note ---
Subjective Date Seen by Provider: Jan 12, 2019 Time Seen by Provider: 08:42 Subjective/Events-last exam Patient is sedated and intubated, no apparent distress Review of Systems General: Other (Unable to provide review of systems) Focused Exam Lactate Level 01/11/19 11:10: Lactic Acid Level 1.47 Objective-Cardiology Exam Last Set of Vital Signs Vital Signs 01/12/19 01/12/19 12:00 14:04 Temp 36.8 Pulse 80 Resp 20 Pulse Ox 97 FiO2 30 Capillary Refill : Less Than 3 Seconds I&O Intake and Output 01/12/19 00:00 Intake Total 1324 ml Output Total 1900 ml Balance -576 ml Intake Oral 0 ml IV Total 1324 ml Output Urine Total 1900 ml Daily Weight Change No General: Other (sedated and intubated) HEENT: Atraumatic Neck: Supple, No JVD Lungs: Other (rhonchi) Heart: No Murmurs, Other (irregularly irregular) Abdomen: Normal Bowel Sounds, Soft Extremities: Other (+1 edema) Skin: No Rashes, No Significant Lesion Results Lab Laboratory Tests 01/12/19 03:20 A/P-Cardiology Admission Diagnosis Acute respiratory failure Pulmonary edema Pneumonia Congestive heart failure, acute on chronic left ventricular diastolic dysfunction Assessment/Plan Acute respiratory failure, ventilatory dependent, progressed quickly into re spiratory failure. Continue on antibiotics. Continue to diurese. Congestive heart failure, echocardiogram showed normal left ventricular size and function with ejection fraction 60 percent, left atrial dilatation with severe pulmonary hypertension with PA pressure 50-60 mmHg. BNP is elevated, probably acute on chronic left ventricular diastolic dysfunction. Receiving diuretics. Continue to monitor Acute exacerbation of COPD with pneumonia, receiving antibiotics. Managed by primary care team Paroxysmal atrial fibrillation, back in atrial fibrillation with controlled rate, given one dose of Cardizem bolus. Unable to tolerate the drip due to hypotension Hyperkalemia- d/c potassium. Continue to monitor. Hypotensive shock secondary to sepsis and pneumonia. Maintained on pressors at this time. Extensive peripheral edema, chronic edema. Cor pulmonale with severe pulmonary hypertension and venous stasis changes. Acute on chronic renal insufficiency, monitor renal function Cellulitis, treated on the previous admission earlier this month. Currently receiving antibiotics. COPD, acute exacerbation, improving, maintained on prednisone at this time and managed by primary care team Morbid obesity, obesity hypoventilation syndrome and acute respiratory failure. Managed by Dr. Contreras Coronary artery disease, history of cardiac catheterization done in 2015 showing coronary ectasia with slow flow, no significant obstructive disease. Conservative management Hyperlipidemia, monitor lipids Diabetes mellitus, followed and managed by primary care physician Patient was seen and evaluated with Charu, examination performed, management plan was discussed, agree with the current scribed note, I made few changes to the note using Italic font Patient is sedated and intubated, labile blood pressure, currently off all pressors. Borderline blood pressure I discussed with the nurse the management, recommended weaning trial today while he is off pressors Heart rate is controlled, not on Cardizem drip Hypokalemia replaced, monitor electrolytes Extensive peripheral edema due to chronic diastolic dysfunction and venous stasis changes Morbid obesity with exacerbation of COPD Clinical Quality Measures DVT/VTE Risk/Contraindication: Risk Factor Score Per Nursin RFS Level Per Nursing on Admit: 4+=Very High Contraindications-Mechi: Other *list below* Other: Per no lovenox due to patient being on eliquis CHARU SHELDON Jan 12, 2019 08:45 AMI HINSON MD Jan 12, 2019 14:36 POS
[2019-01-12] MEDS ORDERED: PANTOPRAZOLE 40 MG (PROTONIX) VIAL IV SCH (09:00)
[2019-01-12 09:52] LABS: OCCULT BLOOD,GASTRIC FLUID POSITIVE (NEGATIVE)
--- NOTE | 2019-01-12 11:17 | Occ Therapy Progress Note ---
Therapy Progress Note Pt on mechanical ventilation, will check on pt following day to eval/ treat when medically stable and able to participate in skilled therapy sessions. CHRIS DELGADILLO OTR Jan 12, 2019 11:17 POS
[2019-01-12] MEDS ORDERED: ENOXAPARIN 100 MG/1 ML (LOVENOX) SYR SC SCH (13:30)
[2019-01-12] MEDS ORDERED: HEParin DRIP 25000 UNIT/500ML 500 ML IV SCH (13:42)
[2019-01-12] MEDS ORDERED: HEParin 1000 UNIT/ML (10ML VIAL) FOR BOLUS IV SCH (13:45)
--- NOTE | 2019-01-12 13:45 | NUR ---
OK TO DC LOVENOX & START HEPARIN FULL PROTOCOL RBTO DANIELA AVERY 1342 01-12-19
[2019-01-12 14:43] LABS: HEMOGLOBIN 7.3 G/DL (13.3-17.7)
--- NOTE | 2019-01-12 16:49 | Progress Note ---
Subjective Subjective/Events-last exam Patient sedated and intubated. Nurse reported that he was agitated last night. Otherwise no ON events Review of Systems Intubated and Sedated Focused Exam Lactate Level 01/11/19 11:10: Lactic Acid Level 1.47 Objective Exam Last Set of Vital Signs Vital Signs Date Time Temp Pulse Resp B/P (MAP) Pulse Ox O2 Delivery O2 Flow Rate FiO2 01/12/19 16:00 36.4 01/12/19 16:00 Mechanical Ventilator 30 01/12/19 16:00 92 21 111/51 (71) 97 30.00 Capillary Refill : Less Than 3 Seconds I&O Intake and Output 01/12/19 00:00 Intake Total 1324 ml Output Total 1900 ml Balance -576 ml Intake Oral 0 ml IV Total 1324 ml Output Urine Total 1900 ml Daily Weight Change No General: Other (Intubated and sedated) Lungs: Other (diminished breath sounds, breathing with vent) Heart: Regular Rate Abdomen: Soft Extremities: Other (anasarca to abdomen) Results/Procedures Lab Laboratory Tests 01/11/19 18:09: Glucometer 179H 01/11/19 21:10: Glucometer 179H 01/12/19 03:20: White Blood Count 6.2, Red Blood Count 2.71L, Hemoglobin 8.0L, Hematocrit 26L, Mean Corpuscular Volume 96, Mean Corpuscular Hemoglobin 30, Mean Corpuscular Hemoglobin Concent 31L, Red Cell Distribution Width 16.0H, Platelet Count 159, Mean Platelet Volume 9.2, Neutrophils (%) (Auto) 69, Lymphocytes (%) (Auto) 23, Monocytes (%) (Auto) 6, Eosinophils (%) (Auto) 2, Basophils (%) (Auto) 0, Neutrophils # (Auto) 4.3, Lymphocytes # (Auto) 1.4, Monocytes # (Auto) 0.4, Eosinophils # (Auto) 0.1, Basophils # (Auto) 0.0, Blood Gas Puncture Site RIGHT RADIAL, Blood Gas Patient Temperature 36.9, Arterial Blood pH 7.40, Arterial Blood Partial Pressure CO2 49H, Arterial Blood Partial Pressure O2 59L, Arterial Blood HCO3 30H, Arterial Blood Total CO2 31.8H, Arterial Blood Oxygen Saturation 95, Arterial Blood Base Excess 5.6H, Gurwinder Test ARTLINE, Blood Gas Ventilator Setting YES, Blood Gas Inspired Oxygen 30%, Sodium Level 139, Potassium Level 5.8H, Chloride Level 103, Carbon Dioxide Level 27, Anion Gap 9, Blood Urea Nitrogen 40H, Creatinine 1.82H, Estimat Glomerular Filtration Rate 38, BUN/Creatinine Ratio 22, Glucose Level 203H, Calcium Level 8.2L, Corrected Calcium 9.3, Phosphorus Level 3.9, Magnesium Level 1.8, Total Bilirubin 0.5, Aspartate Amino Transf (AST/SGOT) 16, Alanine Aminotransferase (ALT/SGPT) 34, Alkaline Phosphatase 43, Total Protein 5.1L, Albumin 2.6L 01/12/19 06:34: Glucometer 190H 01/12/19 07:53: Glucometer 168H 01/12/19 08:46: Glucometer 194H 01/12/19 09:33: Gastric Fluid Occult Blood POSITIVEH 01/12/19 10:03: Glucometer 207H 01/12/19 11:18: Glucometer 197H 01/12/19 14:33: Hemoglobin 7.3L, Hematocrit 24L Microbiology 01/11/19 Gram Stain - Final, Resulted 01/11/19 Sputum Culture - Preliminary, Resulted Usual upper respiratory kathryn 01/11/19 Urine Culture - Final, Complete NO GROWTH Assessment/Plan Assessment/Plan (1) Acute on chronic respiratory failure with hypoxia Status: Acute Assessment & Plan: - Patient intubated and sedated, Dr Contreras consult and managing (2) Pulmonary HTN Status: Chronic Assessment & Plan: - Echo showed normal EF with elevated arterial pressures, Dr Gutiérrez consulted and managing 01/12: gentle diuresis but blood pressures have been low (3) Pulmonary edema Status: Acute Assessment & Plan: - Elevated BNP, daily CXRs with diuresis (4) Lower extremity cellulitis Status: Chronic Assessment & Plan: - Bilateral, continue antibiotics (5) CAD (coronary artery disease) Status: Chronic Qualifiers: Qualified Codes: I25.10 - Atherosclerotic heart disease of [place] coronary artery without angina pectoris (6) Obesity hypoventilation syndrome Status: Chronic Assessment & Plan: - Bipap at home (7) Normocytic anemia Status: Chronic Assessment & Plan: - Stable, no signs of acute bleeding (8) Diabetes mellitus with hyperglycemia Status: Chronic Assessment & Plan: - SSI Qualifiers: Qualified Codes: E11.65 - Type 2 diabetes mellitus with hyperglycemia; Z79.4 - nursing home (current) use of insulin (9) Atrial fibrillation with rapid ventricular response Status: Acute (10) Bilateral pneumonia Status: Acute Qualifiers: Qualified Codes: J18.9 - Pneumonia, unspecified organism (11) DVT prophylaxis Status: Acute Assessment & Plan: - Lovenox Clinical Quality Measures DVT/VTE Risk/Contraindication: Risk Factor Score Per Nursin RFS Level Per Nursing on Admit: 4+=Very High Contraindications-Mechi: Other *list below* Other: Per no lovenox due to patient being on NANDA Costello MD Jan 12, 2019 16:49 POS
--- NOTE | 2019-01-12 17:15 | NUR ---
This nurse notified of patients hgb and hct, orders received to type and scree, give 1 unit PRBC and to discontinue lovenox.
[2019-01-12] MEDS ORDERED: ENOXAPARIN 40 MG/0.4 ML (LOVENOX) SYR SC SCH (21:00)
[2019-01-13] VITALS (24 sets, daily range): BP systolic 99–178; BP diastolic 45–98
[2019-01-13] MEDS: PROPOFOL DRIP (ICU) 100 ML IV SCH ×4 (00:20→08:34)
[2019-01-13] MEDS: inSUlin ASPART (NovoLOG) 1 UNIT/0.01 ML (CHARGE PER UNIT) SQ SCH ×5 (00:28→23:52)
[2019-01-13] MEDS: DEXMEDETOMIDINE INJECTION 1,000 MCG in NS (IVPB) 240 ML IV SCH ×4 (01:00→18:24)
[2019-01-13] MEDS: RT-ALBUTEROL/IPRATROPIUM 3 ML (DUONEB) VIAL INH SCH ×6 (02:04→21:46)
[2019-01-13] MEDS: VANCOMYCIN 1500 MG/NS 500 ML IVPB IV SCH ×2 (02:32)
[2019-01-13] MEDS: NS IV 1000 ML 1,000 ML IV SCH ×2 (02:38→08:33)
[2019-01-13 03:25] LABS: ABG BASE EXCESS 2.9 MMOL/L (-2.5-2.5); ABG OXYGEN SATURATION 93 % (94-100); ABG PCO2 44 MMHG (35-45); ABG PO2 57 MMHG (79-93); ABG TCO2 28.8 MMOL/L (21.0-31.0)
[2019-01-13 03:29] LABS: ALLENS TEST ART LINE; INSPIRED O2 30%; VENTILATOR YES
[2019-01-13 03:30] LABS: PATIENT TEMP 36.3
[2019-01-13 03:31] LABS: BASOPHILS % (AUTO) 0 % (0-10); EOSINOPHILS # (AUTO) 0.2 10^3/uL (0.0-0.3); EOSINOPHILS % (AUTO) 3 % (0-10); HEMATOCRIT 26 % (40-54); HEMOGLOBIN 8.1 G/DL (13.3-17.7); LYMPHOCYTES # (AUTO) 1.3 X 10^3 (1.0-4.0); LYMPHOCYTES % (AUTO) 23 % (12-44); MEAN CORPUSCULAR HEMOGLOBIN 29 PG (25-34); MEAN CORPUSCULAR HGB CONC 31 G/DL (32-36); MEAN CORPUSCULAR VOLUME 94 FL (80-99); MEAN PLATELET VOLUME 9.4 FL (7.4-10.4); MONOCYTES # (AUTO) 0.3 X 10^3 (0.0-1.0); MONOCYTES % (AUTO) 6 % (0-12); NEUTROPHILS # (AUTO) 3.7 X 10^3 (1.8-7.8); NEUTROPHILS % (AUTO) 68 % (42-75); PLATELET COUNT 159 10^3/uL (130-400); WHITE BLOOD COUNT 5.5 10^3/uL (4.3-11.0)
[2019-01-13 03:53] LABS: ALBUMIN 2.4 GM/DL (3.2-4.5); BILIRUBIN,TOTAL 0.5 MG/DL (0.1-1.0); CALCIUM 7.6 MG/DL (8.5-10.1); CREATININE SERUM 1.65 MG/DL (0.60-1.30); TOTAL PROTEIN 4.9 GM/DL (6.4-8.2)
[2019-01-13] MEDS: PIPERACILLIN/TAZO 4.5 GM/NS 100 ML IV SCH ×6 (03:59→18:30)
[2019-01-13] MEDS ORDERED: BUMETANIDE 1 MG/4 ML (BUMEX) VIAL IV ONE (04:15)
--- NOTE | 2019-01-13 04:18 | Pulmonary Progress Note ---
Subjective Time Seen by a Provider: 04:31 Subjective/Events-last exam Pt is off Levophed currently. currently sedated on vent Sepsis Event Evaluation Height, Weight, BMI Height: 5'11" Weight: 260lbs. 0.0oz. 117.370314ew; 54.10 BMI Method:Stated Focused Exam Lactate Level 01/11/19 11:10: Lactic Acid Level 1.47 Exam Exam Vital Signs Date Time Temp Pulse Resp B/P (MAP) Pulse Ox O2 Delivery O2 Flow Rate FiO2 01/13/19 03:57 36.3 01/13/19 02:35 Mechanical Ventilator 01/13/19 02:04 88 20 96 30 01/13/19 00:20 92 25 115/55 98 Mechanical Ventilator 30.00 01/13/19 00:00 102 20 107/51 (69) 96 Mechanical Ventilator 30.00 01/12/19 23:30 36.0 01/12/19 23:00 96 20 111/52 (71) 96 Mechanical Ventilator 30.00 01/12/19 22:00 87 22 113/53 (73) 94 Mechanical Ventilator 30.00 01/12/19 21:45 Mechanical Ventilator 01/12/19 21:44 36.4 87 20 120/54 95 Mechanical Ventilator 30 01/12/19 21:27 94 21 95 30 01/12/19 21:00 88 21 115/51 (72) 94 Mechanical Ventilator 30.00 01/12/19 20:00 88 21 116/53 (74) 98 Mechanical Ventilator 30.00 01/12/19 20:00 36.7 01/12/19 19:00 91 01/12/19 19:00 91 20 109/48 (68) 98 Mechanical Ventilator 30.00 01/12/19 18:48 36.2 90 20 110/48 98 Mechanical Ventilator 30 01/12/19 18:42 36.0 107 20 107/48 98 Mechanical Ventilator 30 01/12/19 18:33 105/47 01/12/19 18:21 87 20 98 30 01/12/19 18:00 78 20 101/48 (65) 98 Mechanical Ventilator 30.00 01/12/19 17:00 76 19 105/48 (67) 97 Mechanical Ventilator 30.00 01/12/19 16:00 36.4 01/12/19 16:00 Mechanical Ventilator 30 01/12/19 16:00 92 21 111/51 (71) 97 Mechanical Ventilator 30.00 01/12/19 15:34 109/50 01/12/19 15:00 93 21 105/49 (67) 96 Mechanical Ventilator 30.00 01/12/19 14:04 80 20 97 30 01/12/19 14:00 87 20 101/49 (66) 96 Mechanical Ventilator 30.00 01/12/19 13:00 84 20 100/49 (66) 95 Mechanical Ventilator 30.00 01/12/19 13:00 84 01/12/19 12:00 101 20 106/50 (68) 96 Mechanical Ventilator 30.00 01/12/19 12:00 Mechanical Ventilator 30 01/12/19 12:00 36.8 01/12/19 11:10 107/48 01/12/19 11:00 97 19 107/50 (69) 97 Mechanical Ventilator 30.00 01/12/19 10:00 105 21 97/48 (64) 96 Mechanical Ventilator 30.00 01/12/19 09:39 97 22 96 30 01/12/19 09:00 86 20 113/54 (73) 95 Mechanical Ventilator 30.00 01/12/19 08:00 84 23 146/60 (88) 95 Mechanical Ventilator 30.00 01/12/19 08:00 Mechanical Ventilator 30 01/12/19 07:00 93 22 88/41 (57) 93 Mechanical Ventilator 30.00 01/12/19 07:00 93 01/12/19 06:15 91 26 140/59 (86) 96 Mechanical Ventilator 30.00 01/12/19 06:13 Mechanical Ventilator 01/12/19 05:56 86 33 97 30 01/12/19 05:00 95 21 127/57 (80) 96 Mechanical Ventilator 30.00 01/12/19 04:57 102 20 116/55 (75) 99 Mechanical Ventilator 30.00 01/12/19 04:24 105 29 157/67 (97) 95 Mechanical Ventilator 25.00 I & O 01/13/19 07:00 Intake Total 3320 ml Output Total 1525 ml Balance 1795 ml Height & Weight Height: 5'11" Weight: 260lbs. 0.0oz. 117.900816ie; 54.10 BMI Method:Stated General Appearance: Chronically ill, Obese, Other (sedated on vent) HEENT: PERRL/EOMI, Pharynx Normal Neck: Full Range of Motion, Normal Inspection, Non Tender, Supple Respiratory: Crackles (bilateral up to mid lung), Respiratory Distress Cardiovascular: No Murmur, Irregularly Irregular, Tachycardia Capillary Refill: Less Than 3 Seconds Gastrointestinal: normal bowel sounds, soft, no organomegaly Extremity: Pedal Edema (4+ to above the knees bilateral), Pelvis Stable Neurologic/Psychiatric: Alert, Disoriented Skin: Normal Color, Warm/Dry Results Lab Laboratory Tests 01/11/19 11:10 01/12/19 03:20 01/12/19 14:33 01/13/19 03:12 Assessment/Plan Assessment/Plan Acute respiratory failure -Will attempt to wean vent today -SBP is improved will give 2mg of Bumex x 1. Repeat Albumin 25mg IV x 1. Pulmonary edema with bilateral pleural effusions -echocardiogram shows normal EF Pneumonia - present on admission -D/C Vanco -Continue Zosyn for now -Rojas cultures pending Acute renal failure -Monitor Hypotension -Currently off Levophed Morbid obesity with OHS and LUIGI Multiple hospitalizations Anemia -Monitor DEJA SMITH DO Jan 13, 2019 04:18 POS
[2019-01-13] MEDS ORDERED: ALBUMIN 25% 25 GM/100 ML 100 ML IV ONE ×2 (04:30→05:31)
[2019-01-13] MEDS ORDERED: BUMETANIDE 1 MG/4 ML (BUMEX) VIAL ONE (05:04)
[2019-01-13] MEDS: MAGNESIUM 1 GM/100 ML IVPB 100 ML IV SCH (05:06)
--- NOTE | 2019-01-13 07:21 | Cardiology Progress Note ---
Subjective Date Seen by Provider: Jan 13, 2019 Time Seen by Provider: 07:19 Subjective/Events-last exam Patient is laying down in bed, sedated and intubated Review of Systems General: Other (Sedated and intubated, unable to provide review of systems) Focused Exam Lactate Level 01/11/19 11:10: Lactic Acid Level 1.47 Objective-Cardiology Exam Last Set of Vital Signs Vital Signs 01/13/19 01/13/19 01/13/19 03:57 06:00 06:28 Temp 36.3 Pulse 89 Resp 21 B/P (MAP) 113/49 (70) Pulse Ox 97 O2 Delivery Mechanical Ventilator O2 Flow Rate 30.00 FiO2 30 Capillary Refill : Less Than 3 Seconds I&O Intake and Output 01/13/19 00:00 Intake Total 4335 ml Output Total 2085 ml Balance 2250 ml Intake Oral 0 ml IV Total 4335 ml Output Urine Total 1835 ml Gastric Drainage Total 250 ml General: Other (Intubated and sedated) HEENT: Atraumatic Neck: Supple, No JVD Lungs: Other (diminished breath sounds, breathing with vent) Heart: Normal S1, Normal S2, Other (Atrial fibrillation) Abdomen: Soft Extremities: Other (anasarca to abdomen) Skin: No Rashes, No Significant Lesion Neuro: Other (Sedated and intubated) Psych/Mental Status: Other (Sedated and intubated) Results Lab Laboratory Tests 01/12/19 14:33 01/13/19 03:12 A/P-Cardiology Admission Diagnosis Acute respiratory failure Pulmonary edema Pneumonia Congestive heart failure, acute on chronic left ventricular diastolic dysfun ction Assessment/Plan Acute respiratory failure, ventilatory dependent, possible weaning today. Managed by Dr. Contreras Congestive heart failure, echocardiogram showed normal left ventricular size and function with ejection fraction 60 percent, left atrial dilatation with severe pulmonary hypertension with PA pressure 50-60 mmHg. BNP is elevated, probably acute on chronic left ventricular diastolic dysfunction. Receiving diuretics. Continue to monitor Acute exacerbation of COPD with pneumonia, receiving antibiotics. Managed by primary care team Paroxysmal atrial fibrillation, back in atrial fibrillation with controlled rate, given one dose of Cardizem bolus. Unable to tolerate the drip due to hypotension, continue to monitor Hypotensive shock secondary to sepsis and pneumonia. Maintained on pressors at this time. Extensive peripheral edema, chronic edema. Cor pulmonale with severe pulmonary hypertension and venous stasis changes. Acute on chronic renal insufficiency, monitor renal function Cellulitis, treated on the previous admission earlier this month. Currently receiving antibiotics. COPD, acute exacerbation, improving, maintained on prednisone at this time and managed by primary care team Morbid obesity, obesity hypoventilation syndrome and acute respiratory failure. Managed by Dr. Contreras Coronary artery disease, history of cardiac catheterization done in 2014 showing coronary ectasia with slow flow, no significant obstructive disease. Conservative management Hyperlipidemia, monitor lipids Diabetes mellitus, followed and managed by primary care physician Clinical Quality Measures DVT/VTE Risk/Contraindication: Risk Factor Score Per Nursin RFS Level Per Nursing on Admit: 4+=Very High Contraindications-Mechi: Other *list below* Other: Per no lovenox due to patient being on eliquis AMI SANTACRUZ MD Jan 13, 2019 07:20 POS
--- NOTE | 2019-01-13 07:31 | Diagnostic Imaging Report ---
INDICATION: Dyspnea Upright portable AP view of the chest is obtained. Since examination of one day earlier, support tubes and catheters remain stable position. There is continued cardiomegaly and pulmonary venous congestion. There has been a mild increase in diffuse airspace disease bilaterally. Presumed left upper lobe atelectasis is also noted. IMPRESSION: Increasing bilateral pulmonary edema or possible pneumonitis. Findings may be on the basis of congestive heart failure and clinical correlation is recommended. Dictated by: Dictated on workstation # [id number]
[2019-01-13] MEDS: PANTOPRAZOLE 40 MG (PROTONIX) VIAL IV SCH ×2 (08:09→21:16)
--- NOTE | 2019-01-13 08:18 | Physical Therapy Progress Note ---
Therapy Progress Note Patient is currently intubated and sedated. PT will assess when patient is extubated and able to participate in skilled physical therapy. DANIELLE CONTRERAS PT Jan 13, 2019 08:18 POS
--- NOTE | 2019-01-13 10:45 | NUR ---
Pastoral care visit with Pts .
--- NOTE | 2019-01-13 11:14 | Physician Query Clarification ---
PQ-Conflicting Diagnosis Admission/Discharge Admission Date: Jan 11, 2019 at 13:47 Discharge Date: The medical record reflects the following clinical scenario: History/Risk Factors: Pneumonia Acute on chronic respiratory failure with hypoxia. Clinical Findings: Vitals on admission: T 38.3, Pulse 113, Resp 28, BP 199/107. WBC 9.9, Lactic acid 1.47. Treatment: Intubation/Mechanical ventilation, IV antibiotics (Piperacillin Sod/Tazobactam Sod/Sodium Chloride). Question: Do you agree with the impression of the Severe sepsis per Dr. Enriquez' ED impression? Please document a response in Progress Note or Discharge Summary. 1. Yes 2. No 3. Other, with explanation of clinical findings 4. Clinically undetermined, no explanation for clinical findings. PHYSICIAN RESPONSE Do you agree w/Consulting Dx?: Yes Please remember a lack of response to the above will prompt a phone page by CDI/Coding staff. In responding to this query, please exercise your independent professional judgment. The purpose of this communication is to more accurately reflect the complexity of your patients condition. The fact that a question is asked does not imply that any particular answer is desired or expected. Thank you for your timely response to this clarification. Requestors name: Barbara Mcgovern [facility] Phone # ext [phone] or [phone] THIS PHYSICIAN QUERY FORM IS A PERMANENT PART OF THE MEDICAL RECORD BRABARA MCGOVERN Jan 13, 2019 11:14 POSNANDA SHAFER MD Jan 19, 2019 10:50 POS
--- NOTE | 2019-01-13 11:30 | Physician Query Clarification ---
PQ-Conflicting Diagnosis Admission/Discharge Admission Date: Jan 11, 2019 at 13:47 Discharge Date: The medical record reflects the following clinical scenario: History/Risk Factors: Pneumonia Acute/chronic respiratory failure with hypoxia. Hypotension Clinical Findings: BP 01/11 12:53 of 91/56. Treatment: IV Levophed. Question: Do you agree with the impression of the Hypotensive shock secondary to sepsis and pneumonia per Dr. Gutiérrez's 01/11 consult? Please document a response in Progress Note or Discharge Summary. 1. Yes 2. No 3. Other, with explanation of clinical findings 4. Clinically undetermined, no explanation for clinical findings. PHYSICIAN RESPONSE Do you agree w/Consulting Dx?: Other,explanation/clincal findings (Dr Contreras was managing this problem. ) Please remember a lack of response to the above will prompt a phone page by CDI/Coding staff. In responding to this query, please exercise your independent professional judgment. The purpose of this communication is to more accurately reflect the complexity of your patients condition. The fact that a question is asked does not imply that any particular answer is desired or expected. Thank you for your timely response to this clarification. Requestors name: Barbara Baires [facility] Phone # ext [phone] or [phone] THIS PHYSICIAN QUERY FORM IS A PERMANENT PART OF THE MEDICAL RECORD BARBARA BAIRES Jan 13, 2019 11:30 NANDA WINSTON MD Jan 19, 2019 09:30 POS
[2019-01-13 14:05] LABS: ABG BASE EXCESS 2.4 MMOL/L (-2.5-2.5); ABG OXYGEN SATURATION 93 % (94-100); ABG PCO2 42 MMHG (35-45); ABG PH 7.42 (7.37-7.43); ABG PO2 61 MMHG (79-93); ABG TCO2 27.9 MMOL/L (21.0-31.0)
[2019-01-13 14:06] LABS: ALLENS TEST YES-POS; INSPIRED O2 30; PATIENT TEMP 36.5; VENTILATOR YES
--- NOTE | 2019-01-13 15:07 | NUR ---
1415 DR SMITH NOTIFIED OF PT'S ABG RESULTS, NEW ORDERS RECEIVED TO EXTUBATE PT. RT NOTIFIED. 1430 PT EXTUBATED PER RT , RESTRAINTS REMOVED, PT INITIALLY PLACED ON VAPOTHERM AND THEN SWITCHED TO BIPAP PER PT REQUEST. BIPAP PLACED PER RT. 1500 PT WATCHING TELEVISION, RESPIRATIONS EVEN AND UNLABORED, AT BEDSIDE NO NEEDS NOTED AT THIS TIME WILL CONTINUE TO MONITOR.
--- NOTE | 2019-01-13 16:25 | Progress Note ---
Subjective Subjective/Events-last exam Patient intubated and sedated. Off pressors this AM. Breathing over the vent. Review of Systems Intubated and Sedated Focused Exam Lactate Level 01/11/19 11:10: Lactic Acid Level 1.47 Objective Exam Last Set of Vital Signs Vital Signs Date Time Temp Pulse Resp B/P (MAP) Pulse Ox O2 Delivery O2 Flow Rate FiO2 01/13/19 16:17 NIV Bilevel 01/13/19 15:54 36.9 01/13/19 14:58 120 26 98 24.00 01/13/19 13:25 25 01/13/19 10:00 116/59 (78) Capillary Refill : Less Than 3 Seconds I&O Intake and Output 01/13/19 00:00 Intake Total 4335 ml Output Total 2085 ml Balance 2250 ml Intake Oral 0 ml IV Total 4335 ml Output Urine Total 1835 ml Gastric Drainage Total 250 ml General: Other (Intubated and sedated) Lungs: Other (diminished breath sounds, increased agitation with weaning of propfol) Abdomen: Soft Extremities: Other (anasarca LE bilaterally) Results/Procedures Lab Laboratory Tests 01/12/19 17:56: Glucometer 177H 01/12/19 23:04: Glucometer 210H 01/13/19 03:12: White Blood Count 5.5, Red Blood Count 2.81L, Hemoglobin 8.1L, Hematocrit 26L, Mean Corpuscular Volume 94, Mean Corpuscular Hemoglobin 29, Mean Corpuscular Hemoglobin Concent 31L, Red Cell Distribution Width 17.0H, Platelet Count 159, Mean Platelet Volume 9.4, Neutrophils (%) (Auto) 68, Lymphocytes (%) (Auto) 23, Monocytes (%) (Auto) 6, Eosinophils (%) (Auto) 3, Basophils (%) (Auto) 0, Neutrophils # (Auto) 3.7, Lymphocytes # (Auto) 1.3, Monocytes # (Auto) 0.3, Eosinophils # (Auto) 0.2, Basophils # (Auto) 0.0, Blood Gas Puncture Site R RAD, Blood Gas Patient Temperature 36.3, Arterial Blood pH 7.40, Arterial Blood Partial Pressure CO2 44, Arterial Blood Partial Pressure O2 57L, Arterial Blood HCO3 27, Arterial Blood Total CO2 28.8, Arterial Blood Oxygen Saturation 93L, Arterial Blood Base Excess 2.9H, Gurwinder Test ART LINE, Blood Gas Ventilator Setting YES, Blood Gas Inspired Oxygen 30%, Sodium Level 141, Potassium Level 5.0, Chloride Level 107, Carbon Dioxide Level 25, Anion Gap 9, Blood Urea Nitrogen 35H, Creatinine 1.65H, Estimat Glomerular Filtration Rate 42, BUN/Creatinine Ratio 21, Glucose Level 204H, Calcium Level 7.6L, Corrected Calcium 8.9, Phosphorus Level 4.0, Magnesium Level 2.0, Total Bilirubin 0.5, Aspartate Amino Transf (AST/SGOT) 21, Alanine Aminotransferase (ALT/SGPT) 34, Alkaline Phosphatase 39L, B-Type Natriuretic Peptide 195.3H, Total Protein 4.9L, Albumin 2.4L, Triglycerides Level 170H 01/13/19 11:48: Lab Scanned Report Transfusion Reaction Form 01/13/19 11:56: Glucometer 174H 01/13/19 13:58: Blood Gas Puncture Site RT ART LINE, Blood Gas Patient Temperature 36.5, Arterial Blood pH 7.42, Arterial Blood Partial Pressure CO2 42, Arterial Blood Partial Pressure O2 61L, Arterial Blood HCO3 27, Arterial Blood Total CO2 27.9, Arterial Blood Oxygen Saturation 93L, Arterial Blood Base Excess 2.4, Gurwinder Test YES-POS, Blood Gas Ventilator Setting YES, Blood Gas Inspired Oxygen 30 Microbiology 01/11/19 Blood Culture - Preliminary, Resulted No growth 01/11/19 MRSA Screen - Final, Complete MRSA not isolated 01/11/19 Urine Culture - Final, Complete NO GROWTH Assessment/Plan Assessment/Plan (1) Acute on chronic respiratory failure with hypoxia Status: Acute Assessment & Plan: - Patient intubated and sedated, Dr Contreras consult and managing (2) Pulmonary HTN Status: Chronic Assessment & Plan: - Echo showed normal EF with elevated arterial pressures, Dr Gutiérrez consulted and managing 01/12: gentle diuresis but blood pressures have been low 01/13: Tolerating diuresis, good UOP (3) Pulmonary edema Status: Acute Assessment & Plan: - Elevated BNP, daily CXRs with diuresis (4) Lower extremity cellulitis Status: Chronic Assessment & Plan: - Bilateral, continue antibiotics (5) CAD (coronary artery disease) Status: Chronic Qualifiers: Qualified Codes: I25.10 - Atherosclerotic heart disease of [place] coronary artery without angina pectoris (6) Obesity hypoventilation syndrome Status: Chronic Assessment & Plan: - Bipap at home (7) Normocytic anemia Status: Chronic Assessment & Plan: - Stable, no signs of acute bleeding (8) Diabetes mellitus with hyperglycemia Status: Chronic Assessment & Plan: - SSI Qualifiers: Qualified Codes: E11.65 - Type 2 diabetes mellitus with hyperglycemia; Z79.4 - penitentiary (current) use of insulin (9) Atrial fibrillation with rapid ventricular response Status: Acute (10) Bilateral pneumonia Status: Acute Qualifiers: Qualified Codes: J18.9 - Pneumonia, unspecified organism (11) DVT prophylaxis Status: Acute Assessment & Plan: - Lovenox Clinical Quality Measures DVT/VTE Risk/Contraindication: Risk Factor Score Per Nursin RFS Level Per Nursing on Admit: 4+=Very High Contraindications-Mechi: Other *list below* Other: Per no lovenox due to patient being on NANDA Costello MD Jan 13, 2019 16:25 POS
[2019-01-14] VITALS (32 sets, daily range): BP systolic 99–193; BP diastolic 58–98
--- NOTE | 2019-01-14 00:43 | NUR ---
E-ICU contacted r/t hypertension, tachycardia, and anxiety/difficulty sleeping/air hunger. Orders received, see eMAR.
[2019-01-14] MEDS ORDERED: FUROSEMIDE 40 MG/4 ML INJ (LASIX) ONE (01:09)
[2019-01-14] MEDS ORDERED: meTOprolol 5 MG/5 ML (LOPRESSOR) VIAL ONE (01:09)
[2019-01-14] MEDS ORDERED: morphine INJ 4 MG/ML 1 ML (VIAL/SYRINGE) ONE (01:09)
[2019-01-14] MEDS ORDERED: morphine INJ 10 MG/ML 1ML (SYR OR VIAL) IVP STA (01:14)
[2019-01-14] MEDS ORDERED: meTOprolol 5 MG/5 ML (LOPRESSOR) VIAL IV ONE (01:15)
[2019-01-14] MEDS ORDERED: FUROSEMIDE 40 MG/4 ML INJ (LASIX) IVP ONE (01:15)
[2019-01-14] MEDS: RT-ALBUTEROL/IPRATROPIUM 3 ML (DUONEB) VIAL INH SCH ×6 (02:30→22:43)
[2019-01-14] MEDS: PIPERACILLIN/TAZO 4.5 GM/NS 100 ML IV SCH ×6 (03:32→20:11)
[2019-01-14 03:48] LABS: ABG BASE EXCESS 3.4 MMOL/L (-2.5-2.5); ABG OXYGEN SATURATION 93 % (94-100); ABG PCO2 55 MMHG (35-45); ABG PO2 71 MMHG (79-93); ABG TCO2 30.4 MMOL/L (21.0-31.0)
[2019-01-14 03:49] LABS: BASOPHILS % (AUTO) 0 % (0-10); EOSINOPHILS # (AUTO) 0.2 10^3/uL (0.0-0.3); EOSINOPHILS % (AUTO) 3 % (0-10); HEMATOCRIT 28 % (40-54); HEMOGLOBIN 8.9 G/DL (13.3-17.7); LYMPHOCYTES % (AUTO) 17 % (12-44); MEAN CORPUSCULAR HGB CONC 31 G/DL (32-36); MEAN CORPUSCULAR VOLUME 94 FL (80-99); MEAN PLATELET VOLUME 9.6 FL (7.4-10.4); MONOCYTES # (AUTO) 0.4 X 10^3 (0.0-1.0); MONOCYTES % (AUTO) 7 % (0-12); NEUTROPHILS # (AUTO) 4.3 X 10^3 (1.8-7.8); NEUTROPHILS % (AUTO) 73 % (42-75); PLATELET COUNT 192 10^3/uL (130-400); WHITE BLOOD COUNT 5.9 10^3/uL (4.3-11.0)
[2019-01-14 03:50] LABS: MEAN CORPUSCULAR HEMOGLOBIN 29 PG (25-34)
[2019-01-14 03:51] LABS: ABG PH 7.34 (7.37-7.43); ALLENS TEST ART LINE
[2019-01-14 03:52] LABS: INSPIRED O2 35%; VENTILATOR NO
[2019-01-14 04:14] LABS: ALBUMIN 2.8 GM/DL (3.2-4.5); BILIRUBIN,TOTAL 0.6 MG/DL (0.1-1.0); CALCIUM 8.3 MG/DL (8.5-10.1); CREATININE SERUM 1.63 MG/DL (0.60-1.30); MAGNESIUM 1.9 MG/DL (1.6-2.4); PHOSPHORUS 4.4 MG/DL (2.3-4.7); POTASSIUM 4.5 MMOL/L (3.6-5.0); TOTAL PROTEIN 5.9 GM/DL (6.4-8.2)
[2019-01-14] MEDS ORDERED: BUMETANIDE 1 MG/4 ML (BUMEX) VIAL IV ONE (04:45)
--- NOTE | 2019-01-14 04:52 | Pulmonary Progress Note ---
Subjective Time Seen by a Provider: 05:00 Subjective/Events-last exam Pt is currently on Vapotherm. He is still very edematous Sepsis Event Evaluation Height, Weight, BMI Height: 5'11" Weight: 260lbs. 0.0oz. 117.083108uc; 54.10 BMI Method:Stated Focused Exam Lactate Level 01/11/19 11:10: Lactic Acid Level 1.47 Exam Exam Vital Signs Date Time Temp Pulse Resp B/P (MAP) Pulse Ox O2 Delivery O2 Flow Rate FiO2 01/14/19 03:32 37.0 01/14/19 03:00 105 22 171/68 (102) 94 Vapotherm 30.00 35.00 01/14/19 02:32 108 25 144/77 (99) 98 Vapotherm 30.00 35.00 01/14/19 02:30 99 Vapotherm 30.00 35 01/14/19 02:00 111 22 151/74 (99) 99 Vapotherm 30.00 40.00 01/14/19 01:00 128 12 183/73 (109) 94 Vapotherm 30.00 40.00 01/14/19 01:00 128 01/14/19 00:00 Vapotherm 30.00 40 01/14/19 00:00 128 30 173/70 (104) 97 Vapotherm 30.00 40.00 01/13/19 23:02 123 30 104/98 (100) 98 Vapotherm 30.00 40.00 01/13/19 22:00 124 28 133/59 (83) 93 Vapotherm 30.00 40.00 01/13/19 21:50 107 27 122/55 (77) 95 Vapotherm 30.00 40.00 01/13/19 21:46 99 Vapotherm 30.00 40 01/13/19 21:00 110 10 124/60 (81) 100 Vapotherm 30.00 45.00 01/13/19 20:00 NIV Bilevel 01/13/19 20:00 120 34 138/67 (90) 100 Vapotherm 30.00 45.00 01/13/19 19:50 36.5 01/13/19 19:00 115 17 165/81 (109) 94 Vapotherm 30.00 45.00 01/13/19 19:00 123 01/13/19 18:23 96 Vapotherm 30.00 45 01/13/19 17:00 103 25 152/74 (100) 93 Mechanical Ventilator 30.00 01/13/19 16:17 NIV Bilevel 01/13/19 16:00 123 41 125/62 (83) 92 Mechanical Ventilator 30.00 01/13/19 15:54 36.9 01/13/19 15:00 133 36 178/84 (115) 98 Mechanical Ventilator 30.00 01/13/19 14:58 120 26 98 24.00 01/13/19 14:00 117 25 162/82 (108) 96 Mechanical Ventilator 30.00 01/13/19 13:25 114 22 96 25 01/13/19 13:00 121 26 139/68 (91) 100 Mechanical Ventilator 30.00 01/13/19 12:49 107 01/13/19 12:05 Mechanical Ventilator 30 01/13/19 12:00 100 23 141/69 (93) 100 Mechanical Ventilator 30.00 01/13/19 11:00 88 21 112/60 (77) 96 Mechanical Ventilator 30.00 01/13/19 10:44 85 21 100 30 01/13/19 10:00 87 18 116/59 (78) 98 Mechanical Ventilator 30.00 01/13/19 09:00 81 21 116/49 (71) 98 Mechanical Ventilator 30.00 01/13/19 08:34 36.75216 89 21 113/49 97 Mechanical Ventilator 30.00 01/13/19 08:14 36.5 01/13/19 08:10 Mechanical Ventilator 30 01/13/19 08:00 85 22 119/52 (74) 98 Mechanical Ventilator 30.00 01/13/19 07:00 86 22 109/47 (67) 97 Mechanical Ventilator 30.00 01/13/19 06:47 99 01/13/19 06:28 89 21 97 30 01/13/19 06:00 85 20 113/49 (70) 97 Mechanical Ventilator 30.00 01/13/19 05:07 Mechanical Ventilator 01/13/19 05:00 95 19 104/47 (66) 96 Mechanical Ventilator 30.00 I & O 01/14/19 07:00 Intake Total 1500 ml Output Total 3025 ml Balance -1525 ml Height & Weight Height: 5'11" Weight: 260lbs. 0.0oz. 117.316116wl; 54.10 BMI Method:Stated General Appearance: Moderate Distress, Obese HEENT: PERRL/EOMI, Pharynx Normal Neck: Full Range of Motion, Normal Inspection, Non Tender, Supple Respiratory: Crackles (bilateral up to mid lung), Respiratory Distress Cardiovascular: No Murmur, Irregularly Irregular, Tachycardia Capillary Refill: Less Than 3 Seconds Gastrointestinal: normal bowel sounds, soft, no organomegaly Extremity: Pedal Edema (4+ to above the knees bilateral), Pelvis Stable Neurologic/Psychiatric: Disoriented Skin: Normal Color, Warm/Dry Lymphatic: No Adenopathy Results Lab Laboratory Tests 01/12/19 14:33 01/13/19 03:12 01/14/19 03:37 Assessment/Plan Assessment/Plan Acute respiratory failure -repeat 2mg of Bumex x 1 -Place pt back on BiPAP Pulmonary edema with bilateral pleural effusions -echocardiogram shows normal EF Pneumonia - present on admission -Continue Zosyn for now -Rojas cultures pending Acute renal failure -Monitor Debility -Consult PT/OT Morbid obesity with OHS and LUIGI Multiple hospitalizations Anemia -Monitor DEJA SMITH DO Jan 14, 2019 04:52 POS
[2019-01-14] MEDS: MAGNESIUM 1 GM/100 ML IVPB 100 ML IV SCH (05:09)
[2019-01-14] MEDS: inSUlin ASPART (NovoLOG) 1 UNIT/0.01 ML (CHARGE PER UNIT) SQ SCH ×3 (06:03→18:40)
--- NOTE | 2019-01-14 06:56 | Diagnostic Imaging Report ---
INDICATION: Dyspnea. COMPARISON: 01/13/2019. FINDINGS: Cardiomegaly unchanged. Body habitus limits sensitivity. Pleural fluid on the right is increased. The ET tube is no longer identified. IMPRESSION: Increased pleural fluid on the right, cardiomegaly and 5 lobe pulmonary opacities right greater than left showed mixed interval change. Dictated by: Dictated on workstation # [id number]
--- NOTE | 2019-01-14 08:06 | Cardiology Progress Note ---
Subjective Date Seen by Provider: Jan 14, 2019 Time Seen by Provider: 08:04 Subjective/Events-last exam Patient is laying down in bed, having shortness of breath, extubated yesterday Review of Systems General: No Chills, No Night Sweats; Fatigue; No Malaise, No Appetite, No Other HEENT: No Head Aches, No Visual Changes, No Eye Pain, No Ear Pain, No Dysphasia, No Sinus Congestion, No Post Nasal Drip, No Sore Throat, No Other Pulmonary: Dyspnea, Cough; No Pleuritic Chest Pain, No Other Cardiovascular: No: Chest Pain, Palpitations, Orthopnea, Paroxysmal Noc. Dyspnea, Edema, Lt Headedness, Other Focused Exam Lactate Level 01/11/19 11:10: Lactic Acid Level 1.47 Objective-Cardiology Exam Last Set of Vital Signs Vital Signs 01/14/19 01/14/19 03:32 06:40 Temp 37.0 Pulse 142 Resp 28 B/P (MAP) 168/68 (101) Pulse Ox 95 O2 Delivery NIV Bilevel O2 Flow Rate 30.00 Capillary Refill : Less Than 3 Seconds I&O Intake and Output 01/14/19 00:00 Intake Total 3457.5 ml Output Total 3125 ml Balance 332.5 ml Intake Oral 100 ml IV Total 3357.5 ml Output Urine Total 3125 ml General: Alert, Oriented X3, Cooperative, Mild Distress HEENT: Atraumatic, PERRLA Neck: Supple, No JVD Lungs: Other (Bilateral rhonchi) Heart: Normal S1, Normal S2, Other (Tachycardia) Abdomen: Soft Extremities: Other (Peripheral edema) Skin: No Rashes, No Significant Lesion Neuro: Normal Speech Psych/Mental Status: Mental Status NL Results Lab Laboratory Tests 01/14/19 03:37 A/P-Cardiology Admission Diagnosis Acute respiratory failure Pulmonary edema Pneumonia Congestive heart failure, acute on chronic left ventricular diastolic dysfunction Assessment/Plan Status post respiratory failure, extubated, still on BiPAP, possible CT of the chest today, managed by Dr. Contreras Congestive heart failure, echocardiogram showed normal left ventricular size and function with ejection fraction 60 percent, left atrial dilatation with severe pulmonary hypertension with PA pressure 50-60 mmHg. BNP is elevated, probably acute on chronic left ventricular diastolic dysfunction. Receiving diuretics. Continue to monitor Acute exacerbation of COPD with pneumonia, receiving antibiotics. Managed by primary care team Paroxysmal atrial fibrillation, tachycardic at this time, I will restart Cardizem drip Status post hypotensive shock, currently blood pressure is more stable. Continue to monitor while on Cardizem drip Extensive peripheral edema, chronic edema. Cor pulmonale with severe pulmonary hypertension and venous stasis changes, receiving diuretics. Continue to monitor Acute on chronic renal insufficiency, monitor renal function Cellulitis, treated on the previous admission earlier this month. Currently receiving antibiotics. COPD, acute exacerbation, improving, maintained on prednisone at this time and managed by primary care team Morbid obesity, obesity hypoventilation syndrome and acute respiratory failure. Managed by Dr. Contreras Coronary artery disease, history of cardiac catheterization done in 2014 showing coronary ectasia with slow flow, no significant obstructive disease. Conservative management Hyperlipidemia, monitor lipids Diabetes mellitus, followed and managed by primary care physician Clinical Quality Measures DVT/VTE Risk/Contraindication: Risk Factor Score Per Nursin RFS Level Per Nursing on Admit: 4+=Very High Contraindications-Mechi: Other *list below* Other: Per no lovenox due to patient being on eliquis AMI SANTACRUZ MD Jan 14, 2019 08:06 POS
[2019-01-14] MEDS ORDERED: DILTIAZEM 25 MG/5 ML INJ (CARDIZEM) VIAL IVP NR (08:15)
[2019-01-14] MEDS: DILTIAZEM IV FOR DRIP 125 MG in NS (IVPB) 100 ML IV SCH ×2 (08:37→20:12)
[2019-01-14] MEDS ORDERED: hydrALAZINE (APESOLINE) 20 MG/ML VIAL IV PRN (08:45)
--- NOTE | 2019-01-14 10:02 | Physical Therapy Evaluation ---
PT Evaluation-General Medical Diagnosis Admission Date Jan 11, 2019 at 13:47 Medical Diagnosis: acute CHF and respiratory failure Onset Date: Jan 11, 2019 Therapy Diagnosis Therapy Diagnosis: generalized weakness/debility Height/Weight Height (Feet): 5 Height (Inches): 11 Weight (Pounds): 260 Weight (Ounces): 0.0 Precautions Precautions/Isolations: Fall Prevention, Standard Precautions Referral Physician: Diane Reason for Referral: Evaluation/Treatment Medical History Pertinent Medical History: Atrial Fib, CAD, COPD, DM, HTN, Neuropathy Current History EMS from home secondary to SOA Social History Home: Single Level Current Living Status: Spouse Entry Into Home: Stairs With Railing PT Steps Into Home: 3 Prior Prior Level of Function SCALE: Activities may be completed with or without assistive devices. 8-Kesujagfcl-arrymhz completes the activity by him/herself with no assistance from a helper. 5-Set-up or Clean-up Assistance-helper sets up or cleans up; patient completes activity. Maple assists only prior to or following the activity. 4-Supervision or Touching Assistance-helper provides verbal cues and/or touching/steadying and/or contact guard assistance as patient completes activity. Assistance may be provided throughout the activity or intermittently. 3-Partial/Moderate Assistance-helper does LESS THAN HALF the effort. Maple lifts, holds or supports trunk or limbs, but provides less than half the effort. 2-Substantial/Maximal Assistance-helper does MORE THAN HALF the effort. Maple lifts or holds trunk or limbs and provides more than half the effort. 9-Gsepolgoa-kaiubx does ALL the effort. Patient does none of the effort to complete the activity. Or, the assistance of 2 or more helpers is required for the patient to complete the activity. If activity was not attempted, code reason: 7-Patient Refused. 9-Not Applicable-not attempted and the patient did not perform the activity before the current illness, exacerbation or injury. 10-Not Attempted due to Environmental Limitations-(lack of equipment, weather restraints, etc.). 88-Not Attempted due to Medical Conditions or Safety Concerns. Bed Mobility: 5 Transfers (B,C,W/C): 5 Gait: 5 Stairs: 5 Indoor Mobility (Ambulation): Independent Stairs: Independent PT Evaluation-Current Subjective Patient agrees to PT at this time. Patient reports he is not in any pain, just feeling SOA and discomfort with vapotherm. Objective Patient Orientation: Normal For Age Attachments: Oxygen (BiPap), [place] Catheter, IV ROM/Strength ROM Lower Extremities limited due to swelling/edema Strength Lower Extremities grossly 3/5 Integumentary/Posture Integumentary see nursing notes Bowel Incontinence: Yes Bladder Incontinence: Yes Posture unable to assess Sensory Vision: Functional Hearing: Functional Transfers Patient limited to bed d/t vapotherm and edema, could not assess transfers Treatment Supine EX: ankle pumps, SLR, heel slides, abd/add x10 Assessment/Needs Patient restricted to bed level exercises due to BiPap and weeping edema of BLE. Able to perform supine exercises with assistance. Patient demonstrated restricted ROM, even with PT assistance, due to swelling but fair strength. Patient LE repositioned with pillows at conclusion of treatment with heels suspended. Rehab Potential: Fair PT Regulatory Process Manager Goals Half-Way Goals PT Half-Way Goals Time Frame: Jan 24, 2019 Sit to Lying (QC): 5 Lying-Sitting on Side/Bed(QC): 5 Sit to Stand (QC): 5 Roll Left to Right (QC): 5 Chair/Mlp-xm-Xfyem Xfer(QC): 5 Car Transfer (QC): 5 Distance: 200' Walk 10 feet (QC): 5 Walk 10ft-Uneven Surface(QC): 5 Walk 50ft with 2 Turns (QC): 5 Walk 150 ft (QC): 5 PT Plan Problem List Problem List: Activity Tolerance, Functional Strength, Safety, Balance, Gait, Transfer, Bed Mobility Treatment/Plan Treatment Plan: Continue Plan of Care Treatment Plan: Bed Mobility, Education, Functional Activity Johanna, Functional Strength, Gait, Safety, Therapeutic Exercise, Transfers Treatment Duration: Jan 24, 2019 Frequency: 6 times per week Estimated Hrs Per Day: .25 hour per day Patient and/or Family Agrees t: Yes Time/GCodes Time In: 819 Time Out: 831 Total Billed Treatment Time: 12 Total Billed Treatment 1 visit EVLowC 12min DANIELLE CONTRERAS PT Jan 14, 2019 10:02 POS
[2019-01-14] MEDS: meTOprolol TARTRATE 50 MG (LOPRESSOR) TAB PO SCH ×2 (10:25→20:11)
[2019-01-14] MEDS: PANTOPRAZOLE 40 MG (PROTONIX) VIAL IV SCH ×2 (10:25→20:11)
--- NOTE | 2019-01-14 11:08 | Progress Note - Hospitalist ---
ROSANA RAYA,MED STUDENT 01/14/19 1108: Subjective HPI/CC On Admission Date Seen by Provider: Jan 14, 2019 Time Seen by Provider: 08:45 * Pt awake and on BiPAP, unaccompanied by family * Complains of no pain or shortness of air today, only that his throat is dry * Conferred with nurse about transferring pt to [place] facility Focused Exam Lactate Level Objective Exam Vital Signs Vital Signs Date Time Temp Pulse Resp B/P (MAP) Pulse Ox O2 Delivery O2 Flow Rate FiO2 01/14/19 10:11 137 25 95 30.00 01/14/19 10:00 139/64 (89) NIV Bilevel 01/14/19 08:00 37.6 01/14/19 08:00 30 Capillary Refill : Less Than 3 Seconds General Appearance: Chronically ill, Mild Distress, Obese HEENT: Pale Conjunctivae (L), Pale Conjunctivae (R); No Photophobia Respiratory: Chest Non Tender, No Accessory Muscle Use, No Respiratory Distress, Decreased Breath Sounds (distant); No Pleural Rub, No Rales, No Rhonci, No Wheezing Cardiovascular: No Murmur, Tachycardia Extremity: No Calf Tenderness; Pedal Edema (+4 pitting), Swelling (+4 pitting pretibial edema), Other Neurologic/Psychiatric: Alert, Oriented x3 Skin: Cool, Pallor Results/Procedures Lab Laboratory Tests 01/14/19 03:37 Patient resulted labs reviewed. Assessment/Plan Assessment and Plan Assess & Plan/Chief Complaint Assessment Acute on chronic respiratory failure Pneumonia Pulmonary Hypertension Pulmonary edema LE cellulitis Coronary artery disease obesity hypoventilation syndrome Normocytic anemia Type 2 Diabetes Afib DVT prophylaxis Plan Continue pain management, IVF, BiPAP and antihypertensives. Dr. Contreras following Acute on chronic respiratory failure, PNA, pulmonary HTN and PE. Since pt was extubated, consider transferring to [place] to continue to receive respiratory support. Clinical Quality Measures DVT/VTE Risk/Contraindication: Risk Factor Score Per Nursin RFS Level Per Nursing on Admit: 4+=Very High Contraindications-Mechi: Other *list below* Other: Per no lovenox due to patient being on eliSANDRA Willoughby DO 01/14/19 1229: Subjective Subjective/Events-last exam Patient doing better now extubated On BiPAP currently Anasarca continues Diuresing Pulmonary hypertension noted [place] has accepted pending Dr Contreras decision Review of Systems Pulmonary: Dyspnea Objective Exam General Appearance: Anxious, Chronically ill, Mild Distress, Obese Respiratory: Decreased Breath Sounds (distant), Wheezing Assessment/Plan Assessment and Plan Assess & Plan/Chief Complaint Prognosis guarded [place]? 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 I reviewed and verified all information documented by the medical student and made modifications to such information, when appropriate. I personally performed the physical exam and medical decision making. Sandra Villagomez, Jan 14, 2019,12:27 ROSANA RAYA,MED STUDENT Jan 14, 2019 11:08 SANDRA STERN DO Jan 14, 2019 12:29 POS
--- NOTE | 2019-01-14 12:25 | Diagnostic Imaging Report ---
INDICATION: Pleural effusion. Study is compromised. Right chest was evaluated. There does appear to be some pleural fluid present on the right. IMPRESSION: Right-sided pleural effusion. Dictated by: Dictated on workstation # [id number]
--- NOTE | 2019-01-14 13:07 | Occupational Therapy Eval ---
OT Evaluation-General/PLF Medical Diagnosis Admission Date Jan 11, 2019 at 13:47 Medical Diagnosis: acute CHF and respiratory failure Onset Date: Jan 11, 2019 Therapy Diagnosis Therapy Diagnosis: decreased functional mobilty and ADL abilities Height/Weight Height (Feet): 5 Height (Inches): 11 Weight (Pounds): 260 Weight (Ounces): 0.0 Precautions Precautions/Isolations: Fall Prevention, Standard Precautions Safety Interventions: Reorient-PRN Referral Physician: Diane Referral Reason: Activity Tolerance, Self Care, Evaluation/Treatment, Strengthening/ROM Medical History Pertinent Medical History: Atrial Fib, CAD, COPD, DM, HTN, Neuropathy Additional Medical History see above Current History Per H&P: "Per ER Patient had been having increasing shortness of breath for the last week prior to admission. He recently had an admission for cellulitis and shortness of breath." Reviewed History: Yes Social History Home: Single Level Current Living Status: Spouse Entry Into Home: Stairs With Railing Steps Into Home: 3 Steps Inside Home: 0 Pt's works outside the home 5 days a week. Pt states she works hourly shift but is currently working at 1130pm. Pt's has one child who is local, 3 of his own children around the [facility]. ADL-Prior Level of Function SCALE: Activities may be completed with or without assistive devices. 2-Wefyfkrxcc-mvcygry completes the activity by him/herself with no assistance from a helper. 5-Set-up or Clean-up Assistance-helper sets up or cleans up; patient completes activity. [place] assists only prior to or following the activity. 4-Supervision or Touching Assistance-helper provides verbal cues and/or touching/steadying and/or contact guard assistance as patient completes activity. Assistance may be provided throughout the activity or intermittently. 3-Partial/Moderate Assistance-helper does LESS THAN HALF the effort. [place] lifts, holds or supports trunk or limbs, but provides less than half the effort. 2-Substantial/Maximal Assistance-helper does MORE THAN HALF the effort. [place] lifts or holds trunk or limbs and provides more than half the effort. 6-Yywbsahhp-ssswlm does ALL the effort. Patient does none of the effort to complete the activity. Or, the assistance of 2 or more helpers is required for the patient to complete the activity. If activity was not attempted, code reason: 7-Patient Refused. 9-Not Applicable-not attempted and the patient did not perform the activity before the current illness, exacerbation or injury. 10-Not Attempted due to Environmental Limitations-(lack of equipment, weather restraints, etc.). 88-Not Attempted due to Medical Conditions or Safety Concerns. Self Care: Needed Some Help Functional Cognition: Needed Some Help DME/Equipment Comments has walk in shower with built in shower chair, grab bars Occupation: disabled Drive Self: No Leisure Interests: playing with dogs OT Current Status Subjective Pt's nurse notified of eval/ treat, nursing states okay in-bed activity. Pt seen reclined in bed, states no pain but "weakness and very SOB." Pt agreeable to OT eval/ treat. Mental Status/Objective Attachments: Telemetry, Other-See Comments (BiPAP) Current Glasses/Contacts: Yes Hearing Aids: No Dentures/Partials: No Hand Dominance: Right Upper Extremity ROM Impaired: BUE (weakness) Upper Extremity Coordination Impaired Upper Extremity Sensation Impaired BLE Upper Extremity Strength Impaired 2+/5 BUE Edema: Pitting edema BLE ADL-Treatment Eating (QC): 3 (OT must remove BiPAP, hold on to cup and placein mouth, pt able to suck through straw for nutrition) Shower/Bathe Self (QC): 1 (requires assist to hold on to towel. Pt unable to reach face with hand; pt's eyes wiped with TD.) Other Treatments Pt demonstrates weakness, was intubated previous date. Upon asking about , pt becomes tearful. Pt states thirst, requires max A. Pt completes AROM/ PROM bilaterally. States cold, blanket placed on UE, requires max A for placement and positioning for comfort. Pt educated on post-intubation weakness, OT ICU role, and plan of treatment. Pt left with call light in reach, all needs met. Education OT Patient Education: Correct positioning, Exercise program, Modified ADL techniques, Purpose of tx/functional activities, Rehab process Teaching Recipient: Patient Teaching Methods: Demonstration, Discussion Response to Teaching: Verbalize Understanding, Return Demonstration OT Short Term Goals Short Term Goals Eating(FIM): 3 Upper Body Dressing(FIM): 2 Lower Body Dressing(FIM): 2 1=Demonstrate adherence to instructed precautions during ADL tasks. 2=Patient will verbalize/demonstrate understanding of assistive devices/modifications for ADL. 3=Patient will improve strength/tolerance for activity to enable patient to perform ADL's. OT Detention Goals Pharmacy Director Goals Time Frame: Jan 21, 2019 Eating (QC): 4 Oral Hygiene (QC): 4 Shower/Bathe Self (QC): 2 Upper Body Dressing (QC): 3 Lower Body Dressing (QC): 3 On/Off Footwear (QC): 3 Toileting Hygiene (QC): 3 Toilet/Commode Transfer (QC): 3 Additional Goals: 1-Demonstrate ADL Tasks, 2-Verbalize Understanding, 3- ImproveStrength/Johanna 1=Demonstrate adherence to instructed precautions during ADL tasks. 2=Patient will verbalize/demonstrate understanding of assistive devices/modifications for ADL. 3=Patient will improve strength/tolerance for activity to enable patient to perform ADL's. OT Education/Plan Problem List/Assessment Assessment: Decreased Activ Tolerance, Decreased UE Strength, Dependent Trans fers, Edema, Impaired Bed Mobility, Impaired Funct Balance, Impaired I ADL's, Impaired Self-Care Skills Discharge Recommendations Plan/Recommendations: Continue POC Patient/Family Goals Gain strength and decrease SOB. Treatment Plan/Plan of Care Treatment,Training & Education: Yes Patient would benefit from OT for education, treatment and training to promote independence in ADL's, mobility, safety and/or upper extremity function for ADL's. Plan of Care: ADL Retraining, Caregiver Training, Concurrent Therapy, Functional Mobility, Group Exercise/Act as Ind, UE Funct Exercise/Act Treatment Duration: Jan 21, 2019 Frequency: 5 times per week Estimated Hrs Per Day: .25 hour per day Agreement: Yes Rehab Potential: Fair Time/GCodes Start Time: 09:30 Stop Time: 09:48 Total Time Billed (hr/min): 18 Billed Treatment Time KYLAH Alejandro (18) CHRIS DELGADILLO OTR Jan 14, 2019 13:07 POS
[2019-01-15] VITALS (31 sets, daily range): BP systolic 124–196; BP diastolic 61–98
[2019-01-15] MEDS: inSUlin ASPART (NovoLOG) 1 UNIT/0.01 ML (CHARGE PER UNIT) SQ SCH ×4 (00:34→16:43)
[2019-01-15] MEDS: RT-ALBUTEROL/IPRATROPIUM 3 ML (DUONEB) VIAL INH SCH ×6 (03:15→22:56)
[2019-01-15 03:21] LABS: ABG BASE EXCESS 2.3 MMOL/L (-2.5-2.5); ABG OXYGEN SATURATION 98 % (94-100); ABG PCO2 48 MMHG (35-45); ABG PH 7.37 (7.37-7.43); ABG PO2 85 MMHG (79-93); ABG TCO2 28.8 MMOL/L (21.0-31.0); BASOPHILS % (AUTO) 0 % (0-10); EOSINOPHILS # (AUTO) 0.1 10^3/uL (0.0-0.3); EOSINOPHILS % (AUTO) 3 % (0-10); HEMATOCRIT 26 % (40-54); HEMOGLOBIN 8.2 G/DL (13.3-17.7); LYMPHOCYTES # (AUTO) 1.2 X 10^3 (1.0-4.0); LYMPHOCYTES % (AUTO) 23 % (12-44); MEAN CORPUSCULAR HEMOGLOBIN 30 PG (25-34); MEAN CORPUSCULAR HGB CONC 31 G/DL (32-36); MEAN CORPUSCULAR VOLUME 95 FL (80-99); MONOCYTES # (AUTO) 0.3 X 10^3 (0.0-1.0); MONOCYTES % (AUTO) 7 % (0-12); NEUTROPHILS # (AUTO) 3.5 X 10^3 (1.8-7.8); NEUTROPHILS % (AUTO) 67 % (42-75); PLATELET COUNT 183 10^3/uL (130-400); RED CELL DISTRIBUTION WIDTH 16.5 % (10.0-14.5); WHITE BLOOD COUNT 5.2 10^3/uL (4.3-11.0)
[2019-01-15 03:25] LABS: ALLENS TEST ART LINE; INSPIRED O2 30%; PATIENT TEMP 36.3; VENTILATOR YES
[2019-01-15] MEDS: PIPERACILLIN/TAZO 4.5 GM/NS 100 ML IV SCH ×6 (03:28→20:39)
[2019-01-15 03:39] LABS: ALBUMIN 2.7 GM/DL (3.2-4.5); BILIRUBIN,TOTAL 0.4 MG/DL (0.1-1.0); CALCIUM 8.1 MG/DL (8.5-10.1); CREATININE SERUM 1.67 MG/DL (0.60-1.30); MAGNESIUM 2.1 MG/DL (1.6-2.4); PHOSPHORUS 3.7 MG/DL (2.3-4.7); POTASSIUM 4.1 MMOL/L (3.6-5.0); TOTAL PROTEIN 5.7 GM/DL (6.4-8.2)
[2019-01-15] MEDS ORDERED: ENOXAPARIN 100 MG/1 ML (LOVENOX) SYR SC SCH (04:45)
[2019-01-15] MEDS ORDERED: ALBUMIN 25% 25 GM/100 ML 100 ML IV ONE (04:45)
--- NOTE | 2019-01-15 04:45 | Pulmonary Progress Note ---
Subjective Time Seen by a Provider: 06:27 Subjective/Events-last exam Currently on BiPAP. still very edematous. Sepsis Event Evaluation Height, Weight, BMI Height: 5'11" Weight: 260lbs. 0.0oz. 117.791805bm; 54.10 BMI Method:Stated Exam Exam Vital Signs Date Time Temp Pulse Resp B/P (MAP) Pulse Ox O2 Delivery O2 Flow Rate FiO2 01/15/19 04:00 37.1 01/15/19 04:00 104 28 157/61 (93) 98 NIV Bilevel 30.00 01/15/19 03:15 93 37 96 30.00 01/15/19 03:00 87 17 145/65 (91) 94 NIV Bilevel 30.00 01/15/19 02:00 86 21 158/63 (94) 93 NIV Bilevel 30.00 01/15/19 01:00 88 01/15/19 01:00 88 24 155/61 (92) 98 NIV Bilevel 30.00 01/15/19 00:00 NIV Bilevel 30 01/15/19 00:00 89 20 155/62 (93) 100 NIV Bilevel 30.00 01/15/19 00:00 36.6 01/14/19 23:00 88 23 140/70 (93) 99 NIV Bilevel 30.00 01/14/19 22:43 79 32 99 30.00 01/14/19 22:00 88 130/62 (84) 100 NIV Bilevel 30.00 01/14/19 21:00 89 148/65 (92) 99 NIV Bilevel 30.00 01/14/19 20:12 117 140/62 01/14/19 20:00 116 22 144/62 (89) 96 NIV Bilevel 30.00 01/14/19 20:00 36.8 01/14/19 20:00 NIV Bilevel 30 01/14/19 19:00 109 20 133/63 (86) 95 NIV Bilevel 30.00 01/14/19 19:00 110 01/14/19 18:37 120 36 94 30.00 01/14/19 18:00 109 24 133/63 (86) 94 NIV Bilevel 30.00 01/14/19 17:00 111 32 132/58 (82) 93 NIV Bilevel 30.00 01/14/19 16:00 37.6 01/14/19 16:00 NIV Bilevel 30 01/14/19 16:00 120 25 123/58 (79) 94 NIV Bilevel 30.00 01/14/19 15:00 116 34 99/60 (73) 94 NIV Bilevel 30.00 01/14/19 14:40 113 31 94 30.00 01/14/19 14:00 112 24 123/62 (82) 94 NIV Bilevel 30.00 01/14/19 13:00 106 23 123/61 (81) 95 NIV Bilevel 30.00 01/14/19 13:00 106 01/14/19 12:00 37.4 01/14/19 12:00 NIV Bilevel 30 01/14/19 12:00 98 27 136/67 (90) 95 NIV Bilevel 30.00 01/14/19 11:22 37.6 96 96 30 01/14/19 11:00 129 22 142/63 (89) 96 NIV Bilevel 30.00 01/14/19 10:11 137 25 95 30.00 01/14/19 10:00 134 23 139/64 (89) 94 NIV Bilevel 30.00 01/14/19 09:00 126 21 130/64 (86) 95 NIV Bilevel 30.00 01/14/19 08:37 154 141/67 01/14/19 08:00 37.6 01/14/19 08:00 134 20 158/69 (98) 95 NIV Bilevel 30.00 01/14/19 08:00 NIV Bilevel 30 01/14/19 07:00 140 22 161/66 (97) 94 NIV Bilevel 30.00 01/14/19 07:00 142 01/14/19 06:40 142 28 168/68 (101) 95 NIV Bilevel 30.00 01/14/19 06:36 140 31 98 30.00 01/14/19 06:10 Vapotherm 30.00 40.00 01/14/19 06:00 131 19 193/71 (111) 90 Vapotherm 30.00 35.00 01/14/19 05:00 130 28 191/73 (112) 92 Vapotherm 30.00 35.00 I & O 01/15/19 07:00 Intake Total 895 ml Output Total 2050 ml Balance -1155 ml Height & Weight Height: 5'11" Weight: 260lbs. 0.0oz. 117.247152tm; 54.10 BMI Method:Stated General Appearance: Anxious, Chronically ill, Mild Distress, Obese HEENT: Pale Conjunctivae (L), Pale Conjunctivae (R); No Photophobia Neck: Full Range of Motion, Normal Inspection, Non Tender, Supple Respiratory: Decreased Breath Sounds (distant), Wheezing Cardiovascular: No Murmur, Tachycardia Capillary Refill: Less Than 3 Seconds Gastrointestinal: normal bowel sounds, soft, no organomegaly Extremity: No Calf Tenderness; Pedal Edema (+4 pitting), Swelling (+4 pitting pretibial edema), Other Neurologic/Psychiatric: Alert, Oriented x3 Skin: Cool, Pallor Lymphatic: No Adenopathy Results Lab Laboratory Tests 01/14/19 03:37 01/15/19 03:10 Assessment/Plan Assessment/Plan Acute respiratory failure -Continue Bumex -Place pt back on BiPAP Pulmonary edema with bilateral pleural effusions secondary to IVF -echocardiogram shows normal EF Pneumonia - present on admission -Continue Zosyn for now -Rojas cultures pending Afib RVR with HTN -Cardizem gtt -Lopressor Acute renal failure -Monitor Debility -Consult PT/OT Morbid obesity with OHS and LUIGI Multiple hospitalizations Anemia -Monitor -restart Lovenox and monitor H&H DEJA SMITH DO Jan 15, 2019 04:45 POS
[2019-01-15] MEDS: DILTIAZEM IV FOR DRIP 125 MG in NS (IVPB) 100 ML IV SCH ×3 (04:55→22:13)
[2019-01-15] MEDS: MAGNESIUM 1 GM/100 ML IVPB 100 ML IV SCH (05:14)
[2019-01-15] MEDS: ENOXAPARIN 100 MG/1 ML (LOVENOX) SYR SC SCH ×2 (05:23→15:51)
--- NOTE | 2019-01-15 08:21 | Diagnostic Imaging Report ---
INDICATION: Shortness of breath. COMPARISON: 01/14/2019. FINDINGS: Single view of the chest demonstrates cardiac enlargement with unchanged central vascular congestion and small effusions. There is no pneumothorax. The right IJ catheter is stable. IMPRESSION: Unchanged aeration of the lungs. Dictated by: Dictated on workstation # [id number]
[2019-01-15] MEDS: meTOprolol TARTRATE 50 MG (LOPRESSOR) TAB PO SCH ×2 (08:55→20:39)
[2019-01-15] MEDS: PANTOPRAZOLE 40 MG (PROTONIX) VIAL IV SCH ×2 (08:55→20:36)
[2019-01-15] MEDS: BUMETANIDE 1 MG/4 ML (BUMEX) VIAL IV SCH ×2 (08:55→20:39)
[2019-01-15] MEDS ORDERED: KCL 20 MEQ TAB (K-DUR) PO ONE (09:00)
--- NOTE | 2019-01-15 11:54 | Physical Therapy Daily Note ---
PT Daily Note-Current Subjective Pt is agreeable to supine LE exercises. Mental Status Patient Orientation: Person, Place, Time, Situation Attachments: Ventilator, [place] Catheter, IV Transfers SCALE: Activities may be completed with or without assistive devices. 1-Owkwedraxg-jcqtbcu completes the activity by him/herself with no assistance from a helper. 5-Set-up or Clean-up Assistance-helper sets up or cleans up; patient completes activity. [place] assists only prior to or following the activity. 4-Supervision or Touching Assistance-helper provides verbal cues and/or touching/steadying and/or contact guard assistance as patient completes activity. Assistance may be provided throughout the activity or intermittently. 3-Partial/Moderate Assistance-helper does LESS THAN HALF the effort. [place] lifts, holds or supports trunk or limbs, but provides less than half the effort. 2-Substantial/Maximal Assistance-helper does MORE THAN HALF the effort. [place] lifts or holds trunk or limbs and provides more than half the effort. 6-Iiiltakvk-ugcenw does ALL the effort. Patient does none of the effort to complete the activity. Or, the assistance of 2 or more helpers is required for the patient to complete the activity. If activity was not attempted, code reason: 7-Patient Refused. 9-Not Applicable-not attempted and the patient did not perform the activity before the current illness, exacerbation or injury. 10-Not Attempted due to Environmental Limitations-(lack of equipment, weather restraints, etc.). 88-Not Attempted due to Medical Conditions or Safety Concerns. Exercises Supine Ex: LE Protocol Supine Reps: 20 max assist for all supine LE exercises (B) Assessment Current Status: Fair Progress Pt was more capable of moving the (R) LE. Pt participated with therapy but requires maximal assist. PT Senior Care Goals Senior Care Goals PT Senior Care Goals Time Frame: Jan 24, 2019 Sit to Lying (QC): 5 Lying-Sitting on Side/Bed(QC): 5 Sit to Stand (QC): 5 Roll Left to Right (QC): 5 Chair/Ujz-tj-Mhteb Xfer(QC): 5 Car Transfer (QC): 5 Distance: 200' Walk 10 feet (QC): 5 Walk 10ft-Uneven Surface(QC): 5 Walk 50ft with 2 Turns (QC): 5 Walk 150 ft (QC): 5 PT Plan Treatment/Plan Treatment Plan: Continue Plan of Care Treatment Plan: Bed Mobility, Education, Functional Activity Johanna, Functional Strength, Gait, Safety, Therapeutic Exercise, Transfers Treatment Duration: Jan 24, 2019 Frequency: 6 times per week Estimated Hrs Per Day: .25 hour per day Patient and/or Family Agrees t: Yes Time/GCodes Time In: 1105 Time Out: 1115 Total Billed Treatment Time: 10 Total Billed Treatment 1, ex 10 MARY CARMEN ORTIZ PT Jan 15, 2019 11:54 POS
--- NOTE | 2019-01-15 12:58 | Progress Note - Cardiology ---
Cardiology SOAP Progress Note Subjective: Notes weakness and malaise and persistent shortness of breath Feels hungry Denies cp or palp or syncope Objective: I&O/Vital Signs 01/15/19 01/15/19 01/15/19 01/15/19 01:00 01:00 02:00 03:00 Pulse 88 88 86 87 Resp 24 21 17 B/P (MAP) 155/61 (92) 158/63 (94) 145/65 (91) Pulse Ox 98 93 94 O2 Delivery NIV Bilevel NIV Bilevel NIV Bilevel O2 Flow Rate 30.00 30.00 30.00 01/15/19 01/15/19 01/15/19 01/15/19 03:15 04:00 04:00 04:00 Temp 37.1 Pulse 93 104 Resp 37 28 B/P (MAP) 157/61 (93) Pulse Ox 96 98 O2 Delivery NIV Bilevel NIV Bilevel O2 Flow Rate 30.00 30.00 FiO2 30 01/15/19 01/15/19 01/15/19 01/15/19 04:55 05:00 06:00 07:00 Pulse 93 94 100 105 Resp 29 26 B/P (MAP) 157/62 160/66 (97) 152/66 (94) Pulse Ox 99 98 O2 Delivery NIV Bilevel NIV Bilevel O2 Flow Rate 30.00 30.00 01/15/19 01/15/19 01/15/19 01/15/19 07:00 07:23 08:00 08:45 Pulse 89 95 88 Resp 33 37 34 B/P (MAP) 156/61 (92) 151/62 (91) Pulse Ox 92 93 92 O2 Delivery NIV Bilevel NIV Bilevel NIV Bilevel O2 Flow Rate 30.00 25.00 30.00 FiO2 30 01/15/19 01/15/19 01/15/19 01/15/19 09:00 10:00 11:00 11:19 Pulse 94 77 86 80 Resp 10 31 33 36 B/P (MAP) 166/63 (97) 159/71 (100) 167/72 (103) Pulse Ox 94 95 94 95 O2 Delivery NIV Bilevel NIV Bilevel NIV Bilevel O2 Flow Rate 30.00 30.00 30.00 25.00 01/15/19 01/15/19 01/15/19 01/15/19 12:00 12:00 12:16 12:34 Temp 36.8 Pulse 92 93 Resp 20 B/P (MAP) 174/73 (106) Pulse Ox 94 O2 Delivery NIV Bilevel NIV Bilevel O2 Flow Rate 30.00 FiO2 30 01/15/19 00:00 Intake Total 795 ml Output Total 700 ml Balance 95 ml Weight (Pounds): 260 Weight (Ounces): 0.0 Weight (Calculated Kilograms): 117.687549 Constitutional: AAO x 3, well-developed, well-nourished, other (on BiPAP) Respiratory: No accessory muscle use; other (fair air entry, diminished at the bases, prolonged exp phase) Cardiovascular: regular rate-rhythm, S1 and S2, systolic murmur (faint PARRIS at card base) Gastrointestional: No tender; soft, distended; No guarding, No rebound; audible bowel sounds Extremities: No clubbing, No cyanosis; significant edema (bilateral, pitting and nonpitting edema) Neurologic/Psychiatric: oriented x 3, other (moves all limbs equally) Skin: other (warm with weeping legs bilateral secondary to significant edema no obvious infection but does have some erythema bilateral.) Results/Procedures: Labs Laboratory Tests 01/14/19 18:03: Glucometer 151H 01/15/19 00:24: Glucometer 152H 01/15/19 03:10: White Blood Count 5.2, Red Blood Count 2.75L, Hemoglobin 8.2L, Hematocrit 26L, Mean Corpuscular Volume 95, Mean Corpuscular Hemoglobin 30, Mean Corpuscular Hemoglobin Concent 31L, Red Cell Distribution Width 16.5H, Platelet Count 183, Mean Platelet Volume 9.0, Neutrophils (%) (Auto) 67, Lymphocytes (%) (Auto) 23, Monocytes (%) (Auto) 7, Eosinophils (%) (Auto) 3, Basophils (%) (Auto) 0, Neutrophils # (Auto) 3.5, Lymphocytes # (Auto) 1.2, Monocytes # (Auto) 0.3, Eosinophils # (Auto) 0.1, Basophils # (Auto) 0.0, Blood Gas Puncture Site RIGHT ART LINE, Blood Gas Patient Temperature 36.3, Arterial Blood pH 7.37, Arterial Blood Partial Pressure CO2 48H, Arterial Blood Partial Pressure O2 85, Arterial Blood HCO3 27, Arterial Blood Total CO2 28.8, Arterial Blood Oxygen Saturation 98, Arterial Blood Base Excess 2.3, Gurwinder Test ART LINE, Blood Gas Ventilator Setting YES, Blood Gas Inspired Oxygen 30%, Sodium Level 144, Potassium Level 4.1, Chloride Level 106, Carbon Dioxide Level 24, Anion Gap 14, Blood Urea Nitrogen 30H, Creatinine 1.67H, Estimat Glomerular Filtration Rate 42, BUN/Creatinine Ratio 18, Glucose Level 162H, Calcium Level 8.1L, Corrected Calcium 9.1, Phosphorus Level 3.7, Magnesium Level 2.1, Total Bilirubin 0.4, Aspartate Amino Transf (AST/SGOT) 17, Alanine Aminotransferase (ALT/SGPT) 27, Alkaline Phosphatase 56, Total Protein 5.7L, Albumin 2.7L 01/15/19 08:27: Glucometer 157H 01/15/19 11:55: Glucometer 160H Microbiology 01/11/19 Blood Culture - Preliminary, Resulted No growth 01/11/19 MRSA Screen - Final, Complete MRSA not isolated 01/11/19 Urine Culture - Final, Complete NO GROWTH Laboratory Tests 01/14/19 03:37 01/15/19 03:10 A/P: Assessment: Type 2 repiratory failure, multifactorial (see below) Ac diastolic CHF PAF w/ RVR, currently controlled Pulmonary issues: obesity-hypoventilation with cor pulmonale, ac exac of COPD due to pneumonia Echo of 01/11/19 (Dr Gutiérrez): LVEF 55-65%, left atrial dilatation, pulmonary hypertension with PA pressure 50-60 mmHg Marked, chronic leg edema with intermittent cellulitis CKD 3 Coronary artery disease, cath of 2014 showed coronary ectasia with slow flow, no significant obstructive disease Hyperlipidemia, by history Diabetes mellitus II Plan: * I interviewed and examined the patient. I reviewed his hospital records. I answered his CV-related questions * Complex management due to multiple comorbidities (see above) * Continue rate-control and stroke prophylaxis for A Fib * Continue diuretics for CHF * Monitor labs RUSH ARITA MD [facility] Jan 15, 2019 12:58 POS
--- NOTE | 2019-01-15 13:26 | Progress Note - Hospitalist ---
Subjective HPI/CC On Admission Date Seen by Provider: Jan 15, 2019 Time Seen by Provider: 11:30 * Pt awake and on BiPAP, unaccompanied by family * Complains of no pain or shortness of air today, only that his throat is dry * Conferred with nurse about transferring pt to [place] facility Subjective/Events-last exam Patient about the same Maintained on BiPAP Anasarca still an issue [place] likely on Thursday Patient denies any significant pain Overall prognosis extremely poor Review of Systems Pulmonary: Dyspnea Cardiovascular: Edema Objective Exam Vital Signs Vital Signs Date Time Temp Pulse Resp B/P (MAP) Pulse Ox O2 Delivery O2 Flow Rate FiO2 01/15/19 13:00 89 28 169/63 (98) 92 NIV Bilevel 30.00 01/15/19 12:34 30 01/15/19 12:00 36.8 Capillary Refill : Less Than 3 Seconds General Appearance: WD/WN, Anxious, Chronically ill, Mild Distress, Obese Respiratory: Crackles, Decreased Breath Sounds Cardiovascular: Regular Rate, Rhythm Extremity: Pedal Edema Neurologic/Psychiatric: Alert, Oriented x3, No Motor/Sensory Deficits, Normal Mood/Affect Results/Procedures Lab Laboratory Tests 01/15/19 03:10 Patient resulted labs reviewed. Assessment/Plan Assessment and Plan Assess & Plan/Chief Complaint Assessment: Acute on chronic respiratory failure Obesity hypoventilation syndrome Chronic hypercapnia Chronic renal failure Anasarca Volume overload Congestive heart failure Hypertension Plan: BiPAP ICU [place] likely on Thursday Prognosis poor Diagnosis/Problems Diagnosis/Problems (1) Acute on chronic respiratory failure with hypoxia Status: Acute (2) Obesity hypoventilation syndrome Status: Chronic (3) Lower extremity cellulitis Status: Chronic (4) Pulmonary HTN Status: Chronic (5) Pulmonary edema Status: Acute (6) CAD (coronary artery disease) Status: Chronic Qualifiers: Coronary Disease-Associated Artery/Lesion type: [place] artery [place] vs. transplanted heart: [place] heart Associated angina: without angina Qualified Codes: I25.10 - Atherosclerotic heart disease of [place] coronary artery without angina pectoris (7) Diabetes mellitus with hyperglycemia Status: Chronic Qualifiers: Diabetes mellitus type: type 2 Diabetes mellitus screen cutter and trimmer insulin use: with longterm use Qualified Codes: E11.65 - Type 2 diabetes mellitus with h yperglycemia; Z79.4 - shelter (current) use of insulin Clinical Quality Measures DVT/VTE Risk/Contraindication: Risk Factor Score Per Nursin RFS Level Per Nursing on Admit: 4+=Very High Contraindications-Mechi: Other *list below* Other: Per no lovenox due to patient being on eliquis YARIEL BUI DO Jan 15, 2019 13:26 POS
[2019-01-16] VITALS (32 sets, daily range): BP systolic 99–201; BP diastolic 54–118
--- NOTE | 2019-01-16 00:30 | NUR ---
PT IS HALLUCINATING AT THIS TIME. HE THINKS HE SEES HIS DOG IN THE CORNER AND THAT THE PERSON ON TV OWES HIM MONEY. PT HAS NOT SLEPT ALL NIGHT AND APPEARS VERY ANXIOUS. E-ICU NOTIFIED. SEE ORDER HISTORY.
[2019-01-16] MEDS: inSUlin ASPART (NovoLOG) 1 UNIT/0.01 ML (CHARGE PER UNIT) SQ SCH ×4 (00:42→17:07)
[2019-01-16] MEDS ORDERED: diphenhydrAMINE 50 MG/ML INJ (BENADRYL) ONE (01:01)
[2019-01-16] MEDS ORDERED: HALOPERIDOL 5 MG/ML (HALDOL) AMP ONE (01:01)
[2019-01-16] MEDS ORDERED: diphenhydrAMINE 50 MG/ML INJ (BENADRYL) IVP ONE (01:15)
[2019-01-16] MEDS ORDERED: HALOPERIDOL 5 MG/ML (HALDOL) AMP IM/IV ONE (01:15)
[2019-01-16 02:20] LABS: BASOPHILS % (AUTO) 0 % (0-10); EOSINOPHILS # (AUTO) 0.2 10^3/uL (0.0-0.3); EOSINOPHILS % (AUTO) 5 % (0-10); HEMATOCRIT 26 % (40-54); HEMOGLOBIN 7.9 G/DL (13.3-17.7); LYMPHOCYTES % (AUTO) 19 % (12-44); MEAN CORPUSCULAR HEMOGLOBIN 29 PG (25-34); MEAN CORPUSCULAR HGB CONC 30 G/DL (32-36); MEAN CORPUSCULAR VOLUME 95 FL (80-99); MEAN PLATELET VOLUME 8.9 FL (7.4-10.4); MONOCYTES # (AUTO) 0.4 X 10^3 (0.0-1.0); MONOCYTES % (AUTO) 8 % (0-12); NEUTROPHILS # (AUTO) 3.5 X 10^3 (1.8-7.8); NEUTROPHILS % (AUTO) 68 % (42-75); PLATELET COUNT 215 10^3/uL (130-400); RED CELL DISTRIBUTION WIDTH 16.4 % (10.0-14.5); WHITE BLOOD COUNT 5.2 10^3/uL (4.3-11.0)
[2019-01-16 02:21] LABS: ABG BASE EXCESS 3.1 MMOL/L (-2.5-2.5); ABG OXYGEN SATURATION 97 % (94-100); ABG PCO2 50 MMHG (35-45); ABG PH 7.37 (7.37-7.43); ABG PO2 82 MMHG (79-93); ABG TCO2 29.4 MMOL/L (21.0-31.0)
[2019-01-16 02:25] LABS: ALLENS TEST ART LINE; INSPIRED O2 30%; PATIENT TEMP 37.3; VENTILATOR YES
[2019-01-16 02:44] LABS: BILIRUBIN,TOTAL 0.4 MG/DL (0.1-1.0); CALCIUM 8.4 MG/DL (8.5-10.1); CREATININE SERUM 1.92 MG/DL (0.60-1.30); MAGNESIUM 2.2 MG/DL (1.6-2.4); PHOSPHORUS 3.5 MG/DL (2.3-4.7); POTASSIUM 4.3 MMOL/L (3.6-5.0)
[2019-01-16] MEDS: MAGNESIUM 1 GM/100 ML IVPB 100 ML IV SCH (03:03)
[2019-01-16] MEDS: PIPERACILLIN/TAZO 4.5 GM/NS 100 ML IV SCH ×4 (03:20→08:03)
[2019-01-16] MEDS: RT-ALBUTEROL/IPRATROPIUM 3 ML (DUONEB) VIAL INH SCH ×6 (04:07→21:46)
[2019-01-16] MEDS ORDERED: HALOPERIDOL 5 MG/ML (HALDOL) AMP IV PRN (05:00)
--- NOTE | 2019-01-16 05:01 | Pulmonary Progress Note ---
Subjective Time Seen by a Provider: 04:59 Subjective/Events-last exam Currently on BiPAP however now only requiring 35% fI02. Will switch to vapo therm. Sepsis Event Evaluation Height, Weight, BMI Height: 5'11" Weight: 260lbs. 0.0oz. 117.290702lz; 54.10 BMI Method:Stated Exam Exam Vital Signs Date Time Temp Pulse Resp B/P (MAP) Pulse Ox O2 Delivery O2 Flow Rate FiO2 01/16/19 04:55 NIV Bilevel 35.00 01/16/19 04:11 NIV Bilevel 24.00 01/16/19 04:08 92 30 97 30.00 01/16/19 04:00 NIV Bilevel 30 01/16/19 03:09 37.0 01/16/19 03:00 98 27 152/54 (86) 95 NIV Bilevel 30.00 01/16/19 02:00 96 22 148/58 (88) 97 NIV Bilevel 30.00 01/16/19 01:00 80 01/16/19 01:00 92 21 155/65 (95) 96 NIV Bilevel 30.00 01/16/19 00:00 90 20 162/62 (95) 97 NIV Bilevel 30.00 01/16/19 00:00 NIV Bilevel 30 01/16/19 00:00 37.2 01/15/19 23:00 93 22 168/70 (102) 98 NIV Bilevel 30.00 01/15/19 22:57 97 37 95 30.00 01/15/19 22:13 37.18103 100 20 172/67 98 NIV/Bilevel 30.00 01/15/19 22:00 87 16 143/63 (89) 91 NIV Bilevel 30.00 01/15/19 21:00 112 20 172/66 (101) 96 NIV Bilevel 30.00 01/15/19 20:00 NIV Bilevel 30 01/15/19 20:00 100 20 172/67 (102) 98 NIV Bilevel 30.00 01/15/19 19:26 37.2 115 22 169/68 (101) 90 NIV Bilevel 30.00 01/15/19 19:00 109 01/15/19 19:00 109 21 180/78 (112) 94 NIV Bilevel 30.00 01/15/19 18:21 108 32 94 25.00 01/15/19 18:00 93 31 196/75 (115) 92 NIV Bilevel 30.00 01/15/19 17:00 96 31 186/71 (109) 94 NIV Bilevel 30.00 01/15/19 16:00 96 23 159/63 (95) 93 NIV Bilevel 30.00 01/15/19 16:00 NIV Bilevel 30 01/15/19 15:00 88 39 124/61 (82) 90 NIV Bilevel 30.00 01/15/19 14:09 96 40 91 25.00 01/15/19 14:00 85 24 163/70 (101) 93 NIV Bilevel 30.00 01/15/19 13:49 68 01/15/19 13:00 89 28 169/63 (98) 92 NIV Bilevel 30.00 01/15/19 12:34 NIV Bilevel 30 01/15/19 12:16 93 01/15/19 12:00 92 20 174/73 (106) 94 NIV Bilevel 30.00 01/15/19 12:00 36.8 01/15/19 11:19 80 36 95 25.00 01/15/19 11:00 86 33 167/72 (103) 94 NIV Bilevel 30.00 01/15/19 10:00 77 31 159/71 (100) 95 NIV Bilevel 30.00 01/15/19 09:00 94 10 166/63 (97) 94 NIV Bilevel 30.00 01/15/19 08:45 NIV Bilevel 30 01/15/19 08:00 88 34 151/62 (91) 92 NIV Bilevel 30.00 01/15/19 07:23 95 37 93 25.00 01/15/19 07:00 89 33 156/61 (92) 92 NIV Bilevel 30.00 01/15/19 07:00 105 01/15/19 06:00 100 26 152/66 (94) 98 NIV Bilevel 30.00 01/15/19 05:00 94 29 160/66 (97) 99 NIV Bilevel 30.00 I & O 01/16/19 07:00 Intake Total 310 ml Output Total 2000 ml Balance -1690 ml Height & Weight Height: 5'11" Weight: 260lbs. 0.0oz. 117.742868mc; 54.10 BMI Method:Stated General Appearance: WD/WN, Anxious, Chronically ill, Mild Distress, Obese HEENT: Pale Conjunctivae (L), Pale Conjunctivae (R); No Photophobia Neck: Full Range of Motion, Normal Inspection, Non Tender, Supple Respiratory: Crackles, Decreased Breath Sounds Cardiovascular: Regular Rate, Rhythm Capillary Refill: Less Than 3 Seconds Gastrointestinal: normal bowel sounds, soft, no organomegaly Extremity: Pedal Edema Neurologic/Psychiatric: Alert, Oriented x3, No Motor/Sensory Deficits, Normal Mood/Affect Skin: Cool, Pallor Lymphatic: No Adenopathy Results Lab Laboratory Tests 01/15/19 03:10 01/16/19 02:10 Assessment/Plan Assessment/Plan Acute respiratory failure -Hold Bumex secondary to rising Cr. -BiPAP QHS and Vapotherm during the day. Pulmonary edema with bilateral pleural effusions secondary to IVF -echocardiogram shows normal EF Pneumonia - present on admission -Continue Zosyn for now -Rojas cultures pending Afib RVR with HTN -Cardizem gtt -Lopressor Acute renal failure -Monitor Anasarca -Hold Bumex secondary to rising Cr ICU psychosis -Start Risperdal 1mg BID -PRN Haldol Debility -Consult PT/OT Morbid obesity with OHS and LUIGI Multiple hospitalizations Anemia -Monitor -restart Lovenox and monitor H&H PLAN IS FOR TRANSFER TO [facility] TOMORROW MORNING. DEJA SMITH DO Jan 16, 2019 05:01 POS
[2019-01-16] MEDS: ENOXAPARIN 100 MG/1 ML (LOVENOX) SYR SC SCH ×2 (05:36→17:06)
[2019-01-16] MEDS: PANTOPRAZOLE 40 MG (PROTONIX) VIAL IV SCH ×2 (08:02→20:06)
[2019-01-16] MEDS: meTOprolol TARTRATE 50 MG (LOPRESSOR) TAB PO SCH ×2 (08:02→20:07)
[2019-01-16] MEDS: risperiDONE 1 MG (RisperDAL) TAB PO SCH ×2 (08:02→20:07)
[2019-01-16] MEDS: DILTIAZEM IV FOR DRIP 125 MG in NS (IVPB) 100 ML IV SCH ×2 (08:03→20:06)
--- NOTE | 2019-01-16 08:08 | Diagnostic Imaging Report ---
INDICATION: Shortness of breath COMPARISON: 01/15/2019 FINDINGS: Single view of the chest demonstrates cardiac enlargement with unchanged central vascular congestion and atelectasis. Underlying effusion not excluded. There is no pneumothorax. Right central venous catheter stable. IMPRESSION: Unchanged aeration of lungs. Dictated by: Dictated on workstation # [id number]
--- NOTE | 2019-01-16 13:58 | Progress Note - Hospitalist ---
Subjective HPI/CC On Admission Date Seen by Provider: Jan 16, 2019 Time Seen by Provider: 12:15 * Pt awake and on BiPAP, unaccompanied by family * Complains of no pain or shortness of air today, only that his throat is dry * Conferred with nurse about transferring pt to [facility] facility Subjective/Events-last exam Patient off BiPAP but does not appear to be tolerating that well Still very dyspneic and has conversational pauses due to breathing issues Appears to be a bit confused at times likely due to CO2 narcosis [facility] appears to be a good option for this patient Probiotic will be given due to slight diarrhea noted Overall prognosis is guarded Review of Systems Pulmonary: Dyspnea Objective Exam Vital Signs Vital Signs Date Time Temp Pulse Resp B/P (MAP) Pulse Ox O2 Delivery O2 Flow Rate FiO2 01/16/19 16:00 92 29 196/76 (116) 90 NIV Bilevel 30.00 01/16/19 14:31 40 01/16/19 12:00 36.6 Capillary Refill : Less Than 3 Seconds General Appearance: Anxious, Chronically ill, Moderate Distress Respiratory: Accessory Muscle Use, Crackles, Decreased Breath Sounds, Respiratory Distress Neurologic/Psychiatric: Alert, Oriented x3, No Motor/Sensory Deficits, Normal Mood/Affect, Disoriented Results/Procedures Lab Laboratory Tests 01/16/19 02:10 Patient resulted labs reviewed. Assessment/Plan Assessment and Plan Assess & Plan/Chief Complaint Assessment: Acute on chronic respiratory failure Obesity hypoventilation syndrome Chronic hypercapnia Chronic renal failure Anasarca Volume overload Congestive heart failure Hypertension Plan: BiPAP ICU [facility] likely on Thursday Prognosis poor Diagnosis/Problems Diagnosis/Problems (1) Acute on chronic respiratory failure with hypoxia Status: Acute (2) Obesity hypoventilation syndrome Status: Chronic (3) Lower extremity cellulitis Status: Chronic (4) Pulmonary HTN Status: Chronic (5) Pulmonary edema Status: Acute (6) CAD (coronary artery disease) Status: Chronic Qualifiers: Coronary Disease-Associated Artery/Lesion type: ambler artery [place] vs. 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
--- NOTE | 2019-01-16 15:22 | Progress Note - Cardiology ---
Cardiology SOAP Progress Note Subjective: Short of breath with mild activity No cp or palp or syncope Has gen malaise Objective: I&O/Vital Signs 01/16/19 01/16/19 01/16/19 01/16/19 04:00 04:00 04:08 04:11 Pulse 91 92 Resp 27 30 B/P (MAP) 166/61 (96) Pulse Ox 98 97 O2 Delivery NIV Bilevel NIV Bilevel NIV Bilevel O2 Flow Rate 30.00 30.00 24.00 FiO2 30 01/16/19 01/16/19 01/16/19 01/16/19 04:55 05:00 06:00 07:00 Pulse 89 98 99 Resp 22 18 B/P (MAP) 150/56 (87) 162/61 (94) Pulse Ox 92 99 O2 Delivery NIV Bilevel NIV Bilevel NIV Bilevel O2 Flow Rate 35.00 35.00 35.00 01/16/19 01/16/19 01/16/19 01/16/19 07:12 08:00 08:00 08:03 Pulse 105 109 Resp 22 B/P (MAP) 152/61 (91) Pulse Ox 95 96 95 O2 Delivery Vapotherm Vapotherm Vapotherm O2 Flow Rate 30.00 40.00 20.00 40.00 FiO2 40 30 01/16/19 01/16/19 01/16/19 01/16/19 09:00 10:00 10:35 11:00 Pulse 85 79 85 Resp 9 32 32 B/P (MAP) 127/63 (84) 128/54 (78) 132/61 (84) Pulse Ox 93 95 92 O2 Delivery Vapotherm Vapotherm Vapotherm Vapotherm O2 Flow Rate 20.00 20.00 20.00 20.00 40.00 40.00 40.00 FiO2 40 01/16/19 01/16/19 01/16/19 01/16/19 12:00 12:00 12:00 12:25 Temp 36.6 Pulse 92 92 Resp 27 B/P (MAP) 170/78 (108) Pulse Ox 94 90 O2 Delivery Vapotherm Vapotherm O2 Flow Rate 40.00 20.00 40.00 FiO2 30 01/16/19 01/16/19 01/16/19 13:00 14:00 14:31 Pulse 96 92 Resp 31 29 B/P (MAP) 176/73 (107) 173/77 (109) Pulse Ox 92 90 90 O2 Delivery Vapotherm Vapotherm Vapotherm O2 Flow Rate 20.00 20.00 20.00 40.00 40.00 FiO2 40 01/15/19 23:59 Intake Total 275 ml Output Total 1350 ml Balance -1075 ml Weight (Pounds): 260 Weight (Ounces): 0.0 Weight (Calculated Kilograms): 117.747010 Constitutional: AAO x 3, well-developed, well-nourished, other (on oxygen by nasal cannula) Respiratory: No accessory muscle use; other (fair air entry, diminished at the bases, prolonged exp phase) Cardiovascular: regular rate-rhythm, S1 and S2, systolic murmur (faint PARRIS at card base) Gastrointestional: No tender; soft, distended; No guarding, No rebound; audible bowel sounds Extremities: No clubbing, No cyanosis; significant edema (marked, bilateral, pitting and nonpitting edema) Neurologic/Psychiatric: oriented x 3, other (moves all limbs equally) Skin: other (warm with weeping legs bilateral secondary to significant edema no obvious infection but does have some erythema bilateral.) Results/Procedures: Labs Laboratory Tests 01/15/19 16:32: Glucometer 178H 01/16/19 02:10: White Blood Count 5.2, Red Blood Count 2.75L, Hemoglobin 7.9L, Hematocrit 26L, Mean Corpuscular Volume 95, Mean Corpuscular Hemoglobin 29, Mean Corpuscular Hemoglobin Concent 30L, Red Cell Distribution Width 16.4H, Platelet Count 215, Mean Platelet Volume 8.9, Neutrophils (%) (Auto) 68, Lymphocytes (%) (Auto) 19, Monocytes (%) (Auto) 8, Eosinophils (%) (Auto) 5, Basophils (%) (Auto) 0, Neutrophils # (Auto) 3.5, Lymphocytes # (Auto) 1.0, Monocytes # (Auto) 0.4, Eosinophils # (Auto) 0.2, Basophils # (Auto) 0.0, Sodium Level 146H, Potassium Level 4.3, Chloride Level 108H, Carbon Dioxide Level 24, Anion Gap 14, Blood Urea Nitrogen 50H, Creatinine 1.92H, Estimat Glomerular Filtration Rate 36, BUN/Creatinine Ratio 26, Glucose Level 195H, Calcium Level 8.4L, Corrected Calcium 9.2, Phosphorus Level 3.5, Magnesium Level 2.2, Total Bilirubin 0.4, Aspartate Amino Transf (AST/SGOT) 17, Alanine Aminotransferase (ALT/SGPT) 28, Alkaline Phosphatase 52, Total Protein 6.0L, Albumin 3.0L 01/16/19 02:15: Blood Gas Puncture Site RIGHT ART LINE, Blood Gas Patient Temperature 37.3, Arterial Blood pH 7.37, Arterial Blood Partial Pressure CO2 50H, Arterial Blood Partial Pressure O2 82, Arterial Blood HCO3 28H, Arterial Blood Total CO2 29.4, Arterial Blood Oxygen Saturation 97, Arterial Blood Base Excess 3.1H, Gurwinder Test ART LINE, Blood Gas Ventilator Setting YES, Blood Gas Inspired Oxygen 30% 01/16/19 05:34: Glucometer 195H 01/16/19 11:58: Glucometer 309H Microbiology 01/11/19 Blood Culture - Preliminary, Resulted No growth 01/11/19 MRSA Screen - Final, Complete MRSA not isolated 01/11/19 Urine Culture - Final, Complete NO GROWTH Laboratory Tests 01/15/19 03:10 01/16/19 02:10 A/P: Assessment: Type 2 repiratory failure, multifactorial (see below) Ac diastolic CHF PAF w/ RVR, currently controlled Pulmonary issues: obesity-hypoventilation with cor pulmonale, ac exac of COPD due to pneumonia Echo of 01/11/19 (Dr Gutiérrez): LVEF 55-65%, left atrial dilatation, pulmonary hypertension with PA pressure 50-60 mmHg Marked, chronic leg edema with intermittent cellulitis Acute renal insuff on top or CKD 3. Ac renal insuff probably due to diuretic therapy Coronary artery disease, cath of 2014 showed coronary ectasia with slow flow, no significant obstructive disease Hyperlipidemia, by history Diabetes mellitus II Plan: * Complex management due to multiple comorbidities (see above) * Continue rate-control and stroke prophylaxis for A Fib * Hold diuretics today * Monitor labs RUSH ARITA MD [facility] F[facility] CCDS Jan 16, 2019 15:21 POS
--- NOTE | 2019-01-16 21:00 | NUR ---
RIGHT RADIAL ART LINE NOT OBTAINING A BLOOD PRESSURE READING. ATTEMPTED TO FLUSH ART LINE AND PATIENT GRIMACED IN PAIN AND STATED "IT AIKEN", STOPPED FLUSHING LINE AND PATIENT STATED THAT PAIN WAS GONE. ART LINE VERY POSITIONAL IN ORDER TO OBTAIN A BLOOD PRESSURE READING. ATTEMPTED TO FLUSH LINE A SECOND TIME AND PATIENT IMMEDIATELY GRABBED RIGHT WRIST AND SAID "IT'S BURNING AGAIN". EXPLAINED TO PATIENT THAT IF ART LINE WAS REMOVED ABG'S WOULD STILL NEED TO BE OBTAINED. PATIENT VERBALIZES UNDERSTANDING OF HOW ABG'S ARE OBTAINED WITHOUT AN ART LINE AND STATED "PLEASE TAKE IT OUT". REMOVED ART LINE. PATIENT TOLERATED WELL AND DENIES ANY ADDITIONAL PAIN. PRESSURE HELD ON SITE FOR 5 MIN. PRESSURE DRESSING APPLIED AND DRY/INTACT. RIGHT FINGERS CAP REFILL LESS THAN 2 SECONDS. PATIENT ABLE TO MOVE HAND AND WRIST WITHOUT ANY PAIN.
[2019-01-17] VITALS (16 sets, daily range): BP systolic 112–154; BP diastolic 58–98
[2019-01-17] MEDS: inSUlin ASPART (NovoLOG) 1 UNIT/0.01 ML (CHARGE PER UNIT) SQ SCH ×3 (00:56→11:54)
[2019-01-17] MEDS: RT-ALBUTEROL/IPRATROPIUM 3 ML (DUONEB) VIAL INH SCH ×4 (02:20→14:04)
[2019-01-17 03:30] LABS: BASOPHILS % (AUTO) 0 % (0-10); EOSINOPHILS # (AUTO) 0.2 10^3/uL (0.0-0.3); EOSINOPHILS % (AUTO) 5 % (0-10); HEMATOCRIT 25 % (40-54); HEMOGLOBIN 7.4 G/DL (13.3-17.7); LYMPHOCYTES % (AUTO) 26 % (12-44); MEAN CORPUSCULAR HEMOGLOBIN 29 PG (25-34); MEAN CORPUSCULAR HGB CONC 30 G/DL (32-36); MEAN CORPUSCULAR VOLUME 97 FL (80-99); MEAN PLATELET VOLUME 9.4 FL (7.4-10.4); MONOCYTES # (AUTO) 0.4 X 10^3 (0.0-1.0); MONOCYTES % (AUTO) 10 % (0-12); NEUTROPHILS # (AUTO) 2.2 X 10^3 (1.8-7.8); NEUTROPHILS % (AUTO) 58 % (42-75); PLATELET COUNT 232 10^3/uL (130-400); WHITE BLOOD COUNT 3.8 10^3/uL (4.3-11.0)
[2019-01-17 03:44] LABS: CALCIUM 8.2 MG/DL (8.5-10.1); CREATININE SERUM 1.9 MG/DL (0.60-1.30); MAGNESIUM 2.2 MG/DL (1.6-2.4); POTASSIUM 4.2 MMOL/L (3.6-5.0)
[2019-01-17] MEDS: DILTIAZEM IV FOR DRIP 125 MG in NS (IVPB) 100 ML IV SCH (03:51)
[2019-01-17 04:12] LABS: ABG BASE EXCESS 6.3 MMOL/L (-2.5-2.5); ABG OXYGEN SATURATION 91 % (94-100); ABG PCO2 54 MMHG (35-45); ABG PH 7.38 (7.37-7.43); ABG PO2 59 MMHG (79-93); ABG TCO2 32.9 MMOL/L (21.0-31.0)
[2019-01-17 04:14] LABS: ALLENS TEST YES-POS; INSPIRED O2 30%; PATIENT TEMP 36.9; VENTILATOR NO
--- NOTE | 2019-01-17 04:35 | Pulmonary Progress Note ---
Subjective Time Seen by a Provider: 04:33 Subjective/Events-last exam Pt is doing better only requiring 30% on vapotherm/BiPAP. Currently on BiPAP secondary to LUIGI. PT is expected to transfer to [facility] today. Sepsis Event Evaluation Height, Weight, BMI Height: 5'11" Weight: 260lbs. 0.0oz. 117.612883kr; 54.10 BMI Method:Stated Exam Exam Vital Signs Date Time Temp Pulse Resp B/P (MAP) Pulse Ox O2 Delivery O2 Flow Rate FiO2 01/17/19 03:51 126/81 01/17/19 02:28 107 24 125/80 (95) 96 NIV Bilevel 30.00 01/17/19 02:20 106 34 98 30.00 01/17/19 01:00 101 01/17/19 00:00 90 NIV Bilevel 35 01/16/19 23:11 100 22 128/87 (101) 98 NIV Bilevel 35.00 01/16/19 23:00 99 27 150/103 (119) 97 NIV Bilevel 35.00 01/16/19 22:00 91 24 139/99 (112) 99 NIV Bilevel 35.00 01/16/19 21:49 91 36 130/118 (122) 99 NIV Bilevel 35.00 01/16/19 21:46 91 28 100 35.00 01/16/19 21:30 79 28 122/92 (102) 99 NIV Bilevel 40.00 01/16/19 21:15 92 31 153/97 (115) 100 NIV Bilevel 40.00 01/16/19 21:00 76 23 99/83 (88) 99 NIV Bilevel 40.00 01/16/19 20:45 97 23 109/79 (89) 98 NIV Bilevel 40.00 01/16/19 20:40 94 33 118/97 (104) 93 NIV Bilevel 40.00 01/16/19 20:06 113 172/75 01/16/19 20:04 113 31 183/73 (109) 90 NIV Bilevel 40.00 01/16/19 20:00 36.7 01/16/19 20:00 118 36 92 40.00 01/16/19 20:00 90 Vapotherm 40.00 30 01/16/19 19:15 116 33 201/80 (120) 95 Vapotherm 40.00 70.00 01/16/19 19:09 90 Vapotherm 40.00 70 01/16/19 19:00 101 01/16/19 19:00 101 31 196/81 (119) 89 NIV Bilevel 30.00 01/16/19 18:00 112 36 185/76 (112) 98 NIV Bilevel 30.00 01/16/19 17:00 100 19 179/78 (111) NIV Bilevel 30.00 01/16/19 16:00 92 29 196/76 (116) 90 NIV Bilevel 30.00 01/16/19 16:00 36.3 01/16/19 16:00 94 Vapotherm 40.00 30 01/16/19 14:31 90 Vapotherm 20.00 40 01/16/19 14:00 92 29 173/77 (109) 90 Vapotherm 20.00 40.00 01/16/19 13:00 96 31 176/73 (107) 92 Vapotherm 20.00 40.00 01/16/19 12:25 92 01/16/19 12:00 92 27 170/78 (108) 90 Vapotherm 20.00 40.00 01/16/19 12:00 94 Vapotherm 40.00 30 01/16/19 12:00 36.6 01/16/19 11:00 85 32 132/61 (84) 92 Vapotherm 20.00 40.00 01/16/19 10:35 95 Vapotherm 20.00 40 01/16/19 10:00 79 32 128/54 (78) 93 Vapotherm 20.00 40.00 01/16/19 09:00 85 9 127/63 (84) Vapotherm 20.00 40.00 01/16/19 08:03 109 01/16/19 08:00 105 22 152/61 (91) 95 Vapotherm 20.00 40.00 01/16/19 08:00 96 Vapotherm 40.00 30 01/16/19 07:12 95 Vapotherm 30.00 40 01/16/19 07:00 99 01/16/19 06:00 98 18 162/61 (94) 99 NIV Bilevel 35.00 01/16/19 05:00 89 22 150/56 (87) 92 NIV Bilevel 35.00 01/16/19 04:55 NIV Bilevel 35.00 I & O 01/17/19 07:00 Intake Total 2340 ml Output Total 850 ml Balance 1490 ml Height & Weight Height: 5'11" Weight: 260lbs. 0.0oz. 117.630988ll; 54.10 BMI Method:Stated General Appearance: Anxious, Chronically ill, Mild Distress HEENT: Pale Conjunctivae (L), Pale Conjunctivae (R); No Photophobia Neck: Full Range of Motion, Normal Inspection, Non Tender, Supple Respiratory: Accessory Muscle Use, Crackles, Decreased Breath Sounds, Respiratory Distress Cardiovascular: Regular Rate, Rhythm Capillary Refill: Less Than 3 Seconds Gastrointestinal: normal bowel sounds, soft, no organomegaly Extremity: Pedal Edema Neurologic/Psychiatric: Alert, Oriented x3, No Motor/Sensory Deficits, Normal Mood/Affect, Disoriented Skin: Cool, Pallor Lymphatic: No Adenopathy Results Lab Laboratory Tests 01/16/19 02:10 01/17/19 03:05 Assessment/Plan Assessment/Plan Acute respiratory failure -Hold Bumex secondary to rising Cr. -BiPAP QHS and Vapotherm during the day. -[place] today. Pulmonary edema with bilateral pleural effusions secondary to IVF -echocardiogram shows normal EF Pneumonia - present on admission - Zosyn is now D/C'd -Rojas cultures pending Afib RVR with HTN -Cardizem gtt -Cardiology following -Lopressor Acute renal failure -Monitor Anasarca -Hold Bumex secondary to rising Cr ICU psychosis -Start Risperdal 1mg BID -PRN Haldol Debility -Consult PT/OT Morbid obesity with OHS and LUIGI Multiple hospitalizations Anemia -Monitor -restart Lovenox and monitor H&H PLAN IS FOR TRANSFER TO [facility] TOMORROW MORNING. DEJA SMITH DO Jan 17, 2019 04:35 POS
[2019-01-17] MEDS: MAGNESIUM 1 GM/100 ML IVPB 100 ML IV SCH (05:16)
[2019-01-17] MEDS: ENOXAPARIN 100 MG/1 ML (LOVENOX) SYR SC SCH (05:48)
[2019-01-17] MEDS ORDERED: KCL 20 MEQ TAB (K-DUR) PO SCH (06:00)
[2019-01-17] MEDS ORDERED: POTASSIUM CL 10MEQ/50ML IVPB 50 ML IV SCH (06:00)
[2019-01-17] MEDS: meTOprolol TARTRATE 50 MG (LOPRESSOR) TAB PO SCH (08:36)
[2019-01-17] MEDS: PANTOPRAZOLE 40 MG (PROTONIX) VIAL IV SCH (08:36)
[2019-01-17] MEDS: risperiDONE 1 MG (RisperDAL) TAB PO SCH (08:36)
--- NOTE | 2019-01-17 08:41 | Diagnostic Imaging Report ---
Indication: Dyspnea. Comparison made with prior examination of 01/16/2019. FINDINGS: There is cardiomegaly. Some venous congestion. There is some bibasilar subsegmental atelectasis and pneumonitis. No pneumothorax. The right internal jugular central venous catheter is in satisfactory position. IMPRESSION: Cardiomegaly and mild venous congestion with some bibasilar subsegmental atelectasis and pneumonitis. Dictated by: Dictated on workstation # [id number]
--- NOTE | 2019-01-17 09:00 | Cardiology Progress Note ---
Subjective Date Seen by Provider: Jan 17, 2019 Time Seen by Provider: 08:58 Subjective/Events-last exam Patient is laying down in bed, still on Vapotherm, feeling well. No new complaint, still having shortness of breath Review of Systems General: No Chills, No Night Sweats, No Fatigue, No Malaise, No Appetite, No Other HEENT: No Head Aches, No Visual Changes, No Eye Pain, No Ear Pain, No Dysphasia, No Sinus Congestion, No Post Nasal Drip, No Sore Throat, No Other Pulmonary: Dyspnea; No Cough, No Pleuritic Chest Pain, No Other Cardiovascular: Edema; No: Chest Pain, Palpitations, Orthopnea, Paroxysmal Noc. Dyspnea, Lt Headedness, Other Objective-Cardiology Exam Last Set of Vital Signs Vital Signs 01/17/19 01/17/19 04:00 06:00 Temp 36.9 Pulse 92 Resp 30 B/P (MAP) 143/97 (112) Capillary Refill : Less Than 3 Seconds I&O Intake and Output 01/17/19 00:00 Intake Total 2385 ml Output Total 1450 ml Balance 935 ml Intake Oral 2020 ml IV Total 365 ml Output Urine Total 1450 ml General: Alert, Oriented X3, Cooperative, Mild Distress HEENT: Atraumatic, PERRLA Neck: Supple, No JVD Lungs: Other (Bilateral rhonchi) Heart: Normal S1, Normal S2, Other (Tachycardia) Abdomen: Soft Extremities: No Clubbing, Other (Peripheral edema) Skin: No Rashes, No Significant Lesion Neuro: Normal Speech Psych/Mental Status: Mental Status NL Results Lab Laboratory Tests 01/17/19 03:05 A/P-Cardiology Admission Diagnosis Acute respiratory failure Pulmonary edema Pneumonia Congestive heart failure, acute on chronic left ventricular diastolic dysfunction Assessment/Plan Status post respiratory failure, still on Vapotherm, managed by Dr. Contreras, going to [facility] today. Congestive heart failure, echocardiogram showed normal left ventricular size and function with ejection fraction 60 percent, left atrial dilatation with severe pulmonary hypertension with PA pressure 50-60 mmHg. BNP is elevated, probably acute on chronic left ventricular diastolic dysfunction. Diuretic are on hold secondary to worsening renal function Acute exacerbation of COPD with pneumonia, receiving antibiotics. Managed by primary care team Paroxysmal atrial fibrillation, heart rate is better controlled. Continue to monitor Status post hypotensive shock, currently blood pressure is more stable. Continue to monitor while on Cardizem drip Extensive peripheral edema, chronic edema. Cor pulmonale with severe pulmonary hypertension and venous stasis changes, receiving diuretics. Continue to monitor Acute on chronic renal insufficiency, monitor renal function Cellulitis, treated on the previous admission earlier this month. Currently receiving antibiotics. COPD, acute exacerbation, improving, maintained on prednisone at this time and managed by primary care team Morbid obesity, obesity hypoventilation syndrome and acute respiratory failure. Managed by Dr. Contreras Coronary artery disease, history of cardiac catheterization done in 2014 showing coronary ectasia with slow flow, no significant obstructive disease. Conservative management Hyperlipidemia, monitor lipids Diabetes mellitus, followed and managed by primary care physician Clinical Quality Measures DVT/VTE Risk/Contraindication: Risk Factor Score Per Nursin RFS Level Per Nursing on Admit: 4+=Very High Contraindications-Mechi: Other *list below* Other: Per no lovenox due to patient being on wesquAMI Mojica MD Jan 17, 2019 09:00 POS
--- NOTE | 2019-01-17 11:40 | NUR ---
THIS NURSE NOTIFIED DR SANTACRUZ PT WAS STILL ON CARDIZEM DRIP. DR SANTACRUZ ORDERED CARDIZEM 60 MG PO Q6, HOLD FOR SBP LESS THAN 100 AND HEART LESS THAN 100.
--- NOTE | 2019-01-17 11:50 | Discharge Summary ---
FLORIAIMEEROSANA NEWMAN,MED STUDENT 01/17/19 1150: Diagnosis/Chief Complaint Date of Admission Jan 11, 2019 at 13:47 Date of Discharge Discharge Date: Jan 17, 2019 Primary Care Neymar Degroot MD Discharge Diagnosis (1) Acute on chronic respiratory failure with hypoxia Status: Acute (2) Obesity hypoventilation syndrome Status: Chronic (3) Lower extremity cellulitis Status: Chronic (4) Pulmonary HTN Status: Chronic (5) Pulmonary edema Status: Acute (6) CAD (coronary artery disease) Status: Chronic (7) Diabetes mellitus with hyperglycemia Status: Chronic Discharge Summary Discharge Physical Exam Allergies: Coded Allergies: NKANo Known Allergies (Verified Allergy, Unknown, 05/15/05) Vitals & I&Os Vital Signs Date Time Temp Pulse Resp B/P (MAP) Pulse Ox O2 Delivery O2 Flow Rate FiO2 01/17/19 09:45 80 30 95 30.00 01/17/19 09:00 122/58 (79) Vapotherm 01/17/19 08:00 30 01/17/19 04:00 36.9 General Appearance: Chronically ill, Obese HEENT: PERRL/EOMI, Moist Mucous Membranes Respiratory: Chest Non Tender, No Respiratory Distress, Decreased Breath Sounds (obscurred by BiPAP) Cardiovascular: Irregularly Irregular, Tachycardia Extremity: Inflammation, Pedal Edema, Swelling Skin: Damp, Erythema (LE b/l ) Neurologic/Psychiatric: Alert, Oriented x3 Hospital Course Pt presented to ED via EMS with respiratory distress and fever. Significant past medical hx and frequent hospitalizations due to afib and obesity hypoventilation syndrome followed by Dr. Contreras and Dr. Gutiérrez. BiPAP, lasix and antibiotics started in ED. CXR and ABG gathered. Pt experienced further respiratory distress and was sedated, intubated, started on pressors and admitted to ICU. After stabilization of blood pressure and HR, pt was extubated and started on continuous BiPAP. Agreed to transfer to [facility] with plans to return to [facility] for rehab admission. Labs (last 24 hrs) Laboratory Tests 01/16/19 11:58: Glucometer 309H 01/16/19 17:04: Glucometer 263H 01/17/19 00:55: Glucometer 244H 01/17/19 03:05: White Blood Count 3.8L, Red Blood Count 2.52L, Hemoglobin 7.4L, Hematocrit 25L, Mean Corpuscular Volume 97, Mean Corpuscular Hemoglobin 29, Mean Corpuscular Hemoglobin Concent 30L, Red Cell Distribution Width 16.0H, Platelet Count 232, Mean Platelet Volume 9.4, Neutrophils (%) (Auto) 58, Lymphocytes (%) (Auto) 26, Monocytes (%) (Auto) 10, Eosinophils (%) (Auto) 5, Basophils (%) (Auto) 0, Neutrophils # (Auto) 2.2, Lymphocytes # (Auto) 1.0, Monocytes # (Auto) 0.4, Eosinophils # (Auto) 0.2, Basophils # (Auto) 0.0, Sodium Level 145, Potassium Level 4.2, Chloride Level 107, Carbon Dioxide Level 28, Anion Gap 10, Blood Urea Nitrogen 41H, Creatinine 1.90H, Estimat Glomerular Filtration Rate 36, BUN/Creatinine Ratio 22, Glucose Level 208H, Calcium Level 8.2L, Phosphorus Level 3.0, Magnesium Level 2.2, B-Type Natriuretic Peptide 246.7H 01/17/19 04:00: Blood Gas Puncture Site LEFT RADIAL, Blood Gas Patient Temperature 36.9, Arterial Blood pH 7.38, Arterial Blood Partial Pressure CO2 54H, Arterial Blood Partial Pressure O2 59L, Arterial Blood HCO3 31H, Arterial Blood Total CO2 32.9H , Arterial Blood Oxygen Saturation 91L, Arterial Blood Base Excess 6.3H, Gurwinder Test YES-POS, Blood Gas Ventilator Setting NO, Blood Gas Inspired Oxygen 30% Microbiology 01/11/19 Blood Culture - Final, Complete No growth 01/11/19 MRSA Screen - Final, Complete MRSA not isolated 01/11/19 Urine Culture - Final, Complete NO GROWTH Patient resulted labs reviewed. Pending Labs Laboratory Tests 01/17/19 04:00: Blood Gas Puncture Site LEFT RADIAL, Blood Gas Patient Temperature 36.9, Arterial Blood pH 7.38, Arterial Blood Partial Pressure CO2 54, Arterial Blood Partial Pressure O2 59, Arterial Blood HCO3 31, Arterial Blood Total CO2 32.9, Arterial Blood Oxygen Saturation 91, Arterial Blood Base Excess 6.3, Gurwinder Test YES-POS, Blood Gas Ventilator Setting NO, Blood Gas Inspired Oxygen 30% Discharge Home Medications: Active Scripts Active Reported Eliquis (Apixaban) 5 Mg Tablet 5 Mg PO DAILY Potassium Chloride 20 Meq Tablet.er 20 Meq PO DAILY Cartia Xt (Diltiazem HCl) 240 Mg Cap.er.24h 240 Mg PO DAILY Atorvastatin Calcium 10 Mg Tablet 10 Mg PO HS Losartan Potassium 50 Mg Tablet 100 Mg PO DAILY TAKES 2 (50MG) TABLETS Iprat-Albut 0.5-3(2.5) mg/3 ml (Ipratropium/Albuterol Sulfate) 3 Ml Ampul.neb 3 Ml NEB Q4H PRN Amiodarone HCl 200 Mg Tablet 200 Mg PO BID Aspirin EC (Aspirin) 81 Mg Tablet.dr 81 Mg PO DAILY Toprol Xl (Metoprolol Succinate) 50 Mg Tab.er.24h 50 Mg PO DAILY LAST FILLED #30 11-10-18 Fish Oil 1,000 mg Softgel ([place]-3/Dha/Epa/Fish Oil) 1 Each Capsule 2,000 Mg PO DAILY [Vitamin Pack] 1 Packet PO DAILY Levemir Flextouch (Insulin Detemir) 100 Unit/1 Ml Insuln.pen 80 Units SQ BID Novolog Flexpen (Insulin Aspart) 300 Units/3 Ml Solution 60 Units SQ BIDAC Instructions to patient/family Please see electronic discharge instructions given to patient. Clinical Quality Measures DVT/VTE Risk/Contraindication: Risk Factor Score Per Nursin RFS Level Per Nursing on Admit: 4+=Very High Contraindications-Mechi: Other *list below* Other: Per no lovenox due to patient being on SANDRA De Leon DO 01/17/192107: Diagnosis/Chief Complaint Discharge Diagnosis (1) Acute on chronic respiratory failure with hypoxia Status: Acute (2) Obesity hypoventilation syndrome Status: Chronic (3) Diabetes mellitus with hyperglycemia Status: Chronic (4) Lower extremity cellulitis Status: Chronic (5) Pulmonary HTN Status: Chronic (6) Pulmonary edema Status: Acute (7) Atrial fibrillation with rapid ventricular response Status: Acute (8) LUIGI treated with BiPAP Status: Chronic (9) CKD (chronic kidney disease) Status: Chronic (10) Hyperkalemia Status: Acute (11) COPD (chronic obstructive pulmonary disease) Discharge Summary Discharge Physical Exam Allergies: Coded Allergies: NKANo Known Allergies (Verified Allergy, Unknown, 05/15/05) General Appearance: No Apparent Distress, WD/WN, Chronically ill Respiratory: Decreased Breath Sounds (obscurred by BiPAP), Wheezing Cardiovascular: Irregularly Irregular Neurologic/Psychiatric: Alert, Oriented x3 Hospital Course Was the Problem List Reviewed?: Yes Hospital Course: Pt had a lengthy hospital course for 7 days when he was admitted for acute on chronic respiratory failure with CHF and severe obesity hypoventilation syndrome and previously untreated sleep apnea for quite some time. Renal insufficiency remained stable, creatinine at 1.9, Hgb had been trending down due to phlebotomy but no evidence of any source of bleeding. Pt was maintained on broad spectrum antibiotics, AF with RVR was managed by cardiology and overall his prognosis remains poor but deserved a chance at [place] for 2 weeks to optimize lung function and will try to improve is status but overall prognosis is poor and I did confer with his who has a lot of medical problems herself regarding this plan. Discussion & Recommendations Discharge Planning: <30 minutes discharge planning Supervisory-Addendum Brief Verification & Attestation Participated in pt care: history, MDM, physical Personally performed: exam, history, MDM, supervision of care Care discussed with: Medical Student Procedures: n/a Results interpretation: Verified all documentation Verification and Attestation of Medical Student E/M Service A medical student performed and documented this service in my presence. I reviewed and verified all information documented by the medical student and made modifications to such information, when appropriate. I personally performed the physical exam and medical decision making. Sandra Villagomez, Jan 17, 2019,21:08 Problem Qualifiers (1) CAD (coronary artery disease): Coronary Disease-Associated Artery/Lesion type: [place] artery [place] vs. 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
[2019-01-17] MEDS ORDERED: DILTIAZEM 60 MG (CARDIZEM) TAB PO SCH (12:00)
--- NOTE | 2019-01-17 12:17 | Physical Therapy Daily Note ---
PT Daily Note-Current Subjective Patient agrees to PT at this time. Reports he is feeling pretty good, no pain, and ready to move to next facility to recover. Pain Numeric Pain Scale: 0-No Pain Location: No Pain Reported, Lower Location Body Site: Back Pain Description: Ache Mental Status Patient Orientation: Normal For Age Attachments: Oxygen (BiPap), [place] Catheter, IV Transfers SCALE: Activities may be completed with or without assistive devices. 6-Mmfzrmgayp-tjxmnyx completes the activity by him/herself with no assistance from a helper. 5-Set-up or Clean-up Assistance-helper sets up or cleans up; patient completes activity. [place] assists only prior to or following the activity. 4-Supervision or Touching Assistance-helper provides verbal cues and/or touching /steadying and/or contact guard assistance as patient completes activity. Assistance may be provided throughout the activity or intermittently. 3-Partial/Moderate Assistance-helper does LESS THAN HALF the effort. [place] lifts, holds or supports trunk or limbs, but provides less than half the effort. 2-Substantial/Maximal Assistance-helper does MORE THAN HALF the effort. [place] lifts or holds trunk or limbs and provides more than half the effort. 6-Jvqudehlk-ecuanl does ALL the effort. Patient does none of the effort to complete the activity. Or, the assistance of 2 or more helpers is required for the patient to complete the activity. If activity was not attempted, code reason: 7-Patient Refused. 9-Not Applicable-not attempted and the patient did not perform the activity before the current illness, exacerbation or injury. 10-Not Attempted due to Environmental Limitations-(lack of equipment, weather restraints, etc.). 88-Not Attempted due to Medical Conditions or Safety Concerns. Exercises Supine Ex: Ankle pumps, Heel Slides, Straight leg raise, Hip abd/add Supine Reps: 10 Assessment Patient able to perform bed level exercises only. Patient only able to perform 5 reps of exercises independently and then requested assistance to continue. Minimal assistance required to complete reps. Patient to transfer to [place] today to continue recovery. PT Care Home Goals Germination Worker Goals PT Germination Worker Goals Time Frame: Jan 24, 2019 Sit to Lying (QC): 5 Lying-Sitting on Side/Bed(QC): 5 Sit to Stand (QC): 5 Roll Left to Right (QC): 5 Chair/Cnv-xx-Xhfie Xfer(QC): 5 Car Transfer (QC): 5 Distance: 200' Walk 10 feet (QC): 5 Walk 10ft-Uneven Surface(QC): 5 Walk 50ft with 2 Turns (QC): 5 Walk 150 ft (QC): 5 PT Plan Treatment/Plan Treatment Plan: Discontinue PT Treatment Plan: Bed Mobility, Education, Functional Activity Johanna, Functional Strength, Gait, Safety, Therapeutic Exercise, Transfers Treatment Duration: Jan 24, 2019 Frequency: 6 times per week Estimated Hrs Per Day: .25 hour per day Patient and/or Family Agrees t: Yes Time/GCodes Time In: 1125 Time Out: 1134 Total Billed Treatment Time: 9 Total Billed Treatment 1 visit EX 9min DANIELLE CONTRERAS PT Jan 17, 2019 12:17 POS
[2019-01-17] MEDS ORDERED: DILT60TA30 PO (14:45)
--- NOTE | 2019-01-17 14:53 | NUR ---
THIS NURSE TRIED TO CALL REPORT TO [facility] AT 1330 LEFT NUMBER WITH NURSE. THIS NURSE CALLED BACK AT 1425 AND GAVE REPORT TO DUSTIN HORN.
== END 2019-01-17 15:33 | DRG 871 ==
LOC: ER 11:04 → EDUNIT# 11:04 → ICU 13:47
PROVIDERS: ADMIT Family Medicine; ATTEND Family Medicine
PROC: 5A1945Z Respiratory Ventilation, 24-96 Consecutive Hours (ICD-10-PCS; principal; 2019-01-11)
PROC: 0BH17EZ Insertion of Endotracheal Airway into Trachea, Via Natural or Artificial Opening (ICD-10-PCS; 2019-01-11)
DX: A41.9 Sepsis, unspecified organism (principal); R65.21 Severe sepsis with septic shock; J18.9 Pneumonia, unspecified organism; J96.21 Acute and chronic respiratory failure with hypoxia; J96.02 Acute respiratory failure with hypercapnia; I13.0 Hypertensive heart and chronic kidney disease with heart failure and stage 1 through stage 4 chronic kidney disease, or unspecified chronic kidney disease; I50.33 Acute on chronic diastolic (congestive) heart failure; N18.3 Chronic kidney disease, stage 3 (moderate); J44.0 Chronic obstructive pulmonary disease with (acute) lower respiratory infection; J44.1 Chronic obstructive pulmonary disease with (acute) exacerbation; L03.115 Cellulitis of right lower limb; L03.116 Cellulitis of left lower limb; E66.2 Morbid (severe) obesity with alveolar hypoventilation; R41.0 Disorientation, unspecified; N17.9 Acute kidney failure, unspecified; I27.29 Other secondary pulmonary hypertension; I48.0 Paroxysmal atrial fibrillation; E11.65 Type 2 diabetes mellitus with hyperglycemia; I25.10 Atherosclerotic heart disease of native coronary artery without angina pectoris; D50.0 Iron deficiency anemia secondary to blood loss (chronic); E78.00 Pure hypercholesterolemia, unspecified; E11.40 Type 2 diabetes mellitus with diabetic neuropathy, unspecified; F41.9 Anxiety disorder, unspecified; I87.8 Other specified disorders of veins; M17.0 Bilateral primary osteoarthritis of knee; Z99.81 Dependence on supplemental oxygen; Z79.01 Long term (current) use of anticoagulants; Z87.891 Personal history of nicotine dependence
CPT/HCPCS: 31500; 36415; 51702; 71045; 76604; 80048; 80053; 81000; 82271; 82805; 82962; 83605; 83735; 83880; 84100; 84478; 84484; 85014; 85018; 85025; 85610; 85730; 86141; 86850; 86900; 86901; 86920; 87040; 87070; 87081; 87088; 87205; 87804; 93005; 93306; 94002; 94003; 94640; 94660; 94799; 96365; 96367; 96368; 96375; 99291; 99292

== ENCOUNTER 2019-02-11 10:04 | Inpatient (IN) | payer MEDICARE ==
[~2019-02-11] VITALS: Ht 180.3 cm; Wt 150.0 kg
--- NOTE | 2019-02-11 10:00 | NUR ---
FUAD CARSON admitted to room , with an admitting diagnosis of COPD Myopathy, on from [facility] via EMS, accompanied by EMS crew .FUAD CARSON introduced to surroundings, call light, bed controls, phone, TV, temperature control, lights, meal times, smoking policy, visitor policy, side rail policy, bathrooms and showers. Patient Rights given to patient in the handbook. FUAD CARSON verbalizes understanding that [facility] is not responsible for the loss or damage to any personal effects or valuables that are kept in the patients posession during their hospitalization. The Patient's Care Plans were discussed with the patient as well as Discharge Planning. FUAD CARSON verbalizes understanding of Interdisciplinary Patient Education. Patient and/or family were informed about the Rapid Response Team and its purpose.
[~2019-02-11 10:04] MED LIST changes: +ACETAMINOPHEN 500 MG TAB (TYLENOL) PO PRN; +BISACODYL 10 MG SUPP (DULCOLAX) PR PRN; +CALCIUM CARBONATE 500 MG (TUMS) TAB.CHEW PO PRN; +DILT240C92 PO; -DILT240C97 PO; +DILT60TA30 PO; +DOCUSATE SODIUM 100 MG (COLACE) CAP PO PRN; +FLEET ENEMA ADULT 1 EA BTL PR PRN; +HYDROcodone/APAP 5 MG/325 MG (LORTAB) TAB PO PRN; +LACTULOSE SYRUP 10GM/15ML (ENULOSE) 30ML UDC PO PRN; +LOPERAMIDE 2 MG (IMODIUM) TABLET PO PRN; +ONDANSETRON 4 MG (ZOFRAN) ORAL DISSOLVE TAB PO PRN; +ONDANSETRON 4 MG/2 ML (SDV) Z0FRAN IV PRN; +diphenhydrAMINE 25 MG TAB (BENADRYL) PO PRN; +guaiFENesin/CODEINE (ROBITUSSIN AC) 10ML UDC PO PRN
[2019-02-11 10:59] VITALS: BP 120/72
[2019-02-11] MEDS ORDERED: AZIT500T9 PO ×2 (11:58)
--- NOTE | 2019-02-11 12:05 | PM&R Post Admission Assessment ---
PM&R HP Date of Visit: Feb 11, 2019 Time of Visit: 11:00 History of Present Illness CC: COPD myopathy HPI: This is a 63yoWM known to me from prior admits to [facility] who arrives from [place] from a stay there from 01/17/19-02/11/19 due to anasarca with chronic respiratory failure in need of long-term hospital care who has only been home for a few days since 12/04/18 (12/04-12/09, 12/09-12/10, 12/10-12/13, 12/13-12/20, 12/24 ER visit, 12/28-12/31, 01/11-01/17). He is currently still edematous with 3+ edema of legs and requires bryson catheter. Patient needed bipap fro 2 weeks at [place] and becomes easily encephalopathic when given sedatives. He has chronic anxiety so we will need to be sparing with that. Dr Contreras and Dr Rivera will see him in consultation. Patient appears to have lost some weight while at [facility] but OHA syndrome continues to make his rehab more and more difficult. Prognosis is guarded. Past Rdlcyva-Tvnnbe-Ydlcmp Hx Past Med/Social Hx: Reviewed Nursing Past Med/Soc Hx, Reviewed and Corrections made Patient Social History Marrital Status: Employed/Student: unemployed Alcohol Use: Occasionally Uses Number of Drinks Today: AA Alcohol Beverage of Choice: Beer Recreational Drug Use: No Smoking Status: Former Smoker Former Smoker, Quit: Aug 15, 2005 Type Used: Cigarettes Physical Abuse Screen: No Sexual Abuse: No Recent Foreign Travel: No Contact w/other who traveled: No Recent Hopitalizations: Yes (12/04/18-12/20/18 FOR PNEUMONIA/COPD/AFIB/LEG CELLULITIS/SEPSIS) Recent Infectious Disease Expo: No Immunizations Up To Date Tetanus Booster (TDap): More than 5yrs Date of Pneumonia Vaccine: Jan 06, 2019 Date of Influenza Vaccine: Dec 28, 2018 Seasonal Allergies Seasonal Allergies: No Past Medical History Surgeries: Abdominal, Cardiac Respiratory: COPD, Pneumonia, Sleep Apnea OHA Currently Using CPAP: No Currently Using BIPAP: Yes ([facility]) Cardiac: Atrial Fibrillation, Chronic Edema/Swelling, High Cholesterol, Hypertension Neurological: Neuropathy Reproductive: No Sexually Transmitted Disease: No Genitourinary: Renal Failure Gastrointestinal: Abdominal Hernia Musculoskeletal: Arthritis Endocrine: Diabetes, Insulin dep HEENT: Cataract Loss of Vision: Denies Hearing Impairment: Denies Psychosocial: Sleep Difficulties, Anxiety, Depression History of Blood Disorders: No Family History Diabetes mellitus 19 FATHER G8 BROTHER Hypertension G8 BROTHER Myocardial infarction 19 FATHER, Onset:50's - 60 Occupation: disabled PM&R Allergy/Meds/Data Review Allergies Coded Allergies: NKANo Known Allergies (Verified Allergy, Unknown, 05/15/05) Home Medications Scheduled Amiodarone HCl (Amiodarone HCl), 200 MG PO BID, (Reported) Arformoterol Tartrate (Brovana), 15 MCG IH BID, (Reported) Ascorbic Acid (Vitamin C), 2,000 MG PO DAILY, (Reported) Azithromycin (Azithromycin), 500 MG PO MON,WED,FRI, (Reported) Budesonide (Pulmicort), 1 MG IH BID, (Reported) Buspirone HCl (Buspirone HCl), 10 MG PO BID, (Reported) Enoxaparin Sodium (Enoxaparin Sodium), 40 MG SQ 1700, (Reported) Folic Acid (Folic Acid), 2 MG PO DAILY, (Reported) Guaifenesin (Guaifenesin), 6 ML PO BID, (Reported) Hydralazine HCl (Hydralazine HCl), 25 MG PO BID, (Reported) Insulin Lispro (Humalog), 100 UNIT SQ QIDACHS, (Reported) Lactobacillus Acidophilus (Acidophilus Lactobacilli), 1 EACH PO BID, (Reported) Methylprednisolone Sod Succ/Pf (Solu-Medrol 40 mg Vial), 20 MG IJ Q12H, (Reported) Metoprolol Tartrate (Lopressor), 100 MG PO BID, (Reported) Multivitamin (Multiple Vitamins), 1 EACH PO DAILY, (Reported) Pantoprazole Sodium (Protonix), 40 MG PO DAILY, (Reported) Prednisone (Prednisone), 20 MG PO DAILY, (Reported) Roflumilast (Daliresp), 500 MCG PO DAILY, (Reported) Sildenafil Citrate (Sildenafil), 20 MG PO TID, (Reported) Sodium Chloride For Inhalation (Nebusal), 4 ML IH QID, (Reported) Theophylline Anhydrous (Theophylline Anhydrous), 100 MG PO DAILY, (Reported) Scheduled PRN Acetaminophen (Acetaminophen 8 Hour), 650 MG PO Q6H PRN for PAIN-MILD (1-4) OR TEMPATURE, (Reported) Glucagon,Human Recombinant (Glucagon Emergency Kit), 1 MG IJ UD PRN for HYPOGLYCEMIA, (Reported) Ipratropium/Albuterol Sulfate (Iprat-Albut 0.5-3(2.5) mg/3 ml), 3 ML NEB Q6H PRN for SHORTNESS OF BREATH, (Reported) Ondansetron (Ondansetron Odt), 4 MG PO Q6H PRN for NAUSEA/VOMITING-1ST LINE, (Reported) Discontinued Medications Apixaban (Eliquis), 5 MG PO DAILY, (Reported) Discontinued Reason: No Longer Taking Aspirin (Aspirin EC), 81 MG PO DAILY, (Reported) Discontinued Reason: No Longer Taking Atorvastatin Calcium (Atorvastatin Calcium), 10 MG PO HS, (Reported) Discontinued Reason: No Longer Taking Diltiazem HCl (Cardizem), 60 MG PO Q6H Discontinued Reason: No Longer Taking Insulin Aspart (Novolog Flexpen), 60 UNITS SQ BIDAC, (Reported) Discontinued Reason: No Longer Taking Insulin Detemir (Levemir Flextouch), 80 UNITS SQ BID, (Reported) Discontinued Reason: No Longer Taking Losartan Potassium (Losartan Potassium), 100 MG PO DAILY, (Reported) Discontinued Reason: No Longer Taking Metoprolol Succinate (Toprol Xl), 50 MG PO DAILY, (Reported) Discontinued Reason: Duplicate Order [place]-3/Dha/Epa/Fish Oil (Fish Oil 1,000 mg Softgel), 2,000 MG PO DAILY, (Reported) Discontinued Reason: No Longer Taking Potassium Chloride (Potassium Chloride), 20 MEQ PO DAILY, (Reported) Discontinued Reason: No Longer Taking [Vitamin Pack], 1 PACKET PO DAILY, (Reported) Discontinued Reason: Duplicate Order Current Medications Current Medications Reviewed Review of Systems Constitutional: see HPI, malaise, weakness Respiratory: dyspnea on exertion, short of breath, wheezing Cardiovascular: edema Psychiatric/Neurological: Anxiety Physical Exam Physical Exam Vital Signs Vital Signs - First Documented 02/11/19 10:59 Temp 36.9 Pulse 118 Resp 22 B/P (MAP) 120/72 Pulse Ox 91 O2 Delivery Nasal Cannula O2 Flow Rate 2.00 Capillary Refill : Height, Weight, BMI Height: 5'11" Weight: 260lbs. 0.0oz. [id number]; 0.00 BMI Method:Stated General Appearance: No Apparent Distress, WD/WN, Anxious, Chronically ill, Obe se Eyes: Bilateral Eye Normal Inspection, Bilateral Eye PERRL HEENT: PERRL/EOMI, Normal ENT Inspection, Pharynx Normal Neck: Full Range of Motion, Normal Inspection, Non Tender, Supple, Carotid Bruit Respiratory: Chest Non Tender, Lungs Clear, No Accessory Muscle Use, No Respiratory Distress, Decreased Breath Sounds Cardiovascular: Regular Rate, Rhythm, No Gallop, No JVD, No Murmur, Normal Peripheral Pulses Gastrointestinal: Normal Bowel Sounds, No Organomegaly, No Pulsatile Mass, Non Tender, Soft Back: Normal Inspection, No CVA Tenderness, No Vertebral Tenderness Extremity: Normal Capillary Refill, Normal Inspection, Normal Range of Motion, Non Tender, No Calf Tenderness, No Pedal Edema, Pedal Edema Neurologic/Psychiatric: Alert, Oriented x3, No Motor/Sensory Deficits, Normal Mood/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, 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 Norm as Tested Skin: Normal Color, Warm/Dry Lymphatic: No Adenopathy PM&R Medical Assessment & Plan REHAB/MEDICAL ASSESSMENT AND PLAN: REHAB IMPAIRMENT GROUP: COPD myopathy ETIOLOGIC DIAGNOSIS: Severe COPD with OHA and AF and Anasarca The comorbidities that impact the patients function and/or functional outcome by: Severe respiratory failure acute on chronic, AF REHAB PLAN: The patient is being admitted to our comprehensive inpatient rehabilitation facility and can tolerate the intensity of service consisting of at least: 180 minutes of therapy a day, 5 out of 7 days a week Rehab treatment will consist of: PT will help regain ambulation skills, OT tracy help regain ADL's The patient/family has a good understanding of our discharge process and will benefit from an interdisciplinary inpatient rehabilitation program. The patient has potential to make improvement and is in need of at least two of the following multidisciplinary therapies including but not limited to physical, occupational, speech, and prosthetics and orthotics. Additionally the patient will need services from respiratory, nutritional services, wound care, psychology, etc. (Customize this to each patient). Given the patients complex condition and risk of further medical complications, rehabilitation services cannot be safely or effectively provided at a lower level of care such as a half-way facility. BARRIERS TO DISCHARGE: Ability to maintain respiratory status ESTIMATED LOS: 10 days DISPOSITION: Home with home care RELEVANT CHANGES SINCE PREADMISSION SCREENING: I have compared the patients medical and functional status at the time of the preadmission screening and there are: no changes PROGNOSIS: Guarded REHABILITATION GOALS: 1. PT has been dependent on aggressive inpatient hospital care since 12/04/18 so returning home will be a challenge considering respiratory status continues to be an issue All the above goals were reviewed with the patient and he/she is in agreement. By signing this document, I acknowledge that I have personally performed a full physical examination on this patient within 24 hours of admission to this inpatient rehabilitation facility and have determined the patient to be able to tolerate the above course of treatment at an intensive level for a reasonable period of time. I will be completing a detailed individualized Plan of Care for this patient by day #4 of the patients stay based upon the Preadmission Screen, the Post-Admission Evaluation, and the therapy evaluations. Admission Dx/Comorbidities: (1) Myopathy Status: Acute ICD Codes: G72.9 - Myopathy, unspecified (2) Atrial fibrillation ICD Codes: I48.91 - Unspecified atrial fibrillation (3) Anasarca ICD Codes: R60.1 - Generalized edema (4) Fair prognosis (5) Debility ICD Codes: R53.81 - Other malaise (6) Bryson catheter in place ICD Codes: Z96.0 - Presence of urogenital implants (7) Acute on chronic respiratory failure with hypoxia Status: Acute ICD Codes: J96.21 - Acute and chronic respiratory failure with hypoxia (8) LUIGI treated with BiPAP Status: Chronic ICD Codes: G47.33 - Obstructive sleep apnea (adult) (pediatric) (9) CKD (chronic kidney disease) Status: Chronic ICD Codes: N18.9 - Chronic kidney disease, unspecified (10) COPD (chronic obstructive pulmonary disease) ICD Codes: J44.9 - Chronic obstructive pulmonary disease, unspecified (11) Diabetes mellitus with hyperglycemia Status: Chronic ICD Codes: E11.65 - Type 2 diabetes mellitus with hyperglycemia (12) Obesity hypoventilation syndrome Status: Chronic ICD Codes: E66.2 - Morbid (severe) obesity with alveolar hypoventilation (13) Pulmonary HTN Status: Chronic ICD Codes: I27.20 - Pulmonary hypertension, unspecified (14) Pulmonary edema Status: Acute ICD Codes: J81.1 - Chronic pulmonary edema (15) CAD (coronary artery disease) Status: Chronic ICD Codes: I25.10 - Atherosclerotic heart disease of [place] coronary artery without angina pectoris (16) DVT prophylaxis Status: Acute ICD Codes: Z29.9 - Encounter for prophylactic measures, unspecified (17) Lymphedema ICD Codes: I89.0 - Lymphedema, not elsewhere classified (18) Hypoxia Status: Acute ICD Codes: R09.02 - HYPOXEMIA (19) Respiratory insufficiency ICD Codes: R06.89 - Other abnormalities of breathing (20) Hypercapnia Status: Acute ICD Codes: R06.89 - Other abnormalities of breathing (21) Obesity Status: Acute ICD Codes: E66.9 - Obesity, unspecified (22) HTN (hypertension) Status: Acute ICD Codes: I10 - Essential (primary) hypertension YARIEL BUI DO Feb 11, 2019 12:05 POS
[2019-02-11] MEDS: SENNA W/DOCUSATE (SENOKOT S) TABLET PO SCH ×2 (12:09→21:30)
[2019-02-11] MEDS: POLYETHYLENE GLYCOL 17 GM (MIRALAX) PACK PO SCH ×2 (12:09→21:30)
[2019-02-11] MEDS: DOCUSATE SODIUM 100 MG (COLACE) CAP PO SCH ×2 (12:09→21:30)
[2019-02-11] MEDS ORDERED: ENOX40DI8 SQ ×2 (12:13)
[2019-02-11] MEDS ORDERED: HYDR-3923 PO ×2 (12:13)
[2019-02-11] MEDS ORDERED: ASCO10006 PO ×2 (12:13)
[2019-02-11] MEDS ORDERED: SILD20TA14 PO ×2 (12:13)
[2019-02-11] MEDS ORDERED: GUAI100L13 PO ×2 (12:13)
[2019-02-11] MEDS ORDERED: GLUC1KIT IJ ×2 (12:13)
[2019-02-11] MEDS ORDERED: LACT1CAP87 PO ×2 (12:13)
[2019-02-11] MEDS ORDERED: MULT-178 PO ×2 (12:13)
[2019-02-11] MEDS ORDERED: PRD20T PO (12:13)
[2019-02-11] MEDS ORDERED: ROFL500T PO ×2 (12:13)
[2019-02-11] MEDS ORDERED: METO-461 PO ×2 (12:13)
[2019-02-11] MEDS ORDERED: BUSP10TA95 PO (12:13)
[2019-02-11] MEDS ORDERED: FOLI1TAB24 PO ×2 (12:13)
[2019-02-11] MEDS ORDERED: PANT40TA2 PO ×2 (12:13)
[2019-02-11] MEDS ORDERED: INSU100V SQ ×2 (12:13)
--- NOTE | 2019-02-11 12:43 | Occupational Therapy Eval ---
OT Evaluation-General/PLF Medical Diagnosis Admission Date Feb 11, 2019 at 10:04 Medical Diagnosis: COPD Myopathy Onset Date: Feb 11, 2019 Therapy Diagnosis Therapy Diagnosis: impaired ADLs and functional mobility Height/Weight Height (Feet): 5 Height (Inches): 11 Weight (Pounds): 260 Weight (Ounces): 0.0 Precautions Precautions/Isolations: Fall Prevention, Standard Precautions, Pressure Ulcer Referral Physician: Hernando Referral Reason: Activity Tolerance, Self Care, Evaluation/Treatment, Strengthening/ROM Medical History Pertinent Medical History: Atrial Fib, CAD, COPD, DM, HTN, Neuropathy Additional Medical History high cholesterol, chronic edema/swelling Current History Pt was recently hospitalized 12/04/18-12/20/18 for pneumonia, COPD, AFib, leg celluitis, and sepsis. Pt was admitted to [facility] on 02/11/19 [facility], with dx of COPD myopathy. Reviewed History: Yes Social History Home: Single Level Current Living Status: Spouse Entry Into Home: Stairs With Railing Steps Into Home: 3 3 steps at front of house, 0 steps at back of house. ADL-Prior Level of Function SCALE: Activities may be completed with or without assistive devices. 3-Xqcodgdcdh-atuenzk completes the activity by him/herself with no assistance from a helper. 5-Set-up or Clean-up Assistance-helper sets up or cleans up; patient completes activity. Antoine assists only prior to or following the activity. 4-Supervision or Touching Assistance-helper provides verbal cues and/or to uching/steadying and/or contact guard assistance as patient completes activity. Assistance may be provided throughout the activity or intermittently. 3-Partial/Moderate Assistance-helper does LESS THAN HALF the effort. Antoine lifts, holds or supports trunk or limbs, but provides less than half the effort. 2-Substantial/Maximal Assistance-helper does MORE THAN HALF the effort. Antoine lifts or holds trunk or limbs and provides more than half the effort. 2-Qtfduxtkp-ayjorw does ALL the effort. Patient does none of the effort to complete the activity. Or, the assistance of 2 or more helpers is required for the patient to complete the activity. If activity was not attempted, code reason: 7-Patient Refused. 9-Not Applicable-not attempted and the patient did not perform the activity before the current illness, exacerbation or injury. 10-Not Attempted due to Environmental Limitations-(lack of equipment, weather restraints, etc.). 88-Not Attempted due to Medical Conditions or Safety Concerns. ADL PLOF Comments Pt reported being independent with all ADLs prior to this hospitalization. He states he was able to don socks using a sock aide. Self Care: Independent Functional Cognition: Independent DME/Equipment: Grab Bars (1 at shower), Shower (walk in) DME/Equipment Comments FWW OT Current Status Subjective Pt agreeable to OT evaluation after finishing PT evaluation. Pt seated EOB at start of tx, reported he was not having any pain. Mental Status/Objective Patient Orientation: Person, Place, Time, Situation Attachments: Molina Catheter, Oxygen Current Glasses/Contacts: Yes Hearing Aids: No Dentures/Partials: No Hand Dominance: Right Upper Extremity ROM WFL, pt able to flex BUE to approximately 160 degrees, he can bend his elbows to touch the back of his head. Upper Extremity Coordination WFL finger to nose test BUE Upper Extremity Sensation pt reported no changes in sensation BUE, denies tingling/numbness Upper Extremity Strength grossly 3+/5 MMT BUE Edema: edema present BLE ADL-Treatment Eating (QC): 6 (Pt reports having no difficulty opening containers and bringing food to his mouth.) Oral Hygiene (QC): 5 (pt completed task with set up assistance seated in w/c at sink) Shower/Bathe Self (QC): 1 (Pt able to wash BUE, chest, abdomen, periarea, and BLE upper legs. Pt required assistance cleaning BLE lower legs and feet, and buttocks. To wash buttocks, sit to stand lift was required causing dependent score.) Upper Body Dressing (QC): 3 (Pt able to kemar/doff hospital gown from arms, required assistance with tying/untying gown. ) Lower Body Dressing (QC): 1 (Sit to stand lift required in order to kemar brief. Pt unable to assist with donning brief.) On/Off Footwear (QC): 1 (Pt unable to reach feet in order to don/doff footwear. OT assisted with all parts of task. ) Toileting Hygiene (QC): 1 (Pt required assist for clothing management and wa shing buttocks this session.) Toilet Transfer (QC): 1 (Based on clinical reasoning and this tx, pt requires sit to stand lift to transfer to/from BSC or toilet.) Other Treatments Pt seated EOB, provided information about PLOF and home set up for OT evaluation. OT/PT then co-treated secondary to decreased functional mobility and medical complexity requiring the skills of 2 disciplines that a occupational therapy supervisor could not perform. OT focused on UE placement, sequencing, and ADLs, while PT focused on overall gross movements and LE placement. Pt attempted to complete stand with PT but was unsuccessful after multiple trials, sit to stand lift was then utilized to transfer pt to w/c. Pt self propelled w/c to therapy gym where BUE dowel exercises were complete in order to increase functional endurance and BUE strengthening. Pt completed x15 reps of shoulder flexion, elbow flexion, and elbow extension. Pt then able to self propel w/c back to his room to complete ADLs. Pt washed his hair, face and brushed his teeth seated in w/c at sink. He then completed a sponge bath and dressing in w/c. Pt then transferred using sit to stand lift, brief was donned and washing of buttocks was performed before sitting EOB. Pt transferred sit to supine with assist for BUE. Once in bed, PT ended their tx, while OT continued. OT assisted pt with combing his hair secondary to having knots in the back that he was unable to get out himself. Post OT session, pt laying in bed, call light in reach and all needs met. Education OT Patient Education: Correct positioning, Energy conservation, Exercise p rogram, Modified ADL techniques, Progress toward Goal/Update tx plan, Purpose of tx/functional activities, Rehab process, Safety issues, Transfer techniques Teaching Recipient: Patient Teaching Methods: Demonstration, Discussion Response to Teaching: Verbalize Understanding, Return Demonstration OT Short Term Goals Short Term Goals Time Frame: Feb 25, 2019 Toileting hygiene: 2 Lower body dressin Putting on/taking off footwear: 2 OT Level Vial Inside Grinder Goals Level Vial Inside Grinder Goals Time Frame: Mar 11, 2019 Eating (QC): 6 Oral Hygiene (QC): 6 Toileting Hygiene (QC): 6 Shower/Bathe Self (QC): 6 Upper Body Dressing (QC): 6 Lower Body Dressing (QC): 6 On/Off Footwear (QC): 6 Additional Goals: 1-Demonstrate ADL Tasks, 2-Verbalize Understanding, 3-ImproveStrength/Johanna 1=Demonstrate adherence to instructed precautions during ADL tasks. 2=Patient will verbalize/demonstrate understanding of assistive devices/modifications for ADL. 3=Patient will improve strength/tolerance for activity to enable patient to perform ADL's. OT Education/Plan Problem List/Assessment Assessment: Decreased Activ Tolerance, Decreased UE Strength, Dependent Transfers, Impaired Bed Mobility, Impaired Funct Balance, Impaired I ADL's, Impaired Self-Care Skills Discharge Recommendations Plan/Recommendations: Continue POC Treatment Plan/Plan of Care Treatment,Training & Education: Yes Patient would benefit from OT for education, treatment and training to promote independence in ADL's, mobility, safety and/or upper extremity function for ADL's. Plan of Care: ADL Retraining, Caregiver Training, Functional Mobility, Group Exercise/Act as Ind, UE Funct Exercise/Act Treatment Duration: Mar 11, 2019 Frequency: At least 5 of 7 days/Wk (IRF) Estimated Hrs Per Day: 1.5 hours per day Agreement: Yes Rehab Potential: Guarded Time/GCodes Start Time: 10:10 Stop Time: 11:40 Total Time Billed (hr/min): 90 Billed Treatment Time [id number] OT evaluation [id number] [place] with PT [id number] OT tx 1, EVM (10min), EX (15mins), ADL 3 (45 mins), FA (20mins) CHIRAG HAN OT Feb 11, 2019 12:43 POS
--- NOTE | 2019-02-11 12:51 | Physical Therapy Evaluation ---
PT Evaluation-General Medical Diagnosis Admission Date Feb 11, 2019 at 10:04 Medical Diagnosis: COPD myopathy Onset Date: Feb 11, 2019 Therapy Diagnosis Therapy Diagnosis: impaired gait, general weakness, impaired balance, decreased activity brody Height/Weight Height (Feet): 5 Height (Inches): 11 Weight (Pounds): 260 Weight (Ounces): 0.0 Precautions Precautions/Isolations: Fall Prevention, Standard Precautions, Pressure Ulcer Weight Bear Status Full Weight Bearing Full Weight Bearing Referral Physician: Sandra Villagomez DO Reason for Referral: Evaluation/Treatment Medical History Pertinent Medical History: Atrial Fib, CAD, COPD, DM, HTN, Neuropathy Additional Medical History Past Medical History Surgeries: Abdominal, Cardiac Respiratory: COPD, Pneumonia Currently Using CPAP: No Currently Using BIPAP: Yes ([facility]) Cardiac: Atrial Fibrillation, Chronic Edema/Swelling, High Cholesterol, Hype rtension Neurological: Neuropathy Reproductive: No Sexually Transmitted Disease: No Genitourinary: Renal Failure Gastrointestinal: Abdominal Hernia Musculoskeletal: Arthritis Endocrine: Diabetes, Insulin dep HEENT: Cataract Loss of Vision: Denies Hearing Impairment: Denies Psychosocial: Sleep Difficulties, Anxiety, Depression History of Blood Disorders: No Reviewed History: Yes Social History Home: Single Level Current Living Status: Spouse (home 99% of the time per pt) Entry Into Home: Stairs With Railing PT Steps Into Home: 3 PT Steps Inside Home: 0 Prior Prior Level of Function SCALE: Activities may be completed with or without assistive devices. 8-Cnbthufocc-gxajvpz completes the activity by him/herself with no assistance from a helper. 5-Set-up or Clean-up Assistance-helper sets up or cleans up; patient completes activity. [place]in[place] assists only prior to or following the activity. 4-Supervision or Touching Assistance-helper provides verbal cues and/or touching/steadying and/or contact guard assistance as patient completes activity. Assistance may be provided throughout the activity or intermittently. 3-Partial/Moderate Assistance-helper does LESS THAN HALF the effort. Seminole l ifts, holds or supports trunk or limbs, but provides less than half the effort. 2-Substantial/Maximal Assistance-helper does MORE THAN HALF the effort. [place]inole lifts or holds trunk or limbs and provides more than half the effort. 3-Jibpeoxyc-asckye does ALL the effort. Patient does none of the effort to complete the activity. Or, the assistance of 2 or more helpers is required for t he patient to complete the activity. If activity was not attempted, code reason: 7-Patient Refused. 9-Not Applicable-not attempted and the patient did not perform the activity before the current illness, exacerbation or injury. 10-Not Attempted due to Environmental Limitations-(lack of equipment, weather restraints, etc.). 88-Not Attempted due to Medical Conditions or Safety Concerns. Bed Mobility: 6 Transfers (B,C,W/C): 6 Gait: 6 Stairs: 6 Indoor Mobility (Ambulation): Independent Stairs: Independent Prior Devices Use: Walker pt reports he was able to do everything on his own with no help but his is home if he ever needs help. Pt reports he is on 4L of O2 at home. Pt reports his also is on 10L of O2 at home. PT Evaluation-Current Subjective pt in bed pre-tx agrees to therapy at this time and 8/10 pain in B/L LE "between the hip and kneecaps" This session will be Co-tx with OT secondary to the need for 2 skilled therapist to perform transfers, bed mobility, ambulation attempts, and to coordinate UE and LE for functional activities. Pt/Family Goals pt in bed post TX with OT in room to finish with therapy. All needs met at this time. Objective Patient Orientation: Person, Place, Time, Situation Attachments: Oxygen (2L N/C), Molina Catheter, IV ROM/Strength ROM Lower Extremities LE ROM WNL except for B/L dorsiflexion is limited to neutral secondary to high amount of edema in LE's with soft end feel Strength Lower Extremities B/L hip flexion 3+/5 B/L knee flexion 4-/5 B/L knee extension untestable secondary to pain over patellas. Integumentary/Posture Integumentary see nursing notes Bladder Incontinence: Molina Cath Sensory Vision: Wears Glasses Hearing: Functional Sensation Right Lower Extremit: Impaired Sensation Left Lower Extremity: Impaired Sensation Lower Extremities B/L tips of toes pt is unable to report soft touch. pt able to report touch in all other dermatome patterns Transfers Roll Left to Right (QC): 3 (Demario) Sit to Lying (QC): 3 (modA) Lying to Sitting/Side of Bed(Q: 3 (modA) Sit to Stand (QC): 1 (sit to stand machine) Chair/Yka-nf-Obrig Xfer(QC): 1 (sit to stand machine) Car Transfer (QC): 88 pt unable to stand with MaxA. sit to stand machine used to transfer from WC to/from Bed Gait Does the Patient Walk?: No and Walking Goal IS indicated Mode of Locomotion: Wheelchair Anticipated Mode of Locomotion: Both Walk 10 feet (QC): 88 Walk 50 ft with 2 Turns(QC): 88 Walk 150 ft (QC): 88 Walking 10ft/uneven surface-QC: 88 Wheelchair Training Does the Pt Use a Wheelchair?: Yes Distance: 100x2 Wheel 50 ft with 2 turns (QC): 3 (Demario) Wheel 150 ft (QC): 88 Type of Wheelchair: Manual pt requires multiple breaks during self propulsion to rest and catch his breath. Pt is slow with propulsion and gets too close to doors and tsang without awareness. Stairs 1 Step (curb) (QC): 88 4 Steps (QC): 88 12 Steps (QC): 88 Balance Sitting Static: Fair Sitting Dynamic: Poor Standing Static: Poor Standing Dynamic: Poor Picking up an Object (QC): 88 Treatment pt performed functional LE strengthening (10 reps: QS's, GS's, HS's, AP's, LAQ's, hip flexion, hip ABD/ADD), transfer training, bed mobility training, and education. PT assisted with balance while OT accessed ADL's, dressing, and bathing. OT assisted with UE placement for transfers and mobility while PT assisted with LE placement for transfers and mobility. OT assisted with balance while PT performed functional exercises. Assessment/Needs pt is unable to give very much effort into stand attempts and requires mod-max cuing for UE placement for sit to stand. Pt is unable to stand or transfer without sit to stand machine at this time. pt is able to self propel in a manual WC however has very little awareness for space and safety and runs into tsang and door frames. Pt with very edematous B/L LE this date. Rehab Potential: Guarded PT Short Term Goals Short Term Goals Time Frame: Feb 18, 2019 Roll Left & Right: 4 (SBA) Sit to lyin (Demario) Lying to sitting on side of be: 3 Sit to stand: 2 (maxA) Chair/myo-ci-cligi transfer: 2 (maxA) PT Building Services Supervisor Goals Building Services Supervisor Goals PT Chcf Goals Time Frame: Mar 04, 2019 Roll Left & Right (QC): 6 Sit to Lying (QC): 4 (SBA) Lying-Sitting on Side/Bed(QC): 4 (SBA) Sit to Stand (QC): 3 (Demario) Chair/Hhk-ax-Adqir Xfer(QC): 3 (Demario) Toilet Transfer (QC): 3 (Demario) Car Transfer (QC): 3 (Demario) Does the Patient Walk: No and Walking Goal IS indicated Walk 10 feet (QC): 3 (Demario) Walk 50ft with 2 Turns (QC): 3 (Demario) Walk 150 ft (QC): 88 Walking 10ft on Uneven Surface: 88 1 Step (curb) (QC): 3 (modA) 4 Steps (QC): 88 12 Steps (QC): 88 Picking up an Object (QC): 88 Does the Pt use WC or Scooter?: Yes Wheel 50 feet with 2 turns (QC: 6 Type: Manual Wheel 150 feet: 6 Type: Manual PT Plan Problem List Problem List: Activity Tolerance, Functional Strength, Safety, Balance, Gait, Transfer, Bed Mobility, ROM Treatment/Plan Treatment Plan: Continue Plan of Care Treatment Plan: Bed Mobility, Concurrent Therapy, Education, Functional Activity Johanna, Functional Strength, Group Therapy, Gait, Safety, Therapeutic Exercise, Transfers Treatment Duration: Mar 04, 2019 Frequency: At least 5 of 7 days/Wk (IRF) Estimated Hrs Per Day: 1.5 hours per day Patient and/or Family Agrees t: Yes Safety Risks/Education Patient Education: Transfer Techniques, Correct Positioning, W/C Management, Safety Issues Teaching Recipient: Patient Teaching Methods: Demonstration, Discussion Response to Teaching: Return Demonstration, Reinforcement Needed Discharge Recommendations Plan pt will perform transfer training, bed mobility training, skilled ambulation training, functional LE strengthening, step training, and education Therapy Discharge Recommendati: Other, See Comments (home with family or NH) Time/GCodes Time In: 1000 Time Out: 1130 Total Billed Treatment Time: 80 Total Billed Treatment PT eval [id number] OT eval [id number] Co-TX with OT [id number] 1 visit EVM 10' (1) FA 50' (3) WCH 20' (1) MARINO VEGA PT Feb 11, 2019 12:51 POS
[2019-02-11] MEDS ORDERED: THEO100T16 PO ×2 (13:01)
[2019-02-11] MEDS ORDERED: ARFO15VI3 IH ×2 (13:01)
[2019-02-11] MEDS ORDERED: METH40VI2 IJ ×2 (13:01)
[2019-02-11] MEDS ORDERED: ACET650T41 PO ×2 (13:01)
[2019-02-11] MEDS ORDERED: ONDA4TAB11 PO ×2 (13:01)
[2019-02-11] MEDS ORDERED: BUDE1AMP IH ×2 (13:01)
[2019-02-11] MEDS ORDERED: SODI4VIA26 IH ×2 (13:01)
--- NOTE | 2019-02-11 13:06 | NUR ---
ENTERED MED REC FROM THE [facility]
[2019-02-11 13:39] VITALS: BP 120/72
[2019-02-11] MEDS ORDERED: INSULIN LISPRO 100 UNIT SQ SCH (14:00)
[2019-02-11] MEDS ORDERED: RT-ALBUTEROL/IPRATROPIUM 3 ML (DUONEB) VIAL IH PRN (14:00)
[2019-02-11] MEDS ORDERED: AZITHROMYCIN 500 MG PO SCH (14:00)
[2019-02-11] MEDS ORDERED: guaiFENesin SYRUP 100 MG/5 ML 10 ML (ROBITUSSIN SF) PO PRN (14:00)
[2019-02-11] MEDS ORDERED: ONDANSETRON 4 MG (ZOFRAN) ORAL DISSOLVE TAB PO PRN (14:00)
--- NOTE | 2019-02-11 14:51 | ST Cognitive Linguistic Eval ---
Speech Evaluation-General Medical Diagnosis COPD myopathy Onset Date: Feb 11, 2019 Therapy Diagnosis Therapy Diagnosis: Cognitive-communication Referral Referring Physician: Dr. Villagomez Medical History Pertinent Medical History: Atrial Fib, CAD, COPD, DM, HTN, Neuropathy Reviewed History: Yes Social History Current Living Status: Spouse (home 99% of the time per pt) Speech PLF-Current Status Prior Level of Function Patient lived at home with his where he was independent for much of his daily needs. Subjective Patient was cooperative with the cognitive assessment. Language Eval: Auditory Comprehends Simple Yes/No Ques: Functional Indent/Objects Multiple Willson: Functional Ident/Pics in Multiple Willson: Functional Follows 1-Step Commands: Functional Follows Complex Directions: Functional Follows General Conversations: Functional Language Eval: Verbal Language Completes Spontaneous Greeting: Functional Produces Auto, Serial Info: Functional Imitates Simple Words/Phrases: Functional Word Finding: Functional Requests Basic Needs: Functional States Basic Personal Info: Functional Expresses Complex Ideas: Functional Objective Cognitive Domain Attention: WNL Memory: Mild Problem Solving: Functional Executive Functions: WNL Visuospatial Skills: WNL Composite Severity Rating: WNL Clock Drawing Severity Rating: WNL Objective Formal/Standardized Tests [facility] Mental Status ([facility]) Results 27/30, within normal range of function Oral Motor/Speech Production Within Normal Limits Impression Patient is a 63 year old male who was re-admitted to the ARU for strengthening in order to return home safely. He was given the SLUMS with a score of 27/30 obtained. This score is within the normal range of function. The patient does not require further skilled ST services at this time. Speech Patient Assess Expression of Ideas/Wants: Expression (4) Understanding Verbal Content: Understands (4) Brief Interview-Mental Status: Yes Repetition of Three Words: Three (3) Temporal Orientation: Year: Correct (3) Temporal Orientation: Month: Accurate within 5 days(2) Temporal Orientation: Day: Correct (1) Recall : Wear to say "Sock": Yes, no cue required (2) Recall : Color: Yes, after cueing (1) Recall : Bed: Yes,after cueing (1) Memory/Recall Ability: Current season, Location of own room, Staff names and faces, That he or she is in a hsp/hsp unit Speech-Plan Patient/Family Goals Patient/Family Goals: Patient plans on returning home with his upon rehab discharge. Treatment Plan Speech Therapy Treatment Plan: Discontinue ST Patient does not require further ST services at this time. Treatment Duration: Feb 11, 2019 Frequency: 1 time per week Estimated Hrs Per Day: .25 hour per day Rehab Potential: Guarded Barriers to Learning: None identified Pt/Family Agrees to Plan: Yes Safety Risks/Education Teaching Recipient: Patient Teaching Methods: Discussion Response to Teaching: Verbalize Understanding Education Topics Provided: Safety within his room and communication of wants/needs Time Speech Therapy Time In: 14:00 Speech Therapy Time Out: 14:15 Total Billed Time: 15 Billed Treatment Time 1, SPSNDCOMP GEOVANNY Penn Feb 11, 2019 14:51 POS
[2019-02-11] MEDS: inSUlin ASPART (NovoLOG) 1 UNIT/0.01 ML (CHARGE PER UNIT) SC SCH ×2 (16:39→20:41)
[2019-02-11] MEDS: ENOXAPARIN 40 MG/0.4 ML (LOVENOX) SYR SC SCH (16:39)
[2019-02-11] MEDS ORDERED: SODIUM CHLORIDE FOR INHALATION IH SCH (17:00)
[2019-02-11] MEDS ORDERED: ENOXAPARIN SODIUM 40 MG SQ SCH (17:00)
[2019-02-11] MEDS ORDERED: [UNRECOGNIZED DRUG - OTHER] IH SCH (17:00)
[2019-02-11 17:26] VITALS: BP 153/79
[2019-02-11] MEDS: ALPRAZolam 0.25 MG (XANAX) TAB PO PRN (18:06)
--- NOTE | 2019-02-11 19:59 | Consultation-Cardiology ---
HPI-Cardiology Cardiology Consultation: Date of Consultation 02/11/19 Time Seen by a Provider: 18:45 Date of Admission Attending Physician Sandra Villagomez DO Admitting Physician Neymar Degroot MD Consulting Physician RUSH ARITA MD, MA, FACP, FACC, FSCAI, CCDS Primary manager field services: Dr Gutiérrez HPI: Chief Complaint: CC: Shortness of breath HPI 63 yo man admitted by Dr Villagomez to her service after the pt was transferred from [facility] where he had been for chronic resp failure. He house chronic shortness of breath that has been much more marked in the recent past and has necessitated hospitalizations. He denies cp or palp or syncope. He has chronic, marked, bilateral leg swelling that remains unchanged in the recent past. He notes gen malaise, weakness, tiredness, and lack of stamina Review of Systems-Cardiology Review of Systems Constitutional: As described under HPI Eyes: No vision change Ears/Nose/Throat: No ear discharge, No nasal drainage, No recent hearing loss Respiratory: As described under HPI Cardiovascular: As described under HPI Gastrointestinal: No diarrhea, No nausea, No vomiting Genitourinary: No dysuria, No hematuria, No urine frequency changes Musculoskeletal: back pain (chronic); No joint pain Skin: No rash, No ulcerations Psychiatric/Neurological: No seizure, No focal weakness, No syncope Hematologic: No bleeding abnormalities RLG-Fyrprs-Pxiatn Hx Patient Social History Marrital Status: Employed/Student: unemployed Alcohol Use: Occasionally Uses Recreational Drug Use: No Smoking Status: Former Smoker Former smoker/When Quit: Mar 16, 2004 Type Used: Cigarettes Recent Foreign Travel: No Recent Infectious Disease Expo: No Hospitalization with Isolation: Denies Physical Abuse Screen: No Sexual Abuse: No Immunizations Up To Date Tetanus Booster (TDap): More than 5yrs Date of Pneumonia Vaccine: Jan 06, 2019 Date of Influenza Vaccine: Dec 28, 2018 Past Medical History PMH As described under Assessment. Family Medical History Family History: Diabetes mellitus 19 FATHER G8 BROTHER Hypertension G8 BROTHER Myocardial infarction 19 FATHER, Onset:50's - 60 Allergies and Home Medications Allergies Coded Allergies: NKANo Known Allergies (Verified Allergy, Unknown, 05/15/05) Home Medications Acetaminophen 650 Mg Tablet.er, 650 MG PO Q6H PRN for PAIN-MILD (1-4) OR TEMPATURE, (Reported) Amiodarone HCl 200 Mg Tablet, 200 MG PO BID, (Reported) HOLD FOR HR LESS THAN 55 Arformoterol Tartrate 15 Mcg/2 Ml Vial.neb, 15 MCG IH BID, (Reported) Ascorbic Acid 1,000 Mg Tablet, 2,000 MG PO DAILY, (Reported) Azithromycin 500 Mg Tablet, 500 MG PO MON,WED,FRI, (Reported) Budesonide 1 Mg/2 Ml Ampul.neb, 1 MG IH BID, (Reported) Buspirone HCl 10 Mg Tablet, 10 MG PO BID, (Reported) Enoxaparin Sodium 40 Mg/0.4 Ml Syringe, 40 MG SQ 1700, (Reported) Folic Acid 1 Mg Tablet, 2 MG PO DAILY, (Reported) Glucagon,Human Recombinant 1 Mg/Kit Soln, 1 MG IJ UD PRN for HYPOGLYCEMIA, (Reported) Guaifenesin 100 Mg/5 Ml Liquid, 6 ML PO BID, (Reported) Hydralazine HCl 25 Mg Tablet, 25 MG PO BID, (Reported) HOLD FOR SYSTOLIC BP LESS THAN 100 Insulin Lispro 100 Unit/1 Ml Vial, 100 UNIT SQ QIDACHS, (Reported) USE PER SLIDING SCALE: BG 70-140=0 UNITS 141-180=8 UNITS 181-220=10UNITS 221- 260=12 UNITS 261-300=14 UNITS 601-340=16 UNITS 341-380=18 UNITS 381-400=20 UNITS IF BG IS OVER 400 NOTIFY PROVIER Ipratropium/Albuterol Sulfate 3 Ml Ampul.neb, 3 ML NEB Q6H PRN for SHORTNESS OF BREATH, (Reported) Lactobacillus Acidophilus 1 Each Capsule, 1 EACH PO BID, (Reported) Methylprednisolone Sod Succ/Pf 40 Mg/1 Ml Vial, 20 MG IJ Q12H, (Reported) Metoprolol Tartrate 100 Mg Tablet, 100 MG PO BID, (Reported) Multivitamin 1 Each Tablet, 1 EACH PO DAILY, (Reported) Ondansetron 4 Mg Tab.rapdis, 4 MG PO Q6H PRN for NAUSEA/VOMITING-1ST LINE, (Reported) Pantoprazole Sodium 40 Mg Tablet.dr, 40 MG PO DAILY, (Reported) Prednisone 20 Mg Tab, 20 MG PO DAILY, (Reported) Roflumilast 500 Mcg Tablet, 500 MCG PO DAILY, (Reported) Sildenafil Citrate 20 Mg Tablet, 20 MG PO TID, (Reported) HOLD FOR SBP LESS THAN 110 Sodium Chloride For Inhalation 4 Ml Vial.neb, 4 ML IH QID, (Reported) Theophylline Anhydrous 100 Mg Tab.er.12h, 100 MG PO DAILY, (Reported) Patient Home Medication List Home Medication List Reviewed: Yes Physical Exam-Cardiology Physical Exam Vital Signs/I&O 02/11/19 02/11/19 02/11/19 02/11/19 10:59 13:14 13:39 17:26 Temp 36.9 36.9 37.1 Pulse 118 118 115 Resp 22 22 20 B/P (MAP) 120/72 120/72 (88) 153/79 (103) Pulse Ox 91 91 94 O2 Delivery Nasal Cannula Nasal Cannula Nasal Cannula Nasal Cannula O2 Flow Rate 2.00 2.00 2.00 2.00 2.00 Capillary Refill : Constitutional: AAO x 3, well-developed, well-nourished, other (obese) HEENT: EOMI, hearing is well preserved; No xanthelasmas are seen Neck: carotid pulses are 2 + bilaterally, with good upstrokes Respiratory: No accessory muscle use; other (fair air entry, diminished at the bases, prolonged exp phase) Cardiovascular: regular rate-rhythm, S1 and S2, systolic murmur (2/6 PARRIS at card base) Gastrointestinal: No tender; soft; No guarding, No rebound; audible bowel sounds Extremities: No clubbing, No cyanosis; significant edema (marked, bilateral, pitting edema of the legs) Neurologic/Psychiatric: oriented x 3, other (moves all limbs equally) Skin: No rash, No ulcerations Data Review Labs Laboratory Tests 02/11/19 12:06: Glucometer 234H 02/11/19 15:17: Glucometer 251H A/P-Cardiology Assessment/Admission Diagnosis Type 2 repiratory failure in Dec 2018, multifactorial (see below) Chronic diastolic CHF PAF w/ RVR, currently controlled Pulmonary issues: obesity-hypoventilation with cor pulmonale, ac exac of COPD due to pneumonia Echo of 01/11/19 (Dr Gutiérrez): LVEF 55-65%, left atrial dilatation, pulmonary hypertension with PA pressure 50-60 mmHg Marked, chronic leg edema with intermittent cellulitis CKD 3 and episodes of ac renal insuff due to diuretic therapy Coronary artery disease, cath of 2014 showed coronary ectasia with slow flow, no significant obstructive disease Hyperlipidemia, by history Diabetes mellitus II Discussion and Recomendations * Complex management * Continue current regimen * Monitor labs * I have discussed his CV issues with him previously and today Clinical Quality Measures DVT/VTE Risk/Contraindication: Risk Factor Score Per Nursin RFS Level Per Nursing on Admit: 4+=Very High RUSH ARITA MD FACP FAC CCDS Feb 11, 2019 19:59 POS
[2019-02-11] MEDS ORDERED: NON-FORMULARY MEDICATION 1 EA EA (Buspirone HCl 10 MG) PO SCH (21:00)
[2019-02-11] MEDS ORDERED: BUDESONIDE 1 MG IH SCH (21:00)
[2019-02-11] MEDS ORDERED: METOPROLOL TARTRATE 100 MG PO SCH (21:00)
[2019-02-11] MEDS ORDERED: NON-FORMULARY MEDICATION 1 EA EA (Sildenafil Citrate (Sildenafil) 20 MG) PO SCH (21:00)
[2019-02-11] MEDS ORDERED: LACTOBACILLUS ACIDOPHILUS E PO SCH (21:00)
[2019-02-11] MEDS ORDERED: NON-FORMULARY MEDICATION 1 EA EA (Hydralazine HCl 25 MG) PO SCH (21:00)
[2019-02-11] MEDS ORDERED: ARFORMOTEROL 15 MCG/2 ML (BROVANA) INH SOLUTIION IH SCH (21:00)
[2019-02-11] MEDS: SILDENAFIL 20 MG (REVATIO) TAB NON-FORMULARY PO SCH (21:23)
[2019-02-11] MEDS: LACTOBACILLUS ACIDOPHILUS (PROBIOTIC) CAPSULE PO SCH (21:23)
[2019-02-11] MEDS: AMIODARONE 200 MG (CORDARONE) TAB PO SCH (21:23)
[2019-02-11] MEDS: meTOprolol TARTRATE 50 MG (LOPRESSOR) TAB PO SCH (21:23)
[2019-02-11] MEDS: hydrALAZINE (APRESOLINE) 25 MG TAB PO SCH (21:24)
[2019-02-11] MEDS: busPIRone 10 MG (BUSPAR) TAB PO SCH (21:24)
[2019-02-11] MEDS: RT-BUDESONIDE NEBS 0.5 MG/2ML (PULMICORT) AMP INH SCH (22:22)
[2019-02-11] MEDS: methylPREDNISolone 40 MG/ML (Solu-MEDROL) VIAL IV SCH (23:34)
[2019-02-12] MEDS: ENOXAPARIN 40 MG/0.4 ML (LOVENOX) SYR SC SCH ×2 (05:13→17:33)
[2019-02-12] MEDS: MULTIVIT W/MINERALS TAB (THERAGRAN M) PO SCH (05:14)
[2019-02-12] MEDS: inSUlin ASPART (NovoLOG) 1 UNIT/0.01 ML (CHARGE PER UNIT) SC SCH ×4 (05:21→20:43)
[2019-02-12 05:47] LABS: BASOPHILS % (AUTO) 0 % (0-10); EOSINOPHILS % (AUTO) 1 % (0-10); HEMATOCRIT 29 % (40-54); HEMOGLOBIN 8.8 G/DL (13.3-17.7); LYMPHOCYTES # (AUTO) 0.6 X 10^3 (1.0-4.0); LYMPHOCYTES % (AUTO) 12 % (12-44); MEAN CORPUSCULAR HEMOGLOBIN 29 PG (25-34); MEAN CORPUSCULAR HGB CONC 30 G/DL (32-36); MEAN CORPUSCULAR VOLUME 96 FL (80-99); MEAN PLATELET VOLUME 9.8 FL (7.4-10.4); MONOCYTES # (AUTO) 0.2 X 10^3 (0.0-1.0); MONOCYTES % (AUTO) 3 % (0-12); NEUTROPHILS # (AUTO) 4.2 X 10^3 (1.8-7.8); NEUTROPHILS % (AUTO) 84 % (42-75); PLATELET COUNT 189 10^3/uL (130-400); RED CELL DISTRIBUTION WIDTH 19.1 % (10.0-14.5); WHITE BLOOD COUNT 4.9 10^3/uL (4.3-11.0)
[2019-02-12 06:02] VITALS: BP 160/89
[2019-02-12 06:12] LABS: ALBUMIN 3.5 GM/DL (3.2-4.5); BILIRUBIN,TOTAL 0.8 MG/DL (0.1-1.0); CALCIUM 9.1 MG/DL (8.5-10.1); CREATININE SERUM 1.72 MG/DL (0.60-1.30); MAGNESIUM 1.7 MG/DL (1.6-2.4); POTASSIUM 3.9 MMOL/L (3.6-5.0); TOTAL PROTEIN 6.3 GM/DL (6.4-8.2)
[2019-02-12] MEDS: RT-BUDESONIDE NEBS 0.5 MG/2ML (PULMICORT) AMP INH SCH (06:59)
--- NOTE | 2019-02-12 07:34 | Pulmonary Consultation ---
History of Present Illness History of Present Illness Date Seen by Provider: Feb 12, 2019 Time Seen by Provider: 07:29 Date of Admission History of Present Illness 63yo with hx of multiple hospitalizations, morbid obesity, severe oxygen dependent COPD was transferred here for inpt rehab from [facility] where he had been for chronic resp failure. He is requiring 3 liters NC. He has bilateral LE edema. I am consulted for pulmonary management. Allergies and Home Medications Allergies Coded Allergies: Shakeel Known Allergies (Verified Allergy, Unknown, 05/15/05) Home Medications Acetaminophen 650 Mg Tablet.er, 650 MG PO Q6H PRN for PAIN-MILD (1-4) OR TEMPATURE, (Reported) Alprazolam 0.25 Mg Tablet, 0.25 MG PO Q8H PRN for ANXIETY Prescribed by: YARIEL BUI on 02/22/19919 Amiodarone HCl 200 Mg Tablet, 200 MG PO BID, (Reported) HOLD FOR HR LESS THAN 55 Apixaban 5 Mg Tablet, 5 MG PO BID Prescribed by: YARIEL BUI on 02/22/19919 Arformoterol Tartrate 15 Mcg/2 Ml Vial.neb, 15 MCG IH BID, (Reported) Ascorbic Acid 1,000 Mg Tablet, 2,000 MG PO DAILY, (Reported) Azithromycin 500 Mg Tablet, 500 MG PO MON,WED,FRI, (Reported) Buspirone HCl 10 Mg Tablet, 10 MG PO BID Prescribed by: YARIEL BUI on 02/22/19919 Fluticasone/Salmeterol 12 Gm Hfa.aer.ad, 2 PUFF IH BID@08,20 Prescribed by: YARIEL BUI on 02/22/19919 Folic Acid 1 Mg Tablet, 2 MG PO DAILY, (Reported) Guaifenesin 100 Mg/5 Ml Liquid, 6 ML PO BID, (Reported) Hydralazine HCl 25 Mg Tablet, 25 MG PO BID, (Reported) HOLD FOR SYSTOLIC BP LESS THAN 100 Hydrocodone Bit/Acetaminophen 1 Tab Tab, 1 TAB PO Q4H PRN for PAIN-SEVERE (8-10) Prescribed by: YARIEL BUI on 02/22/19919 Insulin Lispro 100 Unit/1 Ml Vial, 100 UNIT SQ QIDACHS, (Reported) USE PER SLIDING SCALE: BG 70-140=0 UNITS 141-180=8 UNITS 181-220=10UNITS 221- 260=12 UNITS 261-300=14 UNITS 601-340=16 UNITS 341-380=18 UNITS 381-400=20 UNITS IF BG IS OVER 400 NOTIFY PROVIER Ipratropium/Albuterol Sulfate 3 Ml Ampul.neb, 3 ML NEB Q6H PRN for SHORTNESS OF BREATH, (Reported) Lactobacillus Acidophilus 1 Each Capsule, 1 EACH PO BID, (Reported) Metoprolol Tartrate 100 Mg Tablet, 100 MG PO BID, (Reported) Multivitamin 1 Each Tablet, 1 EACH PO DAILY, (Reported) Neomycin Chacko/Bacitrac Zn/Poly 28.3 Gm Oint...g., 0 GM TOP DAILY Prescribed by: YARIEL BUI on 02/22/19919 Nystatin 15 Gm Oint...g., 0 GM TOP BID PRN for RASH Prescribed by: YARIEL BUI on 02/22/19919 Ondansetron 4 Mg Tab.rapdis, 4 MG PO Q6H PRN for NAUSEA/VOMITING-1ST LINE, (Reported) Pantoprazole Sodium 40 Mg Tablet.dr, 40 MG PO DAILY, (Reported) Polyethylene Glycol 3350 17 Gm Powd.pack, 17 GM PO BID Prescribed by: YARIEL BUI on 02/22/19919 Prednisone 20 Mg Tab, 20 MG PO DAILY Prescribed by: YARIEL BUI on 02/22/19919 Sildenafil Citrate 20 Mg Tablet, 20 MG PO TID, (Reported) HOLD FOR SBP LESS THAN 110 Theophylline Anhydrous 100 Mg Tab.er.12h, 100 MG PO DAILY, (Reported) Tramadol HCl 50 Mg Tablet, 50 MG PO TID PRN for PAIN-MODERATE (5-7) Prescribed by: YARIEL BUI on 02/22/19919 Zinc Oxide 28 Gm Oint, 0 GM TOP TID PRN for DIAPER CHANGE Prescribed by: YARIEL BUI on 02/22/19919 Past Jhmsinh-Bjdflx-Dbavlm Hx Past Med/Social Hx: Reviewed Nursing Past Med/Soc Hx, Reviewed and Corrections made Patient Social History Alcohol Use: Occasionally Uses Number of Drinks Today: AA Alcohol Beverage of Choice: Beer Recreational Drug Use: No Smoking Status: Former Smoker Type Used: Cigarettes Former Smoker, Quit: Aug 15, 2005 Recent Foreign Travel: No Contact w/Someone Who Travel: No Recent Infectious Disease Expo: No Recent Hopitalizations: Yes (12/04/18-12/20/18 FOR PNEUMONIA/COPD/AFIB/LEG CELLULITIS/SEPSIS) Immunizations Up To Date Tetanus Booster (TDap): More than 5yrs Date of Pneumonia Vaccine: Jan 06, 2019 Date of Influenza Vaccine: Dec 28, 2018 Seasonal Allergies Seasonal Allergies: No Past Medical History Surgeries: Yes Abdominal, Cardiac Respiratory: Yes Pneumonia, COPD Currently Using CPAP: No Currently Using BIPAP: Yes ([facility]) Cardiac: Yes (CARDIAC CATH--NO INTERVENTION) Atrial Fibrillation, Chronic Edema/Swelling, High Cholesterol, Hypertension Neurological: Yes Neuropathy Reproductive Disorders: No Sexually Transmitted Disease: No Genitourinary: Yes Renal Failure Gastrointestinal: Yes Abdominal Hernia 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 0.0oz. 117.483000aa; 53.40 BMI Method:Stated Exam Exam Vital Signs Date Time Temp Pulse Resp B/P (MAP) Pulse Ox O2 Delivery O2 Flow Rate FiO2 02/12/19 06:59 94 Nasal Cannula 3.00 02/12/19 06:02 36.0 83 20 160/89 (112) 97 Nasal Cannula 2.00 02/12/19 02:29 95 Nasal Cannula 2.00 02/11/19 22:23 82 18 40.00 02/11/19 20:20 Nasal Cannula 2.00 02/11/19 17:26 37.1 115 20 153/79 (103) 94 Nasal Cannula 2.00 02/11/19 13:39 36.9 118 22 120/72 (88) 91 Nasal Cannula 2.00 2.00 02/11/19 13:14 Nasal Cannula 2.00 02/11/19 10:59 36.9 118 22 120/72 91 Nasal Cannula 2.00 I & O 02/12/19 07:00 Intake Total 850 ml Output Total 1025 ml Balance -175 ml Height & Weight Height: 5'11" Weight: 260lbs. 0.0oz. 117.839122bn; 53.40 BMI Method:Stated General Appearance: No Apparent Distress, WD/WN, Anxious, Chronically ill, Obese HEENT: PERRL/EOMI, Normal ENT Inspection, Pharynx Normal Neck: Full Range of Motion, Normal Inspection, Non Tender, Supple, Carotid Bruit Respiratory: Chest Non Tender, Lungs Clear, No Accessory Muscle Use, No Respiratory Distress, Decreased Breath Sounds Cardiovascular: Regular Rate, Rhythm, No Gallop, No JVD, No Murmur, Normal Peripheral Pulses Extremity: Normal Capillary Refill, Normal Inspection, Normal Range of Motion, Non Tender, No Calf Tenderness, No Pedal Edema, Pedal Edema Neurologic/Psychiatric: Alert, Oriented x3, No Motor/Sensory Deficits, Normal 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
[2019-02-12] MEDS: LACTOBACILLUS ACIDOPHILUS (PROBIOTIC) CAPSULE PO SCH ×2 (08:09→20:44)
[2019-02-12] MEDS: PANTOPRAZOLE 40 MG (PROTONIX) TAB PO SCH (08:10)
[2019-02-12] MEDS: ASCORBIC ACID (VIT C) 500 MG TABLET PO SCH (08:10)
[2019-02-12] MEDS: FOLIC ACID 1 MG TAB PO SCH (08:10)
[2019-02-12] MEDS: busPIRone 10 MG (BUSPAR) TAB PO SCH ×2 (08:10→20:44)
[2019-02-12 08:12] VITALS: BP 136/76
[2019-02-12] MEDS: hydrALAZINE (APRESOLINE) 25 MG TAB PO SCH ×2 (08:12→20:44)
[2019-02-12] MEDS: ALPRAZolam 0.25 MG (XANAX) TAB PO PRN ×2 (08:12→17:30)
[2019-02-12] MEDS: AMIODARONE 200 MG (CORDARONE) TAB PO SCH ×2 (08:12→20:43)
[2019-02-12] MEDS: meTOprolol TARTRATE 50 MG (LOPRESSOR) TAB PO SCH ×2 (08:12→20:43)
--- NOTE | 2019-02-12 08:12 | NUR ---
CALLED IN TO ROOM BY PATIENT. STATES THAT HE IS HAVING A "PANIC ATTACK". CALMING SUPPORT PROVIDED. ASSISTED TO EOB. BP 136/76, P 113, OXYGEN 96% ON 2L PER NC. PRN XANAX GIVEN PER PATIENT'S REQUEST. SEE EMAR FOR DETAILS. DR. SMITH IN ROOM TO SEE PATIENT. NEW ORDER FOR ABG, TELEMETRY, Q4 VITALS FOR 24 HOURS, DAILY CBC, BMP, MAGNESIUM, AND PHOSPHORUS, AND DC DALIRESP.
[2019-02-12] MEDS: POLYETHYLENE GLYCOL 17 GM (MIRALAX) PACK PO SCH ×2 (08:14→20:45)
[2019-02-12] MEDS: DOCUSATE SODIUM 100 MG (COLACE) CAP PO SCH ×2 (08:14→20:45)
[2019-02-12] MEDS: THEOPHYLLINE ER 400 MG TAB (THEO-24) PO SCH (08:15)
[2019-02-12] MEDS: SENNA W/DOCUSATE (SENOKOT S) TABLET PO SCH ×2 (08:15→21:59)
[2019-02-12] MEDS: SILDENAFIL 20 MG (REVATIO) TAB NON-FORMULARY PO SCH ×3 (08:15→20:44)
[2019-02-12] MEDS: methylPREDNISolone 40 MG/ML (Solu-MEDROL) VIAL IV SCH ×2 (08:25→20:45)
--- NOTE | 2019-02-12 08:42 | Physical Therapy Daily Note ---
PT Daily Note-Current Subjective Pt agreeable to PT session. States not feeling so good today. Nsg states earlier this morning while pt was in bed, he had a lot of anxiety and was given Xanax, calmed down quite a bit. Pain Numeric Pain Scale: 9 (BLE's knees to ankle) Comment: lower legs and feet Appearance Upon arrival, pt sitting up in w/c, nsg present. At end of session, per pt r equest, sitting up in w/c with call light, phone and bedside table within reach Mental Status Patient Orientation: Person, Place, Time, Eyes Open, Situation Attachments: Saline Lock, Oxygen (2L), [place] Catheter Transfers SCALE: Activities may be completed with or without assistive devices. 1-Sezuqjsvku-ciripru completes the activity by him/herself with no assistance from a helper. 5-Set-up or Clean-up Assistance-helper sets up or cleans up; patient completes activity. [place] assists only prior to or following the activity. 4-Supervision or Touching Assistance-helper provides verbal cues and/or touching/steadying and/or contact guard assistance as patient completes activity. Assistance may be provided throughout the activity or intermittently. 3-Partial/Moderate Assistance-helper does LESS THAN HALF the effort. [place] lifts, holds or supports trunk or limbs, but provides less than half the effort. 2-Substantial/Maximal Assistance-helper does MORE THAN HALF the effort. [place] lifts or holds trunk or limbs and provides more than half the effort. 2-Zkvmscayd-zuznlp does ALL the effort. Patient does none of the effort to complete the activity. Or, the assistance of 2 or more helpers is required for the patient to complete the activity. If activity was not attempted, code reason: 7-Patient Refused. 9-Not Applicable-not attempted and the patient did not perform the activity before the current illness, exacerbation or injury. 10-Not Attempted due to Environmental Limitations-(lack of equipment, weather restraints, etc.). 88-Not Attempted due to Medical Conditions or Safety Concerns. Weight Bearing Full Weight Bearing Full Weight Bearing Wheelchair Training Does the Pt Use a Wheelchair?: Yes Wheel 50 ft with 2 turns (QC): 4 Type of Wheelchair: Manual 100' x2, slow with several stopping rest breaks, following inst for breathing techniques; path deviation, occasionally running into door jam, fatigue and SOA Exercises Seated Therapy Exercises: Ankle pumps (knees extended with 2# ankle wts, BLE's simultaneously x13, x15, x10), Long arc quads (BLE simultatneously 10 x3 with 2# ankle wts), Hip flexion (2# ankle wts, may x10 x3), Hamstring Curls (20), Hip abd/add (2# ankle wts, knees extended BLE's simultaneously x10 x3 (c/o pain with catheter, nsg notified)) Treatments education, safety, strength, activity tolerance, breathing techniques, functional mobility, w/c mobility Assessment Current Status: Fair Progress fatigues easily/quickly requiring several rest breaks throughout tx session. PT Short Term Goals Short Term Goals Time Frame: Feb 18, 2019 Roll Left & Right: 4 (SBA) Sit to lyin (Demario) Lying to sitting on side of be: 3 Sit to stand: 2 (maxA) Chair/khz-on-jvxbb transfer: 2 (maxA) PT Care Home Goals Care Home Goals PT Glassware Finisher Goals Time Frame: Mar 04, 2019 Roll Left & Right (QC): 6 Sit to Lying (QC): 4 (SBA) Lying-Sitting on Side/Bed(QC): 4 (SBA) Sit to Stand (QC): 3 (Demario) Chair/Meg-rt-Hiwog Xfer(QC): 3 (Demario) Toilet Transfer (QC): 3 (Demario) Car Transfer (QC): 3 (Demario) Does the Patient Walk: No and Walking Goal IS indicated Walk 10 feet (QC): 3 (Demario) Walk 50ft with 2 Turns (QC): 3 (Demario) Walk 150 ft (QC): 88 Walking 10ft on Uneven Surface: 88 1 Step (curb) (QC): 3 (modA) 4 Steps (QC): 88 12 Steps (QC): 88 Picking up an Object (QC): 88 Does the Pt use WC or Scooter?: Yes Wheel 50 feet with 2 turns (QC: 6 Type: Manual Wheel 150 feet: 6 Type: Manual PT Plan Treatment/Plan Treatment Plan: Continue Plan of Care Treatment Plan: Bed Mobility, Concurrent Therapy, Education, Functional Activity Johanna, Functional Strength, Group Therapy, Gait, Safety, Therapeutic Exercise, Transfers Treatment Duration: Mar 04, 2019 Frequency: At least 5 of 7 days/Wk (IRF) Estimated Hrs Per Day: 1.5 hours per day Patient and/or Family Agrees t: Yes Safety Risks/Education Patient Education: W/C Management, Safety Issues Teaching Recipient: Patient Teaching Methods: Discussion Response to Teaching: Verbalize Understanding Time/GCodes Time In: 827 Time Out: 859 Total Billed Treatment Time: 32 Total Billed Treatment 1 visit, WC x1 unit, EX x1 unit ERIKA FARRAR RADIOISOTOPE PRODUCTION OPERATOR Feb 12, 2019 08:42 POS
[2019-02-12] MEDS ORDERED: ROFLUMILAST 500 MCG TAB (DALIRESP) PO SCH (09:00)
[2019-02-12] MEDS ORDERED: THEOPHYLLINE ANHYDROUS 100 MG PO SCH (09:00)
[2019-02-12] MEDS ORDERED: NON-FORMULARY MEDICATION 1 EA EA (Multivitamin (Multiple Vitamins) 1 EACH) PO SCH (09:00)
[2019-02-12] MEDS ORDERED: ASCORBIC ACID 2000 MG PO SCH (09:00)
[2019-02-12] MEDS: RT-ALBUTEROL/IPRATROPIUM 3 ML (DUONEB) VIAL INH SCH ×2 (10:13→14:08)
[2019-02-12 10:16] LABS: ABG BASE EXCESS 15.7 MMOL/L (-2.5-2.5); ABG OXYGEN SATURATION 97 % (94-100); ABG PCO2 59 MMHG (35-45); ABG PH 7.45 (7.37-7.43); ABG PO2 81 MMHG (79-93); ABG TCO2 42.6 MMOL/L (21.0-31.0)
[2019-02-12 10:18] LABS: ALLENS TEST POSITIVE; INSPIRED O2 2 L; VENTILATOR NO
[2019-02-12 10:19] LABS: PATIENT TEMP 36.9
[2019-02-12] MEDS: RT-ADVAIR HFA 115/21 MCG PER PUFF IH SCH (10:20)
--- NOTE | 2019-02-12 10:27 | NUR ---
DR. SMITH NOTIFIED OF CRITICAL HC03- 41. ALSO, PH- 7.45, C02- 59, TOTAL CO2- 42.6, BASE EXCESS- 15.7. NO NEW ORDERS REC'D.
[2019-02-12 11:52] VITALS: BP 131/75
--- NOTE | 2019-02-12 12:31 | Individualized Plan of Care ---
Individualized Plan of Care Rehab Nursing IPOC Order Admission Date Feb 11, 2019 at 10:04 Current Orders Orders Admission Order(Inpt,Obs,Sdc) (02/10/19 10:56) Vital Signs: Per Unit Policy ( 08,16,00 (02/10/19 10:56) Reji Tolliver 09,21 (02/10/19 10:56) Sequential Compression Device Q4H (02/10/19 10:56) Meter Mechanic-Inpt Rehab Con (02/10/19 10:56) Rehab Nursing Orders-Ipoc (02/10/19 10:56) Physical Therapy Rehab Orders (02/10/19 10:56) Occupational Therapy Rehab Ord (02/10/19 10:56) Speech Therapy Rehab Orders (02/10/19 10:56) Accucheck Achs ACHS (02/10/19 10:56) Precautions (Aru) (02/10/19 10:56) Rehab-Intensity Of Therapy (02/10/19 10:56) Initiate Admission Nursing Pro .admission (02/10/19 10:56) Acetaminophen Tablet (Tylenol Tablet) (02/10/19 11:00) Alprazolam Tablet (Xanax Tablet) (02/10/19 11:00) Calcium Carbonate Chew Tablet (Antacid C (02/10/19 11:00) Diphenhydramine Tablet (Benadryl Tablet) (02/10/19 11:00) Docusate Sodium Capsule (Colace Capsule) (02/10/19 21:00) Docusate Sodium Capsule (Colace Capsule) (02/10/19 11:00) Bisacodyl Suppository (Dulcolax Supposit (02/10/19 11:00) Lactulose Oral Solution (Enulose Oral So (02/10/19 11:00) Na Phos/Na Biphos Enema (Fleet Enema Irwin (02/10/19 11:00) Guaifenesin/Codeine Syrup (Robitussin Ac (02/10/19 11:00) Hydrocodone/Apap 5/325 Tablet (Lortab 5 (02/10/19 11:00) Loperamide Tablet (Imodium Tablet) (02/10/19 11:00) Melatonin Tablet (Melatonin Tablet) (02/10/19 11:00) Polyethylene Glycol Powder Pkt (Miralax (02/10/19 21:00) Ondansetron Injection (Zofran Injectio (02/10/19 11:00) Ondansetron Oral Dissolve Tab (Zofran (02/10/19 11:00) Senna S Tablet (Senokot S Tablet) (02/10/19 21:00) Tramadol Tablet (Ultram Tablet) (02/10/19 11:00) Initiate Admission Nursing Pro .admission (02/10/19 10:56) Admission Arrival Bed Request (02/11/19 10:00) Nursing Communication (Order) (02/11/19 12:06) Cbc With Automated Diff (02/12/19 06:00) Comprehensive Metabolic Panel (02/12/19 06:00) Consult Pulmonology (02/11/19 12:18) Consult Cardiology (02/11/19 12:18) Cho 60g/M 3snack (16-2000 Bob) (02/11/19 Lunch) Amiodarone Tablet (Cordarone Tablet) (02/11/19 21:00) Arformoterol Inhalation Soln (Brovana In (02/11/19 21:00) Folic Acid Tablet (Folic Acid Tablet) (02/12/19 09:00) Albuterol/Ipra Inhalation Soln (Duoneb I (02/11/19 14:00) Ondansetron Oral Dissolve Tab (Zofran (02/11/19 14:00) Pantoprazole Tablet (Protonix Tablet) (02/12/19 09:00) Roflumilast Tablet (Daliresp Tablet) (02/12/19 09:00) (Nf) Ascorbic Acid (Vitamin C) (02/12/19 09:00) (Nf) Azithromycin (02/11/19 14:00) (Nf) Budesonide (Pulmicort) (02/11/19 21:00) (Nf) Buspirone Hcl (02/11/19 21:00) (Nf) Enoxaparin Sodium (02/11/19 17:00) (Nf) Hydralazine Hcl (02/11/19 21:00) (Nf) Insulin Lispro (Humalog) (02/11/19 14:00) (Nf) Lactobacillus Acidophilus (Acidophi (02/11/19 21:00) (Nf) Methylprednisolone Sod Succ/Pf (Ledy (02/11/19 14:00) (Nf) Metoprolol Tartrate (Lopressor) (02/11/19 21:00) (Nf) Multivitamin (Multiple Vitamins) (02/12/19 09:00) (Nf) Sildenafil Citrate (Sildenafil) (02/11/19 21:00) (Nf) Sodium Chloride For Inhalation (Neb (02/11/19 17:00) (Nf) Theophylline Anhydrous (02/12/19 09:00) Guaifenesin Sf Syrup (Robitussin Sf Syru (02/11/19 14:00) Ascorbic Acid Tablet (Vitamin C Tablet) (02/12/19 08:00) Lactobacillus Acidophilus Cap (Acidophil (02/11/19 21:00) Metoprolol Tartrate (Ir) Tab (Lopressor (02/11/19 21:00) Therapeutic Multivitamin Tab (Vitamins, (02/12/19 07:00) Sildenafil Tablet (Non-Form) (Revatio Ta (02/11/19 21:00) Hydralazine Tablet (Apresoline Tablet) (02/11/19 21:00) Patient Visit (02/11/19 ) Pt Eval Moderate Complexity (02/11/19 ) Functional Activities, Ea 15 (02/11/19 ) Wheelchair Mgmt/Propulsn 15min (02/11/19 ) Budesonide Inhalation Solution (Pulmicor (02/11/19 21:00) Buspirone Tablet (Buspar Tablet) (02/11/19 21:00) Sodium Chl Inhalation (Rt-Sodium Chl Inh (02/11/19 15:00) Enoxaparin Injection (Lovenox Injection) (02/11/19 17:00) Methylprednisolone Sod Succ (Solu-Medrol (02/11/19 21:00) Azithromycin Tablet (Zithromax Tablet) (02/14/19 09:00) Insulin Aspart (Novolog) (Novolog (Charg (02/11/19 16:00) Patient Visit (02/11/19 ) Speech Sound Lang Comp (02/11/19 ) Theophylline Er (Non-Form) (Armando-24 (Non (02/12/19 09:00) Magnesium (02/12/19 05:00) Ekg Tracing (02/12/19 06:00) Rt Request For Service (02/12/19 06:59) Albuterol/Ipra Inhalation Soln (Duoneb I (02/12/19 11:00) Svn Small Volume Nebulizer (02/12/19 08:00) Fluticasone/Salmeterol Common (Advair 11 (02/12/19 08:00) Mdi Treatment (02/12/19 08:00) Bipap (Bilevel) Set Up (02/12/19 08:58) Telemetry (02/12/19 09:40) Telemetry Nursing Assessment ( (02/12/19 09:40) Arterial Blood Gas (02/12/19 10:07) Arterial Blood Draw (02/12/19 09:41) Cbc No Diff (02/13/19 06:00) Basic Metabolic Panel (02/13/19 06:00) Magnesium (02/13/19 06:00) Phosphorus (02/13/19 06:00) Vital Signs: Every 4 Hours (Or Q4HR (02/12/19 12:00) Arterial Blood Draw (02/12/19 ) Patient Visit (02/12/19 ) Wheelchair Mgmt/Propulsn 15min (02/12/19 ) Exercise Therap, Ea 15 Min (02/12/19 ) Rehab Nursing Orders: Ongoing Assess. of Cognitive Status, Ongoing Assess. of Function Status, Bladder Management, Bladder Scan, Bladder Training, Bowel Management, Bowel Training, Disease Management & Educaiton, DVT Prophylaxis, Fall Prevention, Fluid/Electrolyte/Nutrition Mgmt, Infection Prevention, Me dication Management & Education, Management of Risks & Complications, Management of Skin Intergrity, Nutrition Management, Pain Management, Patient/Family Support, Safety Management Intensity of Therapy to be met Patient to be seen: Min.3h per day/5 of 7d PT IPOC Problem List: Activity Tolerance, Functional Strength, Safety, Balance, Gait, Transfer, Bed Mobility, ROM Treatment Plan: Continue Plan of Care Bed Mobility, Concurrent Therapy, Education, Functional Activity Johanna, Functional Strength, Group Therapy, Gait, Safety, Therapeutic Exercise, Transfers Treatment Duration: Mar 04, 2019 Frequency: At least 5 of 7 days/Wk (IRF) Estimated Hrs Per Day: 1.5 hours per day OT IPOC Problems: Decreased Activ Tolerance, Decreased UE Strength, Dependent Transfers, Impaired Bed Mobility, Impaired Funct Balance, Impaired I ADL's, Imp aired Self-Care Skills OT Treatment, Training and Edu: Yes Plan of Care: ADL Retraining, Caregiver Training, Functional Mobility, Group Exercise/Act as Ind, UE Funct Exercise/Act Treatment Duration: Mar 11, 2019 Frequency: At least 5 of 7 days/Wk (IRF) Estimated Hrs Per Day: 1.[address] IPOC Speech Therapy Treatment Plan: Discontinue ST Treatment Duration: Feb 11, 2019 Frequency: 1 time per week Estimated Hrs Per Day: .25 hour per day Meter Mechanic/Case Mgmt Meter Mechanic/Case Managemen: Discharge Planning Dietitian/Roller Embosser Dietitian/Roller Embosser to monitor nutritional status and make changes and/or rec ommendations as needed and work with speech pathology on dietary upgrades as the occur. Physician IPOC Medical Issues being managed closely and that require the 24 hour availability of a physician: Severe anasarca and volume overload will require close monitoring of Pulmo and Cards to optimize med management in order to return home Medical Issues: Bowel/Bladder Function, DVT Prophylaxis, Falls Precautions, Fluid/Electrolyte/Nutrition Balance, Infection Protection, Pain Management Brief Synthesis of Preadmission Screen, Post-Admission Evaluation, and Therapy Evaluations: PT will focus on regaining strengthening and walking with walker OT will help regain independence of ADL's in order to live at home at [place] Medical Prognosis: Good Anticipated Length of Stay: 10 days YARIEL BUI DO Feb 12, 2019 12:31 POS
--- NOTE | 2019-02-12 12:31 | PM&R Progress Note ---
Subjective HPI/CC On Admission Date Seen by Provider: Feb 12, 2019 Time Seen by Provider: 11:15 Subjective/Events-last exam Will keep bryson in until Thursday due to volume overload DNR is requested Panic attacks noted at times Dr Contreras placed him on Tely and the telemetry revealed AF w/mild RVR Daily labs are ordered by Dr Contreras along with Mg ABG reviewed 7.45/59/81 HgB 8.8 Creatinine is 1.7 baseline DM reviewed Conferred with RN Checked meds and labs Review of Systems General: Fatigue Cardiovascular: Palpitations, Edema Objective Exam Vital Signs Vital Signs Date Time Temp Pulse Resp B/P (MAP) Pulse Ox O2 Delivery O2 Flow Rate FiO2 02/12/19 15:13 37.2 99 20 124/71 (88) 95 Nasal Cannula 2.00 Capillary Refill : General Appearance: No Apparent Distress, WD/WN, Anxious, Chronically ill, Obese HEENT: PERRL/EOMI, Normal ENT Inspection, Pharynx Normal Neck: Full Range of Motion, Normal Inspection, Non Tender, Supple, Carotid Bruit Respiratory: Chest Non Tender, Lungs Clear, No Accessory Muscle Use, No Respiratory Distress, Decreased Breath Sounds Cardiovascular: Regular Rate, Rhythm, No Gallop, No JVD, No Murmur, Normal Peripheral Pulses Gastrointestinal: Normal Bowel Sounds, No Organomegaly, No Pulsatile Mass, Non Tender, Soft Back: Normal Inspection, No CVA Tenderness, No Vertebral Tenderness Extremity: Normal Capillary Refill, Normal Inspection, Normal Range of Motion, Non Tender, No Calf Tenderness, No Pedal Edema, Pedal Edema Neurologic/Psychiatric: Alert, Oriented x3, No Motor/Sensory Deficits, Normal 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 FIM Transfers Therapy Code Descriptions/Definitions Functional [place] Measure: 0=Not Assessed/NA 4=Minimal Assistance 1=Total Assistance 5=Supervision or Setup 2=Maximal Assistance 6=Modified [place] 3=Moderate Assistance 7=Complete IndependenceSCALE: Activities may be completed with or without assistive devices. 8-Yisofcyqyk-uvpmudw completes the activity by him/herself with no assistance from a helper. 5-Set-up or Clean-up Assistance-helper sets up or cleans up; patient completes activity. [place] assists only prior to or following the activity. 4-Supervision or Touching Assistance-helper provides verbal cues and/or touching/steadying and/or contact guard assistance as patient completes activity. Assistance may be provided throughout the activity or intermittently. 3-Partial/Moderate Assistance-helper does LESS THAN HALF the effort. [place] li fts, holds or supports trunk or limbs, but provides less than half the effort. 2-Substantial/Maximal Assistance-helper does MORE THAN HALF the effort. [place] lifts or holds trunk or limbs and provides more than half the effort. 2-Dgiehawro-hxxwkq does ALL the effort. Patient does none of the effort to complete the activity. Or, the assistance of 2 or more helpers is required for the patient to complete the activity. If activity was not attempted, code reason: 7-Patient Refused. 9-Not Applicable-not attempted and the patient did not perform the activity before the current illness, exacerbation or injury. 10-Not Attempted due to Environmental Limitations-(lack of equipment, weather restraints, etc.). 88-Not Attempted due to Medical Conditions or Safety Concerns. Roll Left to Right (QC): 3 (Demario) Sit to Lying (QC): 3 (modA) Sit to Stand (QC): 1 (sit to stand machine) Chair/Azm-ej-Qpven Xfer(QC): 1 (sit to stand machine) Car Transfer (QC): 88 Gait Training Does the Patient Walk?: No and Walking Goal IS indicated Walk 10 feet (QC): 88 Walk 50 ft with 2 Turns(QC): 88 Walk 150 ft (QC): 88 Walking 10ft/uneven surface-QC: 88 Wheelchair Training Does the Pt Use a Wheelchair?: Yes Distance: 100x2 Wheel 50 ft with 2 turns (QC): 4 Wheel 150 ft (QC): 88 Type of Wheelchair: Manual Stair Training 1 Step (curb) (QC): 88 4 Steps (QC): 88 12 Steps (QC): 88 Balance Picking up an Object (QC): 88 ADL-Treatment Eating (QC): 6 (Pt reports having no difficulty opening containers and bringing food to his mouth.) Oral Hygiene (QC): 5 (pt completed task with set up assistance seated in w/c at sink) Shower/Bathe Self (QC): 1 (Pt able to wash BUE, chest, abdomen, periarea, and BLE upper legs. Pt required assistance cleaning BLE lower legs and feet, and buttocks. To wash buttocks, sit to stand lift was required causing dependent score.) Upper Body Dressing (QC): 3 (Pt able to kemar/doff hospital gown from arms, required assistance with tying/untying gown. ) Lower Body Dressing (QC): 1 (Sit to stand lift required in order to kemar brief. Pt unable to assist with donning brief.) On/Off Footwear (QC): 1 (Pt unable to reach feet in order to don/doff footwear. OT assisted with all parts of task. 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 Chronic anxiety PAF Anasarca CHF COPD OHS DM Plan: Monitor closely Monitor AF Appreciate Josseline Contreras and Miguel (1) Myopathy Status: Acute (2) Atrial fibrillation (3) Anasarca (4) Fair prognosis (5) Debility (6) Bryson catheter in place (7) Acute on chronic respiratory failure with hypoxia Status: Acute (8) LUIGI treated with BiPAP Status: Chronic (9) CKD (chronic kidney disease) Status: Chronic (10) COPD (chronic obstructive pulmonary disease) (11) Diabetes mellitus with hyperglycemia Status: Chronic (12) Obesity hypoventilation syndrome Status: Chronic (13) Pulmonary HTN Status: Chronic (14) Pulmonary edema Status: Acute (15) CAD (coronary artery disease) Status: Chronic (16) DVT prophylaxis Status: Acute (17) Lymphedema (18) Hypoxia Status: Acute (19) Respiratory insufficiency (20) Hypercapnia Status: Acute (21) Obesity Status: Acute (22) HTN (hypertension) Status: Acute YARIEL BUI DO Feb 12, 2019 12:31 POS
--- NOTE | 2019-02-12 14:36 | Progress Note - Cardiology ---
Cardiology SOAP Progress Note Subjective: Shortness of breath as before Leg swelling also unchanged No cp or palp or syncope Chronic gen malaise and weakness Objective: I&O/Vital Signs 02/12/19 02/12/19 02/12/19 02/12/19 06:02 06:59 08:12 08:15 Temp 36.0 Pulse 83 113 Resp 20 20 B/P (MAP) 160/89 (112) 136/76 (96) Pulse Ox 97 94 96 O2 Delivery Nasal Cannula Nasal Cannula Nasal Cannula Nasal Cannula O2 Flow Rate 2.00 3.00 2.00 2.00 02/12/19 02/12/19 02/12/19 02/12/19 10:14 10:21 10:23 11:52 Temp 36.7 Pulse 91 95 Resp 22 B/P (MAP) 131/75 (93) Pulse Ox 96 96 92 O2 Delivery Nasal Cannula Nasal Cannula O2 Flow Rate 2.00 2.00 02/12/19 14:09 Pulse Ox 95 O2 Delivery Nasal Cannula O2 Flow Rate 2.00 02/12/19 00:00 Intake Total 450 ml Output Total 200 ml Balance 250 ml Weight (Pounds): 260 Weight (Ounces): 0.0 Weight (Calculated Kilograms): 117.502737 Constitutional: AAO x 3, well-developed, well-nourished, other (obese) Respiratory: No accessory muscle use; other (fair air entry, diminished at the bases, prolonged exp phase) Cardiovascular: regular rate-rhythm, S1 and S2, systolic murmur (2/6 PARRIS at card base) Gastrointestional: No tender; soft; No guarding, No rebound; audible bowel sounds Extremities: No clubbing, No cyanosis; significant edema (marked, bilateral, pitting edema of the legs) Neurologic/Psychiatric: oriented x 3, other (moves all limbs equally) Skin: No rash, No ulcerations Results/Procedures: Labs Laboratory Tests 02/11/19 15:17: Glucometer 251H 02/11/19 20:38: Glucometer 127H 02/12/19 05:17: Glucometer 263H 02/12/19 05:34: White Blood Count 4.9, Red Blood Count 3.05L, Hemoglobin 8.8L, Hematocrit 29L, Mean Corpuscular Volume 96, Mean Corpuscular Hemoglobin 29, Mean Corpuscular Hemoglobin Concent 30L, Red Cell Distribution Width 19.1H, Platelet Count 189, Mean Platelet Volume 9.8, Neutrophils (%) (Auto) 84H, Lymphocytes (%) (Auto) 12, Monocytes (%) (Auto) 3, Eosinophils (%) (Auto) 1, Basophils (%) (Auto) 0, Neutrophils # (Auto) 4.2, Lymphocytes # (Auto) 0.6L, Monocytes # (Auto) 0.2, Eosinophils # (Auto) 0.0, Basophils # (Auto) 0.0, Sodium Level 144, Potassium Level 3.9, Chloride Level 95L, Carbon Dioxide Level 33H, Anion Gap 16H, Blood Urea Nitrogen 39H, Creatinine 1.72H, Estimat Glomerular Filtration Rate 40, BUN/Creatinine Ratio 23, Glucose Level 248H, Calcium Level 9.1, Corrected Calcium 9.5, Magnesium Level 1.7, Total Bilirubin 0.8, Aspartate Amino Transf (AST/SGOT) 18, Alanine Aminotransferase (ALT/SGPT) 35, Alkaline Phosphatase 66, Total Protein 6.3L, Albumin 3.5 02/12/19 08:23: Glucometer 224H 02/12/19 10:07: Blood Gas Puncture Site LEFT RADIAL, Blood Gas Patient Temperature 36.9, Arterial Blood pH 7.45H, Arterial Blood Partial Pressure CO2 59H, Arterial Blood Partial Pressure O2 81, Arterial Blood HCO3 41*H, Arterial Blood Total CO2 42.6H , Arterial Blood Oxygen Saturation 97, Arterial Blood Base Excess 15.7H, Gurwinder Test POSITIVE, Blood Gas Ventilator Setting NO, Blood Gas Inspired Oxygen 2 L 02/12/19 11:04: Glucometer 220H Laboratory Tests 02/12/19 05:34 A/P: Assessment: Type 2 repiratory failure in Dec 2018, multifactorial (see below) Chronic diastolic CHF PAF w/ RVR, currently controlled Pulmonary issues: obesity-hypoventilation with cor pulmonale, ac exac of COPD due to pneumonia Echo of 01/11/19 (Dr Gutiérrez): LVEF 55-65%, left atrial dilatation, pulmonary hypertension with PA pressure 50-60 mmHg Marked, chronic leg edema with intermittent cellulitis CKD 3 and episodes of ac renal insuff due to diuretic therapy Coronary artery disease, cath of 2014 showed coronary ectasia with slow flow, no significant obstructive disease Hyperlipidemia, by history Diabetes mellitus II Plan: * Complex management due to multiple comorbidities that are outlined above * Continue current regimen * Monitor labs * I again discussed his CV issues with him RUSH ARITA MD FACP FAC CCDS Feb 12, 2019 14:36 POS
--- NOTE | 2019-02-12 15:01 | NUR ---
18 units SSI were drawn up, but, 14 units were given as ordered. Wasted the 4 units.
--- NOTE | 2019-02-12 15:03 | NUR ---
noted when transferring pt from recliner to w/c earlier w sit to stand, pt had been inct of bm on pad. Performed ovi/skin care, & new pad applied.
[2019-02-12 15:13] VITALS: BP 124/71
--- NOTE | 2019-02-12 17:36 | NUR ---
Xanax given for c/o, "I feel like I'm having a panic attack." Pt reports hands shaky, warm blanket applied over legs at pt request. Pt was heard saying, "I've got to get closer to the [facility]." Pt is watching [employer] football on tv. Asked him how they were doing ? Pt states, "they're losing." Pt related that may have gotten him worked up some. Pt states, "I'll try to relax."
[2019-02-12 19:03] VITALS: BP 134/77
[2019-02-12] MEDS: RT-SODIUM CHL INHALATION 3 ML VIAL IH SCH (21:00)
[2019-02-12 23:55] VITALS: BP 150/92
[2019-02-13] MEDS: RT-ALBUTEROL/IPRATROPIUM 3 ML (DUONEB) VIAL INH SCH ×4 (00:13→16:28)
[2019-02-13] MEDS: RT-SODIUM CHL INHALATION 3 ML VIAL IH SCH ×2 (00:13→00:15)
[2019-02-13] MEDS: RT-BUDESONIDE NEBS 0.5 MG/2ML (PULMICORT) AMP INH SCH ×2 (00:14→08:55)
[2019-02-13] MEDS: RT-ADVAIR HFA 115/21 MCG PER PUFF IH SCH ×2 (00:14→09:06)
[2019-02-13 04:15] VITALS: BP 151/88
[2019-02-13] MEDS: MULTIVIT W/MINERALS TAB (THERAGRAN M) PO SCH (05:19)
[2019-02-13] MEDS: ENOXAPARIN 40 MG/0.4 ML (LOVENOX) SYR SC SCH ×2 (05:19→17:05)
[2019-02-13] MEDS: inSUlin ASPART (NovoLOG) 1 UNIT/0.01 ML (CHARGE PER UNIT) SC SCH ×4 (06:15→20:53)
[2019-02-13 06:17] LABS: HEMOGLOBIN 8.4 G/DL (13.3-17.7); MEAN PLATELET VOLUME 10.6 FL (7.4-10.4); RED CELL DISTRIBUTION WIDTH 18.8 % (10.0-14.5); WHITE BLOOD COUNT 4.1 10^3/uL (4.3-11.0)
[2019-02-13 06:45] LABS: CALCIUM 8.5 MG/DL (8.5-10.1); CREATININE SERUM 1.63 MG/DL (0.60-1.30); MAGNESIUM 1.8 MG/DL (1.6-2.4); PHOSPHORUS 3.6 MG/DL (2.3-4.7); POTASSIUM 3.9 MMOL/L (3.6-5.0)
[2019-02-13 07:45] VITALS: BP 127/73
[2019-02-13] MEDS: PANTOPRAZOLE 40 MG (PROTONIX) TAB PO SCH (08:45)
[2019-02-13] MEDS: ASCORBIC ACID (VIT C) 500 MG TABLET PO SCH (08:45)
[2019-02-13] MEDS: FOLIC ACID 1 MG TAB PO SCH (08:45)
[2019-02-13] MEDS: meTOprolol TARTRATE 50 MG (LOPRESSOR) TAB PO SCH ×2 (08:45→20:54)
[2019-02-13] MEDS: methylPREDNISolone 40 MG/ML (Solu-MEDROL) VIAL IV SCH ×2 (08:46→09:17)
[2019-02-13] MEDS: ALPRAZolam 0.25 MG (XANAX) TAB PO PRN (08:46)
[2019-02-13] MEDS: busPIRone 10 MG (BUSPAR) TAB PO SCH ×2 (08:46→20:54)
[2019-02-13] MEDS: LACTOBACILLUS ACIDOPHILUS (PROBIOTIC) CAPSULE PO SCH ×2 (08:46→20:53)
[2019-02-13] MEDS: hydrALAZINE (APRESOLINE) 25 MG TAB PO SCH ×2 (08:46→20:53)
[2019-02-13] MEDS: SILDENAFIL 20 MG (REVATIO) TAB NON-FORMULARY PO SCH ×3 (08:49→20:53)
[2019-02-13] MEDS: THEOPHYLLINE ER 400 MG TAB (THEO-24) PO SCH (08:49)
[2019-02-13] MEDS: POLYETHYLENE GLYCOL 17 GM (MIRALAX) PACK PO SCH ×2 (08:49→20:54)
[2019-02-13] MEDS: DOCUSATE SODIUM 100 MG (COLACE) CAP PO SCH ×2 (08:49→20:54)
[2019-02-13] MEDS: SENNA W/DOCUSATE (SENOKOT S) TABLET PO SCH ×2 (08:50→20:54)
[2019-02-13] MEDS: AMIODARONE 200 MG (CORDARONE) TAB PO SCH ×2 (08:52→20:54)
--- NOTE | 2019-02-13 09:28 | NUR ---
IV LEAKING. DR. SMITH TO FLOOR AND OK TO CHANGE TO ORAL PREDNISONE- 40 MG PO DAILY. ALSO, MAY RESUME ROUTINE VITALS- 0600 AND 1800.
--- NOTE | 2019-02-13 09:33 | Pulmonary Progress Note ---
Subjective Time Seen by a Provider: 09:22 Subjective/Events-last exam Complains of tremors Sepsis Event Evaluation Height, Weight, BMI Height: 5'11" Weight: 260lbs. 0.0oz. 117.397666gi; 53.40 BMI Method:Stated Exam Exam Vital Signs Date Time Temp Pulse Resp B/P (MAP) Pulse Ox O2 Delivery O2 Flow Rate FiO2 02/13/19 09:26 Nasal Cannula 2.00 02/13/19 09:06 97 Nasal Cannula 3.00 02/13/19 08:56 97 Nasal Cannula 3.00 02/13/19 07:45 36.7 99 22 127/73 (91) 100 Nasal Cannula 2.00 02/13/19 07:00 99 02/13/19 04:15 36.2 80 20 151/88 (109) 98 Nasal Cannula 2.00 02/13/19 00:26 80 02/12/19 23:55 36.4 78 18 150/92 (111) 98 Nasal Cannula 2.00 02/12/19 21:47 Nasal Cannula 2.00 02/12/19 19:03 36.7 93 20 134/77 (96) 98 Nasal Cannula 2.00 02/12/19 18:45 78 02/12/19 17:55 101 22 95 Nasal Cannula 2.00 02/12/19 17:22 Nasal Cannula 2.00 02/12/19 15:13 37.2 99 20 124/71 (88) 95 Nasal Cannula 2.00 02/12/19 14:09 95 Nasal Cannula 2.00 02/12/19 13:00 82 02/12/19 11:52 36.7 95 22 131/75 (93) 92 02/12/19 10:23 91 02/12/19 10:21 96 Nasal Cannula 2.00 02/12/19 10:14 96 Nasal Cannula 2.00 I & O 02/13/19 07:00 Intake Total 740 ml Output Total 850 ml Balance -110 ml Height & Weight Height: 5'11" Weight: 260lbs. 0.0oz. 117.481360mm; 53.40 BMI Method:Stated General Appearance: No Apparent Distress, WD/WN, Anxious, Chronically ill, Obese HEENT: PERRL/EOMI, Normal ENT Inspection, Pharynx Normal Neck: Full Range of Motion, Normal Inspection, Non Tender, Supple, Carotid Bruit Respiratory: Chest Non Tender, Lungs Clear, No Accessory Muscle Use, No Respiratory Distress, Decreased Breath Sounds Cardiovascular: Regular Rate, Rhythm, No Gallop, No JVD, No Murmur, Normal Peripheral Pulses Extremity: Normal Capillary Refill, Normal Inspection, Normal Range of Motion, Non Tender, No Calf Tenderness, No Pedal Edema, Pedal Edema Neurologic/Psychiatric: Alert, Oriented x3, No Motor/Sensory Deficits, Normal 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
[2019-02-13] MEDS: predniSONE 20 MG TAB PO SCH (09:40)
--- NOTE | 2019-02-13 12:25 | NUR ---
DR. BUI TO FLOOR. INFORMED OF NO IV AND POOR VENOUS ACCESS. ORDER FOR PICC LINE IN AM.
--- NOTE | 2019-02-13 12:25 | PM&R Progress Note ---
Subjective HPI/CC On Admission Date Seen by Provider: Feb 13, 2019 Time Seen by Provider: 11:00 Subjective/Events-last exam Will keep bryson in until Thursday due to volume overload DNR has changed back to full code, very difficult to imagine if continues to decline the quality of life he would have if he does decompensate Panic attacks noted at times and shakes a lot all the time Dr Contreras placed him on Tely and the telemetry revealed AF w/mild RVR now improved control Daily labs are ordered by Dr Contreras along with Mg Looks a bit better today after his shower Lost IV so will order PICC line placement since he will certainly need an IV even if it is for IV diuresis in the near future BRANDEN wraps seem to be helping his anasarca DM reviewed Conferred with RN Checked meds and labs Review of Systems Pulmonary: Dyspnea Musculoskeletal: leg pain Objective Exam Vital Signs Vital Signs Date Time Temp Pulse Resp B/P (MAP) Pulse Ox O2 Delivery O2 Flow Rate FiO2 02/13/19 12:13 92 Nasal Cannula 3.00 02/13/19 12:02 94 02/13/19 07:45 36.7 22 127/73 (91) Capillary Refill : General Appearance: No Apparent Distress, WD/WN, Anxious, Chronically ill, Obese HEENT: PERRL/EOMI, Normal ENT Inspection, Pharynx Normal Neck: Full Range of Motion, Normal Inspection, Non Tender, Supple, Carotid Bruit Respiratory: Chest Non Tender, Lungs Clear, No Accessory Muscle Use, No Respiratory Distress, Decreased Breath Sounds Cardiovascular: Regular Rate, Rhythm, No Gallop, No JVD, No Murmur, Normal Peripheral Pulses Gastrointestinal: Normal Bowel Sounds, No Organomegaly, No Pulsatile Mass, Non Tender, Soft Back: Normal Inspection, No CVA Tenderness, No Vertebral Tenderness Extremity: Normal Capillary Refill, Normal Inspection, Normal Range of Motion, Non Tender, No Calf Tenderness, No Pedal Edema, Pedal Edema Neurologic/Psychiatric: Alert, Oriented x3, No Motor/Sensory Deficits, Normal Mood/Affect, severity of illness coordinator II-XII Norm as Tested Skin: Normal Color, Warm/Dry Lymphatic: No Adenopathy Results/Procedures Lab Laboratory Tests 02/13/19 05:51 Patient resulted labs reviewed. FIM Transfers Therapy Code Descriptions/Definitions Functional [place] Measure: 0=Not Assessed/NA 4=Minimal Assistance 1=Total Assistance 5=Supervision or Setup 2=Maximal Assistance 6=Modified [place] 3=Moderate Assistance 7=Complete IndependenceSCALE: Activities may be completed with or without assistive devices. 5-Ltkqpskqgp-qjticod completes the activity by him/herself with no assistance from a helper. 5-Set-up or Clean-up Assistance-helper sets up or cleans up; patient completes activity. [place] assists only prior to or following the activity. 4-Supervision or Touching Assistance-helper provides verbal cues and/or touching/steadying and/or contact guard assistance as patient completes activity. Assistance may be provided throughout the activity or intermittently. 3-Partial/Moderate Assistance-helper does LESS THAN HALF the effort. [place] lifts, holds or supports trunk or limbs, but provides less than half the effort. 2-Substantial/Maximal Assistance-helper does MORE THAN HALF the effort. [place] lifts or holds trunk or limbs and provides more than half the effort. 6-Aostvndcq-bhdjxs does ALL the effort. Patient does none of the effort to complete the activity. Or, the assistance of 2 or more helpers is required for the patient to complete the activity. If activity was not attempted, code reason: 7-Patient Refused. 9-Not Applicable-not attempted and the patient did not perform the activity before the current illness, exacerbation or injury. 10-Not Attempted due to Environmental Limitations-(lack of equipment, weather restraints, etc.). 88-Not Attempted due to Medical Conditions or Safety Concerns. Roll Left to Right (QC): 3 (Demario) Sit to Lying (QC): 3 (modA) Sit to Stand (QC): 1 (sit to stand machine) Chair/Gfn-gx-Tjqdp Xfer(QC): 1 (sit to stand machine) Car Transfer (QC): 88 Gait Training Does the Patient Walk?: No and Walking Goal IS indicated Walk 10 feet (QC): 88 Walk 50 ft with 2 Turns(QC): 88 Walk 150 ft (QC): 88 Walking 10ft/uneven surface-QC: 88 Wheelchair Training Does the Pt Use a Wheelchair?: Yes Distance: 100x2 Wheel 50 ft with 2 turns (QC): 4 Wheel 150 ft (QC): 88 Type of Wheelchair: Manual Stair Training 1 Step (curb) (QC): 88 4 Steps (QC): 88 12 Steps (QC): 88 Balance Picking up an Object (QC): 88 ADL-Treatment Eating (QC): 6 (Pt reports having no difficulty opening containers and bringing food to his mouth.) Oral Hygiene (QC): 5 (pt completed task with set up assistance seated in w/c at sink) Shower/Bathe Self (QC): 1 (Pt able to wash BUE, chest, abdomen, periarea, and BLE upper legs. Pt required assistance cleaning BLE lower legs and feet, and buttocks. To wash buttocks, sit to stand lift was required causing dependent score.) Upper Body Dressing (QC): 3 (Pt able to kemar/doff hospital gown from arms, required assistance with tying/untying gown. ) Lower Body Dressing (QC): 1 (Sit to stand lift required in order to kemar brief. Pt unable to assist with donning brief.) On/Off Footwear (QC): 1 (Pt unable to reach feet in order to don/doff footwear. OT assisted with all parts of task. 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 Chronic anxiety PAF Anasarca CHF COPD OHS DM Plan: Monitor closely Monitor AF Appreciate Josseline matias Full code per patient request PICC line placement (1) Myopathy Status: Acute (2) Atrial fibrillation (3) Anasarca (4) Fair prognosis (5) Debility (6) Bryson catheter in place (7) Acute on chronic respiratory failure with hypoxia Status: Acute (8) LUIGI treated with BiPAP Status: Chronic (9) CKD (chronic kidney disease) Status: Chronic (10) COPD (chronic obstructive pulmonary disease) (11) Diabetes mellitus with hyperglycemia Status: Chronic (12) Obesity hypoventilation syndrome Status: Chronic (13) Pulmonary HTN Status: Chronic (14) Pulmonary edema Status: Acute (15) CAD (coronary artery disease) Status: Chronic (16) DVT prophylaxis Status: Acute (17) Lymphedema (18) Hypoxia Status: Acute (19) Respiratory insufficiency (20) Hypercapnia Status: Acute (21) Obesity Status: Acute (22) HTN (hypertension) Status: Acute YARIEL BUI DO Feb 13, 2019 12:25 POS
--- NOTE | 2019-02-13 13:24 | Diagnostic Imaging Report ---
Indication: Dyspnea. Comparison: 01/17/2019. Discussion: Two views of the chest were obtained. Mild cardiomegaly stable. Bilateral mixed interstitial alveolar opacities are decreased from the prior exam given differences in technique. Suspect right pleural effusion. No pneumothorax or osseous abnormality. Impression: 1. Cardiomegaly with bilateral infiltrates and right pleural effusion. Dictated by: Dictated on workstation # [id number]
--- NOTE | 2019-02-13 14:01 | NUR ---
TEXT SENT TO DR. SMITH WITH CHEST XRAY RESULTS.
--- NOTE | 2019-02-13 15:51 | Progress Note - Cardiology ---
Cardiology SOAP Progress Note Subjective: He says he feels better than before Shortness of breath modestly improved No cp or palp or syncope Leg swelling as before Gen weakness slowly improving No N/V Objective: I&O/Vital Signs 02/13/19 02/13/19 02/13/19 02/13/19 04:15 07:00 07:45 08:56 Temp 36.2 36.7 Pulse 80 99 99 Resp 20 22 B/P (MAP) 151/88 (109) 127/73 (91) Pulse Ox 98 100 97 O2 Delivery Nasal Cannula Nasal Cannula Nasal Cannula O2 Flow Rate 2.00 2.00 3.00 02/13/19 02/13/19 02/13/19 02/13/19 09:06 09:26 12:02 12:13 Pulse 94 Pulse Ox 97 92 O2 Delivery Nasal Cannula Nasal Cannula Nasal Cannula O2 Flow Rate 3.00 2.00 3.00 02/13/19 00:00 Intake Total 500 ml Output Total 350 ml Balance 150 ml Weight (Pounds): 260 Weight (Ounces): 0.0 Weight (Calculated Kilograms): 117.675458 Constitutional: AAO x 3, well-developed, well-nourished, other (obese) Respiratory: No accessory muscle use; other (fair air entry, diminished at the bases, prolonged exp phase) Cardiovascular: regular rate-rhythm, S1 and S2, systolic murmur (2/6 PARRIS at c cb base) Gastrointestional: No tender; soft; No guarding, No rebound; audible bowel sounds Extremities: No clubbing, No cyanosis; significant edema (marked, bilateral, pitting edema of the legs) Neurologic/Psychiatric: oriented x 3, other (moves all limbs equally) Skin: No rash, No ulcerations Results/Procedures: Labs Laboratory Tests 02/12/19 20:29: Glucometer 348H 02/13/19 05:30: Glucometer 250H 02/13/19 05:51: White Blood Count 4.1L, Red Blood Count 2.91L, Hemoglobin 8.4L, Hematocrit 28L, Mean Corpuscular Volume 95, Mean Corpuscular Hemoglobin 29, Mean Corpuscular Hemoglobin Concent 30L, Red Cell Distribution Width 18.8H, Platelet Count 195, Mean Platelet Volume 10.6H, Sodium Level 144, Potassium Level 3.9, Chloride Level 94L, Carbon Dioxide Level 36H, Anion Gap 14, Blood Urea Nitrogen 41H, Creatinine 1.63H, Estimat Glomerular Filtration Rate 43, BUN/Creatinine Ratio 25, Glucose Level 259H, Calcium Level 8.5, Phosphorus Level 3.6, Magnesium Level 1.8 02/13/19 11:10: Glucometer 268H Laboratory Tests 02/12/19 05:34 02/13/19 05:51 A/P: Assessment: Type 2 repiratory failure in Dec 2018, multifactorial (see below) Chronic diastolic CHF PAF w/ RVR, currently controlled Pulmonary issues: obesity-hypoventilation with cor pulmonale, ac exac of COPD due to pneumonia Echo of 01/11/19 (Dr Gutiérrez): LVEF 55-65%, left atrial dilatation, pulmonary hypertension with PA pressure 50-60 mmHg Marked, chronic leg edema with intermittent cellulitis CKD 3 and episodes of ac renal insuff due to diuretic therapy Coronary artery disease, cath of 2014 showed coronary ectasia with slow flow, no significant obstructive disease Hyperlipidemia, by history Diabetes mellitus II Plan: * Continue current regimen * Monitor labs RUSH ARITA MD FACP FACC CCDS Feb 13, 2019 15:51 POS
--- NOTE | 2019-02-13 16:30 | NUR ---
DR. SMITH STATES THAT HE WILL ADDRESS CHEST XRAY RESULTS IN THE AM.
--- NOTE | 2019-02-13 16:31 | NUR ---
Initial meeting with patient. Patient was admitted from [facility] 02/11/19 for debility and myopathy due to critical illness. He had been an inpatient here at [facility] and transferred to [place] 01/17/19. He resides at home with his spouse Anita Garvey. He has no biological children, he has a step-son, age 40, that patient indicates is not available as a resource for assistance. Patient has history of an ARU stay 12/13/18 - 12/20/18. Reviewed DME and in-home services: DME: Has home O2 and [facility] from [facility]. He has grab bars (not installed), FWW and a cane. He indicates a bath chair was recommended but he has not yet gotten one, he does understand it is private pay and not Medicare covered. HHC: Patient had services through [facility] but this had terminated. INSURANCE: Patient is insured Medicare only. [employer] discussed financial assistance program through [facility], patient willing to complete application. Paperwork left in room for patient/spouse review. Physician documents reflect anticipated length of stay 10 days. Patient understands this will be reviewed Wednesdays during team meeting with patient update to follow. PCP: PSYCHIATRIC MARSHA Degroot. [facility] discharge information does not include any followup physician visits. Continue intermittent review and patient visits for post hospital care planning.
[2019-02-13 18:09] VITALS: BP 134/72
[2019-02-13 20:35] VITALS: BP 145/78
[2019-02-14] MEDS: RT-ALBUTEROL/IPRATROPIUM 3 ML (DUONEB) VIAL INH SCH ×5 (01:33→20:19)
[2019-02-14] MEDS: RT-ADVAIR HFA 115/21 MCG PER PUFF IH SCH ×3 (01:34→20:19)
[2019-02-14] MEDS: RT-BUDESONIDE NEBS 0.5 MG/2ML (PULMICORT) AMP INH SCH ×2 (01:34→08:09)
[2019-02-14 05:01] VITALS: BP 130/65
[2019-02-14] MEDS: ENOXAPARIN 40 MG/0.4 ML (LOVENOX) SYR SC SCH ×2 (05:31→17:22)
[2019-02-14] MEDS: MULTIVIT W/MINERALS TAB (THERAGRAN M) PO SCH (05:32)
[2019-02-14] MEDS: inSUlin ASPART (NovoLOG) 1 UNIT/0.01 ML (CHARGE PER UNIT) SC SCH ×4 (05:32→22:08)
[2019-02-14] MEDS: predniSONE 20 MG TAB PO SCH (05:32)
[2019-02-14 06:17] LABS: HEMOGLOBIN 8.2 G/DL (13.3-17.7); MEAN PLATELET VOLUME 10.3 FL (7.4-10.4); RED CELL DISTRIBUTION WIDTH 19.2 % (10.0-14.5)
[2019-02-14 06:42] LABS: CALCIUM 8.7 MG/DL (8.5-10.1); CREATININE SERUM 1.75 MG/DL (0.60-1.30); MAGNESIUM 1.9 MG/DL (1.6-2.4); PHOSPHORUS 3.5 MG/DL (2.3-4.7); POTASSIUM 3.7 MMOL/L (3.6-5.0)
[2019-02-14 08:27] VITALS: BP 112/69
[2019-02-14] MEDS: LACTOBACILLUS ACIDOPHILUS (PROBIOTIC) CAPSULE PO SCH ×2 (08:38→22:01)
[2019-02-14] MEDS: DOCUSATE SODIUM 100 MG (COLACE) CAP PO SCH ×2 (08:39→21:50)
[2019-02-14] MEDS: PANTOPRAZOLE 40 MG (PROTONIX) TAB PO SCH (08:39)
[2019-02-14] MEDS: SENNA W/DOCUSATE (SENOKOT S) TABLET PO SCH ×2 (08:39→21:50)
[2019-02-14] MEDS: FOLIC ACID 1 MG TAB PO SCH (08:39)
[2019-02-14] MEDS: busPIRone 10 MG (BUSPAR) TAB PO SCH ×2 (08:39→22:02)
[2019-02-14] MEDS: ASCORBIC ACID (VIT C) 500 MG TABLET PO SCH (08:39)
[2019-02-14] MEDS: AMIODARONE 200 MG (CORDARONE) TAB PO SCH ×2 (08:40→22:02)
[2019-02-14] MEDS: AZITHROMYCIN 250 MG TAB (ZITHROMAX) PO SCH (08:40)
[2019-02-14] MEDS: POLYETHYLENE GLYCOL 17 GM (MIRALAX) PACK PO SCH ×2 (08:45→21:50)
[2019-02-14] MEDS: SILDENAFIL 20 MG (REVATIO) TAB NON-FORMULARY PO SCH ×3 (08:46→22:06)
[2019-02-14] MEDS: THEOPHYLLINE ER 400 MG TAB (THEO-24) PO SCH (08:52)
--- NOTE | 2019-02-14 08:58 | NUR ---
Notified Dr. Villagomez of B/P, & scheduled Lopressor & Apresoline, stated to check w cardiology. BENNIE Sarmiento w Dr. Gutiérrez in to see pt, notified of B/P & pulse. States to go ahead & give both meds.
[2019-02-14] MEDS: meTOprolol TARTRATE 50 MG (LOPRESSOR) TAB PO SCH ×2 (09:00→22:02)
[2019-02-14] MEDS: hydrALAZINE (APRESOLINE) 25 MG TAB PO SCH ×2 (09:00→22:02)
--- NOTE | 2019-02-14 09:05 | Cardiology Progress Note ---
Subjective Date Seen by Provider: Feb 14, 2019 Time Seen by Provider: 09:02 Subjective/Events-last exam Patient is sitting up in chair, denies any chest pain or increased dyspnea. Mildly tachycardic this morning. Review of Systems General: No Chills, No Night Sweats; Fatigue; No Malaise, No Appetite, No Other HEENT: No Head Aches, No Visual Changes, No Eye Pain, No Ear Pain, No Dysphasia, No Sinus Congestion, No Post Nasal Drip, No Sore Throat, No Other Pulmonary: Dyspnea; No Cough, No Pleuritic Chest Pain, No Other Cardiovascular: Edema; No: Chest Pain, Palpitations, Orthopnea, Paroxysmal Noc. Dyspnea, Lt Headedness, Other Objective-Cardiology Exam Last Set of Vital Signs Vital Signs 02/14/19 08:27 Temp 37.0 Pulse 101 Resp 22 B/P (MAP) 112/69 (83) Pulse Ox 96 O2 Delivery Nasal Cannula O2 Flow Rate 2.00 Capillary Refill : I&O Intake and Output 02/14/19 00:00 Intake Total 1120 ml Output Total 950 ml Balance 170 ml Intake Oral 1120 ml Output Urine Total 950 ml General: Alert, Oriented X3, Cooperative HEENT: Atraumatic, PERRLA Neck: Supple, No JVD, No Thyromegaly Lungs: Other (diminished breath sounds bibasilarly) Heart: Normal S1, Normal S2, No Murmurs, Other (tachycardic) Abdomen: Normal Bowel Sounds, Soft Extremities: Other (BLE edema with C/D/I evelina wraps) Skin: No Rashes, No Significant Lesion Neuro: Normal Speech, Cranial Nerves 3-12 NL Psych/Mental Status: Mental Status NL, Mood NL Results Lab Laboratory Tests 02/14/19 05:50 A/P-Cardiology Admission Diagnosis COPD CAD PAF CKD Assessment/Plan Type 2 repiratory failure in Dec 2018, multifactorial, obesity-hypoventilation with cor pulmonale, ac exac of COPD due to pneumonia, continues to improve. Chronic diastolic CHF, 2D Echo done 01/11/19 revealed LVEF 55-65%, left atrial dilatation, pulmonary hypertension with PA pressure 50-60 mmHg PAF w/ RVR, tachycardic this morning. Appears to be in a-flutter on telemetry. Maintained on Amiodarone, lovenox. I will obtain EKG, planning to TYS[facility] with cardioversion on Thursday. Marked, chronic leg edema with intermittent cellulitis CKD 3 and episodes of ac renal insuff due to diuretic therapy Coronary artery disease, cath of 2014 showed coronary ectasia with slow flow, no significant obstructive disease Hyperlipidemia, by history Diabetes mellitus II Patient was seen and evaluated with Charu, examination performed, management plan was discussed, agree with the current scribed note, I made few changes to the note using Italic font Patient is sitting comfortably in bed, no new complaint Lungs were clear to auscultation, heart is irregular Review of systems record showed atrial flutter, feeling slight palpitation, heart rate is borderline tachycardic I will continue with Lovenox for now, planning to switch to oral anticoagulation I am planning to evaluate TYSON and possible electrical cardioversion Continue current medication Clinical Quality Measures DVT/VTE Risk/Contraindication: Risk Factor Score Per Nursin RFS Level Per Nursing on Admit: 4+=Very High CHARU SHELDON Feb 14, 2019 9:05 am AMI HINSON MD Feb 14, 2019 12:37 pm GANESH
--- NOTE | 2019-02-14 09:48 | PM&R Progress Note ---
Subjective HPI/CC On Admission Date Seen by Provider: Feb 14, 2019 Time Seen by Provider: 08:30 Subjective/Events-last exam Blood sugar was 275 White Count 4.0, Hgb 8.2, Creatinine 1.75 He slept in his bed last night instead of the recliner Kept off his coccyx Picc line will be placed today Telemetry shows atrial flutter and normal sinus rhythm sporadically BRANDEN wraps seem to be helping his anasarca DM reviewed Conferred with RN Checked meds and labs Review of Systems General: Fatigue Pulmonary: Dyspnea Cardiovascular: Edema Objective Exam Vital Signs Vital Signs Date Time Temp Pulse Resp B/P (MAP) Pulse Ox O2 Delivery O2 Flow Rate FiO2 02/15/19 01:00 88 02/14/19 22:00 18 121/72 (88) Nasal Cannula 2.00 02/14/19 20:20 99 02/14/19 17:33 36.3 Capillary Refill : General Appearance: No Apparent Distress, WD/WN, Anxious, Chronically ill, Obese HEENT: PERRL/EOMI, Normal ENT Inspection, Pharynx Normal Neck: Full Range of Motion, Normal Inspection, Non Tender, Supple, Carotid Bruit Respiratory: Chest Non Tender, Lungs Clear, No Accessory Muscle Use, No Respiratory Distress, Decreased Breath Sounds Cardiovascular: Regular Rate, Rhythm, No Gallop, No JVD, No Murmur, Normal Peripheral Pulses Gastrointestinal: Normal Bowel Sounds, No Organomegaly, No Pulsatile Mass, Non Tender, Soft Back: Normal Inspection, No CVA Tenderness, No Vertebral Tenderness Extremity: Normal Capillary Refill, Normal Inspection, Normal Range of Motion, Non Tender, No Calf Tenderness, No Pedal Edema, Pedal Edema Neurologic/Psychiatric: Alert, Oriented x3, No Motor/Sensory Deficits, Normal Mood/Affect, lining caser II-XII Norm as Tested Skin: Normal Color, Warm/Dry Lymphatic: No Adenopathy Results/Procedures Lab Laboratory Tests 02/14/19 05:50 Patient resulted labs reviewed. FIM Transfers Therapy Code Descriptions/Definitions Functional [place] Measure: 0=Not Assessed/NA 4=Minimal Assistance 1=Total Assistance 5=Supervision or Setup 2=Maximal Assistance 6=Modified [place] 3=Moderate Assistance 7=Complete IndependenceSCALE: Activities may be completed with or without assistive devices. 1-Kmrmkhvbyj-vidqxxy completes the activity by him/herself with no assistance from a helper. 5-Set-up or Clean-up Assistance-helper sets up or cleans up; patient completes activity. [place] assists only prior to or following the activity. 4-Supervision or Touching Assistance-helper provides verbal cues and/or touching/steadying and/or contact guard assistance as patient completes activity. Assistance may be provided throughout the activity or intermittently. 3-Partial/Moderate Assistance-helper does LESS THAN HALF the effort. [place] lifts, holds or supports trunk or limbs, but provides less than half the effort. 2-Substantial/Maximal Assistance-helper does MORE THAN HALF the effort. [place] lifts or holds trunk or limbs and provides more than half the effort. 6-Ayigdspvx-nmhoyd does ALL the effort. Patient does none of the effort to complete the activity. Or, the assistance of 2 or more helpers is required for the patient to complete the activity. If activity was not attempted, code reason: 7-Patient Refused. 9-Not Applicable-not attempted and the patient did not perform the activity before the current illness, exacerbation or injury. 10-Not Attempted due to Environmental Limitations-(lack of equipment, weather restraints, etc.). 88-Not Attempted due to Medical Conditions or Safety Concerns. Roll Left to Right (QC): 3 (Demario) Sit to Lying (QC): 3 (modA) Sit to Stand (QC): 1 (sit to stand machine) Chair/Wnb-ww-Eypgm Xfer(QC): 1 (sit to stand machine) Car Transfer (QC): 88 Gait Training Does the Patient Walk?: No and Walking Goal IS indicated Walk 10 feet (QC): 88 Walk 50 ft with 2 Turns(QC): 88 Walk 150 ft (QC): 88 Walking 10ft/uneven surface-QC: 88 Wheelchair Training Does the Pt Use a Wheelchair?: Yes Distance: 100x2 Wheel 50 ft with 2 turns (QC): 4 Wheel 150 ft (QC): 88 Type of Wheelchair: Manual Stair Training 1 Step (curb) (QC): 88 4 Steps (QC): 88 12 Steps (QC): 88 Balance Picking up an Object (QC): 88 ADL-Treatment Eating (QC): 6 (Pt reports having no difficulty opening containers and bringing food to his mouth.) Oral Hygiene (QC): 5 (pt completed task with set up assistance seated in w/c at sink) Shower/Bathe Self (QC): 1 (Pt able to wash BUE, chest, abdomen, periarea, and BLE upper legs. Pt required assistance cleaning BLE lower legs and feet, and buttocks. To wash buttocks, sit to stand lift was required causing dependent score.) Upper Body Dressing (QC): 3 (Pt able to kemar/doff hospital gown from arms, required assistance with tying/untying gown. ) Lower Body Dressing (QC): 1 (Sit to stand lift required in order to kemar brief. Pt unable to assist with donning brief.) On/Off Footwear (QC): 1 (Pt unable to reach feet in order to don/doff footwear. OT assisted with all parts of task. 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 Chronic anxiety PAF Anasarca CHF COPD OHS DM Poor venous access Plan: Monitor closely Monitor AF Appreciate Josseline Contreras and Miguel matias Full code per patient request PICC line placement (1) Myopathy Status: Acute (2) Atrial fibrillation (3) Anasarca (4) Fair prognosis (5) Debility (6) Molina catheter in place (7) Acute on chronic respiratory failure with hypoxia Status: Acute (8) LUIGI treated with BiPAP Status: Chronic (9) CKD (chronic kidney disease) Status: Chronic (10) COPD (chronic obstructive pulmonary disease) (11) Diabetes mellitus with hyperglycemia Status: Chronic (12) Obesity hypoventilation syndrome Status: Chronic (13) Pulmonary HTN Status: Chronic (14) Pulmonary edema Status: Acute (15) CAD (coronary artery disease) Status: Chronic (16) DVT prophylaxis Status: Acute (17) Lymphedema (18) Hypoxia Status: Acute (19) Respiratory insufficiency (20) Hypercapnia Status: Acute (21) Obesity Status: Acute (22) HTN (hypertension) Status: Acute YARIEL BUI DO Feb 14, 2019 09:48 POS
--- NOTE | 2019-02-14 10:30 | NUR ---
Pastoral care visit.
--- NOTE | 2019-02-14 11:53 | Physical Therapy Daily Note ---
PT Daily Note-Current Subjective pt in shower with OT pre-tx agrees to therapy. this will be a co-tx secondary to pt's need for 2 skilled therapist to coordinate UE & LE for functional activities as well as maintaining balance for functional activities. Appearance pt in bed post-tx with call light, room phone, tray table in reach with all needs met at this time. Mental Status Patient Orientation: Person, Place, Time, Situation Attachments: [place]ina Catheter, IV Telemetry Transfers SCALE: Activities may be completed with or without assistive devices. 3-Divkmofmvq-yozkupv completes the activity by him/herself with no assistance from a helper. 5-Set-up or Clean-up Assistance-helper sets up or cleans up; patient completes activity. [place] assists only prior to or following the activity. 4-Supervision or Touching Assistance-helper provides verbal cues and/or touching/steadying and/or contact guard assistance as patient completes activity. Assistance may be provided throughout the activity or intermittently. 3-Partial/Moderate Assistance-helper does LESS THAN HALF the effort. [place] lifts, holds or supports trunk or limbs, but provides less than half the effort. 2-Substantial/Maximal Assistance-helper does MORE THAN HALF the effort. [place] lifts or holds trunk or limbs and provides more than half the effort. 7-Yqcfjmyww-kpnqmj does ALL the effort. Patient does none of the effort to complete the activity. Or, the assistance of 2 or more helpers is required for the patient to complete the activity. If activity was not attempted, code reason: 7-Patient Refused. 9-Not Applicable-not attempted and the patient did not perform the activity before the current illness, exacerbation or injury. 10-Not Attempted due to Environmental Limitations-(lack of equipment, weather restraints, etc.). 88-Not Attempted due to Medical Conditions or Safety Concerns. Sit to Stand (QC): 1 (maxX2) Chair/Jks-ft-Qqdgl Xfer(QC): 1 sit to stand machine for transfers Weight Bearing Full Weight Bearing Full Weight Bearing Exercises Seated Therapy Exercises: Ankle pumps, Sit to stand (4 stands for time. about 10-20seconds each), Long arc quads, Hip flexion Seated Reps: 20 (10eps 2 sets) Treatments PT assisted with balance and LE placement while OT performed showering and ADL's with the pt. PT assisted with LE placement and use while OT assisted with UE placement and use for sit to stand practices and transferring. Assessment Current Status: Fair Progress pt was able to stand this session with maxAx2 which he was unable to do previously. Pt fatigues quickly but is motivated and willing to do what he is asked to get better. Will continue to use sit to stand machine at this time for transfers due to pt's assist requirements and his instabilities on his LE. PT Short Term Goals Short Term Goals Time Frame: Feb 18, 2019 Roll Left & Right: 4 (SBA) Sit to lyin (Demario) Lying to sitting on side of be: 3 Sit to stand: 2 (maxA) Chair/uxs-ac-mncot transfer: 2 (maxA) PT Detention Goals Detention Goals PT Detention Goals Time Frame: Mar 04, 2019 Roll Left & Right (QC): 6 Sit to Lying (QC): 4 (SBA) Lying-Sitting on Side/Bed(QC): 4 (SBA) Sit to Stand (QC): 3 (Demario) Chair/Fzc-rt-Ojmfd Xfer(QC): 3 (Demario) Toilet Transfer (QC): 3 (Demario) Car Transfer (QC): 3 (Demario) Does the Patient Walk: No and Walking Goal IS indicated Walk 10 feet (QC): 3 (Demario) Walk 50ft with 2 Turns (QC): 3 (Demario) Walk 150 ft (QC): 88 Walking 10ft on Uneven Surface: 88 1 Step (curb) (QC): 3 (modA) 4 Steps (QC): 88 12 Steps (QC): 88 Picking up an Object (QC): 88 Does the Pt use WC or Scooter?: Yes Wheel 50 feet with 2 turns (QC: 6 Type: Manual Wheel 150 feet: 6 Type: Manual PT Plan Problem List Problem List: Activity Tolerance, Functional Strength, Safety, Balance, Gait, Transfer, Bed Mobility, ROM Treatment/Plan Treatment Plan: Continue Plan of Care Treatment Plan: Bed Mobility, Concurrent Therapy, Education, Functional Activity Johanna, Functional Strength, Group Therapy, Gait, Safety, Therapeutic Exercise, Transfers Treatment Duration: Mar 04, 2019 Frequency: At least 5 of 7 days/Wk (IRF) Estimated Hrs Per Day: 1.5 hours per day Patient and/or Family Agrees t: Yes Safety Risks/Education Patient Education: Transfer Techniques, Correct Positioning, Safety Issues Teaching Recipient: Patient Teaching Methods: Demonstration, Discussion Response to Teaching: Return Demonstration, Reinforcement Needed Time/GCodes Time In: 1100 Time Out: 1200 Total Billed Treatment Time: 60 Total Billed Treatment 60' Co-TX with OT. 1 visit 15' EX 45' FA MARINO VEGA PT Feb 14, 2019 11:53 POS
--- NOTE | 2019-02-14 12:48 | Occupational Ther Daily Note ---
OT Current Status-Daily Note Subjective Pt alert, sitting in recliner. Pt agrees to therapy. No c/o pain at this time. Mental Status/Objective Patient Orientation: Person, Place, Time, Situation Attachments: [place] Catheter, Oxygen ADL-Treatment OT/PT co-treated secondary to decreased functional mobility and medical complexity requiring the skills of 2 disciplines that a director child abuse therapy could not perform. OT focused on UE placement, sequencing, and ADLs, while PT focused on overall gross movements and LE placement. Using sit to stand lift for all transfers. Pt transferred to shower chair with cutout. Pt completed upper body bathing and used long handle sponge for LE's, assist with buttocks and ovi area in sitting. Pt donned/doffed upper body clothing, after set up. Dependent with lower body dressing. Therapy Code Descriptions/Definitions Functional [place] Measure: 0=Not Assessed/NA 4=Minimal Assistance 1=Total Assistance 5=Supervision or Setup 2=Maximal Assistance 6=Modified [place] 3=Moderate Assistance 7=Complete IndependenceSCALE: Activities may be completed with or without assistive devices. 8-Nikdnydjax-njxdlqr completes the activity by him/herself with no assistance from a helper. 5-Set-up or Clean-up Assistance-helper sets up or cleans up; patient completes activity. [place] assists only prior to or following the activity. 4-Supervision or Touching Assistance-helper provides verbal cues and/or touching /steadying and/or contact guard assistance as patient completes activity. Assistance may be provided throughout the activity or intermittently. 3-Partial/Moderate Assistance-helper does LESS THAN HALF the effort. [place] lifts, holds or supports trunk or limbs, but provides less than half the effort. 2-Substantial/Maximal Assistance-helper does MORE THAN HALF the effort. [place] lifts or holds trunk or limbs and provides more than half the effort. 4-Aprwyjyyr-mqnpgh does ALL the effort. Patient does none of the effort to complete the activity. Or, the assistance of 2 or more helpers is required for the patient to complete the activity. If activity was not attempted, code reason: 7-Patient Refused. 9-Not Applicable-not attempted and the patient did not perform the activity before the current illness, exacerbation or injury. 10-Not Attempted due to Environmental Limitations-(lack of equipment, weather restraints, etc.). 88-Not Attempted due to Medical Conditions or Safety Concerns. Bathing Location: L Arm, R Arm, L Upper Leg, R Upper Leg, L Lower Leg (including foot), R Lower Leg (including foot), Chest, Abdomen Shower/Bathe Self (QC): 2 Upper Body Dressing (QC): 5 Lower Body Dressing (QC): 1 Other Treatment Pt was able to stand with assist x2 at parallel bars, max A. After therapy, pt lying in bed with call light/phone in reach. All needs met in room. OT Short Term Goals Short Term Goals Time Frame: Feb 25, 2019 Toileting hygiene: 2 Lower body dressin Putting on/taking off footwear: 2 OT Professional Organizer Goals Professional Organizer Goals Time Frame: Mar 11, 2019 Eating (QC): 6 Oral Hygiene (QC): 6 Toileting Hygiene (QC): 6 Shower/Bathe Self (QC): 6 Upper Body Dressing (QC): 6 Lower Body Dressing (QC): 6 On/Off Footwear (QC): 6 Additional Goals: 1-Demonstrate ADL Tasks, 2-Verbalize Understanding, 3- ImproveStrength/Johanna 1=Demonstrate adherence to instructed precautions during ADL tasks. 2=Patient will verbalize/demonstrate understanding of assistive devices/m odifications for ADL. 3=Patient will improve strength/tolerance for activity to enable patient to perform ADL's. OT Education/Plan Problem List/Assessment Assessment: Decreased Activ Tolerance, Decreased UE Strength, Dependent Transfers, Impaired Bed Mobility, Impaired Cognition, Impaired Coordination, Impaired Funct Balance, Impaired Self-Care Skills Discharge Recommendations Plan/Recommendations: Continue POC Treatment Plan/Plan of Care Patient would benefit from OT for education, treatment and training to promote independence in ADL's, mobility, safety and/or upper extremity function for ADL's. Plan of Care: ADL Retraining, Caregiver Training, Functional Mobility, Group Exercise/Act as Ind, UE Funct Exercise/Act Treatment Duration: Mar 11, 2019 Frequency: At least 5 of 7 days/Wk (IRF) Estimated Hrs Per Day: 1.5 hours per day Agreement: Yes Rehab Potential: Guarded Time/GCodes Start Time: 10:30 Stop Time: 12:00 Total Time Billed (hr/min): 90 Billed Treatment Time 1 visit-ADL 4 (60 min) FA 2 (30 min) Co-treat with PT 60 min ([id number]) individual ([id number]) TERRA SHAW Feb 14, 2019 12:48 POS
--- NOTE | 2019-02-14 13:26 | Diagnostic Imaging Report ---
INDICATION: PICC line placement. TIME OF EXAM: 12:47 PM COMPARISON: Comparison is made with prior chest from one day earlier. FINDINGS: Left upper extremity PICC line appears to have the tip overlying the SVC. The heart is enlarged but stable. Right basilar infiltrate and pleural fluid persist. Overall congestive changes do appear to be improved. There is no pneumothorax. There is a small amount of left pleural fluid. IMPRESSION: 1. Satisfactory PICC line placement. 2. Small bilateral effusions with right basilar infiltrate. Congestive changes have improved since yesterday. Dictated by: Dictated on workstation # [id number]
--- NOTE | 2019-02-14 13:33 | NUR ---
PT in now to work w pt. BRANDEN wraps were placed to bilat lower legs after lotion applied. Feet & legs dry, crusty. EKG done & sent to Dr. Gutiérrez
--- NOTE | 2019-02-14 14:15 | Physical Therapy Daily Note ---
PT Daily Note-Current Subjective pt in bed pre-tx agrees to therapy reports he is very tired and doesn't think he can get out of bed this afternoon because he has been busy all day with therapy, PICC line placement and EKG. Appearance pt in bed post-tx with RN and in room. pt with call light, phone, table in reach and all needs met at this time. Mental Status Patient Orientation: Person, Place, Time, Situation Attachments: Central Line (PICC line), Oxygen (2L N/C), Molina Catheter Transfers SCALE: Activities may be completed with or without assistive devices. 7-Vdhwhyioco-mhmhfey completes the activity by him/herself with no assistance from a helper. 5-Set-up or Clean-up Assistance-helper sets up or cleans up; patient completes activity. [place] assists only prior to or following the activity. 4-Supervision or Touching Assistance-helper provides verbal cues and/or touching/steadying and/or contact guard assistance as patient completes activity. Assistance may be provided throughout the activity or intermittently. 3-Partial/Moderate Assistance-helper does LESS THAN HALF the effort. [place] lifts, holds or supports trunk or limbs, but provides less than half the effort. 2-Substantial/Maximal Assistance-helper does MORE THAN HALF the effort. [place] lifts or holds trunk or limbs and provides more than half the effort. 6-Wyrzylgnw-qxblys does ALL the effort. Patient does none of the effort to complete the activity. Or, the assistance of 2 or more helpers is required for the patient to complete the activity. If activity was not attempted, code reason: 7-Patient Refused. 9-Not Applicable-not attempted and the patient did not perform the activity before the current illness, exacerbation or injury. 10-Not Attempted due to Environmental Limitations-(lack of equipment, weather restraints, etc.). 88-Not Attempted due to Medical Conditions or Safety Concerns. Weight Bearing Full Weight Bearing Full Weight Bearing Exercises Supine Ex: Ankle pumps, Quad Set, Glut sets, Heel Slides, Straight leg raise, Hip abd/add Supine Reps: 30 (10reps 3 sets) Treatments pt performed functional LE strengthening exercises and education. Assessment Current Status: Fair Progress pt brody LE strengthening and is very fatigued following structured therapy and multiple nursing procedures. Pt reports he is ready for pain in his LE's to go down. PT Short Term Goals Short Term Goals Time Frame: Feb 18, 2019 Roll Left & Right: 4 (SBA) Sit to lyin (Demario) Lying to sitting on side of be: 3 Sit to stand: 2 (maxA) Chair/hcp-qx-foulb transfer: 2 (maxA) PT Mcfp Goals Cylinder Loader Goals PT Cylinder Loader Goals Time Frame: Mar 04, 2019 Roll Left & Right (QC): 6 Sit to Lying (QC): 4 (SBA) Lying-Sitting on Side/Bed(QC): 4 (SBA) Sit to Stand (QC): 3 (Demario) Chair/Wkf-di-Bocsb Xfer(QC): 3 (Demario) Toilet Transfer (QC): 3 (Demario) Car Transfer (QC): 3 (Demario) Does the Patient Walk: No and Walking Goal IS indicated Walk 10 feet (QC): 3 (Demario) Walk 50ft with 2 Turns (QC): 3 (Demario) Walk 150 ft (QC): 88 Walking 10ft on Uneven Surface: 88 1 Step (curb) (QC): 3 (modA) 4 Steps (QC): 88 12 Steps (QC): 88 Picking up an Object (QC): 88 Does the Pt use WC or Scooter?: Yes Wheel 50 feet with 2 turns (QC: 6 Type: Manual Wheel 150 feet: 6 Type: Manual PT Plan Problem List Problem List: Activity Tolerance, Functional Strength, Safety, Balance, Gait, Transfer, Bed Mobility, ROM Treatment/Plan Treatment Plan: Continue Plan of Care Treatment Plan: Bed Mobility, Concurrent Therapy, Education, Functional Activity Johanna, Functional Strength, Group Therapy, Gait, Safety, Therapeutic Exercise, Transfers Treatment Duration: Mar 04, 2019 Frequency: At least 5 of 7 days/Wk (IRF) Estimated Hrs Per Day: 1.5 hours per day Patient and/or Family Agrees t: Yes Safety Risks/Education Patient Education: Gait Training, Transfer Techniques, Correct Positioning, Safety Issues Teaching Recipient: Patient Teaching Methods: Demonstration, Discussion Response to Teaching: Return Demonstration, Reinforcement Needed Time/GCodes Time In: 1330 Time Out: 1400 Total Billed Treatment Time: 30 Total Billed Treatment 1 visit 30' EX TERRA WITT PT Feb 14, 2019 14:15 POS
--- NOTE | 2019-02-14 17:26 | Pulmonary Progress Note ---
Subjective Time Seen by a Provider: 09:21 Subjective/Events-last exam Pt is doing much better. Sepsis Event Evaluation Height, Weight, BMI Height: 5'11" Weight: 260lbs. 0.0oz. 117.745331qk; 53.40 BMI Method:Stated Exam Exam Vital Signs Date Time Temp Pulse Resp B/P (MAP) Pulse Ox O2 Delivery O2 Flow Rate FiO2 02/14/19 15:42 96 Nasal Cannula 2.00 02/14/19 13:00 89 02/14/19 08:27 37.0 101 22 112/69 (83) 96 Nasal Cannula 2.00 02/14/19 08:10 98 02/14/19 08:05 96 Nasal Cannula 2.00 02/14/19 07:00 93 02/14/19 05:01 36.3 79 18 130/65 (86) 97 NIV Bilevel 2.00 02/14/19 01:00 79 02/13/19 20:59 Nasal Cannula 2.00 02/13/19 20:35 98 145/78 (100) 02/13/19 19:00 90 02/13/19 18:09 36.8 108 20 134/72 (92) 95 Nasal Cannula 2.00 I & O 02/14/19 07:00 Intake Total 1600 ml Output Total 1050 ml Balance 550 ml Height & Weight Height: 5'11" Weight: 260lbs. 0.0oz. 117.273022wr; 53.40 BMI Method:Stated General Appearance: No Apparent Distress, WD/WN, Anxious, Chronically ill, Obese HEENT: PERRL/EOMI, Normal ENT Inspection, Pharynx Normal Neck: Full Range of Motion, Normal Inspection, Non Tender, Supple, Carotid Bruit Respiratory: Chest Non Tender, Lungs Clear, No Accessory Muscle Use, No Respiratory Distress, Decreased Breath Sounds Cardiovascular: Regular Rate, Rhythm, No Gallop, No JVD, No Murmur, Normal Peripheral Pulses Extremity: Normal Capillary Refill, Normal Inspection, Normal Range of Motion, Non Tender, No Calf Tenderness, No Pedal Edema, Pedal Edema Neurologic/Psychiatric: Alert, Oriented x3, No Motor/Sensory Deficits, Normal Mood/Affect, masseur/masseuse II-XII Norm as Tested Skin: Normal Color, Warm/Dry Lymphatic: No Adenopathy Results Lab Laboratory Tests 02/13/19 05:51 02/14/19 05:50 Assessment/Plan Assessment/Plan Chronic respiratory failure Severe oxygen dependent COPD -SVNS, adivair -02 -CXR reviewed Morbid obesity with OHS -Home vent to mask -Continue Home vent to mask QHS ECHO EF 55-65% CKD III -Monitor DEJA SMITH DO Feb 14, 2019 17:26 POS
[2019-02-14 17:33] VITALS: BP 145/79
--- NOTE | 2019-02-14 19:20 | NUR ---
[id number] report received from BRY HORN, assume care of pt
--- NOTE | 2019-02-14 21:05 | NUR ---
up to bedside commode using sit to stand
--- NOTE | 2019-02-14 21:30 | NUR ---
back to chair pt voided clear light sophie colored urine & had large soft brown stool
[2019-02-14 22:00] VITALS: BP 121/72
--- NOTE | 2019-02-14 22:00 | NUR ---
pt refused miralax, Senokot & Colace, fabs [phone] NovoLog 16 units given
--- NOTE | 2019-02-14 23:40 | NUR ---
pt on bipap at 2219 & requested off at 2319, tried to get pt to leave on but pt insists needs off can not tolerate blowing air in his face, 02 on at 2l/m per nc
--- NOTE | 2019-02-15 03:50 | NUR ---
pt did not feel need to void bladder scan showed 314ml order to straight cath if bladder scan showed greater than 600ml
[2019-02-15] MEDS: ENOXAPARIN 40 MG/0.4 ML (LOVENOX) SYR SC SCH ×2 (05:19→16:08)
[2019-02-15 05:33] LABS: HEMOGLOBIN 8.5 G/DL (13.3-17.7); MEAN PLATELET VOLUME 9.8 FL (7.4-10.4); RED CELL DISTRIBUTION WIDTH 19.2 % (10.0-14.5); WHITE BLOOD COUNT 4.7 10^3/uL (4.3-11.0)
[2019-02-15 05:52] LABS: CALCIUM 8.7 MG/DL (8.5-10.1); CREATININE SERUM 1.43 MG/DL (0.60-1.30); MAGNESIUM 1.8 MG/DL (1.6-2.4); PHOSPHORUS 2.4 MG/DL (2.3-4.7); POTASSIUM 3.6 MMOL/L (3.6-5.0)
--- NOTE | 2019-02-15 05:55 | NUR ---
pt states do not need to pee, bladder scan showed 368ml, order for straight cath if bladder scan greater than 600ml
[2019-02-15 05:57] VITALS: BP 146/74
[2019-02-15] MEDS: inSUlin ASPART (NovoLOG) 1 UNIT/0.01 ML (CHARGE PER UNIT) SC SCH ×4 (06:00→21:48)
[2019-02-15] MEDS: predniSONE 20 MG TAB PO SCH (06:52)
[2019-02-15] MEDS: MULTIVIT W/MINERALS TAB (THERAGRAN M) PO SCH (06:53)
--- NOTE | 2019-02-15 07:16 | NUR ---
bedside report given to ADILENE HORN
--- NOTE | 2019-02-15 08:00 | NUR ---
STATES SLEPT POOR BECAUSE DOESN'T LIKE BIPAP. FEELS CAN BEAR "A LITTLE WEIGHT ON LEGS NOW". VOIDED 500 CC IN URINAL.
[2019-02-15] MEDS: RT-ALBUTEROL/IPRATROPIUM 3 ML (DUONEB) VIAL INH SCH ×4 (08:24→21:04)
[2019-02-15] MEDS: RT-ADVAIR HFA 115/21 MCG PER PUFF IH SCH ×2 (08:25→21:04)
--- NOTE | 2019-02-15 08:26 | Occupational Ther Daily Note ---
OT Current Status-Daily Note Subjective Pt alert, sitting in recliner. Pt stated that he has been up since midnight because he couldn't sleep. Pt agrees to therapy. C/o tiredness. Mental Status/Objective Patient Orientation: Person, Place, Time, Situation Attachments: Oxygen (2L) ADL-Treatment Pt declined shower and changing clothes. Pt did agree to complete oral care and grooming. Sit<-->stand lift used for all transfers. Pt propelled w/c to bathroom to complete oral care at sink, mod I. Therapy Code Descriptions/Definitions Functional [place] Measure: 0=Not Assessed/NA 4=Minimal Assistance 1=Total Assistance 5=Supervision or Setup 2=Maximal Assistance 6=Modified [place] 3=Moderate Assistance 7=Complete IndependenceSCALE: Activities may be completed with or without assistive devices. 0-Fpwtnhwclq-ovqonnu completes the activity by him/herself with no assistance from a helper. 5-Set-up or Clean-up Assistance-helper sets up or cleans up; patient completes activity. [place] assists only prior to or following the activity. 4-Supervision or Touching Assistance-helper provides verbal cues and/or touching/steadying and/or contact guard assistance as patient completes activity. Assistance may be provided throughout the activity or intermittently. 3-Partial/Moderate Assistance-helper does LESS THAN HALF the effort. [place] lifts, holds or supports trunk or limbs, but provides less than half the effort. 2-Substantial/Maximal Assistance-helper does MORE THAN HALF the effort. [place] lifts or holds trunk or limbs and provides more than half the effort. 0-Brgrvspey-qtdnxr does ALL the effort. Patient does none of the effort to complete the activity. Or, the assistance of 2 or more helpers is required for the patient to complete the activity. If activity was not attempted, code reason: 7-Patient Refused. 9-Not Applicable-not attempted and the patient did not perform the activity before the current illness, exacerbation or injury. 10-Not Attempted due to Environmental Limitations-(lack of equipment, weather restraints, etc.). 88-Not Attempted due to Medical Conditions or Safety Concerns. Oral Hygiene (QC): 6 Other Treatment Co-treat PT/ OT for 45 min, skills of 2 clinicians required to complete high- demand standing exercises, OT focused on ADLs and UE strength while PT focused on LB strength and balance. Pt max A x2 for sit to stand at parallel bars. Pt completed UE exercises in all planes with 2# hand wts, 1 set 8 reps for shldr exercises and 2 sets 15 reps for bicep curls. See PT note for LE exercises. PT took over care of pt in therapy gym. All needs met in room. OT Short Term Goals Short Term Goals Time Frame: Feb 25, 2019 Toileting hygiene: 2 Lower body dressin Putting on/taking off footwear: 2 OT Communications Equipment Supervisor Goals Detention Goals Time Frame: Mar 11, 2019 Eating (QC): 6 Oral Hygiene (QC): 6 Toileting Hygiene (QC): 6 Shower/Bathe Self (QC): 6 Upper Body Dressing (QC): 6 Lower Body Dressing (QC): 6 On/Off Footwear (QC): 6 Additional Goals: 1-Demonstrate ADL Tasks, 2-Verbalize Understanding, 3- ImproveStrength/Johanna 1=Demonstrate adherence to instructed precautions during ADL tasks. 2=Patient will verbalize/demonstrate understanding of assistive devices/modifications for ADL. 3=Patient will improve strength/tolerance for activity to enable patient to perform ADL's. OT Education/Plan Problem List/Assessment Assessment: Decreased Activ Tolerance, Decreased UE Strength, Dependent Transfers, Impaired Bed Mobility, Impaired Coordination, Impaired Funct Balance, Impaired I ADL's, Impaired Self-Care Skills, Restricted Funct UE ROM Discharge Recommendations Plan/Recommendations: Continue POC Treatment Plan/Plan of Care Patient would benefit from OT for education, treatment and training to promote independence in ADL's, mobility, safety and/or upper extremity function for ADL's. Plan of Care: ADL Retraining, Caregiver Training, Functional Mobility, Group Exercise/Act as Ind, UE Funct Exercise/Act Treatment Duration: Mar 11, 2019 Frequency: At least 5 of 7 days/Wk (IRF) Estimated Hrs Per Day: 1.5 hours per day Agreement: Yes Rehab Potential: Guarded Time/GCodes Start Time: 07:15 Stop Time: 08:15 Total Time Billed (hr/min): 60 Billed Treatment Time 1 visit-ADL 1 (15 min) EX 3 (45 min) TERRA SHAW Feb 15, 2019 08:26 POS
--- NOTE | 2019-02-15 08:29 | Physical Therapy Daily Note ---
PT Daily Note-Current Subjective pt in WC in the bathroom with OT pre-tx agrees to PT. This will be a CO-tx secondary to pt's need for 2 skilled therapists to coordinate UE & LE for functional activity and the need for 2 skilled therapist to maintain pt balance for functional mobility and activity. Appearance pt in bed post-tx with call light, room phone, tray table in reach with all needs met at this time. Mental Status Patient Orientation: Person, Place, Time, Situation Attachments: Central Line, Oxygen (2L N/C) Transfers SCALE: Activities may be completed with or without assistive devices. 1-Lgqogmezni-goblbsz completes the activity by him/herself with no assistance from a helper. 5-Set-up or Clean-up Assistance-helper sets up or cleans up; patient completes activity. [place] assists only prior to or following the activity. 4-Supervision or Touching Assistance-helper provides verbal cues and/or touching/steadying and/or contact guard assistance as patient completes activity. Assistance may be provided throughout the activity or intermittently. 3-Partial/Moderate Assistance-helper does LESS THAN HALF the effort. [place] lifts, holds or supports trunk or limbs, but provides less than half the effort. 2-Substantial/Maximal Assistance-helper does MORE THAN HALF the effort. [place] lifts or holds trunk or limbs and provides more than half the effort. 6-Szmopqwjp-rcanow does ALL the effort. Patient does none of the effort to complete the activity. Or, the assistance of 2 or more helpers is required for the patient to complete the activity. If activity was not attempted, code reason: 7-Patient Refused. 9-Not Applicable-not attempted and the patient did not perform the activity before the current illness, exacerbation or injury. 10-Not Attempted due to Environmental Limitations-(lack of equipment, weather restraints, etc.). 88-Not Attempted due to Medical Conditions or Safety Concerns. Sit to Stand (QC): 1 MaxAx2 Weight Bearing Full Weight Bearing Full Weight Bearing Wheelchair Training Does the Pt Use a Wheelchair?: Yes Wheel 50 ft with 2 turns (QC): 3 (Demario for awareness) Type of Wheelchair: Manual pt fatigues quickly and needs assist to make it back to his room. Pt has poor awareness and gets too close to tsang and doors for turns. Exercises Seated Therapy Exercises: Ankle pumps, Long arc quads, Hip flexion, Hip abd/add Seated Reps: 30 (10reps 3 sets) Standing: Sit to Stand (attemptx5) Treatments PT assisted with seated balance while OT performed UE strengthening exercises and OT assisted with seated balance while PT performed functional LE strengthening exercises. PT assisted with LE placement and OT assisted with UE placement for transfers and sit to stands. 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 pt reports he was up in chair and unable to sleep from midnight until start of OT this session. Pt had to take multiple frequent rest breaks during [facility] this session. PT Short Term Goals Short Term Goals Time Frame: Feb 18, 2019 Roll Left & Right: 4 (SBA) Sit to lyin (Demario) Lying to sitting on side of be: 3 Sit to stand: 2 (maxA) Chair/kdm-io-ffato transfer: 2 (maxA) PT General Internal Medicine Doctor Goals General Internal Medicine Doctor Goals PT Detention Goals Time Frame: Mar 04, 2019 Roll Left & Right (QC): 6 Sit to Lying (QC): 4 (SBA) Lying-Sitting on Side/Bed(QC): 4 (SBA) Sit to Stand (QC): 3 (Demario) Chair/Cvo-pw-Tknir Xfer(QC): 3 (Demario) Toilet Transfer (QC): 3 (Demario) Car Transfer (QC): 3 (Demario) Does the Patient Walk: No and Walking Goal IS indicated Walk 10 feet (QC): 3 (Demario) Walk 50ft with 2 Turns (QC): 3 (Demario) Walk 150 ft (QC): 88 Walking 10ft on Uneven Surface: 88 1 Step (curb) (QC): 3 (modA) 4 Steps (QC): 88 12 Steps (QC): 88 Picking up an Object (QC): 88 Does the Pt use WC or Scooter?: Yes Wheel 50 feet with 2 turns (QC: 6 Type: Manual Wheel 150 feet: 6 Type: Manual PT Plan Problem List Problem List: Activity Tolerance, Functional Strength, Safety, Balance, Gait, Transfer, Bed Mobility, ROM Treatment/Plan Treatment Plan: Continue Plan of Care Treatment Plan: Bed Mobility, Concurrent Therapy, Education, Functional Activity Johanna, Functional Strength, Group Therapy, Gait, Safety, Therapeutic Exercise, Transfers Treatment Duration: Mar 04, 2019 Frequency: At least 5 of 7 days/Wk (IRF) Estimated Hrs Per Day: 1.5 hours per day Patient and/or Family Agrees t: Yes Safety Risks/Education Patient Education: Transfer Techniques, Correct Positioning, W/C Management, Safety Issues Teaching Recipient: Patient Teaching Methods: Demonstration, Discussion Response to Teaching: Return Demonstration, Reinforcement Needed Time/GCodes Time In: 729 Time Out: 829 Total Billed Treatment Time: 60 Total Billed Treatment Co treat 6039-1273 PT treat 1 visit FA 15' WC 15' EX 30' MARINO VEGA PT Feb 15, 2019 08:29 POS
--- NOTE | 2019-02-15 08:30 | NUR ---
DR. SANTACRUZ HERE TO SEE PATIENT. TYSON AND CARDIOVERSION SCHEDULED FOR AM.
--- NOTE | 2019-02-15 08:36 | PM&R Progress Note ---
Subjective HPI/CC On Admission Date Seen by Provider: Feb 15, 2019 Time Seen by Provider: 08:45 Subjective/Events-last exam BiPAP only tolerated for one hour last night. CPAP from home maybe attempted will reach out to Dr. Contreras. Had some urinary retention yesterday, now voided 500 CCs and feels like that is resolved. Having a TYSON and cardioversion tomorrow by Dr. Gutiérrez. Chest X-ray appears improved. BRANDEN wraps seem to be helping his anasarca DM reviewed Conferred with RN Checked meds and labs Review of Systems General: Fatigue Pulmonary: Dyspnea Cardiovascular: Edema Objective Exam Vital Signs Vital Signs Date Time Temp Pulse Resp B/P (MAP) Pulse Ox O2 Delivery O2 Flow Rate FiO2 02/15/19 17:41 36.9 86 20 142/78 (99) 90 Nasal Cannula 2.00 Capillary Refill : General Appearance: No Apparent Distress, WD/WN, Anxious, Chronically ill, Obese HEENT: PERRL/EOMI, Normal ENT Inspection, Pharynx Normal Neck: Full Range of Motion, Normal Inspection, Non Tender, Supple, Carotid Bruit Respiratory: Chest Non Tender, Lungs Clear, No Accessory Muscle Use, No Respiratory Distress, Decreased Breath Sounds Cardiovascular: Regular Rate, Rhythm, No Gallop, No JVD, No Murmur, Normal Peripheral Pulses Gastrointestinal: Normal Bowel Sounds, No Organomegaly, No Pulsatile Mass, Non Tender, Soft Back: Normal Inspection, No CVA Tenderness, No Vertebral Tenderness Extremity: Normal Capillary Refill, Normal Inspection, Normal Range of Motion, Non Tender, No Calf Tenderness, No Pedal Edema, Pedal Edema Neurologic/Psychiatric: Alert, Oriented x3, No Motor/Sensory Deficits, Normal Mood/Affect, lead care manager II-XII Norm as Tested Skin: Normal Color, Warm/Dry Lymphatic: No Adenopathy Results/Procedures Lab Laboratory Tests 02/15/19 05:10 Patient resulted labs reviewed. FIM Transfers Therapy Code Descriptions/Definitions Functional [place] Measure: 0=Not Assessed/NA 4=Minimal Assistance 1=Total Assistance 5=Supervision or Setup 2=Maximal Assistance 6=Modified [place] 3=Moderate Assistance 7=Complete IndependenceSCALE: Activities may be completed with or without assistive devices. 2-Twdsnmdtly-actcfpb completes the activity by him/herself with no assistance from a helper. 5-Set-up or Clean-up Assistance-helper sets up or cleans up; patient completes activity. [place] assists only prior to or following the activity. 4-Supervision or Touching Assistance-helper provides verbal cues and/or touching/steadying and/or contact guard assistance as patient completes activity. Assistance may be provided throughout the activity or intermittently. 3-Partial/Moderate Assistance-helper does LESS THAN HALF the effort. [place] lifts, holds or supports trunk or limbs, but provides less than half the effort. 2-Substantial/Maximal Assistance-helper does MORE THAN HALF the effort. [place] lifts or holds trunk or limbs and provides more than half the effort. 8-Qsdsgdxgs-corhfd does ALL the effort. Patient does none of the effort to complete the activity. Or, the assistance of 2 or more helpers is required for the patient to complete the activity. If activity was not attempted, code reason: 7-Patient Refused. 9-Not Applicable-not attempted and the patient did not perform the activity before the current illness, exacerbation or injury. 10-Not Attempted due to Environmental Limitations-(lack of equipment, weather restraints, etc.). 88-Not Attempted due to Medical Conditions or Safety Concerns. Roll Left to Right (QC): 3 (Demario) Sit to Lying (QC): 3 (modA) Sit to Stand (QC): 1 Chair/Klf-ev-Tksqs Xfer(QC): 1 Car Transfer (QC): 88 Gait Training Does the Patient Walk?: No and Walking Goal IS indicated Walk 10 feet (QC): 88 Walk 50 ft with 2 Turns(QC): 88 Walk 150 ft (QC): 88 Walking 10ft/uneven surface-QC: 88 Wheelchair Training Does the Pt Use a Wheelchair?: Yes Distance: 100x2 Wheel 50 ft with 2 turns (QC): 3 (Demario for awareness) Wheel 150 ft (QC): 88 Type of Wheelchair: Manual Stair Training 1 Step (curb) (QC): 88 4 Steps (QC): 88 12 Steps (QC): 88 Balance Picking up an Object (QC): 88 ADL-Treatment Eating (QC): 6 (Pt reports having no difficulty opening containers and bringing food to his mouth.) Oral Hygiene (QC): 6 Bathing Location: L Arm, R Arm, L Upper Leg, R Upper Leg, L Lower Leg (including foot), R Lower Leg (including foot), Chest, Abdomen Shower/Bathe Self (QC): 2 Upper Body Dressing (QC): 5 Lower Body Dressing (QC): 1 On/Off Footwear (QC): 1 (Pt unable to reach feet in order to don/doff footwear. OT assisted with all parts of task. 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 Chronic anxiety PAF Anasarca CHF COPD OHS DM Poor venous access Plan: Monitor closely Monitor AF Appreciate Josseline Contreras and Miguel matias Full code per patient request PICC line placement TYSON with cardioversion tomorrow (1) Myopathy Status: Acute (2) Atrial fibrillation (3) Anasarca (4) Fair prognosis (5) Debility (6) Molina catheter in place (7) Acute on chronic respiratory failure with hypoxia Status: Acute (8) LUIGI treated with BiPAP Status: Chronic (9) CKD (chronic kidney disease) Status: Chronic (10) COPD (chronic obstructive pulmonary disease) (11) Diabetes mellitus with hyperglycemia Status: Chronic (12) Obesity hypoventilation syndrome Status: Chronic (13) Pulmonary HTN Status: Chronic (14) Pulmonary edema Status: Acute (15) CAD (coronary artery disease) Status: Chronic (16) DVT prophylaxis Status: Acute (17) Lymphedema (18) Hypoxia Status: Acute (19) Respiratory insufficiency (20) Hypercapnia Status: Acute (21) Obesity Status: Acute (22) HTN (hypertension) Status: Acute YARIEL BUI DO Feb 15, 2019 08:36 POS
--- NOTE | 2019-02-15 08:37 | Cardiology Progress Note ---
Subjective Date Seen by Provider: Feb 15, 2019 Time Seen by Provider: 08:10 Subjective/Events-last exam Patient with PT, no new complaints. Denies chest pain or increased dyspnea Review of Systems General: No Chills, No Night Sweats, No Fatigue, No Malaise, No Appetite, No Other HEENT: No Head Aches, No Visual Changes, No Eye Pain, No Ear Pain, No Dysphasia, No Sinus Congestion, No Post Nasal Drip, No Sore Throat, No Other Pulmonary: Dyspnea; No Cough, No Pleuritic Chest Pain, No Other Cardiovascular: Edema; No: Chest Pain, Palpitations, Orthopnea, Paroxysmal Noc. Dyspnea, Lt Headedness, Other Objective-Cardiology Exam Last Set of Vital Signs Vital Signs 02/15/19 02/15/19 02/15/19 05:57 07:00 08:20 Temp 36.4 Pulse 115 Resp 20 B/P (MAP) 146/74 (98) Pulse Ox 95 O2 Delivery Nasal Cannula O2 Flow Rate 2.00 Capillary Refill : I&O Intake and Output 02/15/19 00:00 Intake Total 1770 ml Output Total 1450 ml Balance 320 ml Intake Oral 1770 ml Output Urine Total 1450 ml Bladder Scan Volume Amount 0 ml General: Alert, Oriented X3, Cooperative HEENT: Atraumatic, PERRLA Neck: Supple, No JVD, No Thyromegaly Lungs: Other (diminished breath sounds bibasilarly) Heart: Normal S1, Normal S2, No Murmurs, Other (tachycardic, irregular) Abdomen: Normal Bowel Sounds, Soft Extremities: Other (BLE edema with C/D/I evelina wraps) Skin: No Rashes, No Significant Lesion Neuro: Normal Speech, Cranial Nerves 3-12 NL Psych/Mental Status: Mental Status NL, Mood NL Results Lab Laboratory Tests 02/15/19 05:10 A/P-Cardiology Admission Diagnosis COPD CAD PAF CKD Assessment/Plan Status post repiratory failure in Dec 2018, multifactorial, obesity- hypoventilation with cor pulmonale, ac exac of COPD due to pneumonia, continues to improve. Chronic diastolic CHF, 2D Echo done 01/11/19 revealed LVEF 55-65%, left atrial dilatation, pulmonary hypertension with PA pressure 50-60 mmHg PAF w/ RVR, tachycardic this morning. Appears to be in a-flutter on telemetry. Maintained on Amiodarone, lovenox. Planning to TYSON with cardioversion in the morning. Marked, chronic leg edema with intermittent cellulitis CKD 3 and episodes of ac renal insuff due to diuretic therapy Coronary artery disease, cath of 2014 showed coronary ectasia with slow flow, no significant obstructive disease Hyperlipidemia, by history Diabetes mellitus II Clinical Quality Measures DVT/VTE Risk/Contraindication: Risk Factor Score Per Nursin RFS Level Per Nursing on Admit: 4+=Very High CYNDIE SHELDON Feb 15, 2019 08:37 AMI HINSON MD Feb 15, 2019 08:42 POS
[2019-02-15] MEDS: ASCORBIC ACID (VIT C) 500 MG TABLET PO SCH (08:44)
[2019-02-15] MEDS: THEOPHYLLINE ER 400 MG TAB (THEO-24) PO SCH (08:46)
[2019-02-15] MEDS: FOLIC ACID 1 MG TAB PO SCH (08:46)
[2019-02-15] MEDS: SILDENAFIL 20 MG (REVATIO) TAB NON-FORMULARY PO SCH ×3 (08:47→21:47)
[2019-02-15] MEDS: LACTOBACILLUS ACIDOPHILUS (PROBIOTIC) CAPSULE PO SCH ×2 (08:47→21:47)
[2019-02-15] MEDS: meTOprolol TARTRATE 50 MG (LOPRESSOR) TAB PO SCH ×2 (08:47→21:47)
[2019-02-15] MEDS: PANTOPRAZOLE 40 MG (PROTONIX) TAB PO SCH (08:48)
[2019-02-15] MEDS: hydrALAZINE (APRESOLINE) 25 MG TAB PO SCH ×2 (08:48→21:46)
[2019-02-15] MEDS: busPIRone 10 MG (BUSPAR) TAB PO SCH ×2 (08:48→21:46)
[2019-02-15] MEDS: AMIODARONE 200 MG (CORDARONE) TAB PO SCH ×2 (08:48→21:47)
--- NOTE | 2019-02-15 09:15 | NUR ---
DR. SMITH NOTIFIED THAT PATIENT DOES NOT WANT TO WEAR BIPAP ANYMORE BECAUSE HE DOES NOT LIKE IT AND REQUESTING TO WEAR CPAP FROM HOME.
--- NOTE | 2019-02-15 09:30 | NUR ---
PANIC ATTACK. "YOU'VE GOT TO DO SOMETHING". STATES GETTING TO CHAIR USUALLY HELPS AND UP TO CHAIR WITH [id number]. DID FEEL BETTER ONCE UP IN CHAIR.
[2019-02-15] MEDS: POLYETHYLENE GLYCOL 17 GM (MIRALAX) PACK PO SCH ×2 (09:34→21:42)
[2019-02-15] MEDS: DOCUSATE SODIUM 100 MG (COLACE) CAP PO SCH ×2 (09:34→21:47)
[2019-02-15] MEDS: SENNA W/DOCUSATE (SENOKOT S) TABLET PO SCH ×2 (09:34→21:42)
--- NOTE | 2019-02-15 10:30 | NUR ---
[facility] NOTIF[facility] OF TYSON/CARDIOVERSION IN AM.
--- NOTE | 2019-02-15 11:30 | NUR ---
UPDATED ON PROCEDURES FOR TOMORROW AND ASKED TO BRING IN CPAP MACHINE. SHE WILL BRING IT TOMORROW.
--- NOTE | 2019-02-15 14:31 | Therapy Group Daily Note ---
Therapy Daily Group Note Patient Education Topic Home Safety, Fall Prevention, Exercises Exercises LE Seated Exercise, Gross Motor Session Ratio (pt:therapist): 4:1 Goal of Session: Energy Conservation Tech., Home Safety Strategies, Memory Strategies To increase memory, socialization, and overall strength. Goal Met for this Session: Yes Pt Benefit of Group: Contributions to Others, Increased Functional Safety, Increased Functional Strength, Recognition of Peers, Socialization Other/Notes Pt. participated in group therapy session to work on socialization, memory, LE strength, as well as core strength. Pt. taken to therapy gym via reclining chair. Participated in socialization task with saying his name, where he was from, and answering question regarding [place] song from memory. Pt. then participated in LE ROM exercises, as well as core strength exercises seated. Pt. educated on importance of these exercises for ambulation and endurance strategies. Pt. then participated in home safety education, with therapist speaking about each room in the house, and how to implement safety in the home. Therapist demonstrated safe floor transfer as well. Pt. verbalized understanding of all education. Ended session with "name that tune" on [place] songs. Pt. able to participate with other pt.s and engage in conversations regarding [place] memories. Pt. taken back via recliner. All needs met. Start Time: 13:00 Stop Time: 14:10 Total Billed Treatment Time: 70 Total Billed Treatment 1, DAPHNE PAETL OT Feb 15, 2019 14:31 POS
[2019-02-15] MEDS ORDERED: CATHETER FLUSH 10 ML SYR IV PRN (15:30)
--- NOTE | 2019-02-15 15:45 | NUR ---
"RD ASSESSMENT PMHx: COPD; CKD(stage 3); CAD; T2DM; HLD; chronic edema PT INTERACTION: Pt was awake and pleasant during nutrition assessment. Pt states current appetite is pretty good and has been for some time. Note pt avg PO intake of 100% x2d, per chart review. Pt states no recent issues with n/v/c/d at this time. Note last BM was 02/15 and pt currently on bowel regimen of colace BID; miralax BID; senna BID; and bisacodyl PRN, per chart review. Pt states recent wt loss, but unsure of amount or timeframe. Note unable to determine recent wt hx, per chart review. ABNORMAL NUTRITION-RELATED LAB VALUES LOW: Cl 94 HIGH: BUN 38; cr 1.43; glu 117 Est. kcal needs: 6620-0927 kcal | 15-18 kcal/kg Est. Pro needs: 120-150 g Pro | 0.8-1.0 g Pro/kg PES STATEMENT: Given pt's current PO intake, no nutrition diagnosis at this time (NO-1.1) INTERVENTION: Continue with current diet order of Regular diet. Will continue to follow and reassess as pt needs and status change. MONITOR/EVALUATE: PO Intake; Plan of Care; Hydration Status; Weight Status; Lab Values Carmel Pizarro, MS, RD, LD"
--- NOTE | 2019-02-15 16:00 | NUR ---
TRIED TO USE URINAL, BUT COULDN'T. THEN WAS INCONTINENT OF A LARGE AMOUNT OF URINE.
[2019-02-15 17:41] VITALS: BP 142/78
[2019-02-15] MEDS: MELATONIN 3 MG TABLET PO PRN (21:42)
[2019-02-15] MEDS: CATHETER FLUSH 10 ML SYR IV SCH (21:50)
[2019-02-16 05:13] LABS: HEMOGLOBIN 8.1 G/DL (13.3-17.7); MEAN PLATELET VOLUME 9.2 FL (7.4-10.4); WHITE BLOOD COUNT 2.8 10^3/uL (4.3-11.0)
[2019-02-16] MEDS: ENOXAPARIN 40 MG/0.4 ML (LOVENOX) SYR SC SCH ×2 (05:20→17:28)
[2019-02-16] MEDS: SENNA W/DOCUSATE (SENOKOT S) TABLET PO SCH ×3 (05:21→20:23)
[2019-02-16] MEDS: predniSONE 20 MG TAB PO SCH ×2 (05:21→05:22)
[2019-02-16] MEDS: CATHETER FLUSH 10 ML SYR IV SCH ×3 (05:22→20:23)
[2019-02-16] MEDS: MULTIVIT W/MINERALS TAB (THERAGRAN M) PO SCH (05:23)
[2019-02-16] MEDS: inSUlin ASPART (NovoLOG) 1 UNIT/0.01 ML (CHARGE PER UNIT) SC SCH ×4 (05:31→20:30)
[2019-02-16 05:34] VITALS: BP 124/76
[2019-02-16 05:44] LABS: CALCIUM 8.5 MG/DL (8.5-10.1); CREATININE SERUM 1.38 MG/DL (0.60-1.30); PHOSPHORUS 3.1 MG/DL (2.3-4.7); POTASSIUM 3.7 MMOL/L (3.6-5.0)
[2019-02-16] MEDS: RT-ALBUTEROL/IPRATROPIUM 3 ML (DUONEB) VIAL INH SCH ×4 (07:15→18:26)
[2019-02-16] MEDS: RT-ADVAIR HFA 115/21 MCG PER PUFF IH SCH (07:15)
--- NOTE | 2019-02-16 09:23 | PM&R Progress Note ---
Subjective HPI/CC On Admission Date Seen by Provider: Feb 16, 2019 Time Seen by Provider: 09:00 Subjective/Events-last exam White Count 2.8, Hematocrit 27, Creatinine 1.38 He did undergo a TYSON with cardioversion today, it was successful and he returned back to the unit Bringing CPAP from home to see if he can wear that Overall he will need to be rechecked since he is a two person assist but doubtful that a correction ewill be able to accommodate that Maximum assistance and dependent on health care DM reviewed Conferred with RN Checked meds and labs Review of Systems General: Fatigue Pulmonary: Dyspnea Cardiovascular: Edema Objective Exam Vital Signs Vital Signs Date Time Temp Pulse Resp B/P (MAP) Pulse Ox O2 Delivery O2 Flow Rate FiO2 02/16/19 20:21 75 111/63 (79) 02/16/19 17:31 36.4 20 99 Nasal Cannula 3.00 Capillary Refill : General Appearance: No Apparent Distress, WD/WN, Anxious, Chronically ill, Obese HEENT: PERRL/EOMI, Normal ENT Inspection, Pharynx Normal Neck: Full Range of Motion, Normal Inspection, Non Tender, Supple, Carotid Bruit Respiratory: Chest Non Tender, Lungs Clear, No Accessory Muscle Use, No Respiratory Distress, Decreased Breath Sounds Cardiovascular: Regular Rate, Rhythm, No Gallop, No JVD, No Murmur, Normal Peripheral Pulses Gastrointestinal: Normal Bowel Sounds, No Organomegaly, No Pulsatile Mass, Non Tender, Soft Back: Normal Inspection, No CVA Tenderness, No Vertebral Tenderness Extremity: Normal Capillary Refill, Normal Inspection, Normal Range of Motion, Non Tender, No Calf Tenderness, Pedal Edema (3+) Neurologic/Psychiatric: Alert, Oriented x3, No Motor/Sensory Deficits, Normal Mood/Affect, bilingual 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 FIM Transfers Therapy Code Descriptions/Definitions Functional [place] Measure: 0=Not Assessed/NA 4=Minimal Assistance 1=Total Assistance 5=Supervision or Setup 2=Maximal Assistance 6=Modified [place] 3=Moderate Assistance 7=Complete IndependenceSCALE: Activities may be completed with or without assistive devices. 0-Dlezpnoxll-lckrjny completes the activity by him/herself with no assistance from a helper. 5-Set-up or Clean-up Assistance-helper sets up or cleans up; patient completes activity. [place] assists only prior to or following the activity. 4-Supervision or Touching Assistance-helper provides verbal cues and/or touching/steadying and/or contact guard assistance as patient completes activity. Assistance may be provided throughout the activity or intermittently. 3-Partial/Moderate Assistance-helper does LESS THAN HALF the effort. [place] lifts, holds or supports trunk or limbs, but provides less than half the effort. 2-Substantial/Maximal Assistance-helper does MORE THAN HALF the effort. [place] lifts or holds trunk or limbs and provides more than half the effort. 3-Pnomhtbfr-ixdyrg does ALL the effort. Patient does none of the effort to complete the activity. Or, the assistance of 2 or more helpers is required for the patient to complete the activity. If activity was not attempted, code reason: 7-Patient Refused. 9-Not Applicable-not attempted and the patient did not perform the activity before the current illness, exacerbation or injury. 10-Not Attempted due to Environmental Limitations-(lack of equipment, weather restraints, etc.). 88-Not Attempted due to Medical Conditions or Safety Concerns. Roll Left to Right (QC): 3 (Demario) Sit to Lying (QC): 3 (modA) Sit to Stand (QC): 1 Chair/Zux-dd-Ggjqo Xfer(QC): 1 Car Transfer (QC): 88 Gait Training Does the Patient Walk?: No and Walking Goal IS indicated Walk 10 feet (QC): 88 Walk 50 ft with 2 Turns(QC): 88 Walk 150 ft (QC): 88 Walking 10ft/uneven surface-QC: 88 Wheelchair Training Does the Pt Use a Wheelchair?: Yes Distance: 100x2 Wheel 50 ft with 2 turns (QC): 3 (Demario for awareness) Wheel 150 ft (QC): 88 Type of Wheelchair: Manual Stair Training 1 Step (curb) (QC): 88 4 Steps (QC): 88 12 Steps (QC): 88 Balance Picking up an Object (QC): 88 ADL-Treatment Eating (QC): 6 (Pt reports having no difficulty opening containers and bringing food to his mouth.) Oral Hygiene (QC): 6 Bathing Location: L Arm, R Arm, L Upper Leg, R Upper Leg, L Lower Leg (including foot), R Lower Leg (including foot), Chest, Abdomen Shower/Bathe Self (QC): 2 Upper Body Dressing (QC): 5 Lower Body Dressing (QC): 1 On/Off Footwear (QC): 1 (Pt unable to reach feet in order to don/doff footwear. OT assisted with all parts of task. 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 Chronic anxiety PAF Anasarca CHF COPD OHS DM Poor venous access s/p PICC Plan: Monitor closely Monitor AF Appreciate Josseline Contreras and Miguel BRANDEN wraps Full code per patient request PICC line placement tolerated TYSON with cardioversion successful (1) Myopathy Status: Acute (2) Atrial fibrillation (3) Anasarca (4) Fair prognosis (5) Debility (6) Molina catheter in place (7) Acute on chronic respiratory failure with hypoxia Status: Acute (8) LUIGI treated with BiPAP Status: Chronic (9) CKD (chronic kidney disease) Status: Chronic (10) COPD (chronic obstructive pulmonary disease) (11) Diabetes mellitus with hyperglycemia Status: Chronic (12) Obesity hypoventilation syndrome Status: Chronic (13) Pulmonary HTN Status: Chronic (14) Pulmonary edema Status: Acute (15) CAD (coronary artery disease) Status: Chronic (16) DVT prophylaxis Status: Acute (17) Lymphedema (18) Hypoxia Status: Acute (19) Respiratory insufficiency (20) Hypercapnia Status: Acute (21) Obesity Status: Acute (22) HTN (hypertension) Status: Acute YARIEL BUI DO Feb 16, 2019 09:23 POS
--- NOTE | 2019-02-16 11:03 | Occupational Ther Daily Note ---
OT Current Status-Daily Note Subjective Pt alert, sitting in recliner. Pt agrees to therapy. No c/o at this time. Pt to have heart procedure to day. Blood noted in urine on floor after incontinence, reported to nrsg. Mental Status/Objective Patient Orientation: Person, Place, Time, Situation Attachments: IV, Oxygen (2L) ADL-Treatment Pt initially did not want shower though changed mind when made aware that he had been incontinent. Sit<-->stand lift used for all transfers. Pt transferred to transport shower chair then transported to large shower room. Pt able to complete shower using shower chair with cutout, hand held shower and long handle sponge for 90% of body, assist to cleanse buttocks. Assist to dry lower legs, buttocks, ovi area and under abdomen. Pt able to don/doff hospital gown by self, dependent for socks. After therapy, pt transferred back to bed, max A for bed mobility. Call light/phone in reach. All needs met in room. Therapy Code Descriptions/Definitions Functional [place] Measure: 0=Not Assessed/NA 4=Minimal Assistance 1=Total Assistance 5=Supervision or Setup 2=Maximal Assistance 6=Modified [place] 3=Moderate Assistance 7=Complete IndependenceSCALE: Activities may be completed with or without assistive devices. 8-Fuejltauku-mljuodi completes the activity by him/herself with no assistance from a helper. 5-Set-up or Clean-up Assistance-helper sets up or cleans up; patient completes activity. [place] assists only prior to or following the activity. 4-Supervision or Touching Assistance-helper provides verbal cues and/or touching/steadying and/or contact guard assistance as patient completes activity. Assistance may be provided throughout the activity or intermittently. 3-Partial/Moderate Assistance-helper does LESS THAN HALF the effort. [place] lifts, holds or supports trunk or limbs, but provides less than half the effort. 2-Substantial/Maximal Assistance-helper does MORE THAN HALF the effort. [place] lifts or holds trunk or limbs and provides more than half the effort. 4-Brtorapwj-wlelqo does ALL the effort. Patient does none of the effort to complete the activity. Or, the assistance of 2 or more helpers is required for the patient to complete the activity. If activity was not attempted, code reason: 7-Patient Refused. 9-Not Applicable-not attempted and the patient did not perform the activity before the current illness, exacerbation or injury. 10-Not Attempted due to Environmental Limitations-(lack of equipment, weather restraints, etc.). 88-Not Attempted due to Medical Conditions or Safety Concerns. Shower/Bathe Self (QC): 2 Footwear (QC) 1 OT Short Term Goals Short Term Goals Time Frame: Feb 25, 2019 Toileting hygiene: 2 Lower body dressin Putting on/taking off footwear: [address] Security Officer [address] Security Officer Goals Time Frame: Mar 11, 2019 Eating (QC): 6 Oral Hygiene (QC): 6 Toileting Hygiene (QC): 6 Shower/Bathe Self (QC): 6 Upper Body Dressing (QC): 6 Lower Body Dressing (QC): 6 On/Off Footwear (QC): 6 Additional Goals: 1-Demonstrate ADL Tasks, 2-Verbalize Understanding, 3- ImproveStrength/Johanna 1=Demonstrate adherence to instructed precautions during ADL tasks. 2=Patient will verbalize/demonstrate understanding of assistive devices/modifications for ADL. 3=Patient will improve strength/tolerance for activity to enable patient to perform ADL's. OT Education/Plan Problem List/Assessment Assessment: Decreased Activ Tolerance, Decreased UE Strength, Dependent Transfers, Impaired Bed Mobility, Impaired Coordination, Impaired Funct Balance, Impaired Self-Care Skills Discharge Recommendations Plan/Recommendations: Continue POC Treatment Plan/Plan of Care Patient would benefit from OT for education, treatment and training to promote independence in ADL's, mobility, safety and/or upper extremity function for ADL's. Plan of Care: ADL Retraining, Caregiver Training, Functional Mobility, Group Exercise/Act as Ind, UE Funct Exercise/Act Treatment Duration: Mar 11, 2019 Frequency: At least 5 of 7 days/Wk (IRF) Estimated Hrs Per Day: 1.5 hours per day Agreement: Yes Rehab Potential: Guarded Time/GCodes Start Time: 07:00 Stop Time: 08:00 Total Time Billed (hr/min): 60 Billed Treatment Time 1 visit-ADL 4 (60 min) TERRA SHAW Feb 16, 2019 11:03 POS
--- NOTE | 2019-02-16 11:26 | Cardiology Progress Note ---
Subjective Date Seen by Provider: Feb 16, 2019 Time Seen by Provider: 11:25 Subjective/Events-last exam patient is in bed. No new complaint, underwent cardioversion Review of Systems General: No Chills, No Night Sweats, No Fatigue, No Malaise, No Appetite, No Other HEENT: No Head Aches, No Visual Changes, No Eye Pain, No Ear Pain, No Dysphasia, No Sinus Congestion, No Post Nasal Drip, No Sore Throat, No Other Pulmonary: No Dyspnea, No Cough, No Pleuritic Chest Pain, No Other Cardiovascular: No: Chest Pain, Palpitations, Orthopnea, Paroxysmal Noc. Dyspnea, Edema, Lt Headedness, Other Objective-Cardiology Exam Last Set of Vital Signs Vital Signs 02/16/19 02/16/19 02/16/19 05:34 06:45 07:15 Temp 36.4 Pulse 75 Resp 18 B/P (MAP) 124/76 (92) Pulse Ox 95 O2 Delivery Nasal Cannula O2 Flow Rate 2.00 Capillary Refill : I&O Intake and Output 02/16/19 00:00 Intake Total 1850 ml Output Total 501 ml Balance 1349 ml Intake Oral 1850 ml Output Urine Total 501 ml Bladder Scan Volume Amount 314 ml 368 ml # Urine Diapers 1 # Bowel Movements 1 General: Alert, Oriented X3, Cooperative HEENT: Atraumatic, PERRLA Neck: Supple, No JVD, No Thyromegaly Lungs: Other (diminished breath sounds bibasilarly) Heart: Normal S1, Normal S2, No Murmurs, Other (tachycardic, irregular) Abdomen: Normal Bowel Sounds, Soft Extremities: Other (BLE edema with C/D/I evelina wraps) Skin: No Rashes, No Significant Lesion Neuro: Normal Speech, Cranial Nerves 3-12 NL Psych/Mental Status: Mental Status NL, Mood NL Results Lab Laboratory Tests 02/16/19 05:00 A/P-Cardiology Admission Diagnosis COPD CAD PAF CKD Assessment/Plan Status post repiratory failure in Dec 2018, multifactorial, obesity- hypoventilation with cor pulmonale, ac exac of COPD due to pneumonia, continues to improve. Chronic diastolic CHF, 2D Echo done 01/11/19 revealed LVEF 55-65%, left atrial dilatation, pulmonary hypertension with PA pressure 50-60 mmHg PAF w/ RVR, underwent electrical cardioversion and currently in sinus rhythm, still having multiple PTTs, I'll give IV Lopressor, continue to monitor, maintained on Lovenox Anemia, worsening, maintained on Lovenox. Will need EGD and colonoscopy prior to initiate oral anticoagulation. Marked, chronic leg edema with intermittent cellulitis CKD 3 and episodes of ac renal insuff due to diuretic therapy Coronary artery disease, cath of 2014 showed coronary ectasia with slow flow, no significant obstructive disease Hyperlipidemia, by history Diabetes mellitus II Clinical Quality Measures DVT/VTE Risk/Contraindication: Risk Factor Score Per Nursin RFS Level Per Nursing on Admit: 4+=Very High AMI SANTACRUZ MD Feb 16, 2019 11:26 POS
--- NOTE | 2019-02-16 11:33 | Physical Therapy Progress Note ---
Therapy Progress Note Pt off unit this morning for cardioversion; no PT rendered. TERRA WITT PT Feb 16, 2019 11:33 POS
[2019-02-16 13:34] VITALS: BP 119/77
[2019-02-16 14:45] VITALS: BP 104/61
[2019-02-16] MEDS: busPIRone 10 MG (BUSPAR) TAB PO SCH ×2 (15:22→20:22)
[2019-02-16] MEDS: hydrALAZINE (APRESOLINE) 25 MG TAB PO SCH ×2 (15:22→20:22)
[2019-02-16] MEDS: ASCORBIC ACID (VIT C) 500 MG TABLET PO SCH (15:22)
[2019-02-16] MEDS: LACTOBACILLUS ACIDOPHILUS (PROBIOTIC) CAPSULE PO SCH ×2 (15:22→20:22)
[2019-02-16] MEDS: DOCUSATE SODIUM 100 MG (COLACE) CAP PO SCH ×2 (15:23→20:22)
[2019-02-16] MEDS: meTOprolol TARTRATE 50 MG (LOPRESSOR) TAB PO SCH ×2 (15:23→20:22)
[2019-02-16] MEDS: POLYETHYLENE GLYCOL 17 GM (MIRALAX) PACK PO SCH ×2 (15:23→20:22)
[2019-02-16] MEDS: FOLIC ACID 1 MG TAB PO SCH (15:23)
[2019-02-16] MEDS: AMIODARONE 200 MG (CORDARONE) TAB PO SCH ×2 (15:23→20:22)
[2019-02-16] MEDS: PANTOPRAZOLE 40 MG (PROTONIX) TAB PO SCH (15:24)
[2019-02-16] MEDS: AZITHROMYCIN 250 MG TAB (ZITHROMAX) PO SCH (15:24)
[2019-02-16] MEDS: SILDENAFIL 20 MG (REVATIO) TAB NON-FORMULARY PO SCH ×3 (15:24→20:22)
[2019-02-16] MEDS: THEOPHYLLINE ER 400 MG TAB (THEO-24) PO SCH (15:24)
[2019-02-16 17:31] VITALS: BP 158/74
[2019-02-16 20:21] VITALS: BP 111/63
[2019-02-17] MEDS: ENOXAPARIN 40 MG/0.4 ML (LOVENOX) SYR SC SCH (05:01)
[2019-02-17] MEDS: CATHETER FLUSH 10 ML SYR IV SCH ×3 (05:02→21:20)
[2019-02-17] MEDS: inSUlin ASPART (NovoLOG) 1 UNIT/0.01 ML (CHARGE PER UNIT) SC SCH ×4 (05:36→21:19)
[2019-02-17 05:49] VITALS: BP 128/78
[2019-02-17] MEDS: MULTIVIT W/MINERALS TAB (THERAGRAN M) PO SCH (06:09)
[2019-02-17] MEDS: predniSONE 20 MG TAB PO SCH (06:09)
[2019-02-17 06:23] LABS: HEMOGLOBIN 8.1 G/DL (13.3-17.7); MEAN PLATELET VOLUME 9.8 FL (7.4-10.4); RED CELL DISTRIBUTION WIDTH 19.2 % (10.0-14.5); WHITE BLOOD COUNT 4.9 10^3/uL (4.3-11.0)
[2019-02-17 07:02] LABS: CALCIUM 8.4 MG/DL (8.5-10.1); CREATININE SERUM 1.4 MG/DL (0.60-1.30); MAGNESIUM 1.9 MG/DL (1.6-2.4); PHOSPHORUS 3.5 MG/DL (2.3-4.7)
--- NOTE | 2019-02-17 08:55 | Physical Therapy Daily Note ---
PT Daily Note-Current Subjective pt in therapy gym pre-tx with OT. 30 min of this session will be co-treat with OT secondary to the need of 2 skilled therapists to coordinate UE & LE for proper placement for sit <-> stand transfers. Appearance pt in bed post-tx with call light, phone, table in reach with all needs met at this time. Mental Status Patient Orientation: Person, Place, Time, Situation Attachments: Central Line (PICC), Oxygen (2L N/C) Transfers SCALE: Activities may be completed with or without assistive devices. 1-Viouwmpwno-sgytveb completes the activity by him/herself with no assistance from a helper. 5-Set-up or Clean-up Assistance-helper sets up or cleans up; patient completes activity. [place] assists only prior to or following the activity. 4-Supervision or Touching Assistance-helper provides verbal cues and/or touching/steadying and/or contact guard assistance as patient completes activity. Assistance may be provided throughout the activity or intermittently. 3-Partial/Moderate Assistance-helper does LESS THAN HALF the effort. [place] lifts, holds or supports trunk or limbs, but provides less than half the effort. 2-Substantial/Maximal Assistance-helper does MORE THAN HALF the effort. [place] lifts or holds trunk or limbs and provides more than half the effort. 6-Wdbsaovuc-uilctz does ALL the effort. Patient does none of the effort to compl ete the activity. Or, the assistance of 2 or more helpers is required for the patient to complete the activity. If activity was not attempted, code reason: 7-Patient Refused. 9-Not Applicable-not attempted and the patient did not perform the activity before the current illness, exacerbation or injury. 10-Not Attempted due to Environmental Limitations-(lack of equipment, weather restraints, etc.). 88-Not Attempted due to Medical Conditions or Safety Concerns. Sit to Lying (QC): 3 Chair/Yal-bw-Xrrhr Xfer(QC): 1 (sit to stand machine) Weight Bearing Full Weight Bearing Full Weight Bearing Gait Training Does the Patient Walk?: No and Walking Goal NOT indicated Wheelchair Training Does the Pt Use a Wheelchair?: Yes Wheel 50 ft with 2 turns (QC): 4 (SBA) Type of Wheelchair: Manual 100' Exercises Supine Ex: Ankle pumps, Quad Set, Glut sets Supine Reps: 30 (15 reps 2 sets) Seated Therapy Exercises: Sit to stand (5 attemps), Long arc quads, Hip flexion, Hip abd/add Seated Reps: 20 (10reps 2 sets) O2 went down to 88% with seated exercises, came back up shortly with rest and purse lip breathing. Treatments pt performed transfer training, wheel chair training, functional LE strengthening, bed mobility training, and education. PT assisted with LE placement and roles while OT assisted with UE placement and roles for sit to stand training. OT assisted with sitting balance while PT instructed and educated the pt on transfer techniques. Assessment Current Status: Fair Progress pt not able to obtain full standing during sit to stand attempts and only able to lift bottom out of WC for about 5 seconds with each attempt requiring maxAx2 for each attempt. Pt requires many breaks between attempts and exercises and during wheel chair mobility this date. Pt had bout of blood dripping from his PICC line from left UE, RN notified and dressed the area, Dr. Villagomez in for rounds and is aware of the bleeding. Pt fatigues quickly and reports he is still having difficulty sleeping and has been up since about 2am PT Short Term Goals Short Term Goals Time Frame: Feb 18, 2019 Roll Left & Right: 4 (SBA) Sit to lyin (Demario) Lying to sitting on side of be: 3 Sit to stand: 2 (maxA) Chair/hrb-mx-pjzmj transfer: 2 (maxA) PT Alf Goals Alf Goals PT Alf Goals Time Frame: Mar 04, 2019 Roll Left & Right (QC): 6 Sit to Lying (QC): 4 (SBA) Lying-Sitting on Side/Bed(QC): 4 (SBA) Sit to Stand (QC): 3 (Demaroi) Chair/Els-oe-Govyt Xfer(QC): 3 (Demario) Toilet Transfer (QC): 3 (Demario) Car Transfer (QC): 3 (Demario) Does the Patient Walk: No and Walking Goal IS indicated Walk 10 feet (QC): 3 (Demario) Walk 50ft with 2 Turns (QC): 3 (Demario) Walk 150 ft (QC): 88 Walking 10ft on Uneven Surface: 88 1 Step (curb) (QC): 3 (modA) 4 Steps (QC): 88 12 Steps (QC): 88 Picking up an Object (QC): 88 Does the Pt use WC or Scooter?: Yes Wheel 50 feet with 2 turns (QC: 6 Type: Manual Wheel 150 feet: 6 Type: Manual PT Plan Problem List Problem List: Activity Tolerance, Functional Strength, Safety, Balance, Gait, Transfer, Bed Mobility, ROM Treatment/Plan Treatment Plan: Continue Plan of Care Treatment Plan: Bed Mobility, Concurrent Therapy, Education, Functional Activity Johanna, Functional Strength, Group Therapy, Gait, Safety, Therapeutic Exercise, Transfers Treatment Duration: Mar 04, 2019 Frequency: At least 5 of 7 days/Wk (IRF) Estimated Hrs Per Day: 1.5 hours per day Patient and/or Family Agrees t: Yes Safety Risks/Education Patient Education: Transfer Techniques, Correct Positioning, W/C Management, Safety Issues Teaching Recipient: Patient Teaching Methods: Demonstration, Discussion Response to Teaching: Return Demonstration, Reinforcement Needed Time/GCodes Time In: 0800 Time Out: 0900 Total Billed Treatment Time: 60 Total Billed Treatment 1 visit EX 30' FA 15' WC 15' MARINO VEGA PT Feb 17, 2019 08:55 POS
[2019-02-17] MEDS ORDERED: NYSTATIN OINTMENT 30 GM TUBE TOP PRN (09:15)
--- NOTE | 2019-02-17 09:33 | PM&R Progress Note ---
Subjective HPI/CC On Admission Date Seen by Provider: Feb 17, 2019 Time Seen by Provider: 08:15 Subjective/Events-last exam Anxiety is improved. Using oxygen at night. is bringing in the borrowed CPAP machine. TYSON with cardioversion was successful and that seems to have helped his SOB. Bowel movement yesterday. Dr. Ramirez will see him due to hematuria, he did have the bryson catheter in for a long time. DM reviewed Conferred with RN Checked meds and labs Review of Systems General: Fatigue Pulmonary: Dyspnea Cardiovascular: Edema Objective Exam Vital Signs Vital Signs Date Time Temp Pulse Resp B/P (MAP) Pulse Ox O2 Delivery O2 Flow Rate FiO2 02/18/19 00:27 63 02/17/19 20:30 Nasal Cannula 2.00 02/17/19 18:24 97 02/17/19 16:11 36.5 16 118/72 (87) Capillary Refill : General Appearance: No Apparent Distress, WD/WN, Anxious, Chronically ill, Obese HEENT: PERRL/EOMI, Normal ENT Inspection, Pharynx Normal Neck: Full Range of Motion, Normal Inspection, Non Tender, Supple, Carotid Bruit Respiratory: Chest Non Tender, Lungs Clear, No Accessory Muscle Use, No Respiratory Distress, Decreased Breath Sounds Cardiovascular: Regular Rate, Rhythm, No Gallop, No JVD, No Murmur, Normal Peripheral Pulses Gastrointestinal: Normal Bowel Sounds, No Organomegaly, No Pulsatile Mass, Non Tender, Soft Back: Normal Inspection, No CVA Tenderness, No Vertebral Tenderness Extremity: Normal Capillary Refill, Normal Inspection, Normal Range of Motion, Non Tender, No Calf Tenderness, Pedal Edema Neurologic/Psychiatric: Alert, Oriented x3, No Motor/Sensory Deficits, Normal Mood/Affect, med peds II-XII Norm as Tested Skin: Normal Color, Warm/Dry Lymphatic: No Adenopathy Results/Procedures Lab Laboratory Tests 02/17/19 06:15 Patient resulted labs reviewed. FIM Transfers Therapy Code Descriptions/Definitions Functional [place] Measure: 0=Not Assessed/NA 4=Minimal Assistance 1=Total Assistance 5=Supervision or Setup 2=Maximal Assistance 6=Modified [place] 3=Moderate Assistance 7=Complete IndependenceSCALE: Activities may be completed with or without assistive devices. 1-Rrpnwaatqz-ixfkswg completes the activity by him/herself with no assistance from a helper. 5-Set-up or Clean-up Assistance-helper sets up or cleans up; patient completes activity. [place] assists only prior to or following the activity. 4-Supervision or Touching Assistance-helper provides verbal cues and/or touching/steadying and/or contact guard assistance as patient completes activity. Assistance may be provided throughout the activity or intermittently. 3-Partial/Moderate Assistance-helper does LESS THAN HALF the effort. [place] lifts, holds or supports trunk or limbs, but provides less than half the effort. 2-Substantial/Maximal Assistance-helper does MORE THAN HALF the effort. [place] lifts or holds trunk or limbs and provides more than half the effort. 9-Prnlgkmsf-vhecyr does ALL the effort. Patient does none of the effort to complete the activity. Or, the assistance of 2 or more helpers is required for the patient to complete the activity. If activity was not attempted, code reason: 7-Patient Refused. 9-Not Applicable-not attempted and the patient did not perform the activity before the current illness, exacerbation or injury. 10-Not Attempted due to Environmental Limitations-(lack of equipment, weather restraints, etc.). 88-Not Attempted due to Medical Conditions or Safety Concerns. Roll Left to Right (QC): 3 (Demario) Sit to Lying (QC): 3 Sit to Stand (QC): 1 Chair/Njp-ux-Howvp Xfer(QC): 1 (sit to stand machine) Car Transfer (QC): 88 Gait Training Does the Patient Walk?: No and Walking Goal NOT indicated Walk 10 feet (QC): 88 Walk 50 ft with 2 Turns(QC): 88 Walk 150 ft (QC): 88 Walking 10ft/uneven surface-QC: 88 Wheelchair Training Does the Pt Use a Wheelchair?: Yes Distance: 100x2 Wheel 50 ft with 2 turns (QC): 4 (SBA) Wheel 150 ft (QC): 88 Type of Wheelchair: Manual Stair Training 1 Step (curb) (QC): 88 4 Steps (QC): 88 12 Steps (QC): 88 Balance Picking up an Object (QC): 88 ADL-Treatment Eating (QC): 6 (Pt reports having no difficulty opening containers and bringing food to his mouth.) Oral Hygiene (QC): 6 Bathing Location: L Arm, R Arm, L Upper Leg, R Upper Leg, L Lower Leg (including foot), R Lower Leg (including foot), Chest, Abdomen Shower/Bathe Self (QC): 2 Upper Body Dressing (QC): 5 Lower Body Dressing (QC): 1 On/Off Footwear (QC): 1 (Pt unable to reach feet in order to don/doff footwear. OT assisted with all parts of task. 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 Chronic anxiety PAF Anasarca CHF COPD OHS DM Poor venous access s/p PICC Plan: Monitor closely Monitor AF Appreciate Josseline Contreras and Miguel OTERO wralex Full code per patient request PICC line placement tolerated TYSON with cardioversion successful (1) Myopathy Status: Acute (2) Atrial fibrillation (3) Anasarca (4) Fair prognosis (5) Debility (6) Bryson catheter in place (7) Acute on chronic respiratory failure with hypoxia Status: Acute (8) LUIGI treated with BiPAP Status: Chronic (9) CKD (chronic kidney disease) Status: Chronic (10) COPD (chronic obstructive pulmonary disease) (11) Diabetes mellitus with hyperglycemia Status: Chronic (12) Obesity hypoventilation syndrome Status: Chronic (13) Pulmonary HTN Status: Chronic (14) Pulmonary edema Status: Acute (15) CAD (coronary artery disease) Status: Chronic (16) DVT prophylaxis Status: Acute (17) Lymphedema (18) Hypoxia Status: Acute (19) Respiratory insufficiency (20) Hypercapnia Status: Acute (21) Obesity Status: Acute (22) HTN (hypertension) Status: Acute YARILE BUI DO Feb 17, 2019 09:33 POS
[2019-02-17] MEDS: AMIODARONE 200 MG (CORDARONE) TAB PO SCH ×2 (09:58→20:42)
[2019-02-17] MEDS: DOCUSATE SODIUM 100 MG (COLACE) CAP PO SCH ×2 (09:58→21:16)
[2019-02-17] MEDS: hydrALAZINE (APRESOLINE) 25 MG TAB PO SCH ×2 (09:58→20:42)
[2019-02-17] MEDS: LACTOBACILLUS ACIDOPHILUS (PROBIOTIC) CAPSULE PO SCH ×2 (09:59→20:42)
[2019-02-17] MEDS: busPIRone 10 MG (BUSPAR) TAB PO SCH ×2 (09:59→20:42)
[2019-02-17] MEDS: FOLIC ACID 1 MG TAB PO SCH (09:59)
[2019-02-17] MEDS: meTOprolol TARTRATE 50 MG (LOPRESSOR) TAB PO SCH ×2 (09:59→20:42)
[2019-02-17] MEDS: SENNA W/DOCUSATE (SENOKOT S) TABLET PO SCH ×2 (09:59→21:16)
[2019-02-17] MEDS: PANTOPRAZOLE 40 MG (PROTONIX) TAB PO SCH (09:59)
[2019-02-17] MEDS: ASCORBIC ACID (VIT C) 500 MG TABLET PO SCH (10:00)
--- NOTE | 2019-02-17 10:00 | Cardiology Progress Note ---
Subjective Date Seen by Provider: Feb 17, 2019 Time Seen by Provider: 08:10 Subjective/Events-last exam Patient is sitting up in chair, no new complaints. Reports fatigue. Review of Systems General: No Chills, No Night Sweats, No Fatigue, No Malaise, No Appetite, No Other HEENT: No Head Aches, No Visual Changes, No Eye Pain, No Ear Pain, No Dysphasia, No Sinus Congestion, No Post Nasal Drip, No Sore Throat, No Other Pulmonary: No Dyspnea, No Cough, No Pleuritic Chest Pain, No Other Cardiovascular: No: Chest Pain, Palpitations, Orthopnea, Paroxysmal Noc. Dyspnea, Edema, Lt Headedness, Other Objective-Cardiology Exam Last Set of Vital Signs Vital Signs 02/17/19 16:11 Temp 36.5 Pulse 73 Resp 16 B/P (MAP) 118/72 (87) Pulse Ox 98 O2 Delivery Nasal Cannula O2 Flow Rate 2.00 Capillary Refill : I&O Intake and Output 02/17/19 00:00 Intake Total 240 ml Output Total 500 ml Balance -260 ml Intake Oral 240 ml Output Urine Total 500 ml # Voids 3 # Bowel Movements 1 General: Alert, Oriented X3, Cooperative HEENT: Atraumatic, PERRLA Neck: Supple, No JVD, No Thyromegaly Lungs: Other (diminished breath sounds bibasilarly) Heart: Normal S1, Normal S2, No Murmurs, Other (tachycardic) Abdomen: Normal Bowel Sounds, Soft Extremities: Other (BLE edema with C/D/I evelina wraps) Skin: No Rashes, No Significant Lesion Neuro: Normal Speech, Cranial Nerves 3-12 NL Psych/Mental Status: Mental Status NL, Mood NL Results Lab Laboratory Tests 02/17/19 06:15 A/P-Cardiology Admission Diagnosis COPD CAD PAF CKD Assessment/Plan Status post repiratory failure in Dec 2018, multifactorial, obesity- hypoventilation with cor pulmonale, ac exac of COPD due to pneumonia, continues to improve. Chronic diastolic CHF, 2D Echo done 01/11/19 revealed LVEF 55-65%, left atrial dilatation, pulmonary hypertension with PA pressure 50-60 mmHg PAF w/ RVR, underwent successful electrical cardioversion yesterday. Maintained on Lopressor, Amiodarone. I will d/c Lovenox and start Eliquis. Anemia, continue to monitor. Started on Eliquis this morning. Will need EGD/co lonoscopy. Marked, chronic leg edema with intermittent cellulitis CKD 3 and episodes of ac renal insuff due to diuretic therapy Coronary artery disease, cath of 2014 showed coronary ectasia with slow flow, no significant obstructive disease Hyperlipidemia, by history Diabetes mellitus II Patient was seen and evaluated with Cyndie, examination performed, management plan was discussed, agree with the current scribed note, I made few changes to the note using Italic font Patient is sitting in a chair, complaining of fatigue On examination lungs were clear to auscultation, heart is regular Continue on current medication and started on Eliquis and monitor blood pressure and heart rate Clinical Quality Measures DVT/VTE Risk/Contraindication: Risk Factor Score Per Nursin RFS Level Per Nursing on Admit: 4+=Very High CYNDIE SHELDON Feb 17, 2019 10:00 AMI HINSON MD Feb 17, 2019 16:33 POS
[2019-02-17] MEDS: THEOPHYLLINE ER 400 MG TAB (THEO-24) PO SCH (10:01)
[2019-02-17] MEDS: SILDENAFIL 20 MG (REVATIO) TAB NON-FORMULARY PO SCH ×3 (10:01→21:19)
[2019-02-17] MEDS ORDERED: APIXABAN 5 MG (ELIQUIS) TABLET PO NR (10:30)
[2019-02-17] MEDS: POLYETHYLENE GLYCOL 17 GM (MIRALAX) PACK PO SCH ×2 (10:36→21:16)
--- NOTE | 2019-02-17 11:56 | NUR ---
Weekly Team Conference Met with patient to discuss weekly team conference and the team's recommendation to recheck progress next Thursday. Patient verbalizes understanding and is in agreement with this plan. Patient reports he has the most trouble with his legs from the knees down to the ankles. Patient reports using continuous oxygen at home prior to this admission. Patient states he is interested in portable oxygen if he qualifies. Patient reports he is unable to sleep in the hospital bed, and usually sleeps in the recliner. Discussed this with patient and offered to find a different bed for patient to try. Patient is open to this and is willing to try a different bed. This worker will check with housekeeper child care regarding availability of beds. Discussed discharge options with patient. Patient's goal is to return home; however, he does report that his is not able to assist in his care and that they do not have a lot of support available. Discussed with patient the possibility of SNF placement, if needed, short term if he is not able to safely return home. Patient is open to this option if warranted.
--- NOTE | 2019-02-17 12:55 | CONSULTATION REPORT ---
DATE OF SERVICE: 02/17/2019 ATTENDING PHYSICIAN: Dr. Villagomez. SUMMARY: After reviewing the patient's records, interviewing him and examining him, this is a 63-year-old man with multiple medical problems who developed gross hematuria more than once and gradually cleared up. Not associated with voiding symptoms, not associated with clots. The patient was on Lovenox and then he had the cardiac procedure and was switched to Eliquis 5 mg b.i.d. He never had hematuria at home and he quit smoking 30 years ago. I could not find the urinalysis in the chart. His creatinine is 1.4 and his eGFR is 51. His H and H is stable at 2.77 and 8.1, platelets 209,000. The patient was having lunch, so I did not disturb him for examination at this point. He does not have any trouble passing urine at home or here. His postvoid residual was 0 by bladder scan. IMPRESSION: Gross hematuria. PLAN: 1. Three-glass test for the urine. 2. Noncontrast CT scan of the abdomen and pelvis. 3. Urinalysis and culture if indicated. 4. Sometimes we will perform a flexible cystoscopy under local at bedside. The plan was fully explained to the patient. I told him I would examine him locally the genitalia and prostate at the time of the cystoscopy in order not to disturb his lunch. Job ID: [id number] DocumentID: [id number] Dictated Date: 02/17/2019 12:15:22 Operational Risk Consultant Date: 02/17/2019 12:54:28 Dictated By: MARGARITO OWUSU MD
[2019-02-17] MEDS: ALPRAZolam 0.25 MG (XANAX) TAB PO PRN (13:19)
--- NOTE | 2019-02-17 13:20 | NUR ---
Pt states that he has to have Xanax before going down for the CT scan that has been ordered by Dr. Ramirez.
--- NOTE | 2019-02-17 13:25 | NUR ---
Pt now refuses to go down for CT scan. States that he can't lay down, or be in the bed long enough to go down for it. After pt was transferred per sit to stand from recliner to bed to transport down. Addendum: 02/17/19 at 1327 by GIANCARLO ZENG RN Pt was inct of urine on floor during transfer
--- NOTE | 2019-02-17 14:08 | Occupational Ther Daily Note ---
OT Current Status-Daily Note Subjective Pt alert, sitting in recliner. Pt states that he feels better today. Pt is anxious about how much mobility that he has lost and wants to be able to walk again. Mental Status/Objective Patient Orientation: Person, Place, Time, Situation Attachments: IV, Oxygen, Telemetry ADL-Treatment All transfers using sit <--> stand. Pt propelled w/c to bathroom to complete own oral hygiene. Pt then propelled w/c to therapy gym to complete UE exercises to increase strength and activity tolerance for daily functional tasks. Arm bike for 10 min at minimal resistance with 3 lengthy recovery breaks. Pt then completed UE exercises in all planes using 2# hand wts, 1 set 10 reps. OT/PT co-treat for 30 min ([id number]) for skilled instruction and technique when standing pt in parallel bars due to pt's decreased standing ability and mobility, max A x2, see PT note. PT took over care of pt in therapy gym. All needs met in room. Therapy Code Descriptions/Definitions Functional [place] Measure: 0=Not Assessed/NA 4=Minimal Assistance 1=Total Assistance 5=Supervision or Setup 2=Maximal Assistance 6=Modified [place] 3=Moderate Assistance 7=Complete IndependenceSCALE: Activities may be completed with or without assistive devices. 6-Wipxdzrmki-mmlgkaf completes the activity by him/herself with no assistance from a helper. 5-Set-up or Clean-up Assistance-helper sets up or cleans up; patient completes activity. [place] assists only prior to or following the activity. 4-Supervision or Touching Assistance-helper provides verbal cues and/or touching/steadying and/or contact guard assistance as patient completes activity. Assistance may be provided throughout the activity or intermittently. 3-Partial/Moderate Assistance-helper does LESS THAN HALF the effort. [place] lifts, holds or supports trunk or limbs, but provides less than half the effort. 2-Substantial/Maximal Assistance-helper does MORE THAN HALF the effort. [place] lifts or holds trunk or limbs and provides more than half the effort. 4-Lwlcpzmem-bobnfo does ALL the effort. Patient does none of the effort to complete the activity. Or, the assistance of 2 or more helpers is required for the patient to complete the activity. If activity was not attempted, code reason: 7-Patient Refused. 9-Not Applicable-not attempted and the patient did not perform the activity before the current illness, exacerbation or injury. 10-Not Attempted due to Environmental Limitations-(lack of equipment, weather restraints, etc.). 88-Not Attempted due to Medical Conditions or Safety Concerns. OT Short Term Goals Short Term Goals Time Frame: Feb 25, 2019 Toileting hygiene: 2 Lower body dressin Putting on/taking off footwear: 2 OT Shelter Goals Shelter Goals Time Frame: Mar 11, 2019 Eating (QC): 6 Oral Hygiene (QC): 6 Toileting Hygiene (QC): 6 Shower/Bathe Self (QC): 6 Upper Body Dressing (QC): 6 Lower Body Dressing (QC): 6 On/Off Footwear (QC): 6 Additional Goals: 1-Demonstrate ADL Tasks, 2-Verbalize Understanding, 3- ImproveStrength/Johanna 1=Demonstrate adherence to instructed precautions during ADL tasks. 2=Patient will verbalize/demonstrate understanding of assistive devices/modifications for ADL. 3=Patient will improve strength/tolerance for activity to enable patient to perform ADL's. OT Education/Plan Problem List/Assessment Assessment: Decreased Activ Tolerance, Decreased UE Strength, Dependent Transfers, Impaired Bed Mobility, Impaired Coordination, Impaired Funct Balance, Impaired Self-Care Skills, Restricted Funct UE ROM Discharge Recommendations Plan/Recommendations: Continue POC Treatment Plan/Plan of Care Patient would benefit from OT for education, treatment and training to promote independence in ADL's, mobility, safety and/or upper extremity function for ADL's. Plan of Care: ADL Retraining, Caregiver Training, Functional Mobility, Group Exercise/Act as Ind, UE Funct Exercise/Act Treatment Duration: Mar 11, 2019 Frequency: At least 5 of 7 days/Wk (IRF) Estimated Hrs Per Day: 1.5 hours per day Agreement: Yes Rehab Potential: Guarded Time/GCodes Start Time: 07:00 Stop Time: 08:30 Total Time Billed (hr/min): 90 Billed Treatment Time 1 visit-ADL 3 (45 min) FA 3 (45 min) TERRA SHAW Feb 17, 2019 14:07 POS
--- NOTE | 2019-02-17 14:18 | NUR ---
Bariatric bed placed in pt's room for pt to use
--- NOTE | 2019-02-17 14:34 | Physical Therapy Daily Note ---
PT Daily Note-Current Subjective Pt agreeable to PT session. Pain Numeric Pain Scale: 0-No Pain Appearance Pt sitting up in recliner upon arrival and at end of session with family in room, call light, phone and bedside table within reach Mental Status Patient Orientation: Person, Place, Eyes Open, Situation Attachments: [place]ine Lock, Oxygen unable to recall month or day of week but able to recall year correctly Transfers SCALE: Activities may be completed with or without assistive devices. 8-Fsoswqtjbp-qfnbbwt completes the activity by him/herself with no assistance from a helper. 5-Set-up or Clean-up Assistance-helper sets up or cleans up; patient completes activity. [place] assists only prior to or following the activity. 4-Supervision or Touching Assistance-helper provides verbal cues and/or touching/steadying and/or contact guard assistance as patient completes activity. Assistance may be provided throughout the activity or intermittently. 3-Partial/Moderate Assistance-helper does LESS THAN HALF the effort. [place] lifts, holds or supports trunk or limbs, but provides less than half the effort. 2-Substantial/Maximal Assistance-helper does MORE THAN HALF the effort. [place] lifts or holds trunk or limbs and provides more than half the effort. 1-Fmenoiyqx-dclfgo does ALL the effort. Patient does none of the effort to complete the activity. Or, the assistance of 2 or more helpers is required for the patient to complete the activity. If activity was not attempted, code reason: 7-Patient Refused. 9-Not Applicable-not attempted and the patient did not perform the activity before the current illness, exacerbation or injury. 10-Not Attempted due to Environmental Limitations-(lack of equipment, weather restraints, etc.). 88-Not Attempted due to Medical Conditions or Safety Concerns. Weight Bearing Full Weight Bearing Full Weight Bearing Exercises Supine Ex: Ankle pumps (50), Heel Slides (AAROM 2x10), Resisted flex/ext (RLE x6, x4. LLE x10), Straight leg raise (AAROM 2x10), Hip abd/add (2 x10) Supine Reps: 20 (in recliner with LE's elevated, (+) hip IR/ER 2x10) Seated Therapy Exercises: Long arc quads (inst slow and controlled x5, RLE painful in calf), Chair press-ups (x5, x2 inst in breath techniques and not to hold breath), Hip flexion, Hamstring Curls (x10 with recliner leg rest for resist), Reaching activity (x3), Hip abd/add (2x10) fatigue with LE exercises and reaching activity Treatments education, safety, strength, sitting balance Assessment pt with report of pain L calf with LAQ and ankle DF, notified pt's nurse PT Short Term Goals Short Term Goals Time Frame: Feb 18, 2019 Roll Left & Right: 4 (SBA) Sit to lyin (Demario) Lying to sitting on side of be: 3 Sit to stand: 2 (maxA) Chair/jvq-ku-vdzvv transfer: 2 (maxA) PT Director Validation Goals Mcc Goals PT Director Validation Goals Time Frame: Mar 04, 2019 Roll Left & Right (QC): 6 Sit to Lying (QC): 4 (SBA) Lying-Sitting on Side/Bed(QC): 4 (SBA) Sit to Stand (QC): 3 (Demario) Chair/Mjv-sj-Sadul Xfer(QC): 3 (Demario) Toilet Transfer (QC): 3 (Demario) Car Transfer (QC): 3 (Demario) Does the Patient Walk: No and Walking Goal IS indicated Walk 10 feet (QC): 3 (Demario) Walk 50ft with 2 Turns (QC): 3 (Demario) Walk 150 ft (QC): 88 Walking 10ft on Uneven Surface: 88 1 Step (curb) (QC): 3 (modA) 4 Steps (QC): 88 12 Steps (QC): 88 Picking up an Object (QC): 88 Does the Pt use WC or Scooter?: Yes Wheel 50 feet with 2 turns (QC: 6 Type: Manual Wheel 150 feet: 6 Type: Manual PT Plan Treatment/Plan Treatment Plan: Continue Plan of Care Treatment Plan: Bed Mobility, Concurrent Therapy, Education, Functional Activity Johanna, Functional Strength, Group Therapy, Gait, Safety, Therapeutic Exercise, Transfers Treatment Duration: Mar 04, 2019 Frequency: At least 5 of 7 days/Wk (IRF) Estimated Hrs Per Day: 1.5 hours per day Patient and/or Family Agrees t: Yes Safety Risks/Education Patient Education: Safety Issues Teaching Recipient: Patient, Family Teaching Methods: Discussion Response to Teaching: Verbalize Understanding Time/GCodes Time In: 1420 Time Out: 1453 Total Billed Treatment Time: 33 Total Billed Treatment 1 visit, EX x33 min ERIKA FARRAR AIRFIELD MANAGER Feb 17, 2019 14:34 POS
[2019-02-17] MEDS: RT-ALBUTEROL/IPRATROPIUM 3 ML (DUONEB) VIAL INH SCH ×2 (15:05→18:21)
[2019-02-17 16:11] VITALS: BP 118/72
[2019-02-17] MEDS: RT-ADVAIR HFA 115/21 MCG PER PUFF IH SCH ×2 (18:05→18:21)
[2019-02-17] MEDS: APIXABAN 5 MG (ELIQUIS) TABLET PO SCH (20:42)
[2019-02-18] MEDS: predniSONE 20 MG TAB PO SCH (05:04)
[2019-02-18] MEDS: MULTIVIT W/MINERALS TAB (THERAGRAN M) PO SCH (05:04)
[2019-02-18 05:07] LABS: HEMOGLOBIN 8.3 G/DL (13.3-17.7); MEAN PLATELET VOLUME 8.9 FL (7.4-10.4); RED CELL DISTRIBUTION WIDTH 19.1 % (10.0-14.5); WHITE BLOOD COUNT 5.1 10^3/uL (4.3-11.0)
[2019-02-18] MEDS: inSUlin ASPART (NovoLOG) 1 UNIT/0.01 ML (CHARGE PER UNIT) SC SCH ×4 (05:08→20:30)
[2019-02-18] MEDS: CATHETER FLUSH 10 ML SYR IV SCH ×3 (05:10→20:22)
[2019-02-18 05:26] LABS: CALCIUM 8.8 MG/DL (8.5-10.1); CREATININE SERUM 1.38 MG/DL (0.60-1.30); POTASSIUM 3.9 MMOL/L (3.6-5.0)
[2019-02-18 05:52] VITALS: BP 138/78
--- NOTE | 2019-02-18 07:22 | Pulmonary Progress Note ---
Subjective Time Seen by a Provider: 07:21 Subjective/Events-last exam PT complains of weakness however is doing better. Sepsis Event Evaluation Height, Weight, BMI Height: 5'11" Weight: 260lbs. 0.0oz. [id number]; 53.40 BMI Method:Stated Exam Exam Vital Signs Date Time Temp Pulse Resp B/P (MAP) Pulse Ox O2 Delivery O2 Flow Rate FiO2 02/18/19 05:52 36.2 63 16 138/78 (98) 100 Nasal Cannula 2.00 02/18/19 00:27 63 02/17/19 20:30 Nasal Cannula 2.00 02/17/19 18:50 90 02/17/19 18:24 97 Nasal Cannula 2.00 02/17/19 18:21 97 Nasal Cannula 02/17/19 16:11 36.5 73 16 118/72 (87) 98 Nasal Cannula 2.00 02/17/19 15:06 98 Nasal Cannula 2.00 02/17/19 12:10 76 02/17/19 08:24 Nasal Cannula 2.00 I & O 02/18/19 07:00 Intake Total 1450 ml Output Total 950 ml Balance 500 ml Height & Weight Height: 5'11" Weight: 260lbs. 0.0oz. 117.056144vi; 53.40 BMI Method:Stated General Appearance: No Apparent Distress, WD/WN, Anxious, Chronically ill, Obese HEENT: PERRL/EOMI, Normal ENT Inspection, Pharynx Normal Neck: Full Range of Motion, Normal Inspection, Non Tender, Supple, Carotid Bruit Respiratory: Chest Non Tender, Lungs Clear, No Accessory Muscle Use, No Respiratory Distress, Decreased Breath Sounds Cardiovascular: Regular Rate, Rhythm, No Gallop, No JVD, No Murmur, Normal Peripheral Pulses Extremity: Normal Capillary Refill, Normal Inspection, Normal Range of Motion, Non Tender, No Calf Tenderness, Pedal Edema Neurologic/Psychiatric: Alert, Oriented x3, No Motor/Sensory Deficits, Normal Mood/Affect, joint special operations II-XII Norm as Tested Skin: Normal Color, Warm/Dry Lymphatic: No Adenopathy Results Lab Laboratory Tests 02/17/19 06:15 02/18/19 05:00 Assessment/Plan Assessment/Plan Chronic respiratory failure Severe oxygen dependent COPD -SVNS, adivair -02 -CXR reviewed Morbid obesity with OHS -Home vent to mask -Continue Home vent to mask QHS ECHO EF 55-65% CKD III -Monitor DEJA SMITH DO Feb 18, 2019 07:22 POS
[2019-02-18] MEDS: RT-ALBUTEROL/IPRATROPIUM 3 ML (DUONEB) VIAL INH SCH ×4 (07:44→20:01)
[2019-02-18] MEDS: RT-ADVAIR HFA 115/21 MCG PER PUFF IH SCH ×2 (07:44→20:01)
--- NOTE | 2019-02-18 08:20 | Occupational Ther Daily Note ---
OT Current Status-Daily Note Subjective Pt alert, sitting in recliner. Pt is anxious that he is not sleeping and that he is supposed to have and MRI today. Pt agrees to therapy. Mental Status/Objective Patient Orientation: Person, Place, Time, Situation ADL-Treatment Pt declines shower but agrees to sponge bath in recliner. Pt is able to complete upper body bathing and change hospital gown. Assist to cleanse under a bdomen, open area noted in crease reported to nrsg. Using sit <--> stand lift for all transfers. Using sit to stand lift to cleanse pt's buttocks effectively. Pt takes increased time to complete all tasks due to increased fatigue from not sleeping and anxiety. Pt propelled w/c to therapy gym with frequent recovery breaks. Pt took over care from OT in therapy gym. All needs met in room. Therapy Code Descriptions/Definitions Functional [place] Measure: 0=Not Assessed/NA 4=Minimal Assistance 1=Total Assistance 5=Supervision or Setup 2=Maximal Assistance 6=Modified [place] 3=Moderate Assistance 7=Complete IndependenceSCALE: Activities may be completed with or without assistive devices. 4-Pfggldbfvs-imnzbre completes the activity by him/herself with no assistance from a helper. 5-Set-up or Clean-up Assistance-helper sets up or cleans up; patient completes activity. [place] assists only prior to or following the activity. 4-Supervision or Touching Assistance-helper provides verbal cues and/or touching/steadying and/or contact guard assistance as patient completes activity. Assistance may be provided throughout the activity or intermittently. 3-Partial/Moderate Assistance-helper does LESS THAN HALF the effort. [place] lifts, holds or supports trunk or limbs, but provides less than half the effort. 2-Substantial/Maximal Assistance-helper does MORE THAN HALF the effort. [place] lifts or holds trunk or limbs and provides more than half the effort. 8-Mclsafubf-ctpbyu does ALL the effort. Patient does none of the effort to c omplete the activity. Or, the assistance of 2 or more helpers is required for the patient to complete the activity. If activity was not attempted, code reason: 7-Patient Refused. 9-Not Applicable-not attempted and the patient did not perform the activity before the current illness, exacerbation or injury. 10-Not Attempted due to Environmental Limitations-(lack of equipment, weather restraints, etc.). 88-Not Attempted due to Medical Conditions or Safety Concerns. Eating (QC): 6 (Pt demonstrates ability to complete meal set up and uses regular utensils to eat.) Oral Hygiene (QC): 7 Shower/Bathe Self (QC): 1 Lower Body Dressing (QC): 1 OT Short Term Goals Short Term Goals Time Frame: Feb 25, 2019 Toileting hygiene: 2 Lower body dressin Putting on/taking off footwear: 2 OT Clinical Admissions Manager Goals Clinical Admissions Manager Goals Time Frame: Mar 11, 2019 Eating (QC): 6 Oral Hygiene (QC): 6 Toileting Hygiene (QC): 6 Shower/Bathe Self (QC): 6 Upper Body Dressing (QC): 6 Lower Body Dressing (QC): 6 On/Off Footwear (QC): 6 Additional Goals: 1-Demonstrate ADL Tasks, 2-Verbalize Understanding, 3- ImproveStrength/Johanna 1=Demonstrate adherence to instructed precautions during ADL tasks. 2=Patient will verbalize/demonstrate understanding of assistive d evices/modifications for ADL. 3=Patient will improve strength/tolerance for activity to enable patient to perform ADL's. OT Education/Plan Problem List/Assessment Assessment: Decreased Activ Tolerance, Decreased UE Strength, Dependent Transfers, Impaired Self-Care Skills Discharge Recommendations Plan/Recommendations: Continue POC Treatment Plan/Plan of Care Patient would benefit from OT for education, treatment and training to promote independence in ADL's, mobility, safety and/or upper extremity function for ADL's. Plan of Care: ADL Retraining, Caregiver Training, Functional Mobility, Group Exercise/Act as Ind, UE Funct Exercise/Act Treatment Duration: Mar 11, 2019 Frequency: At least 5 of 7 days/Wk (IRF) Estimated Hrs Per Day: 1.5 hours per day Agreement: Yes Rehab Potential: Guarded Time/GCodes Start Time: 07:00 Stop Time: 08:00 Total Time Billed (hr/min): 60 Billed Treatment Time 1 visit-ADL 4 (60 min) TERRA SHAW Feb 18, 2019 08:20 POS
--- NOTE | 2019-02-18 08:59 | Physical Therapy Daily Note ---
PT Daily Note-Current Subjective pt sitting in WC in gym finishing OT pre-tx. pt agrees to start therapy and denies pain at this time. pt reports he is anxious about his MRI today. Appearance pt in bed post-tx with call light, phone, table in reach with all needs met at this time. Mental Status Patient Orientation: Person, Place, Time, Situation Attachments: Central Line (PICC), Oxygen (2L) Transfers SCALE: Activities may be completed with or without assistive devices. 0-Shkwxhabsd-hnzlzlx completes the activity by him/herself with no assistance from a helper. 5-Set-up or Clean-up Assistance-helper sets up or cleans up; patient completes activity. [place] assists only prior to or following the activity. 4-Supervision or Touching Assistance-helper provides verbal cues and/or touching/steadying and/or contact guard assistance as patient completes activity. Assistance may be provided throughout the activity or intermittently. 3-Partial/Moderate Assistance-helper does LESS THAN HALF the effort. [place] lifts, holds or supports trunk or limbs, but provides less than half the effort. 2-Substantial/Maximal Assistance-helper does MORE THAN HALF the effort. [place] lifts or holds trunk or limbs and provides more than half the effort. 7-Smsnunanw-msvycb does ALL the effort. Patient does none of the effort to complete the activity. Or, the assistance of 2 or more helpers is required for the patient to complete the activity. If activity was not attempted, code reason: 7-Patient Refused. 9-Not Applicable-not attempted and the patient did not perform the activity before the current illness, exacerbation or injury. 10-Not Attempted due to Environmental Limitations-(lack of equipment, weather restraints, etc.). 88-Not Attempted due to Medical Conditions or Safety Concerns. Chair/Bua-zm-Zzryp Xfer(QC): 1 (sit to stand machine) Weight Bearing Full Weight Bearing Full Weight Bearing Gait Training Does the Patient Walk?: No and Walking Goal NOT indicated Wheelchair Training Does the Pt Use a Wheelchair?: Yes Wheel 50 ft with 2 turns (QC): 4 Type of Wheelchair: Manual Balance Special Test Comments seated scooted forward in WC with no arm or back support playing catch for 1 min Exercises Seated Therapy Exercises: Ankle pumps, Sit to stand (attempts with rocking 3reps 2 sets ), Long arc quads, Hip flexion, Hamstring Curls, Hip abd/add Seated Reps: 30 (10reps 3 sets) Treatments pt performed transfer training, bed mobility training, functional LE strengthening, balance training, and education. Assessment Current Status: Fair Progress pt able to brody holding attempts to stand for about 3-5 seconds each rep. Pt very fatigued from combination of lack of sleep at night as well as structured therapy. pt requiring multiple breaking during exercises and between exercises. Pt has alot of anxiety about MRI today. pt was not able to brody self propulsion in WC as far as previous sessions today. pt has eyes closed for most of session and will open for instruction and close eyes again. PT Short Term Goals Short Term Goals Time Frame: Feb 18, 2019 Roll Left & Right: 4 (SBA) Sit to lyin (Demario) Lying to sitting on side of be: 3 Sit to stand: 2 (maxA) Chair/wne-uf-xpvqw transfer: 2 (maxA) PT Jacquard Loom Card Changer Goals Jacquard Loom Card Changer Goals PT Residential Goals Time Frame: Mar 04, 2019 Roll Left & Right (QC): 6 Sit to Lying (QC): 4 (SBA) Lying-Sitting on Side/Bed(QC): 4 (SBA) Sit to Stand (QC): 3 (Demario) Chair/Wtj-vg-Oxelz Xfer(QC): 3 (Demario) Toilet Transfer (QC): 3 (Demario) Car Transfer (QC): 3 (Demario) Does the Patient Walk: No and Walking Goal IS indicated Walk 10 feet (QC): 3 (Demario) Walk 50ft with 2 Turns (QC): 3 (Demario) Walk 150 ft (QC): 88 Walking 10ft on Uneven Surface: 88 1 Step (curb) (QC): 3 (modA) 4 Steps (QC): 88 12 Steps (QC): 88 Picking up an Object (QC): 88 Does the Pt use WC or Scooter?: Yes Wheel 50 feet with 2 turns (QC: 6 Type: Manual Wheel 150 feet: 6 Type: Manual PT Plan Problem List Problem List: Activity Tolerance, Functional Strength, Safety, Balance, Gait, Transfer, Bed Mobility, ROM Treatment/Plan Treatment Plan: Continue Plan of Care Treatment Plan: Bed Mobility, Concurrent Therapy, Education, Functional Activit y Johanna, Functional Strength, Group Therapy, Gait, Safety, Therapeutic Exercise, Transfers Treatment Duration: Mar 04, 2019 Frequency: At least 5 of 7 days/Wk (IRF) Estimated Hrs Per Day: 1.5 hours per day Patient and/or Family Agrees t: Yes Safety Risks/Education Patient Education: Transfer Techniques, Correct Positioning, W/C Management, Safety Issues Teaching Recipient: Patient Teaching Methods: Demonstration, Discussion Response to Teaching: Return Demonstration, Reinforcement Needed Time/GCodes Time In: 0800 Time Out: 0900 Total Billed Treatment Time: 60 Total Billed Treatment 1 visit EX 30' WC 15' FA 15' MARINO VEGA PT Feb 18, 2019 08:59 POS
--- NOTE | 2019-02-18 09:00 | NUR ---
pt toe bleeding through antislip stocking. sock removed. left foot, 4th toenail partially torn off, bleeding. area cleansed with alcohol swab, 4x4 gauze applied, taped to hold. notified Dr. Villagomez; Dr. Matute consult issued. will continue to monitor
[2019-02-18] MEDS: AMIODARONE 200 MG (CORDARONE) TAB PO SCH ×2 (09:21→20:18)
[2019-02-18] MEDS: SENNA W/DOCUSATE (SENOKOT S) TABLET PO SCH ×2 (09:21→20:19)
[2019-02-18] MEDS: PANTOPRAZOLE 40 MG (PROTONIX) TAB PO SCH (09:21)
[2019-02-18] MEDS: APIXABAN 5 MG (ELIQUIS) TABLET PO SCH ×2 (09:21→20:18)
[2019-02-18] MEDS: ASCORBIC ACID (VIT C) 500 MG TABLET PO SCH (09:22)
[2019-02-18] MEDS: DOCUSATE SODIUM 100 MG (COLACE) CAP PO SCH ×2 (09:24→20:19)
[2019-02-18] MEDS: ALPRAZolam 0.25 MG (XANAX) TAB PO PRN ×2 (09:24→22:36)
[2019-02-18] MEDS: busPIRone 10 MG (BUSPAR) TAB PO SCH ×2 (09:24→20:19)
[2019-02-18] MEDS: FOLIC ACID 1 MG TAB PO SCH (09:24)
[2019-02-18] MEDS: meTOprolol TARTRATE 50 MG (LOPRESSOR) TAB PO SCH ×2 (09:24→20:17)
[2019-02-18] MEDS: hydrALAZINE (APRESOLINE) 25 MG TAB PO SCH ×2 (09:24→20:18)
[2019-02-18] MEDS: LACTOBACILLUS ACIDOPHILUS (PROBIOTIC) CAPSULE PO SCH ×2 (09:24→20:18)
[2019-02-18] MEDS: SILDENAFIL 20 MG (REVATIO) TAB NON-FORMULARY PO SCH ×3 (09:32→20:18)
[2019-02-18] MEDS: THEOPHYLLINE ER 400 MG TAB (THEO-24) PO SCH (09:32)
[2019-02-18] MEDS: AZITHROMYCIN 250 MG TAB (ZITHROMAX) PO SCH (09:33)
[2019-02-18] MEDS: POLYETHYLENE GLYCOL 17 GM (MIRALAX) PACK PO SCH ×2 (09:33→20:14)
--- NOTE | 2019-02-18 11:15 | Cardiology Progress Note ---
Subjective Date Seen by Provider: Feb 18, 2019 Time Seen by Provider: 11:14 Subjective/Events-last exam patient is sitting in a chair, depressed. No chest pain. Review of Systems General: No Chills, No Night Sweats, No Fatigue; Malaise; No Appetite, No Other HEENT: No Head Aches, No Visual Changes, No Eye Pain, No Ear Pain, No Dysphasia, No Sinus Congestion, No Post Nasal Drip, No Sore Throat, No Other Pulmonary: No Dyspnea, No Cough, No Pleuritic Chest Pain, No Other Cardiovascular: No: Chest Pain, Palpitations, Orthopnea, Paroxysmal Noc. Dyspnea, Edema, Lt Headedness, Other Objective-Cardiology Exam Last Set of Vital Signs Vital Signs 02/18/19 02/18/19 02/18/19 02/18/19 05:52 07:00 07:44 07:49 Temp 36.2 Pulse 66 Resp 16 B/P (MAP) 138/78 (98) Pulse Ox 94 O2 Delivery Nasal Cannula O2 Flow Rate 2.50 Capillary Refill : I&O Intake and Output 02/18/19 00:00 Intake Total 1600 ml Output Total 1350 ml Balance 250 ml Intake Oral 1600 ml Output Urine Total 1350 ml # Voids 1 # Bowel Movements 1 General: Alert, Oriented X3, Cooperative HEENT: Atraumatic, PERRLA Neck: Supple, No JVD, No Thyromegaly Lungs: Other (diminished breath sounds bibasilarly) Heart: Regular Rate, Normal S1, Normal S2, No Murmurs Abdomen: Normal Bowel Sounds, Soft Extremities: Other (BLE edema with C/D/I evelina wraps) Skin: No Rashes, No Significant Lesion Neuro: Normal Speech, Cranial Nerves 3-12 NL Psych/Mental Status: Mental Status NL, Mood NL Results Lab Laboratory Tests 02/18/19 05:00 A/P-Cardiology Admission Diagnosis COPD CAD PAF CKD Assessment/Plan Status post repiratory failure in Dec 2018, multifactorial, obesity-hypoventilation with cor pulmonale, ac exac of COPD due to pneumonia, continues to improve. Chronic diastolic CHF, 2D Echo done 01/11/19 revealed LVEF 55-65%, left atrial dilatation, pulmonary hypertension with PA pressure 50-60 mmHg PAF w/ RVR, underwent successful electrical cardioversion. Maintained on Lopr essor, Amiodarone. continue on Eliquis and monitor Anemia, Started on Eliquis this morning. Will need EGD/colonoscopyMB done as an outpatient, continue to monitor H&H Marked, chronic leg edema with intermittent cellulitis CKD 3 and episodes of ac renal insuff due to diuretic therapy Coronary artery disease, cath of 2014 showed coronary ectasia with slow flow, no significant obstructive disease Hyperlipidemia, by history Diabetes mellitus II Clinical Quality Measures DVT/VTE Risk/Contraindication: Risk Factor Score Per Nursin RFS Level Per Nursing on Admit: 4+=Very High AMI SANTACRUZ MD Feb 18, 2019 11:15 POS
--- NOTE | 2019-02-18 12:56 | Progress Note - Hospitalist ---
Subjective HPI/CC On Admission Date Seen by Provider: Feb 18, 2019 Time Seen by Provider: 11:30 Objective Exam Vital Signs Vital Signs Date Time Temp Pulse Resp B/P (MAP) Pulse Ox O2 Delivery O2 Flow Rate FiO2 02/19/19 09:29 97 Nasal Cannula 2.00 02/19/19 07:00 74 02/19/19 05:33 36.8 16 153/81 (105) Capillary Refill : Results/Procedures Lab Laboratory Tests 02/19/19 05:15 Patient resulted labs reviewed. 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 Chronic anxiety PAF Anasarca CHF COPD OHS DM Poor venous access s/p PICC Plan: Monitor closely Monitor AF Appreciate Josseline Contreras and Miguel matias Full code per patient request PICC line placement tolerated TYSON with cardioversion successful Diagnosis/Problems Diagnosis/Problems (1) Myopathy Status: Acute (2) Atrial fibrillation (3) Anasarca (4) Fair prognosis (5) Debility (6) Molina catheter in place (7) Acute on chronic respiratory failure with hypoxia Status: Acute (8) LUIGI treated with BiPAP Status: Chronic (9) CKD (chronic kidney disease) Status: Chronic (10) COPD (chronic obstructive pulmonary disease) (11) Diabetes mellitus with hyperglycemia Status: Chronic (12) Obesity hypoventilation syndrome Status: Chronic (13) Pulmonary HTN Status: Chronic (14) Pulmonary edema Status: Acute (15) CAD (coronary artery disease) Status: Chronic (16) DVT prophylaxis Status: Acute (17) Lymphedema (18) Hypoxia Status: Acute (19) Respiratory insufficiency (20) Hypercapnia Status: Acute (21) Obesity Status: Acute (22) HTN (hypertension) Status: Acute Clinical Quality Measures DVT/VTE Risk/Contraindication: Risk Factor Score Per Nursin RFS Level Per Nursing on Admit: 4+=Very High YARIEL BUI DO Feb 18, 2019 12:56 POS
--- NOTE | 2019-02-18 13:33 | Progress Note - Urology ---
Progress Note-Urology Progress Notes/Assess & Plan Progress/Assessment & Plan VOIDING WELL WITH CLEAR URINE. UNABLE TO DO CT BECAUSE OF PHOBIA DESPITE 3 ATTEMPTS WITH PREMEDICATION. PLAN CYSTO THURSDAY OR THURSDAY Final Diagnosis GROSS HEMATURIA MARGARITO OWUSU MD Feb 18, 2019 13:33 POS
--- NOTE | 2019-02-18 13:55 | NUR ---
Vehicle Technician support requested by pt. He was weeping, stating he has been crying more today and "feels lost." He said he feels guilty and concerned about his , Anita, who is struggling with health challenges that led her to be hospitalized previously. When asked about the guilt, he described that he wished he could be there for her and feels guilty that he cannot. He said he would ask Dr. Villagomez for a day pass because he wondered if by getting out of the hospital for day his mood might improve. I facilitated conversation about his sources of positive coping, which the pt lists as relationships, brett and prayer. He said he called for a reviewer sales so he could talk and concluded that he "felt much better." He was feeling concerned about his CT scan but felt reassured by Dr. Gutiérrez that the scan would not make his condition better it would only help the team figure out what was going on.
--- NOTE | 2019-02-18 14:43 | Therapy Group Daily Note ---
Therapy Daily Group Note Patient Education Topic Other List Below (handwashing and prevention, ARU description/expectations) Exercises LE Seated Exercise, UE Exercise Session Ratio (pt:therapist): 4:1 Goal of Session: Education on ARU Expectations, Memory Strategies, Other (list) (handwashing) Goal Met for this Session: Yes Pt Benefit of Group: Contributions to Others, Increased Functional Strength, Improved Cognition, Recognition of Peers, Socialization Other/Notes Pt transported via recliner to OT/PT group. Group consisted of introductions (name, place living, favorite Sherwin maryam), socialization, UE/LE seated exercise activity, memory activity, educational topics over handwashing and ARU description/expectations. Pt introduced self appropriately and actively listened to peers. Pt acknowledged understanding of educational topics by verbalizing own opinions and beginning discussions during group over topics. Pt then was able to grasp and hold onto pond bag to throw to designated area with 40% or more accuracy. After therapy, pt sitting in recliner with call light/phone in reach. All needs met in room. Start Time: 13:00 Stop Time: 14:15 Total Billed Treatment Time: 75 Total Billed Treatment 1-GRP TERRA SHAW Feb 18, 2019 14:43 POS
[2019-02-18 15:28] VITALS: BP 123/72
[2019-02-18] MEDS ORDERED: inSUlin ASPART (NovoLOG) 1 UNIT/0.01 ML (CHARGE PER UNIT) SC NR (15:45)
--- NOTE | 2019-02-18 16:00 | NUR ---
Dr. Matute assesses 4th toenail, Pt verbalizes to dr, does not recall sensation or when toenail was torn. trims torn nail to cuticle, verbal orders for FARA and daily dressing change given. Orders entered. Dressing applied with tape. will continue to monitor.
--- NOTE | 2019-02-18 16:28 | Podiatry Progress Note ---
Standard Progress Note Progress Notes/Assess & Plan Date Seen by a Provider: Feb 18, 2019 Time Seen by a Provider: 16:27 Progress/Assessment & Plan Nail Avulsion of left 4th toenail. Consult dictated. Final Diagnosis Onycholysis, Diabetic Neuropathy, Contusion of toe COLLEEN REARDON DPRenetta Feb 18, 2019 16:28 POS
[2019-02-18 17:44] VITALS: BP 136/73
[2019-02-18] MEDS: MELATONIN 3 MG TABLET PO PRN (20:19)
--- NOTE | 2019-02-18 23:06 | CONSULTATION REPORT ---
DATE OF SERVICE: 02/18/2019 REASON FOR CONSULTATION: Loose left fourth toenail. HISTORY OF PRESENT ILLNESS: This is a 63-year-old male, who was admitted to second floor, rehabilitation. He has been transferred from [facility] for chronic respiratory failure. He has shortness of breath and difficulty reaching for and caring for his feet. He reports that he has very little feeling in his feet. He reports also that he has had excessive swelling to the feet and legs. PAST MEDICAL HISTORY: Atrial fibrillation, coronary artery disease, COPD, diabetes, hypertension, neuropathy, hypercholesterolemia, edema and swelling, pneumonia, and recently has had a diagnosis of leg cellulitis and sepsis. He also has a history of renal failure, abdominal hernia, arthritis, cataracts, anxiety, depression. SOCIAL HISTORY: The patient lives in a single level. He does have tobacco use. CURRENT MEDICATIONS: Listed on the patient's chart. ALLERGIES: He has no known drug allergies. PHYSICAL EXAMINATION: LOWER EXTREMITIES: The patient has nonpalpable pedal pulses. He has 3+ pitting edema bilaterally. Skin temperature is within normal limits. Light touch sensation is diminished. He has extremely loose L4 toenail with debridement of the loose nail. There is only a proximal attachment which was minimal with no active bleeding. No erythema, edema or proximal streaking. The patient has thick yellow dystrophic toenails with subungual debris R 1, 2, 3, 4 and 5; and L 1, 4, 5 digits. He has 4/5 muscle strength to the four major quadrants of the foot bilaterally. ASSESSMENT: Diabetic neuropathy, atherosclerosis edema, onychomycosis, onycholysis L 4, history of contusion today apparently. PLAN: Various treatment options were discussed with the patient. His toenail was debrided left fourth digit, it was cleansed, after which topical antibiotic and a light dressing was applied. Wound care will be performed daily with topical antibiotic and light dressing. The patient is also in need of the rest of his toenails been debrided as they are thickened, yellow and problematic and snagging on his socks. Unfortunately, I do not have the instrumentation available to me at this time. I will have to come back another day with the appropriate equipment. We also discussed diabetic foot care and pressure precautions for his heels. Job ID: [id number] DocumentID: [id number] Dictated Date: 02/18/2019 16:39:57 Rcis Date: 02/18/2019 23:05:51 Dictated By: COLLEEN REARDON DPM
[2019-02-19] MEDS: MULTIVIT W/MINERALS TAB (THERAGRAN M) PO SCH (05:16)
[2019-02-19] MEDS: CATHETER FLUSH 10 ML SYR IV SCH ×3 (05:16→20:14)
[2019-02-19] MEDS: predniSONE 20 MG TAB PO SCH (05:16)
[2019-02-19 05:29] LABS: MEAN PLATELET VOLUME 9.6 FL (7.4-10.4); RED CELL DISTRIBUTION WIDTH 19.6 % (10.0-14.5); WHITE BLOOD COUNT 3.9 10^3/uL (4.3-11.0)
[2019-02-19 05:33] VITALS: BP_SYST 118; BP_SYST 153; BP_DIAS 70; BP_DIAS 81
[2019-02-19 06:01] LABS: CALCIUM 8.6 MG/DL (8.5-10.1); CREATININE SERUM 1.39 MG/DL (0.60-1.30); PHOSPHORUS 3.3 MG/DL (2.3-4.7); POTASSIUM 3.9 MMOL/L (3.6-5.0)
[2019-02-19] MEDS: inSUlin ASPART (NovoLOG) 1 UNIT/0.01 ML (CHARGE PER UNIT) SC SCH ×2 (06:06→11:01)
--- NOTE | 2019-02-19 08:14 | Physical Therapy Daily Note ---
PT Daily Note-Current Subjective Pt agreeable to PT session. States he cannot wear CPAP more than 10 min at a time because it makes him so anxious and has some claustrophobic feeling. Pain Numeric Pain Scale: 0-No Pain Appearance Pt sitting up in recliner upon arrival and at end of session awake and alert, call light, phone and bedside table within reach. Mental Status Patient Orientation: Person, Place, Time, Eyes Open, Situation Attachments: Oxygen (2.5 L) Transfers SCALE: Activities may be completed with or without assistive devices. 8-Rigbjpxofv-rgzelkf completes the activity by him/herself with no assistance from a helper. 5-Set-up or Clean-up Assistance-helper sets up or cleans up; patient completes activity. [place] assists only prior to or following the activity. 4-Supervision or Touching Assistance-helper provides verbal cues and/or touching/steadying and/or contact guard assistance as patient completes activity. Assistance may be provided throughout the activity or intermittently. 3-Partial/Moderate Assistance-helper does LESS THAN HALF the effort. [place] lifts, holds or supports trunk or limbs, but provides less than half the effort. 2-Substantial/Maximal Assistance-helper does MORE THAN HALF the effort. [place] lifts or holds trunk or limbs and provides more than half the effort. 6-Lkhrnszql-ajbsrr does ALL the effort. Patient does none of the effort to complete the activity. Or, the assistance of 2 or more helpers is required for the patient to complete the activity. If activity was not attempted, code reason: 7-Patient Refused. 9-Not Applicable-not attempted and the patient did not perform the activity before the current illness, exacerbation or injury. 10-Not Attempted due to Environmental Limitations-(lack of equipment, weather restraints, etc.). 88-Not Attempted due to Medical Conditions or Safety Concerns. Weight Bearing Full Weight Bearing Full Weight Bearing Exercises Seated Therapy Exercises: Ankle pumps (19), Long arc quads (5), Chair press-ups (x5, minimal lift, SOA), Hip flexion (x10 AAROM >LLE), Hip abd/add (20) Assessment fatigue quickly with LE ex's, SOA PT Short Term Goals Short Term Goals Time Frame: Feb 18, 2019 Roll Left & Right: 4 (SBA) Sit to lyin (Demario) Lying to sitting on side of be: 3 Sit to stand: 2 (maxA) Chair/ksc-fn-wtkdw transfer: 2 (maxA) PT Financial Services Technician Goals Prison Goals PT Financial Services Technician Goals Time Frame: Mar 04, 2019 Roll Left & Right (QC): 6 Sit to Lying (QC): 4 (SBA) Lying-Sitting on Side/Bed(QC): 4 (SBA) Sit to Stand (QC): 3 (Demario) Chair/Uuw-hz-Jeaij Xfer(QC): 3 (Demario) Toilet Transfer (QC): 3 (Demario) Car Transfer (QC): 3 (Demario) Does the Patient Walk: No and Walking Goal IS indicated Walk 10 feet (QC): 3 (Demario) Walk 50ft with 2 Turns (QC): 3 (Demario) Walk 150 ft (QC): 88 Walking 10ft on Uneven Surface: 88 1 Step (curb) (QC): 3 (modA) 4 Steps (QC): 88 12 Steps (QC): 88 Picking up an Object (QC): 88 Does the Pt use WC or Scooter?: Yes Wheel 50 feet with 2 turns (QC: 6 Type: Manual Wheel 150 feet: 6 Type: Manual PT Plan Treatment/Plan Treatment Plan: Continue Plan of Care Treatment Plan: Bed Mobility, Concurrent Therapy, Education, Functional Activity Johanna, Functional Strength, Group Therapy, Gait, Safety, Therapeutic Exercise, Transfers Treatment Duration: Mar 04, 2019 Frequency: At least 5 of 7 days/Wk (IRF) Estimated Hrs Per Day: 1.5 hours per day Patient and/or Family Agrees t: Yes Safety Risks/Education Patient Education: Safety Issues Teaching Recipient: Patient Teaching Methods: Discussion Response to Teaching: Verbalize Understanding Time/GCodes Time In: 807 Time Out: 825 Total Billed Treatment Time: 18 Total Billed Treatment 1 visit, EX x18 min ERIKA FARRAR PTA Feb 19, 2019 08:14 POS
[2019-02-19] MEDS: SENNA W/DOCUSATE (SENOKOT S) TABLET PO SCH ×2 (09:00→20:13)
[2019-02-19] MEDS: DOCUSATE SODIUM 100 MG (COLACE) CAP PO SCH ×2 (09:00→20:13)
[2019-02-19] MEDS: POLYETHYLENE GLYCOL 17 GM (MIRALAX) PACK PO SCH ×2 (09:00→20:13)
[2019-02-19] MEDS: LACTOBACILLUS ACIDOPHILUS (PROBIOTIC) CAPSULE PO SCH ×2 (09:13→20:11)
[2019-02-19] MEDS: PANTOPRAZOLE 40 MG (PROTONIX) TAB PO SCH (09:13)
[2019-02-19] MEDS: hydrALAZINE (APRESOLINE) 25 MG TAB PO SCH ×2 (09:13→20:10)
[2019-02-19] MEDS: meTOprolol TARTRATE 50 MG (LOPRESSOR) TAB PO SCH ×2 (09:13→20:11)
[2019-02-19] MEDS: AMIODARONE 200 MG (CORDARONE) TAB PO SCH ×2 (09:13→20:10)
[2019-02-19] MEDS: ASCORBIC ACID (VIT C) 500 MG TABLET PO SCH (09:14)
[2019-02-19] MEDS: APIXABAN 5 MG (ELIQUIS) TABLET PO SCH ×2 (09:14→20:10)
[2019-02-19] MEDS: busPIRone 10 MG (BUSPAR) TAB PO SCH ×2 (09:14→20:10)
[2019-02-19] MEDS: FOLIC ACID 1 MG TAB PO SCH (09:14)
[2019-02-19] MEDS: THEOPHYLLINE ER 400 MG TAB (THEO-24) PO SCH (09:22)
[2019-02-19] MEDS: RT-ALBUTEROL/IPRATROPIUM 3 ML (DUONEB) VIAL INH SCH ×4 (09:22→19:38)
[2019-02-19] MEDS: RT-ADVAIR HFA 115/21 MCG PER PUFF IH SCH ×2 (09:23→19:38)
--- NOTE | 2019-02-19 09:42 | PM&R Progress Note ---
Subjective HPI/CC On Admission Date Seen by Provider: Feb 18, 2019 Time Seen by Provider: 10:00 Subjective/Events-last exam Late entry note since started incorrect note Pt is very emotional labile Got out of bed and began having a lot of anxiety Nystatin cream placed in the folds but now he is having some breakdowns so will have wound care evaluate ijm Hgb 8.3 Creatinine 1.38 I tried to reassure him He has asked for pastoral support Pt is appearing to be more and more end stage Conferred with RN Checked meds and labs Still refuses to use BiPAP but still remains a full code May need trach Review of Systems General: Fatigue Pulmonary: Dyspnea Cardiovascular: Edema Objective Exam Vital Signs Vital Signs Date Time Temp Pulse Resp B/P (MAP) Pulse Ox O2 Delivery O2 Flow Rate FiO2 02/19/19 09:29 97 Nasal Cannula 2.00 02/19/19 07:00 74 02/19/19 05:33 36.8 16 153/81 (105) Capillary Refill : General Appearance: No Apparent Distress, WD/WN, Anxious, Chronically ill, Obese HEENT: PERRL/EOMI, Normal ENT Inspection, Pharynx Normal Neck: Full Range of Motion, Normal Inspection, Non Tender, Supple, Carotid Bruit Respiratory: Chest Non Tender, Lungs Clear, No Accessory Muscle Use, No Respiratory Distress, Decreased Breath Sounds Cardiovascular: Regular Rate, Rhythm, No Gallop, No JVD, No Murmur, Normal Peripheral Pulses Gastrointestinal: Normal Bowel Sounds, No Organomegaly, No Pulsatile Mass, Non Tender, Soft Back: Normal Inspection, No CVA Tenderness, No Vertebral Tenderness Extremity: Normal Capillary Refill, Normal Inspection, Normal Range of Motion, Non Tender, No Calf Tenderness, Pedal Edema Neurologic/Psychiatric: Alert, Oriented x3, No Motor/Sensory Deficits, Normal Mood/Affect, enterprise security architect II-XII Norm as Tested Skin: Normal Color, Warm/Dry Lymphatic: No Adenopathy Results/Procedures Lab Laboratory Tests 02/19/19 05:15 Patient resulted labs reviewed. FIM Transfers Therapy Code Descriptions/Definitions Functional [place] Measure: 0=Not Assessed/NA 4=Minimal Assistance 1=Total Assistance 5=Supervision or Setup 2=Maximal Assistance 6=Modified [place] 3=Moderate Assistance 7=Complete IndependenceSCALE: Activities may be completed with or without assistive devices. 4-Qhnliboznu-tccmrte completes the activity by him/herself with no assistance from a helper. 5-Set-up or Clean-up Assistance-helper sets up or cleans up; patient completes activity. [place] assists only prior to or following the activity. 4-Supervision or Touching Assistance-helper provides verbal cues and/or touching/steadying and/or contact guard assistance as patient completes activity. Assistance may be provided throughout the activity or intermittently. 3-Partial/Moderate Assistance-helper does LESS THAN HALF the effort. [place] lifts, holds or supports trunk or limbs, but provides less than half the effort. 2-Substantial/Maximal Assistance-helper does MORE THAN HALF the effort. [place] lifts or holds trunk or limbs and provides more than half the effort. 4-Ugjzxtaev-fjyvqu does ALL the effort. Patient does none of the effort to complete the activity. Or, the assistance of 2 or more helpers is required for the patient to complete the activity. If activity was not attempted, code reason: 7-Patient Refused. 9-Not Applicable-not attempted and the patient did not perform the activity before the current illness, exacerbation or injury. 10-Not Attempted due to Environmental Limitations-(lack of equipment, weather restraints, etc.). 88-Not Attempted due to Medical Conditions or Safety Concerns. Roll Left to Right (QC): 3 (Demario) Sit to Lying (QC): 3 Sit to Stand (QC): 1 Chair/Crj-qa-Huhga Xfer(QC): 1 (sit to stand machine) Car Transfer (QC): 88 Gait Training Does the Patient Walk?: No and Walking Goal NOT indicated Walk 10 feet (QC): 88 Walk 50 ft with 2 Turns(QC): 88 Walk 150 ft (QC): 88 Walking 10ft/uneven surface-QC: 88 Wheelchair Training Does the Pt Use a Wheelchair?: Yes Distance: 100x2 Wheel 50 ft with 2 turns (QC): 4 Wheel 150 ft (QC): 88 Type of Wheelchair: Manual Stair Training 1 Step (curb) (QC): 88 4 Steps (QC): 88 12 Steps (QC): 88 Balance Picking up an Object (QC): 88 ADL-Treatment Eating (QC): 6 (Pt demonstrates ability to complete meal set up and uses regular utensils to eat.) Oral Hygiene (QC): 7 Bathing Location: L Arm, R Arm, L Upper Leg, R Upper Leg, L Lower Leg (including foot), R Lower Leg (including foot), Chest, Abdomen Shower/Bathe Self (QC): 1 Upper Body Dressing (QC): 5 Lower Body Dressing (QC): 1 On/Off Footwear (QC): 1 (Pt unable to reach feet in order to don/doff footwear. OT assisted with all parts of task. 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 Chronic anxiety PAF Anasarca CHF COPD OHS DM Poor venous access s/p PICC Emotionally labile today Plan: Monitor closely Monitor AF Appreciate Josseline Contreras and Miguel BRANDEN wraps Full code per patient request PICC line placement tolerated TYSON with cardioversion successful Pastoral care at patient request 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 (1) Myopathy Status: Acute (2) Atrial fibrillation (3) Anasarca (4) Fair prognosis (5) Debility (6) Molina catheter in place (7) Acute on chronic respiratory failure with hypoxia Status: Acute (8) LUIGI treated with BiPAP Status: Chronic (9) CKD (chronic kidney disease) Status: Chronic (10) COPD (chronic obstructive pulmonary disease) (11) Diabetes mellitus with hyperglycemia Status: Chronic (12) Obesity hypoventilation syndrome Status: Chronic (13) Pulmonary HTN Status: Chronic (14) Pulmonary edema Status: Acute (15) CAD (coronary artery disease) Status: Chronic (16) DVT prophylaxis Status: Acute (17) Lymphedema (18) Hypoxia Status: Acute (19) Respiratory insufficiency (20) Hypercapnia Status: Acute (21) Obesity Status: Acute (22) HTN (hypertension) Status: Acute YARIEL BUI DO Feb 19, 2019 09:42 POS
[2019-02-19] MEDS: SILDENAFIL 20 MG (REVATIO) TAB NON-FORMULARY PO SCH ×3 (11:02→20:11)
--- NOTE | 2019-02-19 12:13 | PM&R Progress Note ---
Subjective HPI/CC On Admission Date Seen by Provider: Feb 19, 2019 Time Seen by Provider: 10:00 Subjective/Events-last exam Respiratory therapy will try a smaller mask of the nasal type Does not use his home CPAP now even though his brought it in as he requested Emptying bladder pretty well now no major retention No hematuria noted Feels like he is doing a little better now Pt is appearing to be more and more end stage Conferred with RN Checked meds and labs Reviewed therapy notes Review of Systems General: Fatigue Pulmonary: Dyspnea Cardiovascular: Edema Objective Exam Vital Signs Vital Signs Date Time Temp Pulse Resp B/P (MAP) Pulse Ox O2 Delivery O2 Flow Rate FiO2 02/20/19 13:50 94 Nasal Cannula 2.00 02/20/19 13:00 66 02/20/19 09:00 125/69 (87) 02/20/19 05:45 36.5 18 Capillary Refill : General Appearance: No Apparent Distress, WD/WN, Anxious, Chronically ill, Obese HEENT: PERRL/EOMI, Normal ENT Inspection, Pharynx Normal Neck: Full Range of Motion, Normal Inspection, Non Tender, Supple, Carotid Bruit Respiratory: Chest Non Tender, Lungs Clear, No Accessory Muscle Use, No Respiratory Distress, Decreased Breath Sounds Cardiovascular: Regular Rate, Rhythm, No Gallop, No JVD, No Murmur, Normal Peripheral Pulses Gastrointestinal: Normal Bowel Sounds, No Organomegaly, No Pulsatile Mass, Non Tender, Soft Back: Normal Inspection, No CVA Tenderness, No Vertebral Tenderness Extremity: Normal Capillary Refill, Normal Inspection, Normal Range of Motion, Non Tender, No Calf Tenderness, Pedal Edema Neurologic/Psychiatric: Alert, Oriented x3, No Motor/Sensory Deficits, Normal Mood/Affect, sizer machine II-XII Norm as Tested Skin: Normal Color, Warm/Dry Lymphatic: No Adenopathy Results/Procedures Lab Laboratory Tests 02/20/19 04:58 Patient resulted labs reviewed. FIM Transfers Therapy Code Descriptions/Definitions Functional [place] Measure: 0=Not Assessed/NA 4=Minimal Assistance 1=Total Assistance 5=Supervision or Setup 2=Maximal Assistance 6=Modified [place] 3=Moderate Assistance 7=Complete IndependenceSCALE: Activities may be completed with or without assistive devices. 9-Tjpvftxnvk-exyvzlf completes the activity by him/herself with no assistance from a helper. 5-Set-up or Clean-up Assistance-helper sets up or cleans up; patient completes activity. [place] assists only prior to or following the activity. 4-Supervision or Touching Assistance-helper provides verbal cues and/or touching/steadying and/or contact guard assistance as patient completes activity. Assistance may be provided throughout the activity or intermittently. 3-Partial/Moderate Assistance-helper does LESS THAN HALF the effort. [place] lifts, holds or supports trunk or limbs, but provides less than half the effort. 2-Substantial/Maximal Assistance-helper does MORE THAN HALF the effort. [place] lifts or holds trunk or limbs and provides more than half the effort. 3-Voxkeuiek-nvqgmn does ALL the effort. Patient does none of the effort to complete the activity. Or, the assistance of 2 or more helpers is required for the patient to complete the activity. If activity was not attempted, code reason: 7-Patient Refused. 9-Not Applicable-not attempted and the patient did not perform the activity before the current illness, exacerbation or injury. 10-Not Attempted due to Environmental Limitations-(lack of equipment, weather restraints, etc.). 88-Not Attempted due to Medical Conditions or Safety Concerns. Roll Left to Right (QC): 3 (Demario) Sit to Lying (QC): 3 Sit to Stand (QC): 1 Chair/Uzt-km-Vstlj Xfer(QC): 1 (sit to stand machine) Car Transfer (QC): 88 Gait Training Does the Patient Walk?: No and Walking Goal NOT indicated Walk 10 feet (QC): 88 Walk 50 ft with 2 Turns(QC): 88 Walk 150 ft (QC): 88 Walking 10ft/uneven surface-QC: 88 Wheelchair Training Does the Pt Use a Wheelchair?: Yes Distance: 100x2 Wheel 50 ft with 2 turns (QC): 4 Wheel 150 ft (QC): 88 Type of Wheelchair: Manual Stair Training 1 Step (curb) (QC): 88 4 Steps (QC): 88 12 Steps (QC): 88 Balance Picking up an Object (QC): 88 ADL-Treatment Eating (QC): 6 (Pt demonstrates ability to complete meal set up and uses regular utensils to eat.) Oral Hygiene (QC): 7 Bathing Location: L Arm, R Arm, L Upper Leg, R Upper Leg, L Lower Leg (including foot), R Lower Leg (including foot), Chest, Abdomen Shower/Bathe Self (QC): 1 Upper Body Dressing (QC): 5 Lower Body Dressing (QC): 1 On/Off Footwear (QC): 1 (Pt unable to reach feet in order to don/doff footwear. OT assisted with all parts of task. 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 Chronic anxiety PAF Anasarca CHF COPD OHS DM Poor venous access s/p PICC Emotionally labile periodically Plan: Monitor closely Monitor AF Appreciate Josseline Contreras and Miguel OTERO wralex Full code per patient request PICC line placement tolerated TYSON with cardioversion successful Pastoral care at patient request Protection Manager patient to use BiPAP (1) Myopathy Status: Acute (2) Atrial fibrillation (3) Anasarca (4) Fair prognosis (5) Debility (6) Molina catheter in place (7) Acute on chronic respiratory failure with hypoxia Status: Acute (8) LUIGI treated with BiPAP Status: Chronic (9) CKD (chronic kidney disease) Status: Chronic (10) COPD (chronic obstructive pulmonary disease) (11) Diabetes mellitus with hyperglycemia Status: Chronic (12) Obesity hypoventilation syndrome Status: Chronic (13) Pulmonary HTN Status: Chronic (14) Pulmonary edema Status: Acute (15) CAD (coronary artery disease) Status: Chronic (16) DVT prophylaxis Status: Acute (17) Lymphedema (18) Hypoxia Status: Acute (19) Respiratory insufficiency (20) Hypercapnia Status: Acute (21) Obesity Status: Acute (22) HTN (hypertension) Status: Acute YARIEL BUI DO Feb 19, 2019 12:13 POS
--- NOTE | 2019-02-19 15:00 | NUR ---
PICC line assessment showed dressing had been partially removed/ PICC lines were pulled out/No stat lock present at site. PICC line removed/pressure applied/bandage placed. Pt tolerated well. No redness/swelling noted at site/bruising was noted at PICC line site. Dr Villagomez called with update. No new PICC line to be placed at this time per Dr Villagomez
--- NOTE | 2019-02-19 16:00 | NUR ---
Dr Villagomez notified of blood glucose of 402/ new order to change to regular insulin instead of Novolog.
[2019-02-19 16:25] VITALS: BP 135/73
[2019-02-19] MEDS: inSUlin (REGULAR) HUMAN 1 UNIT/0.01 ML (CHARGE PER UNIT) SC SCH ×2 (17:22→20:49)
[2019-02-19] MEDS: NEO/POLY/BAC (NEOSPORIN) OINT 15 GM TUBE TOP SCH (17:24)
--- NOTE | 2019-02-19 18:08 | NUR ---
Not able to tolerate own CPAP or BIPAP but willing to try different mask tonight. Dr Villagomez does not feel stronger sleep med would be advisable do to respiratory issues. 3 glass test continues/no hematuria noted. Pt feels he is emptying bladder despite void x 1. Bladder scan shows 213cc at this time.
[2019-02-19] MEDS: MELATONIN 3 MG TABLET PO PRN (20:11)
[2019-02-20 05:19] LABS: HEMOGLOBIN 8.2 G/DL (13.3-17.7); MEAN PLATELET VOLUME 9.6 FL (7.4-10.4); RED CELL DISTRIBUTION WIDTH 19.6 % (10.0-14.5); WHITE BLOOD COUNT 4.7 10^3/uL (4.3-11.0)
[2019-02-20 05:41] LABS: CALCIUM 8.6 MG/DL (8.5-10.1); CREATININE SERUM 1.49 MG/DL (0.60-1.30); MAGNESIUM 2.1 MG/DL (1.6-2.4); PHOSPHORUS 3.1 MG/DL (2.3-4.7); POTASSIUM 4.3 MMOL/L (3.6-5.0)
[2019-02-20 05:45] VITALS: BP 125/64
[2019-02-20] MEDS: inSUlin (REGULAR) HUMAN 1 UNIT/0.01 ML (CHARGE PER UNIT) SC SCH ×4 (05:47→20:25)
[2019-02-20] MEDS: MULTIVIT W/MINERALS TAB (THERAGRAN M) PO SCH (06:02)
[2019-02-20] MEDS: predniSONE 20 MG TAB PO SCH (06:02)
--- NOTE | 2019-02-20 08:00 | NUR ---
pt up to commode via claudia lift for very large bowel movement/void. Pt continues to have lower extremities wrapped with evelina bandages. Legs continue to be +3 pitting edema. Pt to chair/tolerated well/feet up with support.
[2019-02-20 09:00] VITALS: BP 125/69
[2019-02-20] MEDS: hydrALAZINE (APRESOLINE) 25 MG TAB PO SCH ×2 (09:10→20:03)
[2019-02-20] MEDS: meTOprolol TARTRATE 50 MG (LOPRESSOR) TAB PO SCH ×2 (09:11→20:03)
[2019-02-20] MEDS: AMIODARONE 200 MG (CORDARONE) TAB PO SCH ×2 (09:12→20:03)
[2019-02-20] MEDS: LACTOBACILLUS ACIDOPHILUS (PROBIOTIC) CAPSULE PO SCH ×2 (09:12→20:03)
[2019-02-20] MEDS: busPIRone 10 MG (BUSPAR) TAB PO SCH ×2 (09:12→20:04)
[2019-02-20] MEDS: APIXABAN 5 MG (ELIQUIS) TABLET PO SCH ×2 (09:12→20:03)
[2019-02-20] MEDS: FOLIC ACID 1 MG TAB PO SCH (09:13)
[2019-02-20] MEDS: PANTOPRAZOLE 40 MG (PROTONIX) TAB PO SCH (09:13)
[2019-02-20] MEDS: THEOPHYLLINE ER 400 MG TAB (THEO-24) PO SCH (09:14)
[2019-02-20] MEDS: SILDENAFIL 20 MG (REVATIO) TAB NON-FORMULARY PO SCH ×3 (09:14→20:04)
[2019-02-20] MEDS: SENNA W/DOCUSATE (SENOKOT S) TABLET PO SCH ×2 (09:16→19:19)
[2019-02-20] MEDS: DOCUSATE SODIUM 100 MG (COLACE) CAP PO SCH ×2 (09:16→19:19)
[2019-02-20] MEDS: NEO/POLY/BAC (NEOSPORIN) OINT 15 GM TUBE TOP SCH (09:17)
[2019-02-20] MEDS: POLYETHYLENE GLYCOL 17 GM (MIRALAX) PACK PO SCH ×2 (09:17→19:19)
[2019-02-20] MEDS: ASCORBIC ACID (VIT C) 500 MG TABLET PO SCH (09:18)
--- NOTE | 2019-02-20 09:20 | NUR ---
dr Gutiérrez to room to see pt.
--- NOTE | 2019-02-20 09:36 | Cardiology Progress Note ---
Subjective Date Seen by Provider: Feb 20, 2019 Time Seen by Provider: 09:35 Subjective/Events-last exam Patient is sitting in a chair, feeling better, was unable to tolerate C Pap Review of Systems General: No Chills, No Night Sweats; Fatigue; No Malaise, No Appetite, No Other Pulmonary: Dyspnea; No Cough, No Pleuritic Chest Pain, No Other Cardiovascular: Edema; No: Chest Pain, Palpitations, Orthopnea, Paroxysmal Noc. Dyspnea, Lt Headedness, Other Objective-Cardiology Exam Last Set of Vital Signs Vital Signs 02/20/19 02/20/19 05:45 07:00 Temp 36.5 Pulse 61 Resp 18 B/P (MAP) 125/64 (84) Pulse Ox 97 O2 Delivery Nasal Cannula O2 Flow Rate 2.00 Capillary Refill : I&O Intake and Output 02/20/19 00:00 Intake Total 1550 ml Output Total 1070 ml Balance 480 ml Intake Oral 1550 ml Output Urine Total 1070 ml Bladder Scan Volume Amount 213 ml General: Alert, Oriented X3, Cooperative HEENT: Atraumatic, PERRLA Neck: Supple, No JVD, No Thyromegaly Lungs: Other (diminished breath sounds bibasilarly) Heart: Regular Rate, Normal S1, Normal S2, No Murmurs Abdomen: Normal Bowel Sounds, Soft Extremities: Other (BLE edema with C/D/I evelina wraps) Skin: No Rashes, No Significant Lesion Neuro: Normal Speech, Cranial Nerves 3-12 NL Psych/Mental Status: Mental Status NL, Mood NL Results Lab Laboratory Tests 02/20/19 04:58 A/P-Cardiology Admission Diagnosis COPD CAD PAF CKD Assessment/Plan Status post repiratory failure in Dec 2018, multifactorial, obesity-hypoventi lation with cor pulmonale, ac exac of COPD due to pneumonia, managed by primary care team Chronic diastolic CHF, 2D Echo done 01/11/19 revealed LVEF 55-65%, left atrial dilatation, pulmonary hypertension with PA pressure 50-60 mmHg, continue to monitor PAF w/ RVR, underwent successful electrical cardioversion. Maintained on Lopressor, Amiodarone. continue on Eliquis and monitor Anemia, Started on Eliquis this morning. Will need EGD/colonoscopy, can be done as an outpatient, continue to monitor H&H Marked edema, chronic leg edema with intermittent cellulitis, continue to monitor CKD 3 and episodes of ac renal insuff due to diuretic therapy, monitor renal function Coronary artery disease, cath of 2014 showed coronary ectasia with slow flow, no significant obstructive disease Hyperlipidemia, continue to monitor Diabetes mellitus II Clinical Quality Measures DVT/VTE Risk/Contraindication: Risk Factor Score Per Nursin RFS Level Per Nursing on Admit: 4+=Very High AMI SANTACRUZ MD Feb 20, 2019 9:36 am POS
[2019-02-20] MEDS: RT-ALBUTEROL/IPRATROPIUM 3 ML (DUONEB) VIAL INH SCH ×3 (11:26→19:23)
[2019-02-20] MEDS: RT-ADVAIR HFA 115/21 MCG PER PUFF IH SCH (11:26)
--- NOTE | 2019-02-20 12:12 | Progress Note - Urology ---
Progress Note-Urology Progress Notes/Assess & Plan Progress/Assessment & Plan VOIDING WELL. NO HEMATURIA. PLAN 1. RENAL US TOMORROW 2. CYSTOSCOPY AT BEDSIDE THURSDAY 3. DC 3 GLASS TEST PLAN FULLY EXPLAINED TO PATIENT Final Diagnosis GROSS HEMATURIA (RESOLVED) MARGARITO OWUSU MD Feb 20, 2019 12:12 POS
--- NOTE | 2019-02-20 12:17 | PM&R Progress Note ---
Subjective HPI/CC On Admission Date Seen by Provider: Feb 20, 2019 Time Seen by Provider: 11:00 Subjective/Events-last exam White count 4.7 Regular insulin was given due to high sugars 3 glass test will be discontinued since no more hematuria has appeared Nasal mask did not work last night but RT will try another one Incontinent sometimes and BladderScan 200 cc of urinary retention Wants to try to go on a home visit but I do not think he is even nearly close enough to recovery to be able to have that success he would likely come back in respiratory failure Pt is appearing to be more and more end stage Conferred with RN Checked meds and labs Reviewed therapy notes Review of Systems General: Fatigue Pulmonary: Dyspnea Cardiovascular: Edema Objective Exam Vital Signs Vital Signs Date Time Temp Pulse Resp B/P (MAP) Pulse Ox O2 Delivery O2 Flow Rate FiO2 02/20/19 20:42 Nasal Cannula 2.00 02/20/19 19:24 95 02/20/19 19:00 68 02/20/19 17:14 36.9 20 132/64 (86) Capillary Refill : General Appearance: No Apparent Distress, WD/WN, Anxious, Chronically ill, Obese HEENT: PERRL/EOMI, Normal ENT Inspection, Pharynx Normal Neck: Full Range of Motion, Normal Inspection, Non Tender, Supple, Carotid Bruit Respiratory: Chest Non Tender, Lungs Clear, No Accessory Muscle Use, No Respiratory Distress, Decreased Breath Sounds Cardiovascular: Regular Rate, Rhythm, No Gallop, No JVD, No Murmur, Normal Peripheral Pulses Gastrointestinal: Normal Bowel Sounds, No Organomegaly, No Pulsatile Mass, Non Tender, Soft Back: Normal Inspection, No CVA Tenderness, No Vertebral Tenderness Extremity: Normal Capillary Refill, Normal Inspection, Normal Range of Motion, Non Tender, No Calf Tenderness, Pedal Edema Neurologic/Psychiatric: Alert, Oriented x3, No Motor/Sensory Deficits, Normal Mood/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 FIM Transfers Therapy Code Descriptions/Definitions Functional [place] Measure: 0=Not Assessed/NA 4=Minimal Assistance 1=Total Assistance 5=Supervision or Setup 2=Maximal Assistance 6=Modified [place] 3=Moderate Assistance 7=Complete IndependenceSCALE: Activities may be completed with or without assistive devices. 4-Uxotgrguck-ynqludx completes the activity by him/herself with no assistance from a helper. 5-Set-up or Clean-up Assistance-helper sets up or cleans up; patient completes activity. [place] assists only prior to or following the activity. 4-Supervision or Touching Assistance-helper provides verbal cues and/or touching/steadying and/or contact guard assistance as patient completes activity. Assistance may be provided throughout the activity or intermittently. 3-Partial/Moderate Assistance-helper does LESS THAN HALF the effort. [place] lifts, holds or supports trunk or limbs, but provides less than half the effort. 2-Substantial/Maximal Assistance-helper does MORE THAN HALF the effort. [place] lifts or holds trunk or limbs and provides more than half the effort. 3-Lbwtqeirk-gvsaag does ALL the effort. Patient does none of the effort to complete the activity. Or, the assistance of 2 or more helpers is required for the patient to complete the activity. If activity was not attempted, code reason: 7-Patient Refused. 9-Not Applicable-not attempted and the patient did not perform the activity before the current illness, exacerbation or injury. 10-Not Attempted due to Environmental Limitations-(lack of equipment, weather restraints, etc.). 88-Not Attempted due to Medical Conditions or Safety Concerns. Roll Left to Right (QC): 3 (Demario) Sit to Lying (QC): 3 Sit to Stand (QC): 1 Chair/Rep-iy-Hcgiv Xfer(QC): 1 (sit to stand machine) Car Transfer (QC): 88 Gait Training Does the Patient Walk?: No and Walking Goal NOT indicated Walk 10 feet (QC): 88 Walk 50 ft with 2 Turns(QC): 88 Walk 150 ft (QC): 88 Walking 10ft/uneven surface-QC: 88 Wheelchair Training Does the Pt Use a Wheelchair?: Yes Distance: 100x2 Wheel 50 ft with 2 turns (QC): 4 Wheel 150 ft (QC): 88 Type of Wheelchair: Manual Stair Training 1 Step (curb) (QC): 88 4 Steps (QC): 88 12 Steps (QC): 88 Balance Picking up an Object (QC): 88 ADL-Treatment Eating (QC): 6 (Pt demonstrates ability to complete meal set up and uses regular utensils to eat.) Oral Hygiene (QC): 7 Bathing Location: L Arm, R Arm, L Upper Leg, R Upper Leg, L Lower Leg (including foot), R Lower Leg (including foot), Chest, Abdomen Shower/Bathe Self (QC): 1 Upper Body Dressing (QC): 5 Lower Body Dressing (QC): 1 On/Off Footwear (QC): 1 (Pt unable to reach feet in order to don/doff footwear. OT assisted with all parts of task. 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 Chronic anxiety PAF Anasarca CHF COPD OHS DM Poor venous access s/p PICC Emotionally labile Plan: Monitor closely Monitor AF Appreciate Josseline Contreras and Miguel BRANDEN wraps Full code per patient request PICC line placement tolerated TYSON with cardioversion successful Pastoral care at patient request 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 I don't think he is close to daypass yet (1) Myopathy Status: Acute (2) Atrial fibrillation (3) Anasarca (4) Fair prognosis (5) Debility (6) Molina catheter in place (7) Acute on chronic respiratory failure with hypoxia Status: Acute (8) LUIGI treated with BiPAP Status: Chronic (9) CKD (chronic kidney disease) Status: Chronic (10) COPD (chronic obstructive pulmonary disease) (11) Diabetes mellitus with hyperglycemia Status: Chronic (12) Obesity hypoventilation syndrome Status: Chronic (13) Pulmonary HTN Status: Chronic (14) Pulmonary edema Status: Acute (15) CAD (coronary artery disease) Status: Chronic (16) DVT prophylaxis Status: Acute (17) Lymphedema (18) Hypoxia Status: Acute (19) Respiratory insufficiency (20) Hypercapnia Status: Acute (21) Obesity Status: Acute (22) HTN (hypertension) Status: Acute YARIEL BUI DO Feb 20, 2019 12:17 POS
--- NOTE | 2019-02-20 17:11 | NUR ---
CONSENT FOR CYSTOSCOPY BY DR OWUSU WAS READ/UNDERSTOOD/SIGNED BY PATIENT.
[2019-02-20 17:14] VITALS: BP 132/64
[2019-02-20] MEDS: MELATONIN 3 MG TABLET PO PRN (20:04)
[2019-02-21] MEDS: predniSONE 20 MG TAB PO SCH (06:01)
[2019-02-21] MEDS: MULTIVIT W/MINERALS TAB (THERAGRAN M) PO SCH (06:01)
[2019-02-21] MEDS: inSUlin (REGULAR) HUMAN 1 UNIT/0.01 ML (CHARGE PER UNIT) SC SCH ×4 (06:02→21:51)
[2019-02-21 06:05] VITALS: BP 138/68
[2019-02-21] MEDS: ALPRAZolam 0.25 MG (XANAX) TAB PO PRN (06:45)
[2019-02-21 06:47] LABS: HEMOGLOBIN 8.3 G/DL (13.3-17.7); MEAN PLATELET VOLUME 10.2 FL (7.4-10.4); RED CELL DISTRIBUTION WIDTH 19.2 % (10.0-14.5); WHITE BLOOD COUNT 4.9 10^3/uL (4.3-11.0)
[2019-02-21 07:19] LABS: CALCIUM 8.6 MG/DL (8.5-10.1); CREATININE SERUM 1.58 MG/DL (0.60-1.30); PHOSPHORUS 2.8 MG/DL (2.3-4.7); POTASSIUM 4.3 MMOL/L (3.6-5.0)
[2019-02-21] MEDS: RT-ALBUTEROL/IPRATROPIUM 3 ML (DUONEB) VIAL INH SCH ×4 (07:30→19:27)
[2019-02-21] MEDS: RT-ADVAIR HFA 115/21 MCG PER PUFF IH SCH ×2 (07:31→19:27)
--- NOTE | 2019-02-21 08:21 | Progress Note ---
[employer] [facility] 02/21/19 0821: Progress Note Time: 0730 Subjective: Patient had difficulty using wheelchair to get to room Patient was using oxygen at that time Had to stop and rest during with activity Patient stated he was Sore, But everything was okay Objective: General: Obese, Chronically ill, Looked fatigued CV: RRR, Resp: Decreased breath sounds, Required oxygen via nasal Cannula. Extremities: Edema in LE bilaterally Assessment: Debility COPD Myopathy Renal Insufficiency Urine Retention, PAF Plan: Oxygen OAC Microspot albumin/creatinine Renal Ultrasound Cystoscopy Barriers to Home: -patient overall has poor prognosis. -many comorbidities overall limit overall activity -will look to place in senior care due to his care based needs SANDRA BUI DO 02/21/192034: Supervisory-Addendum Brief Verification & Attestation Participated in pt care: history, MDM, physical Personally performed: exam, history, MDM, supervision of care Care discussed with: Medical Student Procedures: n/a Results interpretation: Verified all documentation Verification and Attestation of Medical Student E/M Service A medical student performed and documented this service in my presence. I reviewed and verified all information documented by the medical student and made modifications to such information, when appropriate. I personally performed the physical exam and medical decision making. Sandra Bui, Feb 21, 2019,20:35 [employer]EIGN [employer] MED STUD Feb 21, 2019 08:21 SANDRA STERN DO Feb 21, 2019 20:35 POS
--- NOTE | 2019-02-21 08:26 | Cardiology Progress Note ---
Subjective Date Seen by Provider: Feb 21, 2019 Time Seen by Provider: 08:24 Subjective/Events-last exam Patient with PT, no new complaints. Reports dyspnea on exertion. Denies any chest pain. Review of Systems General: No Chills, No Night Sweats; Fatigue; No Malaise, No Appetite, No Other HEENT: No Head Aches, No Visual Changes, No Eye Pain, No Ear Pain, No Dysphasia , No Sinus Congestion, No Post Nasal Drip, No Sore Throat, No Other Pulmonary: Dyspnea; No Cough, No Pleuritic Chest Pain, No Other Cardiovascular: Edema; No: Chest Pain, Palpitations, Orthopnea, Paroxysmal Noc. Dyspnea, Lt Headedness, Other Objective-Cardiology Exam Last Set of Vital Signs Vital Signs 02/21/19 02/21/19 02/21/19 06:05 07:30 09:32 Temp 36.3 Pulse 63 Resp 18 B/P (MAP) 136/77 (96) Pulse Ox 94 O2 Delivery Nasal Cannula O2 Flow Rate 2.00 Capillary Refill : I&O Intake and Output 02/21/19 00:00 Intake Total 1910 ml Output Total 1125 ml Balance 785 ml Intake Oral 1910 ml Output Urine Total 1125 ml Bladder Scan Volume Amount 2 ml # Voids 2 # Bowel Movements 1 General: Alert, Oriented X3, Cooperative HEENT: Atraumatic, PERRLA Neck: Supple, No JVD, No Thyromegaly Lungs: Clear to Auscultation, Normal Air Movement Heart: Regular Rate, Normal S1, Normal S2, No Murmurs Abdomen: Normal Bowel Sounds, Soft Extremities: Other (BLE edema with C/D/I evelina wraps) Skin: No Rashes, No Significant Lesion Neuro: Normal Speech, Cranial Nerves 3-12 NL Psych/Mental Status: Mental Status NL, Mood NL Results Lab Laboratory Tests 02/21/19 05:15 A/P-Cardiology Admission Diagnosis COPD CAD PAF CKD Assessment/Plan Status post repiratory failure in Dec 2018, multifactorial, obesity- hypoventilation with cor pulmonale, ac exac of COPD due to pneumonia, managed by primary care team Chronic diastolic CHF, 2D Echo done 01/11/19 revealed LVEF 55-65%, left atrial dilatation, pulmonary hypertension with PA pressure 50-60 mmHg, continue to monitor PAF w/ RVR, underwent successful electrical cardioversion. Maintained on Lopressor, Amiodarone. continue on Eliquis and monitor Anemia, Started on Eliquis. Will need EGD/colonoscopy, can be done as an outpatient, continue to monitor H&H Hematuria- improved, Dr. Ramirez consulted and managing. Marked edema, chronic leg edema with intermittent cellulitis, continue to monitor CKD 3 and episodes of ac renal insuff due to diuretic therapy, monitor renal function Coronary artery disease, cath of 2014 showed coronary ectasia with slow flow, no significant obstructive disease Hyperlipidemia, continue to monitor Diabetes mellitus II Patient was seen and evaluated with Cyndie, examination performed, management plan was discussed, agree with the current scribed note, I made few changes to the note using Italic font Lungs were clear to auscultation, heart is regular Continue on current medication and monitor I will give one dose of Bumex and evaluate response to diuretics, monitor renal function closely Clinical Quality Measures DVT/VTE Risk/Contraindication: Risk Factor Score Per Nursin RFS Level Per Nursing on Admit: 4+=Very High Supervisory-Addendum Brief Supervisory Addendum Participated in pt care: history, MDM, physical Personally performed: exam, history, MDM Care discussed with: CYNDIE COOK Feb 21, 2019 08:26 AMI HINSON MD Feb 21, 2019 09:39 POS
[2019-02-21 09:32] VITALS: BP 136/77
[2019-02-21] MEDS: SILDENAFIL 20 MG (REVATIO) TAB NON-FORMULARY PO SCH ×3 (09:33→21:49)
[2019-02-21] MEDS: PANTOPRAZOLE 40 MG (PROTONIX) TAB PO SCH (09:33)
[2019-02-21] MEDS: AMIODARONE 200 MG (CORDARONE) TAB PO SCH ×2 (09:33→21:49)
[2019-02-21] MEDS: meTOprolol TARTRATE 50 MG (LOPRESSOR) TAB PO SCH ×2 (09:33→21:48)
[2019-02-21] MEDS: SENNA W/DOCUSATE (SENOKOT S) TABLET PO SCH ×2 (09:33→21:51)
[2019-02-21] MEDS: busPIRone 10 MG (BUSPAR) TAB PO SCH ×2 (09:33→21:49)
[2019-02-21] MEDS: LACTOBACILLUS ACIDOPHILUS (PROBIOTIC) CAPSULE PO SCH ×2 (09:33→21:48)
[2019-02-21] MEDS: DOCUSATE SODIUM 100 MG (COLACE) CAP PO SCH ×2 (09:33→21:51)
[2019-02-21] MEDS: FOLIC ACID 1 MG TAB PO SCH (09:33)
[2019-02-21] MEDS: APIXABAN 5 MG (ELIQUIS) TABLET PO SCH ×2 (09:33→21:48)
[2019-02-21] MEDS: AZITHROMYCIN 250 MG TAB (ZITHROMAX) PO SCH (09:33)
[2019-02-21] MEDS: hydrALAZINE (APRESOLINE) 25 MG TAB PO SCH ×2 (09:33→21:49)
[2019-02-21] MEDS: THEOPHYLLINE ER 400 MG TAB (THEO-24) PO SCH (09:33)
[2019-02-21] MEDS: NEO/POLY/BAC (NEOSPORIN) OINT 15 GM TUBE TOP SCH (09:34)
[2019-02-21] MEDS: ASCORBIC ACID (VIT C) 500 MG TABLET PO SCH (09:34)
[2019-02-21] MEDS: POLYETHYLENE GLYCOL 17 GM (MIRALAX) PACK PO SCH ×2 (09:44→21:51)
[2019-02-21] MEDS ORDERED: BUMETANIDE 1 MG (BUMEX) TAB PO ONE (09:45)
--- NOTE | 2019-02-21 09:45 | Physical Therapy Daily Note ---
PT Daily Note-Current Subjective Patient in room pre tx, on shower chair, just got through with shower with OT, has 4/10 pain in his legs. Will be co-treating with OT this morning due to impaired mobility, strength, sitting and standing balance, the need to coordinate UE and LE during activity. Appearance Patient in recliner post tx with nurse call, phone, tray, all needs met. Mental Status Patient Orientation: Normal For Age Attachments: Oxygen Transfers SCALE: Activities may be completed with or without assistive devices. 0-Mldkzkpcqu-uvgjsct completes the activity by him/herself with no assistance from a helper. 5-Set-up or Clean-up Assistance-helper sets up or cleans up; patient completes activity. [place] assists only prior to or following the activity. 4-Supervision or Touching Assistance-helper provides verbal cues and/or touching/steadying and/or contact guard assistance as patient completes activity. Assistance may be provided throughout the activity or intermittently. 3-Partial/Moderate Assistance-helper does LESS THAN HALF the effort. [place] lifts, holds or supports trunk or limbs, but provides less than half the effort. 2-Substantial/Maximal Assistance-helper does MORE THAN HALF the effort. [place] lifts or holds trunk or limbs and provides more than half the effort. 6-Oqekwbvdy-tgclot does ALL the effort. Patient does none of the effort to comp lete the activity. Or, the assistance of 2 or more helpers is required for the patient to complete the activity. If activity was not attempted, code reason: 7-Patient Refused. 9-Not Applicable-not attempted and the patient did not perform the activity before the current illness, exacerbation or injury. 10-Not Attempted due to Environmental Limitations-(lack of equipment, weather restraints, etc.). 88-Not Attempted due to Medical Conditions or Safety Concerns. Sit to Stand (QC): 1 Chair/Gik-ra-Nmjsz Xfer(QC): 1 sit to stand machine for transfers Weight Bearing Full Weight Bearing Full Weight Bearing Wheelchair Training Does the Pt Use a Wheelchair?: Yes Wheel 50 ft with 2 turns (QC): 5 Type of Wheelchair: Manual Propelled 100'x2 with SBA, needs multiple rest breaks, SOB. Exercises in parallel bars gets in position to stand and attempts to using arms and legs, he cannot get his bottom off the WC but practices getting in to position and using muscles to stand and strengthen. 3 sets of 5. WC pushups x10. LE leg press with manual resistance 3 sets of 10. Treatments WC mobility, strengthening exercises, transfers Assessment Current Status: Poor Progress Patient is very swollen no only in his legs but seemingly all over. Patient gets SOB very easily. PT Short Term Goals Short Term Goals Time Frame: Feb 18, 2019 Roll Left & Right: 4 (SBA) Sit to lyin (Demario) Lying to sitting on side of be: 3 Sit to stand: 2 (maxA) Chair/udo-ah-ckyqo transfer: 2 (maxA) PT Senior Living Goals Senior Living Goals PT Senior Living Goals Time Frame: Mar 04, 2019 Roll Left & Right (QC): 6 Sit to Lying (QC): 4 (SBA) Lying-Sitting on Side/Bed(QC): 4 (SBA) Sit to Stand (QC): 3 (Demario) Chair/Spr-fc-Ewenr Xfer(QC): 3 (Demario) Toilet Transfer (QC): 3 (Demario) Car Transfer (QC): 3 (Demario) Does the Patient Walk: No and Walking Goal IS indicated Walk 10 feet (QC): 3 (Demario) Walk 50ft with 2 Turns (QC): 3 (Demario) Walk 150 ft (QC): 88 Walking 10ft on Uneven Surface: 88 1 Step (curb) (QC): 3 (modA) 4 Steps (QC): 88 12 Steps (QC): 88 Picking up an Object (QC): 88 Does the Pt use WC or Scooter?: Yes Wheel 50 feet with 2 turns (QC: 6 Type: Manual Wheel 150 feet: 6 Type: Manual PT Plan Problem List Problem List: Activity Tolerance, Functional Strength, Safety, Balance, Gait, Transfer, Bed Mobility, ROM Treatment/Plan Treatment Plan: Continue Plan of Care Treatment Plan: Bed Mobility, Concurrent Therapy, Education, Functional Activity Johanna, Functional Strength, Group Therapy, Gait, Safety, Therapeutic Exercise, Transfers Treatment Duration: Mar 04, 2019 Frequency: At least 5 of 7 days/Wk (IRF) Estimated Hrs Per Day: 1.5 hours per day Patient and/or Family Agrees t: Yes Safety Risks/Education Patient Education: Transfer Techniques, Correct Positioning, W/C Management, Safety Issues Teaching Recipient: Patient Teaching Methods: Demonstration, Discussion Response to Teaching: Reinforcement Needed Time/GCodes Time In: 0800 Time Out: 0900 Total Billed Treatment Time: 60 Total Billed Treatment 1 visit [facility] 15' EX 15' FA 30' Co-treated for 60 min. PT worked on transfers, LE and strengthening, WC mobility, OT worked on UE positioning and transfers and cleaning/dressing. MARINO VEGA PT Feb 21, 2019 09:45 POS
--- NOTE | 2019-02-21 09:48 | PM&R Progress Note ---
Subjective HPI/CC On Admission Date Seen by Provider: Feb 21, 2019 Time Seen by Provider: 08:30 Subjective/Events-last exam M&ms were found in his room and he's had some very high sugars Very noncompliant with all treatments especially CPAP and BiPAP Edema still and issue Renal ultrasound will be done today, he panicked thinking it was an invasive test Xanax given early this morning Will DC daily labs due to phlebotomized status Dr. Matute will manage the partially removed toenail Overall prognosis is extremely poor Wants to try to go on a home visit but I do not think he is even nearly close enough to recovery to be able to have that success he would likely come back in respiratory failure Pt is appearing to be more and more end stage Conferred with RN Checked meds and labs Reviewed therapy notes Review of Systems General: Fatigue Pulmonary: Dyspnea Cardiovascular: Edema Objective Exam Vital Signs Vital Signs Date Time Temp Pulse Resp B/P (MAP) Pulse Ox O2 Delivery O2 Flow Rate FiO2 02/21/19 19:27 88 Nasal Cannula 2.00 02/21/19 18:51 66 02/21/19 16:00 36.4 16 147/79 (101) Capillary Refill : General Appearance: No Apparent Distress, WD/WN, Anxious, Chronically ill, Obese HEENT: PERRL/EOMI, Normal ENT Inspection, Pharynx Normal Neck: Full Range of Motion, Normal Inspection, Non Tender, Supple, Carotid Bruit Respiratory: Chest Non Tender, Lungs Clear, No Accessory Muscle Use, No Respiratory Distress, Decreased Breath Sounds Cardiovascular: Regular Rate, Rhythm, No Gallop, No JVD, No Murmur, Normal Peripheral Pulses Gastrointestinal: Normal Bowel Sounds, No Organomegaly, No Pulsatile Mass, Non Tender, Soft Back: Normal Inspection, No CVA Tenderness, No Vertebral Tenderness Extremity: Normal Capillary Refill, Normal Inspection, Normal Range of Motion, Non Tender, No Calf Tenderness, Pedal Edema Neurologic/Psychiatric: Alert, Oriented x3, No Motor/Sensory Deficits, Normal 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 FIM Transfers Therapy Code Descriptions/Definitions Functional [place] Measure: 0=Not Assessed/NA 4=Minimal Assistance 1=Total Assistance 5=Supervision or Setup 2=Maximal Assistance 6=Modified [place] 3=Moderate Assistance 7=Complete IndependenceSCALE: Activities may be completed with or without assistive devices. 8-Mnwikemkwh-wmrktlg completes the activity by him/herself with no assistance from a helper. 5-Set-up or Clean-up Assistance-helper sets up or cleans up; patient completes activity. [place] assists only prior to or following the activity. 4-Supervision or Touching Assistance-helper provides verbal cues and/or touching/steadying and/or contact guard assistance as patient completes activity. Assistance may be provided throughout the activity or intermittently. 3-Partial/Moderate Assistance-helper does LESS THAN HALF the effort. [place] lifts, holds or supports trunk or limbs, but provides less than half the effort. 2-Substantial/Maximal Assistance-helper does MORE THAN HALF the effort. [place] lifts or holds trunk or limbs and provides more than half the effort. 3-Grcgzbecl-oocsvl does ALL the effort. Patient does none of the effort to complete the activity. Or, the assistance of 2 or more helpers is required for the patient to complete the activity. If activity was not attempted, code reason: 7-Patient Refused. 9-Not Applicable-not attempted and the patient did not perform the activity before the current illness, exacerbation or injury. 10-Not Attempted due to Environmental Limitations-(lack of equipment, weather restraints, etc.). 88-Not Attempted due to Medical Conditions or Safety Concerns. Roll Left to Right (QC): 3 (Demario) Sit to Lying (QC): 3 Sit to Stand (QC): 1 Chair/Qoa-gc-Dforu Xfer(QC): 1 Car Transfer (QC): 88 Gait Training Does the Patient Walk?: No and Walking Goal NOT indicated Walk 10 feet (QC): 88 Walk 50 ft with 2 Turns(QC): 88 Walk 150 ft (QC): 88 Walking 10ft/uneven surface-QC: 88 Wheelchair Training Does the Pt Use a Wheelchair?: Yes Distance: 100x2 Wheel 50 ft with 2 turns (QC): 5 Wheel 150 ft (QC): 88 Type of Wheelchair: Manual Stair Training 1 Step (curb) (QC): 88 4 Steps (QC): 88 12 Steps (QC): 88 Balance Picking up an Object (QC): 88 ADL-Treatment Eating (QC): 6 (Pt demonstrates ability to complete meal set up and uses regular utensils to eat.) Oral Hygiene (QC): 7 Bathing Location: L Arm, R Arm, L Upper Leg, R Upper Leg, L Lower Leg (including foot), R Lower Leg (including foot), Chest, Abdomen Shower/Bathe Self (QC): 1 Upper Body Dressing (QC): 5 Lower Body Dressing (QC): 1 On/Off Footwear (QC): 1 (Pt unable to reach feet in order to don/doff footwear. OT assisted with all parts of task. 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 Chronic anxiety PAF Anasarca CHF COPD OHS DM Poor venous access s/p PICC Emotionally labile Plan: Monitor closely Monitor AF Appreciate Josseline Contreras and Miguel BRANDEN wraps Full code per patient request PICC line pulled out TYSON with cardioversion successful last week Pastoral care at patient request prn Counseled patient does need to use BiPAP I don't think he is close to daypass yet (1) Myopathy Status: Acute (2) Atrial fibrillation (3) Anasarca (4) Fair prognosis (5) Debility (6) Molina catheter in place (7) Acute on chronic respiratory failure with hypoxia Status: Acute (8) LUIGI treated with BiPAP Status: Chronic (9) CKD (chronic kidney disease) Status: Chronic (10) COPD (chronic obstructive pulmonary disease) (11) Diabetes mellitus with hyperglycemia Status: Chronic (12) Obesity hypoventilation syndrome Status: Chronic (13) Pulmonary HTN Status: Chronic (14) Pulmonary edema Status: Acute (15) CAD (coronary artery disease) Status: Chronic (16) DVT prophylaxis Status: Acute (17) Lymphedema (18) Hypoxia Status: Acute (19) Respiratory insufficiency (20) Hypercapnia Status: Acute (21) Obesity Status: Acute (22) HTN (hypertension) Status: Acute YARIEL BUI DO Feb 21, 2019 09:48 POS
--- NOTE | 2019-02-21 10:33 | Progress Note ---
Progress Note Time: 0740 Subjective: Patients family at bedside taking notes Patient does not complain of any pain Patient slept good Patient does not have any SOB, Fever, Cough, Burning on Urination. Patient is regular with BM and is urinating okay INR at 2.0 at 3.5 mg of coumadin Sodium at 132. Denies, Fevers, chills, Blurry vision, Eye pain, Ear pain, N/V, abdominal pain, SOB, Palpitations, Swelling, Objective: General: W/N, W/D, No distress HEENT: Neck Nontender and supple CV: RRR, 2/4 radial pulse bilaterally, no edema, Resp: CTAB, no accessory muscle use, no respiratory distress GI: No TTP Assessment: Chronic Hyponatremia renal Insufficiency Plan: Limit fluid intake Barriers to home: - Barriers FOREIGN NUNEZ MED STUDEN Feb 21, 2019 10:33 POS
--- NOTE | 2019-02-21 13:00 | Occupational Ther Daily Note ---
OT Current Status-Daily Note Subjective Pt alert, sitting in recliner. Pt stated that he has been having panic attacks when in bed. Also stated that he is getting a procedure to look at his bladder today. Pt agrees to therapy. Mental Status/Objective Patient Orientation: Person, Place, Time, Situation ADL-Treatment OT/PT cotreat for 60 min, skills of 2 clinicians required due to pt's impaired mobility, strength, sitting and standing balance, the need to coordinate UE and LE during activity. Sit<-->stand lift used for all transfers. Pt transferred to transport shower chair then transported to large shower room. Pt able to complete shower using shower chair with cutout, hand held shower and long handle sponge for 90% of body, assist to cleanse buttocks. Assist to dry lower legs, buttocks, ovi area and under abdomen. Pt able to don/doff hospital gown by self, dependent for socks. Therapy Code Descriptions/Definitions Functional [place] Measure: 0=Not Assessed/NA 4=Minimal Assistance 1=Total Assistance 5=Supervision or Setup 2=Maximal Assistance 6=Modified [place] 3=Moderate Assistance 7=Complete IndependenceSCALE: Activities may be completed with or without assistive devices. 0-Nrcvrjnbzu-dwrecic completes the activity by him/herself with no assistance from a helper. 5-Set-up or Clean-up Assistance-helper sets up or cleans up; patient completes activity. [place] assists only prior to or following the activity. 4-Supervision or Touching Assistance-helper provides verbal cues and/or touching/steadying and/or contact guard assistance as patient completes acti vity. Assistance may be provided throughout the activity or intermittently. 3-Partial/Moderate Assistance-helper does LESS THAN HALF the effort. [place] lifts, holds or supports trunk or limbs, but provides less than half the effort. 2-Substantial/Maximal Assistance-helper does MORE THAN HALF the effort. [place] lifts or holds trunk or limbs and provides more than half the effort. 1-Eorhxdxvm-rhbowa does ALL the effort. Patient does none of the effort to complete the activity. Or, the assistance of 2 or more helpers is required for the patient to complete the activity. If activity was not attempted, code reason: 7-Patient Refused. 9-Not Applicable-not attempted and the patient did not perform the activity before the current illness, exacerbation or injury. 10-Not Attempted due to Environmental Limitations-(lack of equipment, weather restraints, etc.). 88-Not Attempted due to Medical Conditions or Safety Concerns. Shower/Bathe Self (QC): 2 Other Treatment OT focused on UE strengthening/positioning and ADLs. Pt worked on arm chair pushups though unable to lift body up from chair. Pt fatigues quickly with each task, but attempts each. Exercises for UE's to increase strength for daily functional tasks. After therapy, pt sitting in recliner with call light/phone in reach. All needs met in room. OT Short Term Goals Short Term Goals Time Frame: Feb 25, 2019 Toileting hygiene: 2 Lower body dressin Putting on/taking off footwear: 2 OT Smog Technician Goals Assisted Goals Time Frame: Mar 11, 2019 Eating (QC): 6 Oral Hygiene (QC): 6 Toileting Hygiene (QC): 6 Shower/Bathe Self (QC): 6 Upper Body Dressing (QC): 6 Lower Body Dressing (QC): 6 On/Off Footwear (QC): 6 Additional Goals: 1-Demonstrate ADL Tasks, 2-Verbalize Understanding, 3- ImproveStrength/Johanna 1=Demonstrate adherence to instructed precautions during ADL tasks. 2=Patient will verbalize/demonstrate understanding of assistive devic es/modifications for ADL. 3=Patient will improve strength/tolerance for activity to enable patient to perform ADL's. OT Education/Plan Problem List/Assessment Assessment: Decreased Activ Tolerance, Decreased UE Strength, Dependent Transfers, Impaired Bed Mobility, Impaired Coordination, Impaired Funct Balance, Impaired I ADL's Discharge Recommendations Plan/Recommendations: Continue POC Treatment Plan/Plan of Care Patient would benefit from OT for education, treatment and training to promote independence in ADL's, mobility, safety and/or upper extremity function for ADL's. Plan of Care: ADL Retraining, Caregiver Training, Functional Mobility, Group Exercise/Act as Ind, UE Funct Exercise/Act Treatment Duration: Mar 11, 2019 Frequency: At least 5 of 7 days/Wk (IRF) Estimated Hrs Per Day: 1.5 hours per day Agreement: Yes Rehab Potential: Guarded Time/GCodes Start Time: 07:30 Stop Time: 09:00 Total Time Billed (hr/min): 90 Billed Treatment Time 1 visit-ADL 2 (30 min) FA 4 (60 min) TERRA SHAW Feb 21, 2019 13:00 POS
--- NOTE | 2019-02-21 13:02 | NUR ---
Discharge Planning Patient overall care needs have been discussed with him by physician and various involved team members. He understands his recovery and recuperation now appears to be more appropriate for a retirement facility environment. Patient is in complete agreement for this transition. Provided Medicare Compare information and reviewed SNFs in patient service area. His was decisive in a short amount of time that he wanted a referral completed with [facility] because his is employed with [employer] under the [employer] and he wanted the [place] location as closest to his home in [place]. Referral completed with MOISÉS/Vivi White at [facility], faxed clinical. They will discuss as a team, await confirmation of acceptance. Patient has never had SNF placement, CARE Assessment will be required. Addendum: 02/21/19 at 1517 by RIYA SINGH SS Update from CATIE/Vivi Hart Initial review completed, they did speak with his spouse due to him having only Medicare without a supplement. Some discussion about exploring Medicaid. Invited [facility] team to come meet patient to explore potential for progress during his 20 day Medicare skilled benefit.
--- NOTE | 2019-02-21 14:00 | Physical Therapy Daily Note ---
PT Daily Note-Current Subjective Pt agreeable to PT session. Requesting to get up out of bed. States bed is not comfortable enough and has been sleeping in recliner at night. Pain Numeric Pain Scale: 0-No Pain Appearance Pt in bed upon arrival. Pt requesting to get out of bed and up into recliner. At end of session, pt sitting up in recliner, call light, phone and bedside table within reach. Mental Status Patient Orientation: Person, Place, Time, Eyes Open, Situation Attachments: Oxygen (2L/NC) Transfers SCALE: Activities may be completed with or without assistive devices. 4-Smxomckxfe-dlmlqgw completes the activity by him/herself with no assistance from a helper. 5-Set-up or Clean-up Assistance-helper sets up or cleans up; patient completes activity. [place] assists only prior to or following the activity. 4-Supervision or Touching Assistance-helper provides verbal cues and/or touching/steadying and/or contact guard assistance as patient completes activity. Assistance may be provided throughout the activity or intermittently. 3-Partial/Moderate Assistance-helper does LESS THAN HALF the effort. [place] lifts, holds or supports trunk or limbs, but provides less than half the effort. 2-Substantial/Maximal Assistance-helper does MORE THAN HALF the effort. [place] lifts or holds trunk or limbs and provides more than half the effort. 4-Znmwqboao-ufhgfg does ALL the effort. Patient does none of the effort to complete the activity. Or, the assistance of 2 or more helpers is required for the patient to complete the activity. If activity was not attempted, code reason: 7-Patient Refused. 9-Not Applicable-not attempted and the patient did not perform the activity before the current illness, exacerbation or injury. 10-Not Attempted due to Environmental Limitations-(lack of equipment, weather restraints, etc.). 88-Not Attempted due to Medical Conditions or Safety Concerns. Roll Left & Right (QC): 3 Lying to Sitting/Side of Bed(Q: 3 bed to recliner transfer using stand transfer lift Weight Bearing Full Weight Bearing Full Weight Bearing Exercises Supine Ex: Short Arc Quads (10 x2), Straight leg raise (AAROM), Hip abd/add (10 x2) Supine Reps: 10 (x2 in recliner with LE's elevated) Seated Therapy Exercises: Ankle pumps (2x15), Long arc quads (x10, x5 x2), Chair press-ups (5 x2), Hip flexion (5, 7), Hamstring Curls (against recliner leg rest, x10 x2), Hip abd/add (10 x2) Treatments education, safety, bed mobility, strength, HEP inst to perform chair pushups x5 reps every hour, activity tolerance, functional mobility Assessment fatigue, lightheaded and SOA with ex's requiring several rest breaks PT Short Term Goals Short Term Goals Time Frame: Feb 18, 2019 Roll Left & Right: 4 (SBA) Sit to lyin (Demario) Lying to sitting on side of be: 3 Sit to stand: 2 (maxA) Chair/hma-hh-dlfps transfer: 2 (maxA) PT [facility] Goals Chief Compliance Officer Goals PT [facility] Goals Time Frame: Mar 04, 2019 Roll Left & Right (QC): 6 Sit to Lying (QC): 4 (SBA) Lying-Sitting on Side/Bed(QC): 4 (SBA) Sit to Stand (QC): 3 (Demario) Chair/Ufi-kw-Fcqsq Xfer(QC): 3 (Demario) Toilet Transfer (QC): 3 (Demario) Car Transfer (QC): 3 (Demario) Does the Patient Walk: No and Walking Goal IS indicated Walk 10 feet (QC): 3 (Demraio) Walk 50ft with 2 Turns (QC): 3 (Demario) Walk 150 ft (QC): 88 Walking 10ft on Uneven Surface: 88 1 Step (curb) (QC): 3 (modA) 4 Steps (QC): 88 12 Steps (QC): 88 Picking up an Object (QC): 88 Does the Pt use WC or Scooter?: Yes Wheel 50 feet with 2 turns (QC: 6 Type: Manual Wheel 150 feet: 6 Type: Manual PT Plan Treatment/Plan Treatment Plan: Continue Plan of Care Treatment Plan: Bed Mobility, Concurrent Therapy, Education, Functional Activity Johanna, Functional Strength, Group Therapy, Gait, Safety, Therapeutic Exercise, Transfers Treatment Duration: Mar 04, 2019 Frequency: At least 5 of 7 days/Wk (IRF) Estimated Hrs Per Day: 1.5 hours per day Patient and/or Family Agrees t: Yes Safety Risks/Education Patient Education: Safety Issues Teaching Recipient: Patient Teaching Methods: Discussion Response to Teaching: Verbalize Understanding Time/GCodes Time In: 1345 (1500) Time Out: 1400 (1515) Total Billed Treatment Time: 30 Total Billed Treatment 1 visit, EX x30 min ERIKA FARRAR PTA Feb 21, 2019 14:00 POS
--- NOTE | 2019-02-21 15:09 | Diagnostic Imaging Report ---
PROCEDURE: US Renal Bilateral. TECHNIQUE: Multiple Real-time grayscale images were obtained over the kidneys in various projections bilaterally. INDICATION: Gross hematuria. FINDINGS: The right kidney measures 12.1 x 7.7 x 6.1 cm and the left kidney is 12.1 x 6.1 x 6.9 cm. The overall examination is somewhat limited due to the patient's body habitus. Both kidneys grossly demonstrate normal renal cortical thickness and echogenicity. There is no hydronephrosis, calculus, or mass. Neither ureteral jet was visualized. IMPRESSION: Technically limited exam due to body habitus. The kidneys grossly demonstrate a normal sonographic appearance. Dictated by: Dictated on workstation # [id number]
[2019-02-21 16:00] VITALS: BP 147/79
--- NOTE | 2019-02-21 18:18 | NUR ---
Earlier in day, this nurse noted open area to inner right gluteal cheek. Reported to Dr. Villagomez. Consult obtained for Dr. Miner, Wound Physician. Dr. Miner to see patient, order obtained for [employer].
--- NOTE | 2019-02-21 19:20 | NUR ---
YELLING OUT. STATES CANNOT TOLERATE LYING IN BED ANY MORE. UP TO RECLINER WITH [id number].
--- NOTE | 2019-02-21 19:28 | Wound Care Assessment ---
Wound Care Assessment Date Seen by Provider: Feb 21, 2019 Time Seen by Provider: 18:10 Chief Complaint R buttock ulcer. HPI The patient is a 63 year old male with limited mobility, obesity and a shear injury to macerated tissue of the R buttock. Barrier cream is in use and the patient does transfers with a Gdm-ge-Wtgpt device. He is urged to avoid scooting. Continue same. Past Medical History: Admits Diabetes Type II, Admits Heart Disease Smoking Status: Former Smoker Recreational Drug Use: No Alcohol Use: Occasionally Uses Review of Systems Pulmonary: Dyspnea Cardiovascular: No: Chest Pain Exam Vital Signs Date Time Temp Pulse Resp B/P (MAP) Pulse Ox O2 Delivery O2 Flow Rate FiO2 02/21/19 16:00 36.4 59 16 147/79 (101) 98 Nasal Cannula 2.00 Capillary Refill : Skin: other (R buttock -- 3.0 x 1.5 x 0.2 cm, base 100% regenerating tissue. No evidence of pressure type injury.) Results Laboratory Tests 02/20/19 20:15: Glucometer 287H 02/21/19 05:15: White Blood Count 4.9, Red Blood Count 2.88L, Hemoglobin 8.3L, Hematocrit 27L, Mean Corpuscular Volume 95, Mean Corpuscular Hemoglobin 29, Mean Corpuscular Hemoglobin Concent 30L, Red Cell Distribution Width 19.2H, Platelet Count 245, Mean Platelet Volume 10.2, Sodium Level 140, Potassium Level 4.3, Chloride Level 96L, Carbon Dioxide Level 34H, Anion Gap 10, Blood Urea Nitrogen 38H, Creatinine 1.58H, Estimat Glomerular Filtration Rate 45, BUN/Creatinine Ratio 24, Glucose Level 177H, Calcium Level 8.6, Phosphorus Level 2.8, Magnesium Level 2.0 02/21/19 05:53: Glucometer 228H 02/21/19 10:58: Glucometer 324H 02/21/19 15:24: Glucometer 207H Microbiology 02/15/19 MRSA Screen - Final, Complete MRSA not isolated Assessment/Plan/Dx 1. Partial thickness moisture injury, R buttock. 2. Morbid obesity. Plan: Moisture control and off-loading as recommended. DAVID AYOUB MD Feb 21, 2019 19:28
[2019-02-21 20:00] VITALS: BP 138/69
[2019-02-21] MEDS ORDERED: ZINC OXIDE 16% OINT (BUTT PASTE) 113 GM TUBE TOP PRN (20:00)
[2019-02-21] MEDS: MELATONIN 3 MG TABLET PO PRN (22:01)
--- NOTE | 2019-02-21 23:30 | NUR ---
SLEEPING BETTER IN CHAIR. REFUSES TO GET BACK IN BED, BUT LEANING TO LEFT SIDE TO STAY OFF SORE ON RIGHT BOTTOM.
--- NOTE | 2019-02-21 23:41 | CONSULTATION REPORT ---
DATE OF SERVICE: REASON FOR CONSULTATION: Continuation of foot care. HISTORY OF PRESENT ILLNESS: This is a 63-year-old male who was seen last week for nail avulsion of the left 4th digit. The loose nail was removed and wound care has been performed on a daily basis. The patient denies any pain or excessive amount of discharge from the lesion. The wound care has been performed on a daily basis protecting the toe. He has also been performing heel pressure precautions. The patient indicates that he has difficulty reaching for and caring for his feet and last week, I did not have the appropriate instrumentation to perform an appropriate nail debridement. The patient has asked for nail care due to his nails being so long and catching on sheets and socks. PHYSICAL EXAMINATION: EXTREMITIES: The patient has 0/4 dorsalis pedis pulse, 0/4 posterior tibial pulse bilaterally. Cap refill time is less than 3 seconds, 3+ pitting edema bilaterally. NEUROLOGIC: The patient has absent protective sensation per 10 gram monofilament wire examination bilaterally. He has diminished light touch sensation and vibratory sensation bilaterally. DERMATOLOGIC: The patient has minimal serosanguineous drainage to gauze dressing, dorsal aspect of the nail bed on the left fourth digit. No erythema. No proximal streaking, no signs bacterial infection. MUSCULOSKELETAL FINDINGS: The patient has adductovarus contracture of the fifth toe bilaterally, 4/5 muscle strength to the four major quadrants of the foot bilaterally. ASSESSMENT: Diabetic neuropathy, edema, history of the nail avulsion, contusion left fourth toe, onychomycosis, Hammer digit syndrome. PLAN: The patient's toenails were debrided today manually and mechanically. Betadine applied to the right first, second, third, fourth, and fifth digit as well as the left first, second and fifth digits, they were long, thick, dystrophic, and discolored. We discussed diabetic foot care at length. The patient is welcome to follow up upon discharge in my office. Job ID: [id number] DocumentID: [id number] Dictated Date: 02/21/2019 17:21:19 Inventory Specialist Manager Date: 02/21/2019 23:40:55 Dictated By: COLLEEN REARDON DPM
--- NOTE | 2019-02-22 01:05 | NUR ---
RECEIVED REPORT FROM KORY MENDOZA. THIS RN TO ASSUME CARE OF PT AT THIS TIME.
[2019-02-22 05:54] VITALS: BP 138/75
--- NOTE | 2019-02-22 05:57 | Progress Note ---
[facility] 02/22/19 0557: Progress Note TIme: [id number] Discharge Date: 02/22/19 Hospital Course: 63 yo male was admitted to the in-patient rehab floor on 02/11/19 from [facility] and is discharged 02/22/19 to a fpc. Patient is admitted to regain ambulation skills and ADL's. PMH is pertinent for COPD myopathy, OHA, AF, and [place]. Patient has been admitted to the hospital in the past for acute exacerbations. Dr. Contreras (pulmonology), Dr. Rivera (Cardiology), Dr. Bui (Hospitalist) provided care for the patient. Patients anemia remained stable around 8.3. Glucose level averaged 280's and GFR averaged 45. PICC line placement on 02/14/19. Renal ultrasound was limited. Patient had poor progress due to multiple comorbidities. Patient is to follow medications outlined in the discharge and is also to follow-up as discussed in the discharge instructions. The following information is only a summary of the patient admission while at [facility] and is not all inclusive. Please review entire chart for more information. : SANDRA BUI DO 02/22/19 2113: Supervisory-Addendum Brief Verification & Attestation Participated in pt care: history, MDM, physical Personally performed: exam, history, MDM, supervision of care Care discussed with: Medical Student Procedures: n/a Results interpretation: Verified all documentation Verification and Attestation of Medical Student E/M Service A medical student performed and documented this service in my presence. I reviewed and verified all information documented by the medical student and made modifications to such information, when appropriate. I personally performed the physical exam and medical decision making. Sandra Bui, Feb 22, 2019,21:13 [facility] Feb 22, 2019 05:57 SANDRA STERN DO Feb 22, 2019 21:13 POS
[2019-02-22] MEDS: MULTIVIT W/MINERALS TAB (THERAGRAN M) PO SCH (06:19)
[2019-02-22] MEDS: inSUlin (REGULAR) HUMAN 1 UNIT/0.01 ML (CHARGE PER UNIT) SC SCH ×2 (06:19→11:45)
[2019-02-22] MEDS: predniSONE 20 MG TAB PO SCH (06:20)
[2019-02-22] MEDS: RT-ALBUTEROL/IPRATROPIUM 3 ML (DUONEB) VIAL INH SCH ×2 (06:54→11:17)
[2019-02-22] MEDS: RT-ADVAIR HFA 115/21 MCG PER PUFF IH SCH (06:54)
--- NOTE | 2019-02-22 07:15 | Progress Note-Pre Operative ---
Pre-Operative Progress Note H&P Reviewed The H&P was reviewed, patient examined and no changes noted. Date Seen by Provider: Feb 22, 2019 Time Seen by Provider: 07:14 Date H&P Reviewed: Feb 16, 2019 Time H&P Reviewed: 07:14 Pre-Operative Diagnosis: GROSS HEMATURIA MARGARITO OWUSU MD Feb 22, 2019 07:14 POS
--- NOTE | 2019-02-22 07:20 | Progress Note-Post Operative ---
Post-Operative Progess Note Surgeon (s)/Sugar Drier (s) Surgeon MARGARITO OWUSU MD Sugar Drier: NONE Pre-Operative Diagnosis GROSS HEMATURIA Post-Operative Diagnosis SAME Procedure & Operative Findings Date of Procedure 02/22/19 Procedure Performed/Findings CYSTOSCOPY Anesthesia Type LOCAL Estimated Blood Loss Estimated blood loss (mL): NONE Specimens/Packing Specimens Removed NONE Packing: NONE MARGARITO OWUSU MD Feb 22, 2019 07:20 POS
[2019-02-22] MEDS: LACTOBACILLUS ACIDOPHILUS (PROBIOTIC) CAPSULE PO SCH (08:29)
[2019-02-22] MEDS: busPIRone 10 MG (BUSPAR) TAB PO SCH (08:29)
[2019-02-22] MEDS: FOLIC ACID 1 MG TAB PO SCH (08:29)
[2019-02-22] MEDS: meTOprolol TARTRATE 50 MG (LOPRESSOR) TAB PO SCH (08:29)
[2019-02-22] MEDS: PANTOPRAZOLE 40 MG (PROTONIX) TAB PO SCH (08:30)
[2019-02-22] MEDS: SENNA W/DOCUSATE (SENOKOT S) TABLET PO SCH (08:30)
[2019-02-22] MEDS: AMIODARONE 200 MG (CORDARONE) TAB PO SCH (08:30)
[2019-02-22] MEDS: APIXABAN 5 MG (ELIQUIS) TABLET PO SCH (08:30)
[2019-02-22] MEDS: DOCUSATE SODIUM 100 MG (COLACE) CAP PO SCH (08:30)
[2019-02-22] MEDS: ASCORBIC ACID (VIT C) 500 MG TABLET PO SCH (08:30)
--- NOTE | 2019-02-22 08:30 | Cardiology Progress Note ---
Subjective Date Seen by Provider: Feb 22, 2019 Time Seen by Provider: 08:29 Subjective/Events-last exam Patient is up with PT, complaining of occasional episode of dizziness. Denies any chest pain Objective-Cardiology Exam Last Set of Vital Signs Vital Signs 02/22/19 02/22/19 02/22/19 05:54 07:00 11:17 Temp 36.3 Pulse 60 Resp 20 B/P (MAP) 138/75 (96) Pulse Ox 91 O2 Delivery Nasal Cannula O2 Flow Rate 2.00 Capillary Refill : I&O Intake and Output 02/22/19 00:00 Intake Total 1380 ml Output Total 1545 ml Balance -165 ml Intake Oral 1380 ml Output Urine Total 1545 ml # Bowel Movements 1 General: Alert, Oriented X3, Cooperative HEENT: Atraumatic, PERRLA Neck: Supple, No JVD, No Thyromegaly Lungs: Clear to Auscultation, Normal Air Movement Heart: Regular Rate, Normal S1, Normal S2, No Murmurs Abdomen: Normal Bowel Sounds, Soft Extremities: Other (BLE edema ) Skin: No Rashes, No Significant Lesion Neuro: Normal Speech, Cranial Nerves 3-12 NL Psych/Mental Status: Mental Status NL, Mood NL A/P-Cardiology Admission Diagnosis COPD CAD PAF CKD Assessment/Plan Status post repiratory failure in Dec 2018, multifactorial, obesity- hypoventilation with cor pulmonale, ac exac of COPD due to pneumonia, managed by primary care team Chronic diastolic CHF, 2D Echo done 01/11/19 revealed LVEF 55-65%, left atrial dilatation, pulmonary hypertension with PA pressure 50-60 mmHg, continue to monitor PAF w/ RVR, underwent successful electrical cardioversion. Maintained on Lopressor, Amiodarone. continue on Eliquis. Complaining of episode of dizziness, HR in the 50's, I will decrease Lopressor to 50mg BID, continue to monitor. Anemia, Started on Eliquis. Will need EGD/colonoscopy, can be done as an outpatient, continue to monitor H&H Hematuria- improved, Dr. Ramirez consulted and managing. Marked edema, chronic leg edema with intermittent cellulitis, continue to mo nitor CKD 3 and episodes of ac renal insuff due to diuretic therapy, monitor renal function Coronary artery disease, cath of 2014 showed coronary ectasia with slow flow, no significant obstructive disease Hyperlipidemia, continue to monitor Diabetes mellitus II Clinical Quality Measures DVT/VTE Risk/Contraindication: Risk Factor Score Per Nursin RFS Level Per Nursing on Admit: 4+=Very High CYNDIE SHELDON Feb 22, 2019 08:30 POS
[2019-02-22] MEDS: hydrALAZINE (APRESOLINE) 25 MG TAB PO SCH (08:31)
[2019-02-22] MEDS: THEOPHYLLINE ER 400 MG TAB (THEO-24) PO SCH (08:31)
[2019-02-22] MEDS: SILDENAFIL 20 MG (REVATIO) TAB NON-FORMULARY PO SCH (08:31)
--- NOTE | 2019-02-22 08:41 | Physical Therapy Daily Note ---
PT Daily Note-Current Subjective Patient in recliner pre tx, agrees to PT, has no complaints of pain at rest. Will be co-treating with OT this morning due to poor patient strength, endurance, mobility, inability to stand, the need to coordinate UE and LE during activity. Appearance Patient in bed post tx with nurse call, had to get back to his room early for a cysto, nurses for that in room when therapy left. Mental Status Patient Orientation: Normal For Age Attachments: Oxygen Transfers SCALE: Activities may be completed with or without assistive devices. 0-Lnxvunurzp-ucnwjfm completes the activity by him/herself with no assistance from a helper. 5-Set-up or Clean-up Assistance-helper sets up or cleans up; patient completes activity. [place] assists only prior to or following the activity. 4-Supervision or Touching Assistance-helper provides verbal cues and/or touching/steadying and/or contact guard assistance as patient completes activity. Assistance may be provided throughout the activity or intermittently. 3-Partial/Moderate Assistance-helper does LESS THAN HALF the effort. [place] lifts, holds or supports trunk or limbs, but provides less than half the effort. 2-Substantial/Maximal Assistance-helper does MORE THAN HALF the effort. [place] lifts or holds trunk or limbs and provides more than half the effort. 3-Uhpzrkhow-odklck does ALL the effort. Patient does none of the effort to complete the activity. Or, the assistance of 2 or more helpers is required for the patient to complete the activity. If activity was not attempted, code reason: 7-Patient Refused. 9-Not Applicable-not attempted and the patient did not perform the activity before the current illness, exacerbation or injury. 10-Not Attempted due to Environmental Limitations-(lack of equipment, weather restraints, etc.). 88-Not Attempted due to Medical Conditions or Safety Concerns. Roll Left & Right (QC): 2 Sit to Lying (QC): 2 Chair/Jno-iv-Zarwv Xfer(QC): 1 Sit to stand machine for transfers, patient needed assist with both legs getting back into bed. Weight Bearing Full Weight Bearing Full Weight Bearing Wheelchair Training Does the Pt Use a Wheelchair?: Yes Wheel 50 ft with 2 turns (QC): 4 Type of Wheelchair: Manual WC 100'x2 with SBA, tends to go through doorways too sharply and rubs his wheels on the door frame Exercises In parallel bars scoots forward in WC getting in position to stand, bears weight through legs and arms, attempts to stand using muscles required 3 sets of 5. Treatments dressing, bed mobility and transfers, WC mobility, attempted standing. Assessment Current Status: Poor Progress No change in functional mobility. Patient had to leave therapy early and get back to his bed for cysto. Patient has a lot of edema. PT Short Term Goals Short Term Goals Time Frame: Feb 18, 2019 Roll Left & Right: 4 (SBA) Sit to lyin (Demario) Lying to sitting on side of be: 3 Sit to stand: 2 (maxA) Chair/lfl-nz-bdmko transfer: 2 (maxA) PT Assistive Technology Trainer Goals Half-Way Goals PT Half-Way Goals Time Frame: Mar 04, 2019 Roll Left & Right (QC): 6 Sit to Lying (QC): 4 (SBA) Lying-Sitting on Side/Bed(QC): 4 (SBA) Sit to Stand (QC): 3 (Demario) Chair/Sbc-ih-Qffmo Xfer(QC): 3 (Demario) Toilet Transfer (QC): 3 (Demario) Car Transfer (QC): 3 (Demario) Does the Patient Walk: No and Walking Goal IS indicated Walk 10 feet (QC): 3 (Demario) Walk 50ft with 2 Turns (QC): 3 (Demario) Walk 150 ft (QC): 88 Walking 10ft on Uneven Surface: 88 1 Step (curb) (QC): 3 (modA) 4 Steps (QC): 88 12 Steps (QC): 88 Picking up an Object (QC): 88 Does the Pt use WC or Scooter?: Yes Wheel 50 feet with 2 turns (QC: 6 Type: Manual Wheel 150 feet: 6 Type: Manual PT Plan Problem List Problem List: Activity Tolerance, Functional Strength, Safety, Balance, Gait, Transfer, Bed Mobility, ROM Treatment/Plan Treatment Plan: Continue Plan of Care Treatment Plan: Bed Mobility, Concurrent Therapy, Education, Functional Activity Johanna, Functional Strength, Group Therapy, Gait, Safety, Therapeutic Exercise, Transfers Treatment Duration: Mar 04, 2019 Frequency: At least 5 of 7 days/Wk (IRF) Estimated Hrs Per Day: 1.5 hours per day Patient and/or Family Agrees t: Yes Safety Risks/Education Patient Education: Transfer Techniques, Correct Positioning, W/C Management, Safety Issues Teaching Recipient: Patient Teaching Methods: Demonstration, Discussion Response to Teaching: Reinforcement Needed Time/GCodes Time In: 0800 Time Out: 08 Total Billed Treatment Time: 45 Total Billed Treatment 1 visit FA 45' PT worked on bed mobility and transfers and WC mobility and attempted standing, OT worked on dressing, assist with transfers, UE positioning during activity. MARINO VEGA PT Feb 22, 2019 08:41 POS
--- NOTE | 2019-02-22 08:43 | Occupational Ther Daily Note ---
OT Current Status-Daily Note Subjective Pt alert, sitting in recliner. [employer] benefits representative came into room and interviewed pt. Pt agrees to therapy. C/o being tired and not being able to sleep. During therapy, surgery came to complete a procedure. Mental Status/Objective Patient Orientation: Person, Place, Time, Situation ADL-Treatment Pt able to complete sponge bathing for upper body and assist with lower body and buttocks/ovi area. Pt donned shirt after set up. Pt attempted to don pants, assist to don over feet then using sit to stand lift to hike pants up over hips with assist x2. Ointments applied to buttocks and crease under abdomen. Therapy Code Descriptions/Definitions Functional Martha Measure: 0=Not Assessed/NA 4=Minimal Assistance 1=Total Assistance 5=Supervision or Setup 2=Maximal Assistance 6=Modified Martha 3=Moderate Assistance 7=Complete IndependenceSCALE: Activities may be completed with or without assistive devices. 1-Ixellpkcav-khqmene completes the activity by him/herself with no assistance from a helper. 5-Set-up or Clean-up Assistance-helper sets up or cleans up; patient completes activity. [place] assists only prior to or following the activity. 4-Supervision or Touching Assistance-helper provides verbal cues and/or touching/steadying and/or contact guard assistance as patient completes activity. Assistance may be provided throughout the activity or intermittently. 3-Partial/Moderate Assistance-helper does LESS THAN HALF the effort. [place] lifts, holds or supports trunk or limbs, but provides less than half the effort. 2-Substantial/Maximal Assistance-helper does MORE THAN HALF the effort. [place] lifts or holds trunk or limbs and provides more than half the effort. 1-Jmenrjyxx-imegwl does ALL the effort. Patient does none of the effort to complete the activity. Or, the assistance of 2 or more helpers is required for the patient to complete the activity. If activity was not attempted, code reason: 7-Patient Refused. 9-Not Applicable-not attempted and the patient did not perform the activity before the current illness, exacerbation or injury. 10-Not Attempted due to Environmental Limitations-(lack of equipment, weather restraints, etc.). 88-Not Attempted due to Medical Conditions or Safety Concerns. Upper Body Dressing (QC): 5 Lower Body Dressing (QC): 1 (footwear (QC) 2) Other Treatment OT/PT cotreat for 45 min, skills of 2 clinicians required due to pt's impaired mobility, strength, sitting and standing balance, the need to coordinate UE and LE during activity. Sit<-->stand lift used for all transfers. Pt was able to propel w/c to and from room/therapy gym with multiple recovery breaks. Pt working on UE strengthening by attempting to pull to cabin service agent parallel bars, unable to lift buttocks of seat. Max A to lift LE's into bed, pt positioned upper body. Assist x2 for bed mobility. After therapy, nrsg in room and pt lying in bed. All needs met in room. OT Short Term Goals Short Term Goals Time Frame: Feb 25, 2019 Toileting hygiene: 2 Lower body dressin Putting on/taking off footwear: 2 OT Fpc Goals Fpc Goals Time Frame: Mar 11, 2019 Eating (QC): 6 (met-02/22/19) Oral Hygiene (QC): 6 (met-02/1019) Toileting Hygiene (QC): 6 (not met) Shower/Bathe Self (QC): 6 (notmet) Upper Body Dressing (QC): 6 (not met) Lower Body Dressing (QC): 6 (not met) On/Off Footwear (QC): 6 (not met) Additional Goals: 1-Demonstrate ADL Tasks, 2-Verbalize Understanding, 3-ImproveStrength/Johanna 1=Demonstrate adherence to instructed precautions during ADL tasks. 2=Patient will verbalize/demonstrate understanding of assistive devices/modifications for ADL. 3=Patient will improve strength/tolerance for activity to enable patient to perform ADL's. OT Education/Plan Problem List/Assessment Assessment: Decreased Activ Tolerance, Decreased UE Strength, Dependent Transfers, Impaired Bed Mobility, Impaired Coordination, Impaired Funct Balance, Impaired Self-Care Skills Discharge Recommendations Plan/Recommendations: Continue POC Treatment Plan/Plan of Care Patient would benefit from OT for education, treatment and training to promote independence in ADL's, mobility, safety and/or upper extremity function for ADL's. Plan of Care: ADL Retraining, Caregiver Training, Functional Mobility, Group Exercise/Act as Ind, UE Funct Exercise/Act Treatment Duration: Mar 11, 2019 Frequency: At least 5 of 7 days/Wk (IRF) Estimated Hrs Per Day: 1.5 hours per day Agreement: Yes Rehab Potential: Guarded Time/GCodes Start Time: 07:30 Stop Time: 08:45 Total Time Billed (hr/min): 75 Billed Treatment Time 1 visit-ADL 2 (30 min) FA 3 (45 min) co-treat PT [id number] individual 0730- 08 TERRA SHAW Feb 22, 2019 08:43 POS
[2019-02-22] MEDS: POLYETHYLENE GLYCOL 17 GM (MIRALAX) PACK PO SCH (09:04)
[2019-02-22] MEDS ORDERED: APIX5TAB PO ×2 (09:20)
[2019-02-22] MEDS ORDERED: ACHD5005 PO ×2 (09:20)
[2019-02-22] MEDS ORDERED: PRD20T PO ×2 (09:20)
[2019-02-22] MEDS ORDERED: NYST15OI13 TOP ×2 (09:20)
[2019-02-22] MEDS ORDERED: FLUT12AE4 IH ×2 (09:20)
[2019-02-22] MEDS ORDERED: NEOM28.33 TOP ×2 (09:20)
[2019-02-22] MEDS ORDERED: ZINC28PA TOP ×2 (09:20)
[2019-02-22] MEDS ORDERED: ALPR0.254 PO ×2 (09:20)
[2019-02-22] MEDS ORDERED: BUSP10TA95 PO ×2 (09:20)
[2019-02-22] MEDS ORDERED: TRM50T PO ×2 (09:20)
[2019-02-22] MEDS ORDERED: POLY17PO31 PO ×2 (09:20)
--- NOTE | 2019-02-22 09:22 | Discharge Inst-Skilled Nursing ---
Discharge Inst-Skilled NF Reconcile Patient Problems Problems Reviewed?: Yes Patient Instructions Patient Problems: Severe COPD Obesity hypoventilation syndrome Non-compliance with diet and CPAP O2 dependent Anasarca Goal: Return to independence Consult/Follow Up/Orders Follow Up Appt.: [facility] [address] Contreras in [address] Gutiérrez in 2 weeks Skilled NF Admit to: Certification (SNF) I certify that SNF services are required to be given on an inpatient basis because of the above named patient's need for custodial care on a continuing basis for the conditions(s) for which he/she was receiving inpatient hospital services prior to his/her transfer to the SNF. Custodial Facility Order: Nursing Services, Wire Weaver Helper-Evaluate & Treat, Physical Therapy-Evaluate & Treat, Wound Care-Eval/Treat Oxygen Delivery Method: Nasal Cannula Discharge Diet: Low Sodium Diet, ADA Diet Daily Activity as Tolerated: Yes Resuscitation Status: Full Code New & Resume Previous Orders New Medications: Alprazolam (Alprazolam) 0.25 Mg Tablet 0.25 MG PO Q8H PRN for ANXIETY, #14 TAB Apixaban (Eliquis) 5 Mg Tablet 5 MG PO BID for 365 Days, TAB Fluticasone/Salmeterol (Advair Hfa 115-21 Mcg Inhaler) 12 Gm Hfa.aer.ad 2 PUFF IH BID@08,20 for 30 Days, GM Hydrocodone Bit/Acetaminophen (Hydrocodone/Acetaminophen 5/325mg Tablet) 1 Tab Tab 1 TAB PO Q4H PRN for PAIN-SEVERE (8-10), #10 TAB Neomycin Chacko/Bacitrac Zn/Poly (Neosporin Ointment) 28.3 Gm Oint...g. 0 GM TOP DAILY for 7 Days, TUBE Nystatin (Nystatin) 15 Gm Oint...g. 0 GM TOP BID PRN for RASH for 7 Days, TUBE Polyethylene Glycol 3350 (Polyethylene Glycol 3350) 17 Gm Powd.pack 17 GM PO BID for 30 Days, EACH Tramadol HCl (Tramadol HCl) 50 Mg Tablet 50 MG PO TID PRN for PAIN-MODERATE (5-7), #10 TAB Zinc Oxide (Boudreauxs) 28 Gm Oint 0 GM TOP TID PRN for DIAPER CHANGE for 7 Days, TUBE Continued Medications: Acetaminophen (Acetaminophen 8 Hour) 650 Mg Tablet.er 650 MG PO Q6H PRN for PAIN-MILD (1-4) OR TEMPATURE, TAB Amiodarone HCl (Amiodarone HCl) 200 Mg Tablet 200 MG PO BID, TAB HOLD FOR HR LESS THAN 55 Arformoterol Tartrate (Brovana) 15 Mcg/2 Ml Vial.neb 15 MCG IH BID, INHALER Ascorbic Acid (Vitamin C) 1,000 Mg Tablet 2000 MG PO DAILY, TAB Azithromycin (Azithromycin) 500 Mg Tablet 500 MG PO MON,WED,FRI, TAB Buspirone HCl (Buspirone HCl) 10 Mg Tablet 10 MG PO BID, #20 TAB (This prescription has been renewed) Folic Acid (Folic Acid) 1 Mg Tablet 2 MG PO DAILY, TAB Guaifenesin (Guaifenesin) 100 Mg/5 Ml Liquid 6 ML PO BID, EA Hydralazine HCl (Hydralazine HCl) 25 Mg Tablet 25 MG PO BID, TAB HOLD FOR SYSTOLIC BP LESS THAN 100 Insulin Lispro (Humalog) 100 Unit/1 Ml Vial 100 UNIT SQ QIDACHS, VIAL USE PER SLIDING SCALE: BG 70-140=0 UNITS 141-180=8 UNITS 181-220=10UNITS 221-260=12 UNITS 261-300=14 UNITS 601-340=16 UNITS 341-380=18 UNITS 381-400=20 UNITS IF BG IS OVER 400 NOTIFY PROVIER Ipratropium/Albuterol Sulfate (Iprat-Albut 0.5-3(2.5) mg/3 ml) 3 Ml Ampul.neb 3 ML NEB Q6H PRN for SHORTNESS OF BREATH, EACH Lactobacillus Acidophilus (Acidophilus Lactobacilli) 1 Each Capsule 1 EACH PO BID, CAP Metoprolol Tartrate (Lopressor) 100 Mg Tablet 100 MG PO BID, TAB Multivitamin (Multiple Vitamins) 1 Each Tablet 1 EACH PO DAILY, TAB Ondansetron (Ondansetron Odt) 4 Mg Tab.rapdis 4 MG PO Q6H PRN for NAUSEA/VOMITING-1ST LINE, TAB Pantoprazole Sodium (Protonix) 40 Mg Tablet.dr 40 MG PO DAILY, TAB Prednisone (Prednisone) 20 Mg Tab 20 MG PO DAILY for 5 Days, TAB (This prescription has been renewed) Sildenafil Citrate (Sildenafil) 20 Mg Tablet 20 MG PO TID, TAB HOLD FOR SBP LESS THAN 110 Theophylline Anhydrous (Theophylline Anhydrous) 100 Mg Tab.er.12h 100 MG PO DAILY, TAB Discontinued Medications: Budesonide (Pulmicort) 1 Mg/2 Ml Ampul.neb 1 MG IH BID, INHALER Enoxaparin Sodium (Enoxaparin Sodium) 40 Mg/0.4 Ml Syringe 40 MG SQ 1700, SYRINGE Glucagon,Human Recombinant (Glucagon Emergency Kit) 1 Mg/Kit Soln 1 MG IJ UD PRN for HYPOGLYCEMIA, EA Methylprednisolone Sod Succ/Pf (Solu-Medrol 40 mg Vial) 40 Mg/1 Ml Vial 20 MG IJ Q12H, VIAL Roflumilast (Daliresp) 500 Mcg Tablet 500 MCG PO DAILY, TAB Sodium Chloride For Inhalation (Nebusal) 4 Ml Vial.neb 4 ML IH QID, INHALER Sandra Bui Feb 22, 2019 09:21 SANDRA BUI DO Feb 22, 2019 09:22 POS
--- NOTE | 2019-02-22 09:43 | Discharge Summary ---
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 Chronic anxiety PAF Anasarca CHF COPD OHS DM Poor venous access s/p PICC Emotionally labile Plan: Monitor closely Monitor AF Appreciate Josseline Contreras and Miguel matias Full code per patient request PICC line pulled out TYSON with cardioversion successful last week Pastoral care at patient request prn Counseled patient does need to use BiPAP I don't think he is close to daypass yet (1) Myopathy Status: Acute (2) Atrial fibrillation (3) Anasarca (4) Fair prognosis (5) Debility (6) Bryson catheter in place (7) Acute on chronic respiratory failure with hypoxia Status: Acute (8) LUIGI treated with BiPAP Status: Chronic (9) CKD (chronic kidney disease) Status: Chronic (10) COPD (chronic obstructive pulmonary disease) (11) Diabetes mellitus with hyperglycemia Status: Chronic (12) Obesity hypoventilation syndrome Status: Chronic (13) Pulmonary HTN Status: Chronic (14) Pulmonary edema Status: Acute (15) CAD (coronary artery disease) Status: Chronic (16) DVT prophylaxis Status: Acute (17) Lymphedema (18) Hypoxia Status: Acute (19) Respiratory insufficiency (20) Hypercapnia Status: Acute (21) Obesity Status: Acute (22) HTN (hypertension) Status: Acute Discharge Summary Discharge Physical Examination Allergies: Coded Allergies: NKANo Known Allergies (Verified Allergy, Unknown, 05/15/05) Vitals & I&Os Vital Signs Date Time Temp Pulse Resp B/P (MAP) Pulse Ox O2 Delivery O2 Flow Rate FiO2 02/22/19 12:27 57 02/22/19 11:17 91 Nasal Cannula 2.00 02/22/19 05:54 36.3 20 138/75 (96) General Appearance: Alert, Oriented X3, Cooperative Respiratory: Clear to Auscultation Cardiovascular: Regular Rate Extremities: Other (edema) Hospital Course Was the Problem List Reviewed?: Yes Hospital course: Pt had an uneventful but complex hospital course for twelve days when he was admitted from [place], and transferred over there from [facility] due to anasarca and respiratory failure. Pt did require BiPAP and a Bumex drip to facilitate diuresis. Dr. Ramirez was consulted for long-term bryson catheter maintenance and he did have hematuria which resulted in a cystoscopy today, in which everything looked good. Wide evelina wraps were placed on lower extremities to help the edema. Cardiology was consulted, they cardioverted him due to chronic A-FIB and SOB and that was successful, and all medications were resumed per their recommendations. Sugars remained high due to noncompliance with diet and he was noncompliant with CPAP and BiPAP so poor prognosis remains due to the fact that he can't maintain strict treatment for obesity hypoventilation syndrome with diabetes, and chronic renal insufficiency. Overall Pt stabilized, he was ready for long term, likely that will be long-term and will be admitted to [facility] service. Labs (last 24 hrs) Laboratory Tests 02/11/19 12:06: Glucometer 234H 02/11/19 15:17: Glucometer 251H 02/11/19 20:38: Glucometer 127H 02/12/19 05:17: Glucometer 263H 02/12/19 05:34: White Blood Count 4.9, Red Blood Count 3.05L, Hemoglobin 8.8L, Hematocrit 29L, Mean Corpuscular Volume 96, Mean Corpuscular Hemoglobin 29, Mean Corpuscular Hemoglobin Concent 30L, Red Cell Distribution Width 19.1H, Platelet Count 189, Mean Platelet Volume 9.8, Neutrophils (%) (Auto) 84H, Lymphocytes (%) (Auto) 12, Monocytes (%) (Auto) 3, Eosinophils (%) (Auto) 1, Basophils (%) (Auto) 0, Neutrophils # (Auto) 4.2, Lymphocytes # (Auto) 0.6L, Monocytes # (Auto) 0.2, Eosinophils # (Auto) 0.0, Basophils # (Auto) 0.0, Sodium Level 144, Potassium L evel 3.9, Chloride Level 95L, Carbon Dioxide Level 33H, Anion Gap 16H, Blood Urea Nitrogen 39H, Creatinine 1.72H, Estimat Glomerular Filtration Rate 40, BUN/Creatinine Ratio 23, Glucose Level 248H, Calcium Level 9.1, Corrected Calcium 9.5, Magnesium Level 1.7, Total Bilirubin 0.8, Aspartate Amino Transf (AST/SGOT) 18, Alanine Aminotransferase (ALT/SGPT) 35, Alkaline Phosphatase 66, Total Protein 6.3L, Albumin 3.5 02/12/19 08:23: Glucometer 224H 02/12/19 10:07: Blood Gas Puncture Site LEFT RADIAL, Blood Gas Patient Temperature 36.9, Arterial Blood pH 7.45H, Arterial Blood Partial Pressure CO2 59H, Arterial Blood Partial Pressure O2 81, Arterial Blood HCO3 41*H, Arterial Blood Total CO2 42.6H , Arterial Blood Oxygen Saturation 97, Arterial Blood Base Excess 15.7H, Gurwinder Test POSITIVE, Blood Gas Ventilator Setting NO, Blood Gas Inspired Oxygen 2 L 02/12/19 11:04: Glucometer 220H 02/12/19 14:45: Glucometer 283H 02/12/19 20:29: Glucometer 348H 02/13/19 05:30: Glucometer 250H 02/13/19 05:51: White Blood Count 4.1L, Red Blood Count 2.91L, Hemoglobin 8.4L, Hematocrit 28L, Mean Corpuscular Volume 95, Mean Corpuscular Hemoglobin 29, Mean Corpuscular Hemoglobin Concent 30L, Red Cell Distribution Width 18.8H, Platelet Count 195, Mean Platelet Volume 10.6H, Sodium Level 144, Potassium Level 3.9, Chloride Level 94L, Carbon Dioxide Level 36H, Anion Gap 14, Blood Urea Nitrogen 41H, Creatinine 1.63H, Estimat Glomerular Filtration Rate 43, BUN/Creatinine Ratio 25, Glucose Level 259H, Calcium Level 8.5, Phosphorus Level 3.6, Magnesium Level 1.8 02/13/19 11:10: Glucometer 268H 02/13/19 15:25: Glucometer 270H 02/13/19 20:09: Glucometer 380H 02/14/19 04:30: Glucometer 275H 02/14/19 05:50: White Blood Count 4.0L, Red Blood Count 2.85L, Hemoglobin 8.2L, Hematocrit 27L, Mean Corpuscular Volume 96, Mean Corpuscular Hemoglobin 29, Mean Corpuscular Hemoglobin Concent 30L, Red Cell Distribution Width 19.2H, Platelet Count 211, Mean Platelet Volume 10.3, Sodium Level 143, Potassium Level 3.7, Chloride Level 96L, Carbon Dioxide Level 38H, Anion Gap 9, Blood Urea Nitrogen 39H, Creatinine 1.75H, Estimat Glomerular Filtration Rate 40, BUN/Creatinine Ratio 22, Glucose Level 255H, Calcium Level 8.7, Phosphorus Level 3.5, Magnesium Level 1.9 02/14/19 10:55: Glucometer 434*H 02/14/19 17:28: Glucometer 296H 02/14/19 20:29: Glucometer 321H 02/15/19 05:10: White Blood Count 4.7, Red Blood Count 2.87L, Hemoglobin 8.5L, Hematocrit 28L, Mean Corpuscular Volume 96, Mean Corpuscular Hemoglobin 30, Mean Corpuscular Hemoglobin Concent 31L, Red Cell Distribution Width 19.2H, Platelet Count 208, Mean Platelet Volume 9.8, Sodium Level 144, Potassium Level 3.6, Chloride Level 94L, Carbon Dioxide Level 38H, Anion Gap 12, Blood Urea Nitrogen 38H, Creatinine 1.43H, Estimat Glomerular Filtration Rate 50, BUN/Creatinine Ratio 27, Glucose Level 117H, Calcium Level 8.7, Phosphorus Level 2.4, Magnesium Level 1.8 02/15/19 05:12: Glucometer 129H 02/15/19 10:40: Glucometer 268H 02/15/19 15:30: Glucometer 284H 02/15/19 20:39: Glucometer 258H 02/16/19 05:00: White Blood Count 2.8L, Red Blood Count 2.75L, Hemoglobin 8.1L, Hematocrit 27L, Mean Corpuscular Volume 96, Mean Corpuscular Hemoglobin 30, Mean Corpuscular Hemoglobin Concent 31L, Red Cell Distribution Width 19.0H, Platelet Count 193, Mean Platelet Volume 9.2, Sodium Level 143, Potassium Level 3.7, Chloride Level 96L, Carbon Dioxide Level 38H, Anion Gap 9, Blood Urea Nitrogen 38H, Creatinine 1.38H, Estimat Glomerular Filtration Rate 52, BUN/Creatinine Ratio 28, Glucose Level 175H, Calcium Level 8.5, Phosphorus Level 3.1, Magnesium Level 2.0 02/16/19 05:19: Glucometer 224H 02/16/19 14:13: Glucometer 196H 02/16/19 15:23: Glucometer 225H 02/16/19 20:25: Glucometer 195H 02/17/19 05:17: Glucometer 131H 02/17/19 06:15: White Blood Count 4.9, Red Blood Count 2.77L, Hemoglobin 8.1L, Hematocrit 27L, Mean Corpuscular Volume 98, Mean Corpuscular Hemoglobin 29, Mean Corpuscular Hemoglobin Concent 30L, Red Cell Distribution Width 19.2H, Platelet Count 209, Mean Platelet Volume 9.8, Sodium Level 143, Potassium Level 4.0, Chloride Level 94L, Carbon Dioxide Level 37H, Anion Gap 12, Blood Urea Nitrogen 36H, Creatinine 1.40H, Estimat Glomerular Filtration Rate 51, BUN/Creatinine Ratio 26, Glucose Level 122H, Calcium Level 8.4L, Phosphorus Level 3.5, Magnesium Level 1.9 02/17/19 10:47: Glucometer 231H 02/17/19 15:31: Glucometer 296H 02/17/19 20:33: Glucometer 266H 02/18/19 05:00: Glucometer 122H, White Blood Count 5.1, Red Blood Count 2.83L, Hemoglobin 8.3L, Hematocrit 27L, Mean Corpuscular Volume 97, Mean Corpuscular Hemoglobin 29, Mean Corpuscular Hemoglobin Concent 30L, Red Cell Distribution Width 19.1H, Platelet Count 222, Mean Platelet Volume 8.9, Sodium Level 142, Potassium Level 3.9, Chloride Level 96L, Carbon Dioxide Level 38H, Anion Gap 8, Blood Urea Nitrogen 38H, Creatinine 1.38H, Estimat Glomerular Filtration Rate 52, BUN/Creatinine Ratio 28, Glucose Level 110H, Calcium Level 8.8, Phosphorus Level 3.0, Magnesium Level 2.0 02/18/19 10:57: Glucometer 384H 02/18/19 15:26: Glucometer 429*H 02/18/19 18:11: Glucometer 319H 02/18/19 20:10: Glucometer 276H 02/19/19 05:15: White Blood Count 3.9L, Red Blood Count 2.81L, Hemoglobin 8.0L, Hematocrit 27L, Mean Corpuscular Volume 95, Mean Corpuscular Hemoglobin 28, Mean Corpuscular Hemoglobin Concent 30L, Red Cell Distribution Width 19.6H, Platelet Count 224, Mean Platelet Volume 9.6, Sodium Level 141, Potassium Level 3.9, Chloride Level 96L, Carbon Dioxide Level 36H, Anion Gap 9, Blood Urea Nitrogen 40H, Creatinine 1.39H, Estimat Glomerular Filtration Rate 52, BUN/Creatinine Ratio 29, Glucose Level 128H, Calcium Level 8.6, Phosphorus Level 3.3, Magnesium Level 2.0 02/19/19 10:24: Glucometer 300H 02/19/19 15:39: Glucometer 402*H 02/19/19 20:19: Glucometer 345H 02/20/19 04:58: White Blood Count 4.7, Red Blood Count 2.79L, Hemoglobin 8.2L, Hematocrit 27L, Mean Corpuscular Volume 95, Mean Corpuscular Hemoglobin 29, Mean Corpuscular Hemoglobin Concent 31L, Red Cell Distribution Width 19.6H, Platelet Count 246, Mean Platelet Volume 9.6, Sodium Level 142, Potassium Level 4.3, Chloride Level 96L, Carbon Dioxide Level 34H, Anion Gap 12, Blood Urea Nitrogen 41H, Creatinine 1.49H, Estimat Glomerular Filtration Rate 48, BUN/Creatinine Ratio 28, Glucose Level 178H, Calcium Level 8.6, Phosphorus Level 3.1, Magnesium Level 2.1 02/20/19 10:59: Glucometer 234H 02/20/19 16:06: Glucometer 331H 02/20/19 20:15: Glucometer 287H 02/21/19 05:15: White Blood Count 4.9, Red Blood Count 2.88L, Hemoglobin 8.3L, Hematocrit 27L, Mean Corpuscular Volume 95, Mean Corpuscular Hemoglobin 29, Mean Corpuscular Hemoglobin Concent 30L, Red Cell Distribution Width 19.2H, Platelet Count 245, M alex Platelet Volume 10.2, Sodium Level 140, Potassium Level 4.3, Chloride Level 96L, Carbon Dioxide Level 34H, Anion Gap 10, Blood Urea Nitrogen 38H, Creatinine 1.58H, Estimat Glomerular Filtration Rate 45, BUN/Creatinine Ratio 24, Glucose Level 177H, Calcium Level 8.6, Phosphorus Level 2.8, Magnesium Level 2.0 02/21/19 05:53: Glucometer 228H 02/21/19 10:58: Glucometer 324H 02/21/19 15:24: Glucometer 207H 02/21/19 20:09: Glucometer 261H 02/22/19 05:26: Glucometer 163H 02/22/19 10:52: Glucometer 250H Microbiology 02/15/19 MRSA Screen - Final, Complete MRSA not isolated Pending Labs Microbiology Date/Time Source Procedure Growth Status 02/15/19 08:20 Nasal MRSA Screen - Final MRSA not isolated Complete Laboratory Tests 02/11/19 12:06: Glucometer 234 02/11/19 15:17: Glucometer 251 02/11/19 20:38: Glucometer 127 02/12/19 05:17: Glucometer 263 02/12/19 05:34: White Blood Count 4.9, Red Blood Count 3.05, Hemoglobin 8.8, Hematocrit 29, Mean Corpuscular Volume 96, Mean Corpuscular Hemoglobin 29, Mean Corpuscular Hemoglobin Concent 30, Red Cell Distribution Width 19.1, Platelet Count 189, M alex Platelet Volume 9.8, Neutrophils (%) (Auto) 84, Lymphocytes (%) (Auto) 12, Monocytes (%) (Auto) 3, Eosinophils (%) (Auto) 1, Basophils (%) (Auto) 0, Neutrophils # (Auto) 4.2, Lymphocytes # (Auto) 0.6, Monocytes # (Auto) 0.2, Eosinophils # (Auto) 0.0, Basophils # (Auto) 0.0, Sodium Level 144, Potassium Level 3.9, Chloride Level 95, Carbon Dioxide Level 33, Anion Gap 16, Blood Urea Nitrogen 39, Creatinine 1.72, Estimat Glomerular Filtration Rate 40, BUN/Creatinine Ratio 23, Glucose Level 248, Calcium Level 9.1, Corrected Calcium 9.5, Magnesium Level 1.7, Total Bilirubin 0.8, Aspartate Amino Transf (AST/SGOT) 18, Alanine Aminotransferase (ALT/SGPT) 35, Alkaline Phosphatase 66, Total Protein 6.3, Albumin 3.5 02/12/19 08:23: Glucometer 224 02/12/19 10:07: Blood Gas Puncture Site LEFT RADIAL, Blood Gas Patient Temperature 36.9, Arterial Blood pH 7.45, Arterial Blood Partial Pressure CO2 59, Arterial Blood Partial Pressure O2 81, Arterial Blood HCO3 41, Arterial Blood Total CO2 42.6, Arterial Blood Oxygen Saturation 97, Arterial Blood Base Excess 15.7, Gurwinder Test POSITIVE, Blood Gas Ventilator Setting NO, Blood Gas Inspired Oxygen 2 L 02/12/19 11:04: Glucometer 220 02/12/19 14:45: Glucometer 283 02/12/19 20:29: Glucometer 348 02/13/19 05:30: Glucometer 250 02/13/19 05:51: White Blood Count 4.1, Red Blood Count 2.91, Hemoglobin 8.4, Hematocrit 28, Mean Corpuscular Volume 95, Mean Corpuscular Hemoglobin 29, Mean Corpuscular Hemoglobin Concent 30, Red Cell Distribution Width 18.8, Platelet Count 195, Mean Platelet Volume 10.6, Sodium Level 144, Potassium Level 3.9, Chloride Level 94, Carbon Dioxide Level 36, Anion Gap 14, Blood Urea Nitrogen 41, Creatinine 1.63, Estimat Glomerular Filtration Rate 43, BUN/Creatinine Ratio 25, Glucose Level 259, Calcium Level 8.5, Phosphorus Level 3.6, Magnesium Level 1.8 02/13/19 11:10: Glucometer 268 02/13/19 15:25: Glucometer 270 02/13/19 20:09: Glucometer 380 02/14/19 04:30: Glucometer 275 02/14/19 05:50: White Blood Count 4.0, Red Blood Count 2.85, Hemoglobin 8.2, Hematocrit 27, Mean Corpuscular Volume 96, Mean Corpuscular Hemoglobin 29, Mean Corpuscular Hemoglobin Concent 30, Red Cell Distribution Width 19.2, Platelet Count 211, Mean Platelet Volume 10.3, Sodium Level 143, Potassium Level 3.7, Chloride Level 96, Carbon Dioxide Level 38, Anion Gap 9, Blood Urea Nitrogen 39, Creatinine 1.75, Estimat Glomerular Filtration Rate 40, BUN/Creatinine Ratio 22, Glucose Level 255, Calcium Level 8.7, Phosphorus Level 3.5, Magnesium Level 1.9 02/14/19 10:55: Glucometer 434 02/14/19 17:28: Glucometer 296 02/14/19 20:29: Glucometer 321 02/15/19 05:10: White Blood Count 4.7, Red Blood Count 2.87, Hemoglobin 8.5, Hematocrit 28, Mean Corpuscular Volume 96, Mean Corpuscular Hemoglobin 30, Mean Corpuscular Hemoglobin Concent 31, Red Cell Distribution Width 19.2, Platelet Count 208, Mean Platelet Volume 9.8, Sodium Level 144, Potassium Level 3.6, Chloride Level 94, Carbon Dioxide Level 38, Anion Gap 12, Blood Urea Nitrogen 38, Creatinine 1.43, Estimat Glomerular Filtration Rate 50, BUN/Creatinine Ratio 27, Glucose Level 117, Calcium Level 8.7, Phosphorus Level 2.4, Magnesium Level 1.8 02/15/19 05:12: Glucometer 129 02/15/19 10:40: Glucometer 268 02/15/19 15:30: Glucometer 284 02/15/19 20:39: Glucometer 258 02/16/19 05:00: White Blood Count 2.8, Red Blood Count 2.75, Hemoglobin 8.1, Hematocrit 27, Mean Corpuscular Volume 96, Mean Corpuscular Hemoglobin 30, Mean Corpuscular Hemoglobin Concent 31, Red Cell Distribution Width 19.0, Platelet Count 193, Mean Platelet Volume 9.2, Sodium Level 143, Potassium Level 3.7, Chloride Level 96, Carbon Dioxide Level 38, Anion Gap 9, Blood Urea Nitrogen 38, Creatinine 1.38, Estimat Glomerular Filtration Rate 52, BUN/Creatinine Ratio 28, Glucose Level 175, Calcium Level 8.5, Phosphorus Level 3.1, Magnesium Level 2.0 02/16/19 05:19: Glucometer 224 02/16/19 14:13: Glucometer 196 02/16/19 15:23: Glucometer 225 02/16/19 20:25: Glucometer 195 02/17/19 05:17: Glucometer 131 02/17/19 06:15: White Blood Count 4.9, Red Blood Count 2.77, Hemoglobin 8.1, Hematocrit 27, Mean Corpuscular Volume 98, Mean Corpuscular Hemoglobin 29, Mean Corpuscular Hemoglobin Concent 30, Red Cell Distribution Width 19.2, Platelet Count 209, Mean Platelet Volume 9.8, Sodium Level 143, Potassium Level 4.0, Chloride Level 94, Carbon Dioxide Level 37, Anion Gap 12, Blood Urea Nitrogen 36, Creatinine 1.40, Estimat Glomerular Filtration Rate 51, BUN/Creatinine Ratio 26, Glucose Level 122, Calcium Level 8.4, Phosphorus Level 3.5, Magnesium Level 1.9 02/17/19 10:47: Glucometer 231 02/17/19 15:31: Glucometer 296 02/17/19 20:33: Glucometer 266 02/18/19 05:00: Glucometer 122, White Blood Count 5.1, Red Blood Count 2.83, Hemoglobin 8.3, Hematocrit 27, Mean Corpuscular Volume 97, Mean Corpuscular Hemoglobin 29, Mean Corpuscular Hemoglobin Concent 30, Red Cell Distribution Width 19.1, Platelet Count 222, Mean Platelet Volume 8.9, Sodium Level 142, Potassium Level 3.9, Chloride Level 96, Carbon Dioxide Level 38, Anion Gap 8, Blood Urea Nitrogen 38, Creatinine 1.38, Estimat Glomerular Filtration Rate 52, BUN/Creatinine Ratio 28, Glucose Level 110, Calcium Level 8.8, Phosphorus Level 3.0, Magnesium Level 2.0 02/18/19 10:57: Glucometer 384 02/18/19 15:26: Glucometer 429 02/18/19 18:11: Glucometer 319 02/18/19 20:10: Glucometer 276 02/19/19 05:15: White Blood Count 3.9, Red Blood Count 2.81, Hemoglobin 8.0, Hematocrit 27, Mean Corpuscular Volume 95, Mean Corpuscular Hemoglobin 28, Mean Corpuscular Hemoglobin Concent 30, Red Cell Distribution Width 19.6, Platelet Count 224, Mean Platelet Volume 9.6, Sodium Level 141, Potassium Level 3.9, Chloride Level 96, Carbon Dioxide Level 36, Anion Gap 9, Blood Urea Nitrogen 40, Creatinine 1.39, Estimat Glomerular Filtration Rate 52, BUN/Creatinine Ratio 29, Glucose Level 128, Calcium Level 8.6, Phosphorus Level 3.3, Magnesium Level 2.0 02/19/19 10:24: Glucometer 300 02/19/19 15:39: Glucometer 402 02/19/19 20:19: Glucometer 345 02/20/19 04:58: White Blood Count 4.7, Red Blood Count 2.79, Hemoglobin 8.2, Hematocrit 27, Mean Corpuscular Volume 95, Mean Corpuscular Hemoglobin 29, Mean Corpuscular Hemoglobin Concent 31, Red Cell Distribution Width 19.6, Platelet Count 246, Mean Platelet Volume 9.6, Sodium Level 142, Potassium Level 4.3, Chloride Level 96, Carbon Dioxide Level 34, Anion Gap 12, Blood Urea Nitrogen 41, Creatinine 1.49, Estimat Glomerular Filtration Rate 48, BUN/Creatinine Ratio 28, Glucose Level 178, Calcium Level 8.6, Phosphorus Level 3.1, Magnesium Level 2.1 02/20/19 10:59: Glucometer 234 02/20/19 16:06: Glucometer 331 02/20/19 20:15: Glucometer 287 02/21/19 05:15: White Blood Count 4.9, Red Blood Count 2.88, Hemoglobin 8.3, Hematocrit 27, Mean Corpuscular Volume 95, Mean Corpuscular Hemoglobin 29, Mean Corpuscular Hemoglobin Concent 30, Red Cell Distribution Width 19.2, Platelet Count 245, Mean Platelet Volume 10.2, Sodium Level 140, Potassium Level 4.3, Chloride Level 96, Carbon Dioxide Level 34, Anion Gap 10, Blood Urea Nitrogen 38, Creatinine 1.58, Estimat Glomerular Filtration Rate 45, BUN/Creatinine Ratio 24, Glucose Level 177, Calcium Level 8.6, Phosphorus Level 2.8, Magnesium Level 2.0 02/21/19 05:53: Glucometer 228 02/21/19 10:58: Glucometer 324 02/21/19 15:24: Glucometer 207 02/21/19 20:09: Glucometer 261 02/22/19 05:26: Glucometer 163 02/22/19 10:52: Glucometer 250 Discharge Home Medications: Active Scripts Active Boudreauxs (Zinc Oxide) 28 Gm Oint 0 Gm TOP TID PRN 7 Days Nystatin 15 Gm Oint...g. 0 Gm TOP BID PRN 7 Days Neosporin Ointment (Neomycin Chacko/Bacitrac Zn/Poly) 28.3 Gm Oint...g. 0 Gm TOP DAILY 7 Days Polyethylene Glycol 3350 17 Gm Powd.pack 17 Gm PO BID 30 Days Advair Hfa 115-21 Mcg Inhaler (Fluticasone/Salmeterol) 12 Gm Hfa.aer.ad 2 Puff IH BID@08,20 30 Days Alprazolam 0.25 Mg Tablet 0.25 Mg PO Q8H PRN Tramadol HCl 50 Mg Tablet 50 Mg PO TID PRN Hydrocodone/Acetaminophen 5/325mg Tablet (Acetaminophen/Hydrocodone Bitart) 1 Tab Tab 1 Tab PO Q4H PRN Eliquis (Apixaban) 5 Mg Tablet 5 Mg PO BID 365 Days Prednisone 20 Mg Tab 20 Mg PO DAILY 5 Days Buspirone HCl 10 Mg Tablet 10 Mg PO BID Reported Brovana (Arformoterol Tartrate) 15 Mcg/2 Ml Vial.neb 15 Mcg IH BID Ondansetron Odt (Ondansetron) 4 Mg Tab.rapdis 4 Mg PO Q6H PRN Acetaminophen 8 Hour (Acetaminophen) 650 Mg Tablet.er 650 Mg PO Q6H PRN Theophylline Anhydrous 100 Mg Tab.er.12h 100 Mg PO DAILY Sildenafil (Sildenafil Citrate) 20 Mg Tablet 20 Mg PO TID HOLD FOR SBP LESS THAN 110 Protonix (Pantoprazole Sodium) 40 Mg Tablet.dr 40 Mg PO DAILY Multiple Vitamins (Multivitamin) 1 Each Tablet 1 Each PO DAILY Lopressor (Metoprolol Tartrate) 100 Mg Tablet 100 Mg PO BID Acidophilus Lactobacilli (Lactobacillus Acidophilus) 1 Each Capsule 1 Each PO BID Humalog (Insulin Lispro) 100 Unit/1 Ml Vial 100 Unit SQ QIDACHS USE PER SLIDING SCALE: BG 70-140=0 UNITS 141-180=8 UNITS 181-220=10UNITS 221-260=12 UNITS 261-300=14 UNITS 601-340=16 UNITS 341-380=18 UNITS 381-400=20 UNITS IF BG IS OVER 400 NOTIFY PROVIER Hydralazine HCl 25 Mg Tablet 25 Mg PO BID HOLD FOR SYSTOLIC BP LESS THAN 100 Guaifenesin 100 Mg/5 Ml Liquid 6 Ml PO BID Folic Acid 1 Mg Tablet 2 Mg PO DAILY Vitamin C (Ascorbic Acid) 1,000 Mg Tablet 2,000 Mg PO DAILY Azithromycin 500 Mg Tablet 500 Mg PO MON,WED,FRI Iprat-Albut 0.5-3(2.5) mg/3 ml (Ipratropium/Albuterol Sulfate) 3 Ml Ampul.neb 3 Ml NEB Q6H PRN Amiodarone HCl 200 Mg Tablet 200 Mg PO BID HOLD FOR HR LESS THAN 55 Instructions to patient/family Please see electronic discharge instructions given to patient. Diagnosis/Problems Diagnosis/Problems (1) Myopathy Status: Acute (2) Atrial fibrillation (3) Anasarca (4) Fair prognosis (5) Debility (6) Bryson catheter in place (7) Acute on chronic respiratory failure with hypoxia Status: Acute (8) LUIGI treated with BiPAP Status: Chronic (9) CKD (chronic kidney disease) Status: Chronic (10) COPD (chronic obstructive pulmonary disease) (11) Diabetes mellitus with hyperglycemia Status: Chronic (12) Obesity hypoventilation syndrome Status: Chronic (13) Pulmonary HTN Status: Chronic (14) Pulmonary edema Status: Acute (15) CAD (coronary artery disease) Status: Chronic (16) DVT prophylaxis Status: Acute (17) Lymphedema (18) Hypoxia Status: Acute (19) Respiratory insufficiency (20) Hypercapnia Status: Acute (21) Obesity Status: Acute (22) HTN (hypertension) Status: Acute Clinical Quality Measures DVT/VTE Risk/Contraindication: Risk Factor Score Per Nursin RFS Level Per Nursing on Admit: 4+=Very High YARIEL BUI DO Feb 22, 2019 09:43 POS
--- NOTE | 2019-02-22 09:55 | Discharge Summary ---
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 Chronic anxiety PAF Anasarca CHF COPD OHS DM Poor venous access s/p PICC Emotionally labile Plan: Monitor closely Monitor AF Appreciate Josseline Contreras and Miguel maitas Full code per patient request PICC line pulled out TYSON with cardioversion successful last week Pastoral care at patient request prn Counseled patient does need to use BiPAP I don't think he is close to daypass yet (1) Myopathy Status: Acute (2) Atrial fibrillation (3) Anasarca (4) Fair prognosis (5) Debility (6) Molina catheter in place (7) Acute on chronic respiratory failure with hypoxia Status: Acute (8) LUIGI treated with BiPAP Status: Chronic (9) CKD (chronic kidney disease) Status: Chronic (10) COPD (chronic obstructive pulmonary disease) (11) Diabetes mellitus with hyperglycemia Status: Chronic (12) Obesity hypoventilation syndrome Status: Chronic (13) Pulmonary HTN Status: Chronic (14) Pulmonary edema Status: Acute (15) CAD (coronary artery disease) Status: Chronic (16) DVT prophylaxis Status: Acute (17) Lymphedema (18) Hypoxia Status: Acute (19) Respiratory insufficiency (20) Hypercapnia Status: Acute (21) Obesity Status: Acute (22) HTN (hypertension) Status: Acute Discharge Summary Discharge Physical Examination Allergies: Coded Allergies: NKANo Known Allergies (Verified Allergy, Unknown, 05/15/05) Vitals & I&Os Vital Signs Date Time Temp Pulse Resp B/P (MAP) Pulse Ox O2 Delivery O2 Flow Rate FiO2 02/22/19 12:27 57 02/22/19 11:17 91 Nasal Cannula 2.00 02/22/19 05:54 36.3 20 138/75 (96) Hospital Course Labs (last 24 hrs) Laboratory Tests 02/11/19 12:06: Glucometer 234H 02/11/19 15:17: Glucometer 251H 02/11/19 20:38: Glucometer 127H 02/12/19 05:17: Glucometer 263H 02/12/19 05:34: White Blood Count 4.9, Red Blood Count 3.05L, Hemoglobin 8.8L, Hematocrit 29L, Mean Corpuscular Volume 96, Mean Corpuscular Hemoglobin 29, Mean Corpuscular Hemoglobin Concent 30L, Red Cell Distribution Width 19.1H, Platelet Count 189, Mean Platelet Volume 9.8, Neutrophils (%) (Auto) 84H, Lymphocytes (%) (Auto) 12, Monocytes (%) (Auto) 3, Eosinophils (%) (Auto) 1, Basophils (%) (Auto) 0, Neutrophils # (Auto) 4.2, Lymphocytes # (Auto) 0.6L, Monocytes # (Auto) 0.2, Eosinophils # (Auto) 0.0, Basophils # (Auto) 0.0, Sodium Level 144, Potassium Level 3.9, Chloride Level 95L, Carbon Dioxide Level 33H, Anion Gap 16H, Blood Urea Nitrogen 39H, Creatinine 1.72H, Estimat Glomerular Filtration Rate 40, BUN/Creatinine Ratio 23, Glucose Level 248H, Calcium Level 9.1, Corrected Calcium 9.5, Magnesium Level 1.7, Total Bilirubin 0.8, Aspartate Amino Transf (AST/SGOT) 18, Alanine Aminotransferase (ALT/SGPT) 35, Alkaline Phosphatase 66, Total Protein 6.3L, Albumin 3.5 02/12/19 08:23: Glucometer 224H 02/12/19 10:07: Blood Gas Puncture Site LEFT RADIAL, Blood Gas Patient Temperature 36.9, Arterial Blood pH 7.45H, Arterial Blood Partial Pressure CO2 59H, Arterial Blood Partial Pressure O2 81, Arterial Blood HCO3 41*H, Arterial Blood Total CO2 42.6H , Arterial Blood Oxygen Saturation 97, Arterial Blood Base Excess 15.7H, Gurwinder Test POSITIVE, Blood Gas Ventilator Setting NO, Blood Gas Inspired Oxygen 2 L 02/12/19 11:04: Glucometer 220H 02/12/19 14:45: Glucometer 283H 02/12/19 20:29: Glucometer 348H 02/13/19 05:30: Glucometer 250H 02/13/19 05:51: White Blood Count 4.1L, Red Blood Count 2.91L, Hemoglobin 8.4L, Hematocrit 28L, Mean Corpuscular Volume 95, Mean Corpuscular Hemoglobin 29, Mean Corpuscular Hemoglobin Concent 30L, Red Cell Distribution Width 18.8H, Platelet Count 195, Mean Platelet Volume 10.6H, Sodium Level 144, Potassium Level 3.9, Chloride Level 94L, Carbon Dioxide Level 36H, Anion Gap 14, Blood Urea Nitrogen 41H, Creatinine 1.63H, Estimat Glomerular Filtration Rate 43, BUN/Creatinine Ratio 25, Glucose Level 259H, Calcium Level 8.5, Phosphorus Level 3.6, Magnesium Level 1.8 02/13/19 11:10: Glucometer 268H 02/13/19 15:25: Glucometer 270H 02/13/19 20:09: Glucometer 380H 02/14/19 04:30: Glucometer 275H 02/14/19 05:50: White Blood Count 4.0L, Red Blood Count 2.85L, Hemoglobin 8.2L, Hematocrit 27L, Mean Corpuscular Volume 96, Mean Corpuscular Hemoglobin 29, Mean Corpuscular Hemoglobin Concent 30L, Red Cell Distribution Width 19.2H, Platelet Count 211, Mean Platelet Volume 10.3, Sodium Level 143, Potassium Level 3.7, Chloride Level 96L, Carbon Dioxide Level 38H, Anion Gap 9, Blood Urea Nitrogen 39H, Creatinine 1.75H, Estimat Glomerular Filtration Rate 40, BUN/Creatinine Ratio 22, Glucose Level 255H, Calcium Level 8.7, Phosphorus Level 3.5, Magnesium Level 1.9 02/14/19 10:55: Glucometer 434*H 02/14/19 17:28: Glucometer 296H 02/14/19 20:29: Glucometer 321H 02/15/19 05:10: White Blood Count 4.7, Red Blood Count 2.87L, Hemoglobin 8.5L, Hematocrit 28L, Mean Corpuscular Volume 96, Mean Corpuscular Hemoglobin 30, Mean Corpuscular Hemoglobin Concent 31L, Red Cell Distribution Width 19.2H, Platelet Count 208, Mean Platelet Volume 9.8, Sodium Level 144, Potassium Level 3.6, Chloride Level 94L, Carbon Dioxide Level 38H, Anion Gap 12, Blood Urea Nitrogen 38H, Creatinine 1.43H, Estimat Glomerular Filtration Rate 50, BUN/Creatinine Ratio 27, Glucose Level 117H, Calcium Level 8.7, Phosphorus Level 2.4, Magnesium Level 1.8 02/15/19 05:12: Glucometer 129H 02/15/19 10:40: Glucometer 268H 02/15/19 15:30: Glucometer 284H 02/15/19 20:39: Glucometer 258H 02/16/19 05:00: White Blood Count 2.8L, Red Blood Count 2.75L, Hemoglobin 8.1L, Hematocrit 27L, Mean Corpuscular Volume 96, Mean Corpuscular Hemoglobin 30, Mean Corpuscular Hemoglobin Concent 31L, Red Cell Distribution Width 19.0H, Platelet Count 193, Mean Platelet Volume 9.2, Sodium Level 143, Potassium Level 3.7, Chloride Level 96L, Carbon Dioxide Level 38H, Anion Gap 9, Blood Urea Nitrogen 38H, Creatinine 1.38H, Estimat Glomerular Filtration Rate 52, BUN/Creatinine Ratio 28, Glucose Level 175H, Calcium Level 8.5, Phosphorus Level 3.1, Magnesium Level 2.0 02/16/19 05:19: Glucometer 224H 02/16/19 14:13: Glucometer 196H 02/16/19 15:23: Glucometer 225H 02/16/19 20:25: Glucometer 195H 02/17/19 05:17: Glucometer 131H 02/17/19 06:15: White Blood Count 4.9, Red Blood Count 2.77L, Hemoglobin 8.1L, Hematocrit 27L, Mean Corpuscular Volume 98, Mean Corpuscular Hemoglobin 29, Mean Corpuscular Hemoglobin Concent 30L, Red Cell Distribution Width 19.2H, Platelet Count 209, Mean Platelet Volume 9.8, Sodium Level 143, Potassium Level 4.0, Chloride Level 94L, Carbon Dioxide Level 37H, Anion Gap 12, Blood Urea Nitrogen 36H, Creatinine 1.40H, Estimat Glomerular Filtration Rate 51, BUN/Creatinine Ratio 26, Glucose Level 122H, Calcium Level 8.4L, Phosphorus Level 3.5, Magnesium Level 1.9 02/17/19 10:47: Glucometer 231H 02/17/19 15:31: Glucometer 296H 02/17/19 20:33: Glucometer 266H 02/18/19 05:00: Glucometer 122H, White Blood Count 5.1, Red Blood Count 2.83L, Hemoglobin 8.3L, Hematocrit 27L, Mean Corpuscular Volume 97, Mean Corpuscular Hemoglobin 29, Mean Corpuscular Hemoglobin Concent 30L, Red Cell Distribution Width 19.1H, Platelet Count 222, Mean Platelet Volume 8.9, Sodium Level 142, Potassium Level 3.9, Chloride Level 96L, Carbon Dioxide Level 38H, Anion Gap 8, Blood Urea Nitrogen 38H, Creatinine 1.38H, Estimat Glomerular Filtration Rate 52, BUN/Creatinine Ratio 28, Glucose Level 110H, Calcium Level 8.8, Phosphorus Level 3.0, Magnesium Level 2.0 02/18/19 10:57: Glucometer 384H 02/18/19 15:26: Glucometer 429*H 02/18/19 18:11: Glucometer 319H 02/18/19 20:10: Glucometer 276H 02/19/19 05:15: White Blood Count 3.9L, Red Blood Count 2.81L, Hemoglobin 8.0L, Hematocrit 27L, Mean Corpuscular Volume 95, Mean Corpuscular Hemoglobin 28, Mean Corpuscular Hemoglobin Concent 30L, Red Cell Distribution Width 19.6H, Platelet Count 224, Mean Platelet Volume 9.6, Sodium Level 141, Potassium Level 3.9, Chloride Level 96L, Carbon Dioxide Level 36H, Anion Gap 9, Blood Urea Nitrogen 40H, Creatinine 1.39H, Estimat Glomerular Filtration Rate 52, BUN/Creatinine Ratio 29, Glucose Level 128H, Calcium Level 8.6, Phosphorus Level 3.3, Magnesium Level 2.0 02/19/19 10:24: Glucometer 300H 02/19/19 15:39: Glucometer 402*H 02/19/19 20:19: Glucometer 345H 02/20/19 04:58: White Blood Count 4.7, Red Blood Count 2.79L, Hemoglobin 8.2L, Hematocrit 27L, Mean Corpuscular Volume 95, Mean Corpuscular Hemoglobin 29, Mean Corpuscular Hemoglobin Concent 31L, Red Cell Distribution Width 19.6H, Platelet Count 246, Mean Platelet Volume 9.6, Sodium Level 142, Potassium Level 4.3, Chloride Level 96L, Carbon Dioxide Level 34H, Anion Gap 12, Blood Urea Nitrogen 41H, Creatinine 1.49H, Estimat Glomerular Filtration Rate 48, BUN/Creatinine Ratio 28, Glucose Level 178H, Calcium Level 8.6, Phosphorus Level 3.1, Magnesium Level 2.1 02/20/19 10:59: Glucometer 234H 02/20/19 16:06: Glucometer 331H 02/20/19 20:15: Glucometer 287H 02/21/19 05:15: White Blood Count 4.9, Red Blood Count 2.88L, Hemoglobin 8.3L, Hematocrit 27L, M alex Corpuscular Volume 95, Mean Corpuscular Hemoglobin 29, Mean Corpuscular Hemoglobin Concent 30L, Red Cell Distribution Width 19.2H, Platelet Count 245, Mean Platelet Volume 10.2, Sodium Level 140, Potassium Level 4.3, Chloride Level 96L, Carbon Dioxide Level 34H, Anion Gap 10, Blood Urea Nitrogen 38H, Creatinine 1.58H, Estimat Glomerular Filtration Rate 45, BUN/Creatinine Ratio 24, Glucose Level 177H, Calcium Level 8.6, Phosphorus Level 2.8, Magnesium Level 2.0 02/21/19 05:53: Glucometer 228H 02/21/19 10:58: Glucometer 324H 02/21/19 15:24: Glucometer 207H 02/21/19 20:09: Glucometer 261H 02/22/19 05:26: Glucometer 163H 02/22/19 10:52: Glucometer 250H Microbiology 02/15/19 MRSA Screen - Final, Complete MRSA not isolated Pending Labs Microbiology Date/Time Source Procedure Growth Status 02/15/19 08:20 Nasal MRSA Screen - Final MRSA not isolated Complete Laboratory Tests 02/11/19 12:06: Glucometer 234 02/11/19 15:17: Glucometer 251 02/11/19 20:38: Glucometer 127 02/12/19 05:17: Glucometer 263 02/12/19 05:34: White Blood Count 4.9, Red Blood Count 3.05, Hemoglobin 8.8, Hematocrit 29, Mean Corpuscular Volume 96, Mean Corpuscular Hemoglobin 29, Mean Corpuscular Hemoglob in Concent 30, Red Cell Distribution Width 19.1, Platelet Count 189, Mean Platelet Volume 9.8, Neutrophils (%) (Auto) 84, Lymphocytes (%) (Auto) 12, Monocytes (%) (Auto) 3, Eosinophils (%) (Auto) 1, Basophils (%) (Auto) 0, Neutrophils # (Auto) 4.2, Lymphocytes # (Auto) 0.6, Monocytes # (Auto) 0.2, Eosinophils # (Auto) 0.0, Basophils # (Auto) 0.0, Sodium Level 144, Potassium Level 3.9, Chloride Level 95, Carbon Dioxide Level 33, Anion Gap 16, Blood Urea Nitrogen 39, Creatinine 1.72, Estimat Glomerular Filtration Rate 40, BUN/Creatinine Ratio 23, Glucose Level 248, Calcium Level 9.1, Corrected Calcium 9.5, Magnesium Level 1.7, Total Bilirubin 0.8, Aspartate Amino Transf (AST/SGOT) 18, Alanine Aminotransferase (ALT/SGPT) 35, Alkaline Phosphatase 66, Total Prote in 6.3, Albumin 3.5 02/12/19 08:23: Glucometer 224 02/12/19 10:07: Blood Gas Puncture Site LEFT RADIAL, Blood Gas Patient Temperature 36.9, Arterial Blood pH 7.45, Arterial Blood Partial Pressure CO2 59, Arterial Blood Partial Pressure O2 81, Arterial Blood HCO3 41, Arterial Blood Total CO2 42.6, Arterial Blood Oxygen Saturation 97, Arterial Blood Base Excess 15.7, Gurwinder Test POSITIVE, Blood Gas Ventilator Setting NO, Blood Gas Inspired Oxygen 2 L 02/12/19 11:04: Glucometer 220 02/12/19 14:45: Glucometer 283 02/12/19 20:29: Glucometer 348 02/13/19 05:30: Glucometer 250 02/13/19 05:51: White Blood Count 4.1, Red Blood Count 2.91, Hemoglobin 8.4, Hematocrit 28, Mean Corpuscular Volume 95, Mean Corpuscular Hemoglobin 29, Mean Corpuscular Hemo globin Concent 30, Red Cell Distribution Width 18.8, Platelet Count 195, Mean Platelet Volume 10.6, Sodium Level 144, Potassium Level 3.9, Chloride Level 94, Carbon Dioxide Level 36, Anion Gap 14, Blood Urea Nitrogen 41, Creatinine 1.63, Estimat Glomerular Filtration Rate 43, BUN/Creatinine Ratio 25, Glucose Level 259, Calcium Level 8.5, Phosphorus Level 3.6, Magnesium Level 1.8 02/13/19 11:10: Glucometer 268 02/13/19 15:25: Glucometer 270 02/13/19 20:09: Glucometer 380 02/14/19 04:30: Glucometer 275 02/14/19 05:50: White Blood Count 4.0, Red Blood Count 2.85, Hemoglobin 8.2, Hematocrit 27, Mean Corpuscular Volume 96, Mean Corpuscular Hemoglobin 29, Mean Corpuscular Hemoglobin Concent 30, Red Cell Distribution Width 19.2, Platelet Count 211, Mean Platelet Volume 10.3, Sodium Level 143, Potassium Level 3.7, Chloride Level 96, Carbon Dioxide Level 38, Anion Gap 9, Blood Urea Nitrogen 39, Creatinine 1.75, Estimat Glomerular Filtration Rate 40, BUN/Creatinine Ratio 22, Glucose Level 255, Calcium Level 8.7, Phosphorus Level 3.5, Magnesium Level 1.9 02/14/19 10:55: Glucometer 434 02/14/19 17:28: Glucometer 296 02/14/19 20:29: Glucometer 321 02/15/19 05:10: White Blood Count 4.7, Red Blood Count 2.87, Hemoglobin 8.5, Hematocrit 28, Mean Corpuscular Volume 96, Mean Corpuscular Hemoglobin 30, Mean Corpuscular Hemoglobin Concent 31, Red Cell Distribution Width 19.2, Platelet Count 208, Mean Platelet Volume 9.8, Sodium Level 144, Potassium Level 3.6, Chloride Level 94, Carbon Dioxide Level 38, Anion Gap 12, Blood Urea Nitrogen 38, Creatinine 1.43, Estimat Glomerular Filtration Rate 50, BUN/Creatinine Ratio 27, Glucose Level 117, Calcium Level 8.7, Phosphorus Level 2.4, Magnesium Level 1.8 02/15/19 05:12: Glucometer 129 02/15/19 10:40: Glucometer 268 02/15/19 15:30: Glucometer 284 02/15/19 20:39: Glucometer 258 02/16/19 05:00: White Blood Count 2.8, Red Blood Count 2.75, Hemoglobin 8.1, Hematocrit 27, Mean Corpuscular Volume 96, Mean Corpuscular Hemoglobin 30, Mean Corpuscular Hemoglobin Concent 31, Red Cell Distribution Width 19.0, Platelet Count 193, Mean Platelet Volume 9.2, Sodium Level 143, Potassium Level 3.7, Chloride Level 96, Carbon Dioxide Level 38, Anion Gap 9, Blood Urea Nitrogen 38, Creatinine 1.38, Estimat Glomerular Filtration Rate 52, BUN/Creatinine Ratio 28, Glucose Level 175, Calcium Level 8.5, Phosphorus Level 3.1, Magnesium Level 2.0 02/16/19 05:19: Glucometer 224 02/16/19 14:13: Glucometer 196 02/16/19 15:23: Glucometer 225 02/16/19 20:25: Glucometer 195 02/17/19 05:17: Glucometer 131 02/17/19 06:15: White Blood Count 4.9, Red Blood Count 2.77, Hemoglobin 8.1, Hematocrit 27, Mean Corpuscular Volume 98, Mean Corpuscular Hemoglobin 29, Mean Corpuscular Hemoglobin Concent 30, Red Cell Distribution Width 19.2, Platelet Count 209, Mean Platelet Volume 9.8, Sodium Level 143, Potassium Level 4.0, Chloride Level 94, Carbon Dioxide Level 37, Anion Gap 12, Blood Urea Nitrogen 36, Creatinine 1.40, Estimat Glomerular Filtration Rate 51, BUN/Creatinine Ratio 26, Glucose Level 122, Calcium Level 8.4, Phosphorus Level 3.5, Magnesium Level 1.9 02/17/19 10:47: Glucometer 231 02/17/19 15:31: Glucometer 296 02/17/19 20:33: Glucometer 266 02/18/19 05:00: Glucometer 122, White Blood Count 5.1, Red Blood Count 2.83, Hemoglobin 8.3, Hematocrit 27, Mean Corpuscular Volume 97, Mean Corpuscular Hemoglobin 29, Mean Corpuscular Hemoglobin Concent 30, Red Cell Distribution Width 19.1, Platelet Count 222, Mean Platelet Volume 8.9, Sodium Level 142, Potassium Level 3.9, Chloride Level 96, Carbon Dioxide Level 38, Anion Gap 8, Blood Urea Nitrogen 38, Creatinine 1.38, Estimat Glomerular Filtration Rate 52, BUN/Creatinine Ratio 28, Glucose Level 110, Calcium Level 8.8, Phosphorus Level 3.0, Magnesium Level 2.0 02/18/19 10:57: Glucometer 384 02/18/19 15:26: Glucometer 429 02/18/19 18:11: Glucometer 319 02/18/19 20:10: Glucometer 276 02/19/19 05:15: White Blood Count 3.9, Red Blood Count 2.81, Hemoglobin 8.0, Hematocrit 27, Mean Corpuscular Volume 95, Mean Corpuscular Hemoglobin 28, Mean Corpuscular Hemoglobin Concent 30, Red Cell Distribution Width 19.6, Platelet Count 224, Mean Platelet Volume 9.6, Sodium Level 141, Potassium Level 3.9, Chloride Level 96, Carbon Dioxide Level 36, Anion Gap 9, Blood Urea Nitrogen 40, Creatinine 1.39, Estimat Glomerular Filtration Rate 52, BUN/Creatinine Ratio 29, Glucose Level 128, Calcium Level 8.6, Phosphorus Level 3.3, Magnesium Level 2.0 02/19/19 10:24: Glucometer 300 02/19/19 15:39: Glucometer 402 02/19/19 20:19: Glucometer 345 02/20/19 04:58: White Blood Count 4.7, Red Blood Count 2.79, Hemoglobin 8.2, Hematocrit 27, Mean Corpuscular Volume 95, Mean Corpuscular Hemoglobin 29, Mean Corpuscular Hemoglobin Concent 31, Red Cell Distribution Width 19.6, Platelet Count 246, Mean Platelet Volume 9.6, Sodium Level 142, Potassium Level 4.3, Chloride Level 96, Carbon Dioxide Level 34, Anion Gap 12, Blood Urea Nitrogen 41, Creatinine 1.49, Estimat Glomerular Filtration Rate 48, BUN/Creatinine Ratio 28, Glucose Level 178, Calcium Level 8.6, Phosphorus Level 3.1, Magnesium Level 2.1 02/20/19 10:59: Glucometer 234 02/20/19 16:06: Glucometer 331 02/20/19 20:15: Glucometer 287 02/21/19 05:15: White Blood Count 4.9, Red Blood Count 2.88, Hemoglobin 8.3, Hematocrit 27, Mean Corpuscular Volume 95, Mean Corpuscular Hemoglobin 29, Mean Corpuscular Hemoglobin Concent 30, Red Cell Distribution Width 19.2, Platelet Count 245, Mean Platelet Volume 10.2, Sodium Level 140, Potassium Level 4.3, Chloride Level 96, Carbon Dioxide Level 34, Anion Gap 10, Blood Urea Nitrogen 38, Creatinine 1.58, Estimat Glomerular Filtration Rate 45, BUN/Creatinine Ratio 24, Glucose Level 177, Calcium Level 8.6, Phosphorus Level 2.8, Magnesium Level 2.0 02/21/19 05:53: Glucometer 228 02/21/19 10:58: Glucometer 324 02/21/19 15:24: Glucometer 207 02/21/19 20:09: Glucometer 261 02/22/19 05:26: Glucometer 163 02/22/19 10:52: Glucometer 250 Discharge Home Medications: Active Scripts Active Boudreauxs (Zinc Oxide) 28 Gm Oint 0 Gm TOP TID PRN 7 Days Nystatin 15 Gm Oint...g. 0 Gm TOP BID PRN 7 Days Neosporin Ointment (Neomycin Chacko/Bacitrac Zn/Poly) 28.3 Gm Oint...g. 0 Gm TOP DAILY 7 Days Polyethylene Glycol 3350 17 Gm Powd.pack 17 Gm PO BID 30 Days Advair Hfa 115-21 Mcg Inhaler (Fluticasone/Salmeterol) 12 Gm Hfa.aer.ad 2 Puff IH BID@08,20 30 Days Alprazolam 0.25 Mg Tablet 0.25 Mg PO Q8H PRN Tramadol HCl 50 Mg Tablet 50 Mg PO TID PRN Hydrocodone/Acetaminophen 5/325mg Tablet (Acetaminophen/Hydrocodone Bitart) 1 Tab Tab 1 Tab PO Q4H PRN Eliquis (Apixaban) 5 Mg Tablet 5 Mg PO BID 365 Days Prednisone 20 Mg Tab 20 Mg PO DAILY 5 Days Buspirone HCl 10 Mg Tablet 10 Mg PO BID Reported Brovana (Arformoterol Tartrate) 15 Mcg/2 Ml Vial.neb 15 Mcg IH BID Ondansetron Odt (Ondansetron) 4 Mg Tab.rapdis 4 Mg PO Q6H PRN Acetaminophen 8 Hour (Acetaminophen) 650 Mg Tablet.er 650 Mg PO Q6H PRN Theophylline Anhydrous 100 Mg Tab.er.12h 100 Mg PO DAILY Sildenafil (Sildenafil Citrate) 20 Mg Tablet 20 Mg PO TID HOLD FOR SBP LESS THAN 110 Protonix (Pantoprazole Sodium) 40 Mg Tablet.dr 40 Mg PO DAILY Multiple Vitamins (Multivitamin) 1 Each Tablet 1 Each PO DAILY Lopressor (Metoprolol Tartrate) 100 Mg Tablet 100 Mg PO BID Acidophilus Lactobacilli (Lactobacillus Acidophilus) 1 Each Capsule 1 Each PO BID Humalog (Insulin Lispro) 100 Unit/1 Ml Vial 100 Unit SQ QIDACHS USE PER SLIDING SCALE: BG 70-140=0 UNITS 141-180=8 UNITS 181-220=10UNITS 221-260=12 UNITS 261-300=14 UNITS 601-340=16 UNITS 341-380=18 UNITS 381-400=20 UNITS IF BG IS OVER 400 NOTIFY PROVIER Hydralazine HCl 25 Mg Tablet 25 Mg PO BID HOLD FOR SYSTOLIC BP LESS THAN 100 Guaifenesin 100 Mg/5 Ml Liquid 6 Ml PO BID Folic Acid 1 Mg Tablet 2 Mg PO DAILY Vitamin C (Ascorbic Acid) 1,000 Mg Tablet 2,000 Mg PO DAILY Azithromycin 500 Mg Tablet 500 Mg PO MON,WED,FRI Iprat-Albut 0.5-3(2.5) mg/3 ml (Ipratropium/Albuterol Sulfate) 3 Ml Ampul.neb 3 Ml NEB Q6H PRN Amiodarone HCl 200 Mg Tablet 200 Mg PO BID HOLD FOR HR LESS THAN 55 Instructions to patient/family Please see electronic discharge instructions given to patient. Diagnosis/Problems Diagnosis/Problems (1) Myopathy Status: Acute (2) Atrial fibrillation (3) Anasarca (4) Fair prognosis (5) Debility (6) Molina catheter in place (7) Acute on chronic respiratory failure with hypoxia Status: Acute (8) LUIGI treated with BiPAP Status: Chronic (9) CKD (chronic kidney disease) Status: Chronic (10) COPD (chronic obstructive pulmonary disease) (11) Diabetes mellitus with hyperglycemia Status: Chronic (12) Obesity hypoventilation syndrome Status: Chronic (13) Pulmonary HTN Status: Chronic (14) Pulmonary edema Status: Acute (15) CAD (coronary artery disease) Status: Chronic (16) DVT prophylaxis Status: Acute (17) Lymphedema (18) Hypoxia Status: Acute (19) Respiratory insufficiency (20) Hypercapnia Status: Acute (21) Obesity Status: Acute (22) HTN (hypertension) Status: Acute Clinical Quality Measures DVT/VTE Risk/Contraindication: Risk Factor Score Per Nursin RFS Level Per Nursing on Admit: 4+=Very High YARIEL BUI DO Feb 22, 2019 09:55 POS
[2019-02-22] MEDS: NEO/POLY/BAC (NEOSPORIN) OINT 15 GM TUBE TOP SCH (11:45)
--- NOTE | 2019-02-22 12:39 | NUR ---
Discharge Patient is discharged today to [facility] under Medicare skilled services. Facility will transport at 1400, they understand to bring O2, bariatric wheelchair, and blankets for warmth. IMM2 presented, signed, charted. CARE Assessment completed with patient, faxed to [email or web address] and CATIE. Continuum of care packet provided to accompany patient. Unit RN aware of all plans. SUMMARY: CATIE KNIGHT was here this a.m. to interview and assess patient, MLNess SW later contacted personal lines underwriter to accept patient for admission. Patient and spouse Anita were both updated and informed of the 1400 transport. CATIE is already working with Anita about probable Medicaid application in case patient requires care beyond the Medicare 20 day full benefit. He is hopeful to return home, but will need to have a level of independence for self care while home alone during Anita's work absence. Patient has debbi shirt and shorts, Anita is at work and can not come with additional warmer clothing. Unit RN to have patient dress, add gown front/back, and ID to bring blankets. Interventions appear complete unless situation changes unexpectedly.
--- NOTE | 2019-02-22 13:32 | Therapy Team Discharge Summary ---
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 Upon evaluation patient performed bed mobility with min assist, supine <-> sit with mod assist, dependent for standing and transfers using a sit to stand machine, can propel a manual wheelchair 100' with min assist. Patient has been performing bed mobility and transfer training, balance and endurance training, functional strengthening, wheelchair mobility training, and education. Patient has made poor progress and has not met any of his mcc goals. Now, patient performs bed mobility with max assist, supine <-> sit max assist, dependent for transfers using a sit to stand machine, can propel a manual wheelchair 100' with SBA. Patient is discharging from this facility today and will be discharged from PT at this time. Occupational Therapy Decreased Activ Tolerance, Decreased UE Strength, Dependent Transfers, Impaired Bed Mobility, Impaired Coordination, Impaired Funct Balance, Impaired Self-Care Skills PT Journeyman Powerhouse Operator Goals Journeyman Powerhouse Operator Goals PT Jail Goals Time Frame: Mar 04, 2019 Roll Left to Right (QC): 6 Sit to Lying (QC): 4 (SBA) Lying-Sitting on Side/Bed(QC): 4 (SBA) Sit to Stand (QC): 3 (Demario) Chair/Hfq-ty-Eydwq Xfer(QC): 3 (Demario) Car Transfer (QC): 3 (Demario) Does the Patient Walk: No and Walking Goal IS indicated Walk 10 feet (QC): 3 (Demario) Walk 10ft-Uneven Surface(QC): 88 Walk 50ft with 2 Turns (QC): 3 (Demario) Walk 150 ft (QC): 88 Does the Pt use WC or Scooter?: Yes Wheel 50 feet with 2 turns (QC: 6 1 Step (curb) (QC): 3 (modA) 4 Steps (QC): 88 12 Steps (QC): 88 Picking up an Object (QC): 88 OT Journeyman Powerhouse Operator Goals Jail Goals Time Frame: Mar 11, 2019 Eating (QC): 6 (met-02/22/19) Oral Hygiene (QC): 6 (met-02/1019) Shower/Bathe Self (QC): 6 (notmet) Upper Body Dressing (QC): 6 (not met) Lower Body Dressing (QC): 6 (not met) On/Off Footwear (QC): 6 (not met) Toileting Hygiene (QC): 6 (not met) Toilet/Commode Transfer (QC): 3 (Demario) Additional Goals: 1-Demonstrate ADL Tasks, 2-Verbalize Understanding, 3- ImproveStrength/Johanna 1=Demonstrate adherence to instructed precautions during ADL tasks. 2=Patient will verbalize/demonstrate understanding of assistive devices/modifications for ADL. 3=Patient will improve strength/tolerance for activity to enable patient to perform ADL's. MARINO VEGA PT Feb 22, 2019 13:32 POS
--- NOTE | 2019-02-22 14:10 | NUR ---
Patient discharged to [facility]. Accompanied by staff in wheelchair with Oxygen. Report called to KORY Liu. Personal items and discharge paperwork sent with staff member.
[2019-02-22] MEDS ORDERED: meTOprolol TARTRATE 50 MG (LOPRESSOR) TAB PO SCH (21:00)
--- NOTE | 2019-02-23 10:25 | Therapy Team Discharge Summary ---
Therapy Discharge Summary Discharge Recommendations Date of Discharge Feb 22, 2019 at 14:10 Occupational Therapy OT focused on increasing BUE strength and increase independence with ADLS. A barrier to pt's progress is that pt required a sit to stand lift for all transfers. Pt currently is able to complete upper body dressing with set up assist and he is independent with eating and oral hygiene. He requires max assist with footwear, max assist during shower (with shower chair that has a cutout for buttocks). He was able to wash ~90% of his body using long handled sponge but required more assistance with drying his legs, abdomen, buttocks, periarea. He currently requires the use of a sit to stand lift for all transfers, including transfer to shower chair. OT recommends pt to d/c with continued OT services in SNF. Decreased Activ Tolerance, Decreased UE Strength, Dependent Transfers, Impaired Bed Mobility, Impaired Coordination, Impaired Funct Balance, Impaired Self-Care Skills PT Occupational Therapist Rehab Manager Goals Prison Goals PT Occupational Therapist Rehab Manager Goals Time Frame: Mar 04, 2019 Roll Left to Right (QC): 6 Sit to Lying (QC): 4 (SBA) Lying-Sitting on Side/Bed(QC): 4 (SBA) Sit to Stand (QC): 3 (Demario) Chair/Sdy-du-Mjnaq Xfer(QC): 3 (Demario) Car Transfer (QC): 3 (Demario) Does the Patient Walk: No and Walking Goal IS indicated Walk 10 feet (QC): 3 (Demario) Walk 10ft-Uneven Surface(QC): 88 Walk 50ft with 2 Turns (QC): 3 (Demario) Walk 150 ft (QC): 88 Does the Pt use WC or Scooter?: Yes Wheel 50 feet with 2 turns (QC: 6 1 Step (curb) (QC): 3 (modA) 4 Steps (QC): 88 12 Steps (QC): 88 Picking up an Object (QC): 88 OT Prison Goals Occupational Therapist Rehab Manager Goals Time Frame: Mar 11, 2019 Eating (QC): 6 (met-02/22/19) Oral Hygiene (QC): 6 (met-02/1019) Shower/Bathe Self (QC): 6 (notmet) Upper Body Dressing (QC): 6 (not met) Lower Body Dressing (QC): 6 (not met) On/Off Footwear (QC): 6 (not met) Toileting Hygiene (QC): 6 (not met) Toilet/Commode Transfer (QC): 3 (not met) Additional Goals: 1-Demonstrate ADL Tasks, 2-Verbalize Understanding, 3- ImproveStrength/Johanna 1=Demonstrate adherence to instructed precautions during ADL tasks. 2=Patient will verbalize/demonstrate understanding of assistive devices/modifications for ADL. 3=Patient will improve strength/tolerance for activity to enable patient to perform ADL's. CHIRAG HAN OT Feb 23, 2019 10:25 POS
== END 2019-02-22 14:10 | DRG 92 ==
PROVIDERS: ADMIT Internal Medicine; ATTEND Internal Medicine
DX: G72.81 Critical illness myopathy (principal); I13.0 Hypertensive heart and chronic kidney disease with heart failure and stage 1 through stage 4 chronic kidney disease, or unspecified chronic kidney disease; J96.12 Chronic respiratory failure with hypercapnia; J96.11 Chronic respiratory failure with hypoxia; I50.32 Chronic diastolic (congestive) heart failure; I48.0 Paroxysmal atrial fibrillation; E66.2 Morbid (severe) obesity with alveolar hypoventilation; Z68.43 Body mass index [BMI] 50.0-59.9, adult; R60.1 Generalized edema; N18.3 Chronic kidney disease, stage 3 (moderate); F41.0 Panic disorder [episodic paroxysmal anxiety]; E11.40 Type 2 diabetes mellitus with diabetic neuropathy, unspecified; J44.9 Chronic obstructive pulmonary disease, unspecified; E11.65 Type 2 diabetes mellitus with hyperglycemia; R45.86 Emotional lability; I27.20 Pulmonary hypertension, unspecified; E78.5 Hyperlipidemia, unspecified; E78.00 Pure hypercholesterolemia, unspecified; R32 Unspecified urinary incontinence; R33.9 Retention of urine, unspecified; L98.411 Non-pressure chronic ulcer of buttock limited to breakdown of skin; I25.10 Atherosclerotic heart disease of native coronary artery without angina pectoris; F32.9 Major depressive disorder, single episode, unspecified; R31.0 Gross hematuria; L60.1 Onycholysis; B35.1 Tinea unguium; Z91.19 Patient's noncompliance with other medical treatment and regimen; Z99.81 Dependence on supplemental oxygen; Z79.4 Long term (current) use of insulin; Z87.891 Personal history of nicotine dependence
CPT/HCPCS: 36415; 36569; 36600; 71045; 71046; 76770; 76937; 80048; 80053; 82805; 82962; 83735; 84100; 85025; 85027; 87081; 93005; 93312; 94640; 94660; 94760

== ENCOUNTER 2019-02-16 09:15 | Observation (INO) | payer MEDICARE ==
[~2019-02-16 09:15] MED LIST changes: +ACET-2429 PO; -ACETAMINOPHEN 500 MG TAB (TYLENOL) PO PRN; +ARFO15VI3 IH; +ASCO10006 PO; +AZIT500T5 PO; -BISACODYL 10 MG SUPP (DULCOLAX) PR PRN; +BUDE1AMP IH; +BUSP10TA95 PO; -CALCIUM CARBONATE 500 MG (TUMS) TAB.CHEW PO PRN; -DILT240C92 PO; +DILT240C97 PO; -DOCUSATE SODIUM 100 MG (COLACE) CAP PO PRN; +ENOX40DI8 SQ; -FLEET ENEMA ADULT 1 EA BTL PR PRN; +FOLI1TAB24 PO; +GLUC1KIT IJ; +GUAI100L13 PO; +HYDR-3923 PO; -HYDROcodone/APAP 5 MG/325 MG (LORTAB) TAB PO PRN; +INSU100V SQ; +LACT1CAP87 PO; -LACTULOSE SYRUP 10GM/15ML (ENULOSE) 30ML UDC PO PRN; -LOPERAMIDE 2 MG (IMODIUM) TABLET PO PRN; +METH40VI2 IJ; +METO-461 PO; +MULT-178 PO; +ONDA4TAB11 PO; -ONDANSETRON 4 MG (ZOFRAN) ORAL DISSOLVE TAB PO PRN; -ONDANSETRON 4 MG/2 ML (SDV) Z0FRAN IV PRN; +PANT40TA2 PO; +ROFL500T PO; +SILD20TA14 PO; +SODI4VIA26 IH; +THEO100T16 PO; -diphenhydrAMINE 25 MG TAB (BENADRYL) PO PRN; -guaiFENesin/CODEINE (ROBITUSSIN AC) 10ML UDC PO PRN
[2019-02-16] MEDS ORDERED: MIDAZOLAM 5 MG/5 ML (VERSED) VIAL ONE (09:43)
[2019-02-16] MEDS ORDERED: proPOfol 200 MG/20 ML (DIPRIVAN) VIAL IV ONE (09:44)
[2019-02-16] MEDS ORDERED: NS IV 500 ML 500 ML ONE (09:44)
[2019-02-16] MEDS ORDERED: LIDOCAINE 2% VISCOUS 15 ML UDC ONE ×2 (10:34→11:02)
--- NOTE | 2019-02-16 11:08 | NUR ---
TIMELINE NOTE: 1108-Dr. Gutiérrez, Anaesthesia, RN and certified pharmacy technician in room. 1109-Medications given by anaesthesia, a total for procedure of Versed 2 mg and propofol 40 mg. 1112-TYSON performed. 1117-Pt shocked at 200 joules, sinus rhythm achieved 1124-5mg IV Lopressor given per verbal order of Dr. Gutiérrez 1127-Pt back into a-flutter, anaesthesia called again to perform another cardioversion 1128-verbal order to give 150 mg IV bolus of Amiodarone. 1140-Dr. Gutiérrez to pt room who states that pt has converted back to sinus rhythm, no additional cardioversion needed. Dr. gutiérrez stated that when pt wakes, he may return to his room on 2nd floor. 1152-pt sleeping at this time, will arouse to name. Will continue to monitor pt.
[2019-02-16] MEDS ORDERED: meTOprolol 5 MG/5 ML (LOPRESSOR) VIAL ONE (11:20)
[2019-02-16] MEDS ORDERED: D5W 100 ML IVPB 100 ML IV ONE (11:29)
[2019-02-16] MEDS ORDERED: AMIODARONE (OMNICELL DRIP KIT) 150 MG/3 ML IV ONE (11:29)
--- NOTE | 2019-02-16 12:00 | NUR ---
Pt drowsy but responds to verbal stimuli, VSS. Will continue to monitor.
--- NOTE | 2019-02-16 13:00 | NUR ---
Pt awake, able to drink thin liquids and responds spontaneously to stimuli. VSS, will transfer pt back down to rehab at this time. Q15 vital signs printed and placed in pt chart.
--- NOTE | 2019-02-16 13:20 | Anesthesia-General Post-Op ---
MAC Patient Condition Mental Status/LOC: Same as Preop Cardiovascular: Satisfactory Nausea/Vomiting: Absent Respiratory: Satisfactory Pain: Controlled Complications: Absent Post Op Complications Complications None Follow Up Care/Instructions Patient Instructions None needed. Anesthesiology Discharge Order Discharge Order Patient is doing well, no complaints, stable vital signs, no apparent adverse anesthesia problems. No complications reported per nursing. CANDY ZAMUDIO CRNA Feb 16, 2019 13:20 POS
[2019-02-22] MEDS ORDERED: ACHD5005 PO (09:20)
[2019-02-22] MEDS ORDERED: NEOM28.33 TOP (09:20)
[2019-02-22] MEDS ORDERED: BUSP10TA95 PO (09:20)
[2019-02-22] MEDS ORDERED: TRAM50TA2 PO (09:20)
[2019-02-22] MEDS ORDERED: FLUT12AE4 IH (09:20)
[2019-02-22] MEDS ORDERED: ZINC28PA TOP (09:20)
[2019-02-22] MEDS ORDERED: APIX5TAB PO (09:20)
[2019-02-22] MEDS ORDERED: POLY17PO31 PO (09:20)
[2019-02-22] MEDS ORDERED: ALPR0.254 PO (09:20)
[2019-02-22] MEDS ORDERED: PRD20T PO (09:20)
[2019-02-22] MEDS ORDERED: NYST15OI13 TOP (09:20)
== END 2019-02-16 13:00 | disposition designated cancer center or children's hospital (05) ==
LOC: UNDOADMOB 09:15 → ICU 09:15 → UNDODISOB 13:16
PROVIDERS: ADMIT Internal Medicine Cardiovascular Disease; ATTEND Internal Medicine Cardiovascular Disease
DX: I48.0 Paroxysmal atrial fibrillation (principal); I34.0 Nonrheumatic mitral (valve) insufficiency; J96.10 Chronic respiratory failure, unspecified whether with hypoxia or hypercapnia; I25.10 Atherosclerotic heart disease of native coronary artery without angina pectoris; E11.22 Type 2 diabetes mellitus with diabetic chronic kidney disease; N18.3 Chronic kidney disease, stage 3 (moderate); E78.5 Hyperlipidemia, unspecified; I50.32 Chronic diastolic (congestive) heart failure; R60.0 Localized edema; Z87.891 Personal history of nicotine dependence; Z83.3 Family history of diabetes mellitus; Z82.49 Family history of ischemic heart disease and other diseases of the circulatory system; Z79.2 Long term (current) use of antibiotics; Z79.899 Other long term (current) drug therapy; Z79.4 Long term (current) use of insulin; Z79.52 Long term (current) use of systemic steroids; E66.2 Morbid (severe) obesity with alveolar hypoventilation
CPT/HCPCS: 93005; 93312; 93320; 93325; 96365; 96374; 99211

== ENCOUNTER → 2019-02-22 | Day surgery (SDC) | payer MEDICARE ==
[~2019-02-22] MED LIST changes: -ACET-2429 PO; +ACET650T41 PO; +ACHD5005 PO; +ALPR0.254 PO; -AZIT500T5 PO; +AZIT500T9 PO; +DILT240C92 PO; -DILT240C97 PO; +FLUT12AE4 IH; +LIDOCAINE UROJET 2% GEL 10 ML PKG ONE; +NEOM28.33 TOP; +NYST15OI13 TOP; +POLY17PO31 PO; +TRM50T PO; +ZINC28PA TOP
--- NOTE | 2019-02-22 13:34 | OPERATIVE REPORT ---
DATE OF SERVICE: 02/22/2019 PREOPERATIVE DIAGNOSIS: Gross hematuria. POSTOPERATIVE DIAGNOSIS: Gross hematuria. OPERATION PERFORMED: Cystoscopy. SURGEON: Alec Owusu MD. ANESTHESIA: Local. COMPLICATIONS: None. DESCRIPTION OF PROCEDURE: With the patient supine in his bed, the genitalia were prepped and draped in the usual sterile fashion. Urethra was infiltrated with 2% lidocaine jelly. Penile clamp was applied. This was then removed and a flexible cystoscope was introduced under vision. The anterior urethra was normal. The prostate was small and nonobstructing. Bladder neck was mildly obstructed. Bladder was inspected. There were some trabeculations. No foreign body, bladder tumor, stones or clots visualized. No carcinoma in situ or cystitis. Cystoscope was confirmed in an antegrade fashion and cystoscope was removed. The patient tolerated the procedure and anesthesia well and remained in his bed in stable condition. It was noted that his renal ultrasound was essentially negative. Job ID: [id number] DocumentID: [id number] Dictated Date: 02/22/2019 09:13:28 Tank Terminal Gauger Date: 02/22/2019 13:33:12 Dictated By: ALEC OWUSU MD
== END ==
LOC: SDC 07:31
PROVIDERS: ATTEND Urology
DX: R31.0 Gross hematuria (principal); N32.89 Other specified disorders of bladder; Z79.01 Long term (current) use of anticoagulants; Z87.891 Personal history of nicotine dependence

== ENCOUNTER 2019-02-26 22:07 | Emergency (ER) | payer MEDICARE ==
[~2019-02-26] VITALS: Ht 172 cm; Wt 150.0 kg
[~2019-02-26 22:07] MED LIST changes: +ACET-2429 PO; -ACET650T41 PO; +AZIT500T5 PO; -AZIT500T9 PO; -DILT240C92 PO; +DILT240C97 PO; -LIDOCAINE UROJET 2% GEL 10 ML PKG ONE; +TRAM50TA2 PO; -TRM50T PO
--- NOTE | 2019-02-26 22:07 | NUR ---
2207-PT ARRIVES TO ED ROOM 3 CPR IN PROGRESS, 1MG EPI GIVEN AND 1 SHOCK DEVILERED EN ROUTE. OPA PLACED BY EMS EN ROUTE 2207- 1MG EPI GIVEN 2 PULSE CHECK- PULSELESS, PEA ON MONITOR. 2211- BS 255MG/DL 2211- PT INTUBATED BY DR. ALEJANDRO, 8.0 TUBE 26CM AT THE TEETH. 2212-1MG EPI GIVEN 2212- PULSE CHECK, PULSELESS CPR RESUMED 2213- 1AMP OF BICARB GIVEN 2213-PT 02 IMPROVES TO 74% 02 VIA BVM 2217-16FR NG TUBE INSERTED 7- PULSE CHECK, ROSC. ACTIVE COOLING INITIATED WITH ICE COMPRESSES 2224- LEVOPHED INITIATED AT 1MCG/KG/MIN 2225- PULSE ABSENT, CPR RESUMED. 2226-PULSES RETURN. HR IS 114, 95% 02 VIA BVM 2230- TITRATED LEVOPHED TO 0.75 224- TITRATED LEVOPHED TO 0.8 D/T BP DROP 2251- TITRATED LEVOPHED TO 0.7 2240- 16FR MEDEROS CATHETER PLACED. 25ML OF URINE PRESENT 2300- EPI DRIP INITIATED AT 0.1MCG/KG 230- TITRATED LEVOPHED TO 0.4 2304- CENTRAL LINE PLACED BY DR. ALEJANDRO. 9- 80 OF IV LASIX INITIATED VIA MINI INFUSER 2309- LEVO DRIP BAG INITIATED AT 0.4 2325- RECTAL TEMP ASSESSED. 35.1
[2019-02-26] MEDS ORDERED: SODIUM BICARB 4.2% 5 MEQ/10 ML (INFANT) SYR IV ONE (22:09)
[2019-02-26] MEDS ORDERED: CATHETER FLUSH 10 ML SYR IV ONE (22:09)
[2019-02-26] MEDS ORDERED: EPINEPHrine 0.1 MG/ML 10 ML (HOSPIRA) SYR IJ ONE (22:09)
[2019-02-26] MEDS ORDERED: NS (IVPB) 250 ML ONE ×3 (22:17→23:05)
[2019-02-26] MEDS ORDERED: NOREPINEPHRINE 4 MG/4 ML (LEVOPHED) AMP IV ONE ×2 (22:17→23:06)
[2019-02-26] MEDS ORDERED: NS IV 1000 ML 1,000 ML IV SCH (22:35)
[2019-02-26] MEDS ORDERED: EPINEPHrine (OMNICELL DRIP KIT ONLY) 1 MG/ML AMP ONE (22:44)
[2019-02-26] MEDS ORDERED: VANCOMYCIN INJECTION 1,000 MG in NS (IVPB) 250 ML IV ONE (22:45)
[2019-02-26] MEDS ORDERED: CEFEPIME INJECTION 1,000 MG in WATER (STERILE) FOR INJECTION 10 ML IV ONE (22:45)
[2019-02-26] MEDS ORDERED: NOREPINEPHRINE 4 MG in NS (IVPB) 250 ML IV SCH (22:45)
[2019-02-26 22:48] LABS: BASOPHILS # (AUTO) 0.1 10^3/uL (0.0-0.1); BASOPHILS % (AUTO) 0 % (0-10); EOSINOPHILS # (AUTO) 0.1 10^3/uL (0.0-0.3); EOSINOPHILS % (AUTO) 0 % (0-10); HEMATOCRIT 30 % (40-54); HEMOGLOBIN 8.8 G/DL (13.3-17.7); LYMPHOCYTES # (AUTO) 6.5 X 10^3 (1.0-4.0); LYMPHOCYTES % (AUTO) 40 % (12-44); MEAN CORPUSCULAR HEMOGLOBIN 29 PG (25-34); MEAN CORPUSCULAR HGB CONC 29 G/DL (32-36); MEAN CORPUSCULAR VOLUME 99 FL (80-99); MEAN PLATELET VOLUME 9.8 FL (7.4-10.4); MONOCYTES # (AUTO) 0.8 X 10^3 (0.0-1.0); MONOCYTES % (AUTO) 5 % (0-12); NEUTROPHILS # (AUTO) 8.8 X 10^3 (1.8-7.8); NEUTROPHILS % (AUTO) 55 % (42-75); PLATELET COUNT 290 10^3/uL (130-400); RED CELL DISTRIBUTION WIDTH 18.8 % (10.0-14.5); WHITE BLOOD COUNT 16.2 10^3/uL (4.3-11.0)
[2019-02-26 22:51] LABS: INR 1.3 (0.8-1.4); PROTHROMBIN TIME PATIENT 16.8 SEC (12.2-14.7)
[2019-02-26 22:54] LABS: BILIRUBIN,URINE NEGATIVE (NEGATIVE); CLARITY,URINE SL CLOUDY; COLOR,URINE YELLOW; GLUCOSE, URINE (UA) 1+ (NEGATIVE); KETONES,URINE NEGATIVE (NEGATIVE); LEUKOCYTE ESTERASE ,URINE NEGATIVE (NEGATIVE); NITRITE,URINE NEGATIVE (NEGATIVE); PH,URINE 5.5 (5-9); PROTEIN,URINE 3+ (NEGATIVE)
[2019-02-26 23:00] VITALS: BP 196/120
[2019-02-26 23:00] LABS: ALANINE AMINOTRANSFERASE 38 U/L (0-55); ALBUMIN 3.1 GM/DL (3.2-4.5); ALKALINE PHOSPHATASE 90 U/L (40-136); BILIRUBIN,TOTAL 0.3 MG/DL (0.1-1.0); BUN/CREATININE RATIO 22; CALCIUM 8.5 MG/DL (8.5-10.1); CARBON DIOXIDE 28 MMOL/L (21-32); CHLORIDE 101 MMOL/L (98-107); CREATININE SERUM 1.45 MG/DL (0.60-1.30); GFR ESTIMATED 49; GLUCOSE 241 MG/DL (70-105); POTASSIUM 5.3 MMOL/L (3.6-5.0); SODIUM 143 MMOL/L (135-145); TOTAL PROTEIN 5.8 GM/DL (6.4-8.2)
[2019-02-26 23:02] LABS: BACTERIA,URINE LARGE /HPF
[2019-02-26] MEDS ORDERED: FUROSEMIDE 40 MG/4 ML INJ (LASIX) ONE ×2 (23:05→23:14)
[2019-02-26] MEDS ORDERED: EPINEPHrine 1 MG INJECTION 2 MG in NS (IVPB) 248 ML IV SCH (23:15)
--- NOTE | 2019-02-26 23:18 | ED CPR ---
HPI-CPR General Stated Complaint: CODE BLUE Source of Information: Patient, EMS, Intermediate Records Exam Limitations: Other History of Present Illness Date Seen by Provider: Feb 26, 2019 Time Seen by Provider: 22:00 Initial Comments Patient presents to the ER by EMS from [facility] where he was complaining to staff he was very short of breath. He recently was in the hospital for pneumonia. Staffstop breathing and had no pulsatile initiated CPR. EMS arrived and said he had emesis in his mouth and they were using a bag valve mask for ventilation. Continued CPR efforts until he arrived in the ER. EMS noted that he was here recently and admitted for pneumonia. He also has a history of COPD, CHF. No complaints of chest pain. Allergies and Home Medications Allergies Coded Allergies: JORGEANo Known Allergies (Verified Allergy, Unknown, 05/15/05) Home Medications Acetaminophen 650 Mg Tablet.er, 650 MG PO Q6H PRN for PAIN-MILD (1-4) OR TEMPATURE, (Reported) Alprazolam 0.25 Mg Tablet, 0.25 MG PO Q8H PRN for ANXIETY Prescribed by: YARIEL BUI on 02/22/19919 Amiodarone HCl 200 Mg Tablet, 200 MG PO BID, (Reported) HOLD FOR HR LESS THAN 55 Apixaban 5 Mg Tablet, 5 MG PO BID Prescribed by: YARIEL BUI on 02/22/19919 Arformoterol Tartrate 15 Mcg/2 Ml Vial.neb, 15 MCG IH BID, (Reported) Ascorbic Acid 1,000 Mg Tablet, 2,000 MG PO DAILY, (Reported) Azithromycin 500 Mg Tablet, 500 MG PO MON,WED,THU, (Reported) Buspirone HCl 10 Mg Tablet, 10 MG PO BID Prescribed by: YARIEL BUI on 02/22/19919 Fluticasone/Salmeterol 12 Gm Hfa.aer.ad, 2 PUFF IH BID@ Prescribed by: YARIEL BUI on 02/22/19919 Folic Acid 1 Mg Tablet, 2 MG PO DAILY, (Reported) Guaifenesin 100 Mg/5 Ml Liquid, 6 ML PO BID, (Reported) Hydralazine HCl 25 Mg Tablet, 25 MG PO BID, (Reported) HOLD FOR SYSTOLIC BP LESS THAN 100 Hydrocodone Bit/Acetaminophen 1 Tab Tab, 1 TAB PO Q4H PRN for PAIN-SEVERE (8-10) Prescribed by: YARIEL BUI on 02/22/19919 Insulin Lispro 100 Unit/1 Ml Vial, 100 UNIT SQ QIDACHS, (Reported) USE PER SLIDING SCALE: BG 70-140=0 UNITS 141-180=8 UNITS 181-220=10UNITS 221- 260=12 UNITS 261-300=14 UNITS 601-340=16 UNITS 341-380=18 UNITS 381-400=20 UNITS IF BG IS OVER 400 NOTIFY PROVIER Ipratropium/Albuterol Sulfate 3 Ml Ampul.neb, 3 ML NEB Q6H PRN for SHORTNESS OF BREATH, (Reported) Lactobacillus Acidophilus 1 Each Capsule, 1 EACH PO BID, (Reported) Metoprolol Tartrate 100 Mg Tablet, 100 MG PO BID, (Reported) Multivitamin 1 Each Tablet, 1 EACH PO DAILY, (Reported) Neomycin Chacko/Bacitrac Zn/Poly 28.3 Gm Oint...g., 0 GM TOP DAILY Prescribed by: YARIEL BUI on 02/22/19919 Nystatin 15 Gm Oint...g., 0 GM TOP BID PRN for RASH Prescribed by: YARIEL BUI on 02/22/19919 Ondansetron 4 Mg Tab.rapdis, 4 MG PO Q6H PRN for NAUSEA/VOMITING-1ST LINE, (Repo rted) Pantoprazole Sodium 40 Mg Tablet.dr, 40 MG PO DAILY, (Reported) Polyethylene Glycol 3350 17 Gm Powd.pack, 17 GM PO BID Prescribed by: YARIEL BUI on 02/22/19919 Prednisone 20 Mg Tab, 20 MG PO DAILY Prescribed by: YARIEL BUI on 02/22/19919 Sildenafil Citrate 20 Mg Tablet, 20 MG PO TID, (Reported) HOLD FOR SBP LESS THAN 110 Theophylline Anhydrous 100 Mg Tab.er.12h, 100 MG PO DAILY, (Reported) Tramadol HCl 50 Mg Tablet, 50 MG PO TID PRN for PAIN-MODERATE (5-7) Prescribed by: YARIEL BUI on 02/22/19919 Zinc Oxide 28 Gm Oint, 0 GM TOP TID PRN for DIAPER CHANGE Prescribed by: YARIEL BUI on 02/22/19919 Patient Home Medication List Home Medication List Reviewed: Yes Review of Systems Review of Systems Constitutional: see HPI (unable to obtain a review of systems secondary to patient in cardiac arrest) Past Xmderxt-Cibucd-Wklply Hx Patient Social History Alcohol Use: Occasionally Uses Alcohol Beverage of Choice: Beer Recreational Drug Use: No Smoking Status: Former Smoker Type Used: Cigarettes Former Smoker, Quit: Aug 15, 2005 Recent Foreign Travel: No Contact w/Someone Who Travel: No Recent Hopitalizations: Yes (12/04/18-12/20/18 FOR PNEUMONIA/COPD/AFIB/LEG CELLULITIS/SEPSIS) Immunizations Up To Date Tetanus Booster (TDap): More than 5yrs Date of Pneumonia Vaccine: Jan 06, 2019 Date of Influenza Vaccine: Dec 28, 2018 Seasonal Allergies Seasonal Allergies: No Past Medical History Surgeries: Yes Abdominal, Cardiac Respiratory: Yes Pneumonia, COPD Currently Using CPAP: No Currently Using BIPAP: Yes (SINCE IN HOSPITAL) Cardiac: Yes (CARDIAC CATH--NO INTERVENTION) Atrial Fibrillation, Chronic Edema/Swelling, High Cholesterol, Hypertension Neurological: Yes Neuropathy Reproductive Disorders: No Sexually Transmitted Disease: No Genitourinary: Yes Renal Failure Gastrointestinal: Yes Abdominal Hernia 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) Arthritis Endocrine: Yes (OBESITY) Diabetes, Insulin dep HEENT: Yes (GLASSES) Cataract Loss of Vision: Denies Hearing Impairment: Denies Cancer: No Psychosocial: Yes Sleep Difficulties, Anxiety, Depression Integumentary: No Blood Disorders: No Family Medical History Diabetes mellitus 19 FATHER G8 BROTHER Hypertension G8 BROTHER Myocardial infarction 19 FATHER, Onset:50's - 60 Physical Exam Vital Signs Vital Signs - First Documented 02/26/19 02/26/19 22:07 23:00 Temp 36.4 Pulse 0 Resp 0 B/P (MAP) 0/0 (0) Pulse Ox 56 O2 Delivery Non Rebreather FiO2 100 Capillary Refill : Height, Weight, BMI Height: 5'11" Weight: 260lbs. 0.0oz. 117.769649tg; 53.40 BMI Method:Stated General Appearance: Obese, Severe Distress HEENT: PERRL/EOMI, Moist Mucous Membranes, Other (emesis in the oropharynx) Neck: Full Range of Motion, Normal Inspection Respiratory: Crackles, Respiratory Distress (severe) Cardiovascular: Other (cardiac arrest) Gastrointestinal: Abnormal Bowel Sounds (absent), Distended Extremity: Other (all 4 extremities and oropharynx cyanotic) Neurologic/Psychiatric: Alert, Oriented x3 Skin: Cool, Cyanosis, Damp, Diaphoresis Focused Exam Lactate Level 02/26/19 22:10: Lactic Acid Level 5.09*H Lactic Acid Level Laboratory Tests Test 02/26/19 22:10 Lactic Acid Level 5.09 MMOL/L (0.50-2.00) *H Procedures/Interventions Lumen: triple Central Line Procedure: betadine prep (chlorhexidine prep), sterile drapes applied, sterile dressing applied Position: internal jugular (R) Anesthesia: Lidocaine Volume Anesthetic (ccs): 3 Complications: none Post Position: sutured, good blood return, position confirmed w/ CXR Reason for Intubation: CPR cardiac arrest Date of ETT Placement: Jan 11, 2019 Time of ETT Placement: 1214 Tube Size: 8.0 Positive End Tide CO2: Yes Breath Sounds after Intubation: bilateral-equal Intubation Complications: vomited (prior to arrival), apparent aspiration, O2 saturation decreased (16%) Post Intubation Xray: Yes 3 cm above the karthikeyan without pneumothorax After intubation patient's oxygen sats rapidly came up to 88%. Progress/Results/Core Measures Results/Orders Lab Results Laboratory Tests Test 02/26/19 22:10 02/26/19 22:46 02/26/19 23:15 Range/Units White Blood Count 16.2 H 4.3-11.0 10^3/uL Red Blood Count 3.03 L 4.35-5.85 10^6/uL Hemoglobin 8.8 L 13.3-17.7 G/DL Hematocrit 30 L 40-54 % Mean Corpuscular Volume 99 80-99 FL Mean Corpuscular Hemoglobin 29 25-34 PG Mean Corpuscular Hemoglobin Concent 29 L 32-36 G/DL Red Cell Distribution Width 18.8 H 10.0-14.5 % Platelet Count 290 130-400 10^3/uL Mean Platelet Volume 9.8 7.4-10.4 FL Neutrophils (%) (Auto) 55 42-75 % Lymphocytes (%) (Auto) 40 12-44 % Monocytes (%) (Auto) 5 0-12 % Eosinophils (%) (Auto) 0 0-10 % Basophils (%) (Auto) 0 0-10 % Neutrophils # (Auto) 8.8 H 1.8-7.8 X 10^3 Lymphocytes # (Auto) 6.5 H 1.0-4.0 X 10^3 Monocytes # (Auto) 0.8 0.0-1.0 X 10^3 Eosinophils # (Auto) 0.1 0.0-0.3 10^3/uL Basophils # (Auto) 0.1 0.0-0.1 10^3/uL Prothrombin Time 16.8 H 12.2-14.7 SEC INR Comment 1.3 0.8-1.4 Activated Partial Thromboplast Time 32 24-35 SEC Sodium Level 143 135-145 MMOL/L Potassium Level 5.3 H 3.6-5.0 MMOL/L Chloride Level 101 98-107 MMOL/L Carbon Dioxide Level 28 21-32 MMOL/L Anion Gap 14 5-14 MMOL/L Blood Urea Nitrogen 32 H 7-18 MG/DL Creatinine 1.45 H 0.60-1.30 MG/DL Estimat Glomerular Filtration Rate 49 BUN/Creatinine Ratio 22 Glucose Level 241 H 70-105 MG/DL Lactic Acid Level 5.09 *H 0.50-2.00 MMOL/L Calcium Level 8.5 8.5-10.1 MG/DL Corrected Calcium 9.2 8.5-10.1 MG/DL Total Bilirubin 0.3 0.1-1.0 MG/DL Aspartate Amino Transf (AST/SGOT) 27 5-34 U/L Alanine Aminotransferase (ALT/SGPT) 38 0-55 U/L Alkaline Phosphatase 90 40-136 U/L Troponin I < 0.028 <0.028 NG/ML B-Type Natriuretic Peptide 759.6 H <100.0 PG/ML Total Protein 5.8 L 6.4-8.2 GM/DL Albumin 3.1 L 3.2-4.5 GM/DL Urine Color YELLOW Urine Clarity SL CLOUDY Urine pH 5.5 5-9 Urine Specific [place] >=1.030 1.016-1.022 Urine Protein 3+ H NEGATIVE Urine Glucose (UA) 1+ H NEGATIVE Urine Ketones NEGATIVE NEGATIVE Urine Nitrite NEGATIVE NEGATIVE Urine Bilirubin NEGATIVE NEGATIVE Urine Urobilinogen 0.2 < = 1.0 MG/DL Urine Leukocyte Esterase NEGATIVE NEGATIVE Urine RBC (Auto) 2+ H NEGATIVE Urine RBC 10-25 H /HPF Urine WBC 10-25 H /HPF Urine Crystals NONE /LPF Urine Bacteria LARGE H /HPF Urine Casts NONE /LPF Urine Mucus NEGATIVE /LPF Urine Culture Indicated CULTURE PENDING Blood Gas Puncture Site RIGHT RADIAL Blood Gas Patient Temperature 36.4 Arterial Blood pH 7.17 *L 7.37-7.43 Arterial Blood Partial Pressure CO2 82 *H 35-45 MMHG Arterial Blood Partial Pressure O2 75 L 79-93 MMHG Arterial Blood HCO3 29 H 23-27 MMOL/L Arterial Blood Total CO2 31.9 H 21.0-31.0 MMOL/L Arterial Blood Oxygen Saturation 96 94-100 % Arterial Blood Base Excess 1.4 -2.5-2.5 MMOL/L Gurwinder Test YES-POS Blood Gas Ventilator Setting YES Blood Gas Inspired Oxygen 100% Micro Results Microbiology 02/26/19 Influenza Types A,B Antigen (TISHA) - Final, Complete My Orders Orders - KATIE ALEJANDRO Ns (Ivpb) (Sodium Chloride 0.9%) (02/26/19 22:17) Norepinephrine (Levophed) (02/26/19 22:17) Cbc With Automated Diff (02/26/19 22:35) Comprehensive Metabolic Panel (02/26/19 22:35) Blood Culture (02/26/19 22:35) Sputum Culture (02/26/19 22:35) Urinalysis (02/26/19 22:35) Urine Culture (02/26/19 22:35) Protime With Inr (02/26/19 22:35) Partial Thromboplastin Time (02/26/19 22:35) Chest 1 View, Ap/Pa Only (02/26/19 22:35) Ed Iv/Invasive Line Start (02/26/19 22:35) Ed Iv/Invasive Line Start (02/26/19 22:35) Ekg Tracing (02/26/19 22:35) Troponin I (02/26/19 22:35) Vital Signs Adult Sepsis Patie Q15M (02/26/19 22:35) O2 (02/26/19 22:35) Remove Rings In Anticipation O (02/26/19 22:35) Lactic Acid Analyzer (02/26/19 22:35) Influenza A And B Antigens (02/26/19 22:35) I-Stat Bedside Testing (02/26/19 22:35) Ns Iv 1000 Ml (Sodium Chloride 0.9%) (02/26/19 22:35) Cefepime Injection (Maxipime Injection) (02/26/19 22:45) Vancomycin Injection (Vancomycin Injecti (02/26/19 22:45) BNP (02/26/19 22:35) Norepinephrine (Levophed) (02/26/19 22:45) Artic Sun (Temperature Mgmt Sy (02/26/19 22:35) Epinephrine (Omnicell Drip Kit (Epinephr (02/26/19 22:44) Ns (Ivpb) (Sodium Chloride 0.9%) (02/26/19 22:44) Chest 1 View, Ap/Pa Only (02/26/19 23:07) Furosemide Injection (Lasix Injection) (02/26/19 23:05) Ns (Ivpb) (Sodium Chloride 0.9%) (02/26/19 23:05) Norepinephrine (Levophed) (02/26/19 23:06) Ns (Ivpb) (Sodium C... W/Epinephrine 1 (02/26/19 23:15) Furosemide Injection (Lasix Injection) (02/26/19 23:30) Furosemide Injection (Lasix Injection) (02/26/19 23:14) Arterial Blood Gas (02/26/19 23:22) Ekg Tracing (02/26/19 23:28) Continuous Ekg Monitoring (02/26/19 23:28) Propofol Injection (Diprivan Injection) (02/27/19 00:15) Arterial Blood Draw (02/26/19 ) Norepinephrine (Levophed) (02/27/19 00:28) Ns (Ivpb) (Sodium Chloride 0.9%) (02/27/19 00:29) Epinephrine (Omnicell Drip Kit (Epinephr (02/27/19 00:50) Ns (Ivpb) (Sodium Chloride 0.9%) (02/27/19 00:51) Medications Given in ED Current Medications Medications Dose Ordered Sig/Mayra Route Start Time Stop Time Status Last Admin Dose Admin Vancomycin HCl 1000 mg/Sodium Chloride 250 ml @ 250 mls/hr ONCE ONCE IV 02/26/19 22:45 02/26/19 23:44 DC 02/27/19 00:05 250 MLS/HR Vital Signs/I&O 12/14/19 12/14/19 12/14/19 12/14/19 22:07 23:00 23:21 23:49 Temp 36.4 Pulse 0 115 121 128 Resp 0 15 18 19 B/P (MAP) 0/0 (0) Pulse Ox 56 92 92 93 O2 Delivery Non Rebreather FiO2 100 100 100 Initial ECG Impression Date: Feb 26, 2019 Initial ECG Impression Time: 22:17 Initial ECG Rate: 120 Initial ECG Rhythm: Normal Sinus Initial ECG Impression: Normal, Nonspecific Changes Comment Sinus rhythm without clinically relevant ST elevation or depression. EKG : EKG Time: 23:27 Rate: 124 Rhythm: Normal Sinus Intervals: Normal ECG Comparisson: Unchanged ECG Impression: Normal, Nonspecific Changes Comment Normal sinus rhythm without clinically relevant ST elevation or depression. Diagnostic Imaging Diagonstic Imaging: Xray Plain Films/CT/US/NM/MRI: chest Comments Pulmonary edema. No pneumothorax. There is a ET tube 3 cm above the karthikeyan. OG appears to be over the stomach bubble Reviewed: Reviewed by Me Diagonstic Imaging: Xray Plain Films/CT/US/NM/MRI: chest Comments Worsening pulmonary edema. ET tube in good position. There is a central line placed on the right side of the spine terminating just in the superior vena cava right at the level of the right atria. No evidence of pneumothorax. Consults : Consulting Physician: PATY ULLOA MD Consults Notes Discussed Case lab and findings and he is not familiar/comfortable with arctic sun or post code patienst and reccomends transfer. He also states theere is inadequate nursing staff trained on the Arctic Sun procedure at this time. Critical Care Note Critical Care Start Time: 22:00 Stop Time: 23:59 Total Time (minutes) 119 m Progress Patient presents in pulseless electrical activity. We gave him a dose of epinephrine and started working on an airway. We also gave him a amp of bicarbonate and obtained blood for i-STAT. We were able to place an 8.0 ET tube at 26 at the teeth on first attempt. Noticed there was emesis in the back of his throat. His initial oxygen sat with a good pulsatile waveform on his left earlobe was 16%. After the ET tube was placed we're able to get his oxygen sats up to about 88%. Suctioned him and got some loose than foamy secretions but no food content. We were able to get return of spontaneous circulation at 05/05/16. No NG tube was placed and chest x-ray obtained showing good position. Levophed was started at 2024. We lost the pulse momentarily and had to perform one round of CPR and gave one dose of epinephrine. When we get return spontaneous circulation at 2227 we initiated at the drip as well. Blood and urine samples were sent. Sepsis workup was started. Cefepime and vancomycin were ordered for possible aspiration pneumonia. Central line was placed 2300. We ordered initially 40 mg of Lasix and then another 40. This did improve his ventilation and decrease his secretions. We have peaked at 10 rate of 18 and tidal volume 600 mL. Second chest x-ray revealed good position and central line. We were able to back off on pressors to 0.1 g epinephrine and 0.4, micrograms per kilogram of the Levophed. He is maintaining a good pressure in the 110-120 range systolic. After the first ROS see we placed ice bags all over his body. His repeat temperature at 2315 was 35.4C so we removed some of the bags to keep him in the 35.5-36.5 range. We called for air ambulance evacuation and were denied by air care. We'll try the other service and if not will use ground evacuation. He is too large to fit on our CT scanner. Family at bedside son, [id number] and . We updated them. Departure Impression Primary Impression: Cardiac arrest Additional Impressions: Acute exacerbation of CHF (congestive heart failure) Qualified Codes: I50.9 - Heart failure, unspecified Pneumonia Qualified Codes: J69.0 - Pneumonitis due to inhalation of food and vomit Septic shock UTI (urinary tract infection) Qualified Codes: N30.01 - Acute cystitis with hematuria Acute respiratory failure with hypoxia and hypercarbia Disposition: XFER [facility] Condition: Critical Transfer Transfer Reason: Exceeds level of care Time Spoke to Accepting Phy: 23:[address] Flores, floor covering printer, Vamshi Lopez [place]. except for the patient to the ICU. Room and report number given [id number]. Transfer Time: 01:10 Transfer Facility: [place], [place] Method of Transfer: Air Departure-Patient Inst. Referrals: EB ALEXIS MD (PCP/Family) Primary Care Physician KATIE ALEJANDRO Feb 26, 2019 23:18 POS
[2019-02-26 23:21] VITALS: BP 134/86
[2019-02-26 23:30] LABS: ABG BASE EXCESS 1.4 MMOL/L (-2.5-2.5); ABG OXYGEN SATURATION 96 % (94-100); ABG PO2 75 MMHG (79-93); ABG TCO2 31.9 MMOL/L (21.0-31.0)
[2019-02-26] MEDS ORDERED: FUROSEMIDE 40 MG/4 ML INJ (LASIX) IVP ONE (23:30)
[2019-02-26 23:31] LABS: ABG PCO2 82 MMHG (35-45); ABG PH 7.17 (7.37-7.43); ALLENS TEST YES-POS
[2019-02-26 23:32] LABS: INSPIRED O2 100%; PATIENT TEMP 36.4; VENTILATOR YES
[2019-02-26 23:49] VITALS: BP 114/75
--- NOTE | 2019-02-26 23:52 | NUR ---
herrera called back, declining transfer d/t weather
[2019-02-27] MEDS ORDERED: PROPOFOL INJECTION 50 ML IV SCH (00:15)
[2019-02-27] MEDS ORDERED: NOREPINEPHRINE 4 MG/4 ML (LEVOPHED) AMP IV ONE (00:28)
[2019-02-27] MEDS ORDERED: NS (IVPB) 250 ML ONE ×2 (00:29→00:51)
[2019-02-27] MEDS ORDERED: EPINEPHrine (OMNICELL DRIP KIT ONLY) 1 MG/ML AMP ONE (00:50)
[2019-02-27 01:00] VITALS: BP 178/91
--- NOTE | 2019-02-27 01:00 | NUR ---
PT URINE OUTPUT NOTED 120ML. PROVIDER NOTIFIED.
--- NOTE | 2019-02-27 01:00 | NUR ---
EPI DRIP MIXED FOR FLIGHT CREW PER DR. ALEJANDRO. SENT WITH STAFF
[2019-02-27] MEDS ORDERED: proPOfol 200 MG/20 ML (DIPRIVAN) VIAL IV ONE (04:15)
--- NOTE | 2019-02-27 05:26 | Diagnostic Imaging Report ---
INDICATION: Status post CODE BLUE. COMPARISON: 02/14/2019 FINDINGS: Single frontal radiographic view of the chest was obtained and demonstrates indwelling endotracheal tube which pass below the clavicular heads. Gastric tube extends inferiorly beyond the [id number]. Cardiomediastinal structures again show moderate cardiomegaly. There has been interval increase in pulmonary vascular congestion. Lungs also show interval increase in diffuse hazy opacification of the right hemithorax as well as increased opacification left base with obscuration of the left hemidiaphragm. There is no pneumothorax on either side. Osseous structures show no acute abnormalities. IMPRESSION: 1. Persistent cardiomegaly but with mild interval increase in pulmonary vascular congestion. 2. Interval increase in bilateral pleural effusions. 3. Lines and tubes as above. Dictated by: Dictated on workstation # [id number]
--- NOTE | 2019-02-27 05:30 | Diagnostic Imaging Report ---
INDICATION: Status post CODE BLUE. COMPARISON: Earlier the same day FINDINGS: Single frontal radiographic view of the chest was obtained and demonstrates interval placement of right internal jugular central venous catheter, tip of which terminates in the high SVC. Endotracheal tube is in stable position. Gastric tube extends inferiorly beyond the [id number] Cardiomediastinal structures again show moderate cardiomegaly. Pulmonary vascular congestion remains moderately prominent. Lungs show interval decreased inspiratory volumes with persistent bilateral pleural effusions, right greater than left. Pulmonary interstitium also now appears mildly prominent. Note is also made of prominent perihilar alveolar consolidation, right greater than left. Osseous structures show no acute abnormalities. IMPRESSION: 1. Lines and tubes as above. 2. Stable cardiomegaly with sequela of CHF including progression of interstitial pulmonary edema. 3. Bilateral pleural effusions, right greater than left. 4. Prominent perihilar alveolar consolidation is also noted and may be on the basis of pneumonia, although alveolar edema is favored. Dictated by: Dictated on workstation # [id number]
== END 2019-02-27 01:00 | disposition short-term general hospital (02) ==
LOC: EDUNIT# 22:07 → ER 22:08
DX: I46.9 Cardiac arrest, cause unspecified (principal); A41.9 Sepsis, unspecified organism; R65.21 Severe sepsis with septic shock; I11.0 Hypertensive heart disease with heart failure; I50.9 Heart failure, unspecified; J18.9 Pneumonia, unspecified organism; J96.00 Acute respiratory failure, unspecified whether with hypoxia or hypercapnia; N39.0 Urinary tract infection, site not specified; J44.9 Chronic obstructive pulmonary disease, unspecified; I48.91 Unspecified atrial fibrillation; E78.00 Pure hypercholesterolemia, unspecified; E11.40 Type 2 diabetes mellitus with diabetic neuropathy, unspecified; F41.9 Anxiety disorder, unspecified; F32.9 Major depressive disorder, single episode, unspecified; E66.9 Obesity, unspecified; Z79.01 Long term (current) use of anticoagulants; Z68.43 Body mass index [BMI] 50.0-59.9, adult; Z79.51 Long term (current) use of inhaled steroids; Z79.4 Long term (current) use of insulin; Z87.891 Personal history of nicotine dependence; Z82.49 Family history of ischemic heart disease and other diseases of the circulatory system
CPT/HCPCS: 31500; 36415; 36600; 51702; 71045; 80053; 81000; 82805; 83605; 83880; 84484; 85025; 85610; 85730; 87040; 87070; 87077; 87088; 87186; 87205; 87804; 93005; 94002; 94799; 96365; 96366; 96367; 96368; 96375